=== PATIENT | female | born 1955 | race Hispanic/Latino ===

== ENCOUNTER 2018-09-21 07:20 | Emergency (ER) | payer OTHER ==
--- OUTSIDE RECORDS SUMMARY | 2018-09-21 07:22 | XMS REPORT ---
:1955 Author Organization eClinicalWorks Care Team Providers Name Role Phone [place] Provider Role Unavailable Allergies, Adverse Reactions, Alerts Substance Reaction Event Type [place] Info Not Available Drug Allergy Problems Problem Type Condition Code Onset Dates Condition Status Assessment Pain in joint of left foot M25.572 Active Medications Medication Code Code Instructions Start End Date Status Dosage System Date Lisinopril [facility] 77891638299 40 MG Oral Active (Prior Auth: Rx Ref#:[id number]) Amlodipine ND 92942149641 5 MG Oral Active (Prior Besylate Auth: Rx Ref#:[id number]) Acetaminophen- ND 08843920358 300-30 MG Oral Active (Schedule Codeine #3 III Drug) (Prior Auth: Rx Ref#:[id number]) Results No Known Results Summary Purpose eClinicalWorks Submission
[2018-09-21 08:10] LABS: Urine Blood TRACE (NEG); Urine Glucose NEGATIVE (NEG); Urine Protein NEGATIVE (NEG); Urine pH 6.5 (5.0-7.0)
[2018-09-21 08:11] LABS: Absolute Lymphocytes (CBC) 2.2 K/uL (0.7-4.9); Absolute Monocytes 0.5 K/uL (0.1-1.3); Absolute Neutrophil 4.7 K/uL (1.8-8.0); Basophils % 0.7 % (0-1.3); Eosinophils % 2.1 % (0-4.4); Hematocrit 37.8 % (36.0-45.0); Lymphocytes % 28.9 % (15.3-44.8); MPV 8.3 fL (7.6-11.3); RBC Red Blood Cell Count 4.32 M/uL (3.86-4.86)
[2018-09-21] MEDS ORDERED: NA CHLORIDE 0.9% 1,000 ML ONE (08:14)
[2018-09-21] MEDS ORDERED: PANTOPRAZOLE 40 MG INJ ONE (08:14)
[2018-09-21 08:30] LABS: ALT/SGPT 15 U/L (12-78); AST/SGOT 13 U/L (15-37); Albumin 3.7 g/dL (3.4-5.0); Alkaline Phosphatase 102 U/L (45-117); BUN Blood Urea Nitrogen 14 mg/dL (7-18); Bicarbonate 29 mmol/L (21-32); Bilirubin Direct 0.1 mg/dL (0-0.2); Bilirubin Total 0.4 mg/dL (0.2-1.0); Glucose Level 103 mg/dL (74-106); Lipase 88 U/L (73-393); Potassium 3.8 mmol/L (3.5-5.1); Protein, Total 7.4 g/dL (6.4-8.2); Sodium Level 141 mmol/L (136-145)
[2018-09-21] MEDS ORDERED: FENTANYL CITR 100 MCG/2 ML ONE (08:32)
--- NOTE | 2018-09-21 09:14 | RAD REPORT ---
EXAM DESCRIPTION: CT - Abdomen Pelvis W Contrast - 09/21/2018 9:01 am CLINICAL HISTORY: Abdominal pain, left lower quadrant pain, history of gastric sleeve COMPARISON: None. TECHNIQUE: Biphasic, helical CT imaging of the abdomen and pelvis was performed following 100 ml non -ionic IV contrast. No oral contrast administered. All CT scans are performed using dose optimization technique as appropriate and may include automated exposure control or mA/KV adjustment according to patient size. FINDINGS: No suspicious findings in the lung bases. No pericardial thickening or effusion. The liver, spleen, and pancreas show no suspicious findings. Gallbladder and biliary tree are also wi thout suspicious finding. Liver is borderline to mild fatty infiltrated. Symmetric renal function is seen with no hydronephrosis or suspicious renal mass. No pyelonephritis o r acute parenchymal process. A 3 centimeter medial upper pole right renal cyst is present. An additio nal 10 millimeter cyst is present upper pole right kidney. No urinary bladder abnormality. Uterus and ovaries show no suspicious findings. Vascular calcifications and phleboliths are seen along the pelv ic floor. No adrenal abnormalities. Gastric sleeve surgical changes are noted. Small hiatal hernia is present. An acute gastric process i s not suspected. No dilated large or small bowel. No diverticulitis or acute left lower quadrant abno rmality seen. No appendicitis findings. No free air, free fluid or inflammatory stranding. No mass or bulky lymphadenopathy. No omental th ickening. Patient has a 2.5 centimeter fat only umbilical hernia. Patient has a 10 cm supraumbilical ventral hernia at the level of the left lobe liver. This contains only fat. Neck is 5 cm. Disc and bony degenerative changes are present. No acute finding. No acute vascular process. IMPRESSION: No diverticulitis or other abnormality in the left lower quadrant to explain the patient 's pain pattern. Large upper abdominal ventral hernia 10 cm in diameter with a 5 centimeter neck. This contains only f at tissue. Borderline to mild fatty infiltration of the liver. Additional nonacute findings detailed in the bod y of the report.
--- NOTE | 2018-09-21 09:24 | ER ---
Nurse's Notes [facility] Name: Anaid Martinez Age: 63 yrs Sex: Female : 1955 Arrival Date: 09/21/2018 Time: 07:27 Bed 19 Private MD: None, None Diagnosis: Ventral hernia without obstruction or gangrene;Lower abdominal pain, unspecified Presentation: 09/21 07:35 Presenting complaint: Patient states: Sudden onset LLQ pain that began at around 0400 ph this morning, also reports nausea and loose stools, denies fever or vomiting. Transition of care: patient was not received from another setting of care. Onset of symptoms was September 21, 2018. Risk Assessment: Do you want to hurt yourself or someone else? Patient reports no desire to harm self or others. Initial Sepsis Screen: Does the patient meet any 2 criteria? No. Patient's initial sepsis screen is negative. Does the patient have a suspected source of infection? No. Patient's initial sepsis screen is negative. Care prior to arrival: None. 07:35 Method Of Arrival: Ambulatory ph 07:35 Acuity: KATHY 3 ph Historical: - Allergies: 07:37 No Known Allergies; ph - Home Meds: 07:37 Lisinopril Oral [Active]; ph - PMHx: 07:37 Arthritis; borderline diabetic; Hypertension; ph - PSHx: 07:37 gastric sleeve; ph - Immunization history:: Adult Immunizations unknown. - Social history:: Smoking status: Patient/guardian denies using tobacco. - Ebola Screening: : No symptoms or risks identified at this time. Screenin:47 Abuse screen: Denies threats or abuse. Denies injuries from another. Nutritional bp screening: No deficits noted. Tuberculosis screening: No symptoms or risk factors identified. Fall Risk None identified. Assessment: 07:40 General: Appears in no apparent distress. comfortable, obese, Behavior is cooperative, bp appropriate for age, anxious. Pain: Complains of pain in abdomen. Neuro: Level of Consciousness is awake, alert, obeys commands, Oriented to person, place, time, situation, Appropriate for age. Cardiovascular: No deficits noted. Respiratory: Airway is patent Respiratory effort is even, unlabored, Respiratory pattern is regular, symmetrical. GI: Bowel sounds present X 4 quads. Abd is soft X 4 quads. : No signs and/or symptoms were reported regarding the genitourinary system. EENT: No deficits noted. Derm: No deficits noted. Musculoskeletal: Circulation, motion, and sensation intact. Range of motion: intact in all extremities. 09:16 Reassessment: PT RETURNED FROM CT. ALL CURRENT STUDIES COMPLETED. bp 10:15 Reassessment: PT D/C HOME AMBULATORY WITH FAMILY, DX WITH VENTRAL HERNIA AND INTESTINAL bp GAS. Vital Signs: 07:36 BP 147 / 83; Pulse 56; Resp 18; Temp 97.3; Pulse Ox 97% on R/A; Weight 90.72 kg; Height ph 5 ft. 5 in. (165.10 cm); 08:11 BP 132 / 69; Pulse 53; Resp 14; Pulse Ox 98% ; bp 09:16 BP 112 / 71; Pulse 49; Resp 14; Pulse Ox 100% ; bp 10:15 BP 136 / 59; Pulse 55; Resp 14; Pulse Ox 98% ; bp 07:36 Body Mass Index 33.28 (90.72 kg, 165.10 cm) ph ED Course: 07:27 Patient arrived in ED. mr 07:27 None, None is Private Physician. mr 07:28 Arnold Domingo, RN is Primary Nurse. jd3 07:30 Denys Rogers, BRYANNA is Primary Nurse. bp 07:31 Fariba Chan FNP-C [facility]. snw 07:31 Matheus Olvera MD is Attending Physician. snw 07:36 Triage completed. ph 07:38 Arm band placed on Patient placed in an exam room. ph 07:47 Patient has correct armband on for positive identification. Bed in low position. Call bp light in reach. Side rails up X2. Adult w/ patient. 07:55 Inserted saline lock: 20 gauge in right antecubital area, using aseptic technique. bp Blood collected. 09:02 CT Abd/Pelvis - W/Contrast In Process Unspecified. EDMS 10:15 No provider procedures requiring assistance completed. IV discontinued, intact, bp bleeding controlled, No redness/swelling at site. Pressure dressing applied. Administered Medications: 07:55 Drug: NS 0.9% 1000 ml Route: IV; Rate: 125 ml/hr; Site: right antecubital; bp 10:06 Follow up: IV Status: Completed infusion; IV Intake: 250ml bp 07:55 Drug: ProTONIX 40 mg Route: IVP; Site: right antecubital; bp 09:24 Follow up: Response: Pain is unchanged, physician notified bp 09:24 Follow up: Response: No adverse reaction bp 08:25 Drug: fentaNYL (PF) 25 mcg Route: IVP; Site: right antecubital; bp 09:24 Follow up: Response: Pain is unchanged, physician notified bp 10:05 Drug: Simethicone 120 mg {Note: RECD FROM PHARMACY AT 1005.} Route: PO; bp 10:06 Follow up: Response: Pain is decreased bp Intake: 10:06 IV: 250ml; Total: 250ml. bp Outcome: 09:24 Discharge ordered by MD. snw 10:16 Discharged to home ambulatory, with family. bp 10:16 Condition: stable 10:16 Discharge instructions given to patient, family, Instructed on discharge instructions, follow up and referral plans. medication usage, Demonstrated understanding of instructions, follow-up care, medications, Prescriptions given X 1. 10:17 Patient left the ED. bp Signatures: Dispatcher [employer] EDMS Fariba Chan, REVENUE DIRECTOR-C REVENUE DIRECTOR-Csnw [place] MarkMavis, RN RN Arnold Molina RN RN Denys Mir RN RN bp Corrections: (The following items were deleted from the chart) 09:21 09:16 BP 197 / 54; Pulse 92bpm; Resp 19bpm; Pulse Ox 99%; bp bp
--- NOTE | 2018-09-21 09:24 | EDPHYS ---
Physician Documentation [facility] Name: Anaid Martinez Age: 63 yrs Sex: Female : 1955 Arrival Date: 09/21/2018 Time: 07:27 Bed 19 Private MD: None, None ED Physician Matheus Olvera HPI: 09/21 07:49 This 63 yrs old Female presents to ER via Ambulatory with complaints of snw Abdominal Pain. 07:49 The patient presents with abdominal pain in the periumbilical area. Onset: The snw symptoms/episode began/occurred suddenly, at 04:00. The symptoms do not radiate. The symptoms are described as crampy, "every 20 seconds". Severity of pain: At its worst the pain was moderate severe. The patient has not experienced similar symptoms in the past. The patient has not recently seen a physician, sees someone at [facility]. Historical: - Allergies: 07:37 No Known Allergies; ph - Home Meds: 07:37 Lisinopril Oral [Active]; ph - PMHx: 07:37 Arthritis; borderline diabetic; Hypertension; ph - PSHx: 07:37 gastric sleeve; ph - Immunization history:: Adult Immunizations unknown. - Social history:: Smoking status: Patient/guardian denies using tobacco. - Ebola Screening: : No symptoms or risks identified at this time. ROS: 07:49 Constitutional: Negative for fever, chills, and weight loss, Eyes: Negative for injury, snw pain, redness, and discharge, ENT: Negative for injury, pain, and discharge, Neck: Negative for injury, pain, and swelling, Cardiovascular: Negative for chest pain, palpitations, and edema, Respiratory: Negative for shortness of breath, cough, wheezing, and pleuritic chest pain, Back: Negative for injury and pain, : Negative for injury, bleeding, discharge, and swelling, MS/Extremity: Negative for injury and deformity, Skin: Negative for injury, rash, and discoloration, Neuro: Negative for headache, weakness, numbness, tingling, and seizure. 07:49 Abdomen/GI: Positive for abdominal pain, Negative for vomiting, diarrhea. Exam: 07:48 Constitutional: This is a well developed, well nourished patient who is awake, alert, snw and in no acute distress. Head/Face: Normocephalic, atraumatic. Eyes: Pupils equal round and reactive to light, extra-ocular motions intact. Lids and lashes normal. Conjunctiva and sclera are non-icteric and not injected. Cornea within normal limits. Periorbital areas with no swelling, redness, or edema. ENT: Nares patent. No nasal discharge, no septal abnormalities noted. Tympanic membranes are normal and external auditory canals are clear. Oropharynx with no redness, swelling, or masses, exudates, or evidence of obstruction, uvula midline. Mucous membranes moist. Neck: Trachea midline, no thyromegaly or masses palpated, and no cervical lymphadenopathy. Supple, full range of motion without nuchal rigidity, or vertebral point tenderness. No Meningismus. Chest/axilla: Normal chest wall appearance and motion. Nontender with no deformity. No lesions are appreciated. Cardiovascular: Regular rate and rhythm with a normal S1 and S2. No gallops, murmurs, or rubs. Normal PMI, no JVD. No pulse deficits. Respiratory: Lungs have equal breath sounds bilaterally, clear to auscultation and percussion. No rales, rhonchi or wheezes noted. No increased work of breathing, no retractions or nasal flaring. Back: No spinal tenderness. No costovertebral tenderness. Full range of motion. Skin: Warm, dry with normal turgor. Normal color with no rashes, no lesions, and no evidence of cellulitis. MS/ Extremity: Pulses equal, no cyanosis. Neurovascular intact. Full, normal range of motion. Neuro: Awake and alert, GCS 15, oriented to person, place, time, and situation. Cranial nerves II-XII grossly intact. Motor strength 5/5 in all extremities. Sensory grossly intact. Cerebellar exam normal. Normal gait. 07:48 Abdomen/GI: Inspection: abdomen appears normal, Bowel sounds: normal, Palpation: mild abdominal tenderness, in the umbilical area and anterior aspect of left lateral abdomen. Vital Signs: 07:36 BP 147 / 83; Pulse 56; Resp 18; Temp 97.3; Pulse Ox 97% on R/A; Weight 90.72 kg; Height ph 5 ft. 5 in. (165.10 cm); 08:11 BP 132 / 69; Pulse 53; Resp 14; Pulse Ox 98% ; bp 09:16 BP 112 / 71; Pulse 49; Resp 14; Pulse Ox 100% ; bp 10:15 BP 136 / 59; Pulse 55; Resp 14; Pulse Ox 98% ; bp 07:36 Body Mass Index 33.28 (90.72 kg, 165.10 cm) ph MDM: 07:31 Patient medically screened. snw 09:31 Data reviewed: vital signs, nurses notes. Data interpreted: Pulse oximetry: on room air snw is 100 %. Interpretation: normal. Special discussion: Based on the patient's Hx, exam, and Dx evaluation, there is no indication for emergent surgery or inpatient Tx. It is understood by the patient/guardian that if the Sx's persist or worsen they need to return immediately for re-evaluation. Based on the history and exam findings, there is no indication for further emergent testing or inpatient evaluation. I discussed with the patient/guardian the need to see the sas bi developer for further evaluation of the symptoms. I discussed with the patient/guardian the need to see the primary care provider for further evaluation of the symptoms. 09/21 07:48 Order name: Basic Metabolic Panel; Complete Time: 08:37 snw 09/21 07:48 Order name: CBC with Diff; Complete Time: 08:20 w 09/21 07:48 Order name: Creatinine for Radiology; Complete Time: 08:30 w 09/21 07:48 Order name: Hepatic Function; Complete Time: 08:37 w 09/21 07:48 Order name: Lipase; Complete Time: 08:37 w 09/21 08:02 Order name: Urine Dipstick--Ancillary (enter results); Complete Time: 08:20 eb 09/21 07:48 Order name: IV Saline Lock; Complete Time: 08:10 w 09/21 07:48 Order name: Labs collected and sent; Complete Time: 08:10 w 09/21 07:48 Order name: CT Abd/Pelvis - W/Contrast; Complete Time: 09:21 snw Administered Medications: 07:55 Drug: NS 0.9% 1000 ml Route: IV; Rate: 125 ml/hr; Site: right antecubital; bp 10:06 Follow up: IV Status: Completed infusion; IV Intake: 250ml bp 07:55 Drug: ProTONIX 40 mg Route: IVP; Site: right antecubital; bp 09:24 Follow up: Response: Pain is unchanged, physician notified bp 09:24 Follow up: Response: No adverse reaction bp 08:25 Drug: fentaNYL (PF) 25 mcg Route: IVP; Site: right antecubital; bp 09:24 Follow up: Response: Pain is unchanged, physician notified bp 10:05 Drug: Simethicone 120 mg {Note: RECD FROM PHARMACY AT 1005.} Route: PO; bp 10:06 Follow up: Response: Pain is decreased bp Disposition: 16:00 Co-signature as Attending Physician, Matheus Olvera MD I agree with the assessment and kdr plan of care. Disposition: 09/21/18 09:24 Discharged to Home. Impression: Ventral hernia without obstruction or gangrene, Lower abdominal pain, unspecified. - Condition is Stable. - Discharge Instructions: Abdominal Pain, Adult, Intestinal Gas and Gas Pains, Pediatric, Ventral Hernia. - Prescriptions for Protonix 40 mg Oral Tablet - take 1 tablet by ORAL route once daily; 30 tablet. - Medication Reconciliation Form, Thank You Letter, Antibiotic Education, Prescription Opioid Use form. - Follow up: Private Physician; When: 1 - 2 days; Reason: Recheck today's complaints, Continuance of care, Re-evaluation by your physician. Follow up: Emergency Department; When: As needed; Reason: Worsening of condition. Signatures: Dispatcher [employer] EDTN Matheus Olvera MD MD [facility] Fariba Chan, SHARE HOLDER-C SHARE HOLDER-Csnw Mavis Ruth, BRYANNA RN Denys Rogers RN RN bp Corrections: (The following items were deleted from the chart) 10:17 09:24 09/21/2018 09:24 Discharged to Home. Impression: Ventral hernia without bp obstruction or gangrene; Lower abdominal pain, unspecified. Condition is Stable. Forms are Medication Reconciliation Form, Thank You Letter, Antibiotic Education, Prescription Opioid Use. Follow up: Private Physician; When: 1 - 2 days; Reason: Recheck today's complaints, Continuance of care, Re-evaluation by your physician. Follow up: Emergency Department; When: As needed; Reason: Worsening of condition. snw
[2018-09-21] MEDS ORDERED: SIMETHICONE 80 MG TAB PO ONE (10:00)
[2018-09-21 10:28] VITALS: TEMP 97.3
[2018-09-21 10:31] VITALS: BP 136/59; O2SAT 98
== END 2018-09-21 10:17 | disposition home or self-care (01) ==
LOC: ER 07:20
DX: K43.9 Ventral hernia without obstruction or gangrene (principal); I10 Essential (primary) hypertension
CPT/HCPCS: 36415; 74177; 80048; 80076; 81003; 83690; 85025; 96361; 96374; 96375; 99284; C9113; J3010; J7030; Q9967

== ENCOUNTER 2019-03-15 06:41 | Day surgery (SDC) | payer OTHER ==
--- OUTSIDE RECORDS SUMMARY | 2019-03-15 06:43 | XMS REPORT ---
:1955 Author Organization eClinicalWorks Care Team Providers Name Role Phone [place] Provider Role Unavailable Allergies, Adverse Reactions, Alerts Substance Reaction Event Type [place] Info Not Available Drug Allergy Problems Problem Type Condition Code Onset Dates Condition Status Assessment Pain in joint of left foot M25.572 Active Medications Medication Code Code Instructions Start End Date Status Dosage System Date Lisinopril [facility] 39642547593 40 MG Oral Active (Prior Auth: Rx Ref#:[id number]) Amlodipine ND 26464199825 5 MG Oral Active (Prior Besylate Auth: Rx Ref#:[id number]) Acetaminophen- ND 99524346248 300-30 MG Oral Active (Schedule Codeine #3 III Drug) (Prior Auth: Rx Ref#:[id number]) Results No Known Results Summary Purpose eClinicalWorks Submission
[2019-03-15 07:24] VITALS: TEMP 97.6
[2019-03-15] MEDS ORDERED: Ringers Lactate 1,000 ML IV ONE (07:24)
[2019-03-15] MEDS ORDERED: LIDOCAINE 1% MPF 5 ML VIAL ONE (08:32)
[2019-03-15] MEDS ORDERED: PROPOFOL 200 MG/20 ML VIAL IV ONE (08:32)
[2019-03-15 08:54] VITALS: BP 113/65; O2SAT 93
--- NOTE | 2019-03-15 19:04 | OP ---
Surgeon: Osbaldo Arita MD Procedure To Be Performed: Esophagogastroduodenoscopy. Indications For Procedure: Dyspepsia, abdominal pain, dysphagia. Plan For Anesthesia: Monitored anesthesia care. Complexity: Average. Technique: After obtaining informed consent from the patient and explaining risks and complications, which include, but are not limited to, bleeding, infection, perforation, and anesthesia complication , the patient was placed in a left lateral position, and sedation was given. The scope was advanced into the mouth and carefully guided up till the third portion of the duodenum. After the completion of the examination, the scope and equipment were withdrawn and procedure terminated in a safe manner. Findings: Esophagus: There was mild tortuosity seen in the entire esophagus, likely due to prior ga stric operations. No stenosis was seen. In the distal part, a small 2 cm hiatal hernia was visualiz ed. The Z-line was irregular. The GE junction was around 34 cm. Biopsies were taken from the irreg ular Z-line. Stomach: Mild patchy erythema seen in the body and antrum. Biopsies taken. In the whole stomach, t here was evidence of gastric sleeve surgery. Duodenum: The bulb, second, and third portion appeared normal except for mild granularity. Biopsies were taken from the third portion. Complications: None. Tolerance To Anesthesia: Excellent. Preoperative Diagnoses: Postoperative changes in the esophagus and the stomach, gastritis, hiatal he rnia. Plan: 1.Await pathology results. 2.Follow up in the GI clinic in 2 weeks. 3.Oral PPI once a day. 4.May need ultrasound if not recently done. US/MODL Voice ID: [id number] Report ID: [id number]
== END 2019-03-15 09:12 | disposition home or self-care (01) ==
LOC: OR 06:41
PROVIDERS: ATTEND Internal Medicine Gastroenterology
PROC: 0DB78ZX Excision of Stomach, Pylorus, Via Natural or Artificial Opening Endoscopic, Diagnostic (ICD-10-PCS; 2019-03-15)
PROC: 0DB68ZX Excision of Stomach, Via Natural or Artificial Opening Endoscopic, Diagnostic (ICD-10-PCS; 2019-03-15)
PROC: 0DB58ZX Excision of Esophagus, Via Natural or Artificial Opening Endoscopic, Diagnostic (ICD-10-PCS; 2019-03-15)
PROC: 0DB98ZX Excision of Duodenum, Via Natural or Artificial Opening Endoscopic, Diagnostic (ICD-10-PCS; principal; 2019-03-15 08:00)
DX: K29.50 Unspecified chronic gastritis without bleeding (principal); B96.81 Helicobacter pylori [H. pylori] as the cause of diseases classified elsewhere; K44.9 Diaphragmatic hernia without obstruction or gangrene; Z98.84 Bariatric surgery status; R13.10 Dysphagia, unspecified; R68.81 Early satiety; R14.0 Abdominal distension (gaseous); K59.00 Constipation, unspecified; I10 Essential (primary) hypertension; Z79.899 Other long term (current) drug therapy
CPT/HCPCS: 88305; 88312; J2704

== ENCOUNTER 2019-03-17 22:53 | Emergency (ER) | payer OTHER ==
--- OUTSIDE RECORDS SUMMARY | 2019-03-17 22:55 | XMS REPORT ---
:1955 Author Organization eClinicalWorks Care Team Providers Name Role Phone Mu [place] Provider Role Unavailable Allergies, Adverse Reactions, Alerts Substance Reaction Event Type [place] Info Not Available Drug Allergy Problems Problem Type Condition Code Onset Dates Condition Status Assessment Pain in joint of left foot M25.572 Active Medications Medication Code Code Instructions Start End Date Status Dosage System Date Lisinopril [facility] [id number] 40 MG Oral Active (Prior Auth: Rx Ref#:[id number]) Amlodipine ND 36798561373 5 MG Oral Active (Prior Besylate Auth: Rx Ref#:[id number]) Acetaminophen- ND 28826185750 300-30 MG Oral Active (Schedule Codeine #3 III Drug) (Prior Auth: Rx Ref#:[id number]) Results No Known Results Summary Purpose eClinicalWorks Submission
[2019-03-17] MEDS ORDERED: KETOROLAC 30 MG/ML INJ ONE (23:33)
--- NOTE | 2019-03-18 00:08 | EDPHYS ---
Physician Documentation [facility] Name: Anaid Martinez Age: 64 yrs Sex: Female : 1955 Arrival Date: 03/17/2019 Time: 22:57 Bed 7 Private MD: ED Physician John Mehta HPI: 03/17 23:45 This 64 yrs old Female presents to ER via Wheelchair with complaints of Fall pm1 Injury. 23:45 Details of fall: The patient fell from an upright position, while walking. Onset: The pm1 symptoms/episode began/occurred just prior to arrival. Associated injuries: The patient sustained right hamstring. Severity of symptoms: in the emergency department the symptoms are actually worse. The patient has experienced a previous episode, and the symptoms today are exactly the same, December 2018. Patient with workman's compensation injury at the same location, right hamstring that she injured in December 2018. Has appointment with workman's compensation physician tomorrow for reevaluation. Patient was walking at home and tripped on some furniture with left foot and caused more pain to there right hamstring. No headache, head injury, neck pain, LOC. Historical: - Allergies: 23:09 Hydrocodone-Acetaminophen; tl2 - Home Meds: 23:09 lisinopril Oral [Active]; tl2 - PMHx: 23:09 Arthritis; borderline diabetic; Hypertension; tl2 - PSHx: 23:09 None; tl2 - Immunization history:: Adult Immunizations up to date. - Social history:: Smoking status: Patient/guardian denies using tobacco. - Ebola Screening: : No symptoms or risks identified at this time. ROS: 23:45 Constitutional: Negative for fever, chills, and weight loss, Eyes: Negative for injury, pm1 pain, redness, and discharge, ENT: Negative for injury, pain, and discharge, Neck: Negative for injury, pain, and swelling, Cardiovascular: Negative for chest pain, palpitations, and edema, Respiratory: Negative for shortness of breath, cough, wheezing, and pleuritic chest pain, Abdomen/GI: Negative for abdominal pain, nausea, vomiting, diarrhea, and constipation, Back: Negative for injury and pain, : Negative for injury, bleeding, discharge, and swelling. 23:45 Skin: Negative for injury, rash, and discoloration, Neuro: Negative for headache, weakness, numbness, tingling, and seizure. 23:45 MS/extremity: Positive for pain, of the right hamstring, Negative for deformity. Exam: 23:45 Constitutional: This is a well developed, well nourished patient who is awake, alert, pm1 and in no acute distress. Head/Face: Normocephalic, atraumatic. Neck: Trachea midline, no thyromegaly or masses palpated, and no cervical lymphadenopathy. Supple, full range of motion without nuchal rigidity, or vertebral point tenderness. No Meningismus. Chest/axilla: Normal chest wall appearance and motion. Nontender with no deformity. No lesions are appreciated. Cardiovascular: Regular rate and rhythm with a normal S1 and S2. No gallops, murmurs, or rubs. Normal PMI, no JVD. No pulse deficits. Respiratory: Lungs have equal breath sounds bilaterally, clear to auscultation and percussion. No rales, rhonchi or wheezes noted. No increased work of breathing, no retractions or nasal flaring. Abdomen/GI: Soft, non-tender, with normal bowel sounds. No distension or tympany. No guarding or rebound. No evidence of tenderness throughout. Back: No spinal tenderness. No costovertebral tenderness. Full range of motion. Skin: Warm, dry with normal turgor. Normal color with no rashes, no lesions, and no evidence of cellulitis. 23:45 Musculoskeletal/extremity: Extremities: grossly normal except: noted in the right hamstring: pain, tenderness, There is no evidence of decreased ROM, deformity, Circulation is intact in all extremities. Sensation intact. Weight bearing: able to fully bear weight. Vital Signs: 23:09 BP 134 / 96; Pulse 101; Resp 18; Temp 98.1(O); Pulse Ox 95% on R/A; Weight 90.72 kg; tl2 Height 4 ft. 11 in. (149.86 cm); Pain 06/30; 03/18 00:11 BP 130 / 88; Pulse 99; Resp 18; Temp 97.6; Pulse Ox 97% on R/A; ea 03/17 23:09 Body Mass Index 40.39 (90.72 kg, 149.86 cm) tl2 MDM: 03/17 23:05 Patient medically screened. xuan 03/18 00:00 ED course: Patient walked out of the room, feeling better and requesting to go home. pm1 00:05 Data reviewed: vital signs. Data interpreted: Pulse oximetry: on room air is 95 %. pm1 Interpretation: normal. Counseling: I had a detailed discussion with the patient and/or guardian regarding: the historical points, exam findings, and any diagnostic results supporting the discharge/admit diagnosis, the need for outpatient follow up, a orthopedic surgeon, to return to the emergency department if symptoms worsen or persist or if there are any questions or concerns that arise at home. Administered Medications: 03/17 23:25 Drug: TORadol 60 mg Route: IM; Site: right gluteus; ea 03/18 00:00 Follow up: Response: No adverse reaction; Pain is decreased ea Disposition: 09:37 Co-signature as Attending Physician, John Mehta MD I agree with the assessment and [facility] plan of care. Disposition: 03/18/19 00:07 Discharged to Home. Impression: Strain of muscle, fascia and tendon of the posterior muscle group at thigh level, right thigh. - Condition is Stable. - Discharge Instructions: Hamstring Strain. - Medication Reconciliation Form, Thank You Letter, Antibiotic Education, Prescription Opioid Use form. - Follow up: Emergency Department; When: As needed; Reason: Worsening of condition. Follow up: Private Physician; When: 2 - 3 days; Reason: Recheck today's complaints, Continuance of care, Re-evaluation by your physician. - Problem is new. - Symptoms have improved. Signatures: John Mehta MD MD cha Marinas, Patrick, NP [employer] pm1 Nurys Markham RN RN tl2 Delilah Ewing RN RN ea Corrections: (The following items were deleted from the chart) 00:14 00:07 03/18/2019 00:07 Discharged to Home. Impression: Strain of muscle, fascia and ea tendon of the posterior muscle group at thigh level, right thigh. Condition is Stable. Forms are Medication Reconciliation Form, Thank You Letter, Antibiotic Education, Prescription Opioid Use. Follow up: Emergency Department; When: As needed; Reason: Worsening of condition. Follow up: Private Physician; When: 2 - 3 days; Reason: Recheck today's complaints, Continuance of care, Re-evaluation by your physician. Problem is new. Symptoms have improved. pm1
--- NOTE | 2019-03-18 00:08 | ER ---
Nurse's Notes [facility] Name: Anaid Martinez Age: 64 yrs Sex: Female : 1955 Arrival Date: 03/17/2019 Time: 22:57 Bed 7 Private MD: Diagnosis: Strain of muscle, fascia and tendon of the posterior muscle group at thigh level, right thigh Presentation: 03/17 23:07 Presenting complaint: Patient states: Previously injured right leg on January 17 and is tl2 being treated for worker's comp. Pt reports that she tripped and fell and now has increased pain to right leg. Pt us unable to lay or sit down. Transition of care: patient was not received from another setting of care. Onset of symptoms was March 17, 2019 at 22:00. Risk Assessment: Do you want to hurt yourself or someone else? Patient reports no desire to harm self or others. Initial Sepsis Screen: Does the patient meet any 2 criteria? No. Patient's initial sepsis screen is negative. Does the patient have a suspected source of infection? No. Patient's initial sepsis screen is negative. Care prior to arrival: None. 23:07 Method Of Arrival: Wheelchair tl2 23:07 Acuity: KATHY 4 tl2 Historical: - Allergies: 23:09 Hydrocodone-Acetaminophen; tl2 - Home Meds: 23:09 lisinopril Oral [Active]; tl2 - PMHx: 23:09 Arthritis; borderline diabetic; Hypertension; tl2 - PSHx: 23:09 None; tl2 - Immunization history:: Adult Immunizations up to date. - Social history:: Smoking status: Patient/guardian denies using tobacco. - Ebola Screening: : No symptoms or risks identified at this time. Screenin:09 Abuse screen: Denies threats or abuse. Nutritional screening: No deficits noted. tl2 Tuberculosis screening: No symptoms or risk factors identified. Fall Risk Gait- Impaired (20 pts.). Assessment: 23:26 General: Appears uncomfortable, Behavior is calm, cooperative, appropriate for age. ea Pain: Complains of pain in right lower back. Neuro: Level of Consciousness is awake, alert, obeys commands, Oriented to person, place, time, situation. Cardiovascular: Patient's skin is warm and dry. Respiratory: Airway is patent Respiratory effort is even, unlabored, Respiratory pattern is regular, symmetrical. Derm: Skin is pink, warm \T\ dry. 03/18 00:10 Reassessment: Patient and/or family updated on plan of care and expected duration. Pain ea level reassessed. Patient is alert, oriented x 3, equal unlabored respirations, skin warm/dry/pink. Discharge instruction given to patient, verbalized the understanding of instruction Patient states symptoms have improved. Vital Signs: 03/17 23:09 BP 134 / 96; Pulse 101; Resp 18; Temp 98.1(O); Pulse Ox 95% on R/A; Weight 90.72 kg; tl2 Height 4 ft. 11 in. (149.86 cm); Pain 10/10; 03/18 00:11 BP 130 / 88; Pulse 99; Resp 18; Temp 97.6; Pulse Ox 97% on R/A; ea 03/17 23:09 Body Mass Index 40.39 (90.72 kg, 149.86 cm) tl2 ED Course: 03/17 22:57 Patient arrived in ED. mr 23:02 Sage Skelton NP is PHCP. pm1 23:02 John Mehta MD is Attending Physician. pm1 23:08 Triage completed. tl2 23:09 Arm band placed on right wrist. tl2 23:21 Delilah Ewing RN is Primary Nurse. ea 23:26 Patient has correct armband on for positive identification. Bed in low position. Call ea light in reach. Adult w/ patient. 03/18 00:12 No provider procedures requiring assistance completed. Patient did not have IV access ea during this emergency room visit. Administered Medications: 03/17 23:25 Drug: TORadol 60 mg Route: IM; Site: right gluteus; ea 03/18 00:00 Follow up: Response: No adverse reaction; Pain is decreased ea Outcome: 00:07 Discharge ordered by MD. pm1 00:13 Discharged to home ambulatory, with family. ea 00:13 Condition: improved 00:13 Discharge instructions given to patient, Instructed on discharge instructions, follow up and referral plans. Demonstrated understanding of instructions, follow-up care. 00:14 Patient left the ED. ea Signatures: Asia Mark mr Sage Skelton, [employer] pm1 Nurys Markham RN RN tl2 Ewing, Delilah, RN RN ea Corrections: (The following items were deleted from the chart) 03/17 23:25 23:25 TORadol 60 mg IM in right deltoid elie ea
[2019-03-18 00:56] VITALS: BP 130/88; TEMP 97.6; O2SAT 97
== END 2019-03-18 00:14 | disposition home or self-care (01) ==
LOC: ER 22:53
DX: S76.311A Strain of muscle, fascia and tendon of the posterior muscle group at thigh level, right thigh, initial encounter (principal); W18.09XA Striking against other object with subsequent fall, initial encounter; Y93.01 Activity, walking, marching and hiking; Y92.009 Unspecified place in unspecified non-institutional (private) residence as the place of occurrence of the external cause; I10 Essential (primary) hypertension; Z88.5 Allergy status to narcotic agent
CPT/HCPCS: 96372; 99283

== ENCOUNTER 2019-09-23 15:32 | Emergency (ER) | payer OTHER ==
--- OUTSIDE RECORDS SUMMARY | 2019-09-23 15:34 | XMS REPORT ---
:1955 Author Organization eClinical[employer] Care Team Providers Name Role Phone [place] Provider Role Unavailable Allergies, Adverse Reactions, Alerts Substance Reaction Event Type [place] Info Not Available Drug Allergy Problems Problem Type Condition Code Onset Dates Condition Status Assessment Primary osteoarthritis of right M17.11 Active knee Problem Primary osteoarthritis of right M17.11 Active knee Assessment Pain in joint of right knee M25.561 Active Medications Medication Code Code Instructions Start End Status Dosage System Date Date Acetaminophen-Codeine [facility] 95220981622 300-30 MG Oral Active (Schedule #3 III Drug) (Prior Auth: Rx Ref#:[id number]) HydrOXYzine HCl [facility] [address]-97 Active not defined Gabapentin [facility] [address]-47 Active not defined Omeprazole [facility] [address]-50 Active not defined Amlodipine Besylate [facility] 36376898404 5 MG Oral Active (Prior Auth: Rx Ref#:[id number]) Clarithromycin [facility] [address]-01 Active not defined Amoxicillin [facility] [address]-20 Active not defined MethylPREDNISolone [facility] [address]-77 Active not defined Cephalexin [facility] [address]-75 Active not defined Meloxicam [facility] [address]-74 Active not defined Lisinopril ND 18462129992 40 MG Oral Active (Prior Auth: Rx Ref#:[id number]) Flucelvax [facility] [address]-28 Active not Quadrivalent defined Results No Known Results Summary Purpose eClinicalWorks Submission
[2019-09-23] MEDS ORDERED: ALBUTEROL 2.5 MG/3 ML NEB SOL ONE (16:30)
[2019-09-23] MEDS ORDERED: IBUPROFEN 400 MG TAB ONE (16:30)
--- NOTE | 2019-09-23 17:16 | RAD REPORT ---
EXAM DESCRIPTION: Jennifer Ruvalcaba (2 Views)09/23/2019 4:36 pm CLINICAL HISTORY: Cough COMPARISON: 2012 FINDINGS: The lungs appear clear of acute infiltrate. The heart is mildly enlarged IMPRESSION: No acute abnormalities displayed
--- NOTE | 2019-09-23 17:18 | ER ---
Nurse's Notes [facility] Name: Anaid Martinez Age: 64 yrs Sex: Female : 1955 Arrival Date: 09/23/2019 Time: 15:34 Bed 5 Private MD: Diagnosis: Acute bronchitis, unspecified Presentation: 09/23 15:40 Presenting complaint: Patient states: Painful cough, sore throat and headache that ss began 4-5 days ago. Transition of care: patient was not received from another setting of care. Resp Distress? No respiratory distress is noted at this time. Onset of symptoms was September 18, 2019. Risk Assessment: Do you want to hurt yourself or someone else? Patient reports no desire to harm self or others. Initial Sepsis Screen: Does the patient meet any 2 criteria? No. Patient's initial sepsis screen is negative. Does the patient have a suspected source of infection? No. Patient's initial sepsis screen is negative. Care prior to arrival: None. 15:40 Method Of Arrival: Ambulatory ss 15:40 Acuity: KATHY 3 ss Triage Assessment: 15:50 General: Appears in no apparent distress. comfortable, Behavior is cooperative, bp appropriate for age, anxious. Pain: Complains of pain in head. EENT: No deficits noted. Neuro: No deficits noted. Cardiovascular: No deficits noted. Respiratory: Reports cough that is Breath sounds are clear bilaterally. GI: No signs and/or symptoms were reported involving the gastrointestinal system. : No signs and/or symptoms were reported regarding the genitourinary system. Derm: No deficits noted. Musculoskeletal: No deficits noted. Historical: - Allergies: 15:41 Hydrocodone-Acetaminophen; ss - PMHx: 15:41 Arthritis; borderline diabetic; Hypertension; ss - PSHx: 15:41 None; ss - Immunization history:: Adult Immunizations up to date. - Social history:: Smoking status: Patient/guardian denies using tobacco. - Ebola Screening: : Patient denies exposure to infectious person Patient denies travel to an Ebola-affected area in the 21 days before illness onset. Screenin:51 Abuse screen: Denies threats or abuse. Denies injuries from another. Nutritional bp screening: No deficits noted. Tuberculosis screening: No symptoms or risk factors identified. Fall Risk None identified. Assessment: 15:50 General: SEE TRIAGE NOTE. Cardiovascular: JVD is absent Patient's skin is warm and dry. bp Respiratory: Airway is patent Respiratory effort is even, unlabored. 17:19 Reassessment: D/C ON HOLD FOR NEB. bp 17:41 Reassessment: PT D/C HOME AMBULATORY, DX WITH ACUTE BRONCHITIS. bp Vital Signs: 15:39 BP 154 / 94; Pulse 84; Resp 19; Temp 97.6(TE); Pulse Ox 97% on R/A; Weight 99.79 kg; ss Height 5 ft. 0 in. (152.40 cm); Pain 10/10; 17:30 BP 147 / 85; Pulse 79; Resp 17; Temp 97.5; Pulse Ox 98% ; bp 15:39 Body Mass Index 42.97 (99.79 kg, 152.40 cm) ss ED Course: 15:34 Patient arrived in ED. mr 15:39 Arm band placed on right wrist. ss 15:41 Triage completed. ss 15:49 Denys Rogers, RN is Primary Nurse. bp 15:51 Patient has correct armband on for positive identification. Bed in low position. Call bp light in reach. Side rails up X2. 16:02 John Jimenez PA is PHCP. cp 16:02 Matheus Olvera MD is Attending Physician. cp 16:30 XRAY Chest Pa And Lat (2 Views) Sent. bp 16:36 XRAY Chest Pa And Lat (2 Views) In Process Unspecified. EDMS 17:41 No provider procedures requiring assistance completed. Patient did not have IV access bp during this emergency room visit. Administered Medications: 16:20 Drug: Albuterol 2.5 mg Route: Inhalation; bp 16:20 Drug: Ibuprofen 800 mg Route: PO; bp 17:19 Follow up: Response: No adverse reaction bp 17:41 Drug: TORadol 30 mg Route: IM; Site: left gluteus; bp 17:41 Follow up: Response: Pain is decreased bp Outcome: 17:17 Discharge ordered by . cp 17:42 Discharged to home ambulatory. bp 17:42 Condition: stable 17:42 Discharge instructions given to patient, Instructed on discharge instructions, follow up and referral plans. medication usage, Demonstrated understanding of instructions, follow-up care, medications, Prescriptions given X 2. 17:42 Patient left the ED. bp Signatures: Dispatcher [employer] EDRI Asia Mark mr Crys Pretty, RN RN ss John Jimenez PA PA Denys Rodríguez, RN RN bp
--- NOTE | 2019-09-23 17:19 | EDPHYS ---
Physician Documentation [facility] Name: Anaid Martinez Age: 64 yrs Sex: Female : 1955 Arrival Date: 09/23/2019 Time: 15:34 Bed 5 Private MD: ED Physician Matheus Olvera HPI: 09/23 16:15 This 64 yrs old Female presents to ER via Ambulatory with complaints of Cough, cp Congestion, Headache. 16:15 The patient or guardian reports cough, with productive sputum. cp 16:15 Onset: The symptoms/episode began/occurred 5 day(s) ago. Severity of symptoms: in the emergency department the symptoms are unchanged. Associated signs and symptoms: Pertinent positives: chest pain, with cough, fever, sore throat, Pertinent negatives: diarrhea, vomiting. The patient has been recently seen by a physician: the patient's primary care provider, earlier today, with similar presenting complaints, was given a prescription for antibiotics, given Tessalon pearls for cough and Medrol dose talisha, but the patient's symptoms have persisted. 16:15 Patient reports she was tested for influenza and strep at PCP office today and tests cp were negative. Historical: - Allergies: 15:41 Hydrocodone-Acetaminophen; ss - PMHx: 15:41 Arthritis; borderline diabetic; Hypertension; ss - PSHx: 15:41 None; ss - Immunization history:: Adult Immunizations up to date. - Social history:: Smoking status: Patient/guardian denies using tobacco. - Ebola Screening: : Patient denies exposure to infectious person Patient denies travel to an Ebola-affected area in the 21 days before illness onset. ROS: 16:20 Constitutional: Negative for body aches, chills, fever, poor PO intake. cp 16:20 Eyes: Negative for injury, pain, redness, and discharge. cp 16:20 ENT: Positive for sore throat, Negative for drainage from ear(s), ear pain, difficulty swallowing, difficulty handling secretions. 16:20 Neck: Negative for pain with movement, pain at rest, stiffness. 16:20 Cardiovascular: Positive for chest pain, with cough, Negative for edema. 16:20 Respiratory: Positive for cough, Negative for shortness of breath, wheezing. 16:20 Abdomen/GI: Negative for abdominal pain, vomiting, diarrhea, constipation. 16:20 : Negative for urinary symptoms. 16:20 Skin: Negative for rash. 16:20 Neuro: Positive for headache, Negative for altered mental status, syncope, weakness. 16:20 All other systems are negative. Exam: 16:30 Constitutional: The patient appears in no acute distress, alert, awake, non-toxic, well cp developed, well nourished. 16:30 Head/Face: Normocephalic, atraumatic. cp 16:30 Eyes: Periorbital structures: appear normal, Conjunctiva: normal, no exudate, no injection, Sclera: no appreciated abnormality, Lids and lashes: appear normal, bilaterally. 16:30 ENT: External ear(s): are unremarkable, Ear canal(s): are normal, clear, TM's: bulging, is not appreciated, bilaterally, erythema, is not appreciated, bilaterally, Nose: is normal, Mouth: Lips: moist, Oral mucosa: moist, Posterior pharynx: Tonsils: no enlargement, no exudate, Uvula: midline, non-edematous, erythema, that is mild, exudate, is not appreciated. 16:30 Neck: ROM/movement: pain, is not appreciated, limited range of motion, is not appreciated, Meningeal signs: are not present, nuchal rigidity, is not appreciated. 16:30 Chest/axilla: Inspection: normal, Palpation: is normal, no crepitus, no tenderness. 16:30 Cardiovascular: Rate: normal, Rhythm: regular, Edema: is not appreciated, JVD: is not appreciated. 16:30 Respiratory: the patient does not display signs of respiratory distress, Respirations: normal, no use of accessory muscles, no retractions, no splinting, no tachypnea, labored breathing, is not present, Breath sounds: bronchial sounds, that are mild, are heard diffusely, decreased breath sounds, are not appreciated, rhonchi, are not appreciated, stridor, is not appreciated, wheezing: is not appreciated. 16:30 Abdomen/GI: Exam negative for discomfort, distension, guarding, Inspection: abdomen appears normal. 16:30 Skin: no rash present. 16:30 Neuro: Orientation: to person, place \T\ time. Mentation: is normal, Motor: moves all fours, strength is normal. Vital Signs: 15:39 BP 154 / 94; Pulse 84; Resp 19; Temp 97.6(TE); Pulse Ox 97% on R/A; Weight 99.79 kg; ss Height 5 ft. 0 in. (152.40 cm); Pain 10/10; 17:30 BP 147 / 85; Pulse 79; Resp 17; Temp 97.5; Pulse Ox 98% ; bp 15:39 Body Mass Index 42.97 (99.79 kg, 152.40 cm) ss MDM: 16:11 Patient medically screened. cp 16:30 Differential Diagnosis: Bronchitis Influenza Sinusitis Otitis Media Viral Syndrome cp Pneumonia Other meningitis. 17:16 Data reviewed: vital signs, nurses notes, radiologic studies, plain films, and as a cp result, I will discharge patient. 17:16 Test interpretation: by ED physician or midlevel provider: plain radiologic studies, cp chest xray negative for infiltrates. Counseling: I had a detailed discussion with the patient and/or guardian regarding: the historical points, exam findings, and any diagnostic results supporting the discharge/admit diagnosis, radiology results, to return to the emergency department if symptoms worsen or persist or if there are any questions or concerns that arise at home. Response to treatment: the patient's symptoms have mildly improved after treatment, and as a result, I will discharge patient. 09/23 16:13 Order name: XRAY Chest Pa And Lat (2 Views); Complete Time: 17:36 cp 09/23 17:36 Interpretation: Report reviewed. cp Administered Medications: 16:20 Drug: Albuterol 2.5 mg Route: Inhalation; bp 16:20 Drug: Ibuprofen 800 mg Route: PO; bp 17:19 Follow up: Response: No adverse reaction bp 17:41 Drug: TORadol 30 mg Route: IM; Site: left gluteus; bp 17:41 Follow up: Response: Pain is decreased bp Disposition: 09/23/19 17:17 Discharged to Home. Impression: Acute bronchitis, unspecified. - Condition is Stable. - Discharge Instructions: Acute Bronchitis, Adult. - Prescriptions for Albuterol Sulfate 90 mcg/actuation - inhale 1-2 puff by INHALATION route every 4-6 hours; 1 Inhaler. Guaifenesin AC 10- 100 mg/5 mL Oral Liquid - take 10 milliliters by ORAL route every 6 hours As needed; 180 milliliter. - Medication Reconciliation Form, Thank You Letter, Antibiotic Education, Prescription Opioid Use form. - Follow up: Private Physician; When: 2 - 3 days; Reason: Worsening of condition. - Problem is new. - Symptoms have improved. Addendum: 09/26/2019 06:41 Co-signature as Attending Physician, Matheus Olvera MD I agree with the assessment and k dr plan of care. PA/REVENUE AUDIT CLERK's history reviewed, patient interviewed, and examined. Signatures: Dispatcher [employer] EDMS Matheus Olvera MD MD [facility] Crys Pretty RN RN ss John Jimenez PA PA cp Denys Rogers, RN RN bp Corrections: (The following items were deleted from the chart) 09/23 17:42 17:17 09/23/2019 17:17 Discharged to Home. Impression: Acute bronchitis, unspecified. bp Condition is Stable. Forms are Medication Reconciliation Form, Thank You Letter, Antibiotic Education, Prescription Opioid Use. Follow up: Private Physician; When: 2 - 3 days; Reason: Worsening of condition. Problem is new. Symptoms have improved. cp
[2019-09-23] MEDS ORDERED: KETOROLAC 30 MG/ML INJ ONE (17:39)
[2019-09-23 18:33] VITALS: BP 147/85; TEMP 97.5; O2SAT 98
== END 2019-09-23 17:42 | disposition home or self-care (01) ==
LOC: ER 15:32
DX: J20.9 Acute bronchitis, unspecified (principal); I10 Essential (primary) hypertension; Z88.5 Allergy status to narcotic agent
CPT/HCPCS: 71046; 96372; 99284

== ENCOUNTER 2019-10-12 18:14 | Emergency (ER) | payer OTHER ==
--- OUTSIDE RECORDS SUMMARY | 2019-10-12 18:16 | XMS REPORT ---
:1955 Author Organization eClinicalWorks Care Team Providers Name Role Phone [place] Provider Role Unavailable Allergies, Adverse Reactions, Alerts Substance Reaction Event Type Antonito Info Not Available Drug Allergy Problems Problem Type Condition Code Onset Dates Condition Status Assessment Primary osteoarthritis of right M17.11 Active knee Problem Primary osteoarthritis of right M17.11 Active knee Assessment Pain in joint of right knee M25.561 Active Medications Medication Code Code Instructions Start End Status Dosage System Date Date Acetaminophen-Codeine [facility] 11699268784 300-30 MG Oral Active (Schedule #3 III Drug) (Prior Auth: Rx Ref#:[id number]) HydrOXYzine HCl [facility] [address]-17 Active not defined Gabapentin [facility] [address]-17 Active not defined Omeprazole [facility] [address]-42 Active not defined Amlodipine Besylate [facility] 89997006798 5 MG Oral Active (Prior Auth: Rx Ref#:[id number]) Clarithromycin [facility] [address]-01 Active not defined Amoxicillin [facility] [address]-10 Active not defined MethylPREDNISolone [facility] [address]-95 Active not defined Cephalexin [facility] [address]-30 Active not defined Meloxicam [facility] [address]-36 Active not defined Lisinopril ND 36151469398 40 MG Oral Active (Prior Auth: Rx Ref#:[id number]) Flucelvax [facility] [address]-08 Active not Quadrivalent defined Results No Known Results Summary Purpose eClinicalWorks Submission
--- NOTE | 2019-10-12 20:20 | RAD REPORT ---
EXAM DESCRIPTION: RAD - Chest Pa And Lat (2 Views) - 10/12/2019 8:14 pm CLINICAL HISTORY: COUGH COMPARISON: Chest Pa And Lat (2 Views) dated 09/23/2019 TECHNIQUE: Frontal and lateral views of the chest were obtained. FINDINGS: The lungs are clear. Lung markings are similar to comparison. Mediastinal and hilar regio ns also similar to comparison. Heart size is normal and central vasculature is within normal limits. No pleural effusion or pneumothorax seen. No acute bony finding noted. No aortic abnormality. IMPRESSION: No acute cardiopulmonary process. No significant change from comparison.
--- NOTE | 2019-10-12 20:31 | ER ---
Nurse's Notes [facility] Name: Anaid Martinez Age: 64 yrs Sex: Female : 1955 Arrival Date: 10/12/2019 Time: 18:16 Bed 20 Private MD: Diagnosis: Cough Presentation: 10/12 19:15 Presenting complaint: Patient states: Cough and congestion x 1 month, dizziness, iw general body weakness and reports dry throat. Came here on the 24 of September for the same reason, but the symptoms has gotten worse. Denies fever, N/V. Transition of care: patient was not received from another setting of care. Onset of symptoms was October 12, 2019. Risk Assessment: Do you want to hurt yourself or someone else? Patient reports no desire to harm self or others. Initial Sepsis Screen: Does the patient meet any 2 criteria? No. Patient's initial sepsis screen is negative. Does the patient have a suspected source of infection? No. Patient's initial sepsis screen is negative. 19:15 Method Of Arrival: Ambulatory 19:15 Care prior to arrival: None. iw 19:15 Acuity: KATHY 3 iw Historical: - Allergies: 19:19 Hydrocodone-Acetaminophen; iw - Home Meds: 19:19 lisinopril Oral [Active]; iw - PMHx: 19:19 Arthritis; borderline diabetic; Hypertension; iw - PSHx: 19:19 None; iw - Immunization history:: Adult Immunizations up to date, Flu vaccine is up to date. - Social history:: Smoking status: Patient denies any tobacco usage or history of. - Ebola Screening: : Patient negative for fever greater than or equal to 101.5 degrees Fahrenheit, and additional compatible Ebola Virus Disease symptoms Patient denies exposure to infectious person Patient denies travel to an Ebola-affected area in the 21 days before illness onset No symptoms or risks identified at this time. Screenin:15 Abuse screen: Denies threats or abuse. Nutritional screening: No deficits noted. ea Tuberculosis screening: No symptoms or risk factors identified. Fall Risk None identified. Assessment: 20:15 General: Appears uncomfortable, Behavior is calm, cooperative, appropriate for age. ea Pain: Denies pain. Neuro: Level of Consciousness is awake, alert, obeys commands, Oriented to person, place, time, situation. Cardiovascular: Patient's skin is warm and dry. Respiratory: Airway is patent Respiratory effort is even, unlabored, Respiratory pattern is regular, symmetrical. Derm: Skin is pink, warm \T\ dry. 20:46 Reassessment: Patient and/or family updated on plan of care and expected duration. Pain ea level reassessed. Patient is alert, oriented x 3, equal unlabored respirations, skin warm/dry/pink. Discharge instruction given to patient, verbalized the understanding of instruction. Pt left ED ambulatory tolerating well. Vital Signs: 19:19 BP 143 / 87; Pulse 72; Resp 16 S; Temp 98(O); Pulse Ox 95% on R/A; Weight 99.79 kg (R); iw Height 5 ft. (152.40 cm) (R); 20:48 BP 132 / 68; Pulse 76; Resp 18; Temp 98; Pulse Ox 100% ; ea 19:19 Body Mass Index 42.97 (99.79 kg, 152.40 cm) iw ED Course: 18:16 Patient arrived in ED. mr 19:18 Triage completed. iw 19:19 Arm band placed on right wrist. iw 19:47 Darrin Robles PA is PHCP. jr8 19:47 Tate Drummond MD is Attending Physician. jr8 19:53 Delilah Ewing RN is Primary Nurse. ea 20:15 XRAY Chest Pa And Lat (2 Views) In Process Unspecified. EDMS 20:15 Patient has correct armband on for positive identification. Bed in low position. Call ea light in reach. 20:30 Marquis Meyer MD is Referral Physician. jr8 20:48 No provider procedures requiring assistance completed. Patient did not have IV access ea during this emergency room visit. Administered Medications: No medications were administered Outcome: 20:30 Discharge ordered by . jr8 20:48 Discharged to home ambulatory. ea 20:48 Condition: stable 20:48 Discharge instructions given to patient, Instructed on discharge instructions, follow up and referral plans. medication usage, Demonstrated understanding of instructions, follow-up care, medications, Prescriptions given X 2. 20:49 Patient left the ED. ea Signatures: Dis[facility] Mark mr Jayne Hedrick RN RN Darrin Robles PA PA jr8 Ewing, Delilah, RN RN ea Corrections: (The following items were deleted from the chart) 19: Acuity: KATHY 4 iw iw 19:15 Acuity: KATHY 4 iw iw
--- NOTE | 2019-10-12 20:31 | EDPHYS ---
Physician Documentation [facility] Name: Anaid Martinez Age: 64 yrs Sex: Female : 1955 Arrival Date: 10/12/2019 Time: 18:16 Bed 20 Private MD: ED Physician Tate Drummond HPI: 10/12 20:26 This 64 yrs old Female presents to ER via Ambulatory with complaints of Cough, jr8 Congestion. 20:26 The patient or guardian reports cough, that is intermittent, described as moderate, jr8 with no sputum. Onset: The symptoms/episode began/occurred gradually, 3 week(s) ago. Severity of symptoms: At their worst the symptoms were moderate, in the emergency department the symptoms are unchanged. Modifying factors: The symptoms are alleviated by nothing, the symptoms are aggravated by nothing. Associated signs and symptoms: The patient has no apparent associated signs or symptoms. The patient has not experienced similar symptoms in the past. The patient has not recently seen a physician. Patient stated that she was seen by PCP and was given steroids and Abx along with breathing treatments. Seen and also given cough medicine. Stated that she has taken everything but continues to cough. Denies any other symptoms at this time . Historical: - Allergies: 19:19 Hydrocodone-Acetaminophen; iw - Home Meds: 19:19 lisinopril Oral [Active]; iw - PMHx: 19:19 Arthritis; borderline diabetic; Hypertension; iw - PSHx: 19:19 None; iw - Immunization history:: Adult Immunizations up to date, Flu vaccine is up to date. - Social history:: Smoking status: Patient denies any tobacco usage or history of. - Ebola Screening: : Patient negative for fever greater than or equal to 101.5 degrees Fahrenheit, and additional compatible Ebola Virus Disease symptoms Patient denies exposure to infectious person Patient denies travel to an Ebola-affected area in the 21 days before illness onset No symptoms or risks identified at this time. ROS: 20:26 Eyes: Negative for injury, pain, redness, and discharge, ENT: Negative for injury, jr8 pain, and discharge, Neck: Negative for injury, pain, and swelling, Cardiovascular: Negative for chest pain, palpitations, and edema, Abdomen/GI: Negative for abdominal pain, nausea, vomiting, diarrhea, and constipation, Back: Negative for injury and pain, MS/Extremity: Negative for injury and deformity, Skin: Negative for injury, rash, and discoloration, Neuro: Negative for headache, weakness, numbness, tingling, and seizure. 20:26 Respiratory: Positive for cough, Negative for dyspnea on exertion, shortness of breath, sputum production, wheezing. Exam: 20:26 Eyes: Pupils equal round and reactive to light, extra-ocular motions intact. Lids and jr8 lashes normal. Conjunctiva and sclera are non-icteric and not injected. Cornea within normal limits. Periorbital areas with no swelling, redness, or edema. ENT: Nares patent. No nasal discharge, no septal abnormalities noted. Tympanic membranes are normal and external auditory canals are clear. Oropharynx with no redness, swelling, or masses, exudates, or evidence of obstruction, uvula midline. Mucous membranes moist. Neck: Trachea midline, no thyromegaly or masses palpated, and no cervical lymphadenopathy. Supple, full range of motion without nuchal rigidity, or vertebral point tenderness. No Meningismus. Cardiovascular: Regular rate and rhythm with a normal S1 and S2. No gallops, murmurs, or rubs. Normal PMI, no JVD. No pulse deficits. Respiratory: Lungs have equal breath sounds bilaterally, clear to auscultation and percussion. No rales, rhonchi or wheezes noted. No increased work of breathing, no retractions or nasal flaring. Abdomen/GI: Soft, non-tender, with normal bowel sounds. No distension or tympany. No guarding or rebound. No evidence of tenderness throughout. Back: No spinal tenderness. No costovertebral tenderness. Full range of motion. Skin: Warm, dry with normal turgor. Normal color with no rashes, no lesions, and no evidence of cellulitis. MS/ Extremity: Pulses equal, no cyanosis. Neurovascular intact. Full, normal range of motion. Neuro: Awake and alert, GCS 15, oriented to person, place, time, and situation. Cranial nerves II-XII grossly intact. Motor strength 5/5 in all extremities. Sensory grossly intact. Cerebellar exam normal. Normal gait. Vital Signs: 19:19 BP 143 / 87; Pulse 72; Resp 16 S; Temp 98(O); Pulse Ox 95% on R/A; Weight 99.79 kg (R); iw Height 5 ft. (152.40 cm) (R); 20:48 BP 132 / 68; Pulse 76; Resp 18; Temp 98; Pulse Ox 100% ; ea 19:19 Body Mass Index 42.97 (99.79 kg, 152.40 cm) iw MDM: 19:53 Patient medically screened. jr8 20:26 Data reviewed: vital signs, nurses notes, radiologic studies, plain films. Data jr8 interpreted: Pulse oximetry: on room air is 95 %. Interpretation: normal. 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 20:28 ED course: Discussed with patient that there were no adventitious breath sounds jr8 auscultated at this time and that her CXR is without acute findings. Recommended pulmonary f/u at this time if she feels that she is not getting better. Explained to her that she can have cough after bronchitis or pneumonia that persists for a few weeks after being cleared up. 10/12 19:21 Order name: Flu; Complete Time: 19:53 iw 10/12 19:21 Order name: Strep; Complete Time: 19:53 10/12 19:51 Order name: Throat Culture EDOH 10/12 20:02 Order name: XRAY Chest Pa And Lat (2 Views); Complete Time: 20:28 jr8 Administered Medications: No medications were administered Disposition: 10/13 08:09 Co-signature as Attending Physician, Tate Drummond MD I agree with the assessment and tw4 plan of care. Disposition: 10/12/19 20:30 Discharged to Home. Impression: Cough. - Condition is Stable. - Discharge Instructions: Cough, Adult. - Prescriptions for Prednisone 20 mg Oral Tablet - take 1 tablet by ORAL route once daily for 5 days; 5 tablet. - Medication Reconciliation Form, Thank You Letter, Antibiotic Education, Prescription Opioid Use, Family Work Release, Work release form form. - Follow up: Marquis Meyer MD; When: 2 - 3 days; Reason: Recheck today's complaints, Continuance of care, Re-evaluation by your physician. - Problem is new. - Symptoms are unchanged. Signatures: Dispatcher [employer] Jayne Anderson RN RN iw Roszak, Josh, PA PA jr8 Delilah Ewing RN RN ea Wadley, Terrence, MD MD tw4 Corrections: (The following items were deleted from the chart) 10/12 20:49 20:30 10/12/2019 20:30 Discharged to Home. Impression: Cough. Condition is Stable. ea Forms are Medication Reconciliation Form, Thank You Letter, Antibiotic Education, Prescription Opioid Use. Follow up: Marquis Meyer; When: 2 - 3 days; Reason: Recheck today's complaints, Continuance of care, Re-evaluation by your physician. Problem is new. Symptoms are unchanged. jr8
[2019-10-13 03:17] VITALS: TEMP 98
[2019-10-13 03:19] VITALS: BP 132/68; O2SAT 100
== END 2019-10-12 20:49 | disposition home or self-care (01) ==
LOC: ER 18:14
DX: R05 Cough (principal); I10 Essential (primary) hypertension; Z88.5 Allergy status to narcotic agent
CPT/HCPCS: 71046; 87070; 87081; 87804; 99283

== ENCOUNTER 2019-11-06 10:18 | Emergency (ER) | payer OTHER ==
--- OUTSIDE RECORDS SUMMARY | 2019-11-06 10:21 | XMS REPORT | Summary of Care ---
:1955 Author Organization [facility] Address [address] [place] [id number] Care Team Providers Name Role Phone TroyEsdrasia Primary Care Provider Reason for Referral Radiology Services (STAT) Status Reason Specialty Diagnoses / Referred By Referred To Procedures Contact Contact New Request Diagnostic Diagnoses Cough Isamar Scott R, Radiology Procedures XR CHEST 2 VW [employer]LL[employer] [address] [place] [address] Reason for Visit Reason Comments Cough Auth/Cert Status Reason Specialty Diagnoses / Referred By Referred To Procedures Contact Contact Emergency Medicine Diagnoses COUGHING FOR WEEKS [facility] Emergency Dept [address] [place] [address] [place] [address] Encounter Details Date Type Department Care Team Description 10/22/2019 Emergency ADC-Emergency Isamar Scott, Atypical pneumonia ( Primary Dx); 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 Cough, Chronic cough benzonatate 100 mg Take 1 capsule 14 capsule 0 10/22/2019 Active capsuleIndications: by mouth 3 Cough, Chronic cough (three) times daily as needed for Cough. documented as of this encounter (statuses as of 10/22/2019) Active Problems Not on filedocumented as of this encounter (statuses as of 10/22/2019) Social History Tobacco Use Types Packs/Day Years Used Date Never Assessed Sex Assigned at Date Recorded Not on file Job Start Date Occupation Industry Not on file Not on file Not on file Travel History Travel Start Travel End No recent travel history available. 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 Chronic cough NO LIFE-THREATENING FINDINGS ON TODAY'S EXAM. PROCEDURES IN THE ER TODAY: Orders Placed This Encounter Procedures XR CHEST 2 VW MEDICATIONS ADMINISTERED IN THE ER TODAY: Medications guaiFENesin 100 mg/5 mL solution 200 mg (has no administration in time range) ibuprofen (IBU) tablet 800 mg (has no administration in time range) levoFLOXacin (LEVAQUIN) tablet 500 mg (has no administration in time range) YOUR PRESCRIPTIONS AND WATV-GRH-JCFYGIN MEDICATION RECOMMENDATIONS: New Prescriptions BENZONATATE 100 MG CAPSULE Take 1 capsule by mouth 3 (three) times daily as needed for Cough. LEVOFLOXACIN (LEVAQUIN) 500 MG TABLET Take 1 tablet by mouth daily for 4 days. FOLLOW-UP RECOMMENDATIONS: RECOMMEND FOLLOW-UP WITH A PRIMARY CARE PROVIDER OR SPECIALIST IN 2-3 DAYS, ESPECIALLY IF NO IMPROVEMENT IN SYMPTOMS. TO FOLLOW-UP WITHIN THE [facility], TRY THESE OPTIONS (CLINIC APPOINTMENTS AVAILABLE ON [id number] BASIS): 1. SCHEDULE AN APPOINTMENT ONLINE AT [facility] 2. OR CALL THE [facility] AT OR 3. OR CALL YOUR [facility] PHYSICIAN'S OFFICE DIRECTLY IF YOU ARE ALREADY AN ESTABLISHED [facility] PATIENT. OR, YOU MAY FOLLOW-UP WITH A PROVIDER OF YOUR CHOICE, SUCH : 1. A PHYSICIAN OF YOUR CHOICE 2. [facility], . LOCATIONS IN [facility] 3. [facility], [address] [place], [place]; RETURN TO ER FOR WORSENING OF SYMPTOMS. AttachmentsThe following attachments cannot be sent through Care Everywhere.Cough, Chronic, Uncertain Cause (Adult) (Yi)Levofloxacin tablets (Yi)documented in this encounter Plan of Treatment Health Maintenance Due Date Last Done Comments HEPATITIS C (HCV) SCREEN 1955 DTaP,Tdap,and Td Vaccines (1 - 02/14/1968 Tdap) PAP SMEAR 1978 Breast Cancer Screening 1997 (MAMMOGRAM) COLONOSCOPY 2007 Zoster Recombinant Vaccine 2007 (SHINGRIX) (1 of 2) INFLUENZA VACCINE (#1) 2019 PNEUMOCOCCAL 0-64 YEARS COMBINED Aged Out No longer eligible based on SERIES patient's age to complete this topic documented as of this encounter Procedures Procedure Name Priority Date/Time Associated Diagnosis Comments XR CHEST 2 VW STAT 10/22/2019 4:14 PM Cough Results for this CAR RECORD CLERK procedure are in the results section. documented in this encounter Results XR CHEST 2 VW (10/22/2019 4:14 PM CAR RECORD CLERK) Specimen Impressions Performed At 1. No acute cardiopulmonary disease. PACS/VR/DOSE 2. Slightly prominent right hilar shadow probably represents superimposition of the vasculature. This can be evaluated with CT scan of the chest on nonemergent basis Narrative Performed At CHEST 2 VIEWS: PACS/VR/DOSE HISTORY:Cough TECHNIQUE:: PA and lateral views of the chest are obtained. FINDINGS: The lungs are clear. The heart size and mediastinal silhouette are normal. Slightly prominent right hilar shadow is noted. No pleural effusion or pneumothorax is seen. Procedure Note Comb, Radiant Results Inft User - 10/22/2019 4:20 PM CAR RECORD CLERK CHEST 2 VIEWS: HISTORY:Cough TECHNIQUE:: PA and lateral views of the chest are obtained. FINDINGS: The lungs are clear. The heart size and mediastinal silhouette are normal. Slightly prominent right hilar shadow is noted. No pleural effusion or pneumothorax is seen. IMPRESSION 1. No acute cardiopulmonary disease. 2. Slightly prominent right hilar shadow probably represents superimposition of the vasculature. This can be evaluated with CT scan of the chest on nonemergent basis Performing Organization Address City/State/Zipcode Phone Number PACS/VR/DOSE documented in this encounter Visit Diagnoses Diagnosis Atypical pneumonia - Primary Pneumonia, organism unspecified Cough Chronic cough Cough documented in this encounter Administered Medications Medication Order MAR Action Action Date Dose Rate Site guaiFENesin 100 mg/5 mL solution Given 10/22/2019 4:56 PM CAR RECORD CLERK 200 mg 200 mg 200 mg, Oral, ONCE, 1 dose, 10/22/19 at 1715, [place] ibuprofen (IBU) tablet 800 mg Given 10/22/2019 4:56 PM CAR RECORD CLERK 800 mg 800 mg, Oral, ONCE, 1 dose, 10/22/19 at 1715, [place] levoFLOXacin (LEVAQUIN) tablet 500 mg Given 10/22/2019 5:01 PM CAR RECORD CLERK 500 mg 500 mg, Oral, ONCE, 1 dose, 10/22/19 at 1800, [place], Reason for Anti-Infective: Documented Infection, Documented Infection Site: Respiratory, Duration of Therapy: Other (see Comments) documented in this encounter Insurance Payer Benefit Plan / Subscriber ID Effective Dates Phone Address Type Group HIM [id number] 2018-Present PPO [id number] ACTED RACTED documented as of this encounter
--- OUTSIDE RECORDS SUMMARY | 2019-11-06 10:21 | XMS REPORT ---
:1955 Author Organization [facility] Address [address] [place] [address] Dr. Martinez [address] [place] [address] Care Team Providers Name Role Phone Unavailable Unavailable Unavailable Problems This patient has no known problems. Allergies, Adverse Reactions, Alerts This patient has no known allergies or adverse reactions. Medications This patient has no known medications.
--- OUTSIDE RECORDS SUMMARY | 2019-11-06 10:21 | XMS REPORT ---
:1955 Author Organization eClinicalWorks Care Team Providers Name Role Phone Mu [place] Provider Role Unavailable Allergies, Adverse Reactions, Alerts Substance Reaction Event Type [place] Info Not Available Drug Allergy Problems Problem Type Condition Code Onset Dates Condition Status Assessment Primary osteoarthritis of right M17.11 Active knee Problem Primary osteoarthritis of right M17.11 Active knee Assessment Pain in joint of right knee M25.561 Active Medications Medication Code Code Instructions Start End Status Dosage System Date Date Acetaminophen-Codeine [facility] 37089398059 300-30 MG Oral Active (Schedule #3 III Drug) (Prior Auth: Rx Ref#:[id number]) HydrOXYzine HCl [facility] [address]-49 Active not defined Gabapentin [facility] [address]-76 Active not defined Omeprazole [facility] [address]-75 Active not defined Amlodipine Besylate [facility] 18220205427 5 MG Oral Active (Prior Auth: Rx Ref#:[id number]) Clarithromycin [facility] [address]-71 Active not defined Amoxicillin [facility] [address]-36 Active not defined MethylPREDNISolone [facility] [address]-58 Active not defined Cephalexin [facility] [address]-17 Active not defined Meloxicam [facility] [address]-49 Active not defined Lisinopril ND 65312113619 40 MG Oral Active (Prior Auth: Rx Ref#:[id number]) Flucelvax [facility] [address]-72 Active not Quadrivalent defined Results No Known Results Summary Purpose eClinicalWorks Submission
--- OUTSIDE RECORDS SUMMARY | 2019-11-06 10:21 | XMS REPORT | Summary of Care ---
:1955 Author Organization [facility] - Health Address [address] [place] [address] Care Team Providers Name Role Phone TroyMelanie Primary Care Provider Encounter Details Date Type Department Care Team Description 10/22/2019 Orders Only [facility] Doctor Unassigned, No [address] [facility] [place] [address] [address] [place] [address] Allergies Not on Filedocumented as of this encounter (statuses as of 10/22/2019) Medications Not on filedocumented as of this encounter [...] of this encounter Last Filed Vital Signs Not on filedocumented in this encounter Plan of Treatment Health [...] Procedure Name Priority Date/Time Associated Diagnosis Comments CONSENT/REFUSAL FOR Routine 10/22/2019 3:09 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
[2019-11-06 10:54] LABS: Absolute Lymphocytes (CBC) 1.8 K/uL (0.7-4.9); Hematocrit 38.5 % (36.0-45.0); Lymphocytes % 33.3 % (15.3-44.8)
[2019-11-06 11:08] LABS: Albumin 3.4 g/dL (3.4-5.0); Bilirubin Total 0.5 mg/dL (0.2-1.0); Protein, Total 6.8 g/dL (6.4-8.2)
[2019-11-06] MEDS ORDERED: TETANUS & DIPHTHERIA TOX,ADULT 0.5 ML VIAL ONE (11:08)
--- NOTE | 2019-11-06 11:33 | ER ---
Nurse's Notes [facility] Name: Anaid Martinez Age: 64 yrs Sex: Female : 1955 Arrival Date: 11/06/2019 Time: 10:21 Bed 20 Private MD: Gabe Bates Diagnosis: Cutaneous abscess of left foot Presentation: 11/06 10:24 Presenting complaint: Patient states: "I noticed pain when I put my shoes on Thursday, it aj1 bothered me all day, and I noticed it was still painful, I looked and it looks like an ant bit me but bigger, so my burned a needle and popped it, and he said that pus came out, but my whole leg is red now". Transition of care: patient was not received from another setting of care. Onset of symptoms was October 2019. Risk Assessment: Do you want to hurt yourself or someone else? Patient reports no desire to harm self or others. Initial Sepsis Screen: Does the patient meet any 2 criteria? HR > 90 bpm. No. Patient's initial sepsis screen is negative. Does the patient have a suspected source of infection? Yes: Skin breakdown/wound. Care prior to arrival: None. 10:24 Method Of Arrival: Ambulatory aj1 10:24 Acuity: KATHY 3 aj1 Triage Assessment: 10:26 General: Appears in no apparent distress. comfortable, Behavior is calm, cooperative, aj1 appropriate for age. Pain: Pain currently is 7 out of 10 on a pain scale. Neuro: Level of Consciousness is awake, alert, obeys commands. Cardiovascular: Patient's skin is warm and dry. Respiratory: Airway is patent Respiratory effort is even, unlabored, Respiratory pattern is regular, symmetrical. Historical: - Allergies: 10:26 Hydrocodone-Acetaminophen; aj1 - Home Meds: 10:26 "blood pressure medicine" [Active]; aj1 - PMHx: 10:26 Arthritis; borderline diabetic; Hypertension; aj1 - Immunization history:: Flu vaccine is up to date. - Coronavirus screen:: The patient has NOT traveled to [place] in the past 14 days. - Social history:: Smoking status: Patient/guardian denies using tobacco. - Ebola Screening: : Patient denies travel to an Ebola-affected area in the 21 days before illness onset. Screenin:00 Abuse screen: Denies threats or abuse. Nutritional screening: No deficits noted. ae4 Tuberculosis screening: No symptoms or risk factors identified. Fall Risk None identified. Assessment: 10:30 General: Appears in no apparent distress. comfortable, obese, Behavior is calm, ae4 cooperative. Pain: Complains of pain in lateral aspect of left calf. Neuro: Level of Consciousness is awake, alert, obeys commands, Oriented to person, place, time, situation, Appropriate for age. Cardiovascular: Heart tones S1 S2 present Patient's skin is warm and dry. Respiratory: Airway is patent Respiratory effort is even, unlabored, Respiratory pattern is regular, symmetrical, Breath sounds are clear bilaterally. GI: Abdomen is round non-distended, obese, Bowel sounds present X 4 quads. Abd is soft and non tender X 4 quads. : No signs and/or symptoms were reported regarding the genitourinary system. EENT: No signs and/or symptoms were reported regarding the EENT system. Derm: Wound noted lateral side of left foot Other: Small, round blister like lesion to later foot, dark purplish in color, small area of surrounding redness. Musculoskeletal: No signs and/or symptoms reported regarding the musculoskeletal system. Vital Signs: 10:26 BP 151 / 92; Pulse 83; Resp 18; Temp 97.7; Pulse Ox 96% on R/A; Weight 102.06 kg (R); aj1 Height 4 ft. 11 in. (149.86 cm) (R); Pain 7/10; 10:26 Body Mass Index 45.44 (102.06 kg, 149.86 cm) aj1 ED Course: 10:21 Patient arrived in ED. rg4 10:22 Gabe Bates MD is Private Physician. rg4 10:25 Sage Skelton NP is PHCP. pm1 10:25 John Mehta MD is Attending Physician. pm1 10:25 Triage completed. aj1 10:26 Arm band placed on Patient placed in an exam room. aj1 10:29 Russell Ha, BRYANNA is Primary Nurse. ae4 10:30 Patient has correct armband on for positive identification. Bed in low position. Call ae4 light in reach. Side rails up X 1. Pulse ox on. NIBP on. Warm blanket given. 10:49 Inserted saline lock: 22 gauge in right antecubital area, using aseptic technique. jb1 10:50 Initial lab(s) drawn, by me, sent to lab. jb1 12:00 No provider procedures requiring assistance completed. IV discontinued, intact, ae4 bleeding controlled, No redness/swelling at site. Pressure dressing applied. Administered Medications: 11:14 Drug: Tetanus-Diphtheria Toxoid Adult 0.5 ml {[employer]ric[employer] Internship: [employer]. Exp: ae4 08/19/2021. Lot #: [id number]. } Route: IM; Site: right deltoid; 12:07 Follow up: Response: No adverse reaction ae4 12:06 Drug: Tylenol #3 (300 mg-30 mg) 2 tabs Route: PO; ae4 12:06 Follow up: Response: Medication administered at discharge. ae4 Outcome: 11:33 Discharge ordered by MD. pm1 12:07 Patient left the ED. ae4 12:07 Discharged to home ambulatory, with significant other. ae4 12:07 Condition: stable 12:07 Discharge instructions given to patient, significant other, Instructed on discharge instructions, follow up and referral plans. Demonstrated understanding of instructions, Prescriptions given X 2. Signatures: Levon Herrera jb1 Mary Branham, RN RN aj1 Sage Skelton, FREDDY RESOURCE MANAGEMENT SPECIALIST pm1 Swathi Leon4 Russell Ha, RN RN ae4
--- NOTE | 2019-11-06 11:34 | EDPHYS ---
Physician Documentation [facility] Name: Anaid Martinez Age: 64 yrs Sex: Female : 1955 Arrival Date: 11/06/2019 Time: 10:21 Bed 20 Private MD: Gabe Bates ED Physician John Mehta HPI: 11/06 11:08 This 64 yrs old Female presents to ER via Ambulatory with complaints of pm1 Abscess. 11:08 The patient presents with an abscess of the lateral side of left foot, Possible insect pm1 bite. Description: The affected area is approximately 0.5 cm(s), Raised and her lanced it with a needle and pus and blood drained out. Onset: The symptoms/episode began/occurred 2 day(s) ago. Possible cause(s): Possible insect sting. Associated signs and symptoms: Pertinent negatives: fever. Modifying factors: the symptoms are alleviated by Lancing, the symptoms are aggravated by touching. 11:08 Severity of symptoms: in the emergency department the symptoms are actually worse, pm1 Feels that it got worse after popping the abscess. The patient has not experienced similar symptoms in the past. The patient has not recently seen a physician. Historical: - Allergies: 10:26 Hydrocodone-Acetaminophen; aj1 - Home Meds: 10:26 "blood pressure medicine" [Active]; aj1 - PMHx: 10:26 Arthritis; borderline diabetic; Hypertension; aj1 - Immunization history:: Flu vaccine is up to date. - Coronavirus screen:: The patient has NOT traveled to [place] in the past 14 days. - Social history:: Smoking status: Patient/guardian denies using tobacco. - Ebola Screening: : Patient denies travel to an Ebola-affected area in the 21 days before illness onset. ROS: 11:08 Constitutional: Negative for fever, chills, and weight loss, Cardiovascular: Negative pm1 for chest pain, palpitations, and edema, Respiratory: Negative for shortness of breath, cough, wheezing, and pleuritic chest pain, Abdomen/GI: Negative for abdominal pain, nausea, vomiting, diarrhea, and constipation, Back: Negative for injury and pain. 11:08 Neuro: Negative for headache, weakness, numbness, tingling, and seizure. 11:08 MS/extremity: Positive for pain, of the lateral side of left foot, Negative for paresthesias, tingling. 11:08 Skin: Positive for abscess, of the lateral side of left foot, Negative for swelling. Exam: 11:08 Constitutional: This is a well developed, well nourished patient who is awake, alert, pm1 and in no acute distress. Head/Face: Normocephalic, atraumatic. Neck: Trachea midline, no thyromegaly or masses palpated, and no cervical lymphadenopathy. Supple, full range of motion without nuchal rigidity, or vertebral point tenderness. No Meningismus. Chest/axilla: Normal chest wall appearance and motion. Nontender with no deformity. No lesions are appreciated. Cardiovascular: Regular rate and rhythm with a normal S1 and S2. No gallops, murmurs, or rubs. Normal PMI, no JVD. No pulse deficits. Respiratory: Lungs have equal breath sounds bilaterally, clear to auscultation and percussion. No rales, rhonchi or wheezes noted. No increased work of breathing, no retractions or nasal flaring. Abdomen/GI: Soft, non-tender, with normal bowel sounds. No distension or tympany. No guarding or rebound. No evidence of tenderness throughout. Back: No spinal tenderness. No costovertebral tenderness. Full range of motion. 11:08 Skin: Appearance: normal except for affected area, lesion(s), probable pustule(s) noted, that was lanced by . No drainage or bleeding present from lesion. No surrounding cellulitis. 11:08 Neuro: Orientation: is normal, Motor: moves all fours, Gait: is steady, at a normal pace, without difficulty. Vital Signs: 10:26 BP 151 / 92; Pulse 83; Resp 18; Temp 97.7; Pulse Ox 96% on R/A; Weight 102.06 kg (R); aj1 Height 4 ft. 11 in. (149.86 cm) (R); Pain 7/10; 10:26 Body Mass Index 45.44 (102.06 kg, 149.86 cm) aj1 MDM: 10:31 Patient medically screened. pm1 11:22 Data reviewed: vital signs. Data interpreted: Pulse oximetry: on room air is 96 %. pm1 Interpretation: normal. Counseling: I had a detailed discussion with the patient and/or guardian regarding: the historical points, exam findings, and any diagnostic results supporting the discharge/admit diagnosis, lab results, the need for outpatient follow up, to return to the emergency department if symptoms worsen or persist or if there are any questions or concerns that arise at home. 11/06 10:37 Order name: CBC with Diff pm1 11/06 10:37 Order name: CMP pm1 11/06 10:56 Order name: CBC with Automated Diff; Complete Time: 11:02 EDNV 11/06 11:10 Order name: Comprehensive Metabolic Panel; Complete Time: 11:15 EDNV 11/06 10:37 Order name: IV Saline Lock; Complete Time: 10:50 pm1 Administered Medications: 11:14 Drug: Tetanus-Diphtheria Toxoid Adult 0.5 ml {[employer]: [employer]. Exp: ae4 08/19/2021. Lot #: [id number]. } Route: IM; Site: right deltoid; 12:07 Follow up: Response: No adverse reaction ae4 12:06 Drug: Tylenol #3 (300 mg-30 mg) 2 tabs Route: PO; ae4 12:06 Follow up: Response: Medication administered at discharge. ae4 Disposition: 11/07 08:29 Co-signature as Attending Physician, John Mehta MD I agree with the assessment and xuan plan of care. Disposition: 11/06/19 11:33 Discharged to Home. Impression: Cutaneous abscess of left foot. - Condition is Stable. - Discharge Instructions: Skin Abscess. - Prescriptions for Bactroban 2 % Topical Ointment - Apply to affected area 1 application by TOPICAL route every 12 hours; 30 gram. Bactrim DS 800- 160 mg Oral Tablet - take 1 tablet by ORAL route every 12 hours for 10 days; 20 tablet. Tylenol- Codeine #3 300-30 mg Oral Tablet - take 2 tablets by ORAL route every 6 hours As needed; 20 tablet. - Medication Reconciliation Form, Thank You Letter, Antibiotic Education, Prescription Opioid Use form. - Follow up: Emergency Department; When: As needed; Reason: Worsening of condition. Follow up: Private Physician; When: 2 - 3 days; Reason: Recheck today's complaints, Continuance of care, Re-evaluation by your physician. - Problem is new. - Symptoms have improved. Signatures: Dispatcher MedHo Mary Foley RN RN aj1 John Mehta MD MD cha Marinas, Patrick, TRIPE FINISHER TRIPE FINISHER pm1 Russell Ha, BRYANNA RN ae4 Corrections: (The following items were deleted from the chart) 11/06 12:07 11:33 11/06/2019 11:33 Discharged to Home. Impression: Cutaneous abscess of left foot. ae4 Condition is Stable. Forms are Medication Reconciliation Form, Thank You Letter, Antibiotic Education, Prescription Opioid Use. Follow up: Emergency Department; When: As needed; Reason: Worsening of condition. Follow up: Private Physician; When: 2 - 3 days; Reason: Recheck today's complaints, Continuance of care, Re-evaluation by your physician. Problem is new. Symptoms have improved. pm1
[2019-11-06] MEDS ORDERED: CODEINE 30MG/APAP 300MG TAB ONE (12:04)
== END 2019-11-06 12:07 | disposition home or self-care (01) ==
LOC: ER 10:18
DX: L02.612 Cutaneous abscess of left foot (principal); I10 Essential (primary) hypertension; Z23 Encounter for immunization; Z88.5 Allergy status to narcotic agent
CPT/HCPCS: 36415; 80053; 85025; 90471; 90714; 99284

== ENCOUNTER 2020-03-22 19:44 | Emergency (ER) | payer OTHER ==
[2020-03-22] MEDS ORDERED: FLUORESCEIN SODIUM 1 MG/WRAP ONE (21:31)
[2020-03-22] MEDS ORDERED: TETRACAINE HCL 0.5% 4ML OPTH ONE (21:31)
[2020-03-22] MEDS ORDERED: TOBRAMYCIN SULF 0.3% OPTH OINT ONE (21:32)
--- OUTSIDE RECORDS SUMMARY | 2020-03-22 21:43 | XMS REPORT | Continuity of Care Document ---
:1955 Author Organization [facility] t Address [address] [place] [address] Care Team Providers Name Role Phone Unavailable Unavailable Unavailable Problems Condition Condition Condition Status Onset Resolution Last Treating Co mments Source Name Details Category Date Date Treatment Clinician Date Primary Primary Problem Active [facility] osteoarthr osteoarthr Mariah kes - [facility] right knee right knee [facility] Pain in Pain in Diagnosis Active [facility] - right knee right knee [facility] Allergies, Adverse Reactions, Alerts Allergy Allergy Status Severity Reaction(s) Onset Inactive Treating Comm ents Source Name Type Date Date Clinician [place] Adverse Active Info Not [facility] Reaction Available [facility] Medications Ordered Filled Start Stop Current Ordering Indication Dosage Frequency Signature Comments Components Source Medication Medication Date Date Medication? Clinician (SIG) Name Name Ibuprofen Ibuprofen Yes Mu [address] [facility] 5-07 [place] PRN [facility] 00 [facility] Amlodipine Amlodipine Yes Mu (Prior [facility] Besylate Besylate [place] Auth: Rx Ami es - Ref#:[id number] [facility] l [facility] HydrOXYzine HydrOXYzine Yes Mu not [facility] HCl HCl [place] defined [facility] Gabapentin Gabapentin Yes Mu not [facility] [place] defined [facility] Clarithromy Clarithromy Yes Mu not [facility] justina justina [place] defined [facility] Amoxicillin Amoxicillin Yes Mu not [facility] [place] defined [facility] MethylPREDN MethylPREDN Yes Mu not [facility] ISolone ISolone [place] defined [facility] Flucelvax Flucelvax Yes Mu not [facility] Quadrivalen Quadrivalen [place] defined [facility] Omeprazole Omeprazole Yes Mu not [facility] [place] defined [facility] Cephalexin Cephalexin Yes Mu not [facility] [place] defined [facility] Losartan Losartan Yes Mu TAKE [address] [facility] [address] [facility] Potassium Potassium [place] TABLET BY [facility] - MOUTH [facility] EVERY DAY l Outpati ent Clinics Meloxicam Meloxicam Yes Mu not [facility] [place] defined [facility] Diclofenac Diclofenac Yes Mu TAKE [address] [facility] Sodium Sodium [place] TABLET BY [facility] MOUTH [facility] TWICE A l DAY Outpati ent Clinics Sulfamethox Sulfamethox Yes Mu TAKE [address] [facility] azole-Trime azole-Trime [place] TABLET BY [facility] - thoprim thoprim MOUTH [facility] EVERY 12 l HOURS FOR Outpati 10 DAYS ent Clinics Mupirocin Mupirocin Yes Mu APPLY TO [facility] [place] AFFECTED [facility] - AREA TWICE [facility] A DAY FOR l 10 DAYS [facility] Procedures This patient has no known procedures. Encounters Start End Encounter Admission Attending Care Care Encounter Source Date/Time Date/Time Type Type Clinicians Facility Department ID 2020-02-02 2020-02-02 [facility] [id number] [facility] 14:[facility] 14[facility]45[facility] 2020-01-31 2020-01-31 [facility] [id number] [facility] 15:06:00 15:06:00 [facility] 2020-01-26 2020-01-26 [facility] [id number] [facility] 15:15:00 15:15:00 [facility] 2020-01-18 2020-01-18 [facility] [id number] [facility] 14:31:00 14:31:00 [facility] 2020-01-16 2020-01-16 [facility] [id number] [facility] 15:30:00 15:30:00 [facility] 2020-01-12 2020-01-12 [facility] [id number] [facility] [address] 11:16:00 11:16:00 [facility] 2019-12-21 2019-12-21 [facility] [id number] [facility] 13:30:00 13:30:00 [facility] 2019-12-09 2019-12-09 [facility] [id number] [facility] 10:41:00 10:41:00 [facility] 2019-07-11 2019-07-11 [facility] [id number] [facility] 15:30:00 15:30:00 [facility] 2019-04-05 2019-04-05 [facility] [id number] [address] 11:00:00 11:00:00 [facility] 2019-03-29 2019-03-29 [facility] [id number] 11:00:00 11:00:00 [facility] 2019-03-22 2019-03-22 [facility] [id number] 10:30:00 10:30:00 t [facility] 2018-06-07 2018-06-07 [facility] [id number] [facility] 14:00:00 14:00:00 t [facility] Results This patient has no known results.
--- OUTSIDE RECORDS SUMMARY | 2020-03-22 21:43 | XMS REPORT ---
:1955 Author Organization [employer] Care Team Providers Name Role Phone [place] Provider Role Unavailable Allergies, Adverse Reactions, Alerts Substance Reaction Event Type [place] Info Not Available Drug Allergy Problems Problem Type Condition Code Onset Dates Condition Statu s Assessment Primary osteoarthritis of right M17.11 Active knee Problem Primary osteoarthritis of right M17.11 Active knee Assessment Pain in joint of right knee M25.561 Active Medications Medication Code Code Instructions Start End Status Dosage System Date Date Gabapentin [facility] [address]-11 Active not defined Omeprazole [facility] 48758271965 Active not defined Mupirocin [facility] 03219421286 2 % External Active APPLY TO AFFECTED AREA TWICE A DAY FOR 10 DAYS Sulfamethoxazole-Tri [facility] 25346937140 800-160 MG Acti ve TAKE 1 methoprim Oral TABLET BY MOUTH EVERY 12 HOURS FOR 10 DAYS Amoxicillin [facility] [address]-99 Active not defined HydrOXYzine HCl [facility] [address]-87 Active no t defined MethylPREDNISolone [facility] [address]-61 Active not defined Clarithromycin [facility] [address]-82 Active not defined Cephalexin [facility] [address]-87 Active not defined Ibuprofen [facility] 28025812154 600 MG Orally January 25, Active 1 PO 2019 PRN Diclofenac Sodium [facility] 78748482672 75 MG Oral Active TAKE 1 TABLET BY MOUTH TWICE A DAY Losartan Potassium [facility] 66121165037 100 MG Oral Activ e TAKE 1 TABLET BY MOUTH EVERY DAY Flucelvax [facility] [address]-53 Active not Quadrivalent defined Amlodipine Besylate [facility] 57634212774 5 MG Oral Active (Prior Auth: Rx Ref#:[id number]) Meloxicam [facility] [address]-87 Active not defined Results No Known Results Summary Purpose [employer]ClinicalWorks Submission
--- OUTSIDE RECORDS SUMMARY | 2020-03-22 21:43 | XMS REPORT ---
:1955 Author Organization [employer] Care Team Providers Name Role Phone [place] Provider Role Unavailable Allergies, Adverse Reactions, Alerts Substance Reaction Event Type [place] Info Not Available Drug Allergy Problems Problem Type Condition Code Onset Dates Condition Statu s Assessment Primary osteoarthritis of right M17.11 Active knee Problem Primary osteoarthritis of right M17.11 Active knee Assessment Pain in joint of right knee M25.561 Active Medications Medication Code Code Instructions Start End Status Dosage System Date Date Flucelvax [facility] [address]-70 Active not Quadrivalent defined HydrOXYzine HCl [facility] [address]-40 Active no t defined Omeprazole [facility] 49952368611 Active not defined Gabapentin [facility] [address]-42 Active not defined Lisinopril [facility] 15897845693 40 MG Oral Active (Prior Auth: Rx Ref#:[id number]) Clarithromycin [facility] [address]-98 Active not defined Amoxicillin [facility] [address]-80 Active not defined MethylPREDNISolone [facility] [address]-22 Active not defined Cephalexin [facility] [address]-69 Active not defined Meloxicam [facility] [address]-62 Active not defined Amlodipine Besylate [facility] 86138891692 5 MG Oral Active (Prior Auth: Rx Ref#:[id number]) Acetaminophen-Codeine [facility] 79227938527 300-30 MG Oral Active (Schedule #3 III Drug) (Prior Auth: Rx Ref#:[id number]) Results No Known Results Summary Purpose [employer]Works Submission
--- OUTSIDE RECORDS SUMMARY | 2020-03-22 21:43 | XMS REPORT ---
:1955 Author Organization [employer] Care Team Providers Name Role Phone [place] Provider Role Unavailable Allergies No Known Allergies Problems Problem Type Condition Code Onset Dates Condition Statu s Problem Primary osteoarthritis of right knee M17.11 Active Medications No Known Medications Results No Known Results Summary Purpose [employer] Submission
--- OUTSIDE RECORDS SUMMARY | 2020-03-22 21:43 | XMS REPORT ---
:1955 Author Organization eClinicalWorks Care Team Providers Name Role Phone Mu Monaco Provider Role Unavailable Allergies, Adverse Reactions, Alerts Substance Reaction Event Type [place] Info Not Available Drug Allergy Problems Problem Type Condition Code Onset Dates Condition Statu s Assessment Primary osteoarthritis of right M17.11 Active knee Problem Primary osteoarthritis of right M17.11 Active knee Assessment Pain in joint of right knee M25.561 Active Medications Medication Code Code Instructions Start End Status Dosage System Date Date Losartan Potassium [facility] 94315956618 100 MG Oral Activ e TAKE 1 TABLET BY MOUTH EVERY DAY Meloxicam [facility] [address]-97 Active not defined Diclofenac Sodium [facility] 82045740488 75 MG Oral Active TAKE 1 TABLET BY MOUTH TWICE A DAY Cephalexin [facility] [address]-37 Active not defined Flucelvax [facility] [address]-65 Active not Quadrivalent defined Lisinopril [facility] 95073204823 40 MG Oral Active (Prior Auth: Rx Ref#:[id number]) Omeprazole [facility] 03979898400 Active not defined Acetaminophen-Codein [facility] 41963689305 300-30 MG Oral Active (Schedule e #3 III Drug) (Prior Auth: Rx Ref#:[id number]) Naproxen [facility] 03438572478 500 MG Oral Active TAKE 1 TABLET BY MOUTH EVERY 12 HOURS NEEDED Sulfamethoxazole-Tri [facility] 89995151822 800-160 MG Acti ve TAKE 1 methoprim Oral TABLET BY MOUTH EVERY 12 HOURS FOR 10 DAYS Mupirocin ND 29643187420 2 % External Active APPLY TO AFFECTED AREA TWICE A DAY FOR 10 DAYS HydrOXYzine HCl [facility] [address]-17 Active no t defined Amlodipine Besylate ND 31940010056 5 MG Oral Active (Prior Auth: Rx Ref#:[id number]) Gabapentin [facility] [address]-42 Active not defined Cyclobenzaprine HCl [facility] 22672640806 10 MG Oral Activ e TAKE 1 TABLET BY MOUTH THREE TIMES DAILY NEEDED Amoxicillin [facility] [address]-38 Active not defined Clarithromycin [facility] [address]-95 Active not defined MethylPREDNISolone [facility] [address]-80 Active not defined Results No Known Results Summary Purpose eClinicalWorks Submission
--- OUTSIDE RECORDS SUMMARY | 2020-03-22 21:43 | XMS REPORT ---
:1955 Author Organization eClinicalWorks Care Team Providers Name Role Phone Mu Monaco Provider Role Unavailable Allergies, Adverse Reactions, Alerts Substance Reaction Event Type [place] Info Not Available Drug Allergy Problems Problem Type Condition Code Onset Dates Condition Statu s Assessment Primary osteoarthritis of right M17.11 Active knee Problem Primary osteoarthritis of right M17.11 Active knee Assessment Pain in joint of right knee M25.561 Active Medications Medication Code Code Instructions Start End Status Dosage System Date Date Ibuprofen [facility] 25391070058 600 MG Orally Active 1 PO TUD PRN Sulfamethoxazole-Tri [facility] 62383639144 800-160 MG Acti ve TAKE 1 methoprim Oral TABLET BY MOUTH EVERY 12 HOURS FOR 10 DAYS HydrOXYzine HCl [facility] [address]-00 Active no t defined Clarithromycin [facility] [address]-07 Active not defined Meloxicam [facility] [address]-91 Active not defined MethylPREDNISolone [facility] [address]-36 Active not defined Amlodipine Besylate [facility] 35277756582 5 MG Oral Active (Prior Auth: Rx Ref#:[id number]) Mupirocin [facility] 91120586666 2 % External Active APPLY TO AFFECTED AREA TWICE A DAY FOR 10 DAYS Flucelvax [facility] [address]-41 Active not Quadrivalent defined Losartan Potassium [facility] 49709492598 100 MG Oral Activ e TAKE 1 TABLET BY MOUTH EVERY DAY Amoxicillin [facility] [address]-58 Active not defined Gabapentin [facility] [address]-86 Active not defined Omeprazole [facility] 49905778266 Active not defined Cephalexin [facility] [address]-21 Active not defined Diclofenac Sodium [facility] 99985352434 75 MG Oral Active TAKE 1 TABLET BY MOUTH TWICE A DAY Results No Known Results Summary Purpose eClinicalWorks Submission
--- NOTE | 2020-03-22 21:44 | EDPHYS ---
Physician Documentation [facility] Name: Anaid Martinez Age: 65 yrs Sex: Female : 1955 Arrival Date: 03/22/2020 Time: 19:49 Bed 12 Private MD: ED Physician Tate Drummond HPI: 03/23 00:47 This 65 yrs old Female presents to ER via Ambulatory with complaints of Eye snw Problem, Eye Pain. 00:47 The patient is experiencing pain, The patient sustained None. to the right eye, caused snw by an unknown mechanism. Onset: The symptoms/episode began/occurred suddenly, today. Duration: the symptoms are continuous. Associated signs and symptoms: Pertinent positives: None. Patient does not utilize any form of vision correction. Severity of symptoms: At their worst the symptoms were mild moderate. The patient has not experienced similar symptoms in the past. It is unknown whether or not the patient has recently seen a physician. Historical: - Allergies: 03/22 20:15 Hydrocodone-Acetaminophen; mg2 - Home Meds: 20:15 amlodipine oral [Active]; mg2 - PMHx: 20:15 Arthritis; borderline diabetic; Hypertension; mg2 - PSHx: 20:15 None; mg2 - Immunization history:: Flu vaccine is up to date. - Social history:: Smoking status: Patient denies any tobacco usage or history of. Patient/guardian denies using alcohol, street drugs, IV drugs. ROS: 03/23 00:44 Constitutional: Negative for fever, chills, and weight loss, ENT: Negative for injury, snw pain, and discharge, Neck: Negative for injury, pain, and swelling, Cardiovascular: Negative for chest pain, palpitations, and edema, Respiratory: Negative for shortness of breath, cough, wheezing, and pleuritic chest pain, Abdomen/GI: Negative for abdominal pain, nausea, vomiting, diarrhea, and constipation, Back: Negative for injury and pain, : Negative for injury, bleeding, discharge, and swelling, MS/Extremity: Negative for injury and deformity, Skin: Negative for injury, rash, and discoloration, Neuro: Negative for headache, weakness, numbness, tingling, and seizure, Psych: Negative for depression, anxiety, suicide ideation, homicidal ideation, and hallucinations. Eyes: Positive for pain, swelling, of the left outer canthus. Exam: 00:39 Constitutional: This is a well developed, well nourished patient who is awake, alert, snw and in no acute distress. Head/Face: Normocephalic, atraumatic. Eyes: Pupils equal round and reactive to light, extra-ocular motions intact. Lids and lashes normal. Conjunctiva and sclera are non-icteric and not injected. Cornea within normal limits. Periorbital areas with no swelling, redness, or edema. lateral corner of eye extrudes a bit on pt everting lid ENT: Nares patent. No nasal discharge, no septal abnormalities noted. Tympanic membranes are normal and external auditory canals are clear. Oropharynx with no redness, swelling, or masses, exudates, or evidence of obstruction, uvula midline. Mucous membranes moist. Neck: Trachea midline, no thyromegaly or masses palpated, and no cervical lymphadenopathy. Supple, full range of motion without nuchal rigidity, or vertebral point tenderness. No Meningismus. Chest/axilla: Normal chest wall appearance and motion. Nontender with no deformity. No lesions are appreciated. Cardiovascular: Regular rate and rhythm with a normal S1 and S2. No gallops, murmurs, or rubs. Normal PMI, no JVD. No pulse deficits. Respiratory: Lungs have equal breath sounds bilaterally, clear to auscultation and percussion. No rales, rhonchi or wheezes noted. No increased work of breathing, no retractions or nasal flaring. Abdomen/GI: Soft, non-tender, with normal bowel sounds. No distension or tympany. No guarding or rebound. No evidence of tenderness throughout. Back: No spinal tenderness. No costovertebral tenderness. Full range of motion. Skin: Warm, dry with normal turgor. Normal color with no rashes, no lesions, and no evidence of cellulitis. MS/ Extremity: Pulses equal, no cyanosis. Neurovascular intact. Full, normal range of motion. Neuro: Awake and alert, GCS 15, oriented to person, place, time, and situation. Cranial nerves II-XII grossly intact. Motor strength 5/5 in all extremities. Sensory grossly intact. Cerebellar exam normal. Normal gait. Vital Signs: 03/22 20:13 Pulse 93; Resp 18; Temp 98.6; Pulse Ox 100% on R/A; Weight 102.06 kg; Height 5 ft. 0 mg2 in. (152.40 cm); 21:45 BP 135 / 78; Pulse 86; Resp 18; Temp 98.5(O); Pulse Ox 100% ; mg2 20:13 Body Mass Index 43.94 (102.06 kg, 152.40 cm) mg2 Visual Acuity: 21:30 Left Eye Visual acuity 20/40, ; Right Eye Visual acuity 20/30, ; Both Eyes Visual fc acuity 20/25; Without Lenses; MDM: 21:44 Patient medically screened. snw 03/23 00:30 Data reviewed: vital signs, nurses notes. Data interpreted: Pulse oximetry: on room air snw is 100 %. Interpretation: normal. Counseling: I had a detailed discussion with the patient and/or guardian regarding: the historical points, exam findings, and any diagnostic results supporting the discharge/admit diagnosis, the need for outpatient follow up, to return to the emergency department if symptoms worsen or persist or if there are any questions or concerns that arise at home. Special discussion: Based on the history and exam findings, there is no indication for further emergent testing or inpatient evaluation. I discussed with the patient/guardian the need to see the opthamologist for further evaluation of the symptoms. ED course: pt was quite distraught that there was not a diagnosis to be made in the ED. She showed pictures of lower eyelid edema that has suddenly begun over the past several months only under the right eyelid. I suggested maybe it was dependent edema from sleeping position. Pt became frustrated and told me she had seen 4 previous providers and no one could diagnose the problem. Pt may have mucocele at lateral corner of left eye, no vision changes, corneal problems, or tearing. Encouraged cool compresses for discomfort and f/u. Pt left the ED mad that no diagnosis was made. 03/22 21:16 Order name: Visual Acuity; Complete Time: 21:29 snw 03/22 21:16 Order name: Eye Tray; Complete Time: 21:29 snw 03/22 21:16 Order name: Fluoresene Opth strip; Complete Time: 21:32 snw Administered Medications: 03/22 21:43 Not Given (no tx necessary): ERYTHromycin Ointment 1 application Ophthalmic once snw 21:43 Not Given (no indication): Tetracaine Drops 0.5 % 1 drops Ophthalmic once snw 21:43 Not Given (no corneal abrasion): Fluorescein Strip 1 strip Ophthalmic once snw Disposition: 03/23 05:58 Co-signature as Attending Physician, Tate Drummond MD I agree with the assessment and tw4 plan of care. Disposition: 03/22/20 21:44 Discharged to Home. Impression: Person with feared health complaint in whom no diagnosis is made. - Condition is Stable. - Discharge Instructions: How to Use Eye Drops and Eye Ointments, Dry Eye, Cryotherapy. - Medication Reconciliation Form, Thank You Letter, Antibiotic Education, Prescription Opioid Use form. - Follow up: Emergency Department; When: As needed; Reason: Worsening of condition. Follow up: Private Physician; When: 2 - 3 days; Reason: Recheck today's complaints, Continuance of care, Re-evaluation by your physician. Signatures: Fariba Chan, DWIGHT-C GLASS ROLLING MACHINE OPERATOR-Csnw Sophia Martinez RN RN Tate Drummond MD MD tw4 Tevin Jose RN RN mg2 Corrections: (The following items were deleted from the chart) 03/22 21:52 21:44 03/22/2020 21:44 Discharged to Home. Impression: Person with feared health mg2 complaint in whom no diagnosis is made. Condition is Stable. Forms are Medication Reconciliation Form, Thank You Letter, Antibiotic Education, Prescription Opioid Use. Follow up: Emergency Department; When: As needed; Reason: Worsening of condition. Follow up: Private Physician; When: 2 - 3 days; Reason: Recheck today's complaints, Continuance of care, Re-evaluation by your physician. snw
--- NOTE | 2020-03-22 21:44 | ER ---
Nurse's Notes [facility] Name: Anaid Martinez Age: 65 yrs Sex: Female : 1955 Arrival Date: 03/22/2020 Time: 19:49 Bed 12 Private MD: Diagnosis: Person with feared health complaint in whom no diagnosis is made Presentation: 03/22 20:13 Chief complaint: Patient states: i have irritation in my left eye. i felt there is mg2 something swollen inside my left upper eyelid today. Coronavirus screen: Proceed with normal triage. Patient denies a cough. Patient denies shortness of breath or difficulty breathing. Patient denies measured and/or subjective temperature greater than 100.4F prior to today's visit. Patient denies travel on a cruise ship or to a country the [facility] currently lists as an affected area. Patient denies contact with known and/or suspected case of COVID-19. Ebola Screen: No symptoms or risks identified at this time. Mechanism of Injury: No Mechanism of Injury. The patient denies any loss of vision. Initial Sepsis Screen: Does the patient meet any 2 criteria? No. Patient's initial sepsis screen is negative. Does the patient have a suspected source of infection? No. Patient's initial sepsis screen is negative. Risk Assessment: Do you want to hurt yourself or someone else? Patient reports no desire to harm self or others. Onset of symptoms was March 22, 2020. 20:13 Method Of Arrival: Ambulatory mg2 20:13 Acuity: KATHY 4 mg2 Historical: - Allergies: 20:15 Hydrocodone-Acetaminophen; mg2 - Home Meds: 20:15 amlodipine oral [Active]; mg2 - PMHx: 20:15 Arthritis; borderline diabetic; Hypertension; mg2 - PSHx: 20:15 None; mg2 - Immunization history:: Flu vaccine is up to date. - Social history:: Smoking status: Patient denies any tobacco usage or history of. Patient/guardian denies using alcohol, street drugs, IV drugs. Screenin:10 Abuse screen: Denies threats or abuse. Nutritional screening: No deficits noted. fc Tuberculosis screening: No symptoms or risk factors identified. Fall Risk None identified. Assessment: 20:32 General: Appears in no apparent distress. comfortable, Behavior is calm, cooperative. mg2 Pain: Complains of pain in left eye. Neuro: Level of Consciousness is awake, alert, obeys commands, Oriented to person, place, time, situation. Cardiovascular: Capillary refill < 3 seconds Patient's skin is warm and dry. Respiratory: Airway is patent Respiratory effort is even, unlabored, Respiratory pattern is regular, symmetrical. GI: No signs and/or symptoms were reported involving the gastrointestinal system. : No signs and/or symptoms were reported regarding the genitourinary system. EENT: Eyes irrittation and swelling inside the left upper eyelid. Derm: Skin is intact, is healthy with good turgor, Skin is pink, warm \T\ dry. normal. Musculoskeletal: Circulation, motion, and sensation intact. Capillary refill < 3 seconds. 21:15 Reassessment: Patient and/or family updated on plan of care and expected duration. Pain fc level reassessed. Fariba IT INFRASTRUCTURE ENGINEER in to see and examine pt. Vital Signs: 20:13 Pulse 93; Resp 18; Temp 98.6; Pulse Ox 100% on R/A; Weight 102.06 kg; Height 5 ft. 0 mg2 in. (152.40 cm); 21:45 BP 135 / 78; Pulse 86; Resp 18; Temp 98.5(O); Pulse Ox 100% ; mg2 20:13 Body Mass Index 43.94 (102.06 kg, 152.40 cm) mg2 Visual Acuity: 21:30 Left Eye Visual acuity 20/40, ; Right Eye Visual acuity 20/30, ; Both Eyes Visual fc acuity 20/25; Without Lenses; ED Course: 19:49 Patient arrived in ED. bp1 20:15 Triage completed. mg2 20:16 Arm band placed on. mg2 21:10 Patient has correct armband on for positive identification. Bed in low position. Call fc light in reach. 21:15 Fariba Chan FNP-C [facility]. snw 21:15 Tate Drummond MD is Attending Physician. snw 21:32 No provider procedures requiring assistance completed. Patient did not have IV access fc during this emergency room visit. 21:45 Tevin Jose, BRYANNA is Primary Nurse. mg2 Administered Medications: 21:43 Not Given (no tx necessary): ERYTHromycin Ointment 1 application Ophthalmic once snw 21:43 Not Given (no indication): Tetracaine Drops 0.5 % 1 drops Ophthalmic once snw 21:43 Not Given (no corneal abrasion): Fluorescein Strip 1 strip Ophthalmic once snw Outcome: 21:44 Discharge ordered by . snw 21:52 Discharged to home ambulatory. mg2 21:52 Condition: stable 21:52 Discharge instructions given to patient, Instructed on discharge instructions, follow up and referral plans. Demonstrated understanding of instructions, follow-up care. 21:52 Patient left the ED. mg2 Signatures: Fariba Chan, LETTERER-C LETTERER-Csnw Sophia Martinez, RN RN Tevin Jose, RN RN [facility] Lizz Jauregiu
[2020-03-22 22:03] VITALS: TEMP 98.6; O2SAT 100
== END 2020-03-22 21:52 | disposition home or self-care (01) ==
LOC: ER 19:44
DX: H57.12 Ocular pain, left eye (principal); Z71.1 Person with feared health complaint in whom no diagnosis is made
CPT/HCPCS: 99282

== ENCOUNTER 2021-07-17 06:04 | Observation (INO) | payer OTHER ==
[2021-07-04 11:56] LABS: Basophils % 0.6 % (0-1.3); Hematocrit 39.9 % (36.0-45.0); Lymphocytes % 33.6 % (15.3-44.8); MPV 8.1 fL (7.6-11.3); RBC Red Blood Cell Count 4.49 M/uL (3.86-4.86)
[2021-07-04 12:03] LABS: Protime INR 0.99
[2021-07-04 12:09] LABS: BUN Blood Urea Nitrogen 14 mg/dL (7-18); Bicarbonate 28 mmol/L (21-32); Glucose Level 98 mg/dL (74-106); Sodium Level 139 mmol/L (136-145)
--- NOTE | 2021-07-04 12:11 | RAD REPORT ---
EXAM DESCRIPTION: RAD - Chest Pa And Lat (2 Views) - 07/04/2021 11:55 am CLINICAL HISTORY: pre op pending knee replacement COMPARISON: Chest Pa And Lat (2 Views) dated 10/12/2019; Chest Pa And Lat (2 Views) dated 09/23/2019; C HEST SINGLE VIEW dated 05/18/2012 FINDINGS: Lines: None. Lungs: No evidence of edema or pneumonia. Pleural: No significant pleural effusions or pneumothorax. Cardiac: The heart size is within normal limits. Bones: No acute fractures. Other: IMPRESSION: No acute cardiopulmonary disease.
[2021-07-15 15:03] LABS: SARS-COV-2 RT PCR NEGATIVE (NEGATIVE)
[2021-07-17] MEDS: NA CHLORIDE 0.9% 1,000 ML ONE ×2 (06:20→07:01)
[2021-07-17] MEDS ORDERED: CEFAZOLIN/SWI 2gm 2 GM/20 ML SYR ONE (06:46)
[2021-07-17] MEDS ORDERED: CELECOXIB 100 MG CAPSULE ONE (07:03)
[2021-07-17] MEDS ORDERED: ACETAMINOPHEN 500 MG TAB ONE (07:04)
[2021-07-17] MEDS ORDERED: Oxycodone HCl/Acetaminophen 1 TAB TAB ONE (07:04)
[2021-07-17] MEDS ORDERED: TRANEXAMIC ACID 1,000 MG in NA CHLORIDE 0.9% 50 ML IV ONE ×2 (07:17→07:55)
[2021-07-17] MEDS ORDERED: BUPIVACA 0.5%/EPI 0.0005%/PF 30 ML VIAL ONE (07:46)
[2021-07-17] MEDS ORDERED: dexAMETHasone 10 MG/ML VIAL ONE ×2 (07:52→07:53)
[2021-07-17] MEDS ORDERED: FENTANYL CITR 100 MCG/2 ML ONE (07:52)
[2021-07-17] MEDS ORDERED: BUPIVACAINE 0.25% PF 30 ML VIAL ONE (07:52)
[2021-07-17] MEDS ORDERED: LIDOCAINE 1% MPF 5 ML VIAL ONE (07:52)
[2021-07-17] MEDS ORDERED: MIDAZOLAM HCL 2 MG/2 ML INJ ONE ×2 (07:52→11:51)
[2021-07-17] MEDS ORDERED: NS 0.9% VIAL 20 ML ONE (07:52)
[2021-07-17] MEDS ORDERED: KETOROLAC 30 MG/ML INJ ONE (07:53)
[2021-07-17] MEDS ORDERED: propofoL 200 MG/20 ML VIAL IV ONE (07:53)
[2021-07-17] MEDS ORDERED: LIDOCAINE 2% MPF 5 ML VIAL ONE (07:53)
[2021-07-17] MEDS ORDERED: ROCURONIUM 50 MG/5 ML VIAL IV ONE (07:56)
[2021-07-17] MEDS ORDERED: KETAMINE HCL 500 MG/5 ML VIAL ONE (07:56)
[2021-07-17] MEDS ORDERED: HYDROMORPHONE HCL 1 MG/ML INJ ONE ×3 (07:57→11:34)
[2021-07-17] MEDS ORDERED: ONDANSETRON 4 MG/2 ML VIAL ONE (07:59)
[2021-07-17] MEDS ORDERED: NA CHLORIDE 0.9% 1,000 ML ONE ×2 (09:05→11:47)
[2021-07-17] MEDS ORDERED: NEOSTIGMINE 1 MG/ML -5 ML ONE (10:40)
[2021-07-17] MEDS ORDERED: GLYCOPYRROLATE 0.2 MG/ML SYR ONE (10:40)
--- NOTE | 2021-07-17 10:41 | P.BOP ---
Preoperative diagnosis: right knee osteoarthritis Postoperative diagnosis: same Primary procedure: right total knee arthroplasty Other procedure(s): none Communications Superintendent: NONE,NONE Estimated blood loss: 20 cc Specimen: right knee bone remnants Findings: see dictation Anesthesia: General Complications: None Implants: [employer] Wilmer Persona, 5 CR femur, D tibia w/ stem, 32 patella, 10 CR poly Fluids & blood products: per anesthesia record; TT: 88 mins @ 300 mmHg Transferred to: Recovery Room Condition: Good
[2021-07-17] MEDS ORDERED: DOCUSATE NA 100 MG CAP PO PRN (10:43)
[2021-07-17] MEDS ORDERED: ONDANSETRON 4 MG/2 ML VIAL IV PRN (10:43)
--- NOTE | 2021-07-17 12:27 | RAD REPORT ---
EXAM DESCRIPTION: RAD - Knee Right 2 View - 07/17/2021 11:18 am CLINICAL HISTORY: Post Op COMPARISON: No comparisons FINDINGS: Status post right total knee arthroplasty. No evidence of immediate hardware complications . Alignment is anatomic. . IMPRESSION: Status post right total knee arthroplasty without evidence of immediate hardware complic ations. No fracture.
[2021-07-17 12:33] VITALS: BMI 43.0
[2021-07-17] MEDS: MORPHINE 2 MG/ML SYR IV PRN (12:40)
[2021-07-17] MEDS: METFORMIN HCL 500 MG TAB PO SCH (16:19)
[2021-07-17] MEDS: HYDROCODONE/APAP 7.5/325 MG TAB PO PRN ×2 (16:19→20:25)
[2021-07-17] MEDS: CEFAZOLIN/SWI 2gm 2 GM/20 ML SYR IV SCH (16:26)
[2021-07-17] MEDS ORDERED: CEFAZOLIN 2 GM in NA CHLORIDE 0.9% 100 ML IVPB SCH (17:00)
[2021-07-17] MEDS: TRAMADOL HCL 50 MG TAB PO PRN (17:58)
[2021-07-17] MEDS ORDERED: MELATONIN 5 MG TABLET PO PRN (19:29)
[2021-07-18] MEDS: CEFAZOLIN/SWI 2gm 2 GM/20 ML SYR IV SCH ×2 (00:52→09:00)
[2021-07-18] MEDS: HYDROCODONE/APAP 7.5/325 MG TAB PO PRN ×2 (03:33→09:47)
[2021-07-18 04:56] LABS: Hematocrit 32.3 % (36.0-45.0)
[2021-07-18] MEDS: MORPHINE 2 MG/ML SYR IV PRN (05:41)
[2021-07-18] MEDS ORDERED: ENOXAPARIN 30 MG/0.3 ML SQ SCH (06:00)
[2021-07-18] MEDS ORDERED: CELECOXIB 100 MG CAPSULE PO SCH (09:00)
[2021-07-18] MEDS ORDERED: ROSUVASTATIN 10 MG TAB PO SCH (09:00)
[2021-07-18] MEDS ORDERED: AMLODIPINE 10 MG TAB PO SCH (09:00)
[2021-07-18] MEDS: METFORMIN HCL 500 MG TAB PO SCH (09:46)
--- NOTE | 2021-07-18 11:51 | P.DS ---
Admission Date: 07/17/21 Discharge Date: 07/18/21 Disposition: DC HOME/HOME HEALTH CARE Discharge Condition: GOOD Reason for Admission: s/p right TKA, HTN, DM Consultations: none Procedures: right TKA on 07/17/2021 Brief History of Present Illness: Anaid is a 66 yo female with PMHx of DM, HTN admitted postoperatively after right TKA on 07/17/2021 Hospital Course: Patient admitted after right TKA in stable condition. Physical therapy was consulted and patient mobilized safely. She was discharged on 07/18/2021 in stable condition with HHPT setup. She will followup in 2 weeks for staple removal. Vital Signs/Physical Exam: Temp Pulse Resp BP Pulse Ox 97.3 F 51 16 120/57 L 94 07/18/21 04:00 07/18/21 04:00 07/18/21 04:00 07/18/21 04:00 07/18/21 04:00 Laboratory Data at Discharge: WBC 6.10 K/uL (4.3-10.9) 07/04/21 11:40 Hgb 10.6 g/dL (12.0-15.0) L 07/18/21 04:23 Hct 32.3 % (36.0-45.0) L 07/18/21 04:23 Plt Count 234 K/uL (152-406) 07/04/21 11:40 PT 11.4 SECONDS (9.5-12.5) 07/04/21 11:40 INR 0.99 07/04/21 11:40 APTT 35.9 SECONDS (24.3-36.9) 07/04/21 11:40 Sodium 139 mmol/L (136-145) 07/04/21 11:40 Potassium 4.0 mmol/L (3.5-5.1) 07/04/21 11:40 BUN 14 mg/dL (7-18) 07/04/21 11:40 Creatinine 0.60 mg/dL (0.55-1.3) 07/04/21 11:40 Glucose 98 mg/dL (74-106) 07/04/21 11:40 Home Medications: Amlodipine Besylate 10 mg PO DAILY 07/04/21 Metformin HCl [Glucophage*] 500 mg PO BIDWM 07/04/21 Rosuvastatin [Crestor*] 10 mg PO DAILY 07/04/21 Hydrocodone 7.5/APAP 325 [[place] 7.5/325 mg*] 1 tab PO Q4H PRN tab 07/18/21 Physician Discharge Instructions: keep dressing clean and dry. use MARTA hose for 2 weeks to aid with swelling; begin Xarelto 07/19/21 with breakfast and take one daily Diet: ADA Activity: Weight bearing as tolerated Followup: Mu Monaco MD [ACTIVE - CAN ADMIT] - 1-2 Weeks
[2021-07-18] MEDS: TRAMADOL HCL 50 MG TAB PO PRN (12:29)
[2021-07-18 12:37] VITALS: BP 124/58; TEMP 97.7; O2SAT 94
--- NOTE | 2021-07-18 14:41 | P.OP ---
Preoperative diagnosis: right knee osteoarthritis Postoperative diagnosis: same Primary procedure: right total knee arthroplasty Other procedure(s): none Anesthesia: general LMA Estimated blood loss: 20 cc Specimen: right knee bone remnants Findings: see dictation Operative Technique: Indication For Procedure: Anaid is a 66 year-old female presenting to my clinic with signs, symptoms and x-ray findings consistent with severe right knee osteoarthritis. I discussed with the patient at length risks and benefits associated with operative and nonoperative treatment. She had failed conservative treatment measures and had significant difficulties with ADLs secondary to her pain. We discussed operative treatment and elected to proceed with right total knee arthroplasty. She expressed understanding and elected to proceed with operative treatment. The patient had multiple delays to her surgery date secondary to insurance denials. Her MRI was over 6 months old from her surgery date and I discussed with the patient that the cutting blocks may fit a little differently secondary to any changes in anatomy over the last 6 months. She expressed understanding and wanted to continue with surgery as planned and scheduled using the original MRI and cutting blocks. During the procedure there were significant changes in anatomy and the cutting blocks fit well throughout the case. Description Of Procedure: After informed consent was obtained, the patient was identified in the preoperative holding area. The right lower extremity was marked. The patient was then taken to the PACU where she underwent a right lower extremity adductor canal block performed by Anesthesia. She was then taken to the operating room, transferred to the operating table in supine fashion, and placed under general anesthesia. Her right lower extremity was then prepped and draped in usual sterile fashion. A time-out was initiated. The correct patient and procedure were confirmed and identified. The patient did receive her preoperative prophylactic antibiotics. The right lower extremity was then exsanguinated and tourniquet was inflated to 300 mmHg. Approximately 15 cm longitudinal incision was made centered over the anterior aspect of the right knee. Dissection was then taken to the extensor mechanism and a medial parapatellar arthrotomy was performed. The patella was everted and dislocated laterally and the knee was flexed in the fat pad. Medial lateral meniscus and ACL were all excised exposing the distal femur. The patient had an MRI of her right knee preoperatively for surgical planning and creation of cutting blocks. The cutting block was then placed over the distal femur and pins were then placed. The distal femoral cutting block was then placed over the pins. Knee joint was then used to ensure proper depth cut and the distal femur was then cut. The chamfer cutting guide was then placed over the distal end of the femur. Anterior, posterior cuts as well as anterior and posterior chamfer cuts were then made again confirming proper depth of the cut using an Gene wing. Excess bone remnants were then sent to pathology for further evaluation. Next, attention was taken to the proximal tibia. A tibial jig and tibial cutting block was then placed on proximal aspect of the right tibia and locked into position. Pins were then placed and alignment guide was then used to confirm proper alignment of the cut and then coronal and sagittal planes. Once this was confirmed, the cutting jig was placed over the pins and the proximal tibia was cut. Sizing trays were then selected and size 10 mm spacer was used and there was good overall balance in flexion and extension. Next, the trial implants were then placed using the size 5 standard CR femur and a size D tibia with an 10 mm CR poly. There was overall good range of motion and good stability trial implants were then removed. This improved the overall stability of the knee and components. The wound was then irrigated thoroughly with normal saline and the knee was then injected with 30 cc of 0.5% Marcaine both in the posterior capsule and medial and lateral gutters as well as quadriceps tendon and periosteum. The tibia was then punched. The femur was drilled. The cement was then prepared on the back table. Cement was then placed first on the tibial surface followed by size D tibia. Excess cement was removed with [place] elevators. Size 5 standard CR femur was then placed on the distal femur after cement was placed on the distal femur. Excess cement was then removed and a size 10 mm CR trial poly was then placed. The knee was held in extension as the cement hardened. Undersurface of the patella was prepared debriding osteophytes using rongeurs as well as osteophytes had been debrided off the proximal tibia with rongeurs and osteotomes to aid with the medial tightness. Cement was placed on the undersurface of the patella after it was cut and a size 32 patella was placed. Once the cement was hardened, the knee was ranged, there was good overall stability both in flexion, extension and as well as stability with varus and valgus stresses. Trial poly was then removed and a size 110mm CR poly was then placed and locked into position. The knee was then ranged again. There was good overall range of motion both for flexion and extension with good stability. The wound was then irrigated again thoroughly with normal saline using pulse lavage. Tourniquet was let down. Hemostasis was achieved using Bovie electrocautery. Extensor mechanism was then approximated using a #1 Vicryl both in interrupted and running fashion. The fascia was then approximated using 0 Vicryl. Subcutaneous tissue was approximated with a 2-0 Vicryl. Skin was approximated using doris. Sterile dressings were applied. The patient was awakened and transferred back in stable condition Complications: None Implants: Biomet Wilmer Persona 5 CR femur, D tibia w/ stem, 32 patella, 10 CR poly Fluids & blood products: per anesthesia record; TT: 88 mins @ 300 mmHg Transferred to: Recovery Room Condition: Good
--- OUTSIDE RECORDS SUMMARY | 2021-08-02 15:58 | XMS REPORT | Continuity of Care Document ---
:[address] [facility] t Address [address] [place] [address] Care Team Providers Name Role Phone Everett Bishop Attending Clinician Unavailable Winnie TOWNSEND Attending Clinician Unavailable Winnie OTWNSEND Admitting Clinician Unavailable Payers Payer Name Policy Type Policy Number Effective Date Expiration Date Everett munoz [id number] 2018 00:00:00 TRACTED Problems This patient has no known problems. Allergies, Adverse Reactions, Alerts Allergy Allergy Status Severity Reaction(s) Onset Inactive Treating Comm ents Source Name Type Date Date Clinician HYDROCOD DRUG Active ITCHING 2019- [facility] ONE INGREDI 10-22 ity of 00:00: [address] Era Adverse Active Info Not [facility] Reaction Available [facility] Medications Ordered Filled Start Stop Current Ordering Indication Dosage Frequency Signature Comments Components Source Medication Medication Date Date Medication? Clinician (SIG) Name Name Ibuprofen Ibuprofen Yes Mu [address] [facility]07 [place] PRN [facility] Amlodipine Amlodipine Yes Mu (Prior [facility] Besylate Besylate [place] Auth: Rx Ami es - Ref#:[id number] [facility] HydrOXYzine [...] [facility] Losartan Losartan Yes Mu TAKE [...] [facility] A DAY [facility] l 10 [facility]YS Out[facility] ent Clinics Procedures This patient has no known procedures. Encounters Start End Encounter Admission Attending Care Care Encounter Source Date/Time Date/Time Type Type Clinicians Facility Department ID 2020-11-29 Inpatient [place], [facility] [id number] [facility] 13:00:00 [place] [id number] [facility] 2021-08-01 2021-08-01 [facility] [id number] 2021-07-26 2021-07-26 amb[facility] [id number] [facility] 2021-07-24 2021-07-24 amb[facility] [id number] [facility] 2021-07-22 2021-07-22 Outpatient [facility] [id number] [facility] 2021-07-22 2021-07-22 amb[facility] [id number] [facility] 2021-07-22 2021-07-22 amb[facility] [id number] [facility] 2021-07-09 2021-07-09 Out[facility] [id number] [facility] 2021-07-09 2021-07-09 Out[facility] [id number] [facility] 2021-07-08 2021-07-08 Out[facility] [id number] [facility] 2021-07-08 2021-07-08 Out[facility] [id number] [facility] 2021-05-24 2021-05-24 [facility] [id number] [facility] 2021-05-22 2021-05-22 Out[facility] [id number] [facility] 2021-05-09 2021-05-09 [facility] [id number] [facility] 2021-03-27 2021-03-27 Out[facility] [id number] [facility] 2021-02-26 2021-02-26 Out[facility] [id number] [facility] 2021-02-21 2021-02-21 Out[facility] [id number] [facility] 2021 [facility] [id number] [facility] 2021-02-07 2021-02-07 Out[facility] [id number] [facility] 2021-02-04 2021-02-04 [facility] [id number] [facility] 2021-01-17 2021-01-17 Out[facility] [id number] [facility] 2020-12-24 2020-12-24 Out[facility] [id number] [facility] 2020-11-12 2020-11-12 Out[facility] [id number] [facility] 2020-10-30 2020-10-30 Out[facility] [id number] [facility] 2020-10-17 2020-10-17 Out[facility] [id number] [facility] 2020-08-21 2020-08-21 [facility] [id number] [facility] 2020-07-30 2020-07-30 [facility] [id number] [facility] 2020-06-12 2020-06-12 [facility] [id number] [facility] 2020-06-12 2020-06-12 Outpatient [facility] [id number] [facility] 2020-02-02 2020-02-02 [facility] [id number] [facility] 14[facility]45:00 14:45:00 [facility] 2020-01-31 2020-01-31 [facility] [id number] 15:06:00 15:06:00 [facility] 2020-01-26 2020-01-26 [facility] [id number] 15:15:00 15:15:00 [facility] 2020-01-18 2020-01-18 [facility] [id number] 14:31:00 14:31:00 [facility] 2020-01-16 2020-01-16 [facility] [id number] [facility] 15:30:00 15:30:00 [facility] 2020-01-12 2020-01-12 [facility] [id number] [address] 11:16:00 11:16:00 t [facility] 2019-12-21 2019-12-21 [facility] [id number] 13:30:00 13:30:00 [facility] 2019-12-09 2019-12-09 [facility] [id number] 10:41:00 10:41:00 t [facility] 2019-10-22 2019-10-22 Emergency [facility] ERT [id number] 15:41:04 17:21:00 RYLIEFAITH anselmo [facility] 2019-07-11 2019-07-11 [facility] [id number] [address] 15:30:00 15:30:00 t [facility] 2019-04-05 2019-04-05 [facility] [id number] 11:00:00 11:00:00 t [facility] 2019-03-29 2019-03-29 [facility] [id number] 11:00:00 11:00:00 t [facility] 2019-03-22 2019-03-22 [facility] [id number] 10:30:00 10:30:00 t [facility] [place] [facility] 2018-06-07 2018-06-07 [facility] [id number] 14:00:00 14:00:00 t [facility] [place] [facility] Results This patient has no known results.
== END 2021-07-18 14:00 | disposition home health service (06) ==
LOC: OR 06:04 → 2ND 11:19
PROVIDERS: ADMIT Orthopaedic Surgery Sports Medicine; ATTEND Orthopaedic Surgery Sports Medicine
PROC: 0SRC069 Replacement of Right Knee Joint with Oxidized Zirconium on Polyethylene Synthetic Substitute, Cemented, Open Approach (ICD-10-PCS; principal; 2021-07-17 07:30)
DX: M17.11 Unilateral primary osteoarthritis, right knee (principal); E11.9 Type 2 diabetes mellitus without complications; I10 Essential (primary) hypertension; Z20.822 Contact with and (suspected) exposure to COVID-19; Z88.6 Allergy status to analgesic agent; Z98.84 Bariatric surgery status; Z83.3 Family history of diabetes mellitus; Z80.9 Family history of malignant neoplasm, unspecified
CPT/HCPCS: 93005 ×2; 85025; 80048; 36415 ×2; 85610; 82947 ×4; 88305; 88311; 85730; 85018 ×2; 85014 ×2; 0240U; 71046; 73560; 97110; 97116 ×3; 97139; 97161; 97530 ×2; 94010; 27447; U0003; J2704; J1650; J2250 ×2; J3010; J1100 ×2; J2270 ×2; J1170 ×3; J2710; J0690 ×2; G0378 ×3; J7030 ×3; J2405 ×2; G0379

== ENCOUNTER 2022-08-24 02:09 | Observation (INO) | payer OTHER ==
--- OUTSIDE RECORDS SUMMARY | 2022-08-24 02:30 | XMS REPORT | Continuity of Care Document ---
:[address] [facility] t Address [address] [place] [address] Care Team Providers Name Role Phone ANGELIA HERRERA Primary Care Physician Unavailable Chino Bishop Attending Clinician Unavailable KAHILL RUELAS Attending Clinician Unavailable Kahlil Ruelas MD Attending Clinician Doctor Unassigned, [place] Attending Clinician Unavailable MICHAELA TOWNSEND Attending Clinician Unavailable KAHLIL RUELAS Admitting Clinician Unavailable MICHAELA TOWNSEND Admitting Clinician Unavailable Payers Payer Name Policy Type Policy Number Effective Date Expiration Date [place] BARRIGA/CURTIS [id number] 2022-06-21 MEDICARE 00:00:00 ADVANTAGE Ambetter from [id number] 2021-03-21 2021-09-20 [facility] 00:00:00 00:00:00 [facility] Ambetter from [id number] Common Spi rit [facility] Ambetter from [id number] Common Spi rit [facility] Ambetter from [id number] Common Spi rit [facility] Ambetter from [id number] Common Spi rit [facility] Ambetter from [id number] Common Spi rit [facility] Ambetter from [id number] Common Spi rit [facility] Ambetter from [id number] Common Spi rit [facility] Ambetter from [id number] Common Spi rit [facility] Ambetter from [id number] Common Spi rit [facility] Ambetter from [id number] Common Spi rit [facility] Ambetter from [id number] Common Spi rit [facility] Ambetter from [id number] Common Spi rit [facility] Ambetter from [id number] Common Spi rit [facility] Ambetter from [id number] Common Spi rit [facility] Ambetter from [id number] Common Spi rit [facility] Ambetter from [id number] Common Spi rit [facility] Problems Condition Condition Condition Status Onset Resolution Last Treating Co mments Source Name Details Category Date Date Treatment Clinician Date [id number] Primary Problem Active [facility] right knee [facility] Arthritis Arthritis Problem Active Com thu of right of knee, [facility] knee [facility] [id number] Pre-op Problem Active Common testing [facility] [id number] COVID-19 Problem Active Comm on [facility] [id number] Presence Problem Active Com thu of total [facility] knee - [facility] joint [facility] [id number] Status Problem Active Commo n 105 post total [facility] knee - [facility] No known No known Disease Unive rs active active ity of problems problems [facility] Allergies, Adverse Reactions, Alerts Allergy Allergy Status Severity Reaction(s) Onset Inactive Treating Comm ents Source Name Type Date Date Clinician [place] - Propensi Active Intraven ty to 622 ous adverse 00:00: reaction 00 to drug HYDROCOD DRUG Active ITCHING Univers ONE INGREDI 2 ity of 00:00: [place] 00 Medical Branch Hydrocod Propensi Active Itching Unive rs one ty to 10-22 ity of adverse 00:00: [place] reaction 00 Medical s Branch Hydrocod Propensi Active one ty to 6 adverse 00:00: reaction 00 to drug Social History Social Habit Start Date Stop Date Quantity Comments Source History of Common Spirit - Tobacco Use [facility] Exposure to 2022-07-20 2022-07-30 Not sure [facility] SARS-CoV-2 00:00:00 13:28:00 [place] [facility] Tobacco use and 2022-07-30 2022-07-30 Smokeless tobacco Un iversity of exposure 00:00:00 00:00:00 non-user [facility] Sex Ass[birth year] Universit y of 00:00:00 00:00:00 [facility] Smoking Status Start Date Stop Date Source Tobacco smoking consumption [facility] unknown Branch Never smoked tobacco [facility] Medications Ordered Filled Start Stop Current Ordering Indication Dosage Frequency Signature Comments Components Source Medication Medication Date Date Medication? Clinician (SIG) Name Name amLODIPine 2021-09 Yes 5mg Take 5 mg Un [place] 5 mg tablet 09 by mouth ity of 13:48: in the [place] [address] morning. Medical Branch metFORMIN 2021-09 Yes 500mg Take 500 Uni vers 500 mg 09 mg by ity of tablet 13:48: mouth in [place] [address] the Medical morning. Branch rosuvastati 2021-09 Yes 20mg Take 20 mg Univers n 20 mg 09 by mouth ity of tablet 13:48: at [place] [address] bedtime. Medical Branch amLODIPine 2021-09 Yes 5mg Take 5 mg Un [place] 5 mg tablet 09 by mouth ity of 13:48: in the [place] [address] morning. Medical Branch metFORMIN 2021-09 Yes 500mg Take 500 Uni vers 500 mg 09-29 mg by ity of tablet 13:48: mouth in [place] [address] the Medical morning. Branch rosuvastati 2021-09 Yes 20mg Take 20 mg Univers n 20 mg 09-29 by mouth ity of tablet 13:48: at [place] [address] bedtime. Medical Branch TAKE 1 2021-0 No CAPSULE BY 9-02 MOUTH TWICE 00:00: A DAY FOR 30 DAYS TAKE 1 2021-0 No CAPSULE BY 9-02 MOUTH TWICE 00:00: A DAY FOR 30 DAYS TAKE 1 2021-0 No CAPSULE BY 9-02 MOUTH TWICE 00:00: A DAY FOR 30 DAYS TAKE 1 2022-0 No 5 TABLET 8- DAILY. 00:00: 00 TAKE 1 2022-0 No 5 TABLET 8- DAILY. 00:00: 00 TAKE 1 2022-0 No 5 TABLET 8- DAILY. 00:00: 00 TAKE 1 2-0 No 100 TABLET 7-14 DAILY 00:00: DIRECTED. 00 TAKE 1 2022-0 No 100 TABLET 7-14 DAILY 00:00: DIRECTED. 00 TAKE 1 2-0 No 100 TABLET 7-14 DAILY 00:00: DIRECTED. 00 TAKE 1 2022-0 No 100 TABLET 7-14 DAILY 00:00: DIRECTED. 00 TAKE 1 2022-0 No 5 TABLET 7-07 DAILY. 00:00: 00 TAKE 1 2022-0 No 100 TABLET 7-07 DAILY 00:00: DIRECTED. 00 TAKE 1 2022-0 No 5 TABLET 7-07 DAILY. 00:00: 00 TAKE 1 2022-0 No 100 TABLET 7-07 DAILY 00:00: DIRECTED. 00 TAKE 1 2022-0 No 5 TABLET 7-07 DAILY. 00:00: 00 TAKE 1 2022-0 No 100 TABLET 7-07 DAILY 00:00: DIRECTED. 00 TAKE 1 2022-0 No 5 TABLET 7-07 DAILY. 00:00: 00 TAKE 1 2022-0 No 100 TABLET 7-07 DAILY 00:00: DIRECTED. 00 TAKE 1 2022-0 No 5 TABLET 7-07 DAILY. 00:00: 00 TAKE 1 2022-0 No 100 TABLET 7-07 DAILY 00:00: DIRECTED. 00 lisinopril 2022-0 No 1mg 40 mg 6-30 tablet 00:00: 00 TAKE 1 2022-0 No 5 TABLET 6-30 DAILY. 00:00: 00 lisinopril 2022-0 No 1mg 40 mg 6-30 tablet 00:00: 00 TAKE 1 2022-0 No 5 TABLET 6-30 DAILY. 00:00: 00 lisinopril 2022-0 No 1mg 40 mg 6-30 tablet 00:00: 00 TAKE 1 2022-0 No 5 TABLET 6-30 DAILY. 00:00: 00 lisinopril 2022-0 No 1mg 40 mg 6-30 tablet 00:00: 00 TAKE 1 2022-0 No 5 TABLET 6-30 DAILY. 00:00: 00 lisinopril 2022-0 No 1mg 40 mg 6-30 tablet 00:00: 00 TAKE 1 2022-0 No 5 TABLET 6-30 DAILY. 00:00: 00 trazodone 2022-0 No 1mg 100 mg 6-22 tablet 00:00: 00 Dose 2022-0 No Unknown 6-22 00:00: 00 trazodone 2022-0 No 1mg 100 mg 6-22 tablet 00:00: 00 Dose 2022-0 No Unknown 6-22 00:00: 00 trazodone 2022-0 No 1mg 100 mg 6-22 tablet 00:00: 00 Dose 2022-0 No Unknown 6-22 00:00: 00 trazodone 2022-0 No 1mg 100 mg 6-22 tablet 00:00: 00 Dose 2022-0 No Unknown 6-22 00:00: 00 trazodone 2022-0 No 1mg 100 mg 6-22 tablet 00:00: 00 Dose 2022-0 No Unknown 6-22 00:00: 00 gabapentin 2022-0 No 1mg 300 mg 6-06 capsule 00:00: 00 gabapentin 2022-0 No 1mg 300 mg 6-06 capsule 00:00: 00 gabapentin 2022-0 No 1mg 300 mg 6-06 capsule 00:00: 00 gabapentin 2022-0 No 1mg 300 mg 6-06 capsule 00:00: 00 gabapentin 2022-0 No 1mg 300 mg 6-06 capsule 00:00: 00 metformin 2022-0 No 1mg 500 mg 4-19 tablet 00:00: 00 amlodipine 2022-0 No 1mg 5 mg tablet 4-19 00:00: 00 metformin 2022-0 No 1mg 500 mg 4-19 tablet 00:00: 00 amlodipine 2022-0 No 1mg 5 mg tablet 4-19 00:00: 00 metformin 2022-0 No 1mg 500 mg 4-19 tablet 00:00: 00 amlodipine 2022-0 No 1mg 5 mg tablet 4-19 00:00: 00 metformin 2022-0 No 1mg 500 mg 4-19 tablet 00:00: 00 amlodipine 2022-0 No 1mg 5 mg tablet 4-19 00:00: 00 metformin 2022-0 No 1mg 500 mg 4-19 tablet 00:00: 00 amlodipine 2022-0 No 1mg 5 mg tablet 4-19 00:00: 00 ibuprofen 2022-0 No 1mg 800 mg 3-22 tablet 00:00: 00 Macrobid 2022-0 No 1mg 100 mg 3-22 capsule 00:00: 00 Dose 2022-0 No Unknown 3-22 00:00: 00 Dose 2022-0 No Unknown 3-22 00:00: 00 Dose 2022-0 No Unknown 3-22 00:00: 00 Dose 2022-0 No Unknown 3-22 00:00: 00 Dose 2022-0 No Unknown 3-22 00:00: 00 Dose 2022-0 No Unknown 3-22 00:00: 00 Dose 2022-0 No Unknown 3-22 00:00: 00 Dose 2022-0 No Unknown 3-22 00:00: 00 Dose 2022-0 No Unknown 3-22 00:00: 00 Dose 2022-0 No Unknown 3-22 00:00: 00 Dose 2022-0 No Unknown 3-22 00:00: 00 Dose 2022-0 No Unknown 3-22 00:00: 00 Dose 2022-0 No Unknown 3-22 00:00: 00 Dose 2022-0 No Unknown 3-22 00:00: 00 Dose 2022-0 No Unknown 3-22 00:00: 00 ibuprofen 2022-0 No 1mg 800 mg 3-22 tablet 00:00: 00 Macrobid 2022-0 No 1mg 100 mg 3-22 capsule 00:00: 00 Dose 2022-0 No Unknown 3-22 00:00: 00 Dose 2022-0 No Unknown 3-22 00:00: 00 Dose 2022-0 No Unknown 3-22 00:00: 00 Dose 2022-0 No Unknown 3-22 00:00: 00 Dose 2022-0 No Unknown 3-22 00:00: 00 Dose 2022-0 No Unknown 3-22 00:00: 00 Dose 2022-0 No Unknown 3-22 00:00: 00 Dose 2022-0 No Unknown 3-22 00:00: 00 Dose 2022-0 No Unknown 3-22 00:00: 00 Dose 2022-0 No Unknown 3-22 00:00: 00 Dose 2022-0 No Unknown 3-22 00:00: 00 Dose 2022-0 No Unknown 3-22 00:00: 00 Dose 2-0 No Unknown 3-22 00:00: 00 Dose 2-0 No Unknown 3-22 00:00: 00 Dose 2-0 No Unknown 3-22 00:00: 00 ibuprofen 2022-0 No 1mg 800 mg 3-22 tablet 00:00: 00 Macrobid 2-0 No 1mg 100 mg 3-22 capsule 00:00: 00 Dose 2022-0 No Unknown 3-22 00:00: 00 Dose 2022-0 No Unknown 3-22 00:00: 00 Dose 2-0 No Unknown 3-22 00:00: 00 Dose 2-0 No Unknown 3-22 00:00: 00 Dose 2022-0 No Unknown 3-22 00:00: 00 Dose 2022-0 No Unknown 3-22 00:00: 00 Dose 2022-0 No Unknown 3-22 00:00: 00 Dose 2022-0 No Unknown 3-22 00:00: 00 Dose 2022-0 No Unknown 3-22 00:00: 00 Dose 2022-0 No Unknown 3-22 00:00: 00 Dose 2022-0 No Unknown 3-22 00:00: 00 Dose 2022-0 No Unknown 3-22 00:00: 00 Dose 2022-0 No Unknown 3-22 00:00: 00 Dose 2022-0 No Unknown 3-22 00:00: 00 Dose 2022-0 No Unknown 3-22 00:00: 00 ibuprofen 2022-0 No 1mg 800 mg 3-22 tablet 00:00: 00 Macrobid 2022-0 No 1mg 100 mg 3-22 capsule 00:00: 00 Dose 2022-0 No Unknown 3-22 00:00: 00 Dose 2022-0 No Unknown 3-22 00:00: 00 Dose 2022-0 No Unknown 3-22 00:00: 00 Dose 2022-0 No Unknown 3-22 00:00: 00 Dose 2022-0 No Unknown 3-22 00:00: 00 Dose 2022-0 No Unknown 3-22 00:00: 00 Dose 2022-0 No Unknown 3-22 00:00: 00 Dose 2022-0 No Unknown 3-22 00:00: 00 Dose 2022-0 No Unknown 3-22 00:00: 00 Dose 2022-0 No Unknown 3-22 00:00: 00 ibuprofen 2022-0 No 1mg 800 mg 3-22 tablet 00:00: 00 Macrobid 2022-0 No 1mg 100 mg 3-22 capsule 00:00: 00 Dose 2022-0 No Unknown 3-22 00:00: 00 Dose 2022-0 No Unknown 3-22 00:00: 00 Dose 2022-0 No Unknown 3-22 00:00: 00 Dose 2022-0 No Unknown 3-22 00:00: 00 Dose 2022-0 No Unknown 3-22 00:00: 00 Dose 2022-0 No Unknown 3-22 00:00: 00 Dose 2022-0 No Unknown 3-22 00:00: 00 Dose 2022-0 No Unknown 3-22 00:00: 00 Dose 2022-0 No Unknown 3-22 00:00: 00 Dose 2022-0 No Unknown 3-22 00:00: 00 Dose 2022-0 No Unknown 3-22 00:00: 00 Dose 2022-0 No Unknown 3-22 00:00: 00 Dose 2022-0 No Unknown 3-22 00:00: 00 Dose 2022-0 No Unknown 3-22 00:00: 00 Dose 2022-0 No Unknown 3-22 00:00: 00 Dose 2022-0 No Unknown 3-22 00:00: 00 Dose 2022-0 No Unknown 3-22 00:00: 00 Dose 2022-0 No Unknown 3-22 00:00: 00 Dose 2022-0 No Unknown 3-22 00:00: 00 Dose 2022-0 No Unknown 3-22 00:00: 00 Gabapentin Gabapentin 2022-0 No 1{capsu TID 100 MG 100 MG - le} 00:00: 00 Gabapentin Gabapentin 2022-0 No 1{capsu TID Gabapentin 100 MG 100 MG 10-22 le} 100 MG 00:00: 00 Gabapentin Gabapentin 2022-0 No 1{capsu TID Gabapentin 100 MG 100 MG 2 le} 100 MG 00:00: 00 Gabapentin Gabapentin 2022-0 No 1{capsu TID Gabapentin 100 MG 100 MG 10-22 le} 100 MG 00:00: 00 Gabapentin Gabapentin 2022-0 No 1{capsu TID Gabapentin 100 MG 100 MG 10-22 le} 100 MG 00:00: 00 Gabapentin Gabapentin 2022-0 No 1{capsu TID Gabapentin 100 MG 100 MG 10-22 le} 100 MG 00:00: 00 Gabapentin Gabapentin 2022-0 No 1{capsu TID Gabapentin 100 MG 100 MG 10-22 le} 100 MG 00:00: 00 Gabapentin Gabapentin 2022-0 No 1{capsu TID Gabapentin 100 MG 100 MG 10-22 le} 100 MG 00:00: 00 Gabapentin Gabapentin 2022-0 No 1{capsu TID Gabapentin 100 MG 100 MG 10-22 le} 100 MG 00:00: 00 Gabapentin Gabapentin 2022-0 No 1{capsu TID Gabapentin 100 MG 100 MG 10-22 le} 100 MG 00:00: 00 Gabapentin Gabapentin 2022-0 No 1{capsu TID Gabapentin 100 MG 100 MG 10-22 le} 100 MG 00:00: 00 Gabapentin Gabapentin 2022-0 No 1{capsu TID Gabapentin 100 MG 100 MG 10-22 le} 100 MG 00:00: 00 trazodone 2022-0 No 1mg 100 mg 1-20 tablet 00:00: 00 oxybutynin 2022-0 No 1mg chloride ER 1-20 10 mg 00:00: tablet,exte 00 nded release 24 hr hydroxyzine 2022-0 No 1mg HCl 25 mg 1-20 tablet 00:00: 00 trazodone 2022-0 No 1mg 100 mg 1-20 tablet 00:00: 00 oxybutynin 2022-0 No 1mg chloride ER 1-20 10 mg 00:00: tablet,exte 00 nded release 24 hr hydroxyzine 2022-0 No 1mg HCl 25 mg 1-20 tablet 00:00: 00 trazodone 2022-0 No 1mg 100 mg 1-20 tablet 00:00: 00 oxybutynin 2022-0 No 1mg chloride ER 1-20 10 mg 00:00: tablet,exte 00 nded release 24 hr hydroxyzine 2022-0 No 1mg HCl 25 mg 1-20 tablet 00:00: 00 trazodone 2022-0 No 1mg 100 mg 1-20 tablet 00:00: 00 oxybutynin 2022-0 No 1mg chloride ER 1-20 10 mg 00:00: tablet,exte 00 nded release 24 hr hydroxyzine 2022-0 No 1mg HCl 25 mg 1-20 tablet 00:00: 00 trazodone 2022-0 No 1mg 100 mg 1-20 tablet 00:00: 00 oxybutynin 2022-0 No 1mg chloride ER 1-20 10 mg 00:00: tablet,exte 00 nded release 24 hr hydroxyzine 2-0 No 1mg HCl 25 mg 1-20 tablet 00:00: 00 traMADol traMADol 2-0 No 1{table traMADol HCl 50 MG HCl 50 MG 1-11 t_as_ne HCl 50 MG 00:00: eded} 00 traMADol traMADol 2-0 No 1{table traMADol HCl 50 MG HCl 50 MG 1-11 t_as_ne HCl 50 MG 00:00: eded} 00 traMADol traMADol 2-0 No 1{table traMADol HCl 50 MG HCl 50 MG 1-11 t_as_ne HCl 50 MG 00:00: eded} 00 traMADol traMADol 2-0 No 1{table traMADol HCl 50 MG HCl 50 MG 1-11 t_as_ne HCl 50 MG 00:00: eded} 00 traMADol traMADol 2-0 No 1{table HCl 50 MG HCl 50 MG 1-11 t_as_ne 00:00: eded} 00 traMADol traMADol 2-0 No 1{table traMADol HCl 50 MG HCl 50 MG 1-11 t_as_ne HCl 50 MG 00:00: eded} 00 traMADol traMADol 2-0 No 1{table traMADol HCl 50 MG HCl 50 MG 1-11 t_as_ne HCl 50 MG 00:00: eded} 00 traMADol traMADol 2-0 No 1{table traMADol HCl 50 MG HCl 50 MG 1-11 t_as_ne HCl 50 MG 00:00: eded} 00 traMADol traMADol 2-0 No 1{table traMADol HCl 50 MG HCl 50 MG 1-11 t_as_ne HCl 50 MG 00:00: eded} 00 traMADol traMADol 2-0 No 1{table traMADol HCl 50 MG HCl 50 MG 1-11 t_as_ne HCl 50 MG 00:00: eded} 00 traMADol traMADol 2-0 No 1{table traMADol HCl 50 MG HCl 50 MG 1-11 t_as_ne HCl 50 MG 00:00: eded} 00 traMADol traMADol 2-0 No 1{table traMADol HCl 50 MG HCl 50 MG 1-11 t_as_ne HCl 50 MG 00:00: eded} 00 traMADol traMADol 2-0 No 1{table traMADol HCl 50 MG HCl 50 MG 1-11 t_as_ne HCl 50 MG 00:00: eded} 00 traMADol traMADol 2-0 No 1{table traMADol HCl 50 MG HCl 50 MG 1-11 t_as_ne HCl 50 MG 00:00: eded} 00 traMADol traMADol 2-0 No 1{table traMADol HCl 50 MG HCl 50 MG 1-11 t_as_ne HCl 50 MG 00:00: eded} 00 traMADol traMADol 2-0 No 1{table traMADol HCl 50 MG HCl 50 MG 1-11 t_as_ne HCl 50 MG 00:00: eded} 00 traMADol traMADol 2-0 No 1{table HCl 50 MG HCl 50 MG 1-11 t_as_ne 00:00: eded} 00 Bromfed DM 2020-09 No 10mg/5 2 mg-30 2-07 mL mg-10 mg/5 00:00: mL oral 00 syrup Bromfed DM 2020-09 No 10mg/5 2 mg-30 2-07 mL mg-10 mg/5 00:00: mL oral 00 syrup Bromfed DM 2020-09 No 10mg/5 2 mg-30 2-07 mL mg-10 mg/5 00:00: mL oral 00 syrup Bromfed DM 2021-1 No 10mg/5 2 mg-30 2-07 mL mg-10 mg/5 00:00: mL oral 00 syrup Bromfed DM 1-1 No 10mg/5 2 mg-30 2-07 mL mg-10 mg/5 00:00: mL oral 00 syrup Gabapentin Gabapentin 1-1 No 1{capsu BID Gabapentin 100 MG 100 MG 2-06 le} 100 MG 00:00: 00 Gabapentin Gabapentin 2021-1 No 1{capsu BID Gabapentin 100 MG 100 MG 2-06 le} 100 MG 00:00: 00 Gabapentin Gabapentin 2021-1 No 1{capsu BID Gabapentin 100 MG 100 MG 2-06 le} 100 MG 00:00: 00 Gabapentin Gabapentin 2021-1 No 1{capsu BID Gabapentin 100 MG 100 MG 2-06 le} 100 MG 00:00: 00 Gabapentin Gabapentin 1-1 No 1{capsu BID 100 MG 100 MG 2-06 le} 00:00: 00 Gabapentin Gabapentin 2021-1 No 1{capsu BID Gabapentin 100 MG 100 MG 2-06 le} 100 MG 00:00: 00 Gabapentin Gabapentin 2021-1 No 1{capsu BID Gabapentin 100 MG 100 MG 2-06 le} 100 MG 00:00: 00 Gabapentin Gabapentin 2021-1 No 1{capsu BID Gabapentin 100 MG 100 MG 2-06 le} 100 MG 00:00: 00 Gabapentin Gabapentin 2021-1 No 1{capsu BID Gabapentin 100 MG 100 MG 2-06 le} 100 MG 00:00: 00 Gabapentin Gabapentin 2021-1 No 1{capsu BID Gabapentin 100 MG 100 MG 2-06 le} 100 MG 00:00: 00 Gabapentin Gabapentin 2021-1 No 1{capsu BID Gabapentin 100 MG 100 MG 2-06 le} 100 MG 00:00: 00 Gabapentin Gabapentin 2021-1 No 1{capsu BID Gabapentin 100 MG 100 MG 2-06 le} 100 MG 00:00: 00 Gabapentin Gabapentin 2021-1 No 1{capsu BID Gabapentin 100 MG 100 MG 2-06 le} 100 MG 00:00: 00 Gabapentin Gabapentin 2021-1 No 1{capsu BID Gabapentin 100 MG 100 MG 2-06 le} 100 MG 00:00: 00 Gabapentin Gabapentin 2021-1 No 1{capsu BID Gabapentin 100 MG 100 MG 2-06 le} 100 MG 00:00: 00 Gabapentin Gabapentin 2021-1 No 1{capsu BID Gabapentin 100 MG 100 MG 2-06 le} 100 MG 00:00: 00 Gabapentin Gabapentin 2020-09 No 1{capsu BID Gabapentin 100 MG 100 MG 2-06 le} 100 MG 00:00: 00 Gabapentin Gabapentin 2020-09 No 1{capsu BID Gabapentin 100 MG 100 MG 2-06 le} 100 MG 00:00: 00 Gabapentin Gabapentin 2020-09 No 1{capsu BID 100 MG 100 MG 2-06 le} 00:00: 00 trazodone 2020-09 No 1mg 50 mg 2-02 tablet 00:00: 00 trazodone 2020-09 No 1mg 50 mg 2-02 tablet 00:00: 00 trazodone 2020-09 No 1mg 50 mg 2-02 tablet 00:00: 00 trazodone 2020-09 No 1mg 50 mg 2-02 tablet 00:00: 00 trazodone 2020-09 No 1mg 50 mg 2-02 tablet 00:00: 00 doxepin 6 2020-09 No 1mg mg tablet 1-30 00:00: 00 Dose 2020-09 No Unknown 1-30 00:00: 00 doxepin 6 2020-09 No 1mg mg tablet 1-30 00:00: 00 Dose 2020-09 No Unknown 1-30 00:00: 00 Dose 2020-09 No Unknown 1-30 00:00: 00 HYDROcodone HYDROcodone 2020-09- No 1{table HYDROcodon -Acetaminop -Acetaminop 10-19 t_as_ne e-Acetamin hen 5-325 hen 5-325 00:00: 00:00 eded} ophen MG MG 00 :00 5-325 MG HYDROcodone HYDROcodone 2020-09- No 1{table HYDROcodon -Acetaminop -Acetaminop 10-01 t_as_ne e-Acetamin hen 5-325 hen 5-325 00:00: 00:00 eded} ophen MG MG 00 :00 5-325 MG HYDROcodone HYDROcodone 2020-09- No 1{table HYDROcodon -Acetaminop -Acetaminop 10-01 t_as_ne e-Acetamin hen 5-325 hen 5-325 00:00: 00:00 eded} ophen MG MG 00 :00 5-325 MG HYDROcodone HYDROcodone 2020-09- No 1{table HYDROcodon -Acetaminop -Acetaminop 10-01 t_as_ne e-Acetamin hen 5-325 hen 5-325 00:00: 00:00 eded} ophen MG MG 00 :00 5-325 MG HYDROcodone HYDROcodone 2020-09- No 1{table HYDROcodon -Acetaminop -Acetaminop 10-01 t_as_ne e-Acetamin hen 5-325 hen 5-325 00:00: 00:00 eded} ophen MG MG 00 :00 5-325 MG HYDROcodone HYDROcodone 2020-09- No 1{table HYDROcodon -Acetaminop -Acetaminop 09-22 t_as_ne e-Acetamin hen 5-325 hen 5-325 00:00: 00:00 eded} ophen MG MG 00 :00 5-325 MG HYDROcodone HYDROcodone 2020-09- No 1{table HYDROcodon -Acetaminop -Acetaminop 09-22 t_as_ne e-Acetamin hen 5-325 hen 5-325 00:00: 00:00 eded} ophen MG MG 00 :00 5-325 MG HYDROcodone HYDROcodone 2020-09- No 1{table HYDROcodon -Acetaminop -Acetaminop 09-22 t_as_ne e-Acetamin hen 5-325 hen 5-325 00:00: 00:00 eded} ophen MG MG 00 :00 5-325 MG HYDROcodone HYDROcodone 2020-09- No 1{table HYDROcodon -Acetaminop -Acetaminop 09-22 t_as_ne e-Acetamin hen 5-325 hen 5-325 00:00: 00:00 eded} ophen MG MG 00 :00 5-325 MG HYDROcodone HYDROcodone 2020-09- No 1{table HYDROcodon -Acetaminop -Acetaminop 09-21 t_as_ne e-Acetamin hen 5-325 hen 5-325 00:00: 00:00 eded} ophen MG MG 00 :00 5-325 MG traMADol traMADol 2020-09 No traMADol HCl 50 MG HCl 50 MG 0-29 HCl 50 MG 00:00: 00 traMADol traMADol 2020-09 No traMADol HCl 50 MG HCl 50 MG 0-29 HCl 50 MG 00:00: 00 traMADol traMADol 2020-09 No traMADol HCl 50 MG HCl 50 MG 0-29 HCl 50 MG 00:00: 00 traMADol traMADol 2020-09 No traMADol HCl 50 MG HCl 50 MG 0-29 HCl 50 MG 00:00: 00 traMADol traMADol 2020-09 No HCl 50 MG HCl 50 MG 0-29 00:00: 00 traMADol traMADol 2020-09 No traMADol HCl 50 MG HCl 50 MG 0-29 HCl 50 MG 00:00: 00 traMADol traMADol 2020-09 No traMADol HCl 50 MG HCl 50 MG 0-29 HCl 50 MG 00:00: 00 traMADol traMADol 2020-09 No traMADol HCl 50 MG HCl 50 MG 0-29 HCl 50 MG 00:00: 00 traMADol traMADol 2020-09 No traMADol HCl 50 MG HCl 50 MG 0-29 HCl 50 MG 00:00: 00 traMADol traMADol 2020-09 No traMADol HCl 50 MG HCl 50 MG 0-29 HCl 50 MG 00:00: 00 traMADol traMADol 2020-09 No traMADol HCl 50 MG HCl 50 MG 0-29 HCl 50 MG 00:00: 00 traMADol traMADol 2020-09 No traMADol HCl 50 MG HCl 50 MG 0-29 HCl 50 MG 00:00: 00 traMADol traMADol 2020-09 No traMADol HCl 50 MG HCl 50 MG 0-29 HCl 50 MG 00:00: 00 traMADol traMADol 2020-09 No traMADol HCl 50 MG HCl 50 MG 0-29 HCl 50 MG 00:00: 00 traMADol traMADol 2020-09 No traMADol HCl 50 MG HCl 50 MG 0-29 HCl 50 MG 00:00: 00 traMADol traMADol 2020-09 No traMADol HCl 50 MG HCl 50 MG 0-29 HCl 50 MG 00:00: 00 traMADol traMADol 2020-09 No traMADol HCl 50 MG HCl 50 MG 0-29 HCl 50 MG 00:00: 00 traMADol traMADol 2020-09 No traMADol HCl 50 MG HCl 50 MG 0-29 HCl 50 MG 00:00: 00 traMADol traMADol 2020-09 No traMADol HCl 50 MG HCl 50 MG 0-29 HCl 50 MG 00:00: 00 traMADol traMADol 2020-09 No traMADol HCl 50 MG HCl 50 MG 0-29 HCl 50 MG 00:00: 00 traMADol traMADol 2020-09 No traMADol HCl 50 MG HCl 50 MG 0-29 HCl 50 MG 00:00: 00 traMADol traMADol 2020-09 No traMADol HCl 50 MG HCl 50 MG 0-29 HCl 50 MG 00:00: 00 traMADol traMADol 2020-09 No traMADol HCl 50 MG HCl 50 MG 0-29 HCl 50 MG 00:00: 00 traMADol traMADol 2020-09 No traMADol HCl 50 MG HCl 50 MG 0-29 HCl 50 MG 00:00: 00 traMADol traMADol 2020-09 No traMADol HCl 50 MG HCl 50 MG 0-29 HCl 50 MG 00:00: 00 traMADol traMADol 2020-09 No traMADol HCl 50 MG HCl 50 MG 0-29 HCl 50 MG 00:00: 00 traMADol traMADol 2020-09 No traMADol HCl 50 MG HCl 50 MG 0-29 HCl 50 MG 00:00: 00 traMADol traMADol 2020-09 No traMADol HCl 50 MG HCl 50 MG 0-29 HCl 50 MG 00:00: 00 traMADol traMADol 2020-09 No HCl 50 MG HCl 50 MG 0-29 00:00: 00 rosuvastati 2020-09 No 1mg n 20 mg 0-18 tablet 00:00: 00 metformin 2020-1 No 1mg 500 mg 0-18 tablet 00:00: 00 rosuvastati 2020-09 No 1mg n 20 mg 0-18 tablet 00:00: 00 metformin 2020-1 No 1mg 500 mg 0-18 tablet 00:00: 00 rosuvastati 2020-09 No 1mg n 20 mg 0-18 tablet 00:00: 00 metformin 2020-1 No 1mg 500 mg 0-18 tablet 00:00: 00 rosuvastati 2020-09 No 1mg n 20 mg 0-18 tablet 00:00: 00 metformin 2020-1 No 1mg 500 mg 0-18 tablet 00:00: 00 rosuvastati 2020-09 No 1mg n 20 mg 0-18 tablet 00:00: 00 metformin 2020-1 No 1mg 500 mg 0-18 tablet 00:00: 00 Xarelto 10 Xarelto 10 2020-09 No 1{table QD Xarelto 10 MG MG 0-18 t_with_ MG 00:00: food} 00 Xarelto 10 Xarelto 10 2020-09 No 1{table QD Xarelto 10 MG MG 0-18 t_with_ MG 00:00: food} 00 Xarelto 10 Xarelto 10 2020-09 No 1{table QD Xarelto 10 MG MG 0-18 t_with_ MG 00:00: food} Xarelto 10 Xarelto 10 2020-09 No 1{table QD Xarelto 10 MG MG 0-18 t_with_ MG 00:00: food} Xarelto 10 Xarelto 10 2020-09 No 1{table QD MG MG 0-18 t_with_ 00:00: food} Xarelto 10 Xarelto 10 2020-09 No 1{table QD Xarelto 10 MG MG 0-18 t_with_ MG 00:00: food} Xarelto 10 Xarelto 10 2020-09 No 1{table QD Xarelto 10 MG MG 0-18 t_with_ MG 00:00: food} Xarelto 10 Xarelto 10 2020-09 No 1{table QD Xarelto 10 MG MG 0-18 t_with_ MG 00:00: food} Xarelto 10 Xarelto 10 2020-09 No 1{table QD Xarelto 10 MG MG 0-18 t_with_ MG 00:00: food} Xarelto 10 Xarelto 10 2020-09 No 1{table QD Xarelto 10 MG MG 0-18 t_with_ MG 00:00: food} 00 Xarelto 10 Xarelto 10 2020-09 No 1{table QD Xarelto 10 MG MG 0-18 t_with_ MG 00:00: food} Xarelto 10 Xarelto 10 2020-09 No 1{table QD Xarelto 10 MG MG 0-18 t_with_ MG 00:00: food} 00 Xarelto 10 Xarelto 10 2020-09 No 1{table QD Xarelto 10 MG MG 0-18 t_with_ MG 00:00: food} 00 Xarelto 10 Xarelto 10 2020-09 No 1{table QD Xarelto 10 MG MG 0-18 t_with_ MG 00:00: food} 00 Xarelto 10 Xarelto 10 2020-09 No 1{table QD Xarelto 10 MG MG 0-18 t_with_ MG 00:00: food} 00 Xarelto 10 Xarelto 10 2020-09 No 1{table QD Xarelto 10 MG MG 0-18 t_with_ MG 00:00: food} 00 Xarelto 10 Xarelto 10 2020-09 No 1{table QD Xarelto 10 MG MG 0-18 t_with_ MG 00:00: food} 00 Xarelto 10 Xarelto 10 2020-09 No 1{table QD Xarelto 10 MG MG 0-18 t_with_ MG 00:00: food} Xarelto 10 Xarelto 10 2020-09 No 1{table QD Xarelto 10 MG MG 0-18 t_with_ MG 00:00: food} Xarelto 10 Xarelto 10 2020-09 No 1{table QD Xarelto 10 MG MG 0-18 t_with_ MG 00:00: food} 00 Xarelto 10 Xarelto 10 2020-09 No 1{table QD Xarelto 10 MG MG 0-18 t_with_ MG 00:00: food} Xarelto 10 Xarelto 10 2020-09 No 1{table QD Xarelto 10 MG MG 0-18 t_with_ MG 00:00: food} 00 Xarelto 10 Xarelto 10 2020-09 No 1{table QD Xarelto 10 MG MG 0-18 t_with_ MG 00:00: food} 00 Xarelto 10 Xarelto 10 2020-09 No 1{table QD Xarelto 10 MG MG 0-18 t_with_ MG 00:00: food} 00 Xarelto 10 Xarelto 10 2020-09 No 1{table QD Xarelto 10 MG MG 0-18 t_with_ MG 00:00: food} 00 Xarelto 10 Xarelto 10 2020-09 No 1{table QD Xarelto 10 MG MG 0-18 t_with_ MG 00:00: food} 00 Xarelto 10 Xarelto 10 2020-09 No 1{table QD Xarelto 10 MG MG 0-18 t_with_ MG 00:00: food} 00 Xarelto 10 Xarelto 10 2020-09 No 1{table QD Xarelto 10 MG MG 0-18 t_with_ MG 00:00: food} 00 Xarelto 10 Xarelto 10 2020-09 No 1{table QD Xarelto 10 MG MG 0-18 t_with_ MG 00:00: food} Xarelto 10 Xarelto 10 2020-09 No 1{table QD Xarelto 10 MG MG 0-18 t_with_ MG 00:00: food} Xarelto 10 Xarelto 10 2020-09 No 1{table QD Xarelto 10 MG MG 0-18 t_with_ MG 00:00: food} Xarelto 10 Xarelto 10 2020-09 No 1{table QD Xarelto 10 MG MG 0-18 t_with_ MG 00:00: food} Xarelto 10 Xarelto 10 2020-09 No 1{table QD MG MG 0-18 t_with_ 00:00: food} 00 HYDROcodone HYDROcodone 2020-09- No 1{table HYDROcodon -Acetaminop -Acetaminop 0-18 11-17 t_as_ne e-Acetamin hen 7.5-325 hen 7.5-325 00:00: 00:00 eded} ophen MG MG 00 :00 7.5-325 MG HYDROcodone HYDROcodone 2020-09- No 1{table HYDROcodon -Acetaminop -Acetaminop 0-18 11-17 t_as_ne e-Acetamin hen 7.5-325 hen 7.5-325 00:00: 00:00 eded} ophen MG MG 00 :00 7.5-325 MG HYDROcodone HYDROcodone 2020-09- No 1{table HYDROcodon -Acetaminop -Acetaminop 0-18 11-17 t_as_ne e-Acetamin hen 7.5-325 hen 7.5-325 00:00: 00:00 eded} ophen MG MG 00 :00 7.5-325 MG HYDROcodone HYDROcodone 2020-09- No 1{table HYDROcodon -Acetaminop -Acetaminop 0-18 11-17 t_as_ne e-Acetamin hen 7.5-325 hen 7.5-325 00:00: 00:00 eded} ophen MG MG 00 :00 7.5-325 MG HYDROcodone HYDROcodone 2020-09- No 1{table HYDROcodon -Acetaminop -Acetaminop 0-18 -17 t_as_ne e-Acetamin hen 7.5-325 hen 7.5-325 00:00: 00:00 eded} ophen MG MG 00 :00 7.5-325 MG HYDROcodone HYDROcodone 2020-09- No 1{table HYDROcodon -Acetaminop -Acetaminop 0-18 -17 t_as_ne e-Acetamin hen 7.5-325 hen 7.5-325 00:00: 00:00 eded} ophen MG MG 00 :00 7.5-325 MG HYDROcodone HYDROcodone 2020-09- No 1{table HYDROcodon -Acetaminop -Acetaminop 0-18 -17 t_as_ne e-Acetamin hen 7.5-325 hen 7.5-325 00:00: 00:00 eded} ophen MG MG 00 :00 7.5-325 MG HYDROcodone HYDROcodone 2020-09- No 1{table HYDROcodon -Acetaminop -Acetaminop 0-18 -17 t_as_ne e-Acetamin hen 7.5-325 hen 7.5-325 00:00: 00:00 eded} ophen MG MG 00 :00 7.5-325 MG HYDROcodone HYDROcodone 2020-09- No 1{table HYDROcodon -Acetaminop -Acetaminop 0-18 -17 t_as_ne e-Acetamin hen 7.5-325 hen 7.5-325 00:00: 00:00 eded} ophen MG MG 00 :00 7.5-325 MG rosuvastati 2020-0 No 1mg n 20 mg 5-26 tablet 00:00: 00 metformin 2020-0 No 1mg 500 mg 5-26 tablet 00:00: 00 rosuvastati 2020-0 No 1mg n 20 mg 5-26 tablet 00:00: 00 metformin 1-0 No 1mg 500 mg 5-26 tablet 00:00: 00 rosuvastati 2021-0 No 1mg n 20 mg 5-26 tablet 00:00: 00 metformin 2021-0 No 1mg 500 mg 5-26 tablet 00:00: 00 rosuvastati 2021-0 No 1mg n 20 mg 5-26 tablet 00:00: 00 metformin 2021-0 No 1mg 500 mg 5-26 tablet 00:00: 00 rosuvastati 2021-0 No 1mg n 20 mg 5-26 tablet 00:00: 00 metformin 2021-0 No 1mg 500 mg 5-26 tablet 00:00: 00 rosuvastati 2021-0 No 1mg n 20 mg 5-26 tablet 00:00: 00 metformin 2021-0 No 1mg 500 mg 5-26 tablet 00:00: 00 rosuvastati 2021-0 No 1mg n 20 mg 5-26 tablet 00:00: 00 metformin 2021-0 No 1mg 500 mg 5-26 tablet 00:00: 00 rosuvastati 2021-0 No 1mg n 20 mg 5-26 tablet 00:00: 00 metformin 2021-0 No 1mg 500 mg 5-26 tablet 00:00: 00 rosuvastati 2021-0 No 1mg n 20 mg 5-26 tablet 00:00: 00 metformin 2021-0 No 1mg 500 mg 5-26 tablet 00:00: 00 rosuvastati 2021-0 No 1mg n 20 mg 5-26 tablet 00:00: 00 metformin 2021-0 No 1mg 500 mg 5-26 tablet 00:00: 00 metformin 2021-0 No 1mg 500 mg 2-23 tablet 00:00: 00 rosuvastati 2021-0 No 1mg n 20 mg 2-23 tablet 00:00: 00 metformin 2021-0 No 1mg 500 mg 2-23 tablet 00:00: 00 metformin 2021-0 No 1mg 500 mg 2-23 tablet 00:00: 00 rosuvastati 2021-0 No 1mg n 20 mg 2-23 tablet 00:00: 00 rosuvastati 2021-0 No 1mg n 20 mg 2-23 tablet 00:00: 00 metformin 2021-0 No 1mg 500 mg 2-23 tablet 00:00: 00 rosuvastati 2021-0 No 1mg n 20 mg 2-23 tablet 00:00: 00 metformin 2021-0 No 1mg 500 mg 2-23 tablet 00:00: 00 rosuvastati 2021-0 No 1mg n 20 mg 2-23 tablet 00:00: 00 Macrobid 2021-0 No 1mg 100 mg 2-19 capsule 00:00: 00 Macrobid 2021-0 No 1mg 100 mg 2-19 capsule 00:00: 00 Macrobid 2021-0 No 1mg 100 mg 2-19 capsule 00:00: 00 Macrobid 2021-0 No 1mg 100 mg 2-19 capsule 00:00: 00 Macrobid 2021-0 No 1mg 100 mg 2-19 capsule 00:00: 00 Bupivicaine Bupivicaine 2020-0 No 4mL Common [facility] 9-22 [facility] 00:00: - [facility] 00 [facility] Kenalog Kenalog 2020-0 No 40mg Common (Triamcinol (Triamcinol 9-22 S pirit one) one) 00:00: - [facility] 00 [facility] Bupivicaine Bupivicaine 2020-0 No 4mL Common [place] Laque[place] 9-22 [facility] 00:00: - [facility] 00 [facility] Kenalog Kenalog 2020-0 No 40mg Common (Triamcinol (Triamcinol 9-22 S pirit one) one) 00:00: - [facility] 00 [facility] Bupivicaine Bupivicaine 2020-0 No 4mL Common [place]que[place] 9-22 [facility] 00:00: - [facility] 00 [facility] Kenalog Kenalog 2020-0 No 40mg Common (Triamcinol (Triamcinol 9-22 S pirit one) one) 00:00: - [facility] 00 [facility] Bupivicaine Bupivicaine 2020-0 No 4mL Common [place] Laquey 9-22 [facility] 00:00: - [facility] 00 [facility] Kenalog Kenalog 2020-0 No 40mg Common (Triamcinol (Triamcinol 9-22 S pirit one) one) 00:00: - [facility] 00 [facility] Bupivicaine Bupivicaine 2020-0 No 4mL Common [place] Laque[place] 9-22 [facility] 00:00: - [facility] 00 [facility] Kenalog Kenalog 2020-0 No 40mg Common (Triamcinol (Triamcinol 9-22 S pirit one) one) 00:00: - [facility] 00 [facility] Bupivicaine Bupivicaine 2020-0 No 4mL Common [place] Laquey 9-22 [facility] 00:00: - [facility] 00 [facility] Kenalog Kenalog 2020-0 No 40mg Common (Triamcinol (Triamcinol 9-22 S pirit one) one) 00:00: - [facility] 00 [facility] Bupivicaine Bupivicaine 2020-0 No 4mL Common [place]que[place] 9-22 [facility] 00:00: - [facility] 00 [facility] Kenalog Kenalog 2020-0 No 40mg Common (Triamcinol (Triamcinol 9-22 S pirit one) one) 00:00: - [facility] 00 [facility] Bupivicaine Bupivicaine 2020-0 No 4mL Common [place] Laque[place] 9-22 [facility] 00:00: - [facility] 00 [facility] Kenalog Kenalog 2020-0 No 40mg Common (Triamcinol (Triamcinol 9-22 S pirit one) one) 00:00: - [facility] 00 [facility] Bupivicaine Bupivicaine 2020-0 No 4mL Common [place] Laque[place] 9-22 [facility] 00:00: - [facility] 00 [facility] Kenalog Kenalog 2020-0 No 40mg Common (Triamcinol (Triamcinol 9-22 S pirit one) one) 00:00: - [facility] 00 [facility] Bupivicaine Bupivicaine 2020-0 No 4mL Common [place] 9-22 [facility] 00:00: - [facility] 00 [facility] Kenalog Kenalog 2020-0 No 40mg Common (Triamcinol (Triamcinol 9-22 S pirit one) one) 00:00: - [facility] 00 [facility] cetirizine 2020-0 No 1mg 10 mg 5-19 tablet 00:00: 00 cetirizine 2020-0 No 1mg 10 mg 5-19 tablet 00:00: 00 cetirizine 2020-0 No 1mg 10 mg 5-19 tablet 00:00: 00 cetirizine 2020-0 No 1mg 10 mg 5-19 tablet 00:00: 00 cetirizine 2020-0 No 1mg 10 mg 5-19 tablet 00:00: 00 Hyalgan 20 Hyalgan 20 2020-0 No 2mL C ommon mg mg 02-01 Spirit 00:00: - [facility] Hyalgan 20 Hyalgan 20 2020-0 No 2mL C ommon mg mg 02-01 Spirit 00:00: - [facility] 00 [facility] Hyalgan 20 Hyalgan 20 2020-0 No 2mL C ommon mg mg 02-01 [facility] 00:00: - [facility] 00 [facility] Hyalgan 20 Hyalgan 20 2020-0 No 2mL C ommon mg mg 02-01 [facility] 00:00: - [facility] 00 [facility] Hyalgan 20 Hyalgan 20 2020-0 No 2mL C ommon mg mg 02-01 [facility] 00:00: - [facility] 00 [facility] Hyalgan 20 Hyalgan 20 2020-0 No 2mL C ommon mg mg 02-01 [facility] 00:00: - [facility] Hyalgan 20 Hyalgan 20 2020-0 No 2mL C ommon mg mg 02-01 [facility] 00:00: - [facility] 00 [facility] Hyalgan 20 Hyalgan 20 2020-0 No 2mL C ommon mg mg 02-01 [facility] 00:00: - [facility] 00 [facility] Hyalgan 20 Hyalgan 20 2020-0 No 2mL C ommon mg mg 02-01 [facility] 00:00: - [facility] 00 [facility] Hyalgan 20 Hyalgan 20 2020-0 No 2mL C ommon mg mg 02-01 [facility] 00:00: - [facility] 00 [facility] Ibuprofen Ibuprofen 2020-0 Yes Mu 1 PO TUD Common 01-25 [place] PRN [facility] 00:00: - [facility] 00 [facility] Hyalgan 20 Hyalgan 20 2020-0 No 2mL C ommon mg mg 01-25 [facility] 00:00: - [facility] 00 [facility] Hyalgan 20 Hyalgan 20 2020-0 No 2mL C ommon mg mg 01-25 [facility] 00:00: - [facility] 00 [facility] Hyalgan 20 Hyalgan 20 2020-0 No 2mL C ommon mg mg 01-25 [facility] 00:00: - [facility] 00 [facility] Hyalgan 20 Hyalgan 20 2020-0 No 2mL C ommon mg mg 01-25 [facility] 00:00: - [facility] Hyalgan 20 Hyalgan 20 2020-0 No 2mL C ommon mg mg 01-25 [facility] 00:00: - [facility] Hyalgan 20 Hyalgan 20 2020-0 No 2mL C ommon mg mg 01-25 [facility] 00:00: - [facility] Hyalgan 20 Hyalgan 20 2020-0 No 2mL C ommon mg mg 01-25 [facility] 00:00: - [facility] Hyalgan 20 Hyalgan 20 2020-0 No 2mL C ommon mg mg 01-25 [facility] 00:00: - [facility] Hyalgan 20 Hyalgan 20 2020-0 No 2mL C ommon mg mg 01-25 [facility] 00:00: - [facility] Hyalgan 20 Hyalgan 20 2020-0 No 2mL C ommon mg mg 01-25 [facility] 00:00: - [facility] Hyalgan 20 Hyalgan 20 2020-0 No 20mg C ommon mg mg 01-15 [facility] 00:00: - [facility] Hyalgan 20 Hyalgan 20 2020-0 No 20mg C ommon mg mg 01-15 [facility] 00:00: - [facility] Hyalgan 20 Hyalgan 20 2020-0 No 20mg C ommon mg mg 01-15 [facility] 00:00: - [facility] Hyalgan 20 Hyalgan 20 2020-0 No 20mg C ommon mg mg 01-15 [facility] 00:00: - [facility] Hyalgan 20 Hyalgan 20 2020-0 No 20mg C ommon mg mg 01-15 [facility] 00:00: - [facility] Hyalgan 20 Hyalgan 20 2020-0 No 20mg C ommon mg mg 01-15 [facility] 00:00: - [facility] Hyalgan 20 Hyalgan 20 2020-0 No 20mg C ommon mg mg 01-15 [facility] 00:00: - [facility] Hyalgan 20 Hyalgan 20 2020-0 No 20mg C ommon mg mg 01-15 [facility] 00:00: - [facility] Hyalgan 20 Hyalgan 20 2020-0 No 20mg C ommon mg mg 01-15 [facility] 00:00: - [facility] 00 [facility] Hyalgan 20 Hyalgan 20 2020-0 No 20mg C ommon mg mg 27 [facility] 00:00: - [facility] 00 [facility] Kenalog Kenalog 2020-0 No 40mg Common (Triamcinol (Triamcinol 4-01 S pirit one) one) 00:00: - [facility] 00 [facility] Bupivicaine Bupivicaine 2020-0 No 4mL Common [place] Laquey 4- [facility] 00:00: - [facility] 00 [facility] Kenalog Kenalog 2020-0 No 40mg Common (Triamcinol (Triamcinol 4-01 S pirit one) one) 00:00: - [facility] 00 [facility] Bupivicaine Bupivicaine 2020-0 No 4mL Common [place] Laque[place] 4- [facility] 00:00: - [facility] 00 [facility] Kenalog Kenalog 2020-0 No 40mg Common (Triamcinol (Triamcinol 4-01 S pirit one) one) 00:00: - [facility] 00 [facility] Bupivicaine Bupivicaine 2020-0 No 4mL Common [place] Laquey 4- [facility] 00:00: - [facility] 00 [facility] Kenalog Kenalog 2020-0 No 40mg Common (Triamcinol (Triamcinol 4-01 S pirit one) one) 00:00: - [facility] 00 [facility] Bupivicaine Bupivicaine 2020-0 No 4mL Common [place] Laque[place] 4- [facility] 00:00: - [facility] 00 [facility] Kenalog Kenalog 2020-0 No 40mg Common (Triamcinol (Triamcinol 4-01 S pirit one) one) 00:00: - [facility] 00 [facility] Bupivicaine Bupivicaine 2020-0 No 4mL Common [place] Laquey 4-01 [facility] 00:00: - [facility] 00 [facility] Kenalog Kenalog 2020-0 No 40mg Common (Triamcinol (Triamcinol 4-01 S pirit one) one) 00:00: - [facility] 00 [facility] Bupivicaine Bupivicaine 2020-0 No 4mL Common [place] Laquey 4-01 [facility] 00:00: - [facility] 00 [facility] Kenalog Kenalog 2020-0 No 40mg Common (Triamcinol (Triamcinol 4-01 S pirit one) one) 00:00: - [facility] 00 [facility] Bupivicaine Bupivicaine 2020-0 No 4mL Common [place] Laquey 4-01 [facility] 00:00: - [facility] 00 [facility] Kenalog Kenalog 2020-0 No 40mg Common (Triamcinol (Triamcinol 4-01 S pirit one) one) 00:00: - [facility] 00 [facility] Bupivicaine Bupivicaine 2020-0 No 4mL Common [place] Laquey 4-01 [facility] 00:00: - [facility] 00 [facility] Kenalog Kenalog 2020-0 No 40mg Common (Triamcinol (Triamcinol 4-01 S pirit one) one) 00:00: - [facility] 00 [facility] Bupivicaine Bupivicaine 2020-0 No 4mL Common [place] Laquey 4-01 [facility] 00:00: - [facility] 00 [facility] Kenalog Kenalog 2020-0 No 40mg Common (Triamcinol (Triamcinol 4-01 S pirit one) one) 00:00: - [facility] 00 [facility] Bupivicaine Bupivicaine 2020-0 No 4mL Common [place] Laquey 4-01 [facility] 00:00: - [facility] 00 [facility] Dose 2020-0 No Unknown 2-26 00:00: 00 Dose 2020-0 No Unknown 2-26 00:00: 00 Dose 2020-0 No Unknown 2-26 00:00: 00 Dose 2020-0 No Unknown 2-26 00:00: 00 Dose 2020-0 No Unknown 2-26 00:00: 00 benzonatate 2020-0 Yes [id number] 100mg Take 1 [facility] 100 mg 2-01 capsule by ity of capsule 00:00: mouth 3 00 (three) Medical times Branch daily as needed for Cough. benzonatate 2020-0 Yes [id number] 100mg Take 1 [facility] 100 mg 2-01 capsule by ity of capsule 00:00: mouth 3 00 (three) Medical times Branch daily as needed for Cough. benzonatate 2020-0 Yes [id number] 100mg Take 1 [facility] 100 mg 2-01 capsule by ity of capsule 00:00: mouth 3 [place] 00 (three) Medical times Branch daily as needed for Cough. benzonatate 2020-0 Yes [id number] 100mg Take 1 [facility] 100 mg 2-01 capsule by ity of capsule 00:00: mouth 3 [place] [id number] (three) Medical times Branch daily as needed for Cough. azithromyci 2020-0 No 1mg n 250 mg 1-03 tablet 00:00: 00 azithromyci 2020-0 No 1mg n 250 mg 1-03 tablet 00:00: 00 azithromyci 2020-0 No 1mg n 250 mg 1-03 tablet 00:00: 00 azithromyci 2020-0 No 1mg n 250 mg 1-03 tablet 00:00: 00 azithromyci 2020-0 No 1mg n 250 mg 1-03 tablet 00:00: 00 lisinopril 2020-0 No 1mg 40 mg 1-02 tablet 00:00: 00 lisinopril 2020-0 No 1mg 40 mg 1-02 tablet 00:00: 00 Tessalon 2020-0 No 12mg [place] 100 1-02 mg capsule 00:00: 00 lisinopril 2020-0 No 1mg 40 mg 1-02 tablet 00:00: 00 lisinopril 2020-0 No 1mg 40 mg 1-02 tablet 00:00: 00 Tessalon 2020-0 No 12mg [place] 100 1-02 mg capsule 00:00: 00 lisinopril 2020-0 No 1mg 40 mg 1-02 tablet 00:00: 00 lisinopril 2020-0 No 1mg 40 mg 1-02 tablet 00:00: 00 Tessalon 2020-0 No 12mg [place] 100 1-02 mg capsule 00:00: 00 lisinopril 2020-0 No 1mg 40 mg 1-02 tablet 00:00: 00 lisinopril 2020-0 No 1mg 40 mg 1-02 tablet 00:00: 00 Tessalon 2020-0 No 12mg [place] 100 1-02 mg capsule 00:00: 00 lisinopril 2020-0 No 1mg 40 mg 1-02 tablet 00:00: 00 lisinopril 2020-0 No 1mg 40 mg 1-02 tablet 00:00: 00 Tessalon 2020-0 No 12mg [place] 100 1-02 mg capsule 00:00: 00 trazodone 2019-1 No 1mg 50 mg 0-23 tablet 00:00: 00 trazodone 2019-1 No 1mg 50 mg 0-23 tablet 00:00: 00 trazodone 2019-1 No 1mg 50 mg 0-23 tablet 00:00: 00 trazodone 2019-1 No 1mg 50 mg 0-23 tablet 00:00: 00 trazodone 2019-1 No 1mg 50 mg 0-23 tablet 00:00: 00 Kenalog Kenalog 2019-1 No 1mL Common (Triamcinol (Triamcinol 0-21 S pirit one) one) 00:00: - [facility] 00 [facility] LIDOCAINE LIDOCAINE 2019-1 No 4mL Com mon HCL 10MG/ML HCL 10MG/ML 0-21 S pirit 00:00: - [facility] 00 [facility] Kenalog Kenalog 2019-1 No 1mL Common (Triamcinol (Triamcinol 0-21 S pirit one) one) 00:00: - [facility] 00 [facility] LIDOCAINE LIDOCAINE 2019-1 No 4mL Com mon HCL 10MG/ML HCL 10MG/ML 0-21 S pirit 00:00: - [facility] 00 [facility] Kenalog Kenalog 2019-1 No 1mL Common (Triamcinol (Triamcinol 0-21 S pirit one) one) 00:00: - [facility] 00 [facility] LIDOCAINE LIDOCAINE 2019-1 No 4mL Com mon HCL 10MG/ML HCL 10MG/ML 0-21 S pirit 00:00: - [facility] 00 [facility] Kenalog Kenalog 2019-1 No 1mL Common (Triamcinol (Triamcinol 0-21 S pirit one) one) 00:00: - [facility] 00 [facility] LIDOCAINE LIDOCAINE 2019-1 No 4mL Com mon HCL 10MG/ML HCL 10MG/ML 0-21 S pirit 00:00: - [facility] 00 [facility] Kenalog Kenalog 2019-1 No 1mL Common (Triamcinol (Triamcinol 0-21 S pirit one) one) 00:00: - [facility] 00 [facility] LIDOCAINE LIDOCAINE 2019-1 No 4mL Com mon HCL 10MG/ML HCL 10MG/ML 0-21 S pirit 00:00: - [facility] 00 [facility] Kenalog Kenalog 2019-1 No 1mL Common (Triamcinol (Triamcinol 0-21 S pirit one) one) 00:00: - [facility] 00 [facility] LIDOCAINE LIDOCAINE 2019-1 No 4mL Com mon HCL 10MG/ML HCL 10MG/ML 0-21 S pirit 00:00: - [facility] 00 [facility] Kenalog Kenalog 2019-1 No 1mL Common (Triamcinol (Triamcinol 0-21 S pirit one) one) 00:00: - [facility] 00 [facility] LIDOCAINE LIDOCAINE 2019-1 No 4mL Com mon HCL 10MG/ML HCL 10MG/ML 0-21 S pirit 00:00: - [facility] 00 [facility] Kenalog Kenalog 2019-1 No 1mL Common (Triamcinol (Triamcinol 0-21 S pirit one) one) 00:00: - [facility] LIDOCAINE LIDOCAINE 2019-1 No 4mL Com mon HCL 10MG/ML HCL 10MG/ML 0-21 S pirit 00:00: - [facility] 00 [facility] Kenalog Kenalog 2019-1 No 1mL Common (Triamcinol (Triamcinol 0-21 S pirit one) one) 00:00: - [facility] 00 [facility] LIDOCAINE LIDOCAINE 2019-1 No 4mL Com mon HCL 10MG/ML HCL 10MG/ML 0-21 S pirit 00:00: - [facility] 00 [facility] Kenalog Kenalog 2019-1 No 1mL Common (Triamcinol (Triamcinol 0-21 S pirit one) one) 00:00: - [facility] 00 [facility] LIDOCAINE LIDOCAINE 2019-1 No 4mL Com mon HCL 10MG/ML HCL 10MG/ML 0-21 S pirit 00:00: - [facility] lisinopril 2019-0 No 1mg 40 mg 8-14 tablet 00:00: 00 amlodipine 2019-0 No 1mg 5 mg tablet 8-14 00:00: 00 meloxicam 2019-0 No 1mg 15 mg 8-14 tablet 00:00: 00 lisinopril 2019-0 No 1mg 40 mg 8-14 tablet 00:00: 00 amlodipine 2019-0 No 1mg 5 mg tablet 8-14 00:00: 00 meloxicam 2019-0 No 1mg 15 mg 8-14 tablet 00:00: 00 lisinopril 2019-0 No 1mg 40 mg 8-14 tablet 00:00: 00 amlodipine 2019-0 No 1mg 5 mg tablet 8-14 00:00: 00 meloxicam 2019-0 No 1mg 15 mg 8-14 tablet 00:00: 00 lisinopril 2019-0 No 1mg 40 mg 8-14 tablet 00:00: 00 amlodipine 2019-0 No 1mg 5 mg tablet 814 00:00: 00 meloxicam 2019-0 No 1mg 15 mg 8-14 tablet 00:00: 00 lisinopril 2019-0 No 1mg 40 mg 8-14 tablet 00:00: 00 amlodipine 2019-0 No 1mg 5 mg tablet 814 00:00: 00 meloxicam 2019-0 No 1mg 15 mg 8-14 tablet 00:00: 00 Hyalgan 20 Hyalgan 20 2019-0 No 20mg C ommon mg mg 7-16 [facility] 00:00: - [facility] 00 [facility] Hyalgan 20 Hyalgan 20 2019-0 No 20mg C ommon mg mg 7-16 [facility] 00:00: - [facility] 00 [facility] Hyalgan 20 Hyalgan 20 2019-0 No 20mg C ommon mg mg 7-16 [facility] 00:00: - [facility] 00 [facility] Hyalgan 20 Hyalgan 20 2019-0 No 20mg C ommon mg mg 7-16 [facility] 00:00: - [facility] 00 [facility] Hyalgan 20 Hyalgan 20 2019-0 No 20mg C ommon mg mg 7-16 [facility] 00:00: - [facility] 00 [facility] Hyalgan 20 Hyalgan 20 2019-0 No 20mg C ommon mg mg 7-16 [facility] 00:00: - [facility] 00 [facility] Hyalgan 20 Hyalgan 20 2019-0 No 20mg C ommon mg mg 7-16 [facility] 00:00: - [facility] 00 [facility] Hyalgan 20 Hyalgan 20 2019-0 No 20mg C ommon mg mg 7-16 [facility] 00:00: - [facility] 00 [facility] Hyalgan 20 Hyalgan 20 2019-0 No 20mg C ommon mg mg 7-16 [facility] 00:00: - [facility] 00 [facility] Hyalgan 20 Hyalgan 20 2019-0 No 20mg C ommon mg mg 04-05 [facility] 00:00: - [facility] Hyalgan 20 Hyalgan 20 2019-0 No 20mg C ommon mg mg 03-29 [facility] 00:00: - [facility] Hyalgan 20 Hyalgan 20 2019-0 No 20mg C ommon mg mg 03-29 [facility] 00:00: - [facility] Hyalgan 20 Hyalgan 20 2019-0 No 20mg C ommon mg mg 03-29 [facility] 00:00: - [facility] Hyalgan 20 Hyalgan 20 2019-0 No 20mg C ommon mg mg 03-29 [facility] 00:00: - [facility] Hyalgan 20 Hyalgan 20 2019-0 No 20mg C ommon mg mg 03-29 [facility] 00:00: - [facility] Hyalgan 20 Hyalgan 20 2019-0 No 20mg C ommon mg mg 03-29 [facility] 00:00: - [facility] Hyalgan 20 Hyalgan 20 2019-0 No 20mg C ommon mg mg 03-29 [facility] 00:00: - [facility] Hyalgan 20 Hyalgan 20 2019-0 No 20mg C ommon mg mg 03-29 [facility] 00:00: - [facility] Hyalgan 20 Hyalgan 20 2019-0 No 20mg C ommon mg mg 03-29 [facility] 00:00: - [facility] Hyalgan 20 Hyalgan 20 2019-0 No 20mg C ommon mg mg 03-29 [facility] 00:00: - [facility] LIDOCAINE LIDOCAINE 2019-0 No 10mg Com mon HCL 10MG/ML HCL 10MG/ML 7- S pirit 00:00: - [facility] Hyalgan 20 Hyalgan 20 2019-0 No 20mg C ommon mg mg 03-22 [facility] 00:00: - [facility] Kenalog Kenalog 2019-0 No 40mg Common (Triamcinol (Triamcinol 7- S pirit one) one) 00:00: - [facility] LIDOCAINE LIDOCAINE 2019-0 No 10mg Com mon HCL 10MG/ML HCL 10MG/ML 7-02 S pirit 00:00: - [facility] 00 [facility] Hyalgan 20 Hyalgan 20 2019-0 No 20mg C ommon mg mg 7 [facility] 00:00: - [facility] Kenalog Kenalog 2019-0 No 40mg Common (Triamcinol (Triamcinol 7-02 S pirit one) one) 00:00: - [facility] LIDOCAINE LIDOCAINE 2019-0 No 10mg Com mon HCL 10MG/ML HCL 10MG/ML 7-02 S pirit 00:00: - [facility] Hyalgan 20 Hyalgan 20 2019-0 No 20mg C ommon mg mg 7 Spirit 00:00: - [facility] Kenalog Kenalog 2019-0 No 40mg Common (Triamcinol (Triamcinol 7-02 S pirit one) one) 00:00: - [facility] LIDOCAINE LIDOCAINE 2019-0 No 10mg Com mon HCL 10MG/ML HCL 10MG/ML 7-02 S pirit 00:00: - [facility] Hyalgan 20 Hyalgan 20 2019-0 No 20mg C ommon mg mg 7 Spirit 00:00: - [facility] Kenalog Kenalog 2019-0 No 40mg Common (Triamcinol (Triamcinol 7-02 S pirit one) one) 00:00: - [facility] LIDOCAINE LIDOCAINE 2019-0 No 10mg Com mon HCL 10MG/ML HCL 10MG/ML 7- S pirit 00:00: - [facility] Hyalgan 20 Hyalgan 20 2019-0 No 20mg C ommon mg mg 7 Spirit 00:00: - [facility] Kenalog Kenalog 2019-0 No 40mg Common (Triamcinol (Triamcinol 7-02 S pirit one) one) 00:00: - [facility] LIDOCAINE LIDOCAINE 2019-0 No 10mg Com mon HCL 10MG/ML HCL 10MG/ML 7-02 S pirit 00:00: - [facility] Hyalgan 20 Hyalgan 20 2019-0 No 20mg C ommon mg mg 7 Spirit 00:00: - [facility] Kenalog Kenalog 2019-0 No 40mg Common (Triamcinol (Triamcinol 7-02 S pirit one) one) 00:00: - [facility] LIDOCAINE LIDOCAINE 2019-0 No 10mg Com mon HCL 10MG/ML HCL 10MG/ML 7-02 S pirit 00:00: - [facility] Hyalgan 20 Hyalgan 20 2019-0 No 20mg C ommon mg mg 7 Spirit 00:00: - [facility] Kenalog Kenalog 2019-0 No 40mg Common (Triamcinol (Triamcinol 7-02 S pirit one) one) 00:00: - [facility] LIDOCAINE LIDOCAINE 2019-0 No 10mg Com mon HCL 10MG/ML HCL 10MG/ML 7-02 S pirit 00:00: - [facility] Hyalgan 20 Hyalgan 20 2019-0 No 20mg C ommon mg mg 7 Spirit 00:00: - [facility] Kenalog Kenalog 2019-0 No 40mg Common (Triamcinol (Triamcinol 7-02 S pirit one) one) 00:00: - [facility] LIDOCAINE LIDOCAINE 2019-0 No 10mg Com mon HCL 10MG/ML HCL 10MG/ML 7-02 S pirit 00:00: - [facility] Hyalgan 20 Hyalgan 20 2019-0 No 20mg C ommon mg mg 7 Spirit 00:00: - [facility] Kenalog Kenalog 2019-0 No 40mg Common (Triamcinol (Triamcinol 7-02 S pirit one) one) 00:00: - [facility] LIDOCAINE LIDOCAINE 2019-0 No 10mg Com mon HCL 10MG/ML HCL 10MG/ML 7-02 S pirit 00:00: - [facility] Hyalgan 20 Hyalgan 20 2019-0 No 20mg C ommon mg mg 7-02 Spirit 00:00: - [facility] Kenalog Kenalog 2019-0 No 40mg Common (Triamcinol (Triamcinol 7-02 S pirit one) one) 00:00: - [facility] fluticasone 2019-0 No 2mcg/ac propionate 01-20 tuation 50 00:00: mcg/actuati 00 on nasal spray,suspe nsion fluticasone 2019-0 No 2mcg/ac propionate 01-20 tuation 50 00:00: mcg/actuati 00 on nasal spray,suspe nsion fluticasone 2019-0 No 2mcg/ac propionate 01-20 tuation 50 00:00: mcg/actuati 00 on nasal spray,suspe nsion fluticasone 2019-0 No 2mcg/ac propionate 01-20 tuation 50 00:00: mcg/actuati 00 on nasal spray,suspe nsion fluticasone 2019-0 No 2mcg/ac propionate 01-20 tuation 50 00:00: mcg/actuati 00 on nasal spray,suspe nsion lisinopril 2019-0 No 1mg 40 mg 4- tablet 00:00: 00 amlodipine 2019-0 No 1mg 5 mg tablet 12-20 00:00: 00 meloxicam 2019-0 No 1mg 15 mg 4- tablet 00:00: 00 fluticasone 2019-0 No 2mcg/ac propionate 12-20 tuation 50 00:00: mcg/actuati 00 on nasal spray,suspe nsion Bromfed DM 2019-0 No 5mg/5 2 mg-30 4- mL mg-10 mg/5 00:00: mL oral 00 syrup lisinopril 2019-0 No 1mg 40 mg 4- tablet 00:00: 00 amlodipine 2019-0 No 1mg 5 mg tablet 4 00:00: 00 meloxicam 2019-0 No 1mg 15 mg 4-01 tablet 00:00: 00 fluticasone 2019-0 No 2mcg/ac propionate 12-20 tuation 50 00:00: mcg/actuati 00 on nasal spray,suspe nsion Bromfed DM 2019-0 No 5mg/5 2 mg-30 4-01 mL mg-10 mg/5 00:00: mL oral 00 syrup lisinopril 2019-0 No 1mg 40 mg 4-01 tablet 00:00: 00 amlodipine 2019-0 No 1mg 5 mg tablet 12-20 00:00: 00 meloxicam 2019-0 No 1mg 15 mg 4-01 tablet 00:00: 00 fluticasone 2019-0 No 2mcg/ac propionate 4- tuation 50 00:00: mcg/actuati 00 on nasal spray,suspe nsion Bromfed DM 2019-0 No 5mg/5 2 mg-30 4-01 mL mg-10 mg/5 00:00: mL oral 00 syrup lisinopril 2019-0 No 1mg 40 mg 4- tablet 00:00: 00 amlodipine 2019-0 No 1mg 5 mg tablet 4- 00:00: 00 meloxicam 2019-0 No 1mg 15 mg 4- tablet 00:00: 00 fluticasone 2019-0 No 2mcg/ac propionate 4 tuation 50 00:00: mcg/actuati 00 on nasal spray,suspe nsion Bromfed DM 2018-0 No 5mg/5 2 mg-30 4-01 mL mg-10 mg/5 00:00: mL oral 00 syrup lisinopril 2018-0 No 1mg 40 mg 4- tablet 00:00: 00 amlodipine 2019-0 No 1mg 5 mg tablet 4- 00:00: 00 meloxicam 2019-0 No 1mg 15 mg 4- tablet 00:00: 00 fluticasone 2019-0 No 2mcg/ac propionate 4 tuation 50 00:00: mcg/actuati 00 on nasal spray,suspe nsion Bromfed DM 2019-0 No 5mg/5 2 mg-30 4-01 mL mg-10 mg/5 00:00: mL oral 00 syrup Keflex 500 2018-0 No 1mg mg capsule 3-22 00:00: 00 Keflex 500 2019-0 No 1mg mg capsule 3-22 00:00: 00 Keflex 500 2018-0 No 1mg mg capsule 3-22 00:00: 00 Keflex 500 2018-0 No 1mg mg capsule 3- 00:00: 00 Keflex 500 2018-0 No 1mg mg capsule 3- 00:00: 00 meloxicam 2019-0 No 1mg 15 mg 3-08 tablet 00:00: 00 amlodipine 2019-0 No 1mg 5 mg tablet 3-08 00:00: 00 lisinopril 2019-0 No 1mg 40 mg 3-08 tablet 00:00: 00 meloxicam 2019-0 No 1mg 15 mg 3-08 tablet 00:00: 00 amlodipine 2019-0 No 1mg 5 mg tablet 3-08 00:00: 00 lisinopril 2019-0 No 1mg 40 mg 3-08 tablet 00:00: 00 meloxicam 2019-0 No 1mg 15 mg 3-08 tablet 00:00: 00 amlodipine 2019-0 No 1mg 5 mg tablet 3-08 00:00: 00 lisinopril 2019-0 No 1mg 40 mg 3-08 tablet 00:00: 00 meloxicam 2019-0 No 1mg 15 mg 3-08 tablet 00:00: 00 amlodipine 2019-0 No 1mg 5 mg tablet 3-08 00:00: 00 lisinopril 2019-0 No 1mg 40 mg 3-08 tablet 00:00: 00 meloxicam 2019-0 No 1mg 15 mg 3-08 tablet 00:00: 00 amlodipine 2019-0 No 1mg 5 mg tablet 3-08 00:00: 00 lisinopril 2019-0 No 1mg 40 mg 3-08 tablet 00:00: 00 loratadine 2018-1 No 1mg 10 mg 0-15 tablet 00:00: 00 loratadine 2018-1 No 1mg 10 mg 0-15 tablet 00:00: 00 prednisone 2018-1 No 3mg 20 mg 0-15 tablet 00:00: 00 prednisone 2018-1 No 3mg 20 mg 0-15 tablet 00:00: 00 loratadine 2018-1 No 1mg 10 mg 0-15 tablet 00:00: 00 prednisone 2018-1 No 3mg 20 mg 0-15 tablet 00:00: 00 loratadine 2018-1 No 1mg 10 mg 0-15 tablet 00:00: 00 prednisone 2018-1 No 3mg 20 mg 0-15 tablet 00:00: 00 loratadine 2018-1 No 1mg 10 mg 0-15 tablet 00:00: 00 prednisone 2018-1 No 3mg 20 mg 0-15 tablet 00:00: 00 lisinopril 2018-0 No 1mg 40 mg 8-13 tablet 00:00: 00 amlodipine 2018-0 No 1mg 5 mg tablet 8-13 00:00: 00 meloxicam 2018-0 No 1mg 15 mg 8-13 tablet 00:00: 00 lisinopril 2018-0 No 1mg 40 mg 8-13 tablet 00:00: 00 amlodipine 2018-0 No 1mg 5 mg tablet 8-13 00:00: 00 meloxicam 2018-0 No 1mg 15 mg 8-13 tablet 00:00: 00 lisinopril 2018-0 No 1mg 40 mg 8-13 tablet 00:00: 00 amlodipine 2018-0 No 1mg 5 mg tablet 8-13 00:00: 00 meloxicam 2018-0 No 1mg 15 mg 8-13 tablet 00:00: 00 lisinopril 2018-0 No 1mg 40 mg 8-13 tablet 00:00: 00 amlodipine 2018-0 No 1mg 5 mg tablet 8-13 00:00: 00 meloxicam 2018-0 No 1mg 15 mg 8-13 tablet 00:00: 00 lisinopril 2018-0 No 1mg 40 mg 8-13 tablet 00:00: 00 amlodipine 2018-0 No 1mg 5 mg tablet 8-13 00:00: 00 meloxicam 2018-0 No 1mg 15 mg 8-13 tablet 00:00: 00 lisinopril 2018-0 No 1mg 40 mg 8-02 tablet 00:00: 00 lisinopril 2018-0 No 1mg 40 mg 8-02 tablet 00:00: 00 lisinopril 2018-0 No 1mg 40 mg 8-02 tablet 00:00: 00 lisinopril 2018-0 No 1mg 40 mg 8-02 tablet 00:00: 00 lisinopril 2018-0 No 1mg 40 mg 8-02 tablet 00:00: 00 amlodipine 2018-0 No 1mg 5 mg tablet 718 00:00: 00 amlodipine 2018-0 No 1mg 5 mg tablet 718 00:00: 00 amlodipine 2018-0 No 1mg 5 mg tablet 718 00:00: 00 amlodipine 2018-0 No 1mg 5 mg tablet 718 00:00: 00 amlodipine 2018-0 No 1mg 5 mg tablet 718 00:00: 00 lisinopril 2018-0 No 1mg 40 mg 7-02 tablet 00:00: 00 lisinopril 2018-0 No 1mg 40 mg 7-02 tablet 00:00: 00 lisinopril 2018-0 No 1mg 40 mg 7-02 tablet 00:00: 00 lisinopril 2018-0 No 1mg 40 mg 7-02 tablet 00:00: 00 lisinopril 2018-0 No 1mg 40 mg 7-02 tablet 00:00: 00 lisinopril 2018-0 No 1mg 40 mg 6-04 tablet 00:00: 00 lisinopril 2018-0 No 1mg 40 mg 6-04 tablet 00:00: 00 lisinopril 2018-0 No 1mg 40 mg 6-04 tablet 00:00: 00 lisinopril 2018-0 No 1mg 40 mg 6-04 tablet 00:00: 00 lisinopril 2018-0 No 1mg 40 mg 6-04 tablet 00:00: 00 lisinopril 2018-0 No 1mg 20 mg 5-16 tablet 00:00: 00 trazodone 2018-0 No 1mg 50 mg 5-16 tablet 00:00: 00 lisinopril 2018-0 No 1mg 20 mg 5-16 tablet 00:00: 00 trazodone 2018-0 No 1mg 50 mg 5-16 tablet 00:00: 00 lisinopril 2018-0 No 1mg 20 mg 5-16 tablet 00:00: 00 trazodone 2018-0 No 1mg 50 mg 5-16 tablet 00:00: 00 lisinopril 2018-0 No 1mg 20 mg 5-16 tablet 00:00: 00 trazodone 2018-0 No 1mg 50 mg 5-16 tablet 00:00: 00 lisinopril 2018-0 No 1mg 20 mg 5-16 tablet 00:00: 00 trazodone 2018-0 No 1mg 50 mg 5-16 tablet 00:00: 00 citalopram 2018-0 No 1mg 10 mg 5-09 tablet 00:00: 00 citalopram 2018-0 No 1mg 10 mg 5-09 tablet 00:00: 00 citalopram 2018-0 No 1mg 10 mg 5-09 tablet 00:00: 00 citalopram 2018-0 No 1mg 10 mg 5-09 tablet 00:00: 00 citalopram 2018-0 No 1mg 10 mg 5-09 tablet 00:00: 00 meloxicam 2018-0 No 1mg 15 mg 5-02 tablet 00:00: 00 lisinopril 2018-0 No 1mg 10 mg 5-02 tablet 00:00: 00 lisinopril 2018-0 No 2mg 10 mg 5-02 tablet 00:00: 00 lisinopril 2018-0 No 3mg 10 mg 5-02 tablet 00:00: 00 meloxicam 2018-0 No 1mg 15 mg 5-02 tablet 00:00: 00 lisinopril 2018-0 No 1mg 10 mg 5-02 tablet 00:00: 00 lisinopril 2018-0 No 2mg 10 mg 5-02 tablet 00:00: 00 lisinopril 2018-0 No 3mg 10 mg 5-02 tablet 00:00: 00 meloxicam 2018-0 No 1mg 15 mg 5-02 tablet 00:00: 00 lisinopril 2018-0 No 1mg 10 mg 5-02 tablet 00:00: 00 lisinopril 2018-0 No 2mg 10 mg 5-02 tablet 00:00: 00 lisinopril 2018-0 No 3mg 10 mg 5-02 tablet 00:00: 00 meloxicam 2018-0 No 1mg 15 mg 5-02 tablet 00:00: 00 lisinopril 2018-0 No 1mg 10 mg 5-02 tablet 00:00: 00 lisinopril 2018-0 No 2mg 10 mg 5-02 tablet 00:00: 00 lisinopril 2018-0 No 3mg 10 mg 5-02 tablet 00:00: 00 meloxicam 2018-0 No 1mg 15 mg 5-02 tablet 00:00: 00 lisinopril 2018-0 No 1mg 10 mg 5-02 tablet 00:00: 00 lisinopril 2018-0 No 2mg 10 mg 5-02 tablet 00:00: 00 lisinopril 2018-0 No 3mg 10 mg 5-02 tablet 00:00: 00 hydroxyzine 2017-1 No 1mg HCl 25 mg 0-05 tablet 00:00: 00 promethazin 2017-1 No 10mg/5 e-DM 6.25 0-05 mL mg-15 mg/5 00:00: mL syrup 00 hydroxyzine 2017-1 No 1mg HCl 25 mg 0-05 tablet 00:00: 00 promethazin 2017-1 No 10mg/5 e-DM 6.25 0-05 mL mg-15 mg/5 00:00: mL syrup 00 hydroxyzine 2017-1 No 1mg HCl 25 mg 0-05 tablet 00:00: 00 promethazin 2016- No 10mg/5 e-DM 6.25 0-05 mL mg-15 mg/5 00:00: mL syrup 00 hydroxyzine 2016-09 No 1mg HCl 25 mg 0-05 tablet 00:00: 00 promethazin 2016-09 No 10mg/5 e-DM 6.25 0-05 mL mg-15 mg/5 00:00: mL syrup 00 hydroxyzine 2016-09 No 1mg HCl 25 mg 0-05 tablet 00:00: 00 promethazin 2016-09 No 10mg/5 e-DM 6.25 0-05 mL mg-15 mg/5 00:00: mL syrup 00 Keflex 500 0 No 1mg mg capsule 03-12 00:00: 00 Keflex 500 0 No 1mg mg capsule 03-12 00:00: 00 Keflex 500 0 No 1mg mg capsule 03-12 00:00: 00 Keflex 500 0 No 1mg mg capsule 03-12 00:00: 00 Keflex 500 0 No 1mg mg capsule 03-12 00:00: 00 Robaxin 500 2015-09 No 1mg mg tablet 2-20 00:00: 00 diclofenac 2015-09 No 1mg sodium 50 2-20 mg 00:00: tablet,morenita yed release hydroxyzine 2015-09 No 1mg HCl 50 mg 2-20 tablet 00:00: 00 Robaxin 500 2015-09 No 1mg mg tablet 2-20 00:00: 00 diclofenac 2015-09 No 1mg sodium 50 2-20 mg 00:00: tablet,morenita yed release hydroxyzine 2015-09 No 1mg HCl 50 mg 2-20 tablet 00:00: 00 Robaxin 500 2015-09 No 1mg mg tablet 2-20 00:00: 00 diclofenac 2015-09 No 1mg sodium 50 2-20 mg 00:00: tablet,morenita yed release hydroxyzine 2015-09 No 1mg HCl 50 mg 2-20 tablet 00:00: 00 Robaxin 500 2015-09 No 1mg mg tablet 2-20 00:00: 00 diclofenac 2015-09 No 1mg sodium 50 2-20 mg 00:00: tablet,morenita yed release hydroxyzine 2016-1 No 1mg HCl 50 mg 2-20 tablet 00:00: 00 diclofenac 2015- No 1mg sodium 50 2-20 mg 00:00: tablet,morenita 00 yed release hydroxyzine 2015- No 1mg HCl 50 mg 2-20 tablet 00:00: 00 Robaxin 500 2015- No 1mg mg tablet 2-20 00:00: 00 Bactrim DS 2014-1 No 1mg 800 mg-160 1-04 mg tablet 00:00: 00 Bactrim DS 2014-1 No 1mg 800 mg-160 1-04 mg tablet 00:00: 00 Bactrim DS 2014-1 No 1mg 800 mg-160 1-04 mg tablet 00:00: 00 Bactrim DS 2014- No 1mg 800 mg-160 1-04 mg tablet 00:00: 00 Bactrim DS 2014-1 No 1mg 800 mg-160 1-04 mg tablet 00:00: 00 Ambien 5 mg 2015-0 No 1mg tablet 06-15 00:00: 00 Ambien 5 mg 2015-0 No 1mg tablet 06-15 00:00: 00 Ambien 5 mg 2015-0 No 1mg tablet 06-15 00:00: 00 Ambien 5 mg 2015-0 No 1mg tablet 06-15 00:00: 00 Ambien 5 mg 2015-0 No 1mg tablet 06-15 00:00: 00 Bromfed DM 2015-0 No 5mg/5 2 mg-30 6-15 mL mg-10 mg/5 00:00: mL syrup 00 Bromfed DM 2015-0 No 5mg/5 2 mg-30 6-15 mL mg-10 mg/5 00:00: mL syrup 00 Bromfed DM 2015-0 No 5mg/5 2 mg-30 6-15 mL mg-10 mg/5 00:00: mL syrup 00 Bromfed DM 2015-0 No 5mg/5 2 mg-30 6-15 mL mg-10 mg/5 00:00: mL syrup 00 Bromfed DM 2015-0 No 5mg/5 2 mg-30 6-15 mL mg-10 mg/5 00:00: mL syrup 00 Voltaren Voltaren No Voltaren Ibuprofen Ibuprofen No Ibuprofen 600 MG 600 MG 600 MG Cephalexin Cephalexin No Cephalexin Gabapentin Gabapentin No Gabapentin Metoprolol Metoprolol No Metoprolol Succinate Succinate Succinate ER ER ER methylPREDN methylPREDN No methylPRED ISolone ISolone NISolone Mupirocin 2 Mupirocin 2 No Mupirocin % % 2 % hydrOXYzine hydrOXYzine No hydrOXYzin HCl HCl e HCl Fluticasone Fluticasone No Fluticason Propionate Propionate e Propionate Flucelvax Flucelvax No Flucelvax Quadrivalen Quadrivalen Quadrivale t t nt Doxycycline Doxycycline No Doxycyclin Hyclate Hyclate e Hyclate amLODIPine amLODIPine No amLODIPine Besylate 5 Besylate 5 Besylate 5 MG MG MG Losartan Losartan No Losartan Potassium Potassium Potassium 100 MG 100 MG 100 MG Ofloxacin Ofloxacin No Ofloxacin levoFLOXaci levoFLOXaci No levoFLOXac n n in Gatifloxaci Gatifloxaci No Gatifloxac n n in Xarelto Xarelto No Xarelto Diclofenac Diclofenac No Diclofenac Sodium 75 Sodium 75 Sodium 75 MG MG MG Cyclobenzap Cyclobenzap No Cyclobenza rine HCl rine HCl chiara HCl Acetaminoph Acetaminoph No Acetaminop en-Codeine en-Codeine hen-Codein #3 #3 e #3 Naproxen Naproxen No Naproxen Omeprazole Omeprazole No Omeprazole Cetirizine Cetirizine No Cetirizine HCl HCl HCl Benzonatate Benzonatate No Benzonatat e Meloxicam Meloxicam No Meloxicam guaiFENesin guaiFENesin No guaiFENesi -Codeine -Codeine n-Codeine Sulfamethox Sulfamethox No Sulfametho azole-Trime azole-Trime xazole-Tri thoprim thoprim methoprim 800-160 MG 800-160 MG 800-160 MG Clarithromy Clarithromy No Clarithrom justina justina ycin traZODone traZODone No traZODone HCl HCl HCl traZODone traZODone No QD traZODone HCl 50 MG HCl 50 MG HCl 50 MG Amoxicillin Amoxicillin No Amoxicilli n predniSONE predniSONE No predniSONE Tylenol Tylenol No Tylenol Rosuvastati Rosuvastati No Rosuvastat n Calcium n Calcium in Calcium Promethazin Promethazin No Promethazi e-DM e-DM ne-DM Albuterol Albuterol No Albuterol Sulfate HFA Sulfate HFA Sulfate HFA Metformin Metformin No Metformin HCl HCl HCl Pantoprazol Pantoprazol No Pantoprazo e Sodium e Sodium le Sodium Voltaren Voltaren No Voltaren Ibuprofen Ibuprofen No Ibuprofen 600 MG 600 MG 600 MG Cephalexin Cephalexin No Cephalexin Gabapentin Gabapentin No Gabapentin Metoprolol Metoprolol No Metoprolol Succinate Succinate Succinate ER ER ER Pantoprazol Pantoprazol No Pantoprazo e Sodium e Sodium le Sodium methylPREDN methylPREDN No methylPRED ISolone ISolone NISolone Mupirocin 2 Mupirocin 2 No Mupirocin % % 2 % hydrOXYzine hydrOXYzine No hydrOXYzin HCl HCl e HCl Fluticasone Fluticasone No Fluticason Propionate Propionate e Propionate Flucelvax Flucelvax No Flucelvax Quadrivalen Quadrivalen Quadrivale t t nt Doxycycline Doxycycline No Doxycyclin Hyclate Hyclate e Hyclate amLODIPine amLODIPine No amLODIPine Besylate 5 Besylate 5 Besylate 5 MG MG MG Losartan Losartan No Losartan Potassium Potassium Potassium 100 MG 100 MG 100 MG Ofloxacin Ofloxacin No Ofloxacin Cetirizine Cetirizine No Cetirizine HCl HCl HCl levoFLOXaci levoFLOXaci No levoFLOXac n n in Gatifloxaci Gatifloxaci No Gatifloxac n n in Xarelto Xarelto No Xarelto Diclofenac Diclofenac No Diclofenac Sodium 75 Sodium 75 Sodium 75 MG MG MG Cyclobenzap Cyclobenzap No Cyclobenza rine HCl rine HCl chiara HCl Acetaminoph Acetaminoph No Acetaminop en-Codeine en-Codeine hen-Codein #3 #3 e #3 Naproxen Naproxen No Naproxen Omeprazole Omeprazole No Omeprazole Cetirizine Cetirizine No Cetirizine HCl HCl HCl Benzonatate Benzonatate No Benzonatat e amLODIPine amLODIPine No amLODIPine Besylate 5 Besylate 5 Besylate 5 MG MG MG Diclofenac Diclofenac No Diclofenac Sodium 75 Sodium 75 Sodium 75 MG MG MG Meloxicam Meloxicam No Meloxicam guaiFENesin guaiFENesin No guaiFENesi -Codeine -Codeine n-Codeine Sulfamethox Sulfamethox No Sulfametho azole-Trime azole-Trime xazole-Tri thoprim thoprim methoprim 800-160 MG 800-160 MG 800-160 MG Clarithromy Clarithromy No Clarithrom justina justina ycin traZODone traZODone No traZODone HCl HCl HCl Acetaminoph Acetaminoph No Acetaminop en-Codeine en-Codeine hen-Codein #3 #3 e #3 traZODone traZODone No QD traZODone HCl 50 MG HCl 50 MG HCl 50 MG Amoxicillin Amoxicillin No Amoxicilli n predniSONE predniSONE No predniSONE Tylenol Tylenol No Tylenol Rosuvastati Rosuvastati No Rosuvastat n Calcium n Calcium in Calcium Promethazin Promethazin No Promethazi e-DM e-DM ne-DM Albuterol Albuterol No Albuterol Sulfate HFA Sulfate HFA Sulfate HFA Metformin Metformin No Metformin HCl HCl HCl Pantoprazol Pantoprazol No Pantoprazo e Sodium e Sodium le Sodium Rosuvastati Rosuvastati No Rosuvastat n Calcium n Calcium in Calcium Voltaren Voltaren No Voltaren Ibuprofen Ibuprofen No Ibuprofen 600 MG 600 MG 600 MG Cephalexin Cephalexin No Cephalexin Gabapentin Gabapentin No Gabapentin Metoprolol Metoprolol No Metoprolol Succinate Succinate Succinate ER ER ER methylPREDN methylPREDN No methylPRED ISolone ISolone NISolone Mupirocin 2 Mupirocin 2 No Mupirocin % % 2 % hydrOXYzine hydrOXYzine No hydrOXYzin HCl HCl e HCl Doxycycline Doxycycline No Doxycyclin Hyclate Hyclate e Hyclate Fluticasone Fluticasone No Fluticason Propionate Propionate e Propionate Flucelvax Flucelvax No Flucelvax Quadrivalen Quadrivalen Quadrivale t t nt Doxycycline Doxycycline No Doxycyclin Hyclate Hyclate e Hyclate amLODIPine amLODIPine No amLODIPine Besylate 5 Besylate 5 Besylate 5 MG MG MG Losartan Losartan No Losartan Potassium Potassium Potassium 100 MG 100 MG 100 MG Ofloxacin Ofloxacin No Ofloxacin levoFLOXaci levoFLOXaci No levoFLOXac n n in Gatifloxaci Gatifloxaci No Gatifloxac n n in Xarelto Xarelto No Xarelto Albuterol Albuterol No Albuterol Sulfate HFA Sulfate HFA Sulfate HFA Diclofenac Diclofenac No Diclofenac Sodium 75 Sodium 75 Sodium 75 MG MG MG Cyclobenzap Cyclobenzap No Cyclobenza rine HCl rine HCl chiara HCl Acetaminoph Acetaminoph No Acetaminop en-Codeine en-Codeine hen-Codein #3 #3 e #3 Naproxen Naproxen No Naproxen Omeprazole Omeprazole No Omeprazole Cetirizine Cetirizine No Cetirizine HCl HCl HCl Benzonatate Benzonatate No Benzonatat e Flucelvax Flucelvax No Flucelvax Quadrivalen Quadrivalen Quadrivale t t nt Losartan Losartan No Losartan Potassium Potassium Potassium 100 MG 100 MG 100 MG Meloxicam Meloxicam No Meloxicam guaiFENesin guaiFENesin No guaiFENesi -Codeine -Codeine n-Codeine Sulfamethox Sulfamethox No Sulfametho azole-Trime azole-Trime xazole-Tri thoprim thoprim methoprim 800-160 MG 800-160 MG 800-160 MG Clarithromy Clarithromy No Clarithrom justina justina ycin traZODone traZODone No traZODone HCl HCl HCl traZODone traZODone No QD traZODone HCl 50 MG HCl 50 MG HCl 50 MG Amoxicillin Amoxicillin No Amoxicilli n predniSONE predniSONE No predniSONE Benzonatate Benzonatate No Benzonatat e Tylenol Tylenol No Tylenol Rosuvastati Rosuvastati No Rosuvastat n Calcium n Calcium in Calcium Promethazin Promethazin No Promethazi e-DM e-DM ne-DM Albuterol Albuterol No Albuterol Sulfate HFA Sulfate HFA Sulfate HFA Metformin Metformin No Metformin HCl HCl HCl Pantoprazol Pantoprazol No Pantoprazo e Sodium e Sodium le Sodium Voltaren Voltaren No Voltaren Ibuprofen Ibuprofen No Ibuprofen 600 MG 600 MG 600 MG hydrOXYzine hydrOXYzine No hydrOXYzin HCl HCl e HCl Cephalexin Cephalexin No Cephalexin Gabapentin Gabapentin No Gabapentin Metoprolol Metoprolol No Metoprolol Succinate Succinate Succinate ER ER ER methylPREDN methylPREDN No methylPRED ISolone ISolone NISolone Mupirocin 2 Mupirocin 2 No Mupirocin % % 2 % hydrOXYzine hydrOXYzine No hydrOXYzin HCl HCl e HCl Fluticasone Fluticasone No Fluticason Propionate Propionate e Propionate Flucelvax Flucelvax No Flucelvax Quadrivalen Quadrivalen Quadrivale t t nt Meloxicam Meloxicam No Meloxicam Doxycycline Doxycycline No Doxycyclin Hyclate Hyclate e Hyclate amLODIPine amLODIPine No amLODIPine Besylate 5 Besylate 5 Besylate 5 MG MG MG Losartan Losartan No Losartan Potassium Potassium Potassium 100 MG 100 MG 100 MG Ofloxacin Ofloxacin No Ofloxacin levoFLOXaci levoFLOXaci No levoFLOXac n n in Gatifloxaci Gatifloxaci No Gatifloxac n n in Xarelto Xarelto No Xarelto Diclofenac Diclofenac No Diclofenac Sodium 75 Sodium 75 Sodium 75 MG MG MG Cyclobenzap Cyclobenzap No Cyclobenza rine HCl rine HCl chiara HCl Acetaminoph Acetaminoph No Acetaminop en-Codeine en-Codeine hen-Codein #3 #3 e #3 Gatifloxaci Gatifloxaci No Gatifloxac n n in Naproxen Naproxen No Naproxen Omeprazole Omeprazole No Omeprazole Cetirizine Cetirizine No Cetirizine HCl HCl HCl Benzonatate Benzonatate No Benzonatat e levoFLOXaci levoFLOXaci No levoFLOXac n n in Metoprolol Metoprolol No Metoprolol Succinate Succinate Succinate ER ER ER Cyclobenzap Cyclobenzap No Cyclobenza rine HCl rine HCl chiara HCl Benzonatate Benzonatate No Benzonatat e predniSONE predniSONE No predniSONE Ofloxacin Ofloxacin No Ofloxacin Rosuvastati Rosuvastati No Rosuvastat n Calcium n Calcium in Calcium Pantoprazol Pantoprazol No Pantoprazo e Sodium e Sodium le Sodium Naproxen Naproxen No Naproxen Albuterol Albuterol No Albuterol Sulfate HFA Sulfate HFA Sulfate HFA methylPREDN methylPREDN No methylPRED ISolone ISolone NISolone Promethazin Promethazin No Promethazi e-DM e-DM ne-DM Voltaren Voltaren No Voltaren Meloxicam Meloxicam No Meloxicam amLODIPine amLODIPine No amLODIPine Besylate 5 Besylate 5 Besylate 5 MG MG MG Ibuprofen Ibuprofen No Ibuprofen 600 MG 600 MG 600 MG Gabapentin Gabapentin No Gabapentin levoFLOXaci levoFLOXaci No levoFLOXac n n in guaiFENesin guaiFENesin No guaiFENesi -Codeine -Codeine n-Codeine hydrOXYzine hydrOXYzine No hydrOXYzin HCl HCl e HCl Gabapentin Gabapentin No Gabapentin Amoxicillin Amoxicillin No Amoxicilli n methylPREDN methylPREDN No methylPRED ISolone ISolone NISolone traZODone traZODone No traZODone HCl HCl HCl Flucelvax Flucelvax No Flucelvax Quadrivalen Quadrivalen Quadrivale t t nt Clarithromy Clarithromy No Clarithrom justina justina ycin Doxycycline Doxycycline No Doxycyclin Hyclate Hyclate e Hyclate Mupirocin 2 Mupirocin 2 No Mupirocin % % 2 % Metformin Metformin No Metformin HCl HCl HCl Xarelto Xarelto No Xarelto Ibuprofen Ibuprofen No Ibuprofen 600 MG 600 MG 600 MG Diclofenac Diclofenac No Diclofenac Sodium 75 Sodium 75 Sodium 75 MG MG MG Gatifloxaci Gatifloxaci No Gatifloxac n n in Acetaminoph Acetaminoph No Acetaminop en-Codeine en-Codeine hen-Codein #3 #3 e #3 Cetirizine Cetirizine No Cetirizine HCl HCl HCl Losartan Losartan No Losartan Potassium Potassium Potassium 100 MG 100 MG 100 MG Fluticasone Fluticasone No Fluticason Propionate Propionate e Propionate Metoprolol Metoprolol No Metoprolol Succinate Succinate Succinate ER ER ER traZODone traZODone No QD traZODone HCl 50 MG HCl 50 MG HCl 50 MG Sulfamethox Sulfamethox No Sulfametho azole-Trime azole-Trime xazole-Tri thoprim thoprim methoprim 800-160 MG 800-160 MG 800-160 MG Sulfamethox Sulfamethox No Sulfametho azole-Trime azole-Trime xazole-Tri thoprim thoprim methoprim 800-160 MG 800-160 MG 800-160 MG Omeprazole Omeprazole No Omeprazole Cephalexin Cephalexin No Cephalexin Tylenol Tylenol No Tylenol Cyclobenzap Cyclobenzap No Cyclobenza rine HCl rine HCl chiara HCl Clarithromy Clarithromy No Clarithrom justina justina ycin Cephalexin Cephalexin No Cephalexin Fluticasone Fluticasone No Fluticason Propionate Propionate e Propionate Naproxen Naproxen No Naproxen Metformin Metformin No Metformin HCl HCl HCl Amoxicillin Amoxicillin No Amoxicilli n Mupirocin 2 Mupirocin 2 No Mupirocin % % 2 % Omeprazole Omeprazole No Omeprazole Ofloxacin Ofloxacin No Ofloxacin guaiFENesin guaiFENesin No guaiFENesi -Codeine -Codeine n-Codeine traZODone traZODone No traZODone HCl HCl HCl Promethazin Promethazin No Promethazi e-DM e-DM ne-DM predniSONE predniSONE No predniSONE Pantoprazol Pantoprazol No Pantoprazo e Sodium e Sodium le Sodium Cetirizine Cetirizine No Cetirizine HCl HCl HCl amLODIPine amLODIPine No amLODIPine Besylate 5 Besylate 5 Besylate 5 MG MG MG Diclofenac Diclofenac No Diclofenac Sodium 75 Sodium 75 Sodium 75 MG MG MG Acetaminoph Acetaminoph No Acetaminop en-Codeine en-Codeine hen-Codein #3 #3 e #3 Rosuvastati Rosuvastati No Rosuvastat n Calcium n Calcium in Calcium Doxycycline Doxycycline No Doxycyclin Hyclate Hyclate e Hyclate Albuterol Albuterol No Albuterol Sulfate HFA Sulfate HFA Sulfate HFA Flucelvax Flucelvax No Flucelvax Quadrivalen Quadrivalen Quadrivale t t nt Losartan Losartan No Losartan Potassium Potassium Potassium 100 MG 100 MG 100 MG Benzonatate Benzonatate No Benzonatat e hydrOXYzine hydrOXYzine No hydrOXYzin HCl HCl e HCl Meloxicam Meloxicam No Meloxicam Gatifloxaci Gatifloxaci No Gatifloxac n n in levoFLOXaci levoFLOXaci No levoFLOXac n n in Metoprolol Metoprolol No Metoprolol Succinate Succinate Succinate ER ER ER methylPREDN methylPREDN No methylPRED ISolone ISolone NISolone Gabapentin Gabapentin No Gabapentin Ibuprofen Ibuprofen No Ibuprofen 600 MG 600 MG 600 MG Sulfamethox Sulfamethox No Sulfametho azole-Trime azole-Trime xazole-Tri thoprim thoprim methoprim 800-160 MG 800-160 MG 800-160 MG Cyclobenzap Cyclobenzap No Cyclobenza rine HCl rine HCl chiara HCl Clarithromy Clarithromy No Clarithrom justina justina ycin Cephalexin Cephalexin No Cephalexin Fluticasone Fluticasone No Fluticason Propionate Propionate e Propionate Naproxen Naproxen No Naproxen Metformin Metformin No Metformin HCl HCl HCl Amoxicillin Amoxicillin No Amoxicilli n Mupirocin 2 Mupirocin 2 No Mupirocin % % 2 % Omeprazole Omeprazole No Omeprazole Ofloxacin Ofloxacin No Ofloxacin guaiFENesin guaiFENesin No guaiFENesi -Codeine -Codeine n-Codeine traZODone traZODone No traZODone HCl HCl HCl Promethazin Promethazin No Promethazi e-DM e-DM ne-DM predniSONE predniSONE No predniSONE levoFLOXaci levoFLOXaci No levoFLOXac n n in Gatifloxaci Gatifloxaci No Gatifloxac n n in Omeprazole Omeprazole No Omeprazole Ibuprofen Ibuprofen No Ibuprofen 600 MG 600 MG 600 MG hydrOXYzine hydrOXYzine No hydrOXYzin HCl HCl e HCl Pantoprazol Pantoprazol No Pantoprazo e Sodium e Sodium le Sodium Cyclobenzap Cyclobenzap No Cyclobenza rine HCl rine HCl chiara HCl methylPREDN methylPREDN No methylPRED ISolone ISolone NISolone Albuterol Albuterol No Albuterol Sulfate HFA Sulfate HFA Sulfate HFA Losartan Losartan No Losartan Potassium Potassium Potassium 100 MG 100 MG 100 MG Clarithromy Clarithromy No Clarithrom justina justina ycin amLODIPine amLODIPine No amLODIPine Besylate 5 Besylate 5 Besylate 5 MG MG MG Amoxicillin Amoxicillin No Amoxicilli n Acetaminoph Acetaminoph No Acetaminop en-Codeine en-Codeine hen-Codein #3 #3 e #3 Fluticasone Fluticasone No Fluticason Propionate Propionate e Propionate Gabapentin Gabapentin No Gabapentin Rosuvastati Rosuvastati No Rosuvastat n Calcium n Calcium in Calcium Mupirocin 2 Mupirocin 2 No Mupirocin % % 2 % Diclofenac Diclofenac No Diclofenac Sodium 75 Sodium 75 Sodium 75 MG MG MG Metformin Metformin No Metformin HCl HCl HCl Benzonatate Benzonatate No Benzonatat e Sulfamethox Sulfamethox No Sulfametho azole-Trime azole-Trime xazole-Tri thoprim thoprim methoprim 800-160 MG 800-160 MG 800-160 MG Meloxicam Meloxicam No Meloxicam Naproxen Naproxen No Naproxen Cetirizine Cetirizine No Cetirizine HCl HCl HCl Flucelvax Flucelvax No Flucelvax Quadrivalen Quadrivalen Quadrivale t t nt guaiFENesin guaiFENesin No guaiFENesi -Codeine -Codeine n-Codeine Metoprolol Metoprolol No Metoprolol Succinate Succinate Succinate ER ER ER Cephalexin Cephalexin No Cephalexin traZODone traZODone No traZODone HCl HCl HCl Doxycycline Doxycycline No Doxycyclin Hyclate Hyclate e Hyclate predniSONE predniSONE No predniSONE Promethazin Promethazin No Promethazi e-DM e-DM ne-DM Ofloxacin Ofloxacin No Ofloxacin levoFLOXaci levoFLOXaci No levoFLOXac n n in Gatifloxaci Gatifloxaci No Gatifloxac n n in Omeprazole Omeprazole No Omeprazole Ibuprofen Ibuprofen No Ibuprofen 600 MG 600 MG 600 MG hydrOXYzine hydrOXYzine No hydrOXYzin HCl HCl e HCl Pantoprazol Pantoprazol No Pantoprazo e Sodium e Sodium le Sodium Cyclobenzap Cyclobenzap No Cyclobenza rine HCl rine HCl chiara HCl methylPREDN methylPREDN No methylPRED ISolone ISolone NISolone Albuterol Albuterol No Albuterol Sulfate HFA Sulfate HFA Sulfate HFA Losartan Losartan No Losartan Potassium Potassium Potassium 100 MG 100 MG 100 MG Clarithromy Clarithromy No Clarithrom justina justina ycin amLODIPine amLODIPine No amLODIPine Besylate 5 Besylate 5 Besylate 5 MG MG MG Amoxicillin Amoxicillin No Amoxicilli n Acetaminoph Acetaminoph No Acetaminop en-Codeine en-Codeine hen-Codein #3 #3 e #3 Fluticasone Fluticasone No Fluticason Propionate Propionate e Propionate Gabapentin Gabapentin No Gabapentin Rosuvastati Rosuvastati No Rosuvastat n Calcium n Calcium in Calcium Mupirocin 2 Mupirocin 2 No Mupirocin % % 2 % Diclofenac Diclofenac No Diclofenac Sodium 75 Sodium 75 Sodium 75 MG MG MG Metformin Metformin No Metformin HCl HCl HCl Benzonatate Benzonatate No Benzonatat e Sulfamethox Sulfamethox No Sulfametho azole-Trime azole-Trime xazole-Tri thoprim thoprim methoprim 800-160 MG 800-160 MG 800-160 MG Meloxicam Meloxicam No Meloxicam Naproxen Naproxen No Naproxen Cetirizine Cetirizine No Cetirizine HCl HCl HCl Flucelvax Flucelvax No Flucelvax Quadrivalen Quadrivalen Quadrivale t t nt guaiFENesin guaiFENesin No guaiFENesi -Codeine -Codeine n-Codeine Metoprolol Metoprolol No Metoprolol Succinate Succinate Succinate ER ER ER Cephalexin Cephalexin No Cephalexin traZODone traZODone No traZODone HCl HCl HCl Doxycycline Doxycycline No Doxycyclin Hyclate Hyclate e Hyclate predniSONE predniSONE No predniSONE Promethazin Promethazin No Promethazi e-DM e-DM ne-DM Ofloxacin Ofloxacin No Ofloxacin levoFLOXaci levoFLOXaci No levoFLOXac n n in Gatifloxaci Gatifloxaci No Gatifloxac n n in Omeprazole Omeprazole No Omeprazole Ibuprofen Ibuprofen No Ibuprofen 600 MG 600 MG 600 MG hydrOXYzine hydrOXYzine No hydrOXYzin HCl HCl e HCl Pantoprazol Pantoprazol No Pantoprazo e Sodium e Sodium le Sodium Cyclobenzap Cyclobenzap No Cyclobenza rine HCl rine HCl chiara HCl methylPREDN methylPREDN No methylPRED ISolone ISolone NISolone Albuterol Albuterol No Albuterol Sulfate HFA Sulfate HFA Sulfate HFA Losartan Losartan No Losartan Potassium Potassium Potassium 100 MG 100 MG 100 MG Clarithromy Clarithromy No Clarithrom justina justina ycin amLODIPine amLODIPine No amLODIPine Besylate 5 Besylate 5 Besylate 5 MG MG MG Amoxicillin Amoxicillin No Amoxicilli n Acetaminoph Acetaminoph No Acetaminop en-Codeine en-Codeine hen-Codein #3 #3 e #3 Fluticasone Fluticasone No Fluticason Propionate Propionate e Propionate Gabapentin Gabapentin No Gabapentin Rosuvastati Rosuvastati No Rosuvastat n Calcium n Calcium in Calcium Mupirocin 2 Mupirocin 2 No Mupirocin % % 2 % Diclofenac Diclofenac No Diclofenac Sodium 75 Sodium 75 Sodium 75 MG MG MG Metformin Metformin No Metformin HCl HCl HCl Benzonatate Benzonatate No Benzonatat e Sulfamethox Sulfamethox No Sulfametho azole-Trime azole-Trime xazole-Tri thoprim thoprim methoprim 800-160 MG 800-160 MG 800-160 MG Meloxicam Meloxicam No Meloxicam Naproxen Naproxen No Naproxen Cetirizine Cetirizine No Cetirizine HCl HCl HCl Flucelvax Flucelvax No Flucelvax Quadrivalen Quadrivalen Quadrivale t t nt guaiFENesin guaiFENesin No guaiFENesi -Codeine -Codeine n-Codeine Metoprolol Metoprolol No Metoprolol Succinate Succinate Succinate ER ER ER Cephalexin Cephalexin No Cephalexin traZODone traZODone No traZODone HCl HCl HCl Doxycycline Doxycycline No Doxycyclin Hyclate Hyclate e Hyclate predniSONE predniSONE No predniSONE Promethazin Promethazin No Promethazi e-DM e-DM ne-DM Ofloxacin Ofloxacin No Ofloxacin levoFLOXaci levoFLOXaci No levoFLOXac n n in Gatifloxaci Gatifloxaci No Gatifloxac n n in Omeprazole Omeprazole No Omeprazole Ibuprofen Ibuprofen No Ibuprofen 600 MG 600 MG 600 MG hydrOXYzine hydrOXYzine No hydrOXYzin HCl HCl e HCl Pantoprazol Pantoprazol No Pantoprazo e Sodium e Sodium le Sodium Cyclobenzap Cyclobenzap No Cyclobenza rine HCl rine HCl chiara HCl methylPREDN methylPREDN No methylPRED ISolone ISolone NISolone Albuterol Albuterol No Albuterol Sulfate HFA Sulfate HFA Sulfate HFA Losartan Losartan No Losartan Potassium Potassium Potassium 100 MG 100 MG 100 MG Clarithromy Clarithromy No Clarithrom justina justina ycin amLODIPine amLODIPine No amLODIPine Besylate 5 Besylate 5 Besylate 5 MG MG MG Amoxicillin Amoxicillin No Amoxicilli n Acetaminoph Acetaminoph No Acetaminop en-Codeine en-Codeine hen-Codein #3 #3 e #3 Fluticasone Fluticasone No Fluticason Propionate Propionate e Propionate Gabapentin Gabapentin No Gabapentin Rosuvastati Rosuvastati No Rosuvastat n Calcium n Calcium in Calcium Mupirocin 2 Mupirocin 2 No Mupirocin % % 2 % Diclofenac Diclofenac No Diclofenac Sodium 75 Sodium 75 Sodium 75 MG MG MG Metformin Metformin No Metformin HCl HCl HCl Benzonatate Benzonatate No Benzonatat e Sulfamethox Sulfamethox No Sulfametho azole-Trime azole-Trime xazole-Tri thoprim thoprim methoprim 800-160 MG 800-160 MG 800-160 MG Meloxicam Meloxicam No Meloxicam Naproxen Naproxen No Naproxen Cetirizine Cetirizine No Cetirizine HCl HCl HCl Flucelvax Flucelvax No Flucelvax Quadrivalen Quadrivalen Quadrivale t t nt guaiFENesin guaiFENesin No guaiFENesi -Codeine -Codeine n-Codeine Metoprolol Metoprolol No Metoprolol Succinate Succinate Succinate ER ER ER Cephalexin Cephalexin No Cephalexin traZODone traZODone No traZODone HCl HCl HCl Doxycycline Doxycycline No Doxycyclin Hyclate Hyclate e Hyclate predniSONE predniSONE No predniSONE Promethazin Promethazin No Promethazi e-DM e-DM ne-DM Ofloxacin Ofloxacin No Ofloxacin levoFLOXaci levoFLOXaci No levoFLOXac n n in Ibuprofen Ibuprofen No Ibuprofen 600 MG 600 MG 600 MG Flucelvax Flucelvax No Flucelvax Quadrivalen Quadrivalen Quadrivale t t nt Rosuvastati Rosuvastati No Rosuvastat n Calcium n Calcium in Calcium Pantoprazol Pantoprazol No Pantoprazo e Sodium e Sodium le Sodium Losartan Losartan No Losartan Potassium Potassium Potassium 100 MG 100 MG 100 MG Omeprazole Omeprazole No Omeprazole Albuterol Albuterol No Albuterol Sulfate HFA Sulfate HFA Sulfate HFA Gatifloxaci Gatifloxaci No Gatifloxac n n in hydrOXYzine hydrOXYzine No hydrOXYzin HCl HCl e HCl methylPREDN methylPREDN No methylPRED ISolone ISolone NISolone Acetaminoph Acetaminoph No Acetaminop en-Codeine en-Codeine hen-Codein #3 #3 e #3 Cyclobenzap Cyclobenzap No Cyclobenza rine HCl rine HCl chiara HCl Clarithromy Clarithromy No Clarithrom justina justina ycin Amoxicillin Amoxicillin No Amoxicilli n Fluticasone Fluticasone No Fluticason Propionate Propionate e Propionate Gabapentin Gabapentin No Gabapentin Mupirocin 2 Mupirocin 2 No Mupirocin % % 2 % Diclofenac Diclofenac No Diclofenac Sodium 75 Sodium 75 Sodium 75 MG MG MG Metformin Metformin No Metformin HCl HCl HCl Benzonatate Benzonatate No Benzonatat e Sulfamethox Sulfamethox No Sulfametho azole-Trime azole-Trime xazole-Tri thoprim thoprim methoprim 800-160 MG 800-160 MG 800-160 MG Meloxicam Meloxicam No Meloxicam Naproxen Naproxen No Naproxen Cetirizine Cetirizine No Cetirizine HCl HCl HCl amLODIPine amLODIPine No amLODIPine Besylate 5 Besylate 5 Besylate 5 MG MG MG guaiFENesin guaiFENesin No guaiFENesi -Codeine -Codeine n-Codeine Metoprolol Metoprolol No Metoprolol Succinate Succinate Succinate ER ER ER Cephalexin Cephalexin No Cephalexin traZODone traZODone No traZODone HCl HCl HCl Doxycycline Doxycycline No Doxycyclin Hyclate Hyclate e Hyclate predniSONE predniSONE No predniSONE Promethazin Promethazin No Promethazi e-DM e-DM ne-DM Ofloxacin Ofloxacin No Ofloxacin levoFLOXaci levoFLOXaci No levoFLOXac n n in Ibuprofen Ibuprofen No Ibuprofen 600 MG 600 MG 600 MG Flucelvax Flucelvax No Flucelvax Quadrivalen Quadrivalen Quadrivale t t nt Rosuvastati Rosuvastati No Rosuvastat n Calcium n Calcium in Calcium Pantoprazol Pantoprazol No Pantoprazo e Sodium e Sodium le Sodium Losartan Losartan No Losartan Potassium Potassium Potassium 100 MG 100 MG 100 MG Omeprazole Omeprazole No Omeprazole Albuterol Albuterol No Albuterol Sulfate HFA Sulfate HFA Sulfate HFA Gatifloxaci Gatifloxaci No Gatifloxac n n in hydrOXYzine hydrOXYzine No hydrOXYzin HCl HCl e HCl methylPREDN methylPREDN No methylPRED ISolone ISolone NISolone Acetaminoph Acetaminoph No Acetaminop en-Codeine en-Codeine hen-Codein #3 #3 e #3 Cyclobenzap Cyclobenzap No Cyclobenza rine HCl rine HCl chiara HCl Clarithromy Clarithromy No Clarithrom justina justina ycin Amoxicillin Amoxicillin No Amoxicilli n Fluticasone Fluticasone No Fluticason Propionate Propionate e Propionate Gabapentin Gabapentin No Gabapentin Mupirocin 2 Mupirocin 2 No Mupirocin % % 2 % Diclofenac Diclofenac No Diclofenac Sodium 75 Sodium 75 Sodium 75 MG MG MG Metformin Metformin No Metformin HCl HCl HCl Benzonatate Benzonatate No Benzonatat e Sulfamethox Sulfamethox No Sulfametho azole-Trime azole-Trime xazole-Tri thoprim thoprim methoprim 800-160 MG 800-160 MG 800-160 MG Meloxicam Meloxicam No Meloxicam Naproxen Naproxen No Naproxen Cetirizine Cetirizine No Cetirizine HCl HCl HCl amLODIPine amLODIPine No amLODIPine Besylate 5 Besylate 5 Besylate 5 MG MG MG guaiFENesin guaiFENesin No guaiFENesi -Codeine -Codeine n-Codeine Metoprolol Metoprolol No Metoprolol Succinate Succinate Succinate ER ER ER Cephalexin Cephalexin No Cephalexin traZODone traZODone No traZODone HCl HCl HCl Doxycycline Doxycycline No Doxycyclin Hyclate Hyclate e Hyclate predniSONE predniSONE No predniSONE Promethazin Promethazin No Promethazi e-DM e-DM ne-DM Ofloxacin Ofloxacin No Ofloxacin levoFLOXaci levoFLOXaci No levoFLOXac n n in Ibuprofen Ibuprofen No Ibuprofen 600 MG 600 MG 600 MG Flucelvax Flucelvax No Flucelvax Quadrivalen Quadrivalen Quadrivale t t nt Rosuvastati Rosuvastati No Rosuvastat n Calcium n Calcium in Calcium Pantoprazol Pantoprazol No Pantoprazo e Sodium e Sodium le Sodium Losartan Losartan No Losartan Potassium Potassium Potassium 100 MG 100 MG 100 MG Omeprazole Omeprazole No Omeprazole Albuterol Albuterol No Albuterol Sulfate HFA Sulfate HFA Sulfate HFA Gatifloxaci Gatifloxaci No Gatifloxac n n in hydrOXYzine hydrOXYzine No hydrOXYzin HCl HCl e HCl methylPREDN methylPREDN No methylPRED ISolone ISolone NISolone Acetaminoph Acetaminoph No Acetaminop en-Codeine en-Codeine hen-Codein #3 #3 e #3 Cyclobenzap Cyclobenzap No Cyclobenza rine HCl rine HCl chiara HCl Clarithromy Clarithromy No Clarithrom justina justina ycin Amoxicillin Amoxicillin No Amoxicilli n Fluticasone Fluticasone No Fluticason Propionate Propionate e Propionate Gabapentin Gabapentin No Gabapentin Mupirocin 2 Mupirocin 2 No Mupirocin % % 2 % Diclofenac Diclofenac No Diclofenac Sodium 75 Sodium 75 Sodium 75 MG MG MG Metformin Metformin No Metformin HCl HCl HCl Benzonatate Benzonatate No Benzonatat e Sulfamethox Sulfamethox No Sulfametho azole-Trime azole-Trime xazole-Tri thoprim thoprim methoprim 800-160 MG 800-160 MG 800-160 MG Meloxicam Meloxicam No Meloxicam Naproxen Naproxen No Naproxen Cetirizine Cetirizine No Cetirizine HCl HCl HCl amLODIPine amLODIPine No amLODIPine Besylate 5 Besylate 5 Besylate 5 MG MG MG guaiFENesin guaiFENesin No guaiFENesi -Codeine -Codeine n-Codeine Metoprolol Metoprolol No Metoprolol Succinate Succinate Succinate ER ER ER Cephalexin Cephalexin No Cephalexin traZODone traZODone No traZODone HCl HCl HCl Doxycycline Doxycycline No Doxycyclin Hyclate Hyclate e Hyclate predniSONE predniSONE No predniSONE Promethazin Promethazin No Promethazi e-DM e-DM ne-DM Ofloxacin Ofloxacin No Ofloxacin levoFLOXaci levoFLOXaci No levoFLOXac n n in Ibuprofen Ibuprofen No Ibuprofen 600 MG 600 MG 600 MG Flucelvax Flucelvax No Flucelvax Quadrivalen Quadrivalen Quadrivale t t nt Rosuvastati Rosuvastati No Rosuvastat n Calcium n Calcium in Calcium Pantoprazol Pantoprazol No Pantoprazo e Sodium e Sodium le Sodium Losartan Losartan No Losartan Potassium Potassium Potassium 100 MG 100 MG 100 MG Omeprazole Omeprazole No Omeprazole Albuterol Albuterol No Albuterol Sulfate HFA Sulfate HFA Sulfate HFA Gatifloxaci Gatifloxaci No Gatifloxac n n in hydrOXYzine hydrOXYzine No hydrOXYzin HCl HCl e HCl methylPREDN methylPREDN No methylPRED ISolone ISolone NISolone Acetaminoph Acetaminoph No Acetaminop en-Codeine en-Codeine hen-Codein #3 #3 e #3 Cyclobenzap Cyclobenzap No Cyclobenza rine HCl rine HCl chiara HCl Clarithromy Clarithromy No Clarithrom justina justina ycin Amoxicillin Amoxicillin No Amoxicilli n Fluticasone Fluticasone No Fluticason Propionate Propionate e Propionate Gabapentin Gabapentin No Gabapentin Mupirocin 2 Mupirocin 2 No Mupirocin % % 2 % Diclofenac Diclofenac No Diclofenac Sodium 75 Sodium 75 Sodium 75 MG MG MG Metformin Metformin No Metformin HCl HCl HCl Benzonatate Benzonatate No Benzonatat e Sulfamethox Sulfamethox No Sulfametho azole-Trime azole-Trime xazole-Tri thoprim thoprim methoprim 800-160 MG 800-160 MG 800-160 MG Meloxicam Meloxicam No Meloxicam Naproxen Naproxen No Naproxen Cetirizine Cetirizine No Cetirizine HCl HCl HCl amLODIPine amLODIPine No amLODIPine Besylate 5 Besylate 5 Besylate 5 MG MG MG guaiFENesin guaiFENesin No guaiFENesi -Codeine -Codeine n-Codeine Metoprolol Metoprolol No Metoprolol Succinate Succinate Succinate ER ER ER Cephalexin Cephalexin No Cephalexin traZODone traZODone No traZODone HCl HCl HCl Doxycycline Doxycycline No Doxycyclin Hyclate Hyclate e Hyclate predniSONE predniSONE No predniSONE Promethazin Promethazin No Promethazi e-DM e-DM ne-DM Ofloxacin Ofloxacin No Ofloxacin Diclofenac Diclofenac No Diclofenac Sodium 75 Sodium 75 Sodium 75 MG MG MG Fluticasone Fluticasone No Fluticason Propionate Propionate e Propionate Xarelto Xarelto No Xarelto Acetaminoph Acetaminoph No Acetaminop en-Codeine en-Codeine hen-Codein #3 #3 e #3 Cetirizine Cetirizine No Cetirizine HCl HCl HCl Doxycycline Doxycycline No Doxycyclin Hyclate Hyclate e Hyclate amLODIPine amLODIPine No amLODIPine Besylate 5 Besylate 5 Besylate 5 MG MG MG Ibuprofen Ibuprofen No Ibuprofen 600 MG 600 MG 600 MG Meloxicam Meloxicam No Meloxicam Cyclobenzap Cyclobenzap No Cyclobenza rine HCl rine HCl chiara HCl Benzonatate Benzonatate No Benzonatat e hydrOXYzine hydrOXYzine No hydrOXYzin HCl HCl e HCl Flucelvax Flucelvax No Flucelvax Quadrivalen Quadrivalen Quadrivale t t nt Rosuvastati Rosuvastati No Rosuvastat n Calcium n Calcium in Calcium Albuterol Albuterol No Albuterol Sulfate HFA Sulfate HFA Sulfate HFA Amoxicillin Amoxicillin No Amoxicilli n Losartan Losartan No Losartan Potassium Potassium Potassium 100 MG 100 MG 100 MG levoFLOXaci levoFLOXaci No levoFLOXac n n in Pantoprazol Pantoprazol No Pantoprazo e Sodium e Sodium le Sodium Cephalexin Cephalexin No Cephalexin methylPREDN methylPREDN No methylPRED ISolone ISolone NISolone Clarithromy Clarithromy No Clarithrom justina justina ycin Gatifloxaci Gatifloxaci No Gatifloxac n n in Naproxen Naproxen No Naproxen Sulfamethox Sulfamethox No Sulfametho azole-Trime azole-Trime xazole-Tri thoprim thoprim methoprim 800-160 MG 800-160 MG 800-160 MG Metoprolol Metoprolol No Metoprolol Succinate Succinate Succinate ER ER ER guaiFENesin guaiFENesin No guaiFENesi -Codeine -Codeine n-Codeine Metformin Metformin No Metformin HCl HCl HCl Mupirocin 2 Mupirocin 2 No Mupirocin % % 2 % Ofloxacin Ofloxacin No Ofloxacin traZODone traZODone No traZODone HCl HCl HCl Gabapentin Gabapentin No Gabapentin predniSONE predniSONE No predniSONE Omeprazole Omeprazole No Omeprazole Promethazin Promethazin No Promethazi e-DM e-DM ne-DM Fluticasone Fluticasone No Fluticason Propionate Propionate e Propionate guaiFENesin guaiFENesin No guaiFENesi -Codeine -Codeine n-Codeine Metformin Metformin No Metformin HCl HCl HCl Gabapentin Gabapentin No Gabapentin Promethazin Promethazin No Promethazi e-DM e-DM ne-DM Meloxicam Meloxicam No Meloxicam Sulfamethox Sulfamethox No Sulfametho azole-Trime azole-Trime xazole-Tri thoprim thoprim methoprim 800-160 MG 800-160 MG 800-160 MG Flucelvax Flucelvax No Flucelvax Quadrivalen Quadrivalen Quadrivale t t nt Diclofenac Diclofenac No Diclofenac Sodium 75 Sodium 75 Sodium 75 MG MG MG traZODone traZODone No traZODone HCl HCl HCl Amoxicillin Amoxicillin No Amoxicilli n methylPREDN methylPREDN No methylPRED ISolone ISolone NISolone Losartan Losartan No Losartan Potassium Potassium Potassium 100 MG 100 MG 100 MG Doxycycline Doxycycline No Doxycyclin Hyclate Hyclate e Hyclate Mupirocin 2 Mupirocin 2 No Mupirocin % % 2 % Pantoprazol Pantoprazol No Pantoprazo e Sodium e Sodium le Sodium Clarithromy Clarithromy No Clarithrom justina justina ycin Cephalexin Cephalexin No Cephalexin predniSONE predniSONE No predniSONE Cetirizine Cetirizine No Cetirizine HCl HCl HCl Albuterol Albuterol No Albuterol Sulfate HFA Sulfate HFA Sulfate HFA Metoprolol Metoprolol No Metoprolol Succinate Succinate Succinate ER ER ER Omeprazole Omeprazole No Omeprazole levoFLOXaci levoFLOXaci No levoFLOXac n n in Benzonatate Benzonatate No Benzonatat e Rosuvastati Rosuvastati No Rosuvastat n Calcium n Calcium in Calcium Ofloxacin Ofloxacin No Ofloxacin Ibuprofen Ibuprofen No Ibuprofen 600 MG 600 MG 600 MG hydrOXYzine hydrOXYzine No hydrOXYzin HCl HCl e HCl Gatifloxaci Gatifloxaci No Gatifloxac n n in Xarelto Xarelto No Xarelto amLODIPine amLODIPine No amLODIPine Besylate 5 Besylate 5 Besylate 5 MG MG MG Acetaminoph Acetaminoph No Acetaminop en-Codeine en-Codeine hen-Codein #3 #3 e #3 Cyclobenzap Cyclobenzap No Cyclobenza rine HCl rine HCl chiara HCl Naproxen Naproxen No Naproxen Fluticasone Fluticasone No Fluticason Propionate Propionate e Propionate guaiFENesin guaiFENesin No guaiFENesi -Codeine -Codeine n-Codeine Metformin Metformin No Metformin HCl HCl HCl Gabapentin Gabapentin No Gabapentin Promethazin Promethazin No Promethazi e-DM e-DM ne-DM Meloxicam Meloxicam No Meloxicam Sulfamethox Sulfamethox No Sulfametho azole-Trime azole-Trime xazole-Tri thoprim thoprim methoprim 800-160 MG 800-160 MG 800-160 MG Flucelvax Flucelvax No Flucelvax Quadrivalen Quadrivalen Quadrivale t t nt Diclofenac Diclofenac No Diclofenac Sodium 75 Sodium 75 Sodium 75 MG MG MG traZODone traZODone No traZODone HCl HCl HCl Amoxicillin Amoxicillin No Amoxicilli n methylPREDN methylPREDN No methylPRED ISolone ISolone NISolone Losartan Losartan No Losartan Potassium Potassium Potassium 100 MG 100 MG 100 MG Doxycycline Doxycycline No Doxycyclin Hyclate Hyclate e Hyclate Mupirocin 2 Mupirocin 2 No Mupirocin % % 2 % Pantoprazol Pantoprazol No Pantoprazo e Sodium e Sodium le Sodium Clarithromy Clarithromy No Clarithrom justina justina ycin Cephalexin Cephalexin No Cephalexin predniSONE predniSONE No predniSONE Cetirizine Cetirizine No Cetirizine HCl HCl HCl Albuterol Albuterol No Albuterol Sulfate HFA Sulfate HFA Sulfate HFA Metoprolol Metoprolol No Metoprolol Succinate Succinate Succinate ER ER ER Omeprazole Omeprazole No Omeprazole levoFLOXaci levoFLOXaci No levoFLOXac n n in Benzonatate Benzonatate No Benzonatat e Rosuvastati Rosuvastati No Rosuvastat n Calcium n Calcium in Calcium Ofloxacin Ofloxacin No Ofloxacin Ibuprofen Ibuprofen No Ibuprofen 600 MG 600 MG 600 MG hydrOXYzine hydrOXYzine No hydrOXYzin HCl HCl e HCl Gatifloxaci Gatifloxaci No Gatifloxac n n in Xarelto Xarelto No Xarelto amLODIPine amLODIPine No amLODIPine Besylate 5 Besylate 5 Besylate 5 MG MG MG Acetaminoph Acetaminoph No Acetaminop en-Codeine en-Codeine hen-Codein #3 #3 e #3 Cyclobenzap Cyclobenzap No Cyclobenza rine HCl rine HCl chiara HCl Naproxen Naproxen No Naproxen Fluticasone Fluticasone No Fluticason Propionate Propionate e Propionate guaiFENesin guaiFENesin No guaiFENesi -Codeine -Codeine n-Codeine Metformin Metformin No Metformin HCl HCl HCl Gabapentin Gabapentin No Gabapentin Promethazin Promethazin No Promethazi e-DM e-DM ne-DM Meloxicam Meloxicam No Meloxicam Sulfamethox Sulfamethox No Sulfametho azole-Trime azole-Trime xazole-Tri thoprim thoprim methoprim 800-160 MG 800-160 MG 800-160 MG Flucelvax Flucelvax No Flucelvax Quadrivalen Quadrivalen Quadrivale t t nt Diclofenac Diclofenac No Diclofenac Sodium 75 Sodium 75 Sodium 75 MG MG MG traZODone traZODone No traZODone HCl HCl HCl Amoxicillin Amoxicillin No Amoxicilli n methylPREDN methylPREDN No methylPRED ISolone ISolone NISolone Losartan Losartan No Losartan Potassium Potassium Potassium 100 MG 100 MG 100 MG Doxycycline Doxycycline No Doxycyclin Hyclate Hyclate e Hyclate Mupirocin 2 Mupirocin 2 No Mupirocin % % 2 % Pantoprazol Pantoprazol No Pantoprazo e Sodium e Sodium le Sodium Clarithromy Clarithromy No Clarithrom justina justina ycin Cephalexin Cephalexin No Cephalexin predniSONE predniSONE No predniSONE Cetirizine Cetirizine No Cetirizine HCl HCl HCl Albuterol Albuterol No Albuterol Sulfate HFA Sulfate HFA Sulfate HFA Metoprolol Metoprolol No Metoprolol Succinate Succinate Succinate ER ER ER Omeprazole Omeprazole No Omeprazole levoFLOXaci levoFLOXaci No levoFLOXac n n in Benzonatate Benzonatate No Benzonatat e Rosuvastati Rosuvastati No Rosuvastat n Calcium n Calcium in Calcium Ofloxacin Ofloxacin No Ofloxacin Ibuprofen Ibuprofen No Ibuprofen 600 MG 600 MG 600 MG hydrOXYzine hydrOXYzine No hydrOXYzin HCl HCl e HCl Gatifloxaci Gatifloxaci No Gatifloxac n n in Xarelto Xarelto No Xarelto amLODIPine amLODIPine No amLODIPine Besylate 5 Besylate 5 Besylate 5 MG MG MG Acetaminoph Acetaminoph No Acetaminop en-Codeine en-Codeine hen-Codein #3 #3 e #3 Cyclobenzap Cyclobenzap No Cyclobenza rine HCl rine HCl chiara HCl Naproxen Naproxen No Naproxen Fluticasone Fluticasone No Fluticason Propionate Propionate e Propionate guaiFENesin guaiFENesin No guaiFENesi -Codeine -Codeine n-Codeine Metformin Metformin No Metformin HCl HCl HCl Gabapentin Gabapentin No Gabapentin Promethazin Promethazin No Promethazi e-DM e-DM ne-DM Meloxicam Meloxicam No Meloxicam Sulfamethox Sulfamethox No Sulfametho azole-Trime azole-Trime xazole-Tri thoprim thoprim methoprim 800-160 MG 800-160 MG 800-160 MG Flucelvax Flucelvax No Flucelvax Quadrivalen Quadrivalen Quadrivale t t nt Diclofenac Diclofenac No Diclofenac Sodium 75 Sodium 75 Sodium 75 MG MG MG traZODone traZODone No traZODone HCl HCl HCl Amoxicillin Amoxicillin No Amoxicilli n methylPREDN methylPREDN No methylPRED ISolone ISolone NISolone Losartan Losartan No Losartan Potassium Potassium Potassium 100 MG 100 MG 100 MG Doxycycline Doxycycline No Doxycyclin Hyclate Hyclate e Hyclate Mupirocin 2 Mupirocin 2 No Mupirocin % % 2 % Pantoprazol Pantoprazol No Pantoprazo e Sodium e Sodium le Sodium Clarithromy Clarithromy No Clarithrom justina justina ycin Cephalexin Cephalexin No Cephalexin predniSONE predniSONE No predniSONE Cetirizine Cetirizine No Cetirizine HCl HCl HCl Albuterol Albuterol No Albuterol Sulfate HFA Sulfate HFA Sulfate HFA Metoprolol Metoprolol No Metoprolol Succinate Succinate Succinate ER ER ER Omeprazole Omeprazole No Omeprazole levoFLOXaci levoFLOXaci No levoFLOXac n n in Benzonatate Benzonatate No Benzonatat e Rosuvastati Rosuvastati No Rosuvastat n Calcium n Calcium in Calcium Ofloxacin Ofloxacin No Ofloxacin Ibuprofen Ibuprofen No Ibuprofen 600 MG 600 MG 600 MG hydrOXYzine hydrOXYzine No hydrOXYzin HCl HCl e HCl Gatifloxaci Gatifloxaci No Gatifloxac n n in Xarelto Xarelto No Xarelto amLODIPine amLODIPine No amLODIPine Besylate 5 Besylate 5 Besylate 5 MG MG MG Acetaminoph Acetaminoph No Acetaminop en-Codeine en-Codeine hen-Codein #3 #3 e #3 Cyclobenzap Cyclobenzap No Cyclobenza rine HCl rine HCl chiara HCl Naproxen Naproxen No Naproxen Fluticasone Fluticasone No Fluticason Propionate Propionate e Propionate Gabapentin Gabapentin No Gabapentin Promethazin Promethazin No Promethazi e-DM e-DM ne-DM Metformin Metformin No Metformin HCl HCl HCl Ofloxacin Ofloxacin No Ofloxacin Ibuprofen Ibuprofen No Ibuprofen 600 MG 600 MG 600 MG Meloxicam Meloxicam No Meloxicam traZODone traZODone No traZODone HCl HCl HCl Flucelvax Flucelvax No Flucelvax Quadrivalen Quadrivalen Quadrivale t t nt Diclofenac Diclofenac No Diclofenac Sodium 75 Sodium 75 Sodium 75 MG MG MG guaiFENesin guaiFENesin No guaiFENesi -Codeine -Codeine n-Codeine Amoxicillin Amoxicillin No Amoxicilli n Mupirocin 2 Mupirocin 2 No Mupirocin % % 2 % Losartan Losartan No Losartan Potassium Potassium Potassium 100 MG 100 MG 100 MG Doxycycline Doxycycline No Doxycyclin Hyclate Hyclate e Hyclate Sulfamethox Sulfamethox No Sulfametho azole-Trime azole-Trime xazole-Tri thoprim thoprim methoprim 800-160 MG 800-160 MG 800-160 MG Pantoprazol Pantoprazol No Pantoprazo e Sodium e Sodium le Sodium Clarithromy Clarithromy No Clarithrom justina justina ycin methylPREDN methylPREDN No methylPRED ISolone ISolone NISolone predniSONE predniSONE No predniSONE Cetirizine Cetirizine No Cetirizine HCl HCl HCl Albuterol Albuterol No Albuterol Sulfate HFA Sulfate HFA Sulfate HFA Metoprolol Metoprolol No Metoprolol Succinate Succinate Succinate ER ER ER levoFLOXaci levoFLOXaci No levoFLOXac n n in Benzonatate Benzonatate No Benzonatat e Rosuvastati Rosuvastati No Rosuvastat n Calcium n Calcium in Calcium Omeprazole Omeprazole No Omeprazole Cephalexin Cephalexin No Cephalexin hydrOXYzine hydrOXYzine No hydrOXYzin HCl HCl e HCl Gatifloxaci Gatifloxaci No Gatifloxac n n in Xarelto Xarelto No Xarelto amLODIPine amLODIPine No amLODIPine Besylate 5 Besylate 5 Besylate 5 MG MG MG Acetaminoph Acetaminoph No Acetaminop en-Codeine en-Codeine hen-Codein #3 #3 e #3 Cyclobenzap Cyclobenzap No Cyclobenza rine HCl rine HCl chiara HCl Naproxen Naproxen No Naproxen Meloxicam Meloxicam No Meloxicam Losartan Losartan No Losartan Potassium Potassium Potassium 100 MG 100 MG 100 MG Cyclobenzap Cyclobenzap No Cyclobenza rine HCl rine HCl chiara HCl Pantoprazol Pantoprazol No Pantoprazo e Sodium e Sodium le Sodium traZODone traZODone No traZODone HCl HCl HCl amLODIPine amLODIPine No amLODIPine Besylate 5 Besylate 5 Besylate 5 MG MG MG Ibuprofen Ibuprofen No Ibuprofen 600 MG 600 MG 600 MG Benzonatate Benzonatate No Benzonatat e predniSONE predniSONE No predniSONE hydrOXYzine hydrOXYzine No hydrOXYzin HCl HCl e HCl Amoxicillin Amoxicillin No Amoxicilli n Ofloxacin Ofloxacin No Ofloxacin Albuterol Albuterol No Albuterol Sulfate HFA Sulfate HFA Sulfate HFA Promethazin Promethazin No Promethazi e-DM e-DM ne-DM Clarithromy Clarithromy No Clarithrom justina justina ycin levoFLOXaci levoFLOXaci No levoFLOXac n n in guaiFENesin guaiFENesin No guaiFENesi -Codeine -Codeine n-Codeine Gatifloxaci Gatifloxaci No Gatifloxac n n in Doxycycline Doxycycline No Doxycyclin Hyclate Hyclate e Hyclate Mupirocin 2 Mupirocin 2 No Mupirocin % % 2 % Fluticasone Fluticasone No Fluticason Propionate Propionate e Propionate Xarelto Xarelto No Xarelto Diclofenac Diclofenac No Diclofenac Sodium 75 Sodium 75 Sodium 75 MG MG MG Metformin Metformin No Metformin HCl HCl HCl Acetaminoph Acetaminoph No Acetaminop en-Codeine en-Codeine hen-Codein #3 #3 e #3 Cetirizine Cetirizine No Cetirizine HCl HCl HCl Flucelvax Flucelvax No Flucelvax Quadrivalen Quadrivalen Quadrivale t t nt traZODone traZODone No QD traZODone HCl 50 MG HCl 50 MG HCl 50 MG Rosuvastati Rosuvastati No Rosuvastat n Calcium n Calcium in Calcium Metoprolol Metoprolol No Metoprolol Succinate Succinate Succinate ER ER ER Sulfamethox Sulfamethox No Sulfametho azole-Trime azole-Trime xazole-Tri thoprim thoprim methoprim 800-160 MG 800-160 MG 800-160 MG methylPREDN methylPREDN No methylPRED ISolone ISolone NISolone Cephalexin Cephalexin No Cephalexin Omeprazole Omeprazole No Omeprazole Gabapentin Gabapentin No Gabapentin Naproxen Naproxen No Naproxen Meloxicam Meloxicam No Meloxicam Losartan Losartan No Losartan Potassium Potassium Potassium 100 MG 100 MG 100 MG Cyclobenzap Cyclobenzap No Cyclobenza rine HCl rine HCl chiara HCl Pantoprazol Pantoprazol No Pantoprazo e Sodium e Sodium le Sodium traZODone traZODone No traZODone HCl HCl HCl amLODIPine amLODIPine No amLODIPine Besylate 5 Besylate 5 Besylate 5 MG MG MG Ibuprofen Ibuprofen No Ibuprofen 600 MG 600 MG 600 MG Benzonatate Benzonatate No Benzonatat e predniSONE predniSONE No predniSONE hydrOXYzine hydrOXYzine No hydrOXYzin HCl HCl e HCl Amoxicillin Amoxicillin No Amoxicilli n Ofloxacin Ofloxacin No Ofloxacin Albuterol Albuterol No Albuterol Sulfate HFA Sulfate HFA Sulfate HFA Promethazin Promethazin No Promethazi e-DM e-DM ne-DM Clarithromy Clarithromy No Clarithrom justina justina ycin levoFLOXaci levoFLOXaci No levoFLOXac n n in guaiFENesin guaiFENesin No guaiFENesi -Codeine -Codeine n-Codeine Gatifloxaci Gatifloxaci No Gatifloxac n n in Doxycycline Doxycycline No Doxycyclin Hyclate Hyclate e Hyclate Mupirocin 2 Mupirocin 2 No Mupirocin % % 2 % Fluticasone Fluticasone No Fluticason Propionate Propionate e Propionate Xarelto Xarelto No Xarelto Diclofenac Diclofenac No Diclofenac Sodium 75 Sodium 75 Sodium 75 MG MG MG Metformin Metformin No Metformin HCl HCl HCl Acetaminoph Acetaminoph No Acetaminop en-Codeine en-Codeine hen-Codein #3 #3 e #3 Cetirizine Cetirizine No Cetirizine HCl HCl HCl Flucelvax Flucelvax No Flucelvax Quadrivalen Quadrivalen Quadrivale t t nt traZODone traZODone No QD traZODone HCl 50 MG HCl 50 MG HCl 50 MG Rosuvastati Rosuvastati No Rosuvastat n Calcium n Calcium in Calcium Metoprolol Metoprolol No Metoprolol Succinate Succinate Succinate ER ER ER Sulfamethox Sulfamethox No Sulfametho azole-Trime azole-Trime xazole-Tri thoprim thoprim methoprim 800-160 MG 800-160 MG 800-160 MG methylPREDN methylPREDN No methylPRED ISolone ISolone NISolone Cephalexin Cephalexin No Cephalexin Omeprazole Omeprazole No Omeprazole Gabapentin Gabapentin No Gabapentin Naproxen Naproxen No Naproxen Metformin Metformin No HCl HCl Naproxen Naproxen No Albuterol Albuterol No Sulfate HFA Sulfate HFA Rosuvastati Rosuvastati No n Calcium n Calcium Diclofenac Diclofenac No Sodium 75 Sodium 75 MG MG Meloxicam Meloxicam No amLODIPine amLODIPine No Besylate 5 Besylate 5 MG MG Gatifloxaci Gatifloxaci No n n Benzonatate Benzonatate No predniSONE predniSONE No Losartan Losartan No Potassium Potassium 100 MG 100 MG Cetirizine Cetirizine No HCl HCl Pantoprazol Pantoprazol No e Sodium e Sodium Cyclobenzap Cyclobenzap No rine HCl rine HCl Xarelto Xarelto No Flucelvax Flucelvax No Quadrivalen Quadrivalen t t Amoxicillin Amoxicillin No hydrOXYzine hydrOXYzine No HCl HCl Sulfamethox Sulfamethox No azole-Trime azole-Trime thoprim thoprim 800-160 MG 800-160 MG Mupirocin 2 Mupirocin 2 No % % Omeprazole Omeprazole No Doxycycline Doxycycline No Hyclate Hyclate Cephalexin Cephalexin No Metoprolol Metoprolol No Succinate Succinate ER ER Fluticasone Fluticasone No Propionate Propionate Acetaminoph Acetaminoph No en-Codeine en-Codeine #3 #3 levoFLOXaci levoFLOXaci No n n Ofloxacin Ofloxacin No traZODone traZODone No QD HCl 50 MG HCl 50 MG methylPREDN methylPREDN No ISolone ISolone Gabapentin Gabapentin No traZODone traZODone No HCl HCl guaiFENesin guaiFENesin No -Codeine -Codeine Ibuprofen Ibuprofen No 600 MG 600 MG Clarithromy Clarithromy No justina justina Amlodipine Amlodipine Yes Mu (Prior Common Besylate Besylate [place] Auth: Rx Spi rit Ref#:[id number] - [facility]) [facility] HydrOXYzine HydrOXYzine Yes Mu not Common HCl HCl [place] defined [facility] Gabapentin Gabapentin Yes Mu not Common [place] defined [facility] Clarithromy Clarithromy Yes Mu not Common justina justina [place] defined [facility] Amoxicillin Amoxicillin Yes Mu not Common [place] defined [facility] MethylPREDN MethylPREDN Yes Mu not Common ISolone ISolone [place] defined [facility] Flucelvax Flucelvax Yes Mu not Co mmon Quadrivalen Quadrivalen [place] defined [facility] Omeprazole Omeprazole Yes Mu not Common [place] defined [facility] Cephalexin Cephalexin Yes Mu not Common [place] defined [facility] Losartan Losartan Yes Mu TAKE 1 Co mmon Potassium Potassium [place] TABLET BY Spirit MOUTH - [facility] EVERY DAY [facility] Meloxicam Meloxicam Yes Mu not Co mmon [place] defined [facility] Diclofenac Diclofenac Yes Mu TAKE 1 Common Sodium Sodium [place] TABLET BY Spirit MOUTH - [facility] TWICE [facility] Sulfamethox Sulfamethox Yes Mu TAKE 1 Common azole-Trime azole-Trime [place] TABLET BY Spirit thoprim thoprim MOUTH - [facility] EVERY [address] HOURS FOR [address] Mupirocin Mupirocin Yes Mu APPLY TO Common [place] AFFECTED Spirit AREA TWICE - [facility] A DAY FOR [facility] Promethazin Promethazin No e-DM e-DM Metformin Metformin No Metformin HCl HCl HCl Naproxen Naproxen No Naproxen Albuterol Albuterol No Albuterol Sulfate HFA Sulfate HFA Sulfate HFA Rosuvastati Rosuvastati No Rosuvastat n Calcium n Calcium in Calcium Diclofenac Diclofenac No Diclofenac Sodium 75 Sodium 75 Sodium 75 MG MG MG Meloxicam Meloxicam No Meloxicam amLODIPine amLODIPine No amLODIPine Besylate 5 Besylate 5 Besylate 5 MG MG MG Gatifloxaci Gatifloxaci No Gatifloxac n n in Benzonatate Benzonatate No Benzonatat e predniSONE predniSONE No predniSONE Losartan Losartan No Losartan Potassium Potassium Potassium 100 MG 100 MG 100 MG Cetirizine Cetirizine No Cetirizine HCl HCl HCl Pantoprazol Pantoprazol No Pantoprazo e Sodium e Sodium le Sodium Cyclobenzap Cyclobenzap No Cyclobenza rine HCl rine HCl chiara HCl Xarelto Xarelto No Xarelto Flucelvax Flucelvax No Flucelvax Quadrivalen Quadrivalen Quadrivale t t nt Amoxicillin Amoxicillin No Amoxicilli n hydrOXYzine hydrOXYzine No hydrOXYzin HCl HCl e HCl Sulfamethox Sulfamethox No Sulfametho azole-Trime azole-Trime xazole-Tri thoprim thoprim methoprim 800-160 MG 800-160 MG 800-160 MG Mupirocin 2 Mupirocin 2 No Mupirocin % % 2 % Omeprazole Omeprazole No Omeprazole Doxycycline Doxycycline No Doxycyclin Hyclate Hyclate e Hyclate Cephalexin Cephalexin No Cephalexin Metoprolol Metoprolol No Metoprolol Succinate Succinate Succinate ER ER ER Fluticasone Fluticasone No Fluticason Propionate Propionate e Propionate Acetaminoph Acetaminoph No Acetaminop en-Codeine en-Codeine hen-Codein #3 #3 e #3 levoFLOXaci levoFLOXaci No levoFLOXac n n in Ofloxacin Ofloxacin No Ofloxacin traZODone traZODone No QD traZODone HCl 50 MG HCl 50 MG HCl 50 MG methylPREDN methylPREDN No methylPRED ISolone ISolone NISolone Gabapentin Gabapentin No Gabapentin traZODone traZODone No traZODone HCl HCl HCl guaiFENesin guaiFENesin No guaiFENesi -Codeine -Codeine n-Codeine Ibuprofen Ibuprofen No Ibuprofen 600 MG 600 MG 600 MG Clarithromy Clarithromy No Clarithrom justina justina ycin Promethazin Promethazin No Promethazi e-DM e-DM ne-DM Metformin Metformin No Metformin HCl HCl HCl Naproxen Naproxen No Naproxen Albuterol Albuterol No Albuterol Sulfate HFA Sulfate HFA Sulfate HFA Rosuvastati Rosuvastati No Rosuvastat n Calcium n Calcium in Calcium Diclofenac Diclofenac No Diclofenac Sodium 75 Sodium 75 Sodium 75 MG MG MG Meloxicam Meloxicam No Meloxicam amLODIPine amLODIPine No amLODIPine Besylate 5 Besylate 5 Besylate 5 MG MG MG Gatifloxaci Gatifloxaci No Gatifloxac n n in Benzonatate Benzonatate No Benzonatat e predniSONE predniSONE No predniSONE Losartan Losartan No Losartan Potassium Potassium Potassium 100 MG 100 MG 100 MG Cetirizine Cetirizine No Cetirizine HCl HCl HCl Pantoprazol Pantoprazol No Pantoprazo e Sodium e Sodium le Sodium Cyclobenzap Cyclobenzap No Cyclobenza rine HCl rine HCl chiara HCl Xarelto Xarelto No Xarelto Flucelvax Flucelvax No Flucelvax Quadrivalen Quadrivalen Quadrivale t t nt Amoxicillin Amoxicillin No Amoxicilli n hydrOXYzine hydrOXYzine No hydrOXYzin HCl HCl e HCl Sulfamethox Sulfamethox No Sulfametho azole-Trime azole-Trime xazole-Tri thoprim thoprim methoprim 800-160 MG 800-160 MG 800-160 MG Mupirocin 2 Mupirocin 2 No Mupirocin % % 2 % Omeprazole Omeprazole No Omeprazole Doxycycline Doxycycline No Doxycyclin Hyclate Hyclate e Hyclate Cephalexin Cephalexin No Cephalexin Metoprolol Metoprolol No Metoprolol Succinate Succinate Succinate ER ER ER Fluticasone Fluticasone No Fluticason Propionate Propionate e Propionate Acetaminoph Acetaminoph No Acetaminop en-Codeine en-Codeine hen-Codein #3 #3 e #3 levoFLOXaci levoFLOXaci No levoFLOXac n n in Ofloxacin Ofloxacin No Ofloxacin traZODone traZODone No QD traZODone HCl 50 MG HCl 50 MG HCl 50 MG methylPREDN methylPREDN No methylPRED ISolone ISolone NISolone Gabapentin Gabapentin No Gabapentin traZODone traZODone No traZODone HCl HCl HCl guaiFENesin guaiFENesin No guaiFENesi -Codeine -Codeine n-Codeine Ibuprofen Ibuprofen No Ibuprofen 600 MG 600 MG 600 MG Clarithromy Clarithromy No Clarithrom justina justina ycin Promethazin Promethazin No Promethazi e-DM e-DM ne-DM Metformin Metformin No Metformin HCl HCl HCl Naproxen Naproxen No Naproxen Albuterol Albuterol No Albuterol Sulfate HFA Sulfate HFA Sulfate HFA Rosuvastati Rosuvastati No Rosuvastat n Calcium n Calcium in Calcium Diclofenac Diclofenac No Diclofenac Sodium 75 Sodium 75 Sodium 75 MG MG MG Meloxicam Meloxicam No Meloxicam amLODIPine amLODIPine No amLODIPine Besylate 5 Besylate 5 Besylate 5 MG MG MG Gatifloxaci Gatifloxaci No Gatifloxac n n in Benzonatate Benzonatate No Benzonatat e predniSONE predniSONE No predniSONE Losartan Losartan No Losartan Potassium Potassium Potassium 100 MG 100 MG 100 MG Cetirizine Cetirizine No Cetirizine HCl HCl HCl Pantoprazol Pantoprazol No Pantoprazo e Sodium e Sodium le Sodium Cyclobenzap Cyclobenzap No Cyclobenza rine HCl rine HCl chiara HCl Xarelto Xarelto No Xarelto Flucelvax Flucelvax No Flucelvax Quadrivalen Quadrivalen Quadrivale t t nt Amoxicillin Amoxicillin No Amoxicilli n hydrOXYzine hydrOXYzine No hydrOXYzin HCl HCl e HCl Sulfamethox Sulfamethox No Sulfametho azole-Trime azole-Trime xazole-Tri thoprim thoprim methoprim 800-160 MG 800-160 MG 800-160 MG Mupirocin 2 Mupirocin 2 No Mupirocin % % 2 % Omeprazole Omeprazole No Omeprazole Pantoprazol Pantoprazol No Pantoprazo e Sodium e Sodium le Sodium Doxycycline Doxycycline No Doxycyclin Hyclate Hyclate e Hyclate Cephalexin Cephalexin No Cephalexin Metoprolol Metoprolol No Metoprolol Succinate Succinate Succinate ER ER ER Fluticasone Fluticasone No Fluticason Propionate Propionate e Propionate Acetaminoph Acetaminoph No Acetaminop en-Codeine en-Codeine hen-Codein #3 #3 e #3 levoFLOXaci levoFLOXaci No levoFLOXac n n in Ofloxacin Ofloxacin No Ofloxacin traZODone traZODone No QD traZODone HCl 50 MG HCl 50 MG HCl 50 MG methylPREDN methylPREDN No methylPRED ISolone ISolone NISolone Cetirizine Cetirizine No Cetirizine HCl HCl HCl Gabapentin Gabapentin No Gabapentin traZODone traZODone No traZODone HCl HCl HCl guaiFENesin guaiFENesin No guaiFENesi -Codeine -Codeine n-Codeine Ibuprofen Ibuprofen No Ibuprofen 600 MG 600 MG 600 MG Clarithromy Clarithromy No Clarithrom justina justina ycin Promethazin Promethazin No Promethazi e-DM e-DM ne-DM Metformin Metformin No Metformin HCl HCl HCl Naproxen Naproxen No Naproxen Albuterol Albuterol No Albuterol Sulfate HFA Sulfate HFA Sulfate HFA Rosuvastati Rosuvastati No Rosuvastat n Calcium n Calcium in Calcium amLODIPine amLODIPine No amLODIPine Besylate 5 Besylate 5 Besylate 5 MG MG MG Diclofenac Diclofenac No Diclofenac Sodium 75 Sodium 75 Sodium 75 MG MG MG Meloxicam Meloxicam No Meloxicam amLODIPine amLODIPine No amLODIPine Besylate 5 Besylate 5 Besylate 5 MG MG MG Gatifloxaci Gatifloxaci No Gatifloxac n n in Benzonatate Benzonatate No Benzonatat e predniSONE predniSONE No predniSONE Losartan Losartan No Losartan Potassium Potassium Potassium 100 MG 100 MG 100 MG Cetirizine Cetirizine No Cetirizine HCl HCl HCl Diclofenac Diclofenac No Diclofenac Sodium 75 Sodium 75 Sodium 75 MG MG MG Pantoprazol Pantoprazol No Pantoprazo e Sodium e Sodium le Sodium Cyclobenzap Cyclobenzap No Cyclobenza rine HCl rine HCl chiara HCl Xarelto Xarelto No Xarelto Flucelvax Flucelvax No Flucelvax Quadrivalen Quadrivalen Quadrivale t t nt Amoxicillin Amoxicillin No Amoxicilli n hydrOXYzine hydrOXYzine No hydrOXYzin HCl HCl e HCl Sulfamethox Sulfamethox No Sulfametho azole-Trime azole-Trime xazole-Tri thoprim thoprim methoprim 800-160 MG 800-160 MG 800-160 MG Mupirocin 2 Mupirocin 2 No Mupirocin % % 2 % Omeprazole Omeprazole No Omeprazole Acetaminoph Acetaminoph No Acetaminop en-Codeine en-Codeine hen-Codein #3 #3 e #3 Doxycycline Doxycycline No Doxycyclin Hyclate Hyclate e Hyclate Cephalexin Cephalexin No Cephalexin Metoprolol Metoprolol No Metoprolol Succinate Succinate Succinate ER ER ER Fluticasone Fluticasone No Fluticason Propionate Propionate e Propionate Acetaminoph Acetaminoph No Acetaminop en-Codeine en-Codeine hen-Codein #3 #3 e #3 levoFLOXaci levoFLOXaci No levoFLOXac n n in Ofloxacin Ofloxacin No Ofloxacin traZODone traZODone No QD traZODone HCl 50 MG HCl 50 MG HCl 50 MG methylPREDN methylPREDN No methylPRED ISolone ISolone NISolone Rosuvastati Rosuvastati No Rosuvastat n Calcium n Calcium in Calcium Gabapentin Gabapentin No Gabapentin traZODone traZODone No traZODone HCl HCl HCl guaiFENesin guaiFENesin No guaiFENesi -Codeine -Codeine n-Codeine Ibuprofen Ibuprofen No Ibuprofen 600 MG 600 MG 600 MG Clarithromy Clarithromy No Clarithrom justina justina ycin Promethazin Promethazin No Promethazi e-DM e-DM ne-DM Benzonatate Benzonatate No Metformin Metformin No HCl HCl Gabapentin Gabapentin No Doxycycline Doxycycline No Doxycyclin Hyclate Hyclate e Hyclate Doxycycline Doxycycline No Hyclate Hyclate Albuterol Albuterol No Sulfate HFA Sulfate HFA traZODone traZODone No QD HCl 50 MG HCl 50 MG Rosuvastati Rosuvastati No n Calcium n Calcium amLODIPine amLODIPine No Besylate 5 Besylate 5 MG MG Gatifloxaci Gatifloxaci No n n Fluticasone Fluticasone No Propionate Propionate methylPREDN methylPREDN No ISolone ISolone Albuterol Albuterol No Albuterol Sulfate HFA Sulfate HFA Sulfate HFA Metoprolol Metoprolol No Succinate Succinate ER ER traZODone traZODone No HCl HCl Acetaminoph Acetaminoph No en-Codeine en-Codeine #3 #3 Mupirocin 2 Mupirocin 2 No % % Cyclobenzap Cyclobenzap No rine HCl rine HCl Cephalexin Cephalexin No Diclofenac Diclofenac No Sodium 75 Sodium 75 MG MG Ofloxacin Ofloxacin No guaiFENesin guaiFENesin No -Codeine -Codeine Amoxicillin Amoxicillin No Flucelvax Flucelvax No Flucelvax Quadrivalen Quadrivalen Quadrivale t t nt levoFLOXaci levoFLOXaci No n n Clarithromy Clarithromy No justina justina Cetirizine Cetirizine No HCl HCl Pantoprazol Pantoprazol No e Sodium e Sodium Xarelto Xarelto No Meloxicam Meloxicam No Flucelvax Flucelvax No Quadrivalen Quadrivalen t t Naproxen Naproxen No Losartan Losartan No Losartan Potassium Potassium Potassium 100 MG 100 MG 100 MG Omeprazole Omeprazole No hydrOXYzine hydrOXYzine No HCl HCl Ibuprofen Ibuprofen No 600 MG 600 MG Promethazin Promethazin No e-DM e-DM Sulfamethox Sulfamethox No azole-Trime azole-Trime thoprim thoprim 800-160 MG 800-160 MG predniSONE predniSONE No Losartan Losartan No Potassium Potassium 100 MG 100 MG Benzonatate Benzonatate No Benzonatat e Benzonatate Benzonatate No Benzonatat e Metformin Metformin No Metformin HCl HCl HCl Gabapentin Gabapentin No Gabapentin Doxycycline Doxycycline No Doxycyclin Hyclate Hyclate e Hyclate Albuterol Albuterol No Albuterol Sulfate HFA Sulfate HFA Sulfate HFA traZODone traZODone No QD traZODone HCl 50 MG HCl 50 MG HCl 50 MG Rosuvastati Rosuvastati No Rosuvastat n Calcium n Calcium in Calcium amLODIPine amLODIPine No amLODIPine Besylate 5 Besylate 5 Besylate 5 MG MG MG hydrOXYzine hydrOXYzine No hydrOXYzin HCl HCl e HCl Gatifloxaci Gatifloxaci No Gatifloxac n n in Fluticasone Fluticasone No Fluticason Propionate Propionate e Propionate methylPREDN methylPREDN No methylPRED ISolone ISolone NISolone Metoprolol Metoprolol No Metoprolol Succinate Succinate Succinate ER ER ER traZODone traZODone No traZODone HCl HCl HCl Acetaminoph Acetaminoph No Acetaminop en-Codeine en-Codeine hen-Codein #3 #3 e #3 Mupirocin 2 Mupirocin 2 No Mupirocin % % 2 % Cyclobenzap Cyclobenzap No Cyclobenza rine HCl rine HCl chiara HCl Cephalexin Cephalexin No Cephalexin Diclofenac Diclofenac No Diclofenac Sodium 75 Sodium 75 Sodium 75 MG MG MG Meloxicam Meloxicam No Meloxicam Ofloxacin Ofloxacin No Ofloxacin guaiFENesin guaiFENesin No guaiFENesi -Codeine -Codeine n-Codeine Amoxicillin Amoxicillin No Amoxicilli n levoFLOXaci levoFLOXaci No levoFLOXac n n in Clarithromy Clarithromy No Clarithrom justina justina ycin Cetirizine Cetirizine No Cetirizine HCl HCl HCl Pantoprazol Pantoprazol No Pantoprazo e Sodium e Sodium le Sodium Xarelto Xarelto No Xarelto Gatifloxaci Gatifloxaci No Gatifloxac n n in Meloxicam Meloxicam No Meloxicam Flucelvax Flucelvax No Flucelvax Quadrivalen Quadrivalen Quadrivale t t nt Naproxen Naproxen No Naproxen Omeprazole Omeprazole No Omeprazole hydrOXYzine hydrOXYzine No hydrOXYzin HCl HCl e HCl Ibuprofen Ibuprofen No Ibuprofen 600 MG 600 MG 600 MG Promethazin Promethazin No Promethazi e-DM e-DM ne-DM Sulfamethox Sulfamethox No Sulfametho azole-Trime azole-Trime xazole-Tri thoprim thoprim methoprim 800-160 MG 800-160 MG 800-160 MG predniSONE predniSONE No predniSONE Losartan Losartan No Losartan Potassium Potassium Potassium 100 MG 100 MG 100 MG levoFLOXaci levoFLOXaci No levoFLOXac n n in Benzonatate Benzonatate No Benzonatat e Metformin Metformin No Metformin HCl HCl HCl Gabapentin Gabapentin No Gabapentin Metoprolol Metoprolol No Metoprolol Succinate Succinate Succinate ER ER ER Doxycycline Doxycycline No Doxycyclin Hyclate Hyclate e Hyclate Albuterol Albuterol No Albuterol Sulfate HFA Sulfate HFA Sulfate HFA traZODone traZODone No QD traZODone HCl 50 MG HCl 50 MG HCl 50 MG Rosuvastati Rosuvastati No Rosuvastat n Calcium n Calcium in Calcium amLODIPine amLODIPine No amLODIPine Besylate 5 Besylate 5 Besylate 5 MG MG MG Gatifloxaci Gatifloxaci No Gatifloxac n n in Fluticasone Fluticasone No Fluticason Propionate Propionate e Propionate methylPREDN methylPREDN No methylPRED ISolone ISolone NISolone methylPREDN methylPREDN No methylPRED ISolone ISolone NISolone Metoprolol Metoprolol No Metoprolol Succinate Succinate Succinate ER ER ER traZODone traZODone No traZODone HCl HCl HCl Acetaminoph Acetaminoph No Acetaminop en-Codeine en-Codeine hen-Codein #3 #3 e #3 Mupirocin 2 Mupirocin 2 No Mupirocin % % 2 % Cyclobenzap Cyclobenzap No Cyclobenza rine HCl rine HCl chiara HCl Cephalexin Cephalexin No Cephalexin Diclofenac Diclofenac No Diclofenac Sodium 75 Sodium 75 Sodium 75 MG MG MG Ofloxacin Ofloxacin No Ofloxacin guaiFENesin guaiFENesin No guaiFENesi -Codeine -Codeine n-Codeine Amoxicillin Amoxicillin No Amoxicilli n Gabapentin Gabapentin No Gabapentin levoFLOXaci levoFLOXaci No levoFLOXac n n in Clarithromy Clarithromy No Clarithrom justina justina ycin Cetirizine Cetirizine No Cetirizine HCl HCl HCl Pantoprazol Pantoprazol No Pantoprazo e Sodium e Sodium le Sodium Xarelto Xarelto No Xarelto Meloxicam Meloxicam No Meloxicam Flucelvax Flucelvax No Flucelvax Quadrivalen Quadrivalen Quadrivale t t nt Naproxen Naproxen No Naproxen Ibuprofen Ibuprofen No Ibuprofen 600 MG 600 MG 600 MG Omeprazole Omeprazole No Omeprazole hydrOXYzine hydrOXYzine No hydrOXYzin HCl HCl e HCl Ibuprofen Ibuprofen No Ibuprofen 600 MG 600 MG 600 MG Promethazin Promethazin No Promethazi e-DM e-DM ne-DM Sulfamethox Sulfamethox No Sulfametho azole-Trime azole-Trime xazole-Tri thoprim thoprim methoprim 800-160 MG 800-160 MG 800-160 MG predniSONE predniSONE No predniSONE Losartan Losartan No Losartan Potassium Potassium Potassium 100 MG 100 MG 100 MG Sulfamethox Sulfamethox No Sulfametho azole-Trime azole-Trime xazole-Tri thoprim thoprim methoprim 800-160 MG 800-160 MG 800-160 MG Cyclobenzap Cyclobenzap No Cyclobenza rine HCl rine HCl chiara HCl Benzonatate Benzonatate No Benzonatat e Metformin Metformin No Metformin HCl HCl HCl Gabapentin Gabapentin No Gabapentin Doxycycline Doxycycline No Doxycyclin Hyclate Hyclate e Hyclate Albuterol Albuterol No Albuterol Sulfate HFA Sulfate HFA Sulfate HFA traZODone traZODone No QD traZODone HCl 50 MG HCl 50 MG HCl 50 MG Clarithromy Clarithromy No Clarithrom justina justina ycin Rosuvastati Rosuvastati No Rosuvastat n Calcium n Calcium in Calcium amLODIPine amLODIPine No amLODIPine Besylate 5 Besylate 5 Besylate 5 MG MG MG Gatifloxaci Gatifloxaci No Gatifloxac n n in Fluticasone Fluticasone No Fluticason Propionate Propionate e Propionate methylPREDN methylPREDN No methylPRED ISolone ISolone NISolone Metoprolol Metoprolol No Metoprolol Succinate Succinate Succinate ER ER ER traZODone traZODone No traZODone HCl HCl HCl Acetaminoph Acetaminoph No Acetaminop en-Codeine en-Codeine hen-Codein #3 #3 e #3 Mupirocin 2 Mupirocin 2 No Mupirocin % % 2 % Cyclobenzap Cyclobenzap No Cyclobenza rine HCl rine HCl chiara HCl Cephalexin Cephalexin No Cephalexin Cephalexin Cephalexin No Cephalexin Diclofenac Diclofenac No Diclofenac Sodium 75 Sodium 75 Sodium 75 MG MG MG Ofloxacin Ofloxacin No Ofloxacin guaiFENesin guaiFENesin No guaiFENesi -Codeine -Codeine n-Codeine Amoxicillin Amoxicillin No Amoxicilli n levoFLOXaci levoFLOXaci No levoFLOXac n n in Clarithromy Clarithromy No Clarithrom justina justina ycin Cetirizine Cetirizine No Cetirizine HCl HCl HCl Pantoprazol Pantoprazol No Pantoprazo e Sodium e Sodium le Sodium Fluticasone Fluticasone No Fluticason Propionate Propionate e Propionate Xarelto Xarelto No Xarelto Meloxicam Meloxicam No Meloxicam Flucelvax Flucelvax No Flucelvax Quadrivalen Quadrivalen Quadrivale t t nt Naproxen Naproxen No Naproxen Omeprazole Omeprazole No Omeprazole hydrOXYzine hydrOXYzine No hydrOXYzin HCl HCl e HCl Ibuprofen Ibuprofen No Ibuprofen 600 MG 600 MG 600 MG Promethazin Promethazin No Promethazi e-DM e-DM ne-DM Sulfamethox Sulfamethox No Sulfametho azole-Trime azole-Trime xazole-Tri thoprim thoprim methoprim 800-160 MG 800-160 MG 800-160 MG Naproxen Naproxen No Naproxen predniSONE predniSONE No predniSONE Losartan Losartan No Losartan Potassium Potassium Potassium 100 MG 100 MG 100 MG Metformin Metformin No Metformin HCl HCl HCl Amoxicillin Amoxicillin No Amoxicilli n Meloxicam Meloxicam No Meloxicam guaiFENesin guaiFENesin No guaiFENesi -Codeine -Codeine n-Codeine Sulfamethox Sulfamethox No Sulfametho azole-Trime azole-Trime xazole-Tri thoprim thoprim methoprim 800-160 MG 800-160 MG 800-160 MG Clarithromy Clarithromy No Clarithrom justina justina ycin traZODone traZODone No traZODone HCl HCl HCl traZODone traZODone No QD traZODone HCl 50 MG HCl 50 MG HCl 50 MG Amoxicillin Amoxicillin No Amoxicilli n predniSONE predniSONE No predniSONE Tylenol Tylenol No Tylenol Mupirocin 2 Mupirocin 2 No Mupirocin % % 2 % Rosuvastati Rosuvastati No Rosuvastat n Calcium n Calcium in Calcium Promethazin Promethazin No Promethazi e-DM e-DM ne-DM Albuterol Albuterol No Albuterol Sulfate HFA Sulfate HFA Sulfate HFA Metformin Metformin No Metformin HCl HCl HCl Pantoprazol Pantoprazol No Pantoprazo e Sodium e Sodium le Sodium Voltaren Voltaren No Voltaren Ibuprofen Ibuprofen No Ibuprofen 600 MG 600 MG 600 MG Cephalexin Cephalexin No Cephalexin Omeprazole Omeprazole No Omeprazole Gabapentin Gabapentin No Gabapentin Metoprolol Metoprolol No Metoprolol Succinate Succinate Succinate ER ER ER methylPREDN methylPREDN No methylPRED ISolone ISolone NISolone Mupirocin 2 Mupirocin 2 No Mupirocin % % 2 % hydrOXYzine hydrOXYzine No hydrOXYzin HCl HCl e HCl Fluticasone Fluticasone No Fluticason Propionate Propionate e Propionate Flucelvax Flucelvax No Flucelvax Quadrivalen Quadrivalen Quadrivale t t nt Doxycycline Doxycycline No Doxycyclin Hyclate Hyclate e Hyclate Ofloxacin Ofloxacin No Ofloxacin amLODIPine amLODIPine No amLODIPine Besylate 5 Besylate 5 Besylate 5 MG MG MG Losartan Losartan No Losartan Potassium Potassium Potassium 100 MG 100 MG 100 MG Ofloxacin Ofloxacin No Ofloxacin levoFLOXaci levoFLOXaci No levoFLOXac n n in Gatifloxaci Gatifloxaci No Gatifloxac n n in Xarelto Xarelto No Xarelto Diclofenac Diclofenac No Diclofenac Sodium 75 Sodium 75 Sodium 75 MG MG MG Cyclobenzap Cyclobenzap No Cyclobenza rine HCl rine HCl chiara HCl Acetaminoph Acetaminoph No Acetaminop en-Codeine en-Codeine hen-Codein #3 #3 e #3 Naproxen Naproxen No Naproxen guaiFENesin guaiFENesin No guaiFENesi -Codeine -Codeine n-Codeine Omeprazole Omeprazole No Omeprazole Cetirizine Cetirizine No Cetirizine HCl HCl HCl Benzonatate Benzonatate No Benzonatat e traZODone traZODone No traZODone HCl HCl HCl Promethazin Promethazin No Promethazi e-DM e-DM ne-DM Meloxicam Meloxicam No Meloxicam guaiFENesin guaiFENesin No guaiFENesi -Codeine -Codeine n-Codeine Sulfamethox Sulfamethox No Sulfametho azole-Trime azole-Trime xazole-Tri thoprim thoprim methoprim 800-160 MG 800-160 MG 800-160 MG Clarithromy Clarithromy No Clarithrom justina justina ycin predniSONE predniSONE No predniSONE traZODone traZODone No traZODone HCl HCl HCl traZODone traZODone No QD traZODone HCl 50 MG HCl 50 MG HCl 50 MG Amoxicillin Amoxicillin No Amoxicilli n predniSONE predniSONE No predniSONE Tylenol Tylenol No Tylenol Rosuvastati Rosuvastati No Rosuvastat n Calcium n Calcium in Calcium Promethazin Promethazin No Promethazi e-DM e-DM ne-DM Albuterol Albuterol No Albuterol Sulfate HFA Sulfate HFA Sulfate HFA Metformin Metformin No Metformin HCl HCl HCl Pantoprazol Pantoprazol No Pantoprazo e Sodium e Sodium le Sodium Voltaren Voltaren No Voltaren Ibuprofen Ibuprofen No Ibuprofen 600 MG 600 MG 600 MG Cephalexin Cephalexin No Cephalexin Gabapentin Gabapentin No Gabapentin Metoprolol Metoprolol No Metoprolol Succinate Succinate Succinate ER ER ER methylPREDN methylPREDN No methylPRED ISolone ISolone NISolone Mupirocin 2 Mupirocin 2 No Mupirocin % % 2 % hydrOXYzine hydrOXYzine No hydrOXYzin HCl HCl e HCl Fluticasone Fluticasone No Fluticason Propionate Propionate e Propionate Flucelvax Flucelvax No Flucelvax Quadrivalen Quadrivalen Quadrivale t t nt Doxycycline Doxycycline No Doxycyclin Hyclate Hyclate e Hyclate amLODIPine amLODIPine No amLODIPine Besylate 5 Besylate 5 Besylate 5 MG MG MG Losartan Losartan No Losartan Potassium Potassium Potassium 100 MG 100 MG 100 MG Ofloxacin Ofloxacin No Ofloxacin levoFLOXaci levoFLOXaci No levoFLOXac n n in Gatifloxaci Gatifloxaci No Gatifloxac n n in Xarelto Xarelto No Xarelto Diclofenac Diclofenac No Diclofenac Sodium 75 Sodium 75 Sodium 75 MG MG MG Cyclobenzap Cyclobenzap No Cyclobenza rine HCl rine HCl chiara HCl Acetaminoph Acetaminoph No Acetaminop en-Codeine en-Codeine hen-Codein #3 #3 e #3 Naproxen Naproxen No Naproxen Omeprazole Omeprazole No Omeprazole Cetirizine Cetirizine No Cetirizine HCl HCl HCl Benzonatate Benzonatate No Benzonatat e Meloxicam Meloxicam No Meloxicam guaiFENesin guaiFENesin No guaiFENesi -Codeine -Codeine n-Codeine Sulfamethox Sulfamethox No Sulfametho azole-Trime azole-Trime xazole-Tri thoprim thoprim methoprim 800-160 MG 800-160 MG 800-160 MG Clarithromy Clarithromy No Clarithrom justina justina ycin traZODone traZODone No traZODone HCl HCl HCl traZODone traZODone No QD traZODone HCl 50 MG HCl 50 MG HCl 50 MG Amoxicillin Amoxicillin No Amoxicilli n predniSONE predniSONE No predniSONE Tylenol Tylenol No Tylenol Rosuvastati Rosuvastati No Rosuvastat n Calcium n Calcium in Calcium Promethazin Promethazin No Promethazi e-DM e-DM ne-DM Albuterol Albuterol No Albuterol Sulfate HFA Sulfate HFA Sulfate HFA Metformin Metformin No Metformin HCl HCl HCl Pantoprazol Pantoprazol No Pantoprazo e Sodium e Sodium le Sodium Voltaren Voltaren No Voltaren Ibuprofen Ibuprofen No Ibuprofen 600 MG 600 MG 600 MG Cephalexin Cephalexin No Cephalexin Gabapentin Gabapentin No Gabapentin Metoprolol Metoprolol No Metoprolol Succinate Succinate Succinate ER ER ER methylPREDN methylPREDN No methylPRED ISolone ISolone NISolone Mupirocin 2 Mupirocin 2 No Mupirocin % % 2 % hydrOXYzine hydrOXYzine No hydrOXYzin HCl HCl e HCl Fluticasone Fluticasone No Fluticason Propionate Propionate e Propionate Flucelvax Flucelvax No Flucelvax Quadrivalen Quadrivalen Quadrivale t t nt Doxycycline Doxycycline No Doxycyclin Hyclate Hyclate e Hyclate amLODIPine amLODIPine No amLODIPine Besylate 5 Besylate 5 Besylate 5 MG MG MG Losartan Losartan No Losartan Potassium Potassium Potassium 100 MG 100 MG 100 MG Ofloxacin Ofloxacin No Ofloxacin levoFLOXaci levoFLOXaci No levoFLOXac n n in Gatifloxaci Gatifloxaci No Gatifloxac n n in Xarelto Xarelto No Xarelto Diclofenac Diclofenac No Diclofenac Sodium 75 Sodium 75 Sodium 75 MG MG MG Cyclobenzap Cyclobenzap No Cyclobenza rine HCl rine HCl chiara HCl Acetaminoph Acetaminoph No Acetaminop en-Codeine en-Codeine hen-Codein #3 #3 e #3 Naproxen Naproxen No Naproxen Omeprazole Omeprazole No Omeprazole Cetirizine Cetirizine No Cetirizine HCl HCl HCl Benzonatate Benzonatate No Benzonatat e Meloxicam Meloxicam No Meloxicam guaiFENesin guaiFENesin No guaiFENesi -Codeine -Codeine n-Codeine Sulfamethox Sulfamethox No Sulfametho azole-Trime azole-Trime xazole-Tri thoprim thoprim methoprim 800-160 MG 800-160 MG 800-160 MG Clarithromy Clarithromy No Clarithrom justina justina ycin traZODone traZODone No traZODone HCl HCl HCl traZODone traZODone No QD traZODone HCl 50 MG HCl 50 MG HCl 50 MG Amoxicillin Amoxicillin No Amoxicilli n predniSONE predniSONE No predniSONE Tylenol Tylenol No Tylenol Rosuvastati Rosuvastati No Rosuvastat n Calcium n Calcium in Calcium Promethazin Promethazin No Promethazi e-DM e-DM ne-DM Albuterol Albuterol No Albuterol Sulfate HFA Sulfate HFA Sulfate HFA Metformin Metformin No Metformin HCl HCl HCl Pantoprazol Pantoprazol No Pantoprazo e Sodium e Sodium le Sodium Immunizations Ordered Filled Immunization Date Status Comments Sour e Immunization Name Name Influenza Virus 2022-07-30 [facility]pleted [facility] [place] [facility] Influenza Virus 2022-07-30 [facility] [place] 65[facility] Moderna COVID-19 2020-12-25 Completed Vaccine 00:00:00 Moderna COVID-19 2020-12-25 Completed Vaccine 00:00:00 Moderna COVID-19 2020-12-25 Completed Vaccine 00:00:00 Moderna COVID-19 2020-12-25 Completed Vaccine 00:00:00 Moderna COVID-19 2020-12-25 Completed Vaccine 00:00:00 Moderna COVID-19 2020-11-24 Completed Vaccine 00:00:00 Moderna COVID-19 2020-11-24 Completed Vaccine 00:00:00 Moderna COVID-19 2020-11-24 Completed Vaccine 00:00:00 Moderna COVID-19 2020-11-24 Completed Vaccine 00:00:00 Moderna COVID-19 2020-11-24 Completed Vaccine 00:00:00 [facility] Bupivicaine [facility] 2020-06-12 Completed [facility] - 15:06:00 [facility] Kenalog Kenalog 2020-06-12 Completed [facility] - (Triamcinolone) (Triamcinolone) 15:06:00 [facility] Bupivicaine Laquey Bupivicaine [facility] 2020-06-12 Completed [facility] - 15:06:00 [facility] Kenalog Kenalog 2020-06-12 Completed [facility] - (Triamcinolone) (Triamcinolone) 15:06:00 [facility] Bupivicaine Laquey Bupivicaine Laquey 2020-06-12 Completed [facility] - 15:06:00 [facility] Kenalog Kenalog 2020-06-12 Completed [facility] - (Triamcinolone) (Triamcinolone) 15:06:00 [facility] Bupivicaine Laquey Bupivicaine Laquey 2020-06-12 Completed [facility] - 15:06:00 [facility] Kenalog Kenalog 2020-06-12 Completed [facility] - (Triamcinolone) (Triamcinolone) 15:06:00 [facility] Bupivicaine Laquey Bupivicaine Laquey 2020-06-12 Completed [facility] - 15:06:00 [facility] Kenalog Kenalog 2020-06-12 Completed [facility] - (Triamcinolone) (Triamcinolone) 15:06:00 [facility] Bupivicaine Laquey Bupivicaine Laquey 2020-06-12 Completed [facility] - 15:06:00 [facility] Kenalog Kenalog 2020-06-12 Completed [facility] - (Triamcinolone) (Triamcinolone) 15:06:00 [facility] Bupivicaine Laquey Bupivicaine Laquey 2020-06-12 Completed [facility] - 15:06:00 [facility] Kenalog Kenalog 2020-06-12 Completed [facility] - (Triamcinolone) (Triamcinolone) 15:06:00 [facility] Bupivicaine Laquey Bupivicaine Laquey 2020-06-12 Completed [facility] - 15:06:00 [facility] Kenalog Kenalog 2020-06-12 Completed [facility] - (Triamcinolone) (Triamcinolone) 15:06:00 [facility] Hyalgan 20 mg Hyalgan 20 mg 2020-02-02 [facility]00 [facility] Hyalgan 20 mg Hyalgan 20 mg 2020-02-02 [facility] 13:53[facility]00 [facility] Hyalgan 20 mg Hyalgan 20 mg 2020-02-02 [facility] 13:53[facility]00 [facility] Hyalgan 20 mg Hyalgan 20 mg 2020-02-02 [facility] 13:53:00 [facility] Hyalgan 20 mg Hyalgan 20 mg 2020-02-02 [facility] - 13:53:00 [facility] Hyalgan 20 mg Hyalgan 20 mg 2020-02-02 [facility] 13:53:00 [facility] Hyalgan 20 mg Hyalgan 20 mg 2020-02-02 [facility] 13:53:00 [facility] Hyalgan 20 mg Hyalgan 20 mg 2020-02-02 [facility] 13:53:00 [facility] Hyalgan 20 mg Hyalgan 20 mg 2020-01-26 [facility] 15:28[facility]00 [facility] Hyalgan 20 mg Hyalgan 20 mg 2020-01-26 [facility] 15:28[facility]00 [facility] Hyalgan 20 mg Hyalgan 20 mg 2020-01-26 [facility] 15:28:00 [facility] Hyalgan 20 mg Hyalgan 20 mg 2020-01-26 [facility] 15:28:00 [facility] Hyalgan 20 mg Hyalgan 20 mg 2020-01-26 [facility] 15:28[facility]00 [facility] Hyalgan 20 mg Hyalgan 20 mg 2020-01-26 [facility] 15:28:00 [facility] Hyalgan 20 mg Hyalgan 20 mg 2020-01-26 [facility] 15:28[facility]00 [facility] Hyalgan 20 mg Hyalgan 20 mg 2020-01-26 [facility] 15:28:00 [facility] Hyalgan 20 mg Hyalgan 20 mg 2020-01-16 [facility] 15:56:00 [facility] Hyalgan 20 mg Hyalgan 20 mg 2020-01-16 [facility] 15:56:00 [facility] Hyalgan 20 mg Hyalgan 20 mg 2020-01-16 [facility] 15:56:00 [facility] Hyalgan 20 mg Hyalgan 20 mg 2020-01-16 [facility] 15:56:00 [facility] Hyalgan 20 mg Hyalgan 20 mg 2020-01-16 [facility] 15:56:00 [facility] Hyalgan 20 mg Hyalgan 20 mg 2020-01-16 Com[facility] 15:56:00 [facility] Hyalgan 20 mg Hyalgan 20 mg 2020-01-16 [facility] 15:56:00 [facility] Hyalgan 20 mg Hyalgan 20 mg 2020-01-16 [facility] 15:56:00 [facility] Bupivicaine Laquey Bupivicaine Laquey 2019-12-21 Completed [facility] - 13:51:00 [facility] Bupivicaine Laquey Bupivicaine Laquey 2019-12-21 Completed [facility] - 13:51:00 [facility] Bupivicaine Laquey Bupivicaine Laquey 2019-12-21 Completed [facility] - 13:51:00 [facility] Bupivicaine Laquey Bupivicaine Laquey 2019-12-21 Completed [facility] - 13:51:00 [facility] Bupivicaine Laquey Bupivicaine Laquey 2019-12-21 Completed [facility] - 13:51:00 [facility] Bupivicaine Laquey Bupivicaine Laquey 2019-12-21 Completed [facility] - 13:51:00 [facility] Bupivicaine Laquey Bupivicaine Laquey 2019-12-21 Completed [facility] - 13:51:00 [facility] Bupivicaine Laquey Bupivicaine Laquey 2019-12-21 Completed [facility] - 13:51:00 [facility] Kenalog Kenalog 2019-12-21 Completed [facility] - (Triamcinolone) (Triamcinolone) 13:50:00 [facility] Kenalog Kenalog 2019-12-21 Completed [facility] - (Triamcinolone) (Triamcinolone) 13:50:00 [facility] Kenalog Kenalog 2019-12-21 Completed [facility] - (Triamcinolone) (Triamcinolone) 13:50:00 [facility] Kenerrol Kenalog 2019-12-21 Completed [facility] - (Triamcinolone) (Triamcinolone) 13:50:00 [facility] Kenalog Kenalog 2019-12-21 Completed [facility] - (Triamcinolone) (Triamcinolone) 13:50:00 [facility] Kenerrol Kenalog 2019-12-21 Completed [facility] - (Triamcinolone) (Triamcinolone) 13:50:00 [facility] Kenerrol Kenalog 2019-12-21 Completed [facility] - (Triamcinolone) (Triamcinolone) 13:50:00 [facility] Kenalog Kenalog 2019-12-21 Completed [facility] - (Triamcinolone) (Triamcinolone) 13:50:00 [facility] Kenerrol Kenalog 2019-07-11 Completed [facility] - (Triamcinolone) (Triamcinolone) 15:14:00 [facility] Kenalog Kenalog 2019-07-11 Completed [facility] - (Triamcinolone) (Triamcinolone) 15:14:00 [facility] Kenerrol Kenalog 2019-07-11 Completed [facility] - (Triamcinolone) (Triamcinolone) 15:14:00 [facility] Pabloalog Pabloalog 2019-07-11 Completed [facility] - (Triamcinolone) (Triamcinolone) 15:14:00 [facility] Kenalog Pabloalog 2019-07-11 Completed [facility] - (Triamcinolone) (Triamcinolone) 15:14:00 [facility] Pabloalog Pabloalog 2019-07-11 Completed [facility] - (Triamcinolone) (Triamcinolone) 15:14:00 [facility] Pabloalog Pabloalog 2019-07-11 Completed [facility] - (Triamcinolone) (Triamcinolone) 15:14:00 [facility] Alex Johnson 2019-07-11 Completed [facility] - (Triamcinolone) (Triamcinolone) 15:14:00 [facility] LIDOCAINE HCL LIDOCAINE HCL 2019-07-11 Completed [facility] - 10[facility]/ML 10MG/ML 15:12:00 [facility] LIDOCAINE HCL LIDOCAINE HCL 2019-07-11 Completed [facility] - 10MG/ML 10MG/ML 15:12:00 [facility] LIDOCAINE HCL LIDOCAINE HCL 2019-07-11 Completed [facility] - 10MG/ML 10MG/ML 15:12:00 [facility] LIDOCAINE HCL LIDOCAINE HCL 2019-07-11 Completed [facility] - 10MG/ML 10MG/ML 15:12:00 [facility] LIDOCAINE HCL LIDOCAINE HCL 2019-07-11 Completed [facility] - 10MG/ML 10MG/ML 15:12:00 [facility] LIDOCAINE HCL LIDOCAINE HCL 2019-07-11 Completed [facility] - 10MG/ML 10MG/ML 15:12:00 [facility] LIDOCAINE HCL LIDOCAINE HCL 2019-07-11 Completed [facility] - 10MG/ML 10MG/ML 15:12:00 [facility] LIDOCAINE HCL LIDOCAINE HCL 2019-07-11 Completed [facility] - 10MG/ML 10MG/ML 15:12:00 [facility] Hyalgan 20 mg Hyalgan 20 mg 2019-04-05 Completed [facility] - 10:54:00 [facility] Hyalgan 20 mg Hyalgan 20 mg 2019-04-05 Com[facility] - 10:54:00 [facility] Hyalgan 20 mg Hyalgan 20 mg 2019-04-05 Com[facility] - 10:54:00 [facility] Hyalgan 20 mg Hyalgan 20 mg 2019-04-05 Completed [facility] - 10:54:00 [facility] Hyalgan 20 mg Hyalgan 20 mg 2019-04-05 Completed [facility] - 10:54:00 [facility] Hyalgan 20 mg Hyalgan 20 mg 2019-04-05 Completed [facility] - 10:54:00 [facility] Hyalgan 20 mg Hyalgan 20 mg 2019-04-05 Completed [facility] - 10:54:00 [facility] Hyalgan 20 mg Hyalgan 20 mg 2019-04-05 Completed [facility] - 10:54:00 [facility] Hyalgan 20 mg Hyalgan 20 mg 2019-03-29 Completed [facility] - 10:53:00 [facility] Hyalgan 20 mg Hyalgan 20 mg 2019-03-29 Completed [facility] - 10:53:00 [facility] Hyalgan 20 mg Hyalgan 20 mg 2019-03-29 Completed [facility] - 10:53:00 [facility] Hyalgan 20 mg Hyalgan 20 mg 2019-03-29 Completed [facility] - 10:53:00 [facility] Hyalgan 20 mg Hyalgan 20 mg 2019-03-29 Completed [facility] - 10:53:00 [facility] Hyalgan 20 mg Hyalgan 20 mg 2019-03-29 Completed [facility] - 10:53:00 [facility] Hyalgan 20 mg Hyalgan 20 mg 2019-03-29 Completed [facility] - 10:53:00 [facility] Hyalgan 20 mg Hyalgan 20 mg 2019-03-29 Completed [facility] - 10:53:00 [facility] Kenalog Kenalog 2019-03-22 Completed [facility] - (Triamcinolone) (Triamcinolone) 11:02:00 [facility] Kenalog Kenalog 2019-03-22 Completed [facility] - (Triamcinolone) (Triamcinolone) 11:02:00 [facility] Alex Shahalog 2019-03-22 Completed [facility] - (Triamcinolone) (Triamcinolone) 11:02:00 [facility] Alex Shahalog 2019-03-22 Completed [facility] - (Triamcinolone) (Triamcinolone) 11:02:00 [facility] Alex Shahalog 2019-03-22 Completed [facility] - (Triamcinolone) (Triamcinolone) 11:02:00 [facility] Alex Shahalog 2019-03-22 Completed [facility] - (Triamcinolone) (Triamcinolone) 11:02:00 [facility] Alex Johnson 2019-03-22 Completed [facility] - (Triamcinolone) (Triamcinolone) 11:02:00 [facility] Alex Johnson 2019-03-22 Completed [facility] - (Triamcinolone) (Triamcinolone) 11:02:00 [facility] LIDOCAINE HCL LIDOCAINE HCL 2019-03-22 Completed [facility] - 10MG/ML 10MG/ML 11:01:00 [facility] LIDOCAINE HCL LIDOCAINE HCL 2019-03-22 Completed [facility] - 10MG/ML 10MG/ML 11:01:00 [facility] LIDOCAINE HCL LIDOCAINE HCL 2019-03-22 Completed [facility] - 10MG/ML 10MG/ML 11:01:00 [facility] LIDOCAINE HCL LIDOCAINE HCL 2019-03-22 Completed [facility] - 10MG/ML 10MG/ML 11:01:00 [facility] LIDOCAINE HCL LIDOCAINE HCL 2019-03-22 Completed [facility] - 10MG/ML 10MG/ML 11:01:00 [facility] LIDOCAINE HCL LIDOCAINE HCL 2019-03-22 Completed [facility] - 10MG/ML 10MG/ML 11:01:00 [facility] LIDOCAINE HCL LIDOCAINE HCL 2019-03-22 Completed [facility] - 10MG/ML 10MG/ML 11:01:00 [facility] LIDOCAINE HCL LIDOCAINE HCL 2019-03-22 Completed [facility] - 10MG/ML 10MG/ML 11:01:00 [facility] Hyalgan 20 mg Hyalgan 20 mg 2019-03-22 Com[facility] - 10:58:00 [facility] Hyalgan 20 mg Hyalgan 20 mg 2019-03-22 Completed [facility] pirit - 10:58:00 [facility] Hyalgan 20 mg Hyalgan 20 mg 2019-03-22 Completed [facility] - 10:58:00 [facility] Hyalgan 20 mg Hyalgan 20 mg 2019-03-22 Completed [facility] - 10:58:00 [facility] Hyalgan 20 mg Hyalgan 20 mg 2019-03-22 Completed [facility] - 10:58:00 [facility] Hyalgan 20 mg Hyalgan 20 mg 2019-03-22 Completed [facility] - 10:58:00 [facility] Hyalgan 20 mg Hyalgan 20 mg 2019-03-22 Completed [facility] - 10:58:00 [facility] Hyalgan 20 mg Hyalgan 20 mg 2019-03-22 Completed [facility] - 10:58:00 [facility] Vital Signs Vital Name Observation Time Observation Value Comments Source Systolic blood 2022-07-30 19:50:00 134 mm[Hg] Univer sity of pressure [facility] Diastolic blood 2022-07-30 19:50:00 83 mm[Hg] [facility] Heart rate 2022-07-30 19:50:00 77 /min [facility] Body temperature 2022-07-30 19:50:[address] [facility] Respiratory rate 2022-07-30 19:50:00 17 /min [facility] Body height 2022-07-30 19:50:00 144.8 cm [facility] Body weight 2022-07-30 19:50:00 108.909 kg [facility] BMI 2022-07-30 19:50:00 51.96 kg/m2 [facility] Oxygen saturation in 2022-07-30 19:50:00 91 /min [facility] blood by [facility] Pulse oximetry Branch height 2022-04-14 13:45:00 60 [in_i] [facility] - [facility] weight 2022-04-14 13:45:00 220 [lb_av] [facility] - [facility] bmi 2022-04-14 13:45:00 42.96 kg/m2 [facility] - [facility] blood pressure 2022-04-14 13:45:00 145 mm[Hg] [facility] - systolic [facility] blood pressure 2022-04-14 13:45:00 84 mm[Hg] [facility] - diastolic [facility] height 2021-12-24 14:30:00 60 [in_i] [facility] - [facility] weight 2021-12-24 14:30:00 221 [lb_av] [facility] - [facility] temperature 2021-12-24 14:30:00 98.2 [degF] [facility] - [facility] bmi 2021-12-24 14:30:00 43.16 kg/m2 [facility] - [facility] blood pressure 2021-12-24 14:30:00 130 mm[Hg] [facility] - systolic [facility] blood pressure 2021-12-24 14:30:00 84 mm[Hg] [facility] - diastolic [facility] height 2021-10-22 13:45:00 60 [in_i] [facility] - [facility] weight 2021-10-22 13:45:00 225 [lb_av] [facility] - [facility] temperature 2021-10-22 13:45:00 97.8 [degF] [facility] - [facility] bmi 2021-10-22 13:45:00 43.94 kg/m2 [facility] - [facility] blood pressure 2021-10-22 13:45:00 136 mm[Hg] [facility] - systolic [facility] blood pressure 2021-10-22 13:45:00 84 mm[Hg] [facility] - diastolic [facility] height 2021-10-01 15:30:00 60 [in_i] [facility] - [facility] weight 2021-10-01 15:30:00 225 [lb_av] [facility] - [facility] bmi 2021-10-01 15:30:00 43.94 kg/m2 [facility] - [facility] blood pressure 2021-10-01 15:30:00 140 mm[Hg] [facility] - systolic [facility] blood pressure 2021-10-01 15:30:00 79 mm[Hg] [facility] - diastolic [facility] height 2021-08-26 15:45:00 60 [in_i] [facility] - [facility] weight 2021-08-26 15:45:00 225 [lb_av] [facility] - [facility] temperature 2021-08-26 15:45:00 98.4 [degF] [facility] - [facility] bmi 2021-08-26 15:45:00 43.94 kg/m2 [facility] - [facility] blood pressure 2021-08-26 15:45:00 146 mm[Hg] [facility] - systolic [facility] blood pressure 2021-08-26 15:45:00 82 mm[Hg] [facility] - diastolic [facility] height 2021-08-01 10:30:00 60 [in_i] [facility] - [facility] weight 2021-08-01 10:30:00 225 [lb_av] [facility] - [facility] bmi 2021-08-01 10:30:00 43.94 kg/m2 [facility] - [facility] blood pressure 2021-08-01 10:30:00 142 mm[Hg] [facility] - systolic [facility] blood pressure 2021-08-01 10:30:00 72 mm[Hg] [facility] - diastolic [facility] height 2021-07-25 11:00:00 60 [in_i] [facility] - [facility] weight 2021-07-25 11:00:00 225 [lb_av] [facility] - [facility] temperature 2021-07-25 11:00:00 97.3 [degF] [facility] bmi 2021-07-25 11:00:00 43.94 kg/m2 [facility] blood pressure 2021-07-25 11:00:00 140 mm[Hg] [facility] - systolic [facility] blood pressure 2021-07-25 11:00:00 92 mm[Hg] [facility] - diastolic [facility] height 2021-05-09 16:12:00 60 [in_i] [facility] weight 2021-05-09 16:12:00 220 [lb_av] [facility] bmi 2021-05-09 16:12:00 42.96 kg/m2 [facility] BP Systolic 2022-07-31 08:43:00 132 mm[Hg] BP Diastolic 2022-07-31 08:43:00 72 mm[Hg] Weight Measured 2022-07-31 08:43:00 236.60 pounds Height Measured 2022-07-31 08:43:00 59.00 inches Body Temperature 2022-07-31 08:43:00 97.10 degrees Heart Rate 2022-07-31 08:43:00 76.00 /min Respiratory Rate 2022-07-31 08:43:00 BP Systolic 2022-07-03 15:00:00 139 mm[Hg] BP Diastolic 2022-07-03 15:00:00 82 mm[Hg] Weight Measured 2022-07-03 15:00:00 237.20 pounds Height Measured 2022-07-03 15:00:00 59.00 inches Body Temperature 2022-07-03 15:00:00 97.50 degrees Heart Rate 2022-07-03 15:00:00 91.00 /min Respiratory Rate 2022-07-03 15:00:00 24.00 /min BP Systolic 2022-04-03 14:34:00 169 mm[Hg] BP Diastolic 2022-04-03 14:34:00 83 mm[Hg] Weight Measured 2022-04-03 14:34:00 230.40 pounds Height Measured 2022-04-03 14:34:00 59.00 inches Body Temperature 2022-04-03 14:34:00 97.50 degrees Heart Rate 2022-04-03 14:34:00 97.00 /min Respiratory Rate 2022-04-03 14:34:00 BP Systolic 2022-03-27 14:03:00 118 mm[Hg] BP Diastolic 2022-03-27 14:03:00 71 mm[Hg] Weight Measured 2022-03-27 14:03:00 227.40 pounds Height Measured 2022-03-27 14:03:00 59.00 inches Body Temperature 2022-03-27 14:03:00 97.40 degrees Heart Rate 2022-03-27 14:03:00 78.00 /min Respiratory Rate 2022-03-27 14:03:00 21.00 /min BP Systolic 2022-03-12 13:40:00 140 mm[Hg] BP Diastolic 2022-03-12 13:40:00 81 mm[Hg] Weight Measured 2022-03-12 13:40:00 229.40 pounds Height Measured 2022-03-12 13:40:00 59.00 inches Body Temperature 2022-03-12 13:40:00 98.00 degrees Heart Rate 2022-03-12 13:40:00 94.00 /min Respiratory Rate 2022-03-12 13:40:00 16.00 /min BP Systolic 2022-02-24 10:31:00 136 mm[Hg] BP Diastolic 2022-02-24 10:31:00 75 mm[Hg] Weight Measured 2022-02-24 10:31:00 227.60 pounds Height Measured 2022-02-24 10:31:00 59.00 inches Body Temperature 2022-02-24 10:31:00 97.50 degrees Heart Rate 2022-02-24 10:31:00 69.00 /min Respiratory Rate 2022-02-24 10:31:00 BP Systolic 2021-12-10 15:27:00 136 mm[Hg] BP Diastolic 2021-12-10 15:27:00 72 mm[Hg] Weight Measured 2021-12-10 15:27:00 224.00 pounds Height Measured 2021-12-10 15:27:00 59.00 inches Body Temperature 2021-12-10 15:27:00 97.30 degrees Heart Rate 2021-12-10 15:27:00 72.00 /min Respiratory Rate 2021-12-10 15:27:00 BP Systolic 2021-10-21 16:53:00 134 mm[Hg] BP Diastolic 2021-10-21 16:53:00 81 mm[Hg] Weight Measured 2021-10-21 16:53:00 226.80 pounds Height Measured 2021-10-21 16:53:00 59.00 inches Body Temperature 2021-10-21 16:53:00 97.40 degrees Heart Rate 2021-10-21 16:53:00 69.00 /min Respiratory Rate 2021-10-21 16:53:00 16.00 /min BP Systolic 2021-10-10 16:42:00 BP Diastolic 2021-10-10 16:42:00 Weight Measured 2021-10-10 16:42:00 224.80 pounds Height Measured 2021-10-10 16:42:00 59.00 inches Body Temperature 2021-10-10 16:42:00 97.20 degrees Heart Rate 2021-10-10 16:42:00 73.00 /min Respiratory Rate 2021-10-10 16:42:00 BP Systolic 2021-08-27 14:22:00 BP Diastolic 2021-08-27 14:22:00 Weight Measured 2021-08-27 14:22:00 218.00 pounds Height Measured 2021-08-27 14:22:00 59.00 inches Body Temperature 2021-08-27 14:22:00 Heart Rate 2021-08-27 14:22:00 Respiratory Rate 2021-08-27 14:22:00 BP Systolic 2021-08-20 16:45:00 BP Diastolic 2021-08-20 16:45:00 Weight Measured 2021-08-20 16:45:00 218.60 pounds Height Measured 2021-08-20 16:45:00 59.00 inches Body Temperature 2021-08-20 16:45:00 97.10 degrees Heart Rate 2021-08-20 16:45:00 73.00 /min Respiratory Rate 2021-08-20 16:45:00 BP Systolic 2021-08-20 16:23:00 149 mm[Hg] BP Diastolic 2021-08-20 16:23:00 93 mm[Hg] Weight Measured 2021-08-20 16:23:00 218.60 pounds Height Measured 2021-08-20 16:23:00 59.00 inches Body Temperature 2021-08-20 16:23:00 97.10 degrees Heart Rate 2021-08-20 16:23:00 73.00 /min Respiratory Rate 2021-08-20 16:23:00 BP Systolic 2021-06-13 16:18:00 161 mm[Hg] BP Diastolic 2021-06-13 16:18:00 77 mm[Hg] Weight Measured 2021-06-13 16:18:00 229.00 pounds Height Measured 2021-06-13 16:18:00 59.00 inches Body Temperature 2021-06-13 16:18:00 98.30 degrees Heart Rate 2021-06-13 16:18:00 73.00 /min Respiratory Rate 2021-06-13 16:18:00 Procedures Procedure Date / Time Performed Performing Clinician Sourc e FLU 2022-07-30 20:03:02 Sandeep [facility] [place] VACC([id number]),65+YR, Medical [place] 0.5 ML,IM,ADJUVANTED,QUAD( FLUAD) ASSIGNMENT OF BENEFITS 2022-07-30 19:33:55 Doctor Unassigned, No [facility] Name Medical Branch REFERRAL- 2022-07-03 05:01:00 Doctor Unassigned, No [facility] REQUEST/RESPONSE Name [facility] Plan of Care Planned Activity Planned Date Details Comments Source Goal Plan of Care Note [code = 37921-0] Goal Plan of Care Note [code = 55031-5] Goal Plan of Care Note [code = 09757-6] Goal Plan of Care Note [code = 81124-3] Goal Plan of Care Note [code = 36302-5] Goal Plan of Care Note [code = 12124-7] Goal Plan of Care Note [code = 14641-0] Goal Plan of Care Note [code = 67138-5] Goal Plan of Care Note [code = 03219-2] Goal Plan of Care Note [code = 38627-1] Goal Plan of Care Note [code = 06289-2] Goal Plan of Care Note [code = 43650-8] Goal Plan of Care Note [code = 49791-0] Goal Plan of Care Note [code = 45356-1] Goal Plan of Care Note [code = 99133-7] Goal Plan of Care Note [code = 45121-3] Goal Plan of Care Note [code = 07588-3] Goal Plan of Care Note [code = 48833-1] Goal Plan of Care Note [code = 86781-2] Goal Plan of Care Note [code = 24572-6] Goal Plan of Care Note [code = 08933-7] Goal Plan of Care Note [code = 74775-6] Goal Plan of Care Note [code = 69277-0] Goal Plan of Care Note [code = 80743-4] Goal Plan of Care Note [code = 08556-5] Goal Plan of Care Note [code = 57986-9] Goal Plan of Care Note [code = 52078-0] Goal Plan of Care Note [code = 52824-8] Goal Plan of Care Note [code = 80005-1] Goal Plan of Care Note [code = 97367-2] Goal Plan of Care Note [code = 21188-5] Goal Plan of Care Note [code = 14581-4] Goal Plan of Care Note [code = 02194-7] Goal Plan of Care Note [code = 92900-6] Goal Plan of Care Note [code = 96781-7] Goal Plan of Care Note [code = 15801-9] Goal Plan of Care Note [code = 71920-2] Goal Plan of Care Note [code = 22352-1] Goal Plan of Care Note [code = 82518-4] Goal Plan of Care Note [code = 20049-8] Goal Plan of Care Note [code = 33779-9] Goal Plan of Care Note [code = 46749-2] Goal Plan of Care Note [code = 96845-7] Goal Plan of Care Note [code = 79201-9] Goal Plan of Care Note [code = 92367-3] Goal Plan of Care Note [code = 34444-7] Goal Plan of Care Note [code = 89889-6] Goal Plan of Care Note [code = 08692-1] Goal Plan of Care Note [code = 48748-3] Goal Plan of Care Note [code = 21472-9] Goal Plan of Care Note [code = 90292-9] Goal Plan of Care Note [code = 76022-7] Goal Plan of Care Note [code = 75199-7] Goal Plan of Care Note [code = 08409-2] Goal Plan of Care Note [code = 36102-3] Goal Plan of Care Note [code = 67266-5] Goal Plan of Care Note [code = 90361-7] Goal Plan of Care Note [code = 64342-2] Goal Plan of Care Note [code = 13522-6] Goal Plan of Care Note [code = 95599-4] Goal Plan of Care Note [code = 11275-8] Goal Plan of Care Note [code = 66047-4] Goal Plan of Care Note [code = 35443-1] Goal Plan of Care Note [code = 29169-1] Goal Plan of Care Note [code = 37851-0] Goal Plan of Care Note [code = 20449-1] Goal Plan of Care Note [code = 56206-1] Goal Plan of Care Note [code = 93122-1] Goal Plan of Care Note [code = 82083-1] Goal Plan of Care Note [code = 91107-2] Goal Plan of Care Note [code = 69094-2] Goal Plan of Care Note [code = 74688-7] Goal Plan of Care Note [code = 01156-0] Goal Plan of Care Note [code = 28273-7] Goal Plan of Care Note [code = 11133-9] Goal Plan of Care Note [code = 85042-2] Goal Plan of Care Note [code = 54473-5] Goal Plan of Care Note [code = 78127-4] Goal Plan of Care Note [code = 24517-5] Goal Plan of Care Note [code = 17463-2] Goal Plan of Care Note [code = 06867-3] Goal Plan of Care Note [code = 88290-7] Goal Plan of Care Note [code = 56142-0] Goal Plan of Care Note [code = 19264-7] Goal Plan of Care Note [code = 81212-9] Goal Plan of Care Note [code = 03160-6] Goal Plan of Care Note [code = 26096-7] Goal Plan of Care Note [code = 90352-3] Goal Plan of Care Note [code = 77405-7] Goal Plan of Care Note [code = 60882-4] Goal Plan of Care Note [code = 82419-5] Goal Plan of Care Note [code = 61848-0] Goal Plan of Care Note [code = 71680-2] Goal Plan of Care Note [code = 89313-7] Goal Plan of Care Note [code = 66990-0] Goal Plan of Care Note [code = 82613-6] Goal Plan of Care Note [code = 95006-8] Goal Plan of Care Note [code = 10130-9] Goal Plan of Care Note [code = 77450-8] Goal Plan of Care Note [code = 86269-5] Goal Plan of Care Note [code = 85381-7] Goal Plan of Care Note [code = 93969-9] Goal Plan of Care Note [code = 41578-0] Goal Plan of Care Note [code = 82688-0] Goal Plan of Care Note [code = 39189-7] Goal Plan of Care Note [code = 59686-3] Goal Plan of Care Note [code = 94376-1] Goal Plan of Care Note [code = 58960-4] Goal Plan of Care Note [code = 08996-2] Goal Plan of Care Note [code = 89158-5] Goal Plan of Care Note [code = 39584-8] Goal Plan of Care Note [code = 06320-9] Goal Plan of Care Note [code = 36346-6] Goal Plan of Care Note [code = 28368-3] Goal Plan of Care Note [code = 26582-0] Goal Plan of Care Note [code = 64193-3] Goal Plan of Care Note [code = 77778-3] Goal Plan of Care Note [code = 12685-0] Goal Plan of Care Note [code = 59059-9] Goal Plan of Care Note [code = 75454-5] Goal Plan of Care Note [code = 28576-6] Goal Plan of Care Note [code = 21787-5] Goal Plan of Care Note [code = 29660-7] Goal Plan of Care Note [code = 62285-3] Goal Plan of Care Note [code = 09970-2] Goal Plan of Care Note [code = 74177-2] Goal Plan of Care Note [code = 52243-4] Goal Plan of Care Note [code = 21502-0] Goal Plan of Care Note [code = 06185-5] Goal Plan of Care Note [code = 29705-1] Goal Plan of Care Note [code = 92744-1] Goal Plan of Care Note [code = 57509-8] Goal Plan of Care Note [code = 81105-8] Goal Plan of Care Note [code = 03725-6] Goal Plan of Care Note [code = 47206-3] Goal Plan of Care Note [code = 97668-5] Goal Plan of Care Note [code = 73656-9] Goal Plan of Care Note [code = 85793-9] Goal Plan of Care Note [code = 59898-6] Goal Plan of Care Note [code = 36243-1] Goal Plan of Care Note [code = 45705-7] Goal Plan of Care Note [code = 49810-1] Goal Plan of Care Note [code = 53376-5] Goal Plan of Care Note [code = 36091-3] Goal Plan of Care Note [code = 34839-0] Goal Plan of Care Note [code = 55862-8] Goal Plan of Care Note [code = 61272-7] Goal Plan of Care Note [code = 37758-6] Goal Plan of Care Note [code = 25490-4] Goal Plan of Care Note [code = 12961-0] Goal Plan of Care Note [code = 64774-2] Goal Plan of Care Note [code = 27838-4] Goal Plan of Care Note [code = 77794-3] Goal Plan of Care Note [code = 54131-9] Goal Plan of Care Note [code = 76423-9] Goal Plan of Care Note [code = 09043-8] Goal Plan of Care Note [code = 65630-4] Goal Plan of Care Note [code = 79875-3] Goal Plan of Care Note [code = 23670-5] Goal Plan of Care Note [code = 15984-2] Goal Plan of Care Note [code = 76418-5] Goal Plan of Care Note [code = 95934-1] Goal Plan of Care Note [code = 74912-5] Goal Plan of Care Note [code = 34811-4] Goal Plan of Care Note [code = 93043-8] Goal Plan of Care Note [code = 03733-6] Goal Plan of Care Note [code = 22501-7] Goal Plan of Care Note [code = 75198-1] Goal Plan of Care Note [code = 19140-2] Goal Plan of Care Note [code = 21345-0] Goal Plan of Care Note [code = 61755-8] Goal Plan of Care Note [code = 63867-9] Goal Plan of Care Note [code = 98616-0] Goal Plan of Care Note [code = 07227-5] Goal Plan of Care Note [code = 02555-2] Goal Plan of Care Note [code = 93863-6] Goal Plan of Care Note [code = 73424-5] Goal Plan of Care Note [code = 93313-6] Goal Plan of Care Note [code = 31332-4] Goal Plan of Care Note [code = 23015-5] Goal Plan of Care Note [code = 70556-8] Goal Plan of Care Note [code = 86675-9] Goal Plan of Care Note [code = 15532-8] Goal Plan of Care Note [code = 34483-6] Goal Plan of Care Note [code = 39347-2] Goal Plan of Care Note [code = 77407-6] Goal Plan of Care Note [code = 16352-4] Goal Plan of Care Note [code = 15202-4] Goal Plan of Care Note [code = 76411-3] Goal Plan of Care Note [code = 81969-2] Goal Plan of Care Note [code = 28443-2] Goal Plan of Care Note [code = 77763-8] Goal Plan of Care Note [code = 23504-5] Goal Plan of Care Note [code = 81496-8] Goal Plan of Care Note [code = 61615-2] Goal Plan of Care Note [code = 51712-6] Goal Plan of Care Note [code = 45870-0] Goal Plan of Care Note [code = 16437-3] Goal Plan of Care Note [code = 05580-1] Goal Plan of Care Note [code = 82977-9] Goal Plan of Care Note [code = 77361-7] Goal Plan of Care Note [code = 55625-2] Goal Plan of Care Note [code = 59076-8] Goal Plan of Care Note [code = 07571-1] Goal Plan of Care Note [code = 68965-8] Goal Plan of Care Note [code = 01290-3] Goal Plan of Care Note [code = 58842-9] Goal Plan of Care Note [code = 84121-0] Goal Plan of Care Note [code = 87403-7] Goal Plan of Care Note [code = 49496-3] Goal Plan of Care Note [code = 70541-8] Goal Plan of Care Note [code = 10461-2] Goal Plan of Care Note [code = 03609-2] Goal Plan of Care Note [code = 69067-1] Goal Plan of Care Note [code = 20305-0] Goal Plan of Care Note [code = 48941-5] Goal Plan of Care Note [code = 93799-5] Goal Plan of Care Note [code = 92596-0] Goal Plan of Care Note [code = 04421-0] Goal Plan of Care Note [code = 75232-6] Goal Plan of Care Note [code = 76048-2] Goal Plan of Care Note [code = 07243-4] Goal Plan of Care Note [code = 83498-2] Goal Plan of Care Note [code = 23879-6] Goal Plan of Care Note [code = 21037-6] Goal Plan of Care Note [code = 28671-8] Goal Plan of Care Note [code = 93811-0] Goal Plan of Care Note [code = 97790-1] Goal Plan of Care Note [code = 05294-0] Goal Plan of Care Note [code = 27604-2] Goal Plan of Care Note [code = 06515-1] Goal Plan of Care Note [code = 09428-3] Goal Plan of Care Note [code = 93564-7] Goal Plan of Care Note [code = 30066-2] Goal Plan of Care Note [code = 30673-4] Goal Plan of Care Note [code = 16407-9] Goal Plan of Care Note [code = 51187-7] Goal Plan of Care Note [code = 42666-7] Goal Plan of Care Note [code = 97990-5] Goal Plan of Care Note [code = 97239-2] Goal Plan of Care Note [code = 58289-3] Goal Plan of Care Note [code = 81522-3] Goal Plan of Care Note [code = 01383-7] Goal Plan of Care Note [code = 38891-1] Goal Plan of Care Note [code = 42154-2] Goal Plan of Care Note [code = 79167-6] Goal Plan of Care Note [code = 23967-3] Goal Plan of Care Note [code = 56573-8] Goal Plan of Care Note [code = 68678-8] Goal Plan of Care Note [code = 91706-0] Goal Plan of Care Note [code = 46495-3] Goal Plan of Care Note [code = 18674-9] Goal Plan of Care Note [code = 76173-7] Goal Plan of Care Note [code = 63503-4] Goal Plan of Care Note [code = 62544-7] Goal Plan of Care Note [code = 72822-0] Goal Plan of Care Note [code = 14876-1] Goal Plan of Care Note [code = 23916-1] Goal Plan of Care Note [code = 20697-0] Goal Plan of Care Note [code = 39993-6] Goal Plan of Care Note [code = 45808-0] Goal Plan of Care Note [code = 46060-6] Encounters Start End Encounter Admission Attending Care Care Encounter Source Date/Time Date/Time Type Type Clinicians Facility Department ID 2022-04-10 Outpatient [facility]LMLC STLMLC [id number] Common 07:57:00 [facility] 2022-04-09 Outpatient STLMLC STLMLC [id number] Common 17:02:00 [facility] 2022-02-03 Outpatient STLMLC STLMLC [id number] Common 10:37:15 [facility] 2021-12-23 Outpatient STLMLC STLMLC [id number] Common 14:56:00 [facility] 2021-12-04 Outpatient STLMLC STLMLC [id number] Common 15:19:00 [facility] 2021-10-29 Outpatient STLMLC STLMLC [id number] Common 16:15:01 [facility] 2021-10-21 Outpatient STLMLC STLMLC [id number] Common 15:08:00 [facility] 2021-10-16 Outpatient STLMLC STLMLC [id number] Common 14:40:22 [facility] 2021-10-16 Outpatient STLMLC STLMLC Common 14:26:36 [facility] 2021-10-16 Outpatient STLMLC STLMLC Common 14:15:34 [facility] 2021-10-16 Outpatient STLMLC STLMLC Common 14:12:05 [facility] 2021-10-16 Outpatient STLMLC STLMLC Common 14:11:16 [facility] 2021-10-16 Outpatient STLMLC STLMLC Common 11:16:32 [facility] 2020-11-28 Inpatient Pepper, HCAPM HCAPM [id number] [facility] 10:53:[address] 2022-08-21 2022-08-21 Outpatient Winnie RUELAS [facility] [id number] Univers 14:00:00 23:59:00 KAHLIL briones [facility] 2022-07-31 2022-07-31 Outpatient [facility] SFA [id number] Mio 08:33:27 08:33:27 [address] 2022-07-31 2022-07-31 Outpatient [id number] 00:00:00 00:00:00 Visit [id number] 2022-07-30 2022-07-30 Outpatient Winnie RUELAS [facility] [id number] [employer] 13:40:00 14:11:31 [facility]iones [facility] 2022-07-30 2022-07-30 Office Sandeep [facility] [id number] Univers 13:40:00 14:11:31 Visit Kahlil LEPE 350.1.13.10 [facility] [place] [id number] Ca dical [facility] [facility] 2022-07-30 2022-07-30 Orders Doctor IRINA [id number] Univers 00:00:00 00:00:00 Only Unassigned, YESSICA 350.1.13.10 ity of [place] [facility] 4.2.7.2.686 Chandu as [phone] [address] 2022-07-18 2022-07-18 Outpatient [id number] 00:00:00 00:00:00 Visit [id number] 2022-07-03 2022-07-03 Outpatient SFA SFA [id number] 022 Mio 14:59:47 14:59:47 1013 F Fredo 2022-07-03 2022-07-03 Outpatient [id number]- [id number] g54040-o 00:00:00 00:00:00 Visit d032-37e2 876-48b5-b -a253-41d 388-45dd78 v3266f37j 16f12c 2022-07-03 2022-07-03 Orders Doctor IRINA [id number] [facility] 00:00:00 00:00:00 Only Unassigned, YESSICA 350.1.13.10 [facility] [place] [facility] 4.2.7.2.686 Chandu as [id number] [address] 2022-04-14 2022-04-[address] [facility] [id number] Co mmon 00:00:00 00:00:00 VISIT Yan FERREIRA PT - CHI LEVEL 4 [facility] 2022-04-03 2022-04-03 Outpatient [id number]- [id number] 8d661x-3 00:00:00 00:00:00 Visit 0kl7-7678 bd9-4992-9 -5a13-562 j43-69745b 34d2x642t 0c629s 2022-03-27 2022-03-27 Outpatient [id number]- [id number] cf0553-5 00:00:00 00:00:00 Visit 6g11-49i3 g79-92m8-8 -9h75-ar2 h63-rp1g7c o2ek8i3k5 b9f0e5 2022-02-27 2022-02-27 (TEL) STLMLC STL[facility] [id number] Co mmon 00:00:00 00:00:00 [facility] 2022-02-25 2022-02-25 (TEL) STLMLC STLMLC [id number] Co mmon 00:00:00 00:00:00 [facility] 2022-02-03 2022-02-03 (TEL) STLMLC STLMLC [id number] Co mmon 00:00:00 00:00:00 [facility] 2022-01-13 2022-01-13 (TEL) STLMLC STLMLC [id number] Co mmon 00:00:00 00:00:00 [facility] 2022-01-01 2022-01-01 (TEL) STLMLC STLMLC [id number] Co mmon 00:00:00 00:00:00 [facility] 2021-12-26 2021-12-26 (TEL) STLMLC STLMLC [id number] Co mmon 00:00:00 00:00:00 [facility] 2021-12-24 2021-12-24 OFFICE STLMLC STLMLC [id number] Co mmon 00:00:00 00:00:00 VISIT Merged with [facility] 4 [facility] 2021-12-04 2021-12-04 (TEL) STLMLC STLMLC [id number] Co mmon 00:00:00 00:00:00 [facility] 2021-11-21 2021-11-21 (TEL) STLMLC STLMLC [id number] Co mmon 00:00:00 00:00:00 [facility] 2021-10-23 2021-10-23 (TEL) STLMLC STLMLC [id number] Co mmon 00:00:00 00:00:00 [facility] 2021-10-22 2021-10-22 OFFICE STLMLC STLMLC [id number] Co mmon 00:00:00 00:00:00 VISIT Merged with [facility] 4 [facility] 2021-10-17 2021-10-17 (TEL) STLMLC STLMLC [id number] Co mmon 00:00:00 00:00:00 [facility] 2021-10-17 2021-10-17 (TEL) STLMLC STLMLC [id number] Co mmon 00:00:00 00:00:00 [facility] 2021-10-15 2021-10-15 (TEL) STLMLC STLMLC [id number] Co mmon 00:00:00 00:00:00 [facility] 2021-10-08 2021-10-08 (TEL) STLMLC STLMLC [id number] Co mmon 00:00:00 00:00:00 [facility] 2021-10-01 2021-10-01 NON-BILLAB STLMLC STLMLC [id number] Common 00:00:00 00:00:00 LE VISIT [facility] 2021-08-28 2021-08-28 (TEL) STLMLC STLMLC [id number] Co mmon 00:00:00 00:00:00 [facility] 2021-08-26 2021-08-26 NON-BILLAB STLMLC STLMLC [id number] Common 00:00:00 00:00:00 LE VISIT [facility] 2021-08-19 2021-08-19 (TEL) STLMLC STLMLC [id number] Co mmon 00:00:00 00:00:00 [facility] 2021-08-05 2021-08-05 (TEL) STLMLC STLMLC [id number] Co mmon 00:00:00 00:00:00 [facility] 2021-08-01 2021-08-01 (TEL) STLMLC STLMLC [id number] Co mmon 00:00:00 00:00:00 [facility] 2021-08-01 2021-08-01 NON-BILLAB STLMLC STLMLC [id number] Common 00:00:00 00:00:00 LE VISIT [facility] 2021-07-26 2021-07-26 (TEL) STLMLC STLMLC [id number] Co mmon 00:00:00 00:00:00 [facility] 2021-07-25 2021-07-25 Postop STLMLC STLMLC [id number] Co mmon 00:00:00 00:00:00 visit [facility] 2021-07-24 2021-07-24 (TEL) STLMLC STLMLC [id number] Co mmon 00:00:00 00:00:00 [facility] 2021-07-22 2021-07-22 (TEL) STLMLC STLMLC [id number] Co mmon 00:00:00 00:00:00 [facility] 2021-07-22 2021-07-22 (TEL) STLMLC STLMLC [id number] Co mmon 00:00:00 00:00:00 [facility] 2021-07-22 2021-07-22 (TEL) STLMLC STLMLC [id number] Co mmon 00:00:00 00:00:00 [facility] 2021-07-09 2021-07-09 (TEL) STLMLC STLMLC [id number] Co mmon 00:00:00 00:00:00 [facility] 2021-07-09 2021-07-09 (TEL) STLMLC STLMLC [id number] Co mmon 00:00:00 00:00:00 [facility] 2021-07-08 2021-07-08 (TEL) STLMLC STLMLC [id number] Co mmon 00:00:00 00:00:00 [facility] 2021-07-08 2021-07-08 (TEL) STLMLC STLMLC [id number] Co mmon 00:00:00 00:00:00 [facility] 2021-05-24 2021-05-24 (TEL) STLMLC STLMLC [id number] Co mmon 00:00:00 00:00:00 [facility] 2021-05-22 2021-05-22 (TEL) STLMLC STLMLC [id number] Co mmon 00:00:00 00:00:00 [facility] 2021-05-09 2021-05-09 (TEL) STLMLC STLMLC [id number] Co mmon 00:00:00 00:00:00 [facility] 2021-03-27 2021-03-27 Outpatient STLMLC STLMLC [id number] Common 00:00:00 00:00:00 [facility] 2021-02-26 2021-02-26 Outpatient STLMLC STLMLC [id number] Common 00:00:00 00:00:00 [facility] 2021-02-21 2021-02-21 Outpatient STLMLC STLMLC [id number] Common 00:00:00 00:00:00 [facility] 2021 2021 Outpatient STLMLC STLMLC [id number] Common 00:00:00 00:00:00 [facility] 2021-02-07 2021-02-07 Outpatient STLMLC STLMLC [id number] Common 00:00:00 00:00:00 [facility] 2021-02-04 2021-02-04 Outpatient STLMLC STLMLC [id number] Common 00:00:00 00:00:00 [facility] 2021-01-17 2021-01-17 Outpatient STLMLC STLMLC [id number] Common 00:00:00 00:00:00 [facility] 2020-12-24 2020-12-24 Outpatient STLMLC STLMLC [id number] Common 00:00:00 00:00:00 [facility] 2020-11-12 2020-11-12 Outpatient STLMLC STLMLC [id number] Common 00:00:00 00:00:00 [facility] 2020-10-30 2020-10-30 Outpatient STLMLC STLMLC [id number] Common 00:00:00 00:00:00 [facility] 2020-10-17 2020-10-17 Outpatient STLMLC STLMLC [id number] Common 00:00:00 00:00:00 [facility] 2020-08-21 2020-08-21 Outpatient STLMLC STLMLC [id number] Common 00:00:00 00:00:00 [facility] 2020-07-30 2020-07-30 Outpatient STLMLC STLMLC [id number] Common 00:00:00 00:00:00 [facility] 2020-06-12 2020-06-12 Outpatient STLMLC STLMLC [id number] Common 00:00:00 00:00:00 [facility] 2020-06-12 2020-06-12 Outpatient STLMLC STLMLC [id number] Common 00:00:00 00:00:00 [facility] 2020-02-02 2020-02-02 [id number] Common 14:45:00 14:45:00 [facility] 2020-01-31 2020-01-31 [facility] [id number] Common 15:06:00 15:06:00 [facility] 2020-01-26 2020-01-26 [facility] [id number] Common 15:15:00 15:15:00 [facility] 2020-01-18 2020-01-18 [facility] [id number] Common 14:31:00 14:31:00 [facility] 2020-01-16 2020-01-16 [facility] [id number] Common 15:30:00 15:30:00 t [facility] 2020-01-12 2020-01-12 [facility] [id number] Common 11:16:00 11:16:00 t [facility] 2019-12-21 2019-12-21 [facility] [id number] Common 13:30:00 13:30:00 [facility] 2019-12-09 2019-12-09 [facility] [id number] Common 10:41:00 10:41:00 [facility] 2019-10-22 2019-10-22 Emergency X [facility], [facility] ERT [id number] Univers 15:41:04 17:21:00 MICHAELA [facility] 2019-07-11 2019-07-11 [facility] [id number] Common 15:30:00 15:30:00 t [facility] 2019-04-05 2019-04-05 [facility] [id number] Common 11:00:00 11:00:00 t [facility] 2019-03-29 2019-03-29 [facility] [id number] Common 11:00:00 11:00:00 t [facility] 2019-03-22 2019-03-22 [facility] [id number] Common 10:30:00 10:30:00 t [facility] 2018-06-07 2018-06-07 [facility] [id number] Common 14:00:00 14:00:00 t [facility] Results Test Description Test Time Test Comments Results Result Comments Source COMPREHENSIVE METABOLIC PANEL 2022-08-01 00:00:00 Test Item Value Reference Range Interpretation Comme nts GLUCOSE (test code = 2217) 125 MG/DL BUN (test code = 2208) 13 MG/DL CREATININE (test code = 2214) 0.55 MG/DL eGFR (2020 CKD-EPI) (test code = 16027) 102 ML/MIN/1.73 CALC BUN/CREAT (test code = 2235) 24 RATIO SODIUM (test code = 2231) 143 MEQ/L POTASSIUM (test code = 2228) 4.7 MEQ/L CHLORIDE (test code = 2215) 105 MEQ/L CARBON DIOXIDE (test code = 2206) 29 MEQ/L CALCIUM (test code = 2209) 9.5 MG/DL PROTEIN, TOTAL (test code = 2229) 7.2 G/DL ALBUMIN (test code = 2201) 4.4 G/DL CALC GLOBULIN (test code = 2240) 2.8 G/DL CALC A/G RATIO (test code = 2234) 1.6 RATIO BILIRUBIN, TOTAL (test code = 2207) 0.4 MG/DL ALKALINE PHOSPHATASE (test code = 2204) 109 U/L AST (test code = 2218) 16 U/L ALT (test code = 2219) 9 U/L COMPREHENSIVE METABOLIC [id number] 00:00:00 Test Item Value Reference Range Interpretation Comments GLUCOSE (test code = 2217) 125 MG/DL BUN (test code = 2208) 13 MG/DL CREATININE (test code = 2214) 0.55 MG/DL eGFR (2020 CKD-EPI) (test 102 ML/MIN/1.73 code = 63830) CALC BUN/CREAT (test code = 24 RATIO 2235) SODIUM (test code = 2231) 143 MEQ/L POTASSIUM (test code = 2228) 4.7 MEQ/L CHLORIDE (test code = 2215) 105 MEQ/L CARBON DIOXIDE (test code = 29 MEQ/L 2206) CALCIUM (test code = 2209) 9.5 MG/DL PROTEIN, TOTAL (test code = 7.2 G/DL 2228) ALBUMIN (test code = 2201) 4.4 G/DL CALC GLOBULIN (test code = 2.8 G/DL 2240) CALC A/G RATIO (test code = 1.6 RATIO 2234) BILIRUBIN, TOTAL (test code = 0.4 MG/DL 2206) ALKALINE PHOSPHATASE (test 109 U/L code = 2204) AST (test code = 2218) 16 U/L ALT (test code = 2219) 9 U/L LIPID [id number] 00:00:00 Test Item Value Reference Range Interpretation Comments CHOLESTEROL (test code = 2210) 145 MG/DL TRIGLYCERIDES (test code = 2232) 125 MG/DL HDL CHOLESTEROL (test code = 2220) 55 MG/DL CALC LDL CHOL (test code = 2237) 69 MG/DL RISK RATIO LDL/HDL (test code = 1.25 RATIO 2238) LIPID [id number] 00:00:00 Test Item Value Reference Range Interpretation Comments CHOLESTEROL (test code = 2210) 145 MG/DL TRIGLYCERIDES (test code = 2232) 125 MG/DL HDL CHOLESTEROL (test code = 2220) 55 MG/DL CALC LDL CHOL (test code = 2237) 69 MG/DL RISK RATIO LDL/HDL (test code = 1.25 RATIO 2238) HEMOGLOBIN [id number] 00:00:00 Test Item Value Reference Range Interpretation Comments HEMOGLOBIN A1c (test code = 12095) 6.5 % HEMOGLOBIN [id number] 00:00:00 Test Item Value Reference Range Interpretation Comments HEMOGLOBIN A1c (test code = 88707) 6.5 % HEMOGLOBIN [id number] 00:00:00 Test Item Value Reference Range Interpretation Comments HEMOGLOBIN A1c (test code = 26954) 6.5 % SCR MAMM BILATERAL SWAPNA CAD [id number] 08:06:36 Name: Dinah : 1955 Sex: F - SCR MAMM BILATERAL SWAPNA CAD DIGITALBILATERAL DIGITAL SCREENING MAMMOGRAM 3D/2D WITH CAD: 06/13/2022LINICAL: Asymptomatic. Digital breast tomosynthesis was performed in addition to routine CC and MLO views. Current mammographic images were evaluated by [employer] CAD (computer-aided detection) software. Comparison is made to exams dated 02/18/2018 mammogram, 12/23/2016 mammogram - [facility], and 07/12/2015 mammogram -[facility]. There are scattered fibroglandular tissues in both breasts. Thereare benign calcifications in both breasts. There also are benign vascular calcifications in both breasts. No suspicious mass, architectural distortion, malignant type calcification, or lymph node abnormality detected. Breast architecture is stable compared to prior exams.IMPRESSION: BENIGNThere is no m ammographic evidence of malignancy. Resume annual screening mammography in one year. (06/14/2023) Dona lee/penrad:06/20/2022 08:06:36 Cigarette Maker: Jennifer Parekh MM, [facility] sent: BIRADS 1-2 Normal Mammogram BI-RADS: 2 BenignPAP TEST, THINPREP, [id number] 09:35:49 Test Item Value Reference Range Interpretation Comments SOURCE: (test Cervical/Endoc code = 8001) ervical SLIDES: (test 1 code = 8011) LMP: (test code SEE NOTE POST MENOPA USAL = 8021) SPECIMEN (NOTE) Satisfactory f or ADEQUACY: (test evaluation. Endocervical code = 07347) cells/transfor mation zone component present. INTERPRETATION: NILM/NO EPITH. (test code = ABNORMALITY;SE 90560) E BELOW ------- NEGATIVE FO R INTRAEPITHELIAL LESION OR MALIGNANCY ( NILM) --------- --------- --------- - IMMUNOPATHOLOGIST Cynthia Uribe : (test code = 8101) QC TECHNOLOGIST: Nayeli (test code = MichaelaSCT(ASC 8111) P)CT(IAC) LOCATION: (test (NOTE) Specimens pr ocessed and code = 56642) interpreted at [facility] [address] [place] [id number], , CLIA: [id number] CPT: (test code (NOTE) 48836 UNLESS OTHERWISE = 8140) INDICATED, COMP UTER AIDED AND CYTOTECHNOLOGIS T SCREENING PERFO RMED. The Pap test is a s creening test with an in herent, but low probabi lity of error. Your pat ient should be remin ded to consult you imm ediately if she experien eloy any suspicious sign s or symptoms, regar dless of her Pap test re sult. An alternate repor t format containing imag es or consolidated pr ior Pap history is avai lable as applicable. PAP TEST, THINPREP, [id number] 00:00:00 Test Item Value Reference Range Interpretation Comments SOURCE: (test code = Cervical/Endocervical 8001) SLIDES: (test code = 1 8011) LMP: (test code = 8021) SEE NOTE SPECIMEN ADEQUACY: (test (NOTE) code = 15732) INTERPRETATION: (test NILM/NO EPITH. code = 19541) ABNORMALITY;SEE BELOW IMMUNOPATHOLOGIST: (test Cynthia Lara code = 8101) QC TECHNOLOGIST: (test Nayeli code = 8111) MichaelaSCT(ASCP)CT(IA C) LOCATION: (test code = (NOTE) 25042) CPT: (test code = 8140) (NOTE) PAP TEST, THINPREP, [id number] 00:00:00 Test Item Value Reference Range Interpretation Comments SOURCE: (test code = Cervical/Endocervical 8001) SLIDES: (test code = 1 8011) LMP: (test code = 8021) SEE NOTE SPECIMEN ADEQUACY: (test (NOTE) code = 65422) INTERPRETATION: (test NILM/NO EPITH. code = 14541) ABNORMALITY;SEE BELOW IMMUNOPATHOLOGIST: ([facility] QC TECHNOLOGIST: (test Nayeli code = 8111) Josessmagali,SCT(ASCP)CT(IA C) LOCATION: (test code = (NOTE) 04383) CPT: (test code = 8140) (NOTE) PAP TEST, THINPREP, [id number] 00:00:00 Test Item Value Reference Range Interpretation Comments SOURCE: (test code = Cervical/Endocervical 8001) SLIDES: (test code = 1 8011) LMP: (test code = 8021) SEE NOTE SPECIMEN ADEQUACY: (test (NOTE) code = 33943) INTERPRETATION: (test NILM/NO EPITH. code = 45366) ABNORMALITY;SEE BELOW IMMUNOPATHOLOGIST: (test [facility] = 8101) QC TECHNOLOGIST: (test Nayeli code = 8111) MichaelaSCT(ASCP)CT(IA C) LOCATION: (test code = (NOTE) 87513) CPT: (test code = 8140) (NOTE) PAP TEST, THINPREP, [id number] 00:00:00 Test Item Value Reference Range Interpretation Comments SOURCE: (test code = Cervical/Endocervical 8001) SLIDES: (test code = 1 8011) LMP: (test code = 8021) SEE NOTE SPECIMEN ADEQUACY: (test (NOTE) code = 89137) INTERPRETATION: (test NILM/NO EPITH. code = 00878) ABNORMALITY;SEE BELOW IMMUNOPATHOLOGIST: (test [facility] code = 8101) QC TECHNOLOGIST: (test Nayeli code = 8111) Michaela,SCT(ASCP)CT(IA C) LOCATION: (test code = (NOTE) 37432) CPT: (test code = 8140) (NOTE) PAP TEST, THINPREP, [id number] 00:00:00 Test Item Value Reference Range Interpretation Comments SOURCE: (test code = Cervical/Endocervical 8001) SLIDES: (test code = 1 8011) LMP: (test code = 8021) SEE NOTE SPECIMEN ADEQUACY: (test (NOTE) code = 56635) INTERPRETATION: (test NILM/NO EPITH. code = 89764) ABNORMALITY;SEE BELOW IMMUNOPATHOLOGIST: (test [facility] = 8101) QC TECHNOLOGIST: (test Nayeli code = 8111) Kussad,SCT(ASCP)CT(IA C) LOCATION: (test code = (NOTE) 63889) CPT: (test code = 8140) (NOTE) PAP TEST, THINPREP, [id number] 00:00:00 Test Item Value Reference Range Interpretation Comments SOURCE: (test code = Cervical/Endocervical 8001) SLIDES: (test code = 1 8011) LMP: (test code = 8021) SEE NOTE SPECIMEN ADEQUACY: (test (NOTE) code = 56441) INTERPRETATION: (test NILM/NO EPITH. code = 20519) ABNORMALITY;SEE BELOW IMMUNOPATHOLOGIST: (test Anniel Samuj code = 8101) QC TECHNOLOGIST: (test Nayeli code = 8111) Michaela,SCT(ASCP)CT(IA C) LOCATION: (test code = (NOTE) 85155) CPT: (test code = 8140) (NOTE) PAP TEST, THINPREP, [id number] 00:00:00 Test Item Value Reference Range Interpretation Comments SOURCE: (test code = Cervical/Endocervical 8001) SLIDES: (test code = 1 8011) LMP: (test code = 8021) SEE NOTE SPECIMEN ADEQUACY: (test (NOTE) code = 47685) INTERPRETATION: (test NILM/NO EPITH. code = 59749) ABNORMALITY;SEE BELOW IMMUNOPATHOLOGIST: (test [facility] = 8101) QC TECHNOLOGIST: (test Nayeli code = 8111) Michaela,SCT(ASCP)CT(IA C) LOCATION: (test code = (NOTE) 06240) CPT: (test code = 8140) (NOTE) HPV HIGH RISK WITH GENOTYPE, [id number] 15:22:15 Test Item Value Reference Range Interpretation Comments HPV HIGH RISK INTERP NEGATIVE NEGATIVE (test code = 39982) HPV 16 (test code = NEGATIVE 66094) HPV 18 (test code = NEGATIVE 85754) HPV, HR, OTHER NEGATIVE Testing meth odology is GENOTYPES (test code real-ti me PCR utilizing = 99770) hydrolysis prob es with the Elicia Shad 4800 system. The jaki t individually de tects genotypes 16 an d 18, as well as the oth er 12 high risk types (31,33,35,39,45 ,51,52,56 ,58,59,66,68). The expected result is negative. A neg ative result does not rule out the presence of HPV not included in the genotype set, a low leve l of infection or sp ecimen sampling error. UNLESS OTHERWISE INDIC ATED, ALL TESTING PERFORM ED ATCLINICAL PATH OLOGY LABORATORIES, [facility]. [address] [place] [address] LABORATORY DIRE CTOR: WALDO PHILLIPS M.D. CLIA NUMBER [id number] [facility] [place] [id number] HPV HIGH RISK WITH GENOTYPE, [id number] 00:00:00 Test Item Value Reference Range Interpretation Comments HPV HIGH RISK INTERP (test code = NEGATIVE 46150) HPV 16 (test code = 10595) NEGATIVE HPV 18 (test code = 59382) NEGATIVE HPV, HR, OTHER GENOTYPES (test code NEGATIVE = 31596) HPV HIGH RISK WITH GENOTYPE, [id number] 00:00:00 Test Item Value Reference Range Interpretation Comments HPV HIGH RISK INTERP (test code = NEGATIVE 73774) HPV 16 (test code = 85998) NEGATIVE HPV 18 (test code = 82090) NEGATIVE HPV, HR, OTHER GENOTYPES (test code NEGATIVE = 92450) HPV HIGH RISK WITH GENOTYPE, [id number] 00:00:00 Test Item Value Reference Range Interpretation Comments HPV HIGH RISK INTERP (test code = NEGATIVE 34062) HPV 16 (test code = 72819) NEGATIVE HPV 18 (test code = 73523) NEGATIVE HPV, HR, OTHER GENOTYPES (test code NEGATIVE = 08086) HPV HIGH RISK WITH GENOTYPE, [id number] 00:00:00 Test Item Value Reference Range Interpretation Comments HPV HIGH RISK INTERP (test code = NEGATIVE 95558) HPV 16 (test code = 49149) NEGATIVE HPV 18 (test code = 83182) NEGATIVE HPV, HR, OTHER GENOTYPES (test code NEGATIVE = 74064) HPV HIGH RISK WITH GENOTYPE, [id number] 00:00:00 Test Item Value Reference Range Interpretation Comments HPV HIGH RISK INTERP (test code = NEGATIVE 07311) HPV 16 (test code = 80999) NEGATIVE HPV 18 (test code = 92161) NEGATIVE HPV, HR, OTHER GENOTYPES (test code NEGATIVE = 05802) HPV HIGH RISK WITH GENOTYPE, [id number] 00:00:00 Test Item Value Reference Range Interpretation Comments HPV HIGH RISK INTERP (test code = NEGATIVE 82174) HPV 16 (test code = 12472) NEGATIVE HPV 18 (test code = 72861) NEGATIVE HPV, HR, OTHER GENOTYPES (test code NEGATIVE = 01280) HPV HIGH RISK WITH GENOTYPE, [id number] 00:00:00 Test Item Value Reference Range Interpretation Comments HPV HIGH RISK INTERP (test code = NEGATIVE 77467) HPV 16 (test code = 54407) NEGATIVE HPV 18 (test code = 04516) NEGATIVE HPV, HR, OTHER GENOTYPES (test code NEGATIVE = 34467) HEMOGLOBIN [id number] 05:01:22 Test Item Value Reference Range Interpretation Comments HEMOGLOBIN A1c (test code = 78102) 6.3 % 4.2-5.6 H CBC W/AUTO DIFF WITH [id number] 04:19:27 Test Item Value Reference Range Interpretation Comments WBC (test code = 6.0 K/UL 3.5-11.0 1001) RBC (test code = 4.53 M/UL 3.80-5.40 1002) HEMOGLOBIN (test 13.0 G/DL 11.5-15.5 code = 1003) HEMATOCRIT (test 39.8 % 34.0-45.0 code = 1004) MCV (test code = 87.9 fL 80.0-99.0 1005) MCH (test code = 28.7 PG 25.0-33.0 1006) MCHC (test code = 32.7 G/DL 31.0-36.0 1007) RDW (test code = 14.4 % 11.5-15.0 1038) NEUTROPHILS (test 62.2 % code = 1008) LYMPHOCYTES (test 29.5 % code = 1010) MONOCYTES (test code 5.3 % = 1011) EOSINOPHILS (test 2.2 % code = 1012) BASOPHILS (test code 0.5 % = 1013) IMMATURE 0.3 % GRANULOCYTES (test code = 1036) NUCLEATED RBCS (test 0.0 /100 See_Comment [Autom ated message] code = 1065) WBC'S The system Tracks.by generated this result transmitted ref erence range: 0.0. The reference range was not used to int erpret this result as normal/abnormal . PLATELET COUNT (test 234 K/UL 130-400 code = 1015) ABSOLUTE NEUTROPHILS 3.73 K/UL 1.50-7.50 (test code = 1066) ABSOLUTE LYMPHOCYTES 1.77 K/UL 1.00-4.00 (test code = 1067) ABSOLUTE MONOCYTES 0.32 K/UL 0.20-1.00 (test code = 1068) ABSOLUTE EOSINOPHILS 0.13 K/UL 0.00-0.50 (test code = 1040) ABSOLUTE BASOPHILS 0.03 K/UL 0.00-0.20 (test code = 1069) ABS IMMATURE 0.02 K/UL 0.00-0.10 GRANULOCYTES (test code = 1020) ABS NUCLEATED RBCS 0.00 K/UL 0.00-0.11 UNLESS O THERWISE (test code = 98720) INDICATE D, ALL TESTING PERFORM ED ATCLINICAL PATH OLOGY LABORATORIES, [facility]. [address] [place] [id number] [place] [address] DIRECTOR: WALDO COSTELLO M.D. CLIA NUMBER [id number] CAP ACCREDITATION N O. [id number] COMPREHENSIVE METABOLIC [id number] 03:45:12 Test Item Value Reference Range Interpretation Comments GLUCOSE (test code = 118 MG/DL 70-99 H 2216) BUN (test code = 14 MG/DL 8-23 2207) CREATININE (test 0.58 MG/DL 0.60-1.30 L code = 221) eGFR (2020 CKD-EPI) 100 >60 (test code = 96417) ML/MIN/1.73 CALC BUN/CREAT (test 24 RATIO 6-28 code = 2235) SODIUM (test code = 144 MEQ/L 512-257 2470) POTASSIUM (test code 4.7 MEQ/L 3.5-5.4 = 2228) CHLORIDE (test code 103 MEQ/L 95-107 = 2215) CARBON DIOXIDE (test 26 MEQ/L 19-31 code = 220) CALCIUM (test code = 9.5 MG/DL 8.5-10.5 2208) PROTEIN, TOTAL (test 7.3 G/DL 6.1-8.3 code = 2229) ALBUMIN (test code = 4.4 G/DL 3.5-5.2 2200) CALC GLOBULIN (test 2.9 G/DL 1.9-3.7 code = 2240) CALC A/G RATIO (test 1.5 RATIO 1.0-2.6 code = 2234) BILIRUBIN, TOTAL 0.3 MG/DL See_Comment [Automated message] (test code = 220) The syste m which generated this result transmit fior reference range : <=1.2. The refe rence range was not u sed to interpret th is result as normal/abnormal . ALKALINE PHOSPHATASE 110 U/L 40-140 (test code = 220) AST (test code = 13 U/L 9-40 2217) ALT (test code = 9 U/L 5-40 2218) LIPID [id number] 03:45:12 Test Item Value Reference Range Interpretation Comments CHOLESTEROL (test 164 MG/DL <200 code = 2210) TRIGLYCERIDES (test 112 MG/DL <150 code = 2232) HDL CHOLESTEROL (test 65 MG/DL >39 code = 2220) CALC LDL CHOL (test 79 MG/DL <100 NOTE: C ALCULATED LDL code = 2237) IS BASED ON ABBY-RAYGOZA METHOD WHICHINCLUDES ADJUSTABLE TRIGLYCERIDE:VL DL CHOLESTEROL RAT IO.THIS FACTOR VARIES B Y MEASURED TRIGLY CERIDE AND NON-HDLCHOL ESTEROL CONCENTRATIONS WITH INCREASED CALCU LATED LDL SEENIN HIGH ER TRIGLYCERIDE OR LOWER NON-HDL SPECIME NS. FOR MOREINFORMATION , SEE CLIENT ANNOUNCE MENT AT [email or web address] LDL/HDL 1.22 RATIO <3.22 (test code = 2238) COMPREHENSIVE METABOLIC [id number] 00:00:00 Test Item Value Reference Range Interpretation Comments GLUCOSE (test code = 2217) 118 MG/DL BUN (test code = 2208) 14 MG/DL CREATININE (test code = 2214) 0.58 MG/DL eGFR (2020 CKD-EPI) (test 100 ML/MIN/1.73 code = 63068) CALC BUN/CREAT (test code = 24 RATIO 2235) SODIUM (test code = 2231) 144 MEQ/L POTASSIUM (test code = 2228) 4.7 MEQ/L CHLORIDE (test code = 2215) 103 MEQ/L CARBON DIOXIDE (test code = 26 MEQ/L 2206) CALCIUM (test code = 2209) 9.5 MG/DL PROTEIN, TOTAL (test code = 7.3 G/DL 222) ALBUMIN (test code = 2201) 4.4 G/DL CALC GLOBULIN (test code = 2.9 G/DL 2240) CALC A/G RATIO (test code = 1.5 RATIO 2234) BILIRUBIN, TOTAL (test code = 0.3 MG/DL 2206) ALKALINE PHOSPHATASE (test 110 U/L code = 220) AST (test code = 2218) 13 U/L ALT (test code = 2219) 9 U/L COMPREHENSIVE METABOLIC [id number] 00:00:00 Test Item Value Reference Range Interpretation Comments GLUCOSE (test code = 2217) 118 MG/DL BUN (test code = 2208) 14 MG/DL CREATININE (test code = 2214) 0.58 MG/DL eGFR (2020 CKD-EPI) (test 100 ML/MIN/1.73 code = 29720) CALC BUN/CREAT (test code = 24 RATIO 2235) SODIUM (test code = 2231) 144 MEQ/L POTASSIUM (test code = 2228) 4.7 MEQ/L CHLORIDE (test code = 2215) 103 MEQ/L CARBON DIOXIDE (test code = 26 MEQ/L 6) CALCIUM (test code = 2209) 9.5 MG/DL PROTEIN, TOTAL (test code = 7.3 G/DL 2229) ALBUMIN (test code = 2201) 4.4 G/DL CALC GLOBULIN (test code = 2.9 G/DL 2240) CALC A/G RATIO (test code = 1.5 RATIO 2234) BILIRUBIN, TOTAL (test code = 0.3 MG/DL 2206) ALKALINE PHOSPHATASE (test 110 U/L code = 2204) AST (test code = 2218) 13 U/L ALT (test code = 2219) 9 U/L COMPREHENSIVE METABOLIC [id number] 00:00:00 Test Item Value Reference Range Interpretation Comments GLUCOSE (test code = 2217) 118 MG/DL BUN (test code = 2208) 14 MG/DL CREATININE (test code = 2214) 0.58 MG/DL eGFR (2020 CKD-EPI) (test 100 ML/MIN/1.73 code = 12069) CALC BUN/CREAT (test code = 24 RATIO 2235) SODIUM (test code = 2231) 144 MEQ/L POTASSIUM (test code = 2228) 4.7 MEQ/L CHLORIDE (test code = 2215) 103 MEQ/L CARBON DIOXIDE (test code = 26 MEQ/L 2205) CALCIUM (test code = 220) 9.5 MG/DL PROTEIN, TOTAL (test code = 7.3 G/DL 2228) ALBUMIN (test code = 220) 4.4 G/DL CALC GLOBULIN (test code = 2.9 G/DL 2239) CALC A/G RATIO (test code = 1.5 RATIO 2233) BILIRUBIN, TOTAL (test code = 0.3 MG/DL 2206) ALKALINE PHOSPHATASE (test 110 U/L code = 2204) AST (test code = 2218) 13 U/L ALT (test code = 2219) 9 U/L LIPID [id number] 00:00:00 Test Item Value Reference Range Interpretation Comments CHOLESTEROL (test code = 2210) 164 MG/DL TRIGLYCERIDES (test code = 2232) 112 MG/DL HDL CHOLESTEROL (test code = 2220) 65 MG/DL CALC LDL CHOL (test code = 2237) 79 MG/DL RISK RATIO LDL/HDL (test code = 1.22 RATIO 2238) LIPID [id number] 00:00:00 Test Item Value Reference Range Interpretation Comments CHOLESTEROL (test code = 2210) 164 MG/DL TRIGLYCERIDES (test code = 2232) 112 MG/DL HDL CHOLESTEROL (test code = 2220) 65 MG/DL CALC LDL CHOL (test code = 2237) 79 MG/DL RISK RATIO LDL/HDL (test code = 1.22 RATIO 2238) HEMOGLOBIN [id number] 00:00:00 Test Item Value Reference Range Interpretation Comments HEMOGLOBIN A1c (test code = 33220) 6.3 % HEMOGLOBIN [id number] 00:00:00 Test Item Value Reference Range Interpretation Comments HEMOGLOBIN A1c (test code = 51412) 6.3 % HEMOGLOBIN [id number] 00:00:00 Test Item Value Reference Range Interpretation Comments HEMOGLOBIN A1c (test code = 28080) 6.3 % CBC W/AUTO [id number] 00:00:00 Test Item Value Reference Range Interpretation Comments WBC (test code = 1001) 6.0 K/UL RBC (test code = 1002) 4.53 M/UL HEMOGLOBIN (test code = 1003) 13.0 G/DL HEMATOCRIT (test code = 1004) 39.8 % MCV (test code = 1005) 87.9 fL MCH (test code = 1006) 28.7 PG MCHC (test code = 1007) 32.7 G/DL RDW (test code = 1038) 14.4 % NEUTROPHILS (test code = 1008) 62.2 % LYMPHOCYTES (test code = 1010) 29.5 % MONOCYTES (test code = 1011) 5.3 % EOSINOPHILS (test code = 1012) 2.2 % BASOPHILS (test code = 1013) 0.5 % IMMATURE GRANULOCYTES (test 0.3 % code = 1036) NUCLEATED RBCS (test code = 0.0 /100WBC'S 1065) PLATELET COUNT (test code = 234 K/UL 1015) ABSOLUTE NEUTROPHILS (test code 3.73 K/UL = 1066) ABSOLUTE LYMPHOCYTES (test code 1.77 K/UL = 1067) ABSOLUTE MONOCYTES (test code = 0.32 K/UL 1068) ABSOLUTE EOSINOPHILS (test code 0.13 K/UL = 1040) ABSOLUTE BASOPHILS (test code = 0.03 K/UL 1069) ABS IMMATURE GRANULOCYTES (test 0.02 K/UL code = 1020) ABS NUCLEATED RBCS (test code = 0.00 K/UL 93909) CBC W/AUTO [id number] 00:00:00 Test Item Value Reference Range Interpretation Comments WBC (test code = 1001) 6.0 K/UL RBC (test code = 1002) 4.53 M/UL HEMOGLOBIN (test code = 1003) 13.0 G/DL HEMATOCRIT (test code = 1004) 39.8 % MCV (test code = 1005) 87.9 fL MCH (test code = 1006) 28.7 PG MCHC (test code = 1007) 32.7 G/DL RDW (test code = 1038) 14.4 % NEUTROPHILS (test code = 1008) 62.2 % LYMPHOCYTES (test code = 1010) 29.5 % MONOCYTES (test code = 1011) 5.3 % EOSINOPHILS (test code = 1012) 2.2 % BASOPHILS (test code = 1013) 0.5 % IMMATURE GRANULOCYTES (test 0.3 % code = 1036) NUCLEATED RBCS (test code = 0.0 /100WBC'S 1065) PLATELET COUNT (test code = 234 K/UL 1015) ABSOLUTE NEUTROPHILS (test code 3.73 K/UL = 1066) ABSOLUTE LYMPHOCYTES (test code 1.77 K/UL = 1067) ABSOLUTE MONOCYTES (test code = 0.32 K/UL 1068) ABSOLUTE EOSINOPHILS (test code 0.13 K/UL = 1040) ABSOLUTE BASOPHILS (test code = 0.03 K/UL 1069) ABS IMMATURE GRANULOCYTES (test 0.02 K/UL code = 1020) ABS NUCLEATED RBCS (test code = 0.00 K/UL 02242) CBC W/AUTO [id number] 00:00:00 Test Item Value Reference Range Interpretation Comments WBC (test code = 1001) 6.0 K/UL RBC (test code = 1002) 4.53 M/UL HEMOGLOBIN (test code = 1003) 13.0 G/DL HEMATOCRIT (test code = 1004) 39.8 % MCV (test code = 1005) 87.9 fL MCH (test code = 1006) 28.7 PG MCHC (test code = 1007) 32.7 G/DL RDW (test code = 1038) 14.4 % NEUTROPHILS (test code = 1008) 62.2 % LYMPHOCYTES (test code = 1010) 29.5 % MONOCYTES (test code = 1011) 5.3 % EOSINOPHILS (test code = 1012) 2.2 % BASOPHILS (test code = 1013) 0.5 % IMMATURE GRANULOCYTES (test 0.3 % code = 1036) NUCLEATED RBCS (test code = 0.0 /100WBC'S 1065) PLATELET COUNT (test code = 234 K/UL 1015) ABSOLUTE NEUTROPHILS (test code 3.73 K/UL = 1066) ABSOLUTE LYMPHOCYTES (test code 1.77 K/UL = 1067) ABSOLUTE MONOCYTES (test code = 0.32 K/UL 1068) ABSOLUTE EOSINOPHILS (test code 0.13 K/UL = 1040) ABSOLUTE BASOPHILS (test code = 0.03 K/UL 1069) ABS IMMATURE GRANULOCYTES (test 0.02 K/UL code = 1020) ABS NUCLEATED RBCS (test code = 0.00 K/UL 39007) LIPID [id number] 00:00:00 Test Item Value Reference Range Interpretation Comments CHOLESTEROL (test code = 2210) 164 MG/DL TRIGLYCERIDES (test code = 2232) 112 MG/DL HDL CHOLESTEROL (test code = 2220) 65 MG/DL CALC LDL CHOL (test code = 2237) 79 MG/DL RISK RATIO LDL/HDL (test code = 1.22 RATIO 2238) HEMOGLOBIN [id number] 00:00:00 Test Item Value Reference Range Interpretation Comments HEMOGLOBIN A1c (test code = 33025) 6.3 % HEMOGLOBIN [id number] 00:00:00 Test Item Value Reference Range Interpretation Comments HEMOGLOBIN A1c (test code = 69858) 6.3 % CBC W/AUTO [id number] 00:00:00 Test Item Value Reference Range Interpretation Comments WBC (test code = 1001) 6.0 K/UL RBC (test code = 1002) 4.53 M/UL HEMOGLOBIN (test code = 1003) 13.0 G/DL HEMATOCRIT (test code = 1004) 39.8 % MCV (test code = 1005) 87.9 fL MCH (test code = 1006) 28.7 PG MCHC (test code = 1007) 32.7 G/DL RDW (test code = 1038) 14.4 % NEUTROPHILS (test code = 1008) 62.2 % LYMPHOCYTES (test code = 1010) 29.5 % MONOCYTES (test code = 1011) 5.3 % EOSINOPHILS (test code = 1012) 2.2 % BASOPHILS (test code = 1013) 0.5 % IMMATURE GRANULOCYTES (test 0.3 % code = 1036) NUCLEATED RBCS (test code = 0.0 /100WBC'S 1065) PLATELET COUNT (test code = 234 K/UL 1015) ABSOLUTE NEUTROPHILS (test code 3.73 K/UL = 1066) ABSOLUTE LYMPHOCYTES (test code 1.77 K/UL = 1067) ABSOLUTE MONOCYTES (test code = 0.32 K/UL 1068) ABSOLUTE EOSINOPHILS (test code 0.13 K/UL = 1040) ABSOLUTE BASOPHILS (test code = 0.03 K/UL 1069) ABS IMMATURE GRANULOCYTES (test 0.02 K/UL code = 1020) ABS NUCLEATED RBCS (test code = 0.00 K/UL 20453) CBC W/AUTO [id number] 00:00:00 Test Item Value Reference Range Interpretation Comments WBC (test code = 1001) 6.0 K/UL RBC (test code = 1002) 4.53 M/UL HEMOGLOBIN (test code = 1003) 13.0 G/DL HEMATOCRIT (test code = 1004) 39.8 % MCV (test code = 1005) 87.9 fL MCH (test code = 1006) 28.7 PG MCHC (test code = 1007) 32.7 G/DL RDW (test code = 1038) 14.4 % NEUTROPHILS (test code = 1008) 62.2 % LYMPHOCYTES (test code = 1010) 29.5 % MONOCYTES (test code = 1011) 5.3 % EOSINOPHILS (test code = 1012) 2.2 % BASOPHILS (test code = 1013) 0.5 % IMMATURE GRANULOCYTES (test 0.3 % code = 1036) NUCLEATED RBCS (test code = 0.0 /100WBC'S 1065) PLATELET COUNT (test code = 234 K/UL 1015) ABSOLUTE NEUTROPHILS (test code 3.73 K/UL = 1066) ABSOLUTE LYMPHOCYTES (test code 1.77 K/UL = 1067) ABSOLUTE MONOCYTES (test code = 0.32 K/UL 1068) ABSOLUTE EOSINOPHILS (test code 0.13 K/UL = 1040) ABSOLUTE BASOPHILS (test code = 0.03 K/UL 1069) ABS IMMATURE GRANULOCYTES (test 0.02 K/UL code = 1020) ABS NUCLEATED RBCS (test code = 0.00 K/UL 30679) COMPREHENSIVE METABOLIC [id number] 00:00:00 Test Item Value Reference Range Interpretation Comments GLUCOSE (test code = 2217) 118 MG/DL BUN (test code = 2208) 14 MG/DL CREATININE (test code = 2214) 0.58 MG/DL eGFR (2020 CKD-EPI) (test 100 ML/MIN/1.73 code = 98974) CALC BUN/CREAT (test code = 24 RATIO 2235) SODIUM (test code = 2231) 144 MEQ/L POTASSIUM (test code = 2228) 4.7 MEQ/L CHLORIDE (test code = 2215) 103 MEQ/L CARBON DIOXIDE (test code = 26 MEQ/L 2205) CALCIUM (test code = 2209) 9.5 MG/DL PROTEIN, TOTAL (test code = 7.3 G/DL 2228) ALBUMIN (test code = 2201) 4.4 G/DL CALC GLOBULIN (test code = 2.9 G/DL 2239) CALC A/G RATIO (test code = 1.5 RATIO 2234) BILIRUBIN, TOTAL (test code = 0.3 MG/DL 2206) ALKALINE PHOSPHATASE (test 110 U/L code = 2204) AST (test code = 2218) 13 U/L ALT (test code = 2219) 9 U/L LIPID [id number] 00:00:00 Test Item Value Reference Range Interpretation Comments CHOLESTEROL (test code = 2210) 164 MG/DL TRIGLYCERIDES (test code = 2232) 112 MG/DL HDL CHOLESTEROL (test code = 2220) 65 MG/DL CALC LDL CHOL (test code = 2237) 79 MG/DL RISK RATIO LDL/HDL (test code = 1.22 RATIO 2238) HEMOGLOBIN [id number] 00:00:00 Test Item Value Reference Range Interpretation Comments HEMOGLOBIN A1c (test code = 51283) 6.3 % HEMOGLOBIN [id number] 00:00:00 Test Item Value Reference Range Interpretation Comments HEMOGLOBIN A1c (test code = 04699) 6.3 % CBC W/AUTO [id number] 00:00:00 Test Item Value Reference Range Interpretation Comments WBC (test code = 1001) 6.0 K/UL RBC (test code = 1002) 4.53 M/UL HEMOGLOBIN (test code = 1003) 13.0 G/DL HEMATOCRIT (test code = 1004) 39.8 % MCV (test code = 1005) 87.9 fL MCH (test code = 1006) 28.7 PG MCHC (test code = 1007) 32.7 G/DL RDW (test code = 1038) 14.4 % NEUTROPHILS (test code = 1008) 62.2 % LYMPHOCYTES (test code = 1010) 29.5 % MONOCYTES (test code = 1011) 5.3 % EOSINOPHILS (test code = 1012) 2.2 % BASOPHILS (test code = 1013) 0.5 % IMMATURE GRANULOCYTES (test 0.3 % code = 1036) NUCLEATED RBCS (test code = 0.0 /100WBC'S 1065) PLATELET COUNT (test code = 234 K/UL 1015) ABSOLUTE NEUTROPHILS (test code 3.73 K/UL = 1066) ABSOLUTE LYMPHOCYTES (test code 1.77 K/UL = 1067) ABSOLUTE MONOCYTES (test code = 0.32 K/UL 1068) ABSOLUTE EOSINOPHILS (test code 0.13 K/UL = 1040) ABSOLUTE BASOPHILS (test code = 0.03 K/UL 1069) ABS IMMATURE GRANULOCYTES (test 0.02 K/UL code = 1020) ABS NUCLEATED RBCS (test code = 0.00 K/UL 90194) CBC W/AUTO [id number] 00:00:00 Test Item Value Reference Range Interpretation Comments WBC (test code = 1001) 6.0 K/UL RBC (test code = 1002) 4.53 M/UL HEMOGLOBIN (test code = 1003) 13.0 G/DL HEMATOCRIT (test code = 1004) 39.8 % MCV (test code = 1005) 87.9 fL MCH (test code = 1006) 28.7 PG MCHC (test code = 1007) 32.7 G/DL RDW (test code = 1038) 14.4 % NEUTROPHILS (test code = 1008) 62.2 % LYMPHOCYTES (test code = 1010) 29.5 % MONOCYTES (test code = 1011) 5.3 % EOSINOPHILS (test code = 1012) 2.2 % BASOPHILS (test code = 1013) 0.5 % IMMATURE GRANULOCYTES (test 0.3 % code = 1036) NUCLEATED RBCS (test code = 0.0 /100WBC'S 1065) PLATELET COUNT (test code = 234 K/UL 1015) ABSOLUTE NEUTROPHILS (test code 3.73 K/UL = 1066) ABSOLUTE LYMPHOCYTES (test code 1.77 K/UL = 1067) ABSOLUTE MONOCYTES (test code = 0.32 K/UL 1068) ABSOLUTE EOSINOPHILS (test code 0.13 K/UL = 1040) ABSOLUTE BASOPHILS (test code = 0.03 K/UL 1069) ABS IMMATURE GRANULOCYTES (test 0.02 K/UL code = 1020) ABS NUCLEATED RBCS (test code = 0.00 K/UL 29038) COMPREHENSIVE METABOLIC [id number] 00:00:00 Test Item Value Reference Range Interpretation Comments GLUCOSE (test code = 2217) 118 MG/DL BUN (test code = 2208) 14 MG/DL CREATININE (test code = 2214) 0.58 MG/DL eGFR (2020 CKD-EPI) (test 100 ML/MIN/1.73 code = 12816) CALC BUN/CREAT (test code = 24 RATIO 2235) SODIUM (test code = 2231) 144 MEQ/L POTASSIUM (test code = 2228) 4.7 MEQ/L CHLORIDE (test code = 2215) 103 MEQ/L CARBON DIOXIDE (test code = 26 MEQ/L 2205) CALCIUM (test code = 2209) 9.5 MG/DL PROTEIN, TOTAL (test code = 7.3 G/DL 2228) ALBUMIN (test code = 220) 4.4 G/DL CALC GLOBULIN (test code = 2.9 G/DL 224) CALC A/G RATIO (test code = 1.5 RATIO 2234) BILIRUBIN, TOTAL (test code = 0.3 MG/DL 2206) ALKALINE PHOSPHATASE (test 110 U/L code = 2204) AST (test code = 2218) 13 U/L ALT (test code = 2219) 9 U/L COMPREHENSIVE METABOLIC [id number] 00:00:00 Test Item Value Reference Range Interpretation Comments GLUCOSE (test code = 2217) 118 MG/DL BUN (test code = 2208) 14 MG/DL CREATININE (test code = 2214) 0.58 MG/DL eGFR (2020 CKD-EPI) (test 100 ML/MIN/1.73 code = 96692) CALC BUN/CREAT (test code = 24 RATIO 2235) SODIUM (test code = 2231) 144 MEQ/L POTASSIUM (test code = 2228) 4.7 MEQ/L CHLORIDE (test code = 2215) 103 MEQ/L CARBON DIOXIDE (test code = 26 MEQ/L 2205) CALCIUM (test code = 2209) 9.5 MG/DL PROTEIN, TOTAL (test code = 7.3 G/DL 2228) ALBUMIN (test code = 2201) 4.4 G/DL CALC GLOBULIN (test code = 2.9 G/DL 2240) CALC A/G RATIO (test code = 1.5 RATIO 2234) BILIRUBIN, TOTAL (test code = 0.3 MG/DL 2206) ALKALINE PHOSPHATASE (test 110 U/L code = 2204) AST (test code = 2218) 13 U/L ALT (test code = 2219) 9 U/L LIPID [id number] 00:00:00 Test Item Value Reference Range Interpretation Comments CHOLESTEROL (test code = 2210) 164 MG/DL TRIGLYCERIDES (test code = 2232) 112 MG/DL HDL CHOLESTEROL (test code = 2220) 65 MG/DL CALC LDL CHOL (test code = 2237) 79 MG/DL RISK RATIO LDL/HDL (test code = 1.22 RATIO 2238) LIPID [id number] 00:00:00 Test Item Value Reference Range Interpretation Comments CHOLESTEROL (test code = 2210) 164 MG/DL TRIGLYCERIDES (test code = 2232) 112 MG/DL HDL CHOLESTEROL (test code = 2220) 65 MG/DL CALC LDL CHOL (test code = 2237) 79 MG/DL RISK RATIO LDL/HDL (test code = 1.22 RATIO 2238) HEMOGLOBIN [id number] 00:00:00 Test Item Value Reference Range Interpretation Comments HEMOGLOBIN A1c (test code = 35852) 6.3 % HEMOGLOBIN [id number] 00:00:00 Test Item Value Reference Range Interpretation Comments HEMOGLOBIN A1c (test code = 03793) 6.3 % HEMOGLOBIN [id number] 00:00:00 Test Item Value Reference Range Interpretation Comments HEMOGLOBIN A1c (test code = 39007) 6.3 % CBC W/AUTO [id number] 00:00:00 Test Item Value Reference Range Interpretation Comments WBC (test code = 1001) 6.0 K/UL RBC (test code = 1002) 4.53 M/UL HEMOGLOBIN (test code = 1003) 13.0 G/DL HEMATOCRIT (test code = 1004) 39.8 % MCV (test code = 1005) 87.9 fL MCH (test code = 1006) 28.7 PG MCHC (test code = 1007) 32.7 G/DL RDW (test code = 1038) 14.4 % NEUTROPHILS (test code = 1008) 62.2 % LYMPHOCYTES (test code = 1010) 29.5 % MONOCYTES (test code = 1011) 5.3 % EOSINOPHILS (test code = 1012) 2.2 % BASOPHILS (test code = 1013) 0.5 % IMMATURE GRANULOCYTES (test 0.3 % code = 1036) NUCLEATED RBCS (test code = 0.0 /100WBC'S 1065) PLATELET COUNT (test code = 234 K/UL 1015) ABSOLUTE NEUTROPHILS (test code 3.73 K/UL = 1066) ABSOLUTE LYMPHOCYTES (test code 1.77 K/UL = 1067) ABSOLUTE MONOCYTES (test code = 0.32 K/UL 1068) ABSOLUTE EOSINOPHILS (test code 0.13 K/UL = 1040) ABSOLUTE BASOPHILS (test code = 0.03 K/UL 1069) ABS IMMATURE GRANULOCYTES (test 0.02 K/UL code = 1020) ABS NUCLEATED RBCS (test code = 0.00 K/UL 17146) CBC W/AUTO [id number] 00:00:00 Test Item Value Reference Range Interpretation Comments WBC (test code = 1001) 6.0 K/UL RBC (test code = 1002) 4.53 M/UL HEMOGLOBIN (test code = 1003) 13.0 G/DL HEMATOCRIT (test code = 1004) 39.8 % MCV (test code = 1005) 87.9 fL MCH (test code = 1006) 28.7 PG MCHC (test code = 1007) 32.7 G/DL RDW (test code = 1038) 14.4 % NEUTROPHILS (test code = 1008) 62.2 % LYMPHOCYTES (test code = 1010) 29.5 % MONOCYTES (test code = 1011) 5.3 % EOSINOPHILS (test code = 1012) 2.2 % BASOPHILS (test code = 1013) 0.5 % IMMATURE GRANULOCYTES (test 0.3 % code = 1036) NUCLEATED RBCS (test code = 0.0 /100WBC'S 1065) PLATELET COUNT (test code = 234 K/UL 1015) ABSOLUTE NEUTROPHILS (test code 3.73 K/UL = 1066) ABSOLUTE LYMPHOCYTES (test code 1.77 K/UL = 1067) ABSOLUTE MONOCYTES (test code = 0.32 K/UL 1068) ABSOLUTE EOSINOPHILS (test code 0.13 K/UL = 1040) ABSOLUTE BASOPHILS (test code = 0.03 K/UL 1069) ABS IMMATURE GRANULOCYTES (test 0.02 K/UL code = 1020) ABS NUCLEATED RBCS (test code = 0.00 K/UL 16905) CBC W/AUTO [id number] 00:00:00 Test Item Value Reference Range Interpretation Comments WBC (test code = 1001) 6.0 K/UL RBC (test code = 1002) 4.53 M/UL HEMOGLOBIN (test code = 1003) 13.0 G/DL HEMATOCRIT (test code = 1004) 39.8 % MCV (test code = 1005) 87.9 fL MCH (test code = 1006) 28.7 PG MCHC (test code = 1007) 32.7 G/DL RDW (test code = 1038) 14.4 % NEUTROPHILS (test code = 1008) 62.2 % LYMPHOCYTES (test code = 1010) 29.5 % MONOCYTES (test code = 1011) 5.3 % EOSINOPHILS (test code = 1012) 2.2 % BASOPHILS (test code = 1013) 0.5 % IMMATURE GRANULOCYTES (test 0.3 % code = 1036) NUCLEATED RBCS (test code = 0.0 /100WBC'S 1065) PLATELET COUNT (test code = 234 K/UL 1015) ABSOLUTE NEUTROPHILS (test code 3.73 K/UL = 1066) ABSOLUTE LYMPHOCYTES (test code 1.77 K/UL = 1067) ABSOLUTE MONOCYTES (test code = 0.32 K/UL 1068) ABSOLUTE EOSINOPHILS (test code 0.13 K/UL = 1040) ABSOLUTE BASOPHILS (test code = 0.03 K/UL 1069) ABS IMMATURE GRANULOCYTES (test 0.02 K/UL code = 1020) ABS NUCLEATED RBCS (test code = 0.00 K/UL 86626) COMPREHENSIVE METABOLIC [id number] 00:00:00 Test Item Value Reference Range Interpretation Comments GLUCOSE (test code = 2217) 118 MG/DL BUN (test code = 2208) 14 MG/DL CREATININE (test code = 2214) 0.58 MG/DL eGFR (2020 CKD-EPI) (test 100 ML/MIN/1.73 code = 98531) CALC BUN/CREAT (test code = 24 RATIO 2235) SODIUM (test code = 2231) 144 MEQ/L POTASSIUM (test code = 2228) 4.7 MEQ/L CHLORIDE (test code = 2215) 103 MEQ/L CARBON DIOXIDE (test code = 26 MEQ/L 2205) CALCIUM (test code = 2209) 9.5 MG/DL PROTEIN, TOTAL (test code = 7.3 G/DL 2228) ALBUMIN (test code = 2201) 4.4 G/DL CALC GLOBULIN (test code = 2.9 G/DL 2240) CALC A/G RATIO (test code = 1.5 RATIO 2234) BILIRUBIN, TOTAL (test code = 0.3 MG/DL 2206) ALKALINE PHOSPHATASE (test 110 U/L code = 2204) AST (test code = 2218) 13 U/L ALT (test code = 2219) 9 U/L COMPREHENSIVE METABOLIC [id number] 00:00:00 Test Item Value Reference Range Interpretation Comments GLUCOSE (test code = 2217) 118 MG/DL BUN (test code = 2208) 14 MG/DL CREATININE (test code = 2214) 0.58 MG/DL eGFR (2020 CKD-EPI) (test 100 ML/MIN/1.73 code = 70168) CALC BUN/CREAT (test code = 24 RATIO 2235) SODIUM (test code = 2231) 144 MEQ/L POTASSIUM (test code = 2228) 4.7 MEQ/L CHLORIDE (test code = 2215) 103 MEQ/L CARBON DIOXIDE (test code = 26 MEQ/L 2205) CALCIUM (test code = 2209) 9.5 MG/DL PROTEIN, TOTAL (test code = 7.3 G/DL 2228) ALBUMIN (test code = 2201) 4.4 G/DL CALC GLOBULIN (test code = 2.9 G/DL 2240) CALC A/G RATIO (test code = 1.5 RATIO 2234) BILIRUBIN, TOTAL (test code = 0.3 MG/DL 2206) ALKALINE PHOSPHATASE (test 110 U/L code = 2204) AST (test code = 2218) 13 U/L ALT (test code = 2219) 9 U/L LIPID [id number] 00:00:00 Test Item Value Reference Range Interpretation Comments CHOLESTEROL (test code = 2210) 164 MG/DL TRIGLYCERIDES (test code = 2232) 112 MG/DL HDL CHOLESTEROL (test code = 2220) 65 MG/DL CALC LDL CHOL (test code = 2237) 79 MG/DL RISK RATIO LDL/HDL (test code = 1.22 RATIO 2238) LIPID [id number] 00:00:00 Test Item Value Reference Range Interpretation Comments CHOLESTEROL (test code = 2210) 164 MG/DL TRIGLYCERIDES (test code = 2232) 112 MG/DL HDL CHOLESTEROL (test code = 2220) 65 MG/DL CALC LDL CHOL (test code = 2237) 79 MG/DL RISK RATIO LDL/HDL (test code = 1.22 RATIO 2238) HEMOGLOBIN [id number] 00:00:00 Test Item Value Reference Range Interpretation Comments HEMOGLOBIN A1c (test code = 06857) 6.3 % HEMOGLOBIN [id number] 00:00:00 Test Item Value Reference Range Interpretation Comments HEMOGLOBIN A1c (test code = 33063) 6.3 % HEMOGLOBIN [id number] 00:00:00 Test Item Value Reference Range Interpretation Comments HEMOGLOBIN A1c (test code = 64716) 6.3 % CBC W/AUTO [id number] 00:00:00 Test Item Value Reference Range Interpretation Comments WBC (test code = 1001) 6.0 K/UL RBC (test code = 1002) 4.53 M/UL HEMOGLOBIN (test code = 1003) 13.0 G/DL HEMATOCRIT (test code = 1004) 39.8 % MCV (test code = 1005) 87.9 fL MCH (test code = 1006) 28.7 PG MCHC (test code = 1007) 32.7 G/DL RDW (test code = 1038) 14.4 % NEUTROPHILS (test code = 1008) 62.2 % LYMPHOCYTES (test code = 1010) 29.5 % MONOCYTES (test code = 1011) 5.3 % EOSINOPHILS (test code = 1012) 2.2 % BASOPHILS (test code = 1013) 0.5 % IMMATURE GRANULOCYTES (test 0.3 % code = 1036) NUCLEATED RBCS (test code = 0.0 /100WBC'S 1065) PLATELET COUNT (test code = 234 K/UL 1015) ABSOLUTE NEUTROPHILS (test code 3.73 K/UL = 1066) ABSOLUTE LYMPHOCYTES (test code 1.77 K/UL = 1067) ABSOLUTE MONOCYTES (test code = 0.32 K/UL 1068) ABSOLUTE EOSINOPHILS (test code 0.13 K/UL = 1040) ABSOLUTE BASOPHILS (test code = 0.03 K/UL 1069) ABS IMMATURE GRANULOCYTES (test 0.02 K/UL code = 1020) ABS NUCLEATED RBCS (test code = 0.00 K/UL 40934) CBC W/AUTO [id number] 00:00:00 Test Item Value Reference Range Interpretation Comments WBC (test code = 1001) 6.0 K/UL RBC (test code = 1002) 4.53 M/UL HEMOGLOBIN (test code = 1003) 13.0 G/DL HEMATOCRIT (test code = 1004) 39.8 % MCV (test code = 1005) 87.9 fL MCH (test code = 1006) 28.7 PG MCHC (test code = 1007) 32.7 G/DL RDW (test code = 1038) 14.4 % NEUTROPHILS (test code = 1008) 62.2 % LYMPHOCYTES (test code = 1010) 29.5 % MONOCYTES (test code = 1011) 5.3 % EOSINOPHILS (test code = 1012) 2.2 % BASOPHILS (test code = 1013) 0.5 % IMMATURE GRANULOCYTES (test 0.3 % code = 1036) NUCLEATED RBCS (test code = 0.0 /100WBC'S 1065) PLATELET COUNT (test code = 234 K/UL 1015) ABSOLUTE NEUTROPHILS (test code 3.73 K/UL = 1066) ABSOLUTE LYMPHOCYTES (test code 1.77 K/UL = 1067) ABSOLUTE MONOCYTES (test code = 0.32 K/UL 1068) ABSOLUTE EOSINOPHILS (test code 0.13 K/UL = 1040) ABSOLUTE BASOPHILS (test code = 0.03 K/UL 1069) ABS IMMATURE GRANULOCYTES (test 0.02 K/UL code = 1020) ABS NUCLEATED RBCS (test code = 0.00 K/UL 71080) CBC W/AUTO [id number] 00:00:00 Test Item Value Reference Range Interpretation Comments WBC (test code = 1001) 6.0 K/UL RBC (test code = 1002) 4.53 M/UL HEMOGLOBIN (test code = 1003) 13.0 G/DL HEMATOCRIT (test code = 1004) 39.8 % MCV (test code = 1005) 87.9 fL MCH (test code = 1006) 28.7 PG MCHC (test code = 1007) 32.7 G/DL RDW (test code = 1038) 14.4 % NEUTROPHILS (test code = 1008) 62.2 % LYMPHOCYTES (test code = 1010) 29.5 % MONOCYTES (test code = 1011) 5.3 % EOSINOPHILS (test code = 1012) 2.2 % BASOPHILS (test code = 1013) 0.5 % IMMATURE GRANULOCYTES (test 0.3 % code = 1036) NUCLEATED RBCS (test code = 0.0 /100WBC'S 1065) PLATELET COUNT (test code = 234 K/UL 1015) ABSOLUTE NEUTROPHILS (test code 3.73 K/UL = 1066) ABSOLUTE LYMPHOCYTES (test code 1.77 K/UL = 1067) ABSOLUTE MONOCYTES (test code = 0.32 K/UL 1068) ABSOLUTE EOSINOPHILS (test code 0.13 K/UL = 1040) ABSOLUTE BASOPHILS (test code = 0.03 K/UL 1069) ABS IMMATURE GRANULOCYTES (test 0.02 K/UL code = 1020) ABS NUCLEATED RBCS (test code = 0.00 K/UL 45750) CULTURE, [id number] 08:37:02SPECIMEN NUMBER: [id number] CULTURE, URINE SPECIMEN NUMBER: [id number] SPECIMEN COMMENT: URINE SOURCE:URINE REPORT STATUS: FINAL FINAL REPORT: 12/13/2021 >100,000 CFU/ML UROGENITAL JES[place] PRESENT NO CO MMON PATHOGENS UNLESS OTHERWISE INDICATED, ALL TESTING PERFORMED [facility] [address] [place] [address] PRODUCT MANAGER: WALDO COSTELLO M.D. CLIA NUMBER [id number] CAP ACCREDITATION NO. [id number] CULTURE, [id number] 00:00:00 Test Item Value Reference Range Interpretation Comments CULTURE, URINE (test SPECIMEN NUMBER: code = 02474) [id number] CULTURE, [id number] 00:00:00 Test Item Value Reference Range Interpretation Comments CULTURE, URINE (test SPECIMEN NUMBER: code = 12303) [id number] CULTURE, [id number] 00:00:00 Test Item Value Reference Range Interpretation Comments CULTURE, URINE (test SPECIMEN NUMBER: code = 15755) [id number] CULTURE, [id number] 00:00:00 Test Item Value Reference Range Interpretation Comments CULTURE, URINE (test SPECIMEN NUMBER: code = 53006) [id number] CULTURE, [id number] 00:00:00 Test Item Value Reference Range Interpretation Comments CULTURE, URINE (test SPECIMEN NUMBER: code = 16603) [id number] CULTURE, [id number] 00:00:00 Test Item Value Reference Range Interpretation Comments CULTURE, URINE (test SPECIMEN NUMBER: code = 75002) [id number] CULTURE, [id number] 00:00:00 Test Item Value Reference Range Interpretation Comments CULTURE, URINE (test SPECIMEN NUMBER: code = 61001) [id number] CULTURE, [id number] 00:00:00 Test Item Value Reference Range Interpretation Comments CULTURE, URINE (test SPECIMEN NUMBER: code = 15752) [id number] 00:00:00 Test Item Value Reference Range Interpretation Comments PTT (test code = 1403) 31.0 SECONDS BASIC METABOLIC [id number] 00:00:00 Test Item Value Reference Range Interpretation Comments GLUCOSE (test code = 2217) 103 MG/DL BUN (test code = 2208) 18 MG/DL CREATININE (test code = 2214) 0.56 MG/DL eGFR AMER. (test code 114 ML/MIN/1.73 = 87882) eGFR NON- AMER. (test 99 ML/MIN/1.73 code = 60237) SODIUM (test code = 2231) 141 MEQ/L POTASSIUM (test code = 2228) 4.1 MEQ/L CHLORIDE (test code = 2215) 103 MEQ/L CARBON DIOXIDE (test code = 26 MEQ/L 2206) CALCIUM (test code = 2209) 9.6 MG/DL [id number] 00:00:00 Test Item Value Reference Range Interpretation Comments PTT (test code = 1403) 31.0 SECONDS BASIC METABOLIC [id number] 00:00:00 Test Item Value Reference Range Interpretation Comments GLUCOSE (test code = 2217) 103 MG/DL BUN (test code = 2208) 18 MG/DL CREATININE (test code = 2214) 0.56 MG/DL eGFR AMER. (test code 114 ML/MIN/1.73 = 79777) eGFR NON- AMER. (test 99 ML/MIN/1.73 code = 09791) SODIUM (test code = 2231) 141 MEQ/L POTASSIUM (test code = 2228) 4.1 MEQ/L CHLORIDE (test code = 2215) 103 MEQ/L CARBON DIOXIDE (test code = 26 MEQ/L 2206) CALCIUM (test code = 2209) 9.6 MG/DL [id number] 00:00:00 Test Item Value Reference Range Interpretation Comments PTT (test code = 1403) 31.0 SECONDS [id number] 00:00:00 Test Item Value Reference Range Interpretation Comments PTT (test code = 1403) 31.0 SECONDS [id number] 00:00:00 Test Item Value Reference Range Interpretation Comments PTT (test code = 1403) 31.0 SECONDS BASIC METABOLIC [id number] 00:00:00 Test Item Value Reference Range Interpretation Comments GLUCOSE (test code = 2217) 103 MG/DL BUN (test code = 2208) 18 MG/DL CREATININE (test code = 2214) 0.56 MG/DL eGFR AMER. (test code 114 ML/MIN/1.73 = 09356) eGFR NON- AMER. (test 99 ML/MIN/1.73 code = 61254) SODIUM (test code = 2231) 141 MEQ/L POTASSIUM (test code = 2228) 4.1 MEQ/L CHLORIDE (test code = 2215) 103 MEQ/L CARBON DIOXIDE (test code = 26 MEQ/L 2206) CALCIUM (test code = 2209) 9.6 MG/DL CBC W/AUTO [id number] 00:00:00 Test Item Value Reference Range Interpretation Comments WBC (test code = 1001) 7.0 K/UL RBC (test code = 1002) 4.43 M/UL HEMOGLOBIN (test code = 1003) 13.1 G/DL HEMATOCRIT (test code = 1004) 38.4 % MCV (test code = 1005) 86.7 fL MCH (test code = 1006) 29.6 PG MCHC (test code = 1007) 34.1 G/DL RDW (test code = 1038) 14.7 % NEUTROPHILS (test code = 1008) 55.9 % LYMPHOCYTES (test code = 1010) 35.4 % MONOCYTES (test code = 1011) 6.0 % EOSINOPHILS (test code = 1012) 2.0 % BASOPHILS (test code = 1013) 0.6 % IMMATURE GRANULOCYTES (test 0.1 % code = 1036) NUCLEATED RBCS (test code = 0.0 /100WBC'S 1065) PLATELET COUNT (test code = 253 K/UL 1015) ABSOLUTE NEUTROPHILS (test code 3.93 K/UL = 1066) ABSOLUTE LYMPHOCYTES (test code 2.49 K/UL = 1067) ABSOLUTE MONOCYTES (test code = 0.42 K/UL 1068) ABSOLUTE EOSINOPHILS (test code 0.14 K/UL = 1040) ABSOLUTE BASOPHILS (test code = 0.04 K/UL 1069) ABS IMMATURE GRANULOCYTES (test 0.01 K/UL code = 1020) ABS NUCLEATED RBCS (test code = 0.00 K/UL 67116) CBC W/AUTO [id number] 00:00:00 Test Item Value Reference Range Interpretation Comments WBC (test code = 1001) 7.0 K/UL RBC (test code = 1002) 4.43 M/UL HEMOGLOBIN (test code = 1003) 13.1 G/DL HEMATOCRIT (test code = 1004) 38.4 % MCV (test code = 1005) 86.7 fL MCH (test code = 1006) 29.6 PG MCHC (test code = 1007) 34.1 G/DL RDW (test code = 1038) 14.7 % NEUTROPHILS (test code = 1008) 55.9 % LYMPHOCYTES (test code = 1010) 35.4 % MONOCYTES (test code = 1011) 6.0 % EOSINOPHILS (test code = 1012) 2.0 % BASOPHILS (test code = 1013) 0.6 % IMMATURE GRANULOCYTES (test 0.1 % code = 1036) NUCLEATED RBCS (test code = 0.0 /100WBC'S 1065) PLATELET COUNT (test code = 253 K/UL 1015) ABSOLUTE NEUTROPHILS (test code 3.93 K/UL = 1066) ABSOLUTE LYMPHOCYTES (test code 2.49 K/UL = 1067) ABSOLUTE MONOCYTES (test code = 0.42 K/UL 1068) ABSOLUTE EOSINOPHILS (test code 0.14 K/UL = 1040) ABSOLUTE BASOPHILS (test code = 0.04 K/UL 1069) ABS IMMATURE GRANULOCYTES (test 0.01 K/UL code = 1020) ABS NUCLEATED RBCS (test code = 0.00 K/UL 82702) PROTHROMBIN TIME (PT)2021-06-15 00:00:00 Test Item Value Reference Range Interpretation Comments PROTHROMBIN TIME (PT) (test code 12.5 SECONDS = 1402) INR (test code = 48276) 0.9 CBC W/AUTO [id number] 00:00:00 Test Item Value Reference Range Interpretation Comments WBC (test code = 1001) 7.0 K/UL RBC (test code = 1002) 4.43 M/UL HEMOGLOBIN (test code = 1003) 13.1 G/DL HEMATOCRIT (test code = 1004) 38.4 % MCV (test code = 1005) 86.7 fL MCH (test code = 1006) 29.6 PG MCHC (test code = 1007) 34.1 G/DL RDW (test code = 1038) 14.7 % NEUTROPHILS (test code = 1008) 55.9 % LYMPHOCYTES (test code = 1010) 35.4 % MONOCYTES (test code = 1011) 6.0 % EOSINOPHILS (test code = 1012) 2.0 % BASOPHILS (test code = 1013) 0.6 % IMMATURE GRANULOCYTES (test 0.1 % code = 1036) NUCLEATED RBCS (test code = 0.0 /100WBC'S 1065) PLATELET COUNT (test code = 253 K/UL 1015) ABSOLUTE NEUTROPHILS (test code 3.93 K/UL = 1066) ABSOLUTE LYMPHOCYTES (test code 2.49 K/UL = 1067) ABSOLUTE MONOCYTES (test code = 0.42 K/UL 1068) ABSOLUTE EOSINOPHILS (test code 0.14 K/UL = 1040) ABSOLUTE BASOPHILS (test code = 0.04 K/UL 1069) ABS IMMATURE GRANULOCYTES (test 0.01 K/UL code = 1020) ABS NUCLEATED RBCS (test code = 0.00 K/UL 35150) PROTHROMBIN TIME (PT)2021-06-15 00:00:00 Test Item Value Reference Range Interpretation Comments PROTHROMBIN TIME (PT) (test code 12.5 SECONDS = 1402) INR (test code = 56373) 0.9 HEMOGLOBIN [id number] 00:00:00 Test Item Value Reference Range Interpretation Comments HEMOGLOBIN A1c (test code = 00429) 6.4 % HEMOGLOBIN [id number] 00:00:00 Test Item Value Reference Range Interpretation Comments HEMOGLOBIN A1c (test code = 88850) 6.4 % HEMOGLOBIN [id number] 00:00:00 Test Item Value Reference Range Interpretation Comments HEMOGLOBIN A1c (test code = 16806) 6.4 % PROTHROMBIN TIME (PT)2021-06-15 00:00:00 Test Item Value Reference Range Interpretation Comments PROTHROMBIN TIME (PT) (test code 12.5 SECONDS = 1402) INR (test code = 35022) 0.9 CBC W/AUTO [id number] 00:00:00 Test Item Value Reference Range Interpretation Comments WBC (test code = 1001) 7.0 K/UL RBC (test code = 1002) 4.43 M/UL HEMOGLOBIN (test code = 1003) 13.1 G/DL HEMATOCRIT (test code = 1004) 38.4 % MCV (test code = 1005) 86.7 fL MCH (test code = 1006) 29.6 PG MCHC (test code = 1007) 34.1 G/DL RDW (test code = 1038) 14.7 % NEUTROPHILS (test code = 1008) 55.9 % LYMPHOCYTES (test code = 1010) 35.4 % MONOCYTES (test code = 1011) 6.0 % EOSINOPHILS (test code = 1012) 2.0 % BASOPHILS (test code = 1013) 0.6 % IMMATURE GRANULOCYTES (test 0.1 % code = 1036) NUCLEATED RBCS (test code = 0.0 /100WBC'S 1065) PLATELET COUNT (test code = 253 K/UL 1015) ABSOLUTE NEUTROPHILS (test code 3.93 K/UL = 1066) ABSOLUTE LYMPHOCYTES (test code 2.49 K/UL = 1067) ABSOLUTE MONOCYTES (test code = 0.42 K/UL 1068) ABSOLUTE EOSINOPHILS (test code 0.14 K/UL = 1040) ABSOLUTE BASOPHILS (test code = 0.04 K/UL 1069) ABS IMMATURE GRANULOCYTES (test 0.01 K/UL code = 1020) ABS NUCLEATED RBCS (test code = 0.00 K/UL 57645) CBC W/AUTO [id number] 00:00:00 Test Item Value Reference Range Interpretation Comments WBC (test code = 1001) 7.0 K/UL RBC (test code = 1002) 4.43 M/UL HEMOGLOBIN (test code = 1003) 13.1 G/DL HEMATOCRIT (test code = 1004) 38.4 % MCV (test code = 1005) 86.7 fL MCH (test code = 1006) 29.6 PG MCHC (test code = 1007) 34.1 G/DL RDW (test code = 1038) 14.7 % NEUTROPHILS (test code = 1008) 55.9 % LYMPHOCYTES (test code = 1010) 35.4 % MONOCYTES (test code = 1011) 6.0 % EOSINOPHILS (test code = 1012) 2.0 % BASOPHILS (test code = 1013) 0.6 % IMMATURE GRANULOCYTES (test 0.1 % code = 1036) NUCLEATED RBCS (test code = 0.0 /100WBC'S 1065) PLATELET COUNT (test code = 253 K/UL 1015) ABSOLUTE NEUTROPHILS (test code 3.93 K/UL = 1066) ABSOLUTE LYMPHOCYTES (test code 2.49 K/UL = 1067) ABSOLUTE MONOCYTES (test code = 0.42 K/UL 1068) ABSOLUTE EOSINOPHILS (test code 0.14 K/UL = 1040) ABSOLUTE BASOPHILS (test code = 0.04 K/UL 1069) ABS IMMATURE GRANULOCYTES (test 0.01 K/UL code = 1020) ABS NUCLEATED RBCS (test code = 0.00 K/UL 66028) HEMOGLOBIN [id number] 00:00:00 Test Item Value Reference Range Interpretation Comments HEMOGLOBIN A1c (test code = 56627) 6.4 % HEMOGLOBIN [id number] 00:00:00 Test Item Value Reference Range Interpretation Comments HEMOGLOBIN A1c (test code = 91992) 6.4 % [id number] 00:00:00 Test Item Value Reference Range Interpretation Comments PTT (test code = 1403) 31.0 SECONDS [id number] 00:00:00 Test Item Value Reference Range Interpretation Comments PTT (test code = 1403) 31.0 SECONDS BASIC METABOLIC [id number] 00:00:00 Test Item Value Reference Range Interpretation Comments GLUCOSE (test code = 2217) 103 MG/DL BUN (test code = 2208) 18 MG/DL CREATININE (test code = 2214) 0.56 MG/DL eGFR AMER. (test code 114 ML/MIN/1.73 = 09215) eGFR NON- AMER. (test 99 ML/MIN/1.73 code = 04976) SODIUM (test code = 2231) 141 MEQ/L POTASSIUM (test code = 2228) 4.1 MEQ/L CHLORIDE (test code = 2215) 103 MEQ/L CARBON DIOXIDE (test code = 26 MEQ/L 2206) CALCIUM (test code = 2209) 9.6 MG/DL [id number] 00:00:00 Test Item Value Reference Range Interpretation Comments PTT (test code = 1403) 31.0 SECONDS PROTHROMBIN TIME (PT)2021-06-15 00:00:00 Test Item Value Reference Range Interpretation Comments PROTHROMBIN TIME (PT) (test code 12.5 SECONDS = 1402) INR (test code = 56873) 0.9 CBC W/AUTO [id number] 00:00:00 Test Item Value Reference Range Interpretation Comments WBC (test code = 1001) 7.0 K/UL RBC (test code = 1002) 4.43 M/UL HEMOGLOBIN (test code = 1003) 13.1 G/DL HEMATOCRIT (test code = 1004) 38.4 % MCV (test code = 1005) 86.7 fL MCH (test code = 1006) 29.6 PG MCHC (test code = 1007) 34.1 G/DL RDW (test code = 1038) 14.7 % NEUTROPHILS (test code = 1008) 55.9 % LYMPHOCYTES (test code = 1010) 35.4 % MONOCYTES (test code = 1011) 6.0 % EOSINOPHILS (test code = 1012) 2.0 % BASOPHILS (test code = 1013) 0.6 % IMMATURE GRANULOCYTES (test 0.1 % code = 1036) NUCLEATED RBCS (test code = 0.0 /100WBC'S 1065) PLATELET COUNT (test code = 253 K/UL 1015) ABSOLUTE NEUTROPHILS (test code 3.93 K/UL = 1066) ABSOLUTE LYMPHOCYTES (test code 2.49 K/UL = 1067) ABSOLUTE MONOCYTES (test code = 0.42 K/UL 1068) ABSOLUTE EOSINOPHILS (test code 0.14 K/UL = 1040) ABSOLUTE BASOPHILS (test code = 0.04 K/UL 1069) ABS IMMATURE GRANULOCYTES (test 0.01 K/UL code = 1020) ABS NUCLEATED RBCS (test code = 0.00 K/UL 16711) CBC W/AUTO [id number] 00:00:00 Test Item Value Reference Range Interpretation Comments WBC (test code = 1001) 7.0 K/UL RBC (test code = 1002) 4.43 M/UL HEMOGLOBIN (test code = 1003) 13.1 G/DL HEMATOCRIT (test code = 1004) 38.4 % MCV (test code = 1005) 86.7 fL MCH (test code = 1006) 29.6 PG MCHC (test code = 1007) 34.1 G/DL RDW (test code = 1038) 14.7 % NEUTROPHILS (test code = 1008) 55.9 % LYMPHOCYTES (test code = 1010) 35.4 % MONOCYTES (test code = 1011) 6.0 % EOSINOPHILS (test code = 1012) 2.0 % BASOPHILS (test code = 1013) 0.6 % IMMATURE GRANULOCYTES (test 0.1 % code = 1036) NUCLEATED RBCS (test code = 0.0 /100WBC'S 1065) PLATELET COUNT (test code = 253 K/UL 1015) ABSOLUTE NEUTROPHILS (test code 3.93 K/UL = 1066) ABSOLUTE LYMPHOCYTES (test code 2.49 K/UL = 1067) ABSOLUTE MONOCYTES (test code = 0.42 K/UL 1068) ABSOLUTE EOSINOPHILS (test code 0.14 K/UL = 1040) ABSOLUTE BASOPHILS (test code = 0.04 K/UL 1069) ABS IMMATURE GRANULOCYTES (test 0.01 K/UL code = 1020) ABS NUCLEATED RBCS (test code = 0.00 K/UL 93250) HEMOGLOBIN [id number] 00:00:00 Test Item Value Reference Range Interpretation Comments HEMOGLOBIN A1c (test code = 95120) 6.4 % HEMOGLOBIN [id number] 00:00:00 Test Item Value Reference Range Interpretation Comments HEMOGLOBIN A1c (test code = 86992) 6.4 % [id number] 00:00:00 Test Item Value Reference Range Interpretation Comments PTT (test code = 1403) 31.0 SECONDS [id number] 00:00:00 Test Item Value Reference Range Interpretation Comments PTT (test code = 1403) 31.0 SECONDS [id number] 00:00:00 Test Item Value Reference Range Interpretation Comments PTT (test code = 1403) 31.0 SECONDS [id number] 00:00:00 Test Item Value Reference Range Interpretation Comments PTT (test code = 1403) 31.0 SECONDS BASIC METABOLIC [id number] 00:00:00 Test Item Value Reference Range Interpretation Comments GLUCOSE (test code = 2217) 103 MG/DL BUN (test code = 2208) 18 MG/DL CREATININE (test code = 2214) 0.56 MG/DL eGFR AMER. (test code 114 ML/MIN/1.73 = 21065) eGFR NON- AMER. (test 99 ML/MIN/1.73 code = 93179) SODIUM (test code = 2231) 141 MEQ/L POTASSIUM (test code = 2228) 4.1 MEQ/L CHLORIDE (test code = 2215) 103 MEQ/L CARBON DIOXIDE (test code = 26 MEQ/L 2206) CALCIUM (test code = 2209) 9.6 MG/DL BASIC METABOLIC [id number] 00:00:00 Test Item Value Reference Range Interpretation Comments GLUCOSE (test code = 2217) 103 MG/DL BUN (test code = 2208) 18 MG/DL CREATININE (test code = 2214) 0.56 MG/DL eGFR AMER. (test code 114 ML/MIN/1.73 = 18606) eGFR NON- AMER. (test 99 ML/MIN/1.73 code = 84688) SODIUM (test code = 2231) 141 MEQ/L POTASSIUM (test code = 2228) 4.1 MEQ/L CHLORIDE (test code = 2215) 103 MEQ/L CARBON DIOXIDE (test code = 26 MEQ/L 2206) CALCIUM (test code = 2209) 9.6 MG/DL CBC W/AUTO [id number] 00:00:00 Test Item Value Reference Range Interpretation Comments WBC (test code = 1001) 7.0 K/UL RBC (test code = 1002) 4.43 M/UL HEMOGLOBIN (test code = 1003) 13.1 G/DL HEMATOCRIT (test code = 1004) 38.4 % MCV (test code = 1005) 86.7 fL MCH (test code = 1006) 29.6 PG MCHC (test code = 1007) 34.1 G/DL RDW (test code = 1038) 14.7 % NEUTROPHILS (test code = 1008) 55.9 % LYMPHOCYTES (test code = 1010) 35.4 % MONOCYTES (test code = 1011) 6.0 % EOSINOPHILS (test code = 1012) 2.0 % BASOPHILS (test code = 1013) 0.6 % IMMATURE GRANULOCYTES (test 0.1 % code = 1036) NUCLEATED RBCS (test code = 0.0 /100WBC'S 1065) PLATELET COUNT (test code = 253 K/UL 1015) ABSOLUTE NEUTROPHILS (test code 3.93 K/UL = 1066) ABSOLUTE LYMPHOCYTES (test code 2.49 K/UL = 1067) ABSOLUTE MONOCYTES (test code = 0.42 K/UL 1068) ABSOLUTE EOSINOPHILS (test code 0.14 K/UL = 1040) ABSOLUTE BASOPHILS (test code = 0.04 K/UL 1069) ABS IMMATURE GRANULOCYTES (test 0.01 K/UL code = 1020) ABS NUCLEATED RBCS (test code = 0.00 K/UL 31599) PROTHROMBIN TIME (PT)2021-06-15 00:00:00 Test Item Value Reference Range Interpretation Comments PROTHROMBIN TIME (PT) (test code 12.5 SECONDS = 1402) INR (test code = 51232) 0.9 CBC W/AUTO [id number] 00:00:00 Test Item Value Reference Range Interpretation Comments WBC (test code = 1001) 7.0 K/UL RBC (test code = 1002) 4.43 M/UL HEMOGLOBIN (test code = 1003) 13.1 G/DL HEMATOCRIT (test code = 1004) 38.4 % MCV (test code = 1005) 86.7 fL MCH (test code = 1006) 29.6 PG MCHC (test code = 1007) 34.1 G/DL RDW (test code = 1038) 14.7 % NEUTROPHILS (test code = 1008) 55.9 % LYMPHOCYTES (test code = 1010) 35.4 % MONOCYTES (test code = 1011) 6.0 % EOSINOPHILS (test code = 1012) 2.0 % BASOPHILS (test code = 1013) 0.6 % IMMATURE GRANULOCYTES (test 0.1 % code = 1036) NUCLEATED RBCS (test code = 0.0 /100WBC'S 1065) PLATELET COUNT (test code = 253 K/UL 1015) ABSOLUTE NEUTROPHILS (test code 3.93 K/UL = 1066) ABSOLUTE LYMPHOCYTES (test code 2.49 K/UL = 1067) ABSOLUTE MONOCYTES (test code = 0.42 K/UL 1068) ABSOLUTE EOSINOPHILS (test code 0.14 K/UL = 1040) ABSOLUTE BASOPHILS (test code = 0.04 K/UL 1069) ABS IMMATURE GRANULOCYTES (test 0.01 K/UL code = 1020) ABS NUCLEATED RBCS (test code = 0.00 K/UL 19663) PROTHROMBIN TIME (PT)2021-06-15 00:00:00 Test Item Value Reference Range Interpretation Comments PROTHROMBIN TIME (PT) (test code 12.5 SECONDS = 1402) INR (test code = 01224) 0.9 CBC W/AUTO [id number] 00:00:00 Test Item Value Reference Range Interpretation Comments WBC (test code = 1001) 7.0 K/UL RBC (test code = 1002) 4.43 M/UL HEMOGLOBIN (test code = 1003) 13.1 G/DL HEMATOCRIT (test code = 1004) 38.4 % MCV (test code = 1005) 86.7 fL MCH (test code = 1006) 29.6 PG MCHC (test code = 1007) 34.1 G/DL RDW (test code = 1038) 14.7 % NEUTROPHILS (test code = 1008) 55.9 % LYMPHOCYTES (test code = 1010) 35.4 % MONOCYTES (test code = 1011) 6.0 % EOSINOPHILS (test code = 1012) 2.0 % BASOPHILS (test code = 1013) 0.6 % IMMATURE GRANULOCYTES (test 0.1 % code = 1036) NUCLEATED RBCS (test code = 0.0 /100WBC'S 1065) PLATELET COUNT (test code = 253 K/UL 1015) ABSOLUTE NEUTROPHILS (test code 3.93 K/UL = 1066) ABSOLUTE LYMPHOCYTES (test code 2.49 K/UL = 1067) ABSOLUTE MONOCYTES (test code = 0.42 K/UL 1068) ABSOLUTE EOSINOPHILS (test code 0.14 K/UL = 1040) ABSOLUTE BASOPHILS (test code = 0.04 K/UL 1069) ABS IMMATURE GRANULOCYTES (test 0.01 K/UL code = 1020) ABS NUCLEATED RBCS (test code = 0.00 K/UL 98077) HEMOGLOBIN [id number] 00:00:00 Test Item Value Reference Range Interpretation Comments HEMOGLOBIN A1c (test code = 51197) 6.4 % HEMOGLOBIN [id number] 00:00:00 Test Item Value Reference Range Interpretation Comments HEMOGLOBIN A1c (test code = 10655) 6.4 % HEMOGLOBIN [id number] 00:00:00 Test Item Value Reference Range Interpretation Comments HEMOGLOBIN A1c (test code = 63845) 6.4 % [id number] 00:00:00 Test Item Value Reference Range Interpretation Comments PTT (test code = 1403) 31.0 SECONDS [id number] 00:00:00 Test Item Value Reference Range Interpretation Comments PTT (test code = 1403) 31.0 SECONDS [id number] 00:00:00 Test Item Value Reference Range Interpretation Comments PTT (test code = 1403) 31.0 SECONDS BASIC METABOLIC [id number] 00:00:00 Test Item Value Reference Range Interpretation Comments GLUCOSE (test code = 2217) 103 MG/DL BUN (test code = 2208) 18 MG/DL CREATININE (test code = 2214) 0.56 MG/DL eGFR AMER. (test code 114 ML/MIN/1.73 = 37210) eGFR NON- AMER. (test 99 ML/MIN/1.73 code = 26577) SODIUM (test code = 2231) 141 MEQ/L POTASSIUM (test code = 2228) 4.1 MEQ/L CHLORIDE (test code = 2215) 103 MEQ/L CARBON DIOXIDE (test code = 26 MEQ/L 2206) CALCIUM (test code = 2209) 9.6 MG/DL BASIC METABOLIC [id number] 00:00:00 Test Item Value Reference Range Interpretation Comments GLUCOSE (test code = 2217) 103 MG/DL BUN (test code = 2208) 18 MG/DL CREATININE (test code = 2214) 0.56 MG/DL eGFR AMER. (test code 114 ML/MIN/1.73 = 40980) eGFR NON- AMER. (test 99 ML/MIN/1.73 code = 63340) SODIUM (test code = 2231) 141 MEQ/L POTASSIUM (test code = 2228) 4.1 MEQ/L CHLORIDE (test code = 2215) 103 MEQ/L CARBON DIOXIDE (test code = 26 MEQ/L 2206) CALCIUM (test code = 2209) 9.6 MG/DL [id number] 00:00:00 Test Item Value Reference Range Interpretation Comments PTT (test code = 1403) 31.0 SECONDS PROTHROMBIN TIME (PT)2021-06-15 00:00:00 Test Item Value Reference Range Interpretation Comments PROTHROMBIN TIME (PT) (test code 12.5 SECONDS = 1402) INR (test code = 83906) 0.9 CBC W/AUTO [id number] 00:00:00 Test Item Value Reference Range Interpretation Comments WBC (test code = 1001) 7.0 K/UL RBC (test code = 1002) 4.43 M/UL HEMOGLOBIN (test code = 1003) 13.1 G/DL HEMATOCRIT (test code = 1004) 38.4 % MCV (test code = 1005) 86.7 fL MCH (test code = 1006) 29.6 PG MCHC (test code = 1007) 34.1 G/DL RDW (test code = 1038) 14.7 % NEUTROPHILS (test code = 1008) 55.9 % LYMPHOCYTES (test code = 1010) 35.4 % MONOCYTES (test code = 1011) 6.0 % EOSINOPHILS (test code = 1012) 2.0 % BASOPHILS (test code = 1013) 0.6 % IMMATURE GRANULOCYTES (test 0.1 % code = 1036) NUCLEATED RBCS (test code = 0.0 /100WBC'S 1065) PLATELET COUNT (test code = 253 K/UL 1015) ABSOLUTE NEUTROPHILS (test code 3.93 K/UL = 1066) ABSOLUTE LYMPHOCYTES (test code 2.49 K/UL = 1067) ABSOLUTE MONOCYTES (test code = 0.42 K/UL 1068) ABSOLUTE EOSINOPHILS (test code 0.14 K/UL = 1040) ABSOLUTE BASOPHILS (test code = 0.04 K/UL 1069) ABS IMMATURE GRANULOCYTES (test 0.01 K/UL code = 1020) ABS NUCLEATED RBCS (test code = 0.00 K/UL 81018) PROTHROMBIN TIME (PT)2021-06-15 00:00:00 Test Item Value Reference Range Interpretation Comments PROTHROMBIN TIME (PT) (test code 12.5 SECONDS = 1402) INR (test code = 48121) 0.9 CBC W/AUTO [id number] 00:00:00 Test Item Value Reference Range Interpretation Comments WBC (test code = 1001) 7.0 K/UL RBC (test code = 1002) 4.43 M/UL HEMOGLOBIN (test code = 1003) 13.1 G/DL HEMATOCRIT (test code = 1004) 38.4 % MCV (test code = 1005) 86.7 fL MCH (test code = 1006) 29.6 PG MCHC (test code = 1007) 34.1 G/DL RDW (test code = 1038) 14.7 % NEUTROPHILS (test code = 1008) 55.9 % LYMPHOCYTES (test code = 1010) 35.4 % MONOCYTES (test code = 1011) 6.0 % EOSINOPHILS (test code = 1012) 2.0 % BASOPHILS (test code = 1013) 0.6 % IMMATURE GRANULOCYTES (test 0.1 % code = 1036) NUCLEATED RBCS (test code = 0.0 /100WBC'S 1065) PLATELET COUNT (test code = 253 K/UL 1015) ABSOLUTE NEUTROPHILS (test code 3.93 K/UL = 1066) ABSOLUTE LYMPHOCYTES (test code 2.49 K/UL = 1067) ABSOLUTE MONOCYTES (test code = 0.42 K/UL 1068) ABSOLUTE EOSINOPHILS (test code 0.14 K/UL = 1040) ABSOLUTE BASOPHILS (test code = 0.04 K/UL 1069) ABS IMMATURE GRANULOCYTES (test 0.01 K/UL code = 1020) ABS NUCLEATED RBCS (test code = 0.00 K/UL 69795) CBC W/AUTO [id number] 00:00:00 Test Item Value Reference Range Interpretation Comments WBC (test code = 1001) 7.0 K/UL RBC (test code = 1002) 4.43 M/UL HEMOGLOBIN (test code = 1003) 13.1 G/DL HEMATOCRIT (test code = 1004) 38.4 % MCV (test code = 1005) 86.7 fL MCH (test code = 1006) 29.6 PG MCHC (test code = 1007) 34.1 G/DL RDW (test code = 1038) 14.7 % NEUTROPHILS (test code = 1008) 55.9 % LYMPHOCYTES (test code = 1010) 35.4 % MONOCYTES (test code = 1011) 6.0 % EOSINOPHILS (test code = 1012) 2.0 % BASOPHILS (test code = 1013) 0.6 % IMMATURE GRANULOCYTES (test 0.1 % code = 1036) NUCLEATED RBCS (test code = 0.0 /100WBC'S 1065) PLATELET COUNT (test code = 253 K/UL 1015) ABSOLUTE NEUTROPHILS (test code 3.93 K/UL = 1066) ABSOLUTE LYMPHOCYTES (test code 2.49 K/UL = 1067) ABSOLUTE MONOCYTES (test code = 0.42 K/UL 1068) ABSOLUTE EOSINOPHILS (test code 0.14 K/UL = 1040) ABSOLUTE BASOPHILS (test code = 0.04 K/UL 1069) ABS IMMATURE GRANULOCYTES (test 0.01 K/UL code = 1020) ABS NUCLEATED RBCS (test code = 0.00 K/UL 69617) HEMOGLOBIN [id number] 00:00:00 Test Item Value Reference Range Interpretation Comments HEMOGLOBIN A1c (test code = 19159) 6.4 % HEMOGLOBIN [id number] 00:00:00 Test Item Value Reference Range Interpretation Comments HEMOGLOBIN A1c (test code = 69938) 6.4 % HEMOGLOBIN [id number] 00:00:00 Test Item Value Reference Range Interpretation Comments HEMOGLOBIN A1c (test code = 88273) 6.4 % [id number] 00:00:00 Test Item Value Reference Range Interpretation Comments PTT (test code = 1403) 31.0 SECONDS [id number] 00:00:00 Test Item Value Reference Range Interpretation Comments PTT (test code = 1403) 31.0 SECONDS HEMOGLOBIN [id number] 00:00:00 Test Item Value Reference Range Interpretation Comments HEMOGLOBIN A1c (test code = 08176) 6.2 % HEMOGLOBIN [id number] 00:00:00 Test Item Value Reference Range Interpretation Comments HEMOGLOBIN A1c (test code = 81517) 6.2 % HEMOGLOBIN [id number] 00:00:00 Test Item Value Reference Range Interpretation Comments HEMOGLOBIN A1c (test code = 12852) 6.2 % HEMOGLOBIN [id number] 00:00:00 Test Item Value Reference Range Interpretation Comments HEMOGLOBIN A1c (test code = 40019) 6.2 % LIPID [id number] 00:00:00 Test Item Value Reference Range Interpretation Comments CHOLESTEROL (test code = 2210) 127 MG/DL TRIGLYCERIDES (test code = 2232) 124 MG/DL HDL CHOLESTEROL (test code = 2220) 56 MG/DL CALC LDL CHOL (test code = 2237) 50 MG/DL RISK RATIO LDL/HDL (test code = 0.89 RATIO 2238) LIPID [id number] 00:00:00 Test Item Value Reference Range Interpretation Comments CHOLESTEROL (test code = 2210) 127 MG/DL TRIGLYCERIDES (test code = 2232) 124 MG/DL HDL CHOLESTEROL (test code = 2220) 56 MG/DL CALC LDL CHOL (test code = 2237) 50 MG/DL RISK RATIO LDL/HDL (test code = 0.89 RATIO 2238) COMPREHENSIVE METABOLIC [id number] 00:00:00 Test Item Value Reference Range Interpretation Comments GLUCOSE (test code = 2217) 115 MG/DL BUN (test code = 2208) 11 MG/DL CREATININE (test code = 2214) 0.57 MG/DL eGFR AMER. (test code 114 ML/MIN/1.73 = 56855) eGFR NON- AMER. (test 98 ML/MIN/1.73 code = 96036) CALC BUN/CREAT (test code = 19 RATIO 2235) SODIUM (test code = 2231) 143 MEQ/L POTASSIUM (test code = 2228) 4.4 MEQ/L CHLORIDE (test code = 2215) 106 MEQ/L CARBON DIOXIDE (test code = 23 MEQ/L 220) CALCIUM (test code = 2209) 9.5 MG/DL PROTEIN, TOTAL (test code = 7.3 G/DL 2228) ALBUMIN (test code = 2201) 4.6 G/DL CALC GLOBULIN (test code = 2.7 G/DL 2240) CALC A/G RATIO (test code = 1.7 RATIO 2234) BILIRUBIN, TOTAL (test code = 0.5 MG/DL 2206) ALKALINE PHOSPHATASE (test 93 U/L code = 2204) AST (test code = 2218) 16 U/L ALT (test code = 2219) 14 U/L COMPREHENSIVE METABOLIC [id number] 00:00:00 Test Item Value Reference Range Interpretation Comments GLUCOSE (test code = 2217) 115 MG/DL BUN (test code = 2208) 11 MG/DL CREATININE (test code = 2214) 0.57 MG/DL eGFR AMER. (test code 114 ML/MIN/1.73 = 33129) eGFR NON- AMER. (test 98 ML/MIN/1.73 code = 32808) CALC BUN/CREAT (test code = 19 RATIO 2235) SODIUM (test code = 2231) 143 MEQ/L POTASSIUM (test code = 2228) 4.4 MEQ/L CHLORIDE (test code = 2215) 106 MEQ/L CARBON DIOXIDE (test code = 23 MEQ/L 2206) CALCIUM (test code = 2209) 9.5 MG/DL PROTEIN, TOTAL (test code = 7.3 G/DL 2228) ALBUMIN (test code = 2201) 4.6 G/DL CALC GLOBULIN (test code = 2.7 G/DL 2240) CALC A/G RATIO (test code = 1.7 RATIO 2234) BILIRUBIN, TOTAL (test code = 0.5 MG/DL 2206) ALKALINE PHOSPHATASE (test 93 U/L code = 2204) AST (test code = 2218) 16 U/L ALT (test code = 2219) 14 U/L LIPID [id number] 00:00:00 Test Item Value Reference Range Interpretation Comments CHOLESTEROL (test code = 2210) 127 MG/DL TRIGLYCERIDES (test code = 2232) 124 MG/DL HDL CHOLESTEROL (test code = 2220) 56 MG/DL CALC LDL CHOL (test code = 2237) 50 MG/DL RISK RATIO LDL/HDL (test code = 0.89 RATIO 2238) COMPREHENSIVE METABOLIC [id number] 00:00:00 Test Item Value Reference Range Interpretation Comments GLUCOSE (test code = 2217) 115 MG/DL BUN (test code = 2208) 11 MG/DL CREATININE (test code = 2214) 0.57 MG/DL eGFR AMER. (test code 114 ML/MIN/1.73 = 47800) eGFR NON- AMER. (test 98 ML/MIN/1.73 code = 14859) CALC BUN/CREAT (test code = 19 RATIO 2235) SODIUM (test code = 2231) 143 MEQ/L POTASSIUM (test code = 2228) 4.4 MEQ/L CHLORIDE (test code = 2215) 106 MEQ/L CARBON DIOXIDE (test code = 23 MEQ/L 2206) CALCIUM (test code = 2209) 9.5 MG/DL PROTEIN, TOTAL (test code = 7.3 G/DL 2228) ALBUMIN (test code = 2201) 4.6 G/DL CALC GLOBULIN (test code = 2.7 G/DL 2240) CALC A/G RATIO (test code = 1.7 RATIO 2234) BILIRUBIN, TOTAL (test code = 0.5 MG/DL 2206) ALKALINE PHOSPHATASE (test 93 U/L code = 2204) AST (test code = 2218) 16 U/L ALT (test code = 2219) 14 U/L HEMOGLOBIN [id number] 00:00:00 Test Item Value Reference Range Interpretation Comments HEMOGLOBIN A1c (test code = 95811) 6.2 % HEMOGLOBIN [id number] 00:00:00 Test Item Value Reference Range Interpretation Comments HEMOGLOBIN A1c (test code = 32121) 6.2 % LIPID [id number] 00:00:00 Test Item Value Reference Range Interpretation Comments CHOLESTEROL (test code = 2210) 127 MG/DL TRIGLYCERIDES (test code = 2232) 124 MG/DL HDL CHOLESTEROL (test code = 2220) 56 MG/DL CALC LDL CHOL (test code = 2237) 50 MG/DL RISK RATIO LDL/HDL (test code = 0.89 RATIO 2238) COMPREHENSIVE METABOLIC [id number] 00:00:00 Test Item Value Reference Range Interpretation Comments GLUCOSE (test code = 2217) 115 MG/DL BUN (test code = 2208) 11 MG/DL CREATININE (test code = 2214) 0.57 MG/DL eGFR AMER. (test code 114 ML/MIN/1.73 = 30927) eGFR NON- AMER. (test 98 ML/MIN/1.73 code = 28595) CALC BUN/CREAT (test code = 19 RATIO 2235) SODIUM (test code = 2231) 143 MEQ/L POTASSIUM (test code = 2228) 4.4 MEQ/L CHLORIDE (test code = 2215) 106 MEQ/L CARBON DIOXIDE (test code = 23 MEQ/L 2205) CALCIUM (test code = 2209) 9.5 MG/DL PROTEIN, TOTAL (test code = 7.3 G/DL 2228) ALBUMIN (test code = 2201) 4.6 G/DL CALC GLOBULIN (test code = 2.7 G/DL 2240) CALC A/G RATIO (test code = 1.7 RATIO 4) BILIRUBIN, TOTAL (test code = 0.5 MG/DL 2206) ALKALINE PHOSPHATASE (test 93 U/L code = 2204) AST (test code = 2218) 16 U/L ALT (test code = 2219) 14 U/L HEMOGLOBIN [id number] 00:00:00 Test Item Value Reference Range Interpretation Comments HEMOGLOBIN A1c (test code = 21867) 6.2 % HEMOGLOBIN [id number] 00:00:00 Test Item Value Reference Range Interpretation Comments HEMOGLOBIN A1c (test code = 45115) 6.2 % HEMOGLOBIN [id number] 00:00:00 Test Item Value Reference Range Interpretation Comments HEMOGLOBIN A1c (test code = 87298) 6.2 % LIPID [id number] 00:00:00 Test Item Value Reference Range Interpretation Comments CHOLESTEROL (test code = 2210) 127 MG/DL TRIGLYCERIDES (test code = 2232) 124 MG/DL HDL CHOLESTEROL (test code = 2220) 56 MG/DL CALC LDL CHOL (test code = 2237) 50 MG/DL RISK RATIO LDL/HDL (test code = 0.89 RATIO 2238) LIPID [id number] 00:00:00 Test Item Value Reference Range Interpretation Comments CHOLESTEROL (test code = 2210) 127 MG/DL TRIGLYCERIDES (test code = 2232) 124 MG/DL HDL CHOLESTEROL (test code = 2220) 56 MG/DL CALC LDL CHOL (test code = 2237) 50 MG/DL RISK RATIO LDL/HDL (test code = 0.89 RATIO 2238) COMPREHENSIVE METABOLIC [id number] 00:00:00 Test Item Value Reference Range Interpretation Comments GLUCOSE (test code = 2217) 115 MG/DL BUN (test code = 2208) 11 MG/DL CREATININE (test code = 2214) 0.57 MG/DL eGFR AMER. (test code 114 ML/MIN/1.73 = 49125) eGFR NON- AMER. (test 98 ML/MIN/1.73 code = 05347) CALC BUN/CREAT (test code = 19 RATIO 2235) SODIUM (test code = 2231) 143 MEQ/L POTASSIUM (test code = 2228) 4.4 MEQ/L CHLORIDE (test code = 2215) 106 MEQ/L CARBON DIOXIDE (test code = 23 MEQ/L 2205) CALCIUM (test code = 2209) 9.5 MG/DL PROTEIN, TOTAL (test code = 7.3 G/DL 2228) ALBUMIN (test code = 2201) 4.6 G/DL CALC GLOBULIN (test code = 2.7 G/DL 0) CALC A/G RATIO (test code = 1.7 RATIO 223) BILIRUBIN, TOTAL (test code = 0.5 MG/DL 2206) ALKALINE PHOSPHATASE (test 93 U/L code = 2204) AST (test code = 2218) 16 U/L ALT (test code = 2219) 14 U/L COMPREHENSIVE METABOLIC [id number] 00:00:00 Test Item Value Reference Range Interpretation Comments GLUCOSE (test code = 2217) 115 MG/DL BUN (test code = 2208) 11 MG/DL CREATININE (test code = 2214) 0.57 MG/DL eGFR AMER. (test code 114 ML/MIN/1.73 = 87627) eGFR NON- AMER. (test 98 ML/MIN/1.73 code = 67221) CALC BUN/CREAT (test code = 19 RATIO 2235) SODIUM (test code = 2231) 143 MEQ/L POTASSIUM (test code = 2228) 4.4 MEQ/L CHLORIDE (test code = 2215) 106 MEQ/L CARBON DIOXIDE (test code = 23 MEQ/L 2205) CALCIUM (test code = 2209) 9.5 MG/DL PROTEIN, TOTAL (test code = 7.3 G/DL 2228) ALBUMIN (test code = 2201) 4.6 G/DL CALC GLOBULIN (test code = 2.7 G/DL 2239) CALC A/G RATIO (test code = 1.7 RATIO 2233) BILIRUBIN, TOTAL (test code = 0.5 MG/DL 2206) ALKALINE PHOSPHATASE (test 93 U/L code = 2204) AST (test code = 2218) 16 U/L ALT (test code = 2219) 14 U/L HEMOGLOBIN [id number] 00:00:00 Test Item Value Reference Range Interpretation Comments HEMOGLOBIN A1c (test code = 17695) 6.2 % HEMOGLOBIN [id number] 00:00:00 Test Item Value Reference Range Interpretation Comments HEMOGLOBIN A1c (test code = 72142) 6.2 % HEMOGLOBIN [id number] 00:00:00 Test Item Value Reference Range Interpretation Comments HEMOGLOBIN A1c (test code = 19438) 6.2 % LIPID [id number] 00:00:00 Test Item Value Reference Range Interpretation Comments CHOLESTEROL (test code = 2210) 127 MG/DL TRIGLYCERIDES (test code = 2232) 124 MG/DL HDL CHOLESTEROL (test code = 2220) 56 MG/DL CALC LDL CHOL (test code = 2237) 50 MG/DL RISK RATIO LDL/HDL (test code = 0.89 RATIO 2238) LIPID [id number] 00:00:00 Test Item Value Reference Range Interpretation Comments CHOLESTEROL (test code = 2210) 127 MG/DL TRIGLYCERIDES (test code = 2232) 124 MG/DL HDL CHOLESTEROL (test code = 2220) 56 MG/DL CALC LDL CHOL (test code = 2237) 50 MG/DL RISK RATIO LDL/HDL (test code = 0.89 RATIO 2238) COMPREHENSIVE METABOLIC [id number] 00:00:00 Test Item Value Reference Range Interpretation Comments GLUCOSE (test code = 2217) 115 MG/DL BUN (test code = 2208) 11 MG/DL CREATININE (test code = 2214) 0.57 MG/DL eGFR AMER. (test code 114 ML/MIN/1.73 = 17825) eGFR NON- AMER. (test 98 ML/MIN/1.73 code = 31212) CALC BUN/CREAT (test code = 19 RATIO 2235) SODIUM (test code = 2231) 143 MEQ/L POTASSIUM (test code = 2228) 4.4 MEQ/L CHLORIDE (test code = 2215) 106 MEQ/L CARBON DIOXIDE (test code = 23 MEQ/L 2206) CALCIUM (test code = 2209) 9.5 MG/DL PROTEIN, TOTAL (test code = 7.3 G/DL 2228) ALBUMIN (test code = 2201) 4.6 G/DL CALC GLOBULIN (test code = 2.7 G/DL 0) CALC A/G RATIO (test code = 1.7 RATIO 4) BILIRUBIN, TOTAL (test code = 0.5 MG/DL 2206) ALKALINE PHOSPHATASE (test 93 U/L code = 2204) AST (test code = 2218) 16 U/L ALT (test code = 2219) 14 U/L COMPREHENSIVE METABOLIC [id number] 00:00:00 Test Item Value Reference Range Interpretation Comments GLUCOSE (test code = 2217) 115 MG/DL BUN (test code = 2208) 11 MG/DL CREATININE (test code = 2214) 0.57 MG/DL eGFR AMER. (test code 114 ML/MIN/1.73 = 59868) eGFR NON- AMER. (test 98 ML/MIN/1.73 code = 80944) CALC BUN/CREAT (test code = 19 RATIO 2235) SODIUM (test code = 2231) 143 MEQ/L POTASSIUM (test code = 2228) 4.4 MEQ/L CHLORIDE (test code = 2215) 106 MEQ/L CARBON DIOXIDE (test code = 23 MEQ/L 2206) CALCIUM (test code = 2209) 9.5 MG/DL PROTEIN, TOTAL (test code = 7.3 G/DL 2228) ALBUMIN (test code = 2201) 4.6 G/DL CALC GLOBULIN (test code = 2.7 G/DL 2240) CALC A/G RATIO (test code = 1.7 RATIO 2234) BILIRUBIN, TOTAL (test code = 0.5 MG/DL 2206) ALKALINE PHOSPHATASE (test 93 U/L code = 2204) AST (test code = 2218) 16 U/L ALT (test code = 2219) 14 U/L HEMOGLOBIN [id number] 00:00:00 Test Item Value Reference Range Interpretation Comments HEMOGLOBIN A1c (test code = 54710) 6.2 % LIPID PANEL [ADDED]2020-11-12 00:00:00 Test Item Value Reference Range Interpretation Comments CHOLESTEROL (test code = 2210) 208 MG/DL TRIGLYCERIDES (test code = 2232) 210 MG/DL HDL CHOLESTEROL (test code = 2220) 52 MG/DL CALC LDL CHOL (test code = 2237) 123 MG/DL RISK RATIO LDL/HDL (test code = 2.37 RATIO 2238) LIPID PANEL [ADDED]2020-11-12 00:00:00 Test Item Value Reference Range Interpretation Comments CHOLESTEROL (test code = 2210) 208 MG/DL TRIGLYCERIDES (test code = 2232) 210 MG/DL HDL CHOLESTEROL (test code = 2220) 52 MG/DL CALC LDL CHOL (test code = 2237) 123 MG/DL RISK RATIO LDL/HDL (test code = 2.37 RATIO 2238) COMPREHENSIVE METABOLIC PANEL [ADDED]2020-11-12 00:00:00 Test Item Value Reference Range Interpretation Comments GLUCOSE (test code = 2217) 105 MG/DL BUN (test code = 2208) 20 MG/DL CREATININE (test code = 2214) 0.63 MG/DL eGFR AMER. (test code 111 ML/MIN/1.73 = 97707) eGFR NON- AMER. (test 95 ML/MIN/1.73 code = 93413) CALC BUN/CREAT (test code = 32 RATIO 2235) SODIUM (test code = 2231) 144 MEQ/L POTASSIUM (test code = 2228) 4.2 MEQ/L CHLORIDE (test code = 2215) 104 MEQ/L CARBON DIOXIDE (test code = 25 MEQ/L 2205) CALCIUM (test code = 2209) 9.7 MG/DL PROTEIN, TOTAL (test code = 7.5 G/DL 2228) ALBUMIN (test code = 2201) 4.4 G/DL CALC GLOBULIN (test code = 3.1 G/DL 2240) CALC A/G RATIO (test code = 1.4 RATIO 2234) BILIRUBIN, TOTAL (test code = 0.3 MG/DL 2206) ALKALINE PHOSPHATASE (test 111 U/L code = 2204) AST (test code = 2218) 13 U/L ALT (test code = 2219) 12 U/L COMPREHENSIVE METABOLIC PANEL [ADDED]2020-11-12 00:00:00 Test Item Value Reference Range Interpretation Comments GLUCOSE (test code = 2217) 105 MG/DL BUN (test code = 2208) 20 MG/DL CREATININE (test code = 2214) 0.63 MG/DL eGFR AMER. (test code 111 ML/MIN/1.73 = 62085) eGFR NON- AMER. (test 95 ML/MIN/1.73 code = 56627) CALC BUN/CREAT (test code = 32 RATIO 2235) SODIUM (test code = 2231) 144 MEQ/L POTASSIUM (test code = 2228) 4.2 MEQ/L CHLORIDE (test code = 2215) 104 MEQ/L CARBON DIOXIDE (test code = 25 MEQ/L 2205) CALCIUM (test code = 2209) 9.7 MG/DL PROTEIN, TOTAL (test code = 7.5 G/DL 2228) ALBUMIN (test code = 2201) 4.4 G/DL CALC GLOBULIN (test code = 3.1 G/DL 2240) CALC A/G RATIO (test code = 1.4 RATIO 2234) BILIRUBIN, TOTAL (test code = 0.3 MG/DL 2206) ALKALINE PHOSPHATASE (test 111 U/L code = 2204) AST (test code = 2218) 13 U/L ALT (test code = 2219) 12 U/L LIPID PANEL [ADDED]2020-11-12 00:00:00 Test Item Value Reference Range Interpretation Comments CHOLESTEROL (test code = 2210) 208 MG/DL TRIGLYCERIDES (test code = 2232) 210 MG/DL HDL CHOLESTEROL (test code = 2220) 52 MG/DL CALC LDL CHOL (test code = 2237) 123 MG/DL RISK RATIO LDL/HDL (test code = 2.37 RATIO 2238) COMPREHENSIVE METABOLIC PANEL [ADDED]2020-11-12 00:00:00 Test Item Value Reference Range Interpretation Comments GLUCOSE (test code = 2217) 105 MG/DL BUN (test code = 2208) 20 MG/DL CREATININE (test code = 2214) 0.63 MG/DL eGFR AMER. (test code 111 ML/MIN/1.73 = 28452) eGFR NON- AMER. (test 95 ML/MIN/1.73 code = 08502) CALC BUN/CREAT (test code = 32 RATIO 2235) SODIUM (test code = 2231) 144 MEQ/L POTASSIUM (test code = 2228) 4.2 MEQ/L CHLORIDE (test code = 2215) 104 MEQ/L CARBON DIOXIDE (test code = 25 MEQ/L 2205) CALCIUM (test code = 2209) 9.7 MG/DL PROTEIN, TOTAL (test code = 7.5 G/DL 2228) ALBUMIN (test code = 2201) 4.4 G/DL CALC GLOBULIN (test code = 3.1 G/DL 2240) CALC A/G RATIO (test code = 1.4 RATIO 2234) BILIRUBIN, TOTAL (test code = 0.3 MG/DL 2206) ALKALINE PHOSPHATASE (test 111 U/L code = 2204) AST (test code = 2218) 13 U/L ALT (test code = 2219) 12 U/L LIPID PANEL [ADDED]2020-11-12 00:00:00 Test Item Value Reference Range Interpretation Comments CHOLESTEROL (test code = 2210) 208 MG/DL TRIGLYCERIDES (test code = 2232) 210 MG/DL HDL CHOLESTEROL (test code = 2220) 52 MG/DL CALC LDL CHOL (test code = 2237) 123 MG/DL RISK RATIO LDL/HDL (test code = 2.37 RATIO 2238) COMPREHENSIVE METABOLIC PANEL [ADDED]2020-11-12 00:00:00 Test Item Value Reference Range Interpretation Comments GLUCOSE (test code = 2217) 105 MG/DL BUN (test code = 2208) 20 MG/DL CREATININE (test code = 2214) 0.63 MG/DL eGFR AMER. (test code 111 ML/MIN/1.73 = 57812) eGFR NON- AMER. (test 95 ML/MIN/1.73 code = 26569) CALC BUN/CREAT (test code = 32 RATIO 2235) SODIUM (test code = 2231) 144 MEQ/L POTASSIUM (test code = 2228) 4.2 MEQ/L CHLORIDE (test code = 2215) 104 MEQ/L CARBON DIOXIDE (test code = 25 MEQ/L 2205) CALCIUM (test code = 2209) 9.7 MG/DL PROTEIN, TOTAL (test code = 7.5 G/DL 2228) ALBUMIN (test code = 2201) 4.4 G/DL CALC GLOBULIN (test code = 3.1 G/DL 224) CALC A/G RATIO (test code = 1.4 RATIO 223) BILIRUBIN, TOTAL (test code = 0.3 MG/DL 2206) ALKALINE PHOSPHATASE (test 111 U/L code = 2204) AST (test code = 2218) 13 U/L ALT (test code = 2219) 12 U/L LIPID PANEL [ADDED]2020-11-12 00:00:00 Test Item Value Reference Range Interpretation Comments CHOLESTEROL (test code = 2210) 208 MG/DL TRIGLYCERIDES (test code = 2232) 210 MG/DL HDL CHOLESTEROL (test code = 2220) 52 MG/DL CALC LDL CHOL (test code = 2237) 123 MG/DL RISK RATIO LDL/HDL (test code = 2.37 RATIO 2238) LIPID PANEL [ADDED]2020-11-12 00:00:00 Test Item Value Reference Range Interpretation Comments CHOLESTEROL (test code = 2210) 208 MG/DL TRIGLYCERIDES (test code = 2232) 210 MG/DL HDL CHOLESTEROL (test code = 2220) 52 MG/DL CALC LDL CHOL (test code = 2237) 123 MG/DL RISK RATIO LDL/HDL (test code = 2.37 RATIO 2238) COMPREHENSIVE METABOLIC PANEL [ADDED]2020-11-12 00:00:00 Test Item Value Reference Range Interpretation Comments GLUCOSE (test code = 2217) 105 MG/DL BUN (test code = 2208) 20 MG/DL CREATININE (test code = 2214) 0.63 MG/DL eGFR AMER. (test code 111 ML/MIN/1.73 = 34604) eGFR NON- AMER. (test 95 ML/MIN/1.73 code = 49214) CALC BUN/CREAT (test code = 32 RATIO 2235) SODIUM (test code = 2231) 144 MEQ/L POTASSIUM (test code = 2228) 4.2 MEQ/L CHLORIDE (test code = 2215) 104 MEQ/L CARBON DIOXIDE (test code = 25 MEQ/L 2205) CALCIUM (test code = 2209) 9.7 MG/DL PROTEIN, TOTAL (test code = 7.5 G/DL 2228) ALBUMIN (test code = 2201) 4.4 G/DL CALC GLOBULIN (test code = 3.1 G/DL 2240) CALC A/G RATIO (test code = 1.4 RATIO 2234) BILIRUBIN, TOTAL (test code = 0.3 MG/DL 2206) ALKALINE PHOSPHATASE (test 111 U/L code = 2204) AST (test code = 2218) 13 U/L ALT (test code = 2219) 12 U/L COMPREHENSIVE METABOLIC PANEL [ADDED]2020-11-12 00:00:00 Test Item Value Reference Range Interpretation Comments GLUCOSE (test code = 2217) 105 MG/DL BUN (test code = 2208) 20 MG/DL CREATININE (test code = 2214) 0.63 MG/DL eGFR AMER. (test code 111 ML/MIN/1.73 = 25291) eGFR NON- AMER. (test 95 ML/MIN/1.73 code = 75806) CALC BUN/CREAT (test code = 32 RATIO 2235) SODIUM (test code = 2231) 144 MEQ/L POTASSIUM (test code = 2228) 4.2 MEQ/L CHLORIDE (test code = 2215) 104 MEQ/L CARBON DIOXIDE (test code = 25 MEQ/L 2205) CALCIUM (test code = 2209) 9.7 MG/DL PROTEIN, TOTAL (test code = 7.5 G/DL 2228) ALBUMIN (test code = 2201) 4.4 G/DL CALC GLOBULIN (test code = 3.1 G/DL 2240) CALC A/G RATIO (test code = 1.4 RATIO 2234) BILIRUBIN, TOTAL (test code = 0.3 MG/DL 2206) ALKALINE PHOSPHATASE (test 111 U/L code = 2204) AST (test code = 2218) 13 U/L ALT (test code = 2219) 12 U/L LIPID PANEL [ADDED]2020-11-12 00:00:00 Test Item Value Reference Range Interpretation Comments CHOLESTEROL (test code = 2210) 208 MG/DL TRIGLYCERIDES (test code = 2232) 210 MG/DL HDL CHOLESTEROL (test code = 2220) 52 MG/DL CALC LDL CHOL (test code = 2237) 123 MG/DL RISK RATIO LDL/HDL (test code = 2.37 RATIO 2238) LIPID PANEL [ADDED]2020-11-12 00:00:00 Test Item Value Reference Range Interpretation Comments CHOLESTEROL (test code = 2210) 208 MG/DL TRIGLYCERIDES (test code = 2232) 210 MG/DL HDL CHOLESTEROL (test code = 2220) 52 MG/DL CALC LDL CHOL (test code = 2237) 123 MG/DL RISK RATIO LDL/HDL (test code = 2.37 RATIO 2238) COMPREHENSIVE METABOLIC PANEL [ADDED]2020-11-12 00:00:00 Test Item Value Reference Range Interpretation Comments GLUCOSE (test code = 2217) 105 MG/DL BUN (test code = 2208) 20 MG/DL CREATININE (test code = 2214) 0.63 MG/DL eGFR AMER. (test code 111 ML/MIN/1.73 = 03685) eGFR NON- AMER. (test 95 ML/MIN/1.73 code = 52123) CALC BUN/CREAT (test code = 32 RATIO 2235) SODIUM (test code = 2231) 144 MEQ/L POTASSIUM (test code = 2228) 4.2 MEQ/L CHLORIDE (test code = 2215) 104 MEQ/L CARBON DIOXIDE (test code = 25 MEQ/L 220) CALCIUM (test code = 2209) 9.7 MG/DL PROTEIN, TOTAL (test code = 7.5 G/DL 2228) ALBUMIN (test code = 2201) 4.4 G/DL CALC GLOBULIN (test code = 3.1 G/DL 2240) CALC A/G RATIO (test code = 1.4 RATIO 2234) BILIRUBIN, TOTAL (test code = 0.3 MG/DL 2206) ALKALINE PHOSPHATASE (test 111 U/L code = 2204) AST (test code = 2218) 13 U/L ALT (test code = 2219) 12 U/L COMPREHENSIVE METABOLIC PANEL [ADDED]2020-11-12 00:00:00 Test Item Value Reference Range Interpretation Comments GLUCOSE (test code = 2217) 105 MG/DL BUN (test code = 2208) 20 MG/DL CREATININE (test code = 2214) 0.63 MG/DL eGFR AMER. (test code 111 ML/MIN/1.73 = 27777) eGFR NON- AMER. (test 95 ML/MIN/1.73 code = 23642) CALC BUN/CREAT (test code = 32 RATIO 2235) SODIUM (test code = 2231) 144 MEQ/L POTASSIUM (test code = 2228) 4.2 MEQ/L CHLORIDE (test code = 2215) 104 MEQ/L CARBON DIOXIDE (test code = 25 MEQ/L 2205) CALCIUM (test code = 2209) 9.7 MG/DL PROTEIN, TOTAL (test code = 7.5 G/DL 2228) ALBUMIN (test code = 2201) 4.4 G/DL CALC GLOBULIN (test code = 3.1 G/DL 2239) CALC A/G RATIO (test code = 1.4 RATIO 2233) BILIRUBIN, TOTAL (test code = 0.3 MG/DL 2206) ALKALINE PHOSPHATASE (test 111 U/L code = 2204) AST (test code = 2218) 13 U/L ALT (test code = 2219) 12 U/L CBC W/AUTO DIFF WITH PLATELETS [ADDED]2020-11-10 00:00:00 Test Item Value Reference Range Interpretation Comments WBC (test code = 1001) 7.7 K/UL RBC (test code = 1002) 4.59 M/UL HEMOGLOBIN (test code = 1003) 12.6 G/DL HEMATOCRIT (test code = 1004) 38.7 % MCV (test code = 1005) 84.3 fL MCH (test code = 1006) 27.5 PG MCHC (test code = 1007) 32.6 G/DL RDW (test code = 1038) 14.3 % NEUTROPHILS (test code = 1008) 66.9 % LYMPHOCYTES (test code = 1010) 25.7 % MONOCYTES (test code = 1011) 5.2 % EOSINOPHILS (test code = 1012) 1.6 % BASOPHILS (test code = 1013) 0.6 % PLATELET COUNT (test code = 1015) 264 K/UL CBC W/AUTO DIFF WITH PLATELETS [ADDED]2020-11-10 00:00:00 Test Item Value Reference Range Interpretation Comments WBC (test code = 1001) 7.7 K/UL RBC (test code = 1002) 4.59 M/UL HEMOGLOBIN (test code = 1003) 12.6 G/DL HEMATOCRIT (test code = 1004) 38.7 % MCV (test code = 1005) 84.3 fL MCH (test code = 1006) 27.5 PG MCHC (test code = 1007) 32.6 G/DL RDW (test code = 1038) 14.3 % NEUTROPHILS (test code = 1008) 66.9 % LYMPHOCYTES (test code = 1010) 25.7 % MONOCYTES (test code = 1011) 5.2 % EOSINOPHILS (test code = 1012) 1.6 % BASOPHILS (test code = 1013) 0.6 % PLATELET COUNT (test code = 1015) 264 K/UL CBC W/AUTO DIFF WITH PLATELETS [ADDED]2020-11-10 00:00:00 Test Item Value Reference Range Interpretation Comments WBC (test code = 1001) 7.7 K/UL RBC (test code = 1002) 4.59 M/UL HEMOGLOBIN (test code = 1003) 12.6 G/DL HEMATOCRIT (test code = 1004) 38.7 % MCV (test code = 1005) 84.3 fL MCH (test code = 1006) 27.5 PG MCHC (test code = 1007) 32.6 G/DL RDW (test code = 1038) 14.3 % NEUTROPHILS (test code = 1008) 66.9 % LYMPHOCYTES (test code = 1010) 25.7 % MONOCYTES (test code = 1011) 5.2 % EOSINOPHILS (test code = 1012) 1.6 % BASOPHILS (test code = 1013) 0.6 % PLATELET COUNT (test code = 1015) 264 K/UL HEMOGLOBIN A1c [ADDED]2020-11-10 00:00:00 Test Item Value Reference Range Interpretation Comments HEMOGLOBIN A1c (test code = 40519) 6.5 % CBC W/AUTO DIFF WITH PLATELETS [ADDED]2020-11-10 00:00:00 Test Item Value Reference Range Interpretation Comments WBC (test code = 1001) 7.7 K/UL RBC (test code = 1002) 4.59 M/UL HEMOGLOBIN (test code = 1003) 12.6 G/DL HEMATOCRIT (test code = 1004) 38.7 % MCV (test code = 1005) 84.3 fL MCH (test code = 1006) 27.5 PG MCHC (test code = 1007) 32.6 G/DL RDW (test code = 1038) 14.3 % NEUTROPHILS (test code = 1008) 66.9 % LYMPHOCYTES (test code = 1010) 25.7 % MONOCYTES (test code = 1011) 5.2 % EOSINOPHILS (test code = 1012) 1.6 % BASOPHILS (test code = 1013) 0.6 % PLATELET COUNT (test code = 1015) 264 K/UL HEMOGLOBIN A1c [ADDED]2020-11-10 00:00:00 Test Item Value Reference Range Interpretation Comments HEMOGLOBIN A1c (test code = 53565) 6.5 % HEMOGLOBIN A1c [ADDED]2020-11-10 00:00:00 Test Item Value Reference Range Interpretation Comments HEMOGLOBIN A1c (test code = 40764) 6.5 % HEMOGLOBIN A1c [ADDED]2020-11-10 00:00:00 Test Item Value Reference Range Interpretation Comments HEMOGLOBIN A1c (test code = 71947) 6.5 % HEMOGLOBIN A1c [ADDED]2020-11-10 00:00:00 Test Item Value Reference Range Interpretation Comments HEMOGLOBIN A1c (test code = 87311) 6.5 % CBC W/AUTO DIFF WITH PLATELETS [ADDED]2020-11-10 00:00:00 Test Item Value Reference Range Interpretation Comments WBC (test code = 1001) 7.7 K/UL RBC (test code = 1002) 4.59 M/UL HEMOGLOBIN (test code = 1003) 12.6 G/DL HEMATOCRIT (test code = 1004) 38.7 % MCV (test code = 1005) 84.3 fL MCH (test code = 1006) 27.5 PG MCHC (test code = 1007) 32.6 G/DL RDW (test code = 1038) 14.3 % NEUTROPHILS (test code = 1008) 66.9 % LYMPHOCYTES (test code = 1010) 25.7 % MONOCYTES (test code = 1011) 5.2 % EOSINOPHILS (test code = 1012) 1.6 % BASOPHILS (test code = 1013) 0.6 % PLATELET COUNT (test code = 1015) 264 K/UL CBC W/AUTO DIFF WITH PLATELETS [ADDED]2020-11-10 00:00:00 Test Item Value Reference Range Interpretation Comments WBC (test code = 1001) 7.7 K/UL RBC (test code = 1002) 4.59 M/UL HEMOGLOBIN (test code = 1003) 12.6 G/DL HEMATOCRIT (test code = 1004) 38.7 % MCV (test code = 1005) 84.3 fL MCH (test code = 1006) 27.5 PG MCHC (test code = 1007) 32.6 G/DL RDW (test code = 1038) 14.3 % NEUTROPHILS (test code = 1008) 66.9 % LYMPHOCYTES (test code = 1010) 25.7 % MONOCYTES (test code = 1011) 5.2 % EOSINOPHILS (test code = 1012) 1.6 % BASOPHILS (test code = 1013) 0.6 % PLATELET COUNT (test code = 1015) 264 K/UL HEMOGLOBIN A1c [ADDED]2020-11-10 00:00:00 Test Item Value Reference Range Interpretation Comments HEMOGLOBIN A1c (test code = 64335) 6.5 % HEMOGLOBIN A1c [ADDED]2020-11-10 00:00:00 Test Item Value Reference Range Interpretation Comments HEMOGLOBIN A1c (test code = 52003) 6.5 % CBC W/AUTO DIFF WITH PLATELETS [ADDED]2020-11-10 00:00:00 Test Item Value Reference Range Interpretation Comments WBC (test code = 1001) 7.7 K/UL RBC (test code = 1002) 4.59 M/UL HEMOGLOBIN (test code = 1003) 12.6 G/DL HEMATOCRIT (test code = 1004) 38.7 % MCV (test code = 1005) 84.3 fL MCH (test code = 1006) 27.5 PG MCHC (test code = 1007) 32.6 G/DL RDW (test code = 1038) 14.3 % NEUTROPHILS (test code = 1008) 66.9 % LYMPHOCYTES (test code = 1010) 25.7 % MONOCYTES (test code = 1011) 5.2 % EOSINOPHILS (test code = 1012) 1.6 % BASOPHILS (test code = 1013) 0.6 % PLATELET COUNT (test code = 1015) 264 K/UL CBC W/AUTO DIFF WITH PLATELETS [ADDED]2020-11-10 00:00:00 Test Item Value Reference Range Interpretation Comments WBC (test code = 1001) 7.7 K/UL RBC (test code = 1002) 4.59 M/UL HEMOGLOBIN (test code = 1003) 12.6 G/DL HEMATOCRIT (test code = 1004) 38.7 % MCV (test code = 1005) 84.3 fL MCH (test code = 1006) 27.5 PG MCHC (test code = 1007) 32.6 G/DL RDW (test code = 1038) 14.3 % NEUTROPHILS (test code = 1008) 66.9 % LYMPHOCYTES (test code = 1010) 25.7 % MONOCYTES (test code = 1011) 5.2 % EOSINOPHILS (test code = 1012) 1.6 % BASOPHILS (test code = 1013) 0.6 % PLATELET COUNT (test code = 1015) 264 K/UL CBC W/AUTO DIFF WITH PLATELETS [ADDED]2020-11-10 00:00:00 Test Item Value Reference Range Interpretation Comments WBC (test code = 1001) 7.7 K/UL RBC (test code = 1002) 4.59 M/UL HEMOGLOBIN (test code = 1003) 12.6 G/DL HEMATOCRIT (test code = 1004) 38.7 % MCV (test code = 1005) 84.3 fL MCH (test code = 1006) 27.5 PG MCHC (test code = 1007) 32.6 G/DL RDW (test code = 1038) 14.3 % NEUTROPHILS (test code = 1008) 66.9 % LYMPHOCYTES (test code = 1010) 25.7 % MONOCYTES (test code = 1011) 5.2 % EOSINOPHILS (test code = 1012) 1.6 % BASOPHILS (test code = 1013) 0.6 % PLATELET COUNT (test code = 1015) 264 K/UL HEMOGLOBIN A1c [ADDED]2020-11-10 00:00:00 Test Item Value Reference Range Interpretation Comments HEMOGLOBIN A1c (test code = 42680) 6.5 % HEMOGLOBIN A1c [ADDED]2020-11-10 00:00:00 Test Item Value Reference Range Interpretation Comments HEMOGLOBIN A1c (test code = 57395) 6.5 % HEMOGLOBIN A1c [ADDED]2020-11-10 00:00:00 Test Item Value Reference Range Interpretation Comments HEMOGLOBIN A1c (test code = 29290) 6.5 % CBC W/AUTO DIFF WITH PLATELETS [ADDED]2020-11-10 00:00:00 Test Item Value Reference Range Interpretation Comments WBC (test code = 1001) 7.7 K/UL RBC (test code = 1002) 4.59 M/UL HEMOGLOBIN (test code = 1003) 12.6 G/DL HEMATOCRIT (test code = 1004) 38.7 % MCV (test code = 1005) 84.3 fL MCH (test code = 1006) 27.5 PG MCHC (test code = 1007) 32.6 G/DL RDW (test code = 1038) 14.3 % NEUTROPHILS (test code = 1008) 66.9 % LYMPHOCYTES (test code = 1010) 25.7 % MONOCYTES (test code = 1011) 5.2 % EOSINOPHILS (test code = 1012) 1.6 % BASOPHILS (test code = 1013) 0.6 % PLATELET COUNT (test code = 1015) 264 K/UL CBC W/AUTO DIFF WITH PLATELETS [ADDED]2020-11-10 00:00:00 Test Item Value Reference Range Interpretation Comments WBC (test code = 1001) 7.7 K/UL RBC (test code = 1002) 4.59 M/UL HEMOGLOBIN (test code = 1003) 12.6 G/DL HEMATOCRIT (test code = 1004) 38.7 % MCV (test code = 1005) 84.3 fL MCH (test code = 1006) 27.5 PG MCHC (test code = 1007) 32.6 G/DL RDW (test code = 1038) 14.3 % NEUTROPHILS (test code = 1008) 66.9 % LYMPHOCYTES (test code = 1010) 25.7 % MONOCYTES (test code = 1011) 5.2 % EOSINOPHILS (test code = 1012) 1.6 % BASOPHILS (test code = 1013) 0.6 % PLATELET COUNT (test code = 1015) 264 K/UL CBC W/AUTO DIFF WITH PLATELETS [ADDED]2020-11-10 00:00:00 Test Item Value Reference Range Interpretation Comments WBC (test code = 1001) 7.7 K/UL RBC (test code = 1002) 4.59 M/UL HEMOGLOBIN (test code = 1003) 12.6 G/DL HEMATOCRIT (test code = 1004) 38.7 % MCV (test code = 1005) 84.3 fL MCH (test code = 1006) 27.5 PG MCHC (test code = 1007) 32.6 G/DL RDW (test code = 1038) 14.3 % NEUTROPHILS (test code = 1008) 66.9 % LYMPHOCYTES (test code = 1010) 25.7 % MONOCYTES (test code = 1011) 5.2 % EOSINOPHILS (test code = 1012) 1.6 % BASOPHILS (test code = 1013) 0.6 % PLATELET COUNT (test code = 1015) 264 K/UL HEMOGLOBIN A1c [ADDED]2020-11-10 00:00:00 Test Item Value Reference Range Interpretation Comments HEMOGLOBIN A1c (test code = 88099) 6.5 % HEMOGLOBIN A1c [ADDED]2020-11-10 00:00:00 Test Item Value Reference Range Interpretation Comments HEMOGLOBIN A1c (test code = 11799) 6.5 % HEMOGLOBIN A1c [ADDED]2020-11-10 00:00:00 Test Item Value Reference Range Interpretation Comments HEMOGLOBIN A1c (test code = 80945) 6.5 % CBC W/AUTO DIFF WITH PLATELETS [ADDED]2020-11-10 00:00:00 Test Item Value Reference Range Interpretation Comments WBC (test code = 1001) 7.7 K/UL RBC (test code = 1002) 4.59 M/UL HEMOGLOBIN (test code = 1003) 12.6 G/DL HEMATOCRIT (test code = 1004) 38.7 % MCV (test code = 1005) 84.3 fL MCH (test code = 1006) 27.5 PG MCHC (test code = 1007) 32.6 G/DL RDW (test code = 1038) 14.3 % NEUTROPHILS (test code = 1008) 66.9 % LYMPHOCYTES (test code = 1010) 25.7 % MONOCYTES (test code = 1011) 5.2 % EOSINOPHILS (test code = 1012) 1.6 % BASOPHILS (test code = 1013) 0.6 % PLATELET COUNT (test code = 1015) 264 K/UL COMPREHENSIVE METABOLIC [id number] 00:00:00 Test Item Value Reference Range Interpretation Comments GLUCOSE (test code = 2217) 174 MG/DL BUN (test code = 2208) 15 MG/DL CREATININE (test code = 2214) 0.70 MG/DL eGFR AMER. (test code 108 ML/MIN/1.73 = 36176) eGFR NON- AMER. (test 93 ML/MIN/1.73 code = 68862) CALC BUN/CREAT (test code = 21 RATIO 2235) SODIUM (test code = 2231) 140 MEQ/L POTASSIUM (test code = 2228) 4.4 MEQ/L CHLORIDE (test code = 2215) 103 MEQ/L CARBON DIOXIDE (test code = 26 MEQ/L 2205) CALCIUM (test code = 2209) 9.0 MG/DL PROTEIN, TOTAL (test code = 7.1 G/DL 2228) ALBUMIN (test code = 2201) 4.2 G/DL CALC GLOBULIN (test code = 2.9 G/DL 2240) CALC A/G RATIO (test code = 1.4 RATIO 2234) BILIRUBIN, TOTAL (test code = 0.2 MG/DL 2206) ALKALINE PHOSPHATASE (test 119 U/L code = 2204) AST (test code = 2218) 16 U/L ALT (test code = 2219) 12 U/L COMPREHENSIVE METABOLIC [id number] 00:00:00 Test Item Value Reference Range Interpretation Comments GLUCOSE (test code = 2217) 174 MG/DL BUN (test code = 2208) 15 MG/DL CREATININE (test code = 2214) 0.70 MG/DL eGFR AMER. (test code 108 ML/MIN/1.73 = 91463) eGFR NON- AMER. (test 93 ML/MIN/1.73 code = 57029) CALC BUN/CREAT (test code = 21 RATIO 2235) SODIUM (test code = 2231) 140 MEQ/L POTASSIUM (test code = 2228) 4.4 MEQ/L CHLORIDE (test code = 2215) 103 MEQ/L CARBON DIOXIDE (test code = 26 MEQ/L 2205) CALCIUM (test code = 2209) 9.0 MG/DL PROTEIN, TOTAL (test code = 7.1 G/DL 2228) ALBUMIN (test code = 2201) 4.2 G/DL CALC GLOBULIN (test code = 2.9 G/DL 2240) CALC A/G RATIO (test code = 1.4 RATIO 2234) BILIRUBIN, TOTAL (test code = 0.2 MG/DL 2206) ALKALINE PHOSPHATASE (test 119 U/L code = 2204) AST (test code = 2218) 16 U/L ALT (test code = 2219) 12 U/L HEMOGLOBIN [id number] 00:00:00 Test Item Value Reference Range Interpretation Comments HEMOGLOBIN A1c (test code = 71892) 5.9 % HEMOGLOBIN [id number] 00:00:00 Test Item Value Reference Range Interpretation Comments HEMOGLOBIN A1c (test code = 81351) 5.9 % HEMOGLOBIN [id number] 00:00:00 Test Item Value Reference Range Interpretation Comments HEMOGLOBIN A1c (test code = 01263) 5.9 % HEMOGLOBIN [id number] 00:00:00 Test Item Value Reference Range Interpretation Comments HEMOGLOBIN A1c (test code = 74215) 5.9 % HEMOGLOBIN [id number] 00:00:00 Test Item Value Reference Range Interpretation Comments HEMOGLOBIN A1c (test code = 87959) 5.9 % COMPREHENSIVE METABOLIC [id number] 00:00:00 Test Item Value Reference Range Interpretation Comments GLUCOSE (test code = 2217) 174 MG/DL BUN (test code = 2208) 15 MG/DL CREATININE (test code = 2214) 0.70 MG/DL eGFR AMER. (test code 108 ML/MIN/1.73 = 87176) eGFR NON- AMER. (test 93 ML/MIN/1.73 code = 04272) CALC BUN/CREAT (test code = 21 RATIO 2235) SODIUM (test code = 2231) 140 MEQ/L POTASSIUM (test code = 2228) 4.4 MEQ/L CHLORIDE (test code = 2215) 103 MEQ/L CARBON DIOXIDE (test code = 26 MEQ/L 2206) CALCIUM (test code = 2209) 9.0 MG/DL PROTEIN, TOTAL (test code = 7.1 G/DL 222) ALBUMIN (test code = 2201) 4.2 G/DL CALC GLOBULIN (test code = 2.9 G/DL 2240) CALC A/G RATIO (test code = 1.4 RATIO 2234) BILIRUBIN, TOTAL (test code = 0.2 MG/DL 2207) ALKALINE PHOSPHATASE (test 119 U/L code = 2204) AST (test code = 2218) 16 U/L ALT (test code = 2219) 12 U/L HEMOGLOBIN [id number] 00:00:00 Test Item Value Reference Range Interpretation Comments HEMOGLOBIN A1c (test code = 42650) 5.9 % HEMOGLOBIN [id number] 00:00:00 Test Item Value Reference Range Interpretation Comments HEMOGLOBIN A1c (test code = 84211) 5.9 % COMPREHENSIVE METABOLIC [id number] 00:00:00 Test Item Value Reference Range Interpretation Comments GLUCOSE (test code = 2217) 174 MG/DL BUN (test code = 2208) 15 MG/DL CREATININE (test code = 2214) 0.70 MG/DL eGFR AMER. (test code 108 ML/MIN/1.73 = 32719) eGFR NON- AMER. (test 93 ML/MIN/1.73 code = 42340) CALC BUN/CREAT (test code = 21 RATIO 2235) SODIUM (test code = 2231) 140 MEQ/L POTASSIUM (test code = 2228) 4.4 MEQ/L CHLORIDE (test code = 2215) 103 MEQ/L CARBON DIOXIDE (test code = 26 MEQ/L 220) CALCIUM (test code = 2209) 9.0 MG/DL PROTEIN, TOTAL (test code = 7.1 G/DL 2228) ALBUMIN (test code = 2201) 4.2 G/DL CALC GLOBULIN (test code = 2.9 G/DL 2240) CALC A/G RATIO (test code = 1.4 RATIO 2234) BILIRUBIN, TOTAL (test code = 0.2 MG/DL 2206) ALKALINE PHOSPHATASE (test 119 U/L code = 2204) AST (test code = 2218) 16 U/L ALT (test code = 2219) 12 U/L COMPREHENSIVE METABOLIC [id number] 00:00:00 Test Item Value Reference Range Interpretation Comments GLUCOSE (test code = 2217) 174 MG/DL BUN (test code = 2208) 15 MG/DL CREATININE (test code = 2214) 0.70 MG/DL eGFR AMER. (test code 108 ML/MIN/1.73 = 56300) eGFR NON- AMER. (test 93 ML/MIN/1.73 code = 27721) CALC BUN/CREAT (test code = 21 RATIO 2235) SODIUM (test code = 2231) 140 MEQ/L POTASSIUM (test code = 2228) 4.4 MEQ/L CHLORIDE (test code = 2215) 103 MEQ/L CARBON DIOXIDE (test code = 26 MEQ/L 2206) CALCIUM (test code = 2209) 9.0 MG/DL PROTEIN, TOTAL (test code = 7.1 G/DL 2228) ALBUMIN (test code = 2201) 4.2 G/DL CALC GLOBULIN (test code = 2.9 G/DL 2240) CALC A/G RATIO (test code = 1.4 RATIO 2234) BILIRUBIN, TOTAL (test code = 0.2 MG/DL 2206) ALKALINE PHOSPHATASE (test 119 U/L code = 2204) AST (test code = 2218) 16 U/L ALT (test code = 2219) 12 U/L HEMOGLOBIN [id number] 00:00:00 Test Item Value Reference Range Interpretation Comments HEMOGLOBIN A1c (test code = 37844) 5.9 % HEMOGLOBIN [id number] 00:00:00 Test Item Value Reference Range Interpretation Comments HEMOGLOBIN A1c (test code = 22537) 5.9 % HEMOGLOBIN [id number] 00:00:00 Test Item Value Reference Range Interpretation Comments HEMOGLOBIN A1c (test code = 41926) 5.9 % COMPREHENSIVE METABOLIC [id number] 00:00:00 Test Item Value Reference Range Interpretation Comments GLUCOSE (test code = 2217) 174 MG/DL BUN (test code = 2208) 15 MG/DL CREATININE (test code = 2214) 0.70 MG/DL eGFR AMER. (test code 108 ML/MIN/1.73 = 89011) eGFR NON- AMER. (test 93 ML/MIN/1.73 code = 31379) CALC BUN/CREAT (test code = 21 RATIO 2235) SODIUM (test code = 2231) 140 MEQ/L POTASSIUM (test code = 2228) 4.4 MEQ/L CHLORIDE (test code = 2215) 103 MEQ/L CARBON DIOXIDE (test code = 26 MEQ/L 2205) CALCIUM (test code = 2209) 9.0 MG/DL PROTEIN, TOTAL (test code = 7.1 G/DL 2228) ALBUMIN (test code = 2201) 4.2 G/DL CALC GLOBULIN (test code = 2.9 G/DL 2240) CALC A/G RATIO (test code = 1.4 RATIO 2234) BILIRUBIN, TOTAL (test code = 0.2 MG/DL 2206) ALKALINE PHOSPHATASE (test 119 U/L code = 2204) AST (test code = 2218) 16 U/L ALT (test code = 2219) 12 U/L COMPREHENSIVE METABOLIC [id number] 00:00:00 Test Item Value Reference Range Interpretation Comments GLUCOSE (test code = 2217) 174 MG/DL BUN (test code = 2208) 15 MG/DL CREATININE (test code = 2214) 0.70 MG/DL eGFR AMER. (test code 108 ML/MIN/1.73 = 26298) eGFR NON- AMER. (test 93 ML/MIN/1.73 code = 27011) CALC BUN/CREAT (test code = 21 RATIO 2235) SODIUM (test code = 2231) 140 MEQ/L POTASSIUM (test code = 2228) 4.4 MEQ/L CHLORIDE (test code = 2215) 103 MEQ/L CARBON DIOXIDE (test code = 26 MEQ/L 2205) CALCIUM (test code = 2209) 9.0 MG/DL PROTEIN, TOTAL (test code = 7.1 G/DL 2228) ALBUMIN (test code = 2201) 4.2 G/DL CALC GLOBULIN (test code = 2.9 G/DL 2239) CALC A/G RATIO (test code = 1.4 RATIO 2233) BILIRUBIN, TOTAL (test code = 0.2 MG/DL 2206) ALKALINE PHOSPHATASE (test 119 U/L code = 2204) AST (test code = 2218) 16 U/L ALT (test code = 2219) 12 U/L HEMOGLOBIN [id number] 00:00:00 Test Item Value Reference Range Interpretation Comments HEMOGLOBIN A1c (test code = 35697) 5.9 % HEMOGLOBIN [id number] 00:00:00 Test Item Value Reference Range Interpretation Comments HEMOGLOBIN A1c (test code = 87298) 5.9 % HEMOGLOBIN [id number] 00:00:00 Test Item Value Reference Range Interpretation Comments HEMOGLOBIN A1c (test code = 86513) 5.9 % COMPREHENSIVE METABOLIC [id number] 00:00:00 Test Item Value Reference Range Interpretation Comments GLUCOSE (test code = 2217) 174 MG/DL BUN (test code = 2208) 15 MG/DL CREATININE (test code = 2214) 0.70 MG/DL eGFR AMER. (test code 108 ML/MIN/1.73 = 83357) eGFR NON- AMER. (test 93 ML/MIN/1.73 code = 65557) CALC BUN/CREAT (test code = 21 RATIO 2235) SODIUM (test code = 2231) 140 MEQ/L POTASSIUM (test code = 2228) 4.4 MEQ/L CHLORIDE (test code = 2215) 103 MEQ/L CARBON DIOXIDE (test code = 26 MEQ/L 220) CALCIUM (test code = 2209) 9.0 MG/DL PROTEIN, TOTAL (test code = 7.1 G/DL 222) ALBUMIN (test code = 2201) 4.2 G/DL CALC GLOBULIN (test code = 2.9 G/DL 2240) CALC A/G RATIO (test code = 1.4 RATIO 2234) BILIRUBIN, TOTAL (test code = 0.2 MG/DL 2206) ALKALINE PHOSPHATASE (test 119 U/L code = 2204) AST (test code = 2218) 16 U/L ALT (test code = 2219) 12 U/L COMPREHENSIVE METABOLIC [id number] 00:00:00 Test Item Value Reference Range Interpretation Comments GLUCOSE (test code = 2217) 102 MG/DL BUN (test code = 2208) 15 MG/DL CREATININE (test code = 2214) 1.00 MG/DL eGFR AMER. (test code 70 ML/MIN/1.73 = 24204) eGFR NON- AMER. (test 61 ML/MIN/1.73 code = 04385) CALC BUN/CREAT (test code = 15 RATIO 2235) SODIUM (test code = 2231) 141 MEQ/L POTASSIUM (test code = 2228) 4.2 MEQ/L CHLORIDE (test code = 2215) 100 MEQ/L CARBON DIOXIDE (test code = 26 MEQ/L 6) CALCIUM (test code = 2209) 9.6 MG/DL PROTEIN, TOTAL (test code = 7.6 G/DL 2228) ALBUMIN (test code = 2201) 4.6 G/DL CALC GLOBULIN (test code = 3.0 G/DL 2240) CALC A/G RATIO (test code = 1.5 RATIO 2234) BILIRUBIN, TOTAL (test code = 0.2 MG/DL 2206) ALKALINE PHOSPHATASE (test 114 U/L code = 2204) AST (test code = 2218) 19 U/L ALT (test code = 2219) 13 U/L COMPREHENSIVE METABOLIC [id number] 00:00:00 Test Item Value Reference Range Interpretation Comments GLUCOSE (test code = 2217) 102 MG/DL BUN (test code = 2208) 15 MG/DL CREATININE (test code = 2214) 1.00 MG/DL eGFR AMER. (test code 70 ML/MIN/1.73 = 93091) eGFR NON- AMER. (test 61 ML/MIN/1.73 code = 92517) CALC BUN/CREAT (test code = 15 RATIO 2235) SODIUM (test code = 2231) 141 MEQ/L POTASSIUM (test code = 2228) 4.2 MEQ/L CHLORIDE (test code = 2215) 100 MEQ/L CARBON DIOXIDE (test code = 26 MEQ/L 220) CALCIUM (test code = 2209) 9.6 MG/DL PROTEIN, TOTAL (test code = 7.6 G/DL 2228) ALBUMIN (test code = 2201) 4.6 G/DL CALC GLOBULIN (test code = 3.0 G/DL 2240) CALC A/G RATIO (test code = 1.5 RATIO 2234) BILIRUBIN, TOTAL (test code = 0.2 MG/DL 2206) ALKALINE PHOSPHATASE (test 114 U/L code = 2204) AST (test code = 2218) 19 U/L ALT (test code = 2219) 13 U/L COMPREHENSIVE METABOLIC [id number] 00:00:00 Test Item Value Reference Range Interpretation Comments GLUCOSE (test code = 2217) 102 MG/DL BUN (test code = 2208) 15 MG/DL CREATININE (test code = 2214) 1.00 MG/DL eGFR AMER. (test code 70 ML/MIN/1.73 = 25950) eGFR NON- AMER. (test 61 ML/MIN/1.73 code = 36589) CALC BUN/CREAT (test code = 15 RATIO 2235) SODIUM (test code = 2231) 141 MEQ/L POTASSIUM (test code = 2228) 4.2 MEQ/L CHLORIDE (test code = 2215) 100 MEQ/L CARBON DIOXIDE (test code = 26 MEQ/L 2206) CALCIUM (test code = 2209) 9.6 MG/DL PROTEIN, TOTAL (test code = 7.6 G/DL 9) ALBUMIN (test code = 2201) 4.6 G/DL CALC GLOBULIN (test code = 3.0 G/DL 2240) CALC A/G RATIO (test code = 1.5 RATIO 2234) BILIRUBIN, TOTAL (test code = 0.2 MG/DL 2206) ALKALINE PHOSPHATASE (test 114 U/L code = 2204) AST (test code = 2218) 19 U/L ALT (test code = 2219) 13 U/L LIPID [id number] 00:00:00 Test Item Value Reference Range Interpretation Comments CHOLESTEROL (test code = 2210) 197 MG/DL TRIGLYCERIDES (test code = 2232) 151 MG/DL HDL CHOLESTEROL (test code = 2220) 55 MG/DL CALC LDL CHOL (test code = 2237) 112 MG/DL RISK RATIO LDL/HDL (test code = 2.03 RATIO 2238) LIPID [id number] 00:00:00 Test Item Value Reference Range Interpretation Comments CHOLESTEROL (test code = 2210) 197 MG/DL TRIGLYCERIDES (test code = 2232) 151 MG/DL HDL CHOLESTEROL (test code = 2220) 55 MG/DL CALC LDL CHOL (test code = 2237) 112 MG/DL RISK RATIO LDL/HDL (test code = 2.03 RATIO 2238) HEMOGLOBIN [id number] 00:00:00 Test Item Value Reference Range Interpretation Comments HEMOGLOBIN A1c (test code = 88728) 6.1 % HEMOGLOBIN [id number] 00:00:00 Test Item Value Reference Range Interpretation Comments HEMOGLOBIN A1c (test code = 18672) 6.1 % HEMOGLOBIN [id number] 00:00:00 Test Item Value Reference Range Interpretation Comments HEMOGLOBIN A1c (test code = 32131) 6.1 % LIPID [id number] 00:00:00 Test Item Value Reference Range Interpretation Comments CHOLESTEROL (test code = 2210) 197 MG/DL TRIGLYCERIDES (test code = 2232) 151 MG/DL HDL CHOLESTEROL (test code = 2220) 55 MG/DL CALC LDL CHOL (test code = 2237) 112 MG/DL RISK RATIO LDL/HDL (test code = 2.03 RATIO 2238) HEMOGLOBIN [id number] 00:00:00 Test Item Value Reference Range Interpretation Comments HEMOGLOBIN A1c (test code = 83306) 6.1 % HEMOGLOBIN [id number] 00:00:00 Test Item Value Reference Range Interpretation Comments HEMOGLOBIN A1c (test code = 03840) 6.1 % COMPREHENSIVE METABOLIC [id number] 00:00:00 Test Item Value Reference Range Interpretation Comments GLUCOSE (test code = 2217) 102 MG/DL BUN (test code = 2208) 15 MG/DL CREATININE (test code = 2214) 1.00 MG/DL eGFR AMER. (test code 70 ML/MIN/1.73 = 68349) eGFR NON- AMER. (test 61 ML/MIN/1.73 code = 45210) CALC BUN/CREAT (test code = 15 RATIO 2235) SODIUM (test code = 2231) 141 MEQ/L POTASSIUM (test code = 2228) 4.2 MEQ/L CHLORIDE (test code = 2215) 100 MEQ/L CARBON DIOXIDE (test code = 26 MEQ/L 2205) CALCIUM (test code = 2209) 9.6 MG/DL PROTEIN, TOTAL (test code = 7.6 G/DL 2228) ALBUMIN (test code = 220) 4.6 G/DL CALC GLOBULIN (test code = 3.0 G/DL 2239) CALC A/G RATIO (test code = 1.5 RATIO 4) BILIRUBIN, TOTAL (test code = 0.2 MG/DL 2206) ALKALINE PHOSPHATASE (test 114 U/L code = 2204) AST (test code = 2218) 19 U/L ALT (test code = 2219) 13 U/L LIPID [id number] 00:00:00 Test Item Value Reference Range Interpretation Comments CHOLESTEROL (test code = 2210) 197 MG/DL TRIGLYCERIDES (test code = 2232) 151 MG/DL HDL CHOLESTEROL (test code = 2220) 55 MG/DL CALC LDL CHOL (test code = 2237) 112 MG/DL RISK RATIO LDL/HDL (test code = 2.03 RATIO 2238) HEMOGLOBIN [id number] 00:00:00 Test Item Value Reference Range Interpretation Comments HEMOGLOBIN A1c (test code = 75698) 6.1 % HEMOGLOBIN [id number] 00:00:00 Test Item Value Reference Range Interpretation Comments HEMOGLOBIN A1c (test code = 81888) 6.1 % COMPREHENSIVE METABOLIC [id number] 00:00:00 Test Item Value Reference Range Interpretation Comments GLUCOSE (test code = 2217) 102 MG/DL BUN (test code = 2208) 15 MG/DL CREATININE (test code = 2214) 1.00 MG/DL eGFR AMER. (test code 70 ML/MIN/1.73 = 43858) eGFR NON- AMER. (test 61 ML/MIN/1.73 code = 01864) CALC BUN/CREAT (test code = 15 RATIO 2235) SODIUM (test code = 2231) 141 MEQ/L POTASSIUM (test code = 2228) 4.2 MEQ/L CHLORIDE (test code = 2215) 100 MEQ/L CARBON DIOXIDE (test code = 26 MEQ/L 2206) CALCIUM (test code = 2209) 9.6 MG/DL PROTEIN, TOTAL (test code = 7.6 G/DL 222) ALBUMIN (test code = 2201) 4.6 G/DL CALC GLOBULIN (test code = 3.0 G/DL 2240) CALC A/G RATIO (test code = 1.5 RATIO 2234) BILIRUBIN, TOTAL (test code = 0.2 MG/DL 2206) ALKALINE PHOSPHATASE (test 114 U/L code = 2204) AST (test code = 2218) 19 U/L ALT (test code = 2219) 13 U/L COMPREHENSIVE METABOLIC [id number] 00:00:00 Test Item Value Reference Range Interpretation Comments GLUCOSE (test code = 2217) 102 MG/DL BUN (test code = 2208) 15 MG/DL CREATININE (test code = 2214) 1.00 MG/DL eGFR AMER. (test code 70 ML/MIN/1.73 = 07182) eGFR NON- AMER. (test 61 ML/MIN/1.73 code = 37028) CALC BUN/CREAT (test code = 15 RATIO 2235) SODIUM (test code = 2231) 141 MEQ/L POTASSIUM (test code = 2228) 4.2 MEQ/L CHLORIDE (test code = 2215) 100 MEQ/L CARBON DIOXIDE (test code = 26 MEQ/L 2206) CALCIUM (test code = 2209) 9.6 MG/DL PROTEIN, TOTAL (test code = 7.6 G/DL 2228) ALBUMIN (test code = 2201) 4.6 G/DL CALC GLOBULIN (test code = 3.0 G/DL 2240) CALC A/G RATIO (test code = 1.5 RATIO 2234) BILIRUBIN, TOTAL (test code = 0.2 MG/DL 2206) ALKALINE PHOSPHATASE (test 114 U/L code = 2204) AST (test code = 2218) 19 U/L ALT (test code = 2219) 13 U/L LIPID [id number] 00:00:00 Test Item Value Reference Range Interpretation Comments CHOLESTEROL (test code = 2210) 197 MG/DL TRIGLYCERIDES (test code = 2232) 151 MG/DL HDL CHOLESTEROL (test code = 2220) 55 MG/DL CALC LDL CHOL (test code = 2237) 112 MG/DL RISK RATIO LDL/HDL (test code = 2.03 RATIO 2238) LIPID [id number] 00:00:00 Test Item Value Reference Range Interpretation Comments CHOLESTEROL (test code = 2210) 197 MG/DL TRIGLYCERIDES (test code = 2232) 151 MG/DL HDL CHOLESTEROL (test code = 2220) 55 MG/DL CALC LDL CHOL (test code = 2237) 112 MG/DL RISK RATIO LDL/HDL (test code = 2.03 RATIO 2238) HEMOGLOBIN [id number] 00:00:00 Test Item Value Reference Range Interpretation Comments HEMOGLOBIN A1c (test code = 99893) 6.1 % HEMOGLOBIN [id number] 00:00:00 Test Item Value Reference Range Interpretation Comments HEMOGLOBIN A1c (test code = 57197) 6.1 % HEMOGLOBIN [id number] 00:00:00 Test Item Value Reference Range Interpretation Comments HEMOGLOBIN A1c (test code = 11294) 6.1 % COMPREHENSIVE METABOLIC [id number] 00:00:00 Test Item Value Reference Range Interpretation Comments GLUCOSE (test code = 2217) 102 MG/DL BUN (test code = 2208) 15 MG/DL CREATININE (test code = 2214) 1.00 MG/DL eGFR AMER. (test code 70 ML/MIN/1.73 = 12589) eGFR NON- AMER. (test 61 ML/MIN/1.73 code = 49518) CALC BUN/CREAT (test code = 15 RATIO 2235) SODIUM (test code = 2231) 141 MEQ/L POTASSIUM (test code = 2228) 4.2 MEQ/L CHLORIDE (test code = 2215) 100 MEQ/L CARBON DIOXIDE (test code = 26 MEQ/L 2205) CALCIUM (test code = 2209) 9.6 MG/DL PROTEIN, TOTAL (test code = 7.6 G/DL 2228) ALBUMIN (test code = 220) 4.6 G/DL CALC GLOBULIN (test code = 3.0 G/DL 2240) CALC A/G RATIO (test code = 1.5 RATIO 2234) BILIRUBIN, TOTAL (test code = 0.2 MG/DL 2207) ALKALINE PHOSPHATASE (test 114 U/L code = 2204) AST (test code = 2218) 19 U/L ALT (test code = 2219) 13 U/L COMPREHENSIVE METABOLIC [id number] 00:00:00 Test Item Value Reference Range Interpretation Comments GLUCOSE (test code = 2217) 102 MG/DL BUN (test code = 2208) 15 MG/DL CREATININE (test code = 2214) 1.00 MG/DL eGFR AMER. (test code 70 ML/MIN/1.73 = 71620) eGFR NON- AMER. (test 61 ML/MIN/1.73 code = 75453) CALC BUN/CREAT (test code = 15 RATIO 2235) SODIUM (test code = 2231) 141 MEQ/L POTASSIUM (test code = 2228) 4.2 MEQ/L CHLORIDE (test code = 2215) 100 MEQ/L CARBON DIOXIDE (test code = 26 MEQ/L 2206) CALCIUM (test code = 2209) 9.6 MG/DL PROTEIN, TOTAL (test code = 7.6 G/DL 222) ALBUMIN (test code = 2201) 4.6 G/DL CALC GLOBULIN (test code = 3.0 G/DL 2240) CALC A/G RATIO (test code = 1.5 RATIO 2234) BILIRUBIN, TOTAL (test code = 0.2 MG/DL 2207) ALKALINE PHOSPHATASE (test 114 U/L code = 2204) AST (test code = 2218) 19 U/L ALT (test code = 2219) 13 U/L LIPID [id number] 00:00:00 Test Item Value Reference Range Interpretation Comments CHOLESTEROL (test code = 2210) 197 MG/DL TRIGLYCERIDES (test code = 2232) 151 MG/DL HDL CHOLESTEROL (test code = 2220) 55 MG/DL CALC LDL CHOL (test code = 2237) 112 MG/DL RISK RATIO LDL/HDL (test code = 2.03 RATIO 2238) LIPID [id number] 00:00:00 Test Item Value Reference Range Interpretation Comments CHOLESTEROL (test code = 2210) 197 MG/DL TRIGLYCERIDES (test code = 2232) 151 MG/DL HDL CHOLESTEROL (test code = 2220) 55 MG/DL CALC LDL CHOL (test code = 2237) 112 MG/DL RISK RATIO LDL/HDL (test code = 2.03 RATIO 8) HEMOGLOBIN [id number] 00:00:00 Test Item Value Reference Range Interpretation Comments HEMOGLOBIN A1c (test code = 36593) 6.1 % HEMOGLOBIN [id number] 00:00:00 Test Item Value Reference Range Interpretation Comments HEMOGLOBIN A1c (test code = 35938) 6.1 % HEMOGLOBIN [id number] 00:00:00 Test Item Value Reference Range Interpretation Comments HEMOGLOBIN A1c (test code = 04604) 6.1 % CULTURE, [id number] 00:00:00 Test Item Value Reference Range Interpretation Comments CULTURE, URINE (test SPECIMEN NUMBER: code = 57482) [id number] CULTURE, [id number] 00:00:00 Test Item Value Reference Range Interpretation Comments CULTURE, URINE (test SPECIMEN NUMBER: code = 15607) [id number] VAGINAL PATHOGENS DNA [id number] 00:00:00 Test Item Value Reference Range Interpretation Comments SIENA SPECIES (test code = 32912) NEGATIVE G. VAGINALIS (test code = 98118) NEGATIVE T. VAGINALIS (test code = 58084) NEGATIVE VAGINAL PATHOGENS DNA [id number] 00:00:00 Test Item Value Reference Range Interpretation Comments SIENA SPECIES (test code = 65626) NEGATIVE G. VAGINALIS (test code = 32096) NEGATIVE T. VAGINALIS (test code = 71676) NEGATIVE VAGINAL PATHOGENS DNA [id number] 00:00:00 Test Item Value Reference Range Interpretation Comments SIENA SPECIES (test code = 08255) NEGATIVE G. VAGINALIS (test code = 00069) NEGATIVE T. VAGINALIS (test code = 26185) NEGATIVE CULTURE, [id number] 00:00:00 Test Item Value Reference Range Interpretation Comments CULTURE, URINE (test SPECIMEN NUMBER: code = 27315) [id number] VAGINAL PATHOGENS DNA [id number] 00:00:00 Test Item Value Reference Range Interpretation Comments SIENA SPECIES (test code = 71454) NEGATIVE G. VAGINALIS (test code = 50198) NEGATIVE T. VAGINALIS (test code = 71899) NEGATIVE CULTURE, [id number] 00:00:00 Test Item Value Reference Range Interpretation Comments CULTURE, URINE (test SPECIMEN NUMBER: code = 78346) [id number] CULTURE, [id number] 00:00:00 Test Item Value Reference Range Interpretation Comments CULTURE, URINE (test SPECIMEN NUMBER: code = 38889) [id number] VAGINAL PATHOGENS DNA [id number] 00:00:00 Test Item Value Reference Range Interpretation Comments SIENA SPECIES (test code = 23942) NEGATIVE G. VAGINALIS (test code = 71790) NEGATIVE T. VAGINALIS (test code = 30525) NEGATIVE VAGINAL PATHOGENS DNA [id number] 00:00:00 Test Item Value Reference Range Interpretation Comments SIENA SPECIES (test code = 88233) NEGATIVE G. VAGINALIS (test code = 50101) NEGATIVE T. VAGINALIS (test code = 62726) NEGATIVE CULTURE, [id number] 00:00:00 Test Item Value Reference Range Interpretation Comments CULTURE, URINE (test SPECIMEN NUMBER: code = 90536) [id number] CULTURE, [id number] 00:00:00 Test Item Value Reference Range Interpretation Comments CULTURE, URINE (test SPECIMEN NUMBER: code = 14670) [id number] VAGINAL PATHOGENS DNA [id number] 00:00:00 Test Item Value Reference Range Interpretation Comments SIENA SPECIES (test code = 62589) NEGATIVE G. VAGINALIS (test code = 82116) NEGATIVE T. VAGINALIS (test code = 21641) NEGATIVE VAGINAL PATHOGENS DNA [id number] 00:00:00 Test Item Value Reference Range Interpretation Comments SIENA SPECIES (test code = 84509) NEGATIVE G. VAGINALIS (test code = 05104) NEGATIVE T. VAGINALIS (test code = 05073) NEGATIVE CULTURE, [id number] 00:00:00 Test Item Value Reference Range Interpretation Comments CULTURE, URINE (test SPECIMEN NUMBER: code = 13893) [id number] BASIC METABOLIC [id number] 00:00:00 Test Item Value Reference Range Interpretation Comments GLUCOSE (test code = 85 mg/dL 2345-7) UREA NITROGEN (BUN) 13 mg/dL (test code = 3094-0) CREATININE (test code = 0.55 mg/dL 2160-0) eGFR NON-AFR. PANAMANIAN 102 mL/min/1.73m2 (test code = 33255-9) eGFR 118 mL/min/1.73m2 (test code = 96518-3) BUN/CREATININE RATIO NOT APPLICABLE (calc) (test code = 3097-3) SODIUM (test code = 138 mmol/L 2951-2) POTASSIUM (test code = 4.3 mmol/L 2823-3) CHLORIDE (test code = 103 mmol/L 2075-0) CARBON DIOXIDE (test 28 mmol/L code = 2027-9) CALCIUM (test code = 9.4 mg/dL 51108-0) BASIC METABOLIC [id number] 00:00:00 Test Item Value Reference Range Interpretation Comments GLUCOSE (test code = 85 mg/dL 2345-7) UREA NITROGEN (BUN) 13 mg/dL (test code = 3094-0) CREATININE (test code = 0.55 mg/dL 2160-0) eGFR NON-AFR. PANAMANIAN 102 mL/min/1.73m2 (test code = 56448-5) eGFR 118 mL/min/1.73m2 (test code = 78648-3) BUN/CREATININE RATIO NOT APPLICABLE (calc) (test code = 3097-3) SODIUM (test code = 138 mmol/L 2951-2) POTASSIUM (test code = 4.3 mmol/L 2823-3) CHLORIDE (test code = 103 mmol/L 2075-0) CARBON DIOXIDE (test 28 mmol/L code = 2027-9) CALCIUM (test code = 9.4 mg/dL 54841-5) BASIC METABOLIC [id number] 00:00:00 Test Item Value Reference Range Interpretation Comments GLUCOSE (test code = 85 mg/dL 2345-7) UREA NITROGEN (BUN) 13 mg/dL (test code = 3094-0) CREATININE (test code = 0.55 mg/dL 2160-0) eGFR NON-AFR. PANAMANIAN 102 mL/min/1.73m2 (test code = 58921-0) eGFR 118 mL/min/1.73m2 (test code = 34016-4) BUN/CREATININE RATIO NOT APPLICABLE (calc) (test code = 3097-3) SODIUM (test code = 138 mmol/L 2951-2) POTASSIUM (test code = 4.3 mmol/L 2823-3) CHLORIDE (test code = 103 mmol/L 2075-0) CARBON DIOXIDE (test 28 mmol/L code = 2027-9) CALCIUM (test code = 9.4 mg/dL 54916-2) BASIC METABOLIC [id number] 00:00:00 Test Item Value Reference Range Interpretation Comments GLUCOSE (test code = 85 mg/dL 2345-7) UREA NITROGEN (BUN) 13 mg/dL (test code = 3094-0) CREATININE (test code = 0.55 mg/dL 2160-0) eGFR NON-AFR. PANAMANIAN 102 mL/min/1.73m2 (test code = 06457-0) eGFR 118 mL/min/1.73m2 (test code = 56905-4) BUN/CREATININE RATIO NOT APPLICABLE (calc) (test code = 3097-3) SODIUM (test code = 138 mmol/L 2951-2) POTASSIUM (test code = 4.3 mmol/L 2823-3) CHLORIDE (test code = 103 mmol/L 2075-0) CARBON DIOXIDE (test 28 mmol/L code = 8-9) CALCIUM (test code = 9.4 mg/dL 77047-5) BASIC METABOLIC [id number] 00:00:00 Test Item Value Reference Range Interpretation Comments GLUCOSE (test code = 85 mg/dL 2345-7) UREA NITROGEN (BUN) 13 mg/dL (test code = 3094-0) CREATININE (test code = 0.55 mg/dL 2160-0) eGFR NON-AFR. PANAMANIAN 102 mL/min/1.73m2 (test code = 83797-7) eGFR 118 mL/min/1.73m2 (test code = 09256-1) BUN/CREATININE RATIO NOT APPLICABLE (calc) (test code = 3097-3) SODIUM (test code = 138 mmol/L 2951-2) POTASSIUM (test code = 4.3 mmol/L 2823-3) CHLORIDE (test code = 103 mmol/L 2075-0) CARBON DIOXIDE (test 28 mmol/L code = 2028-9) CALCIUM (test code = 9.4 mg/dL 14085-7) CBC W/AUTO [id number] 00:00:00 Test Item Value Reference Range Interpretation Comments WBC (test code = 1001) 7.9 K/UL RBC (test code = 1002) 4.48 M/UL HEMOGLOBIN (test code = 1003) 13.0 G/DL HEMATOCRIT (test code = 1004) 38.2 % MCV (test code = 1005) 85.3 fL MCH (test code = 1006) 29.0 PG MCHC (test code = 1007) 34.0 G/DL RDW (test code = 1038) 13.6 % NEUTROPHILS (test code = 1008) 67.1 % LYMPHOCYTES (test code = 1010) 26.4 % MONOCYTES (test code = 1011) 4.7 % EOSINOPHILS (test code = 1012) 1.4 % BASOPHILS (test code = 1013) 0.4 % PLATELET COUNT (test code = 1015) 268 K/UL CBC W/AUTO [id number] 00:00:00 Test Item Value Reference Range Interpretation Comments WBC (test code = 1001) 7.9 K/UL RBC (test code = 1002) 4.48 M/UL HEMOGLOBIN (test code = 1003) 13.0 G/DL HEMATOCRIT (test code = 1004) 38.2 % MCV (test code = 1005) 85.3 fL MCH (test code = 1006) 29.0 PG MCHC (test code = 1007) 34.0 G/DL RDW (test code = 1038) 13.6 % NEUTROPHILS (test code = 1008) 67.1 % LYMPHOCYTES (test code = 1010) 26.4 % MONOCYTES (test code = 1011) 4.7 % EOSINOPHILS (test code = 1012) 1.4 % BASOPHILS (test code = 1013) 0.4 % PLATELET COUNT (test code = 1015) 268 K/UL CBC W/AUTO [id number] 00:00:00 Test Item Value Reference Range Interpretation Comments WBC (test code = 1001) 7.9 K/UL RBC (test code = 1002) 4.48 M/UL HEMOGLOBIN (test code = 1003) 13.0 G/DL HEMATOCRIT (test code = 1004) 38.2 % MCV (test code = 1005) 85.3 fL MCH (test code = 1006) 29.0 PG MCHC (test code = 1007) 34.0 G/DL RDW (test code = 1038) 13.6 % NEUTROPHILS (test code = 1008) 67.1 % LYMPHOCYTES (test code = 1010) 26.4 % MONOCYTES (test code = 1011) 4.7 % EOSINOPHILS (test code = 1012) 1.4 % BASOPHILS (test code = 1013) 0.4 % PLATELET COUNT (test code = 1015) 268 K/UL CBC W/AUTO [id number] 00:00:00 Test Item Value Reference Range Interpretation Comments WBC (test code = 1001) 7.9 K/UL RBC (test code = 1002) 4.48 M/UL HEMOGLOBIN (test code = 1003) 13.0 G/DL HEMATOCRIT (test code = 1004) 38.2 % MCV (test code = 1005) 85.3 fL MCH (test code = 1006) 29.0 PG MCHC (test code = 1007) 34.0 G/DL RDW (test code = 1038) 13.6 % NEUTROPHILS (test code = 1008) 67.1 % LYMPHOCYTES (test code = 1010) 26.4 % MONOCYTES (test code = 1011) 4.7 % EOSINOPHILS (test code = 1012) 1.4 % BASOPHILS (test code = 1013) 0.4 % PLATELET COUNT (test code = 1015) 268 K/UL COMPREHENSIVE METABOLIC [id number] 00:00:00 Test Item Value Reference Range Interpretation Comments GLUCOSE (test code = 2217) 127 MG/DL BUN (test code = 2208) 13 MG/DL CREATININE (test code = 2214) 0.65 MG/DL eGFR AMER. (test code 112 ML/MIN/1.73 = 91956) eGFR NON- AMER. (test 96 ML/MIN/1.73 code = 21203) CALC BUN/CREAT (test code = 20 RATIO 2235) SODIUM (test code = 2231) 139 MEQ/L POTASSIUM (test code = 2228) 4.3 MEQ/L CHLORIDE (test code = 2215) 100 MEQ/L CARBON DIOXIDE (test code = 26 MEQ/L 2206) CALCIUM (test code = 2209) 9.3 MG/DL PROTEIN, TOTAL (test code = 7.0 G/DL 2228) ALBUMIN (test code = 2201) 4.3 G/DL CALC GLOBULIN (test code = 2.7 G/DL 2240) CALC A/G RATIO (test code = 1.6 RATIO 2234) BILIRUBIN, TOTAL (test code = 0.3 MG/DL 2206) ALKALINE PHOSPHATASE (test 101 U/L code = 2204) AST (test code = 2218) 20 U/L ALT (test code = 2219) 14 U/L COMPREHENSIVE METABOLIC [id number] 00:00:00 Test Item Value Reference Range Interpretation Comments GLUCOSE (test code = 2217) 127 MG/DL BUN (test code = 2208) 13 MG/DL CREATININE (test code = 2214) 0.65 MG/DL eGFR AMER. (test code 112 ML/MIN/1.73 = 02412) eGFR NON- AMER. (test 96 ML/MIN/1.73 code = 47940) CALC BUN/CREAT (test code = 20 RATIO 2235) SODIUM (test code = 2231) 139 MEQ/L POTASSIUM (test code = 2228) 4.3 MEQ/L CHLORIDE (test code = 2215) 100 MEQ/L CARBON DIOXIDE (test code = 26 MEQ/L 220) CALCIUM (test code = 2209) 9.3 MG/DL PROTEIN, TOTAL (test code = 7.0 G/DL 2228) ALBUMIN (test code = 2201) 4.3 G/DL CALC GLOBULIN (test code = 2.7 G/DL 2240) CALC A/G RATIO (test code = 1.6 RATIO 2234) BILIRUBIN, TOTAL (test code = 0.3 MG/DL 220) ALKALINE PHOSPHATASE (test 101 U/L code = 2204) AST (test code = 2218) 20 U/L ALT (test code = 2219) 14 U/L LIPID [id number] 00:00:00 Test Item Value Reference Range Interpretation Comments CHOLESTEROL (test code = 2210) 187 MG/DL TRIGLYCERIDES (test code = 2232) 137 MG/DL HDL CHOLESTEROL (test code = 2220) 52 MG/DL CALC LDL CHOL (test code = 2237) 108 MG/DL RISK RATIO LDL/HDL (test code = 2.07 RATIO 2238) LIPID [id number] 00:00:00 Test Item Value Reference Range Interpretation Comments CHOLESTEROL (test code = 2210) 187 MG/DL TRIGLYCERIDES (test code = 2232) 137 MG/DL HDL CHOLESTEROL (test code = 2220) 52 MG/DL CALC LDL CHOL (test code = 2237) 108 MG/DL RISK RATIO LDL/HDL (test code = 2.07 RATIO 2238) COMPREHENSIVE METABOLIC [id number] 00:00:00 Test Item Value Reference Range Interpretation Comments GLUCOSE (test code = 2217) 127 MG/DL BUN (test code = 2208) 13 MG/DL CREATININE (test code = 2214) 0.65 MG/DL eGFR AMER. (test code 112 ML/MIN/1.73 = 02854) eGFR NON- AMER. (test 96 ML/MIN/1.73 code = 25129) CALC BUN/CREAT (test code = 20 RATIO 2235) SODIUM (test code = 2231) 139 MEQ/L POTASSIUM (test code = 2228) 4.3 MEQ/L CHLORIDE (test code = 2215) 100 MEQ/L CARBON DIOXIDE (test code = 26 MEQ/L 2205) CALCIUM (test code = 2209) 9.3 MG/DL PROTEIN, TOTAL (test code = 7.0 G/DL 2228) ALBUMIN (test code = 2201) 4.3 G/DL CALC GLOBULIN (test code = 2.7 G/DL 2239) CALC A/G RATIO (test code = 1.6 RATIO 2233) BILIRUBIN, TOTAL (test code = 0.3 MG/DL 2206) ALKALINE PHOSPHATASE (test 101 U/L code = 2204) AST (test code = 2218) 20 U/L ALT (test code = 2219) 14 U/L HEMOGLOBIN [id number] 00:00:00 Test Item Value Reference Range Interpretation Comments HEMOGLOBIN A1c (test code = 44700) 6.1 % HEMOGLOBIN [id number] 00:00:00 Test Item Value Reference Range Interpretation Comments HEMOGLOBIN A1c (test code = 99397) 6.1 % HEMOGLOBIN [id number] 00:00:00 Test Item Value Reference Range Interpretation Comments HEMOGLOBIN A1c (test code = 56255) 6.1 % HEPATITIS C [id number] 00:00:00 Test Item Value Reference Range Interpretation Comments HEPATITIS C ANTIBODY (test code NON-REACTIVE = 4675) HEPATITIS C [id number] 00:00:00 Test Item Value Reference Range Interpretation Comments HEPATITIS C ANTIBODY (test code NON-REACTIVE = 4675) [id number] 00:00:00 Test Item Value Reference Range Interpretation Comments FERRITIN (test code = 2075) 28 NG/ML [id number] 00:00:00 Test Item Value Reference Range Interpretation Comments FERRITIN (test code = 2075) 28 NG/ML IRON BINDING CAPACITY AND IRON AND % [id number] 00:00:00 Test Item Value Reference Range Interpretation Comments IRON, SERUM (test code = 2) 55 UG/DL UNSATURATED IBC (test code = 68930) 324 UG/DL CALC TOTAL IBC (test code = 2076) 379 UG/DL CALC % IRON SAT (test code = 2078) 15 % IRON BINDING CAPACITY AND IRON AND % [id number] 00:00:00 Test Item Value Reference Range Interpretation Comments IRON, SERUM (test code = 2) 55 UG/DL UNSATURATED IBC (test code = 87982) 324 UG/DL CALC TOTAL IBC (test code = 7) 379 UG/DL CALC % IRON SAT (test code = 2078) 15 % [id number] 00:00:00 Test Item Value Reference Range Interpretation Comments TRANSFERRIN (test code = 4936) 312 MG/DL [id number] 00:00:00 Test Item Value Reference Range Interpretation Comments TRANSFERRIN (test code = 4936) 312 MG/DL VITAMIN B 12 AND FOLIC [id number] 00:00:00 Test Item Value Reference Range Interpretation Comments VITAMIN B-12 (test code = 2840) 425 PG/ML FOLIC ACID (test code = 2695) 11.3 UG/L VITAMIN B 12 AND FOLIC [id number] 00:00:00 Test Item Value Reference Range Interpretation Comments VITAMIN B-12 (test code = 2840) 425 PG/ML FOLIC ACID (test code = 2695) 11.3 UG/L LIPID [id number] 00:00:00 Test Item Value Reference Range Interpretation Comments CHOLESTEROL (test code = 2210) 187 MG/DL TRIGLYCERIDES (test code = 2232) 137 MG/DL HDL CHOLESTEROL (test code = 2220) 52 MG/DL CALC LDL CHOL (test code = 2237) 108 MG/DL RISK RATIO LDL/HDL (test code = 2.07 RATIO 2238) HEMOGLOBIN [id number] 00:00:00 Test Item Value Reference Range Interpretation Comments HEMOGLOBIN A1c (test code = 83321) 6.1 % HEMOGLOBIN [id number] 00:00:00 Test Item Value Reference Range Interpretation Comments HEMOGLOBIN A1c (test code = 90672) 6.1 % HEPATITIS C [id number] 00:00:00 Test Item Value Reference Range Interpretation Comments HEPATITIS C ANTIBODY (test code NON-REACTIVE = 4675) [id number] 00:00:00 Test Item Value Reference Range Interpretation Comments FERRITIN (test code = 2075) 28 NG/ML IRON BINDING CAPACITY AND IRON AND % [id number] 00:00:00 Test Item Value Reference Range Interpretation Comments IRON, SERUM (test code = 2222) 55 UG/DL UNSATURATED IBC (test code = 70509) 324 UG/DL CALC TOTAL IBC (test code = 2077) 379 UG/DL CALC % IRON SAT (test code = 2079) 15 % [id number] 00:00:00 Test Item Value Reference Range Interpretation Comments TRANSFERRIN (test code = 4936) 312 MG/DL VITAMIN B 12 AND FOLIC [id number] 00:00:00 Test Item Value Reference Range Interpretation Comments VITAMIN B-12 (test code = 2840) 425 PG/ML FOLIC ACID (test code = 2695) 11.3 UG/L CBC W/AUTO [id number] 00:00:00 Test Item Value Reference Range Interpretation Comments WBC (test code = 1001) 7.9 K/UL RBC (test code = 1002) 4.48 M/UL HEMOGLOBIN (test code = 1003) 13.0 G/DL HEMATOCRIT (test code = 1004) 38.2 % MCV (test code = 1005) 85.3 fL MCH (test code = 1006) 29.0 PG MCHC (test code = 1007) 34.0 G/DL RDW (test code = 1038) 13.6 % NEUTROPHILS (test code = 1008) 67.1 % LYMPHOCYTES (test code = 1010) 26.4 % MONOCYTES (test code = 1011) 4.7 % EOSINOPHILS (test code = 1012) 1.4 % BASOPHILS (test code = 1013) 0.4 % PLATELET COUNT (test code = 1015) 268 K/UL CBC W/AUTO [id number] 00:00:00 Test Item Value Reference Range Interpretation Comments WBC (test code = 1001) 7.9 K/UL RBC (test code = 1002) 4.48 M/UL HEMOGLOBIN (test code = 1003) 13.0 G/DL HEMATOCRIT (test code = 1004) 38.2 % MCV (test code = 1005) 85.3 fL MCH (test code = 1006) 29.0 PG MCHC (test code = 1007) 34.0 G/DL RDW (test code = 1038) 13.6 % NEUTROPHILS (test code = 1008) 67.1 % LYMPHOCYTES (test code = 1010) 26.4 % MONOCYTES (test code = 1011) 4.7 % EOSINOPHILS (test code = 1012) 1.4 % BASOPHILS (test code = 1013) 0.4 % PLATELET COUNT (test code = 1015) 268 K/UL COMPREHENSIVE METABOLIC [id number] 00:00:00 Test Item Value Reference Range Interpretation Comments GLUCOSE (test code = 2217) 127 MG/DL BUN (test code = 2208) 13 MG/DL CREATININE (test code = 2214) 0.65 MG/DL eGFR AMER. (test code 112 ML/MIN/1.73 = 44098) eGFR NON- AMER. (test 96 ML/MIN/1.73 code = 23429) CALC BUN/CREAT (test code = 20 RATIO 2235) SODIUM (test code = 2231) 139 MEQ/L POTASSIUM (test code = 2228) 4.3 MEQ/L CHLORIDE (test code = 2215) 100 MEQ/L CARBON DIOXIDE (test code = 26 MEQ/L 2205) CALCIUM (test code = 2209) 9.3 MG/DL PROTEIN, TOTAL (test code = 7.0 G/DL 2228) ALBUMIN (test code = 2201) 4.3 G/DL CALC GLOBULIN (test code = 2.7 G/DL 2240) CALC A/G RATIO (test code = 1.6 RATIO 2234) BILIRUBIN, TOTAL (test code = 0.3 MG/DL 2206) ALKALINE PHOSPHATASE (test 101 U/L code = 2204) AST (test code = 2218) 20 U/L ALT (test code = 2219) 14 U/L LIPID [id number] 00:00:00 Test Item Value Reference Range Interpretation Comments CHOLESTEROL (test code = 2210) 187 MG/DL TRIGLYCERIDES (test code = 2232) 137 MG/DL HDL CHOLESTEROL (test code = 2220) 52 MG/DL CALC LDL CHOL (test code = 2237) 108 MG/DL RISK RATIO LDL/HDL (test code = 2.07 RATIO 2238) HEMOGLOBIN [id number] 00:00:00 Test Item Value Reference Range Interpretation Comments HEMOGLOBIN A1c (test code = 84644) 6.1 % HEMOGLOBIN [id number] 00:00:00 Test Item Value Reference Range Interpretation Comments HEMOGLOBIN A1c (test code = 33990) 6.1 % HEPATITIS C [id number] 00:00:00 Test Item Value Reference Range Interpretation Comments HEPATITIS C ANTIBODY (test code NON-REACTIVE = 4675) [id number] 00:00:00 Test Item Value Reference Range Interpretation Comments FERRITIN (test code = 2075) 28 NG/ML IRON BINDING CAPACITY AND IRON AND % [id number] 00:00:00 Test Item Value Reference Range Interpretation Comments IRON, SERUM (test code = 2222) 55 UG/DL UNSATURATED IBC (test code = 91822) 324 UG/DL CALC TOTAL IBC (test code = 2077) 379 UG/DL CALC % IRON SAT (test code = 2079) 15 % [id number] 00:00:00 Test Item Value Reference Range Interpretation Comments TRANSFERRIN (test code = 4936) 312 MG/DL VITAMIN B 12 AND FOLIC [id number] 00:00:00 Test Item Value Reference Range Interpretation Comments VITAMIN B-12 (test code = 2840) 425 PG/ML FOLIC ACID (test code = 2695) 11.3 UG/L CBC W/AUTO [id number] 00:00:00 Test Item Value Reference Range Interpretation Comments WBC (test code = 1001) 7.9 K/UL RBC (test code = 1002) 4.48 M/UL HEMOGLOBIN (test code = 1003) 13.0 G/DL HEMATOCRIT (test code = 1004) 38.2 % MCV (test code = 1005) 85.3 fL MCH (test code = 1006) 29.0 PG MCHC (test code = 1007) 34.0 G/DL RDW (test code = 1038) 13.6 % NEUTROPHILS (test code = 1008) 67.1 % LYMPHOCYTES (test code = 1010) 26.4 % MONOCYTES (test code = 1011) 4.7 % EOSINOPHILS (test code = 1012) 1.4 % BASOPHILS (test code = 1013) 0.4 % PLATELET COUNT (test code = 1015) 268 K/UL CBC W/AUTO [id number] 00:00:00 Test Item Value Reference Range Interpretation Comments WBC (test code = 1001) 7.9 K/UL RBC (test code = 1002) 4.48 M/UL HEMOGLOBIN (test code = 1003) 13.0 G/DL HEMATOCRIT (test code = 1004) 38.2 % MCV (test code = 1005) 85.3 fL MCH (test code = 1006) 29.0 PG MCHC (test code = 1007) 34.0 G/DL RDW (test code = 1038) 13.6 % NEUTROPHILS (test code = 1008) 67.1 % LYMPHOCYTES (test code = 1010) 26.4 % MONOCYTES (test code = 1011) 4.7 % EOSINOPHILS (test code = 1012) 1.4 % BASOPHILS (test code = 1013) 0.4 % PLATELET COUNT (test code = 1015) 268 K/UL CBC W/AUTO [id number] 00:00:00 Test Item Value Reference Range Interpretation Comments WBC (test code = 1001) 7.9 K/UL RBC (test code = 1002) 4.48 M/UL HEMOGLOBIN (test code = 1003) 13.0 G/DL HEMATOCRIT (test code = 1004) 38.2 % MCV (test code = 1005) 85.3 fL MCH (test code = 1006) 29.0 PG MCHC (test code = 1007) 34.0 G/DL RDW (test code = 1038) 13.6 % NEUTROPHILS (test code = 1008) 67.1 % LYMPHOCYTES (test code = 1010) 26.4 % MONOCYTES (test code = 1011) 4.7 % EOSINOPHILS (test code = 1012) 1.4 % BASOPHILS (test code = 1013) 0.4 % PLATELET COUNT (test code = 1015) 268 K/UL COMPREHENSIVE METABOLIC [id number] 00:00:00 Test Item Value Reference Range Interpretation Comments GLUCOSE (test code = 2217) 127 MG/DL BUN (test code = 2208) 13 MG/DL CREATININE (test code = 2214) 0.65 MG/DL eGFR AMER. (test code 112 ML/MIN/1.73 = 94696) eGFR NON- AMER. (test 96 ML/MIN/1.73 code = 52202) CALC BUN/CREAT (test code = 20 RATIO 2235) SODIUM (test code = 2231) 139 MEQ/L POTASSIUM (test code = 2228) 4.3 MEQ/L CHLORIDE (test code = 2215) 100 MEQ/L CARBON DIOXIDE (test code = 26 MEQ/L 220) CALCIUM (test code = 2209) 9.3 MG/DL PROTEIN, TOTAL (test code = 7.0 G/DL 222) ALBUMIN (test code = 2201) 4.3 G/DL CALC GLOBULIN (test code = 2.7 G/DL 2240) CALC A/G RATIO (test code = 1.6 RATIO 2234) BILIRUBIN, TOTAL (test code = 0.3 MG/DL 2206) ALKALINE PHOSPHATASE (test 101 U/L code = 2204) AST (test code = 2218) 20 U/L ALT (test code = 2219) 14 U/L COMPREHENSIVE METABOLIC [id number] 00:00:00 Test Item Value Reference Range Interpretation Comments GLUCOSE (test code = 2217) 127 MG/DL BUN (test code = 2208) 13 MG/DL CREATININE (test code = 2214) 0.65 MG/DL eGFR AMER. (test code 112 ML/MIN/1.73 = 83569) eGFR NON- AMER. (test 96 ML/MIN/1.73 code = 94272) CALC BUN/CREAT (test code = 20 RATIO 2235) SODIUM (test code = 2231) 139 MEQ/L POTASSIUM (test code = 2228) 4.3 MEQ/L CHLORIDE (test code = 2215) 100 MEQ/L CARBON DIOXIDE (test code = 26 MEQ/L 2205) CALCIUM (test code = 2209) 9.3 MG/DL PROTEIN, TOTAL (test code = 7.0 G/DL 2228) ALBUMIN (test code = 2201) 4.3 G/DL CALC GLOBULIN (test code = 2.7 G/DL 2240) CALC A/G RATIO (test code = 1.6 RATIO 2234) BILIRUBIN, TOTAL (test code = 0.3 MG/DL 2206) ALKALINE PHOSPHATASE (test 101 U/L code = 2204) AST (test code = 2218) 20 U/L ALT (test code = 2219) 14 U/L LIPID [id number] 00:00:00 Test Item Value Reference Range Interpretation Comments CHOLESTEROL (test code = 2210) 187 MG/DL TRIGLYCERIDES (test code = 2232) 137 MG/DL HDL CHOLESTEROL (test code = 2220) 52 MG/DL CALC LDL CHOL (test code = 2237) 108 MG/DL RISK RATIO LDL/HDL (test code = 2.07 RATIO 2238) LIPID [id number] 00:00:00 Test Item Value Reference Range Interpretation Comments CHOLESTEROL (test code = 2210) 187 MG/DL TRIGLYCERIDES (test code = 2232) 137 MG/DL HDL CHOLESTEROL (test code = 2220) 52 MG/DL CALC LDL CHOL (test code = 2237) 108 MG/DL RISK RATIO LDL/HDL (test code = 2.07 RATIO 2238) HEMOGLOBIN [id number] 00:00:00 Test Item Value Reference Range Interpretation Comments HEMOGLOBIN A1c (test code = 71696) 6.1 % HEMOGLOBIN [id number] 00:00:00 Test Item Value Reference Range Interpretation Comments HEMOGLOBIN A1c (test code = 52211) 6.1 % HEMOGLOBIN [id number] 00:00:00 Test Item Value Reference Range Interpretation Comments HEMOGLOBIN A1c (test code = 88067) 6.1 % HEPATITIS C [id number] 00:00:00 Test Item Value Reference Range Interpretation Comments HEPATITIS C ANTIBODY (test code NON-REACTIVE = 4675) HEPATITIS C [id number] 00:00:00 Test Item Value Reference Range Interpretation Comments HEPATITIS C ANTIBODY (test code NON-REACTIVE = 4675) [id number] 00:00:00 Test Item Value Reference Range Interpretation Comments FERRITIN (test code = 5) 28 NG/ML [id number] 00:00:00 Test Item Value Reference Range Interpretation Comments FERRITIN (test code = 5) 28 NG/ML IRON BINDING CAPACITY AND IRON AND % [id number] 00:00:00 Test Item Value Reference Range Interpretation Comments IRON, SERUM (test code = 2221) 55 UG/DL UNSATURATED IBC (test code = ) 324 UG/DL CALC TOTAL IBC (test code = 2076) 379 UG/DL CALC % IRON SAT (test code = 2078) 15 % IRON BINDING CAPACITY AND IRON AND % [id number] 00:00:00 Test Item Value Reference Range Interpretation Comments IRON, SERUM (test code = 2222) 55 UG/DL UNSATURATED IBC (test code = 71362) 324 UG/DL CALC TOTAL IBC (test code = 2077) 379 UG/DL CALC % IRON SAT (test code = 2079) 15 % [id number] 00:00:00 Test Item Value Reference Range Interpretation Comments TRANSFERRIN (test code = 4936) 312 MG/DL [id number] 00:00:00 Test Item Value Reference Range Interpretation Comments TRANSFERRIN (test code = 4936) 312 MG/DL VITAMIN B 12 AND FOLIC [id number] 00:00:00 Test Item Value Reference Range Interpretation Comments VITAMIN B-12 (test code = 2840) 425 PG/ML FOLIC ACID (test code = 2695) 11.3 UG/L VITAMIN B 12 AND FOLIC [id number] 00:00:00 Test Item Value Reference Range Interpretation Comments VITAMIN B-12 (test code = 2840) 425 PG/ML FOLIC ACID (test code = 2695) 11.3 UG/L CBC W/AUTO [id number] 00:00:00 Test Item Value Reference Range Interpretation Comments WBC (test code = 1001) 7.9 K/UL RBC (test code = 1002) 4.48 M/UL HEMOGLOBIN (test code = 1003) 13.0 G/DL HEMATOCRIT (test code = 1004) 38.2 % MCV (test code = 1005) 85.3 fL MCH (test code = 1006) 29.0 PG MCHC (test code = 1007) 34.0 G/DL RDW (test code = 1038) 13.6 % NEUTROPHILS (test code = 1008) 67.1 % LYMPHOCYTES (test code = 1010) 26.4 % MONOCYTES (test code = 1011) 4.7 % EOSINOPHILS (test code = 1012) 1.4 % BASOPHILS (test code = 1013) 0.4 % PLATELET COUNT (test code = 1015) 268 K/UL CBC W/AUTO [id number] 00:00:00 Test Item Value Reference Range Interpretation Comments WBC (test code = 1001) 7.9 K/UL RBC (test code = 1002) 4.48 M/UL HEMOGLOBIN (test code = 1003) 13.0 G/DL HEMATOCRIT (test code = 1004) 38.2 % MCV (test code = 1005) 85.3 fL MCH (test code = 1006) 29.0 PG MCHC (test code = 1007) 34.0 G/DL RDW (test code = 1038) 13.6 % NEUTROPHILS (test code = 1008) 67.1 % LYMPHOCYTES (test code = 1010) 26.4 % MONOCYTES (test code = 1011) 4.7 % EOSINOPHILS (test code = 1012) 1.4 % BASOPHILS (test code = 1013) 0.4 % PLATELET COUNT (test code = 1015) 268 K/UL CBC W/AUTO [id number] 00:00:00 Test Item Value Reference Range Interpretation Comments WBC (test code = 1001) 7.9 K/UL RBC (test code = 1002) 4.48 M/UL HEMOGLOBIN (test code = 1003) 13.0 G/DL HEMATOCRIT (test code = 1004) 38.2 % MCV (test code = 1005) 85.3 fL MCH (test code = 1006) 29.0 PG MCHC (test code = 1007) 34.0 G/DL RDW (test code = 1038) 13.6 % NEUTROPHILS (test code = 1008) 67.1 % LYMPHOCYTES (test code = 1010) 26.4 % MONOCYTES (test code = 1011) 4.7 % EOSINOPHILS (test code = 1012) 1.4 % BASOPHILS (test code = 1013) 0.4 % PLATELET COUNT (test code = 1015) 268 K/UL COMPREHENSIVE METABOLIC [id number] 00:00:00 Test Item Value Reference Range Interpretation Comments GLUCOSE (test code = 2217) 127 MG/DL BUN (test code = 2208) 13 MG/DL CREATININE (test code = 2214) 0.65 MG/DL eGFR AMER. (test code 112 ML/MIN/1.73 = 39609) eGFR NON- AMER. (test 96 ML/MIN/1.73 code = 69378) CALC BUN/CREAT (test code = 20 RATIO 2235) SODIUM (test code = 2231) 139 MEQ/L POTASSIUM (test code = 2228) 4.3 MEQ/L CHLORIDE (test code = 2215) 100 MEQ/L CARBON DIOXIDE (test code = 26 MEQ/L 2206) CALCIUM (test code = 2209) 9.3 MG/DL PROTEIN, TOTAL (test code = 7.0 G/DL 222) ALBUMIN (test code = 2201) 4.3 G/DL CALC GLOBULIN (test code = 2.7 G/DL 2240) CALC A/G RATIO (test code = 1.6 RATIO 2234) BILIRUBIN, TOTAL (test code = 0.3 MG/DL 2207) ALKALINE PHOSPHATASE (test 101 U/L code = 2204) AST (test code = 2218) 20 U/L ALT (test code = 2219) 14 U/L COMPREHENSIVE METABOLIC [id number] 00:00:00 Test Item Value Reference Range Interpretation Comments GLUCOSE (test code = 2217) 127 MG/DL BUN (test code = 2208) 13 MG/DL CREATININE (test code = 2214) 0.65 MG/DL eGFR AMER. (test code 112 ML/MIN/1.73 = 89090) eGFR NON- AMER. (test 96 ML/MIN/1.73 code = 61160) CALC BUN/CREAT (test code = 20 RATIO 2235) SODIUM (test code = 2231) 139 MEQ/L POTASSIUM (test code = 2228) 4.3 MEQ/L CHLORIDE (test code = 2215) 100 MEQ/L CARBON DIOXIDE (test code = 26 MEQ/L 220) CALCIUM (test code = 2209) 9.3 MG/DL PROTEIN, TOTAL (test code = 7.0 G/DL 2228) ALBUMIN (test code = 2201) 4.3 G/DL CALC GLOBULIN (test code = 2.7 G/DL 2240) CALC A/G RATIO (test code = 1.6 RATIO 2234) BILIRUBIN, TOTAL (test code = 0.3 MG/DL 2207) ALKALINE PHOSPHATASE (test 101 U/L code = 2204) AST (test code = 2218) 20 U/L ALT (test code = 2219) 14 U/L LIPID [id number] 00:00:00 Test Item Value Reference Range Interpretation Comments CHOLESTEROL (test code = 2210) 187 MG/DL TRIGLYCERIDES (test code = 2232) 137 MG/DL HDL CHOLESTEROL (test code = 2220) 52 MG/DL CALC LDL CHOL (test code = 2237) 108 MG/DL RISK RATIO LDL/HDL (test code = 2.07 RATIO 2238) LIPID [id number] 00:00:00 Test Item Value Reference Range Interpretation Comments CHOLESTEROL (test code = 2210) 187 MG/DL TRIGLYCERIDES (test code = 2232) 137 MG/DL HDL CHOLESTEROL (test code = 2220) 52 MG/DL CALC LDL CHOL (test code = 2237) 108 MG/DL RISK RATIO LDL/HDL (test code = 2.07 RATIO 8) HEMOGLOBIN [id number] 00:00:00 Test Item Value Reference Range Interpretation Comments HEMOGLOBIN A1c (test code = 23131) 6.1 % HEMOGLOBIN [id number] 00:00:00 Test Item Value Reference Range Interpretation Comments HEMOGLOBIN A1c (test code = 75086) 6.1 % HEMOGLOBIN [id number] 00:00:00 Test Item Value Reference Range Interpretation Comments HEMOGLOBIN A1c (test code = 14622) 6.1 % HEPATITIS C [id number] 00:00:00 Test Item Value Reference Range Interpretation Comments HEPATITIS C ANTIBODY (test code NON-REACTIVE = 4675) HEPATITIS C [id number] 00:00:00 Test Item Value Reference Range Interpretation Comments HEPATITIS C ANTIBODY (test code NON-REACTIVE = 4675) [id number] 00:00:00 Test Item Value Reference Range Interpretation Comments FERRITIN (test code = 5) 28 NG/ML [id number] 00:00:00 Test Item Value Reference Range Interpretation Comments FERRITIN (test code = 5) 28 NG/ML IRON BINDING CAPACITY AND IRON AND % [id number] 00:00:00 Test Item Value Reference Range Interpretation Comments IRON, SERUM (test code = 2221) 55 UG/DL UNSATURATED IBC (test code = ) 324 UG/DL CALC TOTAL IBC (test code = 2076) 379 UG/DL CALC % IRON SAT (test code = 9) 15 % IRON BINDING CAPACITY AND IRON AND % [id number] 00:00:00 Test Item Value Reference Range Interpretation Comments IRON, SERUM (test code = 2) 55 UG/DL UNSATURATED IBC (test code = 67326) 324 UG/DL CALC TOTAL IBC (test code = 7) 379 UG/DL CALC % IRON SAT (test code = 9) 15 % [id number] 00:00:00 Test Item Value Reference Range Interpretation Comments TRANSFERRIN (test code = 4936) 312 MG/DL [id number] 00:00:00 Test Item Value Reference Range Interpretation Comments TRANSFERRIN (test code = 4936) 312 MG/DL VITAMIN B 12 AND FOLIC [id number] 00:00:00 Test Item Value Reference Range Interpretation Comments VITAMIN B-12 (test code = 2840) 425 PG/ML FOLIC ACID (test code = 2695) 11.3 UG/L VITAMIN B 12 AND FOLIC [id number] 00:00:00 Test Item Value Reference Range Interpretation Comments VITAMIN B-12 (test code = 2840) 425 PG/ML FOLIC ACID (test code = 2695) 11.3 UG/L CBC W/AUTO [id number] 00:00:00 Test Item Value Reference Range Interpretation Comments WBC (test code = 1001) 7.9 K/UL RBC (test code = 1002) 4.48 M/UL HEMOGLOBIN (test code = 1003) 13.0 G/DL HEMATOCRIT (test code = 1004) 38.2 % MCV (test code = 1005) 85.3 fL MCH (test code = 1006) 29.0 PG MCHC (test code = 1007) 34.0 G/DL RDW (test code = 1038) 13.6 % NEUTROPHILS (test code = 1008) 67.1 % LYMPHOCYTES (test code = 1010) 26.4 % MONOCYTES (test code = 1011) 4.7 % EOSINOPHILS (test code = 1012) 1.4 % BASOPHILS (test code = 1013) 0.4 % PLATELET COUNT (test code = 1015) 268 K/UL COMPREHENSIVE METABOLIC [id number] 00:00:00 Test Item Value Reference Range Interpretation Comments GLUCOSE (test code = 2217) 87 MG/DL BUN (test code = 2208) 24 MG/DL CREATININE (test code = 2214) 0.7 MG/DL eGFR AMER. (test code 104 ML/MIN/1.73 = 46768) eGFR NON- AMER. (test 86 ML/MIN/1.73 code = 41135) CALCULATED BUN/CREAT (test 34 RATIO code = 2235) SODIUM (test code = 2231) 138 MEQ/L POTASSIUM (test code = 2228) 4.1 MEQ/L CHLORIDE (test code = 2215) 104 MEQ/L CARBON DIOXIDE (test code = 27 MEQ/L 2205) CALCIUM (test code = 2209) 9.8 MG/DL PROTEIN, TOTAL (test code = 7.1 G/DL 2228) ALBUMIN (test code = 2201) 4.2 G/DL CALCULATED GLOBULIN (test 2.9 G/DL code = 2240) CALCULATED A/G RATIO (test 1.4 RATIO code = 2234) BILIRUBIN, TOTAL (test code = 0.4 MG/DL 2206) ALKALINE PHOSPHATASE (test 84 U/L code = 2204) SGOT (AST) (test code = 2218) 11 U/L SGPT (ALT) (test code = 2219) 8 U/L COMPREHENSIVE METABOLIC [id number] 00:00:00 Test Item Value Reference Range Interpretation Comments GLUCOSE (test code = 2217) 87 MG/DL BUN (test code = 2208) 24 MG/DL CREATININE (test code = 2214) 0.7 MG/DL eGFR AMER. (test code 104 ML/MIN/1.73 = 16348) eGFR NON- AMER. (test 86 ML/MIN/1.73 code = 98637) CALCULATED BUN/CREAT (test 34 RATIO code = 2235) SODIUM (test code = 2231) 138 MEQ/L POTASSIUM (test code = 2228) 4.1 MEQ/L CHLORIDE (test code = 2215) 104 MEQ/L CARBON DIOXIDE (test code = 27 MEQ/L 2205) CALCIUM (test code = 2209) 9.8 MG/DL PROTEIN, TOTAL (test code = 7.1 G/DL 2228) ALBUMIN (test code = 2201) 4.2 G/DL CALCULATED GLOBULIN (test 2.9 G/DL code = 2240) CALCULATED A/G RATIO (test 1.4 RATIO code = 2234) BILIRUBIN, TOTAL (test code = 0.4 MG/DL 2206) ALKALINE PHOSPHATASE (test 84 U/L code = 2204) SGOT (AST) (test code = 2218) 11 U/L SGPT (ALT) (test code = 2219) 8 U/L COMPREHENSIVE METABOLIC [id number] 00:00:00 Test Item Value Reference Range Interpretation Comments GLUCOSE (test code = 2217) 87 MG/DL BUN (test code = 2208) 24 MG/DL CREATININE (test code = 2214) 0.7 MG/DL eGFR AMER. (test code 104 ML/MIN/1.73 = 44031) eGFR NON- AMER. (test 86 ML/MIN/1.73 code = 02596) CALCULATED BUN/CREAT (test 34 RATIO code = 2235) SODIUM (test code = 2231) 138 MEQ/L POTASSIUM (test code = 2228) 4.1 MEQ/L CHLORIDE (test code = 2215) 104 MEQ/L CARBON DIOXIDE (test code = 27 MEQ/L 220) CALCIUM (test code = 2209) 9.8 MG/DL PROTEIN, TOTAL (test code = 7.1 G/DL 2228) ALBUMIN (test code = 2201) 4.2 G/DL CALCULATED GLOBULIN (test 2.9 G/DL code = 2240) CALCULATED A/G RATIO (test 1.4 RATIO code = 2234) BILIRUBIN, TOTAL (test code = 0.4 MG/DL 2206) ALKALINE PHOSPHATASE (test 84 U/L code = 2204) SGOT (AST) (test code = 2218) 11 U/L SGPT (ALT) (test code = 2219) 8 U/L CBC W/AUTO [id number] 00:00:00 Test Item Value Reference Range Interpretation Comments WBC (test code = 1001) 9.2 K/UL RBC (test code = 1002) 4.56 M/UL HEMOGLOBIN (test code = 1003) 11.8 G/DL HEMATOCRIT (test code = 1004) 37.9 % MCV (test code = 1005) 83.1 fL MCH (test code = 1006) 25.9 PG MCHC (test code = 1007) 31.1 G/DL RDW (test code = 1038) 20.1 % NEUTROPHILS (test code = 1008) 73 % LYMPHOCYTES (test code = 1010) 21 % MONOCYTES (test code = 1011) 5 % EOSINOPHILS (test code = 1012) % BASOPHILS (test code = 1013) % PLATELET COUNT (test code = 1015) 282 K/UL CBC W/AUTO [id number] 00:00:00 Test Item Value Reference Range Interpretation Comments WBC (test code = 1001) 9.2 K/UL RBC (test code = 1002) 4.56 M/UL HEMOGLOBIN (test code = 1003) 11.8 G/DL HEMATOCRIT (test code = 1004) 37.9 % MCV (test code = 1005) 83.1 fL MCH (test code = 1006) 25.9 PG MCHC (test code = 1007) 31.1 G/DL RDW (test code = 1038) 20.1 % NEUTROPHILS (test code = 1008) 73 % LYMPHOCYTES (test code = 1010) 21 % MONOCYTES (test code = 1011) 5 % EOSINOPHILS (test code = 1012) % BASOPHILS (test code = 1013) % PLATELET COUNT (test code = 1015) 282 K/UL CBC W/AUTO [id number] 00:00:00 Test Item Value Reference Range Interpretation Comments WBC (test code = 1001) 9.2 K/UL RBC (test code = 1002) 4.56 M/UL HEMOGLOBIN (test code = 1003) 11.8 G/DL HEMATOCRIT (test code = 1004) 37.9 % MCV (test code = 1005) 83.1 fL MCH (test code = 1006) 25.9 PG MCHC (test code = 1007) 31.1 G/DL RDW (test code = 1038) 20.1 % NEUTROPHILS (test code = 1008) 73 % LYMPHOCYTES (test code = 1010) 21 % MONOCYTES (test code = 1011) 5 % EOSINOPHILS (test code = 1012) % BASOPHILS (test code = 1013) % PLATELET COUNT (test code = 1015) 282 K/UL CBC W/AUTO [id number] 00:00:00 Test Item Value Reference Range Interpretation Comments WBC (test code = 1001) 9.2 K/UL RBC (test code = 1002) 4.56 M/UL HEMOGLOBIN (test code = 1003) 11.8 G/DL HEMATOCRIT (test code = 1004) 37.9 % MCV (test code = 1005) 83.1 fL MCH (test code = 1006) 25.9 PG MCHC (test code = 1007) 31.1 G/DL RDW (test code = 1038) 20.1 % NEUTROPHILS (test code = 1008) 73 % LYMPHOCYTES (test code = 1010) 21 % MONOCYTES (test code = 1011) 5 % EOSINOPHILS (test code = 1012) % BASOPHILS (test code = 1013) % PLATELET COUNT (test code = 1015) 282 K/UL CBC W/AUTO [id number] 00:00:00 Test Item Value Reference Range Interpretation Comments WBC (test code = 1001) 9.2 K/UL RBC (test code = 1002) 4.56 M/UL HEMOGLOBIN (test code = 1003) 11.8 G/DL HEMATOCRIT (test code = 1004) 37.9 % MCV (test code = 1005) 83.1 fL MCH (test code = 1006) 25.9 PG MCHC (test code = 1007) 31.1 G/DL RDW (test code = 1038) 20.1 % NEUTROPHILS (test code = 1008) 73 % LYMPHOCYTES (test code = 1010) 21 % MONOCYTES (test code = 1011) 5 % EOSINOPHILS (test code = 1012) % BASOPHILS (test code = 1013) % PLATELET COUNT (test code = 1015) 282 K/UL COMPREHENSIVE METABOLIC [id number] 00:00:00 Test Item Value Reference Range Interpretation Comments GLUCOSE (test code = 2217) 87 MG/DL BUN (test code = 2208) 24 MG/DL CREATININE (test code = 2214) 0.7 MG/DL eGFR AMER. (test code 104 ML/MIN/1.73 = 19141) eGFR NON- AMER. (test 86 ML/MIN/1.73 code = 67933) CALCULATED BUN/CREAT (test 34 RATIO code = 2235) SODIUM (test code = 2231) 138 MEQ/L POTASSIUM (test code = 2228) 4.1 MEQ/L CHLORIDE (test code = 2215) 104 MEQ/L CARBON DIOXIDE (test code = 27 MEQ/L 2205) CALCIUM (test code = 2209) 9.8 MG/DL PROTEIN, TOTAL (test code = 7.1 G/DL 2228) ALBUMIN (test code = 2201) 4.2 G/DL CALCULATED GLOBULIN (test 2.9 G/DL code = 2240) CALCULATED A/G RATIO (test 1.4 RATIO code = 2234) BILIRUBIN, TOTAL (test code = 0.4 MG/DL 2206) ALKALINE PHOSPHATASE (test 84 U/L code = 2204) SGOT (AST) (test code = 2218) 11 U/L SGPT (ALT) (test code = 2219) 8 U/L CBC W/AUTO [id number] 00:00:00 Test Item Value Reference Range Interpretation Comments WBC (test code = 1001) 9.2 K/UL RBC (test code = 1002) 4.56 M/UL HEMOGLOBIN (test code = 1003) 11.8 G/DL HEMATOCRIT (test code = 1004) 37.9 % MCV (test code = 1005) 83.1 fL MCH (test code = 1006) 25.9 PG MCHC (test code = 1007) 31.1 G/DL RDW (test code = 1038) 20.1 % NEUTROPHILS (test code = 1008) 73 % LYMPHOCYTES (test code = 1010) 21 % MONOCYTES (test code = 1011) 5 % EOSINOPHILS (test code = 1012) % BASOPHILS (test code = 1013) % PLATELET COUNT (test code = 1015) 282 K/UL CBC W/AUTO [id number] 00:00:00 Test Item Value Reference Range Interpretation Comments WBC (test code = 1001) 9.2 K/UL RBC (test code = 1002) 4.56 M/UL HEMOGLOBIN (test code = 1003) 11.8 G/DL HEMATOCRIT (test code = 1004) 37.9 % MCV (test code = 1005) 83.1 fL MCH (test code = 1006) 25.9 PG MCHC (test code = 1007) 31.1 G/DL RDW (test code = 1038) 20.1 % NEUTROPHILS (test code = 1008) 73 % LYMPHOCYTES (test code = 1010) 21 % MONOCYTES (test code = 1011) 5 % EOSINOPHILS (test code = 1012) % BASOPHILS (test code = 1013) % PLATELET COUNT (test code = 1015) 282 K/UL COMPREHENSIVE METABOLIC [id number] 00:00:00 Test Item Value Reference Range Interpretation Comments GLUCOSE (test code = 2217) 87 MG/DL BUN (test code = 2208) 24 MG/DL CREATININE (test code = 2214) 0.7 MG/DL eGFR AMER. (test code 104 ML/MIN/1.73 = 75967) eGFR NON- AMER. (test 86 ML/MIN/1.73 code = 07447) CALCULATED BUN/CREAT (test 34 RATIO code = 2235) SODIUM (test code = 2231) 138 MEQ/L POTASSIUM (test code = 2228) 4.1 MEQ/L CHLORIDE (test code = 2215) 104 MEQ/L CARBON DIOXIDE (test code = 27 MEQ/L 2205) CALCIUM (test code = 2209) 9.8 MG/DL PROTEIN, TOTAL (test code = 7.1 G/DL 2228) ALBUMIN (test code = 2201) 4.2 G/DL CALCULATED GLOBULIN (test 2.9 G/DL code = 2240) CALCULATED A/G RATIO (test 1.4 RATIO code = 2234) BILIRUBIN, TOTAL (test code = 0.4 MG/DL 2206) ALKALINE PHOSPHATASE (test 84 U/L code = 2204) SGOT (AST) (test code = 2218) 11 U/L SGPT (ALT) (test code = 2219) 8 U/L COMPREHENSIVE METABOLIC [id number] 00:00:00 Test Item Value Reference Range Interpretation Comments GLUCOSE (test code = 2217) 87 MG/DL BUN (test code = 2208) 24 MG/DL CREATININE (test code = 2214) 0.7 MG/DL eGFR AMER. (test code 104 ML/MIN/1.73 = 56725) eGFR NON- AMER. (test 86 ML/MIN/1.73 code = 92584) CALCULATED BUN/CREAT (test 34 RATIO code = 2235) SODIUM (test code = 2231) 138 MEQ/L POTASSIUM (test code = 2228) 4.1 MEQ/L CHLORIDE (test code = 2215) 104 MEQ/L CARBON DIOXIDE (test code = 27 MEQ/L 2205) CALCIUM (test code = 2209) 9.8 MG/DL PROTEIN, TOTAL (test code = 7.1 G/DL 2228) ALBUMIN (test code = 2201) 4.2 G/DL CALCULATED GLOBULIN (test 2.9 G/DL code = 2240) CALCULATED A/G RATIO (test 1.4 RATIO code = 2234) BILIRUBIN, TOTAL (test code = 0.4 MG/DL 2206) ALKALINE PHOSPHATASE (test 84 U/L code = 2204) SGOT (AST) (test code = 2218) 11 U/L SGPT (ALT) (test code = 2219) 8 U/L CBC W/AUTO [id number] 00:00:00 Test Item Value Reference Range Interpretation Comments WBC (test code = 1001) 9.2 K/UL RBC (test code = 1002) 4.56 M/UL HEMOGLOBIN (test code = 1003) 11.8 G/DL HEMATOCRIT (test code = 1004) 37.9 % MCV (test code = 1005) 83.1 fL MCH (test code = 1006) 25.9 PG MCHC (test code = 1007) 31.1 G/DL RDW (test code = 1038) 20.1 % NEUTROPHILS (test code = 1008) 73 % LYMPHOCYTES (test code = 1010) 21 % MONOCYTES (test code = 1011) 5 % EOSINOPHILS (test code = 1012) % BASOPHILS (test code = 1013) % PLATELET COUNT (test code = 1015) 282 K/UL CBC W/AUTO [id number] 00:00:00 Test Item Value Reference Range Interpretation Comments WBC (test code = 1001) 9.2 K/UL RBC (test code = 1002) 4.56 M/UL HEMOGLOBIN (test code = 1003) 11.8 G/DL HEMATOCRIT (test code = 1004) 37.9 % MCV (test code = 1005) 83.1 fL MCH (test code = 1006) 25.9 PG MCHC (test code = 1007) 31.1 G/DL RDW (test code = 1038) 20.1 % NEUTROPHILS (test code = 1008) 73 % LYMPHOCYTES (test code = 1010) 21 % MONOCYTES (test code = 1011) 5 % EOSINOPHILS (test code = 1012) % BASOPHILS (test code = 1013) % PLATELET COUNT (test code = 1015) 282 K/UL CBC W/AUTO [id number] 00:00:00 Test Item Value Reference Range Interpretation Comments WBC (test code = 1001) 9.2 K/UL RBC (test code = 1002) 4.56 M/UL HEMOGLOBIN (test code = 1003) 11.8 G/DL HEMATOCRIT (test code = 1004) 37.9 % MCV (test code = 1005) 83.1 fL MCH (test code = 1006) 25.9 PG MCHC (test code = 1007) 31.1 G/DL RDW (test code = 1038) 20.1 % NEUTROPHILS (test code = 1008) 73 % LYMPHOCYTES (test code = 1010) 21 % MONOCYTES (test code = 1011) 5 % EOSINOPHILS (test code = 1012) % BASOPHILS (test code = 1013) % PLATELET COUNT (test code = 1015) 282 K/UL COMPREHENSIVE METABOLIC [id number] 00:00:00 Test Item Value Reference Range Interpretation Comments GLUCOSE (test code = 2217) 87 MG/DL BUN (test code = 2208) 24 MG/DL CREATININE (test code = 2214) 0.7 MG/DL eGFR AMER. (test code 104 ML/MIN/1.73 = 64739) eGFR NON- AMER. (test 86 ML/MIN/1.73 code = 28034) CALCULATED BUN/CREAT (test 34 RATIO code = 2235) SODIUM (test code = 2231) 138 MEQ/L POTASSIUM (test code = 2228) 4.1 MEQ/L CHLORIDE (test code = 2215) 104 MEQ/L CARBON DIOXIDE (test code = 27 MEQ/L 2206) CALCIUM (test code = 2209) 9.8 MG/DL PROTEIN, TOTAL (test code = 7.1 G/DL 2228) ALBUMIN (test code = 2201) 4.2 G/DL CALCULATED GLOBULIN (test 2.9 G/DL code = 2240) CALCULATED A/G RATIO (test 1.4 RATIO code = 2234) BILIRUBIN, TOTAL (test code = 0.4 MG/DL 2206) ALKALINE PHOSPHATASE (test 84 U/L code = 2204) SGOT (AST) (test code = 2218) 11 U/L SGPT (ALT) (test code = 2219) 8 U/L COMPREHENSIVE METABOLIC [id number] 00:00:00 Test Item Value Reference Range Interpretation Comments GLUCOSE (test code = 2217) 87 MG/DL BUN (test code = 2208) 24 MG/DL CREATININE (test code = 2214) 0.7 MG/DL eGFR AMER. (test code 104 ML/MIN/1.73 = 37338) eGFR NON- AMER. (test 86 ML/MIN/1.73 code = 28690) CALCULATED BUN/CREAT (test 34 RATIO code = 2235) SODIUM (test code = 2231) 138 MEQ/L POTASSIUM (test code = 2228) 4.1 MEQ/L CHLORIDE (test code = 2215) 104 MEQ/L CARBON DIOXIDE (test code = 27 MEQ/L 2206) CALCIUM (test code = 2209) 9.8 MG/DL PROTEIN, TOTAL (test code = 7.1 G/DL 2229) ALBUMIN (test code = 2201) 4.2 G/DL CALCULATED GLOBULIN (test 2.9 G/DL code = 2240) CALCULATED A/G RATIO (test 1.4 RATIO code = 2234) BILIRUBIN, TOTAL (test code = 0.4 MG/DL 2207) ALKALINE PHOSPHATASE (test 84 U/L code = 2204) SGOT (AST) (test code = 2218) 11 U/L SGPT (ALT) (test code = 2219) 8 U/L CBC W/AUTO [id number] 00:00:00 Test Item Value Reference Range Interpretation Comments WBC (test code = 1001) 9.2 K/UL RBC (test code = 1002) 4.56 M/UL HEMOGLOBIN (test code = 1003) 11.8 G/DL HEMATOCRIT (test code = 1004) 37.9 % MCV (test code = 1005) 83.1 fL MCH (test code = 1006) 25.9 PG MCHC (test code = 1007) 31.1 G/DL RDW (test code = 1038) 20.1 % NEUTROPHILS (test code = 1008) 73 % LYMPHOCYTES (test code = 1010) 21 % MONOCYTES (test code = 1011) 5 % EOSINOPHILS (test code = 1012) % BASOPHILS (test code = 1013) % PLATELET COUNT (test code = 1015) 282 K/UL CBC W/AUTO [id number] 00:00:00 Test Item Value Reference Range Interpretation Comments WBC (test code = 1001) 9.2 K/UL RBC (test code = 1002) 4.56 M/UL HEMOGLOBIN (test code = 1003) 11.8 G/DL HEMATOCRIT (test code = 1004) 37.9 % MCV (test code = 1005) 83.1 fL MCH (test code = 1006) 25.9 PG MCHC (test code = 1007) 31.1 G/DL RDW (test code = 1038) 20.1 % NEUTROPHILS (test code = 1008) 73 % LYMPHOCYTES (test code = 1010) 21 % MONOCYTES (test code = 1011) 5 % EOSINOPHILS (test code = 1012) % BASOPHILS (test code = 1013) % PLATELET COUNT (test code = 1015) 282 K/UL CBC W/AUTO [id number] 00:00:00 Test Item Value Reference Range Interpretation Comments WBC (test code = 1001) 9.2 K/UL RBC (test code = 1002) 4.56 M/UL HEMOGLOBIN (test code = 1003) 11.8 G/DL HEMATOCRIT (test code = 1004) 37.9 % MCV (test code = 1005) 83.1 fL MCH (test code = 1006) 25.9 PG MCHC (test code = 1007) 31.1 G/DL RDW (test code = 1038) 20.1 % NEUTROPHILS (test code = 1008) 73 % LYMPHOCYTES (test code = 1010) 21 % MONOCYTES (test code = 1011) 5 % EOSINOPHILS (test code = 1012) % BASOPHILS (test code = 1013) % PLATELET COUNT (test code = 1015) 282 K/UL Lumbar Spine 3 ViewsLumbar Spine 3 Views
[2022-08-24] MEDS ORDERED: ASPIRIN 81 MG CHEWABLE TABLET ONE (02:46)
[2022-08-24 02:47] LABS: Absolute Lymphocytes (CBC) 2.2 K/uL (0.7-4.9); Hematocrit 37.5 % (36.0-45.0); Lymphocytes % 32.4 % (15.3-44.8); MCV 88.5 fL (80-100); MPV 7.8 fL (7.6-11.3); RBC Red Blood Cell Count 4.24 M/uL (3.86-4.86)
[2022-08-24 03:05] LABS: Troponin High Sensitivity 9.7 pg/mL (<58.9)
[2022-08-24 03:06] LABS: Magnesium 2.2 mg/dL (1.8-2.4); Potassium 3.8 mmol/L (3.5-5.1)
--- NOTE | 2022-08-24 04:50 | ER ---
Nurse's Notes [facility] Name: Anaid Martinez Age: 67 yrs Sex: Female : 1955 Arrival Date: 08/24/2022 Time: 02:10 Bed 13 Private MD: Diagnosis: Chest pain, unspecified;Essential (primary) hypertension Presentation: 08/24 02:26 Chief complaint: Patient states: "I started getting a sharp pain in my chest around 1 tw5 PM yesterday. The sharp pain went away but it was still a lingering pain. Then I started to get a sharp pain again". Coronavirus screen: Vaccine status: Patient reports receiving the 2nd dose of the covid vaccine. [employer]. Ebola Screen: Patient negative for fever greater than or equal to 101.5 degrees Fahrenheit, and additional compatible Ebola Virus Disease symptoms Patient denies exposure to infectious person. Patient denies travel to an Ebola-affected area in the 21 days before illness onset. Initial Sepsis Screen: Does the patient meet any 2 criteria? No. Patient's initial sepsis screen is negative. Does the patient have a suspected source of infection? No. Patient's initial sepsis screen is negative. Risk Assessment: Do you want to hurt yourself or someone else? Patient reports no desire to harm self or others. Onset of symptoms was August 23, 2022 at 13:00. 02:26 Method Of Arrival: Wheelchair tw5 02:26 Acuity: KATHY 2 tw5 Triage Assessment: 02:31 General: Appears uncomfortable, Behavior is calm, cooperative, appropriate for age. tw5 Pain: Pain currently is 5 out of 10 on a pain scale. Historical: - Allergies: 02:31 Hydrocodone-Acetaminophen; tw5 - Home Meds: 02:31 "blood pressure medicine" [Active]; amlodipine oral [Active]; tw5 - PMHx: 02:31 Arthritis; borderline diabetic; Hypertension; tw5 - Immunization history:: Flu vaccine is not up to date. - Social history:: Smoking status: Patient denies any tobacco usage or history of. Screenin:46 Abuse screen: Denies threats or abuse. Nutritional screening: No deficits noted. ke1 Tuberculosis screening: No symptoms or risk factors identified. Fall Risk None identified. Assessment: 04:07 Reassessment: Patient is alert, oriented x 3, equal unlabored respirations, skin ke1 warm/dry/pink. Patient states symptoms have improved. Vital Signs: 02:26 BP 155 / 49; Pulse 55; Resp 18; Temp 98.2; Pulse Ox 98% ; Weight 104.33 kg; Height 4 tw5 ft. 5 in. (134.62 cm); Pain 5/10; 04:04 BP 145 / 80; Pulse 64; Resp 16; Pulse Ox 97% on R/A; ke1 02:26 Body Mass Index 57.57 (104.33 kg, 134.62 cm) tw5 ED Course: 02:10 Patient arrived in ED. ja2 02:12 Davis Gonzales DO is Attending Physician. ms3 02:14 Nichelle Cid, RN is Primary Nurse. ke1 02:30 Missed attempt(s): 20 gauge in right forearm. ke1 02:31 Triage completed. tw5 02:31 Arm band placed on. tw5 02:42 Inserted saline lock: 20 gauge in right antecubital area, using aseptic technique. ke1 02:43 Basic Metabolic Panel Sent. ke1 02:43 CBC with Diff Sent. ke1 02:43 Magnesium Sent. ke1 02:43 NT PRO-BNP Sent. ke1 02:43 Troponin HS Sent. ke1 02:46 Patient maintains SpO2 saturation greater than 95% on room air. ke1 02:47 Bed in low position. Call light in reach. Side rails up X 1. Client placed on ke1 continuous cardiac and pulse oximetry monitoring. NIBP monitoring applied. court recording monitor on. Pulse ox on. NIBP on. 02:51 XRAY Chest (1 view) In Process Unspecified. EDMS 02:54 D-Dimer Sent. ke1 03:15 Notified ED physician of a critical lab result(s). ddimer 783. tw5 03:55 Chest Angio In Process Unspecified. EDMS 04:48 Davis Gonzales DO is Hospitalizing Provider. ms3 Administered Medications: 02:46 Drug: Aspirin Chewable Tablet 324 mg Route: PO; ke1 07:04 Follow up: Response: No adverse reaction ke1 Outcome: 04:49 Decision to Hospitalize by Provider. ms3 14:15 Patient left the ED. eb Signatures: Dispatcher [employer] EDMT Kaylie Gamble Marcus, DO DO ms3 Tena Holder ja2 Katlyn Adams tw5 Nichelle Cid, RN RN ke1
--- NOTE | 2022-08-24 04:50 | EDPHYS ---
Physician Documentation [facility] Name: Anaid Martinez Age: 67 yrs Sex: Female : 1955 Arrival Date: 08/24/2022 Time: 02:10 Bed 13 Private MD: ED Physician Davis Gonzales HPI: 08/24 02:27 This 67 yrs old Female presents to ER via Unassigned with complaints of Chest ms3 Pain. 02:27 The patient or guardian reports chest pain that is located primarily in the anterior ms3 aspect of left upper chest. Onset: yesterday. The pain does not radiate. Associated signs and symptoms: Pertinent positives: nausea, shortness of breath, Pertinent negatives: syncope, vomiting. The chest pain is described as sharp. Duration: The patient or guardian reports multiple episodes, that are intermittent. Modifying factors: The symptoms are alleviated by nothing. the symptoms are aggravated by nothing. Severity of pain: At its worst the pain was severe in the emergency department the pain has improved. Historical: - Allergies: 02:31 Hydrocodone-Acetaminophen; tw5 - Home Meds: 02:31 "blood pressure medicine" [Active]; amlodipine oral [Active]; tw5 - PMHx: 02:31 Arthritis; borderline diabetic; Hypertension; tw5 - Immunization history:: Flu vaccine is not up to date. - Social history:: Smoking status: Patient denies any tobacco usage or history of. ROS: 02:27 Constitutional: Negative for fever, and chills. Neck: Negative for injury, pain, and ms3 swelling, Cardiovascular: Negative for chest pain, and palpitations. 02:27 Back: Negative for injury and pain, MS/Extremity: Negative for injury and deformity, Skin: Negative for injury, rash, and discoloration. 02:27 Respiratory: Positive for shortness of breath. 02:27 All other systems are negative. Exam: 02:27 Constitutional: This is a well developed, well nourished patient who is awake, alert, ms3 and in no acute distress. Head/Face: Normocephalic, atraumatic. Neck: Trachea midline, no cervical lymphadenopathy. Supple, full range of motion without nuchal rigidity, or vertebral point tenderness. No Meningismus. Chest/axilla: Normal chest wall appearance and motion. Nontender with no deformity. Cardiovascular: Regular rate and rhythm with a normal S1 and S2. No gallops, murmurs, or rubs. Normal PMI, no JVD. No pulse deficits. Respiratory: Lungs have equal breath sounds bilaterally, clear to auscultation and percussion. No rales, rhonchi or wheezes noted. No increased work of breathing, no retractions or nasal flaring. Abdomen/GI: Soft, non-tender, with normal bowel sounds. No distension or tympany. No guarding or rebound. No evidence of tenderness throughout. Skin: Warm, dry with normal turgor. Normal color with no rashes, no lesions, and no evidence of cellulitis. MS/ Extremity: Pulses equal, no cyanosis. Neurovascular intact. Full, normal range of motion. 02:46 ECG was reviewed by the Attending Physician. ms3 Vital Signs: 02:26 BP 155 / 49; Pulse 55; Resp 18; Temp 98.2; Pulse Ox 98% ; Weight 104.33 kg; Height 4 tw5 ft. 5 in. (134.62 cm); Pain 5/10; 04:04 BP 145 / 80; Pulse 64; Resp 16; Pulse Ox 97% on R/A; ke1 02:26 Body Mass Index 57.57 (104.33 kg, 134.62 cm) tw5 MDM: 02:21 Patient medically screened. ms3 02:27 Differential diagnosis: abnormal EKG, acute myocardial infarction, coronary artery ms3 disease chest wall pain, gastritis, pneumonia. 04:41 HEART Score: History: Slightly Suspicious (0), ECG: Normal (0), Age: > or = 65 years ms3 (2), Risk Factors: > or = 3 Risk factors for atherosclerotic disease (2), [Hypercholesterolemia] [Hypertension] [DM] Troponin: < or = 1 x Normal Limit (0). The patient was given aspirin in the Emergency Department. 04:49 Data reviewed: vital signs, nurses notes, lab test result(s), EKG, radiologic studies, ms3 and as a result, I will admit patient. Counseling: I had a detailed discussion with the patient and/or guardian regarding: the historical points, exam findings, and any diagnostic results supporting the discharge/admit diagnosis, lab results, radiology results, the need for further work-up and treatment in the hospital. ED course: Discussed labs, chest x-ray, EKG with patient. Discussed observation with patient patient understands and agrees with plan. Discussed case with ELOISE Muller, and she accepts patient on behalf of of Dr. Tello.. 08/24 02:12 Order name: Basic Metabolic Panel; Complete Time: 03:16 ms3 08/24 02:12 Order name: CBC with Diff; Complete Time: 03:16 ms3 08/24 02:12 Order name: Magnesium; Complete Time: 03:16 ms3 08/24 02:12 Order name: NT PRO-BNP; Complete Time: 03:16 ms3 08/24 02:12 Order name: Troponin HS; Complete Time: 03:16 ms3 08/24 02:34 Order name: D-Dimer; Complete Time: 03:16 ms3 08/24 02:12 Order name: XRAY Chest (1 view) ms3 08/24 03:17 Order name: CT Chest Angio ms3 08/24 03:23 Order name: Chest Angio EDMS 08/24 04:50 Order name: SARS RAPID; Complete Time: 05:45 ms3 08/24 06:56 Order name: Lipid Profile EDMS 08/24 06:56 Order name: Thyroid Stimulating Hormone EDMS 08/24 07:09 Order name: T4 Free EDMS 08/24 02:12 Order name: EKG; Complete Time: 02:13 ms3 08/24 02:12 Order name: Cardiac monitoring; Complete Time: 02:42 ms3 08/24 02:12 Order name: EKG - Nurse/Tech; Complete Time: 02:42 ms3 08/24 02:12 Order name: IV Saline Lock; Complete Time: 02:42 ms3 08/24 02:12 Order name: Labs collected and sent; Complete Time: 02:42 ms3 08/24 02:12 Order name: O2 Per Protocol; Complete Time: 02:42 ms3 08/24 02:12 Order name: O2 Sat Monitoring; Complete Time: 02:43 ms3 EC:46 Rate is 57 beats/min. Rhythm is regular. QRS [place] is Normal. [place] interval is normal. QRS ms3 interval is normal. QT interval is normal. Interpreted by me. Reviewed by me. Administered Medications: 02:46 Drug: Aspirin Chewable Tablet 324 mg Route: PO; ke1 07:04 Follow up: Response: No adverse reaction ke1 Disposition Summary: 08/24/22 04:49 Hospitalization Ordered Hospitalization Status: Observation ms3 Provider: Davis Gonzales ms3 Condition: Stable ms3 Problem: new ms3 Symptoms: are unchanged ms3 Bed/Room Type: Standard ms3 Location: Telemetry/MedSurg (observation)(08/24/22 13:28) eb Room Assignment: [facility](08/24/22 13:28) eb Diagnosis - Chest pain, unspecified ms3 - Essential (primary) hypertension ms3 Forms: - Medication Reconciliation Form ms3 - SBAR form ms3 Signatures: Dispatcher [employer] EDMya Elliott RN RN mw Kaylie Gamble Davis Gonzales, DO HERNADEZ ms3 Katlyn Adams tw5 Nichelle Cid RN RN ke1 Lida Chau PA-C PAShelbie sb4 Corrections: (The following items were deleted from the chart) 05:42 04:49 Telemetry/MedSurg (observation) ms3 mw 05:42 04:49 ms3 mw 13:28 05:42 [facility] ER HOLD mw eb 13:28 05:42 ERHOLD- mw eb
--- NOTE | 2022-08-24 05:12 | P.HP ---
Certification for Inpatient Patient admitted to: Observation With expected LOS: <2 Midnights Patient will require the following post-hospital care: None Practitioner: I am a practitioner with admitting privileges, knowledge of patient current condition, hospital course, and medical plan of care. Services: Services provided to patient in accordance with Admission requirements found in Title 42 Section 412.3 of the Code of Federal Regulations Patient History Date of Service: 08/24/22 Reason for admission: Chest Pain History of Present Illness: Patient is a 67 year old female with past medical history of hypertension, hyperlipidemia, and borderline type 2 diabetes who presented to the ED with complaints of chest pain. She reports that the pain began yesterday and was initially sharp but is now a constant dull sensation with intermittent sharp pains. She reports associated shortness of breath and nausea. Denies diaphoresis or any radiation. Denies alleviating or aggravating factors. Her EKG showed sinus manuel. Troponin negative. Labs are unremarkable except for an elevated ddimer of 783. Chest CTA negative. She was given 324 mg aspirin in the ED. ED provider wishes to admit patient for observation, ACS rule out. Allergies No Known Allergies Allergy (Verified 07/17/21 14:48) Home medications list reviewed: Yes Home Medications: Amlodipine Besylate 10 mg PO DAILY 07/04/21 Metformin HCl [Glucophage*] 500 mg PO BIDWM 07/04/21 Rosuvastatin [Crestor*] 10 mg PO DAILY 07/04/21 Hydrocodone 7.5/APAP 325 [[place] 7.5/325 mg*] 1 tab PO Q4H PRN tab 07/18/21 - Past Medical/Surgical History Diabetic: Yes -: Hypertension -: Type 2 Diabetes, Non-Insulin Dependent -: Arthritis -: Lap Band -: Knee -: Shoulder Psychosocial/ Personal History: Patient lives at home with family. - Family History Family History: Reviewed- Non-Contributory - Social History Smoking Status: Never smoker Alcohol use: No CD- Drugs: No Caffeine use: Yes Place of Residence: Home Physical Examination - Vital Signs Temperature: 98.2 F Blood Pressure: 145/80 Pulse: 64 Respirations: 16 Pulse Ox (%): 97 (room air) - Physical Exam General: Alert, In no apparent distress HEENT: Atraumatic, PERRLA, EOMI, Sclerae nonicteric Neck: Supple, 2+ carotid pulse no bruit, No LAD, Without JVD or thyroid abnormality Respiratory: Clear to auscultation bilaterally, Normal air movement Cardiovascular: Regular rate/rhythm, Normal S1 S2 Gastrointestinal: Normal bowel sounds, No tenderness Musculoskeletal: No tenderness Integumentary: No rashes Neurological: Normal speech, Normal strength at 5/5 x4 extr, Normal tone, Normal affect - Studies Laboratory Data (last 24 hrs) 08/24/22 02:38: WBC 6.60, Hgb 12.4, Hct 37.5, Plt Count 230 08/24/22 02:38: Sodium 136, Potassium 3.8, BUN 12, Creatinine 0.63, Glucose 125 H, Magnesium 2.2 Assessment and Plan - Problems (Diagnosis) (1) Chest pain Current Visit: Yes Status: Acute Qualifiers: Chest pain type: unspecified Qualified Code(s): R07.9 - Chest pain, unspecified (2) Hypertension Current Visit: Yes Status: Chronic Qualifiers: Hypertension type: primary hypertension Qualified Code(s): I10 - Essential (primary) hypertension (3) Type 2 diabetes mellitus Current Visit: Yes Status: Chronic Qualifiers: Diabetes mellitus long-term insulin use: without buttermaker helper use Diabetes mellitus complication status: with hyperglycemia Qualified Code(s): E11.65 - Type 2 diabetes mellitus with hyperglycemia - Plan Patient is admitted for observation. Initial troponin negative. Trend. Cardiology consult. Echo ordered. Monitor on telemetry. Nitro PRN chest pain. Lipid panel and TSH ordered. Aspirin and atorvastatin daily. Monitor and replete electrolytes per protocol. Reconcile and continue home medications. Lovenox for VTE prophylaxis. Full code Discharge Plan: Home Plan to discharge in: 24 Hours - Advance Directives Does patient have a Living Will: No Does patient have a Durable POA for Healthcare: No - Code Status/Comfort Care Code Status Assessed: Yes Code Status: Full Code Physician Review: Patient Assessed, Agree with Above Assessment and Plan Critical Care: No Time Spent Managing Pts Care (In Minutes): 50
[2022-08-24 05:44] LABS: SARS-CoV-2 Antigen Rapid Res Negative (Negative)
[2022-08-24] MEDS ORDERED: ONDANSETRON 4 MG/2 ML VIAL IV PRN (06:22)
[2022-08-24] MEDS ORDERED: NITROGLYCERIN 0.4 MG/TAB SL PRN (06:22)
[2022-08-24] MEDS ORDERED: ACETAMINOPHEN 325 MG TABLET PO PRN (06:23)
[2022-08-24 06:31] VITALS: BMI 57.5
[2022-08-24 06:56] LABS: Thyroid Stimulating Hormone 4.48 uIU/mL (0.360-3.740)
[2022-08-24] MEDS: ENOXAPARIN 40 MG/0.4 ML SQ SCH (09:00)
[2022-08-24] MEDS: ASPIRIN EC 81 MG TAB PO SCH (09:00)
[2022-08-24] MEDS ORDERED: ASPIRIN EC 81 MG TAB PO ONE (09:58)
[2022-08-24] MEDS ORDERED: ENOXAPARIN 40 MG/0.4 ML SQ ONE (09:59)
[2022-08-24] MEDS ORDERED: ACETAMINOPHEN 325 MG TABLET ONE (11:11)
[2022-08-24] MEDS ORDERED: MORPHINE 2 MG/ML SYR IV PRN (15:17)
[2022-08-24 16:37] LABS: Specific Gravity 1.029 (1.005-1.030); Urine Bilirubin NEGATIVE (Negative); Urine Blood Negative (Negative); Urine Clarity Clear (Clear); Urine Color Light-Yellow (Yellow); Urine Glucose NEGATIVE (Negative); Urine Protein NEGATIVE (Negative); Urine Urobilinogen Normal (Normal); Urine pH 6.5 (5.0-7.0)
[2022-08-24] MEDS ORDERED: ATORVASTATIN 40 MG TAB PO SCH (21:00)
[2022-08-24] MEDS ORDERED: ALPRAZOLAM 0.25 MG TABLET PO PRN (21:54)
[2022-08-25 06:06] LABS: Absolute Lymphocytes (CBC) 1.6 K/uL (0.7-4.9); Hematocrit 36.6 % (36.0-45.0); Lymphocytes % 29.4 % (15.3-44.8); MCV 88.7 fL (80-100); MPV 7.7 fL (7.6-11.3); RBC Red Blood Cell Count 4.13 M/uL (3.86-4.86)
[2022-08-25 06:38] LABS: Magnesium 2.2 mg/dL (1.8-2.4); Phosphorus 3.8 mg/dL (2.5-4.9); Potassium 3.8 mmol/L (3.5-5.1)
[2022-08-25] MEDS: ENOXAPARIN 40 MG/0.4 ML SQ SCH (08:59)
[2022-08-25] MEDS: ASPIRIN EC 81 MG TAB PO SCH (08:59)
[2022-08-25] MEDS ORDERED: POTASSIUM CL SA 10 MEQ TAB PO ONE (09:00)
[2022-08-25] MEDS ORDERED: NA CHLORIDE 0.9% 500 ML ONE (09:25)
[2022-08-25] MEDS ORDERED: HEPA 1000U/500MLS 1,000 UNIT/500 ML BAG IV ONE (09:33)
[2022-08-25] MEDS ORDERED: LIDOCAINE 1% 20 ML MDV ONE (09:33)
[2022-08-25] MEDS ORDERED: FENTANYL CITR 100 MCG/2 ML ONE (09:50)
[2022-08-25] MEDS ORDERED: ATROPINE SULF 1 MG/10 ML SYR IV ONE (09:51)
[2022-08-25] MEDS ORDERED: MIDAZOLAM HCL 2 MG/2 ML INJ ONE (09:51)
[2022-08-25] MEDS ORDERED: NA CHLORIDE 0.9% 0 ML IV ONE (09:51)
--- NOTE | 2022-08-25 13:08 | P.DS ---
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 She reported initial sharp chest pain that was followed by a constant dull sensation with intermittent sharp pains. She reported associated shortness of breath and nausea. Her EKG showed sinus manuel. Troponin negative. Labs were unremarkable except for an elevated d-dimer of 783. Chest CTA negative for pulmonary embolus. She was given 324 mg aspirin in the ED. Patient was hospitalized for further management. Hospital Course: Patient placed under observation on the medical floor. Troponin trended negative. He was seen in consultation by cardiology-Dr. Byrne who performed cardiac catheterization, patient noted to have normal coronary arteries. She follows with Cardiolody Dr. Hopkins at [place]. Echocardiogram was retrieved from Dr Hopkins's office which appeared unremarkable. ACS ruled out. Patient deemed clinically stable for discharge. Vital Signs/Physical Exam: Temp Pulse Resp BP Pulse Ox 96.8 F 59 16 141/66 H 96 08/25/22 12:00 08/25/22 12:00 08/25/22 12:00 08/25/22 12:00 08/25/22 12:00 General: Alert, In no apparent distress, Oriented x3 HEENT: Mucous membr. moist/pink Neck: JVD not distended Respiratory: Clear to auscultation bilaterally, Normal air movement Cardiovascular: No edema, Regular rate/rhythm, Normal S1 S2 Gastrointestinal: Normal bowel sounds, Soft and benign, Non-distended Musculoskeletal: No swelling Integumentary: No rashes, No cyanosis Neurological: Normal strength at 5/5 x4 extr Laboratory Data at Discharge: WBC 5.60 K/uL (4.3-10.9) 08/25/22 05:58 Hgb 12.1 g/dL (12.0-15.0) 08/25/22 05:58 Hct 36.6 % (36.0-45.0) 08/25/22 05:58 Plt Count 201 K/uL (152-406) 08/25/22 05:58 Sodium 138 mmol/L (136-145) 08/25/22 05:58 Potassium 3.8 mmol/L (3.5-5.1) 08/25/22 05:58 BUN 11 mg/dL (7-18) 08/25/22 05:58 Creatinine 0.53 mg/dL (0.55-1.3) L 08/25/22 05:58 Glucose 120 mg/dL (74-106) H 08/25/22 05:58 Phosphorus 3.8 mg/dL (2.5-4.9) 08/25/22 05:58 Magnesium 2.2 mg/dL (1.8-2.4) 08/25/22 05:58 Triglycerides 113 mg/dL (<150) 08/24/22 02:38 Cholesterol 145 mg/dL (<200) 08/24/22 02:38 HDL Cholesterol 51 mg/dL (40-60) 08/24/22 02:38 Cholesterol/HDL Ratio 2.84 08/24/22 02:38 Home Medications: Amlodipine Besylate 10 mg PO DAILY 07/04/21 Metformin HCl [Glucophage*] 500 mg PO BIDWM 07/04/21 Rosuvastatin [Crestor*] 10 mg PO DAILY 07/04/21 Hydrocodone 7.5/APAP 325 [[place] 7.5/325 mg*] 1 tab PO Q4H PRN tab 07/18/21 Aspirin [Aspirin EC 81 MG] 81 mg PO DAILY #30 tab 08/25/22 New Medications: Aspirin [Aspirin EC 81 MG] 81 mg PO DAILY #30 tab Diet: ADA Activity: Ad emma Followup: NONE,NONE [Primary Care Provider] - 1-2 Weeks
[2022-08-25 13:26] VITALS: BP 141/78; TEMP 96.9; O2SAT 94
--- NOTE | 2022-08-25 13:49 | EKG ---
Test Date: 2022-08-24 Test Time: 02:29:58 Kineseologist: LEANDRA MEASUREMENT RESULTS: Intervals: Rate: 57 FL: 156 QRSD: 82 QT: 444 QTc: 432 [place]: P: 44 FL: 156 QRS: 5 T: 41 INTERPRETIVE STATEMENTS: Sinus bradycardia Otherwise normal ECG Compared to ECG 07/18/2021 00:57:23 No significant changes Electronically Signed On 08-25-22 13:46:58 HEAD SCHOOL CUSTODIAN by José Baxter
--- NOTE | 2022-08-25 14:12 | RAD REPORT ---
EXAM DESCRIPTION: RAD - Chest Single View - 08/24/2022 2:49 am CLINICAL HISTORY: The patient is 67 years old and is Female; CHEST PAIN TECHNIQUE: Frontal view of the chest. COMPARISON: No relevant prior studies available. FINDINGS: Lungs: Unremarkable. No consolidation. Pleural space: Unremarkable. No pneumothorax. Heart: Unremarkable. Mediastinum: Unremarkable. Bones/joints: Unremarkable. IMPRESSION: No acute findings in the chest. Electronically signed by: Nathan Minor MD 08/24/2022 2:57 AM INTERNAL INVESTIGATOR Due to temporary technical issues with the PACS/Fluency reporting system, reports are being signed by the in house radiologists without review as a courtesy to insure prompt reporting. The interpreting radiologist is fully responsible for the content of the report.
--- NOTE | 2022-08-25 14:13 | RAD REPORT ---
EXAM DESCRIPTION: CT - Chest Angio - 08/24/2022 6:53 am CLINICAL HISTORY: The patient is 67 years old and is Female; chest pain, elevated d-dimer TECHNIQUE: Axial computed tomographic angiography images of the chest with intravenous contrast. S agittal and coronal reformatted images were created and reviewed. This CT exam was performed using one or more of the following dose reduction techniques: automated exposure control, adjustment of t he mA and/or kV according to patient size, and/or use of iterative reconstruction technique. MIP re constructed images were created and reviewed. COMPARISON: No relevant prior studies available. FINDINGS: Pulmonary arteries: No evidence of pulmonary embolism. Evaluation limited by suboptimal contrast bolus within the pulmonary artery. Aorta: Scattered atherosclerotic vascular calcifications. No thoracic aortic aneurysm. Lungs: Unremarkable. No mass. No consolidation. Pleural space: Unremarkable. No significant effusion. No pneumothorax. Heart: Unremarkable. No cardiomegaly. No significant pericardial effusion. No evidence of R V dysfunction. Mediastinum: Small hiatal hernia. Bones/joints: No acute fracture. No dislocation. Soft tissues: Unremarkable. Lymph nodes: Unremarkable. No enlarged lymph nodes. Gallbladder and bile ducts: Gallbladder is likely surgically absent. Stomach and bowel: Postsurgical changes in the stomach. IMPRESSION: No acute finding in the chest. No evidence of pulmonary embolism. Electronically signed by: Nathan Minor MD 08/24/2022 4:30 AM MARKET RESEARCH ASSISTANT Due to temporary technical issues with the PACS/Fluency reporting system, reports are being signed by the in house radiologists without review as a courtesy to insure prompt reporting. The interpreting radiologist is fully responsible for the content of the report.
--- NOTE | 2022-08-25 16:06 | CON ---
Date of Consultation: 08/24/2022 Reason For Consultation: Unstable angina. History Of Present Illness: Ms. Martinez is a 67-year-old Latin-French woman with a history of hyper tension, dyslipidemia, and diabetes. Has been having shortness of breath and chest pain, presumably had a stress test and an echocardiogram at Dr. Hopkins's office. Results are still pending. She comes b ack to the emergency room with substernal chest pressure radiating to the left arm with shortness of breath and diaphoresis. MT has been ruled out. D-dimer was [address] angiogram for pul monary embolus. EKG is unremarkable. The patient continues to have chest pain with and without exer tion. Past Medical History: As stated above. Allergies: NONE. Review of Systems: Negative. Social History: Negative. Family History: Negative. Medications: At home include Crestor, metformin, and Norvasc. Physical Examination: General: Very pleasant lady, no acute distress. Vital Signs: Stable, afebrile. HEENT: Negative. Neck: Supple with no bruit, lymphadenopathy, JVD, or thyromegaly. Chest: Clear to auscultation and percussion. Cardiac: Revealed a regular rhythm and rate. No murmurs, gallops, or rubs. Abdomen: Benign. Extremities: Revealed no clubbing, cyanosis, or edema. Diagnostic Data: As stated earlier. Impression And Plan: The patient with many risk factors for heart disease including hypertension, di abetes, dyslipidemia. Had symptoms suggestive of coronary artery disease, shortness of breath. We w ill plan a left heart catheterization on her to define her coronary anatomy on 08/25/2022. The patie nt understands the risk and the benefits of the procedure and she agrees to proceed. We will contact Dr. Hopkins later after the catheterization to give him the results. Meanwhile, continue her Crestor, m etformin, and Norvasc. She is also on Lovenox. We will hold that before the catheterization. SVEN/ADRIANNA Voice ID: [id number] Report ID: [id number]
--- NOTE | 2022-08-25 18:36 | OP ---
Date of Procedure: 08/25/2022 Surgeon: Hernandez Byrne MD Collar Baster Jumpbasting: Ms. Jessica Bolton. Admitted to Dr. Tello with unstable angina on 08/24/2022. Brought to the cardiac cath lab manager today on 08/25/20 22, underwent a left heart catheterization, selective coronary arteriogram, common femoral artery ang iogram. Indication: Unstable angina. Procedure In Detail: The patient in the cardiac cath lab manager was prepped and draped in the routine sterile fashi on. Given Versed and fentanyl for sedation. A 6-[place] sheath introduced in the right common femora l artery successfully using 10 cc of Xylocaine and Seldinger technique. Angiography there was normal . Angio-Seal was used to close the case. Kris catheter left and right were used to do the diagno stic catheterization. She was found to have perfectly normal coronaries. There were no complication s. Blood Loss: 5 cc. Postoperative Diagnoses: Chest pain, normal coronaries. Plan: Plan is for medical therapy. Anesthesia: Total conscious sedation 30 minutes. The patient can go home today after 2 hours after the procedure. She will follow up with us or with her retail office manager in [place] in about 2 weeks. SVEN/ADRIANNA Voice ID: [id number] Report ID: [id number]
--- NOTE | 2022-08-26 09:43 | ECHO ---
HEIGHT: 4 ft 5 in WEIGHT: 230 lb 0.132 oz DATE OF STUDY: 08/25/[address]: Lida Chau 2-DIMENSIONAL: YES M.MODE: YES DOPPLER: YES COLOR FLOW: YES TDS: YES PORTABLE: YES DEFINITY: NO BUBBLE STUDY: NO DIAGNOSIS: CHEST PAIN CARDIAC HISTORY: CATHERIZATION: YES SURGERY: NO PROSTHETIC VALVE: NO PACEMAKER: NO MEASUREMENTS (cm) DIASTOLIC (NORMALS) SYSTOLIC (NORMALS) IVSd 1.1 (0.6-1.2) LA Diam 2.8 (1.9-4.0) LVEF 55-60% LVIDd 4.2 (3.5-5.7) LVIDs 3.1 (2.0-3.5) %FS 27% LVPWd 1.1 (0.6-1.2) Ao Diam 2.4 (2.0-3.7) 2 DIMENSIONAL ASSESSMENT: RIGHT ATRIUM: NORMAL LEFT ATRIUM: NORMAL RIGHT VENTRICLE: NORMAL LEFT VENTRICLE: NORMAL TRICUSPID VALVE: TRACE OF TRICUSPID REGURGITATION MITRAL VALVE: NORMAL PULMONIC VALVE: NORMAL AORTIC VALVE: NORMAL PERICARDIAL EFFUSION: NONE AORTIC ROOT: NORMAL LEFT VENTRICULAR WALL MOTION: NORMAL. DOPPLER/COLOR FLOW: TRACE OF TRICUSPID REGURGITATION/ MITRAL REGURGITATION. COMMENTS: 1. NORMAL LEFT VENTRICULAR EJECTION FRACTION 55-60%. 2. NORMAL WALL MOTION. 3. NORMAL DIASTOLIC FUNCTION. 4. TRACE OF TRICUSPID REGURGITATION/ MITRAL REGURGITATION. TECHNOLOGIST: RICHARD GUZMAN
== END 2022-08-25 15:33 | disposition home or self-care (01) ==
LOC: ER 02:09 → ERHOLD 05:07 → 2ND 14:01
PROVIDERS: ADMIT Internal Medicine; ATTEND Internal Medicine
DX: R07.9 Chest pain, unspecified (principal); I10 Essential (primary) hypertension; E11.65 Type 2 diabetes mellitus with hyperglycemia; R06.02 Shortness of breath; R11.0 Nausea; E78.5 Hyperlipidemia, unspecified; M19.90 Unspecified osteoarthritis, unspecified site; Z79.84 Long term (current) use of oral hypoglycemic drugs; Z79.899 Other long term (current) drug therapy; Z20.822 Contact with and (suspected) exposure to COVID-19
CPT/HCPCS: 36415; 71045; 71275; 80048; 80061; 81003; 82947; 83735; 83880; 84100; 84439; 84443; 84484; 85025; 85379; 87811; 93005; 93306; 93454; 99285; C1760; C1893; G0269; G0378; J0461; J0583; J1644; J1650; J2250; J2270; J3010; J7040; Q9966; Q9967

== ENCOUNTER 2023-02-04 12:34 | Emergency (ER) | payer OTHER ==
--- OUTSIDE RECORDS SUMMARY | 2023-02-04 12:59 | XMS REPORT | Continuity of Care Document ---
:1955 Author Organization [facility] t Address [address] [facility] [address] [place] [address] Care Team Providers Name Role Phone Melanie Simmons Primary Care Physician Chino Bishop Attending Clinician Unavailable Bob Attending Clinician Unavailable Kahlil Ruelas MD Attending Clinician KAHLIL RUELAS Attending Clinician Unavailable Doctor Unassigned, [place] Attending Clinician Unavailable MICHAELA TOWNSEND Attending Clinician Unavailable Bob Admitting Clinician Unavailable KAHLIL RUELAS Admitting Clinician Unavailable MICHAELA TOWNSEND Admitting Clinician Unavailable Payers Payer Name Policy Type Policy Number Effective Date Expiration Date Everett munoz [facility] MEDICARE [id number] COMPLETE (MEDICARE REPLACEMENT HMO) Ambetter from [id number] 2021-03-21 2021-09-20 [facility] 00:00:00 00:00:00 Spirit - [facility] Plan [facility] Ambetter from [id number] Common [facility] - [facility] Plan [facility] Ambetter from [id number] Common [facility] - [facility] Plan [facility] Ambetter from [id number] Common [facility] - CHI Plan [facility] Ambetter from [id number] Common [facility] - [facility] Plan [facility] Ambetter from [id number] Common [facility] - [facility] Plan [facility] Ambetter from [id number] Common [facility] - [facility]I Plan [facility] Ambetter from [id number] Common [facility] Plan [facility] Ambetter from [id number] Common [facility] Plan [facility] Ambetter from [id number] [facility] Plan [facility] Ambetter from [id number] Common [facility] - CHI Plan [facility] Ambetter from [id number] Common [facility] - [facility] Plan [facility] Ambetter from [id number] [facility] Plan [facility] Ambetter from [id number] [facility] Ambetter from [id number] [facility] Plan [facility] Ambetter from [id number] [facility] Plan [facility] Ambetter from [id number] [facility] Problems Condition Condition Condition Status Onset Resolution Last Treating Co mments Source Name Details Category Date Date Treatment Clinician Date Pain of Pain of Problem Active Ngoc right knee Right Knee - Or thope joint Joint 00:00: dic 00 Sports Medicin e No known No known Disease Unive rs active active ity of problems problems [facility] [id number] Primary Problem Comm on osteoarthr Spirit itis of [facility] right knee [facility] Arthritis Arthritis Problem Com mon of right of knee, Spirit knee right - CHI [facility] [id number] Pre-op Problem Common testing [facility] [id number] COVID-19 Problem Comm on Spirit - CHI [facility] [id number] 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 [facility] [id number] 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 [facility] Allergies, Adverse Reactions, Alerts Allergy Allergy Status Severity Reaction(s) Onset Inactive Treating Comm ents Source Name Type Date Date Clinician Codeine Allergy Active Ngoc to 03-12 Orthope substanc 00:00: dic e 00 Sports Medicin e Mesna - Propensi Active Intraven ty to 03-12 ous adverse 00:00: reaction 00 to drug Hydrocod Allergy Active Itching Ngoc one to 10-22 Orthope substanc 00:00: dic e 00 Sports Medicin e HYDROCOD DRUG Active ITCHING Univers ONE INGREDI 2 ity of 00:00: [place] 00 Medical Branch Hydrocod Propensi Active Itching Unive rs one ty to 10-22 ity of adverse 00:00: [place] reaction 00 Medical s Branch Codeine Allergy Active Ngoc to 615 Orthope substanc 00:00: dic e 00 Sports Medicin e Hydrocod Propensi Active one ty to 6-15 adverse 00:00: reaction 00 to drug Social History Social Habit Start Date Stop Date Quantity Comments Source History of Common Spirit - Tobacco Use [facility] Exposure to 2022-08-11 2022-08-21 [facility] [place] [facility] Tobacco use and 2022-07-30 2022-07-30 Smokeless tobacco Un iversity of exposure 00:00:00 00:00:00 non-user [facility] Sex Ass[birth year] Universit y of 00:00:00 00:00:00 [facility] Smoking Status Start Date Stop Date Source Tobacco smoking [facility] Never smoked tobacco [facility] Medications Ordered Filled Start Stop Current Ordering Indication Dosage Frequency Signature Comments Components Source Medication Medication Date Date Medication? Clinician (SIG) Name Name Clark Braden Eileenrony 145 2021-09 No Linzess [facility]oc mcg capsule mcg capsule 2-12 145 mcg Orthope TAKE 1 TAKE 1 00:00: capsule dic CAPSULE BY CAPSULE BY 00 TAKE 1 S ports MOUTH DAILY MOUTH DAILY CAPSULE BY Medicin MOUTH e DAILY Macrobid Macrobid 2021-09 No Macrobid A zalea 100 mg 100 mg 2-12 100 mg Orthope capsule capsule 00:00: capsule dic TAKE 1 TAKE 1 00 TAKE 1 Sports CAPSULE BY CAPSULE BY CAPSULE BY Medicin MOUTH TWICE MOUTH TWICE MOUTH e DAILY DAILY TWICE DAILY metformin metformin 2021-09 No metformin Ngoc 500 mg 500 mg 2-12 500 mg Orthope tablet TAKE tablet TAKE 00:00: tablet dic 1 TABLET BY 1 TABLET BY 00 TAKE 1 Sports MOUTH DAILY MOUTH DAILY TABLET BY Medicin MOUTH e DAILY rosuvastati rosuvastati 2021-09 No rosuvastat Ngoc n 10 mg n 10 mg 2-12 in 10 mg Ortho pe tablet TAKE tablet TAKE 00:00: tablet dic 1 TABLET BY 1 TABLET BY 00 TAKE 1 Sports MOUTH DAILY MOUTH DAILY TABLET BY Medicin MOUTH e DAILY Xarelto 10 Xarelto 10 2021-09 No Xarelto 10 Ngoc mg tablet mg tablet 2-12 mg tablet Orthope 00:00: dic 00 Sports Medicin e Dose 2021-09 No Unknown 2-12 00:00: 00 Dose 2021-09 No Unknown 2-12 00:00: 00 Dose 2021-09 No Unknown 2-12 00:00: 00 Dose 2021-09 No 100 Unknown 2-12 00:00: 00 TAKE 1 2021-09 No TABLET BY 2-12 MOUTH EVERY 00:00: 6 HOURS 00 NEEDED FOR PAIN 8 DAYS Dose 2021-09 No Unknown 2-12 00:00: 00 Dose 2021-09 No Unknown 2-12 00:00: 00 TAKE 1 2021-09 No 10 TABLET BY 2-12 MOUTH DAILY 00:00: 00 Dose 2021-09 No Unknown 2-12 00:00: 00 Dose 2021-09 No Unknown 2-12 00:00: 00 TAKE 1 2021-09 No 20 TABLET 2-12 DAILY. 00:00: 00 Dose 2021-09 No Unknown 2-12 00:00: 00 TAKE 1 2021-09 No 100 TABLET BY 2-12 MOUTH DAILY 00:00: 00 TAKE 1 2021-09 No 100 CAPSULE BY 2-12 MOUTH TWICE 00:00: DAILY 00 TAKE 1 2021-09 No 800 TABLET BY 2-12 MOUTH THREE 00:00: TIMES DAILY 00 NEEDED TAKE 2021-09 No 10 TABLET BY 2-12 MOUTH ONCE 00:00: A DAY WITH 00 FOOD FOR 11 DAYS TAKE BY 2021-09 No MOUTH 1 2-12 TABLET 00:00: EVERY 4 TO 00 6 HOURS NEEDED FOR PAIN TAKE 2021-09 No 25 TABLET BY 2-12 MOUTH EVERY 00:00: 6 TO 8 00 HOURS Dose 2021-09 No Unknown 2-12 00:00: 00 TAKE 1 2021-09 No 50 TABLET BY 2-12 MOUTH EVERY 00:00: 6 HOURS 00 NEEDED FOR PAIN TAKE 2021-09 No CAPSULE BY 2-12 MOUTH DAILY 00:00: 00 Dose 2021-09 No Unknown 2-12 00:00: 00 Dose 2021-09 No Unknown 2-12 00:00: 00 Dose 2021-09 No Unknown 2-12 00:00: 00 Dose 2021-09 No 100 Unknown 2-12 00:00: 00 TAKE 1 2021-09 No TABLET BY 2-12 MOUTH EVERY 00:00: 6 HOURS 00 NEEDED FOR PAIN 8 DAYS Dose 2021-09 No Unknown 2-12 00:00: 00 Dose 2021-09 No Unknown 2-12 00:00: 00 TAKE 2021-09 No 10 TABLET BY 2-12 MOUTH DAILY 00:00: 00 Dose 2021-09 No Unknown 2-12 00:00: 00 Dose 2021-09 No Unknown 2-12 00:00: 00 TAKE 2021-09 No 20 TABLET 2-12 DAILY. 00:00: 00 Dose 2021-09 No Unknown 2-12 00:00: 00 TAKE 2021-09 No 100 TABLET BY 2-12 MOUTH DAILY 00:00: 00 TAKE 1 2021-09 No 100 CAPSULE BY 2-12 MOUTH TWICE 00:00: DAILY 00 TAKE 2021-09 No 800 TABLET BY 2-12 MOUTH THREE 00:00: TIMES DAILY 00 NEEDED TAKE 2021-09 No 10 TABLET BY 2-12 MOUTH ONCE 00:00: A DAY WITH 00 FOOD FOR 11 DAYS TAKE BY 2021-09 No MOUTH 1 2-12 TABLET 00:00: EVERY 4 TO 00 6 HOURS NEEDED FOR PAIN TAKE 2021-09 No 25 TABLET BY 2-12 MOUTH EVERY 00:00: 6 TO 8 00 HOURS Dose 2021-09 No Unknown 2-12 00:00: 00 TAKE 2021-09 No 50 TABLET BY 2-12 MOUTH EVERY 00:00: 6 HOURS 00 NEEDED FOR PAIN TAKE 2021-09 No CAPSULE BY 2-12 MOUTH DAILY 00:00: 00 amLODIPine 2021-09 Yes 5mg Take 5 mg Un [place] 5 mg tablet 1-09 by mouth ity of 13:48: in the [place] [address] morning. Medical Branch metFORMIN 2021-09 Yes 500mg Take 500 Uni vers 500 mg 1-09 mg by ity of tablet 13:48: mouth in [place] [address] the Medical morning. Branch rosuvastati 2021-09 Yes 20mg Take 20 mg Univers n 20 mg 1-09 by mouth ity of tablet 13:48: at [place] [address] bedtime. Medical Branch amLODIPine 2021-09 Yes 5mg Take 5 mg Un [place] 5 mg tablet 1-09 by mouth ity of 13:48: in the [place] [address] morning. Medical Branch metFORMIN 2021-09 Yes 500mg Take 500 Uni vers 500 mg 1-09 mg by ity of tablet 13:48: mouth in [place] [address] the [facility] morning. Branch rosuvastati 2021-09 Yes 20mg Take 20 mg Univers n 20 mg 1-09 by mouth ity of tablet 13:48: at [place] [address] bedtime. Medical Branch amLODIPine 2021-09 Yes 5mg Take 5 mg Un [place] 5 mg tablet 1-09 by mouth ity of 13:48: in the [place] [address] morning. Medical Branch metFORMIN 2021- Yes 500mg Take 500 Uni vers 500 mg 1-09 mg by ity of tablet 13:48: mouth in [place] [address] the [facility] morning. Branch rosuvastati 2021-09 Yes 20mg Take 20 mg Univers n 20 mg 1-09 by mouth ity of tablet 13:48: at [place] [address] bedtime. Medical Branch amLODIPine 2021-09 Yes 5mg Take 5 mg Un [place] 5 mg tablet 1-09 by mouth ity of 13:48: in the [place] [address] morning. Medical Branch metFORMIN 2021- Yes 500mg Take 500 Uni vers 500 mg 1-09 mg by ity of tablet 13:48: mouth in [place] [address] the Medical morning. Branch rosuvastati 2021-09 Yes 20mg Take 20 mg Univers n 20 mg 1-09 by mouth ity of tablet 13:48: at [place] [address] bedtime. Medical Branch amLODIPine 2021-09 Yes 5mg Take 5 mg Un [place] 5 mg tablet 1-09 by mouth ity of 13:48: in the [place] [address] morning. Medical Branch metFORMIN 2021-09 Yes 500mg Take 500 Uni vers 500 mg 1-09 mg by ity of tablet 13:48: mouth in [place] [address] the Medical morning. Branch rosuvastati 2021-09 Yes 20mg Take 20 mg Univers n 20 mg 1-09 by mouth ity of tablet 13:48: at [place] [address] bedtime. Medical Branch amLODIPine 2021-09 Yes 5mg Take 5 mg Un [place] 5 mg tablet 1-09 by mouth ity of 13:48: in the [place] [address] morning. Medical Branch metFORMIN 2021-09 Yes 500mg Take 500 Uni vers 500 mg 1-09 mg by ity of tablet 13:48: mouth in [place] [address] the [facility] morning. Branch rosuvastati 2021-09 Yes 20mg Take 20 mg Univers n 20 mg 1-09 by mouth ity of tablet 13:48: at [place] [address] bedtime. Medical Branch TAKE 1 2022-0 No CAPSULE BY 9-02 MOUTH TWICE 00:00: A DAY FOR 30 DAYS TAKE 1 2022-0 No CAPSULE BY 9-02 MOUTH TWICE 00:00: A DAY FOR 30 DAYS TAKE 1 2022-0 No CAPSULE BY 9-02 MOUTH TWICE 00:00: A DAY FOR 30 DAYS TAKE 1 2022-0 No CAPSULE BY 9-02 MOUTH TWICE 00:00: A DAY FOR 30 DAYS TAKE 1 2022-0 No CAPSULE BY 9-02 MOUTH TWICE 00:00: A DAY FOR 30 DAYS TAKE 1 2022-0 No 5 TABLET 8-01 DAILY. 00:00: 00 TAKE 1 2022-0 No 5 TABLET 8-01 DAILY. 00:00: 00 TAKE 1 2022-0 No 5 TABLET 8-01 DAILY. 00:00: 00 TAKE 1 2022-0 No 5 TABLET 8-01 DAILY. 00:00: 00 TAKE 1 2022-0 No 5 TABLET 8-01 DAILY. 00:00: 00 TAKE 1 2022-0 No [...] No 5 TABLET 6-30 DAILY. 00:00: 00 gabapentin gabapentin 2022-0 No gabapentin Ngoc 300 mg 300 mg 6-22 300 mg Orthope capsule capsule 00:00: capsule dic TAKE 1 TAKE 1 00 TAKE 1 Sports CAPSULE BY CAPSULE BY CAPSULE BY Medicin MOUTH TWICE MOUTH TWICE MOUTH e DAILY DAILY TWICE DAILY trazodone 2022-0 No 1mg 100 mg 6-22 [...] 5 mg tablet 4-19 00:00: 00 ibuprofen ibuprofen 2022-0 No 1mg ibuprofen Ngoc 800 mg 800 mg 3-22 800 mg Orthope tablet 1 mg tablet 1 mg 00:00: tablet 1 dic by oral by oral 00 mg by oral Spo rts route. route. route. Medicin e ibuprofen 2022-0 No 1mg 800 mg 3-22 [...] 100 mg 3-22 capsule 00:00: 00 Dose 2-0 No Unknown 3-22 [...] 2022-0 No Unknown 3-22 00:00: 00 ibuprofen 2-0 No 1mg 800 mg 3-22 tablet 00:00: 00 Macrobid 2-0 No 1mg 100 mg 3-22 capsule 00:00: 00 Dose 2-0 No Unknown 3-22 [...] Dose 2022-0 No Unknown 3-22 00:00: 00 gabapentin gabapentin 2021-0 No 1{capsu TID gabapentin Ngoc 100 mg 100 mg 2- le} 100 mg Orthope capsule 1 capsule 1 00:00: capsule 1 dic {capsule} 3 {capsule} 3 00 {capsule} Sports times a day times a day 3 times a Medicin by oral by oral day by e route. route. oral route. Gabapentin Gabapentin 2021-0 No 1{capsu TID 100 MG 100 MG 2-01 le} 00:00: 00 Gabapentin Gabapentin 2021-0 No 1{capsu TID Gabapentin 100 MG 100 MG 2-01 le} 100 MG 00:00: 00 Gabapentin Gabapentin 2021-0 No 1{capsu TID Gabapentin 100 MG 100 MG 2-01 le} 100 MG 00:00: 00 Gabapentin Gabapentin 2021-0 No 1{capsu TID Gabapentin 100 MG 100 MG 2-01 le} 100 MG 00:00: 00 Gabapentin Gabapentin 2021-0 No 1{capsu TID Gabapentin 100 MG 100 [...] MG 10-22 le} 100 MG 00:00: 00 hydroxyzine hydroxyzine 2-0 No 1mg hydroxyzin Ngoc HCl 25 mg HCl 25 mg 1-20 e HCl 25 O rthope tablet 1 mg tablet 1 mg 00:00: mg tablet dic by oral by oral 00 1 mg by Sports route. route. oral Medicin route. e trazodone 2-0 No 1mg 100 mg 1-20 tablet 00:00: [...] 100 mg 1-20 tablet 00:00: 00 oxybutynin 2-0 No 1mg chloride ER 1-20 10 mg 00:00: tablet,exte 00 nded release 24 hr hydroxyzine 2-0 No 1mg HCl 25 mg 1-20 tablet 00:00: 00 trazodone 2022-0 No 1mg 100 mg 1-20 tablet 00:00: 00 oxybutynin 2022-0 No 1mg chloride ER 1-20 10 mg 00:00: tablet,exte 00 nded release 24 hr hydroxyzine 2022-0 No 1mg HCl 25 mg 1-20 tablet 00:00: 00 oxybutynin oxybutynin 2022-0 No 1mg oxybutynin Ngoc chloride ER chloride ER 1-20 chloride Orthope 10 mg 10 mg 00:00: ER 10 mg dic tablet,exte tablet,exte 00 tablet,ext Sports nded nded ended Medicin release 24 release 24 release 24 e hr 1 mg by hr 1 mg by hr 1 mg by oral route. oral route. oral route. trazodone trazodone 2022-0 No 1mg trazodone Ngoc 100 mg 100 mg 1-20 100 mg Orthope tablet 1 mg tablet 1 mg 00:00: tablet 1 dic by oral by oral 00 mg by oral Spo rts route. route. route. Medicin e tramadol 50 tramadol 50 2021-0 No 1{table tramadol Ngoc mg tablet 1 mg tablet 1 -11 t_as_ne 50 mg Orthope {tablet_as_ {tablet_as_ 00:00: eded} tablet 1 dic needed} by needed} by 00 {tablet_as Sports oral route. oral route. _needed} Medicin by oral e route. traMADol traMADol 2021-0 No 1{table traMADol HCl 50 MG HCl 50 MG -11 t_as_ne HCl 50 MG 00:00: eded} 00 traMADol traMADol 2021-0 No 1{table traMADol HCl 50 MG HCl 50 MG -11 t_as_ne HCl 50 MG 00:00: eded} 00 traMADol traMADol 2021-0 No 1{table traMADol HCl 50 MG HCl 50 MG -11 t_as_ne HCl 50 MG 00:00: eded} 00 traMADol traMADol 2021-0 No 1{table traMADol HCl 50 MG HCl 50 MG -11 t_as_ne HCl 50 MG 00:00: eded} 00 traMADol traMADol 2021-0 No 1{table HCl 50 MG HCl 50 MG -11 t_as_ne 00:00: eded} 00 traMADol traMADol 2-0 No 1{table traMADol HCl 50 MG HCl 50 MG -11 t_as_ne HCl 50 MG 00:00: eded} 00 traMADol traMADol 2-0 No 1{table traMADol HCl 50 MG HCl 50 MG -11 t_as_ne HCl 50 MG 00:00: eded} 00 traMADol traMADol 2-0 No 1{table traMADol HCl 50 MG HCl 50 MG -11 t_as_ne HCl 50 MG 00:00: eded} 00 traMADol traMADol 2-0 No 1{table traMADol HCl 50 MG HCl 50 MG -11 t_as_ne HCl 50 MG 00:00: eded} 00 [...] 00:00: mL oral 00 syrup Bromfed DM 2020- No 10mg/5 2 mg-30 2-07 mL mg-10 mg/5 00:00: mL oral 00 syrup Bromfed DM 2020- No 10mg/5 2 mg-30 2-07 mL mg-10 mg/5 00:00: mL oral 00 syrup Bromfed DM 2020- No 10mg/5 2 mg-30 2-07 mL mg-10 mg/5 00:00: mL oral 00 syrup Bromfed DM Bromfed DM 2020- No 10mg/5 Bromfed DM Ngoc 2 mg-30 2 mg-30 2-07 mL 2 mg-30 Orthop e mg-10 mg/5 mg-10 mg/5 00:00: mg-10 mg/5 dic mL oral mL oral 00 mL oral Sports syrup 10 syrup 10 syrup 10 Med icin mg/5 mls by mg/5 mls by mg/5 mls e oral route. oral route. by oral route. Gabapentin Gabapentin 2020- No 1{capsu BID Gabapentin 100 MG 100 MG 2-06 le} 100 MG 00:00: 00 Gabapentin Gabapentin 2020-1 No 1{capsu BID Gabapentin 100 MG 100 MG 2-06 le} 100 MG 00:00: 00 Gabapentin Gabapentin 2020-1 No 1{capsu BID Gabapentin 100 MG 100 MG 2-06 le} 100 MG 00:00: 00 Gabapentin Gabapentin 2020-1 No 1{capsu BID Gabapentin 100 MG 100 MG 2-06 le} 100 MG 00:00: 00 Gabapentin Gabapentin 202-1 No 1{capsu BID 100 MG 100 MG 2-06 le} 00:00: 00 Gabapentin Gabapentin 202-1 No 1{capsu BID Gabapentin 100 MG 100 MG 2-06 le} 100 MG 00:00: 00 Gabapentin Gabapentin 2021-1 No 1{capsu BID Gabapentin 100 MG 100 MG 2-06 le} 100 MG 00:00: 00 Gabapentin Gabapentin 2020-1 No 1{capsu BID Gabapentin 100 MG 100 MG 2-06 le} 100 MG 00:00: 00 Gabapentin Gabapentin 2020-1 No 1{capsu BID Gabapentin 100 MG 100 MG 2-06 le} 100 MG 00:00: 00 Gabapentin Gabapentin 202-1 No 1{capsu BID Gabapentin 100 MG 100 MG 2-06 le} 100 MG 00:00: 00 Gabapentin Gabapentin 1-1 No 1{capsu BID Gabapentin 100 MG 100 MG 2-06 le} 100 MG 00:00: 00 Gabapentin Gabapentin 1-1 No 1{capsu BID Gabapentin 100 MG 100 MG 2-06 le} 100 MG 00:00: 00 Gabapentin Gabapentin 2020-1 No 1{capsu BID Gabapentin 100 MG 100 MG 2-06 le} 100 MG 00:00: 00 Gabapentin Gabapentin 1-1 No 1{capsu BID Gabapentin 100 MG 100 MG 2-06 le} 100 MG 00:00: 00 Gabapentin Gabapentin 1-1 No 1{capsu BID Gabapentin 100 MG 100 MG 2-06 le} 100 MG 00:00: 00 Gabapentin Gabapentin 2020-1 No 1{capsu BID Gabapentin 100 MG 100 MG 2-06 le} 100 MG 00:00: 00 Gabapentin Gabapentin 2020-1 No 1{capsu BID Gabapentin 100 MG 100 MG 2-06 le} 100 MG 00:00: 00 Gabapentin Gabapentin 1-1 No 1{capsu BID Gabapentin 100 MG 100 MG 2-06 le} 100 MG 00:00: 00 Gabapentin Gabapentin 2020-1 No 1{capsu BID Gabapentin 100 MG 100 MG 2-06 le} 100 MG 00:00: 00 Gabapentin Gabapentin 1-1 No 1{capsu BID Gabapentin 100 MG 100 MG 2-06 le} 100 MG 00:00: 00 Gabapentin Gabapentin 2020-1 No 1{capsu BID 100 MG 100 MG 2-06 le} 00:00: 00 trazodone 1-1 No 1mg 50 mg 2-02 tablet 00:00: 00 trazodone 2020-1 No 1mg 50 mg 2-02 tablet 00:00: 00 trazodone 1-1 No 1mg 50 mg 2-02 tablet 00:00: 00 trazodone 1-1 No 1mg 50 mg 2-02 tablet 00:00: 00 trazodone 1-1 No 1mg 50 mg 2-02 tablet 00:00: 00 trazodone 1-1 No 1mg 50 mg 2-02 tablet 00:00: 00 trazodone 1-1 No 1mg 50 mg 2-02 tablet 00:00: 00 trazodone trazodone 2020-1 No 1mg trazodone Ngoc 50 mg 50 mg 2-02 50 mg Orthope tablet 1 mg tablet 1 mg 00:00: tablet 1 dic by oral by oral 00 mg by oral Spo rts route. route. route. Medicin e Dose 2020-09 No Unknown 30 00:00: 00 Dose 2020-09 No Unknown 10-20 00:00: 00 doxepin 6 2020-09 No 1mg mg tablet 30 00:00: 00 Dose 2020-09 No Unknown 10-20 00:00: 00 doxepin 6 2020-09 No 1mg mg tablet 30 00:00: 00 Dose 2020-09 No Unknown 30 00:00: 00 Dose 2020-09 No Unknown 10-20 00:00: 00 doxepin 6 doxepin 6 2020-09 No doxepin 6 Ngoc mg tablet mg tablet 1-30 mg tablet Orthope 00:00: dic 00 Sports Medicin e HYDROcodone HYDROcodone 2020-09- No 1{table HYDROcodon -Acetaminop [...] HYDROcodone 2020-09- No 1{table HYDROcodon -Acetaminop -Acetaminop 10-0118 t_as_ne e-Acetamin hen 5-325 hen 5-325 00:00: [...] 20 mg 0-18 tablet 00:00: 00 metformin 2020- No 1mg 500 mg 0-18 tablet 00:00: [...] 20 mg 0-18 tablet 00:00: 00 metformin 2020-09 No 1mg 500 mg 0-18 tablet 00:00: [...] MG MG 00 :00 7.5-325 MG rosuvastati 2021-0 No 1mg n 20 mg [...] 500 mg 2-23 tablet 00:00: 00 rosuvastati 1-0 No 1mg n 20 mg 2-23 tablet 00:00: 00 metformin 2021-0 No 1mg 500 mg 2-23 tablet 00:00: 00 rosuvastati 2021-0 No 1mg n 20 mg 2-23 tablet 00:00: 00 metformin 2021-0 No 1mg 500 mg 2-23 tablet 00:00: 00 metformin 2021-0 No 1mg 500 mg 2-23 tablet 00:00: 00 rosuvastati 1-0 No 1mg n 20 mg 2-23 tablet 00:00: 00 rosuvastati 1-0 No 1mg n 20 mg 2-23 tablet 00:00: 00 metformin 2021-0 No 1mg 500 mg 2-23 tablet 00:00: 00 rosuvastati 2021-0 No 1mg n 20 mg 2-23 tablet 00:00: 00 metformin 2021-0 No 1mg 500 mg 2-23 tablet 00:00: 00 rosuvastati 2021-0 No 1mg n 20 mg 2-23 tablet 00:00: 00 rosuvastati rosuvastati 2021-0 No 1mg rosuvastat Ngoc n 20 mg n 20 mg 2-23 in 20 mg Ortho pe tablet 1 mg tablet 1 mg 00:00: tablet 1 dic by oral by oral 00 mg by oral Spo rts route. route. route. Medicin e Macrobid 1-0 No 1mg 100 mg 2-19 capsule 00:00: [...] 00 Bupivicaine Bupivicaine 2020-0 No 4mL Common [place] 9-22 Spirit 00:00: - CHI 00 [facility] Kenalog Kenalog 2020-0 No 40mg Common (Triamcinol (Triamcinol 9-22 S pirit one) one) 00:00: - CHI 00 [facility] Bupivicaine Bupivicaine 2020-0 No 4mL Common [place] 9-22 Spirit 00:00: - CHI 00 [facility] Kenalog Kenalog 2020-0 No 40mg Common (Triamcinol (Triamcinol 9-22 S pirit one) one) 00:00: - CHI 00 [facility] Bupivicaine Bupivicaine 2020-0 No 4mL Common [place] 9-22 Spirit 00:00: - CHI 00 [facility] Kenalog Kenalog 2020-0 No 40mg Common (Triamcinol (Triamcinol 9-22 S pirit one) one) 00:00: - CHI 00 [facility] Bupivicaine Bupivicaine 2020-0 No 4mL Common [place] 9-22 Spirit 00:00: - CHI 00 [facility] Kenalog Kenalog 2020-0 No 40mg Common (Triamcinol (Triamcinol 9-22 S pirit one) one) 00:00: - CHI 00 [facility] Bupivicaine Bupivicaine 2020-0 No 4mL Common [place] 9-22 Spirit 00:00: - CHI 00 [facility] Kenalog Kenalog 2020-0 No 40mg Common (Triamcinol (Triamcinol 9-22 S pirit one) one) 00:00: - CHI 00 [facility] Bupivicaine Bupivicaine 2020-0 No 4mL Common [place] 9-22 Spirit 00:00: - CHI 00 [facility] Kenalog Kenalog 2020-0 No 40mg Common (Triamcinol (Triamcinol 9-22 S pirit one) one) 00:00: - CHI 00 [facility] Bupivicaine Bupivicaine 2020-0 No 4mL Common [place] 9-22 Spirit 00:00: - CHI 00 [facility] Kenalog Kenalog 2020-0 No 40mg Common (Triamcinol (Triamcinol 9-22 S pirit one) one) 00:00: - CHI 00 [facility] Bupivicaine Bupivicaine 2020-0 No 4mL Common [place] 9-22 Spirit 00:00: - CHI 00 [facility] Kenalog Kenalog 2020-0 No 40mg Common (Triamcinol (Triamcinol 9-22 S pirit one) one) 00:00: - CHI 00 [facility] Bupivicaine Bupivicaine 2020-0 No 4mL Common [place] 9-22 Spirit 00:00: - CHI 00 [facility] Kenalog Kenalog 2020-0 No 40mg Common (Triamcinol (Triamcinol 9-22 S pirit one) one) 00:00: - CHI 00 [facility] Bupivicaine Bupivicaine 2020-0 No 4mL Common [place] 9-22 Spirit 00:00: - CHI 00 [facility] Kenalog Kenalog 2020-0 No 40mg Common (Triamcinol (Triamcinol 9-22 S pirit one) one) 00:00: - CHI 00 [facility] Bupivicaine Bupivicaine 2020-0 No 4mL Common [place] 9-22 Spirit 00:00: - CHI 00 [facility] Kenalog Kenalog 2020-0 No 40mg Common (Triamcinol (Triamcinol 9-22 S pirit one) one) 00:00: - CHI 00 [facility] Bupivicaine Bupivicaine 2020-0 No 4mL Common [place] 9-22 Spirit 00:00: - CHI 00 [facility] Kenalog Kenalog 2020-0 No 40mg Common (Triamcinol (Triamcinol 9-22 S pirit one) one) 00:00: - CHI 00 [facility] cetirizine 2020-0 No 1mg 10 mg [...] 10 mg 5-19 tablet 00:00: 00 cetirizine cetirizine 2020-0 No 1mg cetirizine Ngoc 10 mg 10 mg 5-19 10 mg Orthope tablet 1 mg tablet 1 mg 00:00: tablet 1 dic by oral by oral 00 mg by oral Spo rts route. route. route. Medicin e Hyalgan 20 Hyalgan 20 2020-0 No 2mL C ommon mg mg 5-14 Spirit 00:00: - CHI 00 [facility] Hyalgan 20 Hyalgan 20 2020-0 No 2mL C ommon mg mg 5-14 Spirit 00:00: - [facility] [facility] Hyalgan [facility] 2020-0 No 2mL C ommon mg mg 5-14 [facility] 00:[facility]: - [facility] Hyalgan 20 Hyalgan 20 2020-0 No 2mL C ommon mg mg 5-14 [facility] 00:00: - [facility] Hyalgan 20 Hyalgan 20 2020-0 No 2mL C ommon mg mg 5-14 [facility] 00:00: - [facility] Hyalgan 20 Hyalgan 20 2020-0 No 2mL C ommon mg mg 5-14 [facility] 00:00: - [facility] Hyalgan 20 Hyalgan 20 2020-0 No 2mL C ommon mg mg 5-14 [facility] 00:00: - [facility] Hyalgan 20 Hyalgan 20 2020-0 No 2mL C ommon mg mg 02-01 [facility] 00:00: - [facility] Hyalgan 20 Hyalgan 20 2020-0 No 2mL C ommon mg mg 02-01 [facility] 00:00: - [facility] Hyalgan 20 Hyalgan 20 2020-0 No 2mL C ommon mg mg 02-01 [facility] 00:00: - [facility] Hyalgan 20 Hyalgan 20 2020-0 No 2mL C ommon mg mg 02-01 [facility] 00:00: - [facility] Hyalgan 20 Hyalgan 20 2020-0 No 2mL C ommon mg mg 02-01 [facility] 00:00: - [facility] Ibuprofen Ibuprofen 2020-0 Yes Mu 1 PO TUD Common 01-25 [place] PRN [facility] 00:00: - [facility] Hyalgan 20 Hyalgan 20 2020-0 No 2mL C ommon mg mg 01-25 [facility] 00:00: - [facility] Hyalgan 20 Hyalgan 20 2020-0 No 2mL C ommon mg mg 01-25 [facility] 00:00: - [facility] Hyalgan 20 Hyalgan 20 2020-0 No 2mL C ommon mg mg 01-25 [facility] 00:00: - [facility] Hyalgan 20 Hyalgan 20 2020-0 No 2mL C ommon mg mg 01-25 [facility] 00:00: - [facility] Hyalgan 20 Hyalgan 20 2020-0 No 2mL C ommon mg mg 01-25 [facility] 00:00: - [facility] Hyalgan 20 Hyalgan 20 2020-0 No 2mL C ommon mg mg 01-25 [facility] 00:00: - [facility] Hyalgan 20 Hyalgan 20 2020-0 No 2mL C ommon mg mg 01-25 [facility] 00:00: - [facility] Hyalgan 20 Hyalgan 20 2020-0 No 2mL C ommon mg mg 01-25 [facility] 00:00: - [facility] Hyalgan 20 Hyalgan 20 2020-0 No 2mL C ommon mg mg 01-25 [facility] 00:00: - [facility] Hyalgan 20 Hyalgan 20 2020-0 No 2mL C ommon mg mg 01-25 [facility] 00:00: - [facility] Hyalgan 20 Hyalgan 20 2020-0 No 2mL C ommon mg mg 01-25 [facility] 00:00: - [facility] Hyalgan 20 Hyalgan 20 2020-0 No 2mL C ommon mg mg 01-25 [facility] 00:00: - [facility] Hyalgan 20 Hyalgan 20 2020-0 No 20mg C ommon mg mg 01-15 [facility] 00:00: - [facility] Hyalgan 20 Hyalgan 20 2020-0 No 20mg C ommon mg mg 01-15 [facility] 00:00: - [facility] Hyalgan 20 Hyalgan 20 2020-0 No 20mg C ommon mg mg 01-15 [facility] 00:00: - [facility] Hyalgan 20 Hyalgan 20 2020-0 No 20mg C ommon mg mg 01-15 [facility] 00:00: - [facility] Hyalgan 20 Hyalgan 20 2020-0 No 20mg C ommon mg mg 01-15 [facility] 00:00: - [facility] Hyalgan 20 Hyalgan 20 2020-0 No 20mg C ommon mg mg 01-15 [facility] 00:00: - [facility] Hyalgan 20 Hyalgan 20 2020-0 No 20mg C ommon mg mg 01-15 [facility] 00:00: - [facility] Hyalgan 20 Hyalgan 20 2020-0 No 20mg C ommon mg mg 01-15 [facility] 00:00: - [facility] Hyalgan 20 Hyalgan 20 2020-0 No 20mg C ommon mg mg 01-15 [facility] 00:00: - [facility] Hyalgan 20 Hyalgan 20 2020-0 No 20mg C ommon mg mg 01-15 [facility] 00:00: - [facility] Hyalgan 20 Hyalgan 20 2020-0 No 20mg C ommon mg mg 01-15 [facility] 00:00: - [facility] Hyalgan 20 Hyalgan 20 2020-0 No 20mg C ommon mg mg 01-15 [facility] 00:00: - [facility] Kenalog Kenalog 2020-0 No 40mg Common (Triamcinol (Triamcinol 12-20 S pirit one) one) 00:00: - [facility] Bupivicaine Bupivicaine 2020-0 No 4mL Common [place] 4-01 [facility] 00:00: - [facility] Kenalog Kenalog 2020-0 No 40mg Common (Triamcinol (Triamcinol 4-01 S pirit one) one) 00:00: - [facility] Bupivicaine Bupivicaine 2020-0 No 4mL Common [place] 4-01 [facility] 00:00: - [facility] Kenalog Kenalog 2020-0 No 40mg Common (Triamcinol (Triamcinol 4-01 S pirit one) one) 00:00: - [facility] Bupivicaine Bupivicaine 2020-0 No 4mL Common [place] 4-01 [facility] 00:00: - [facility] Kenalog Kenalog 2020-0 No 40mg Common (Triamcinol (Triamcinol 4-01 S pirit one) one) 00:00: - [facility] Bupivicaine Bupivicaine 2020-0 No 4mL Common [place] 4-01 [facility] 00:00: - [facility] Kenalog Kenalog 2020-0 No 40mg Common (Triamcinol (Triamcinol 4-01 S pirit one) one) 00:00: - [facility] Bupivicaine Bupivicaine 2020-0 No 4mL Common [place] 4-01 [facility] 00:00: - [facility] Kenalog Kenalog 2020-0 No 40mg Common (Triamcinol (Triamcinol 4-01 S pirit one) one) 00:00: - [facility] Bupivicaine Bupivicaine 2020-0 No 4mL Common [place] 4-01 [facility] 00:00: - [facility] Kenalog Kenalog 2020-0 No 40mg Common (Triamcinol (Triamcinol 4-01 S pirit one) one) 00:00: - [facility] Bupivicaine Bupivicaine 2020-0 No 4mL Common [place] 4-01 [facility] 00:00: - [facility] Kenalog Kenalog 2020-0 No 40mg Common (Triamcinol (Triamcinol 4-01 S pirit one) one) 00:00: - [facility] Bupivicaine Bupivicaine 2020-0 No 4mL Common [place] 4-01 [facility] 00:00: - [facility] Kenalog Kenalog 2020-0 No 40mg Common (Triamcinol (Triamcinol 4-01 S pirit one) one) 00:00: - [facility] Bupivicaine Bupivicaine 2020-0 No 4mL Common [place] 4- [facility] 00:00: - [facility] Kenalog Kenalog 2020-0 No 40mg Common (Triamcinol (Triamcinol 4-01 S pirit one) one) 00:00: - [facility] Bupivicaine Bupivicaine 2020-0 No 4mL Common [place] 4- [facility] 00:00: - [facility] Kenalog Kenalog 2020-0 No 40mg Common (Triamcinol (Triamcinol 4-01 S pirit one) one) 00:00: - [facility] Bupivicaine Bupivicaine 2020-0 No 4mL Common [place] 4-01 [facility] 00:00: - [facility] Kenalog Kenalog 2020-0 No 40mg Common (Triamcinol (Triamcinol 4-01 S pirit one) one) 00:00: - [facility] Bupivicaine Bupivicaine 2020-0 No 4mL Common [place] 4-01 [facility] 00:00: - [facility] Dose 2020-0 No Unknown 2-26 00:00: 00 Dose 2020-0 No Unknown 2-26 00:00: 00 Dose 2020-0 No Unknown 2-26 00:00: 00 Dose 2020-0 No Unknown 2-26 00:00: 00 Dose 2020-0 No Unknown 2-26 00:00: 00 Dose 2020-0 No Unknown 2-26 00:00: 00 Dose 2020-0 No Unknown 2-26 00:00: 00 benzonatate 2020-0 Yes [id number] 100mg Take 1 [facility] 100 mg 2-01 capsule by ity of capsule 00:00: mouth 3 (three) Medical times Branch daily as needed for Cough. benzonatate 2020-0 Yes [id number] 100mg Take 1 [facility] 100 mg 2-01 capsule by ity of capsule 00:00: mouth 3 (three) Medical times Branch daily as needed for Cough. benzonatate 2020-0 Yes [id number] 100mg Take 1 [facility] 100 mg 2-01 capsule by ity of capsule 00:00: mouth 3 (three) Medical times Branch daily as needed for Cough. benzonatate 2020-0 Yes [id number] 100mg Take 1 [facility] 100 mg 2-01 capsule by ity of capsule 00:00: mouth 3 (three) Medical times Branch daily as needed for Cough. benzonatate 2020-0 Yes [id number] 100mg Take 1 [facility] 100 mg 2-01 capsule by ity of capsule 00:00: mouth 3 (three) Medical times Branch daily as needed for Cough. benzonatate 2020-0 Yes [id number] 100mg Take 1 [facility] 100 mg 2-01 capsule by ity of capsule 00:00: mouth 3 (three) Medical times Branch daily as needed for Cough. benzonatate 2020-0 Yes [id number] 100mg Take 1 [facility] 100 mg 2-01 capsule by ity of capsule 00:00: mouth 3 (three) Medical times Branch daily as needed for Cough. benzonatate 2020-0 Yes [id number] 100mg Take 1 [facility] 100 mg 2-01 capsule by ity of capsule 00:00: mouth 3 [place] (three) Medical times Branch daily as needed for Cough. benzonatate benzonatate 2020-0 No 100mg benzonatat [facility] 100 mg 100 mg 2-01 e 100 mg [facility] capsule 100 capsule 100 00:00: capsule dic mg by oral mg by oral 00 100 mg by Sports route. route. oral Medicin route. e azithromyci 2020-0 No 1mg n 250 mg [...] 250 mg 1-03 tablet 00:00: 00 azithromyci azithromyci 2020-0 No 1mg azithromyc Ngoc n 250 mg n 250 mg 1-03 in 250 mg Or thope tablet 1 mg tablet 1 mg 00:00: tablet 1 dic by oral by oral 00 mg by oral Spo rts route. route. route. Medicin e lisinopril 2020-0 No 1mg 40 mg 1-02 [...] mg 0-23 tablet 00:00: 00 Kenalog Kenalog 2018-1 No 1mL Common (Triamcinol (Triamcinol 0-21 S pirit one) one) 00:00: - [facility] LIDOCAINE LIDOCAINE 2019-1 No 4mL Com mon HCL 10MG/ML HCL 10MG/ML 0-21 S pirit 00:00: - [facility] Kenalog Kenalog 2019-1 No 1mL Common (Triamcinol (Triamcinol 0-21 S pirit one) one) 00:00: - [facility] LIDOCAINE LIDOCAINE 2019-1 No 4mL Com mon HCL 10MG/ML HCL 10MG/ML 0-21 S pirit 00:00: - [facility] Kenalog Kenalog 2019-1 No 1mL Common (Triamcinol (Triamcinol 0-21 S pirit one) one) 00:00: - [facility] LIDOCAINE LIDOCAINE 2019-1 No 4mL Com mon HCL 10MG/ML HCL 10MG/ML 0-21 S pirit 00:00: - [facility] Kenalog Kenalog 2019- No 1mL Common (Triamcinol (Triamcinol 0-21 S pirit one) one) 00:00: - [facility] LIDOCAINE LIDOCAINE 2019-1 No 4mL Com mon HCL 10MG/ML HCL 10MG/ML 0-21 S pirit 00:00: - [facility] Kenalog Kenalog 2019-1 No 1mL Common (Triamcinol (Triamcinol 0-21 S pirit one) one) 00:00: - [facility] LIDOCAINE LIDOCAINE 2019-1 No 4mL Com mon HCL 10MG/ML HCL 10MG/ML 0-21 S pirit 00:00: - [facility] Kenalog Kenalog 2019-1 No 1mL Common (Triamcinol (Triamcinol 0-21 S pirit one) one) 00:00: - [facility] LIDOCAINE LIDOCAINE 2019-1 No 4mL Com mon HCL 10MG/ML HCL 10MG/ML 0-21 S pirit 00:00: - [facility] Kenalog Kenalog 2019-1 No 1mL Common (Triamcinol (Triamcinol 0-21 S pirit one) one) 00:00: - [facility] LIDOCAINE LIDOCAINE 2019-1 No 4mL Com mon HCL 10MG/ML HCL 10MG/ML 0-21 S pirit 00:00: - [facility] Kenalog Kenalog 2019-1 No 1mL Common (Triamcinol (Triamcinol 0-21 S pirit one) one) 00:00: - [facility] LIDOCAINE LIDOCAINE 2019-1 No 4mL Com mon HCL 10MG/ML HCL 10MG/ML 0-21 S pirit 00:00: - [facility] Kenalog Kenalog 2019-1 No 1mL Common (Triamcinol (Triamcinol 0-21 S pirit one) one) 00:00: - [facility] LIDOCAINE LIDOCAINE 2019-1 No 4mL Com mon HCL 10MG/ML HCL 10MG/ML 0-21 S pirit 00:00: - [facility] Kenalog Kenalog 2019-1 No 1mL Common (Triamcinol (Triamcinol 0-21 S pirit one) one) 00:00: - [facility] LIDOCAINE LIDOCAINE 2019-1 No 4mL Com mon HCL 10MG/ML HCL 10MG/ML 0-21 S pirit 00:00: - [facility] Kenalog Kenalog 2019-1 No 1mL Common (Triamcinol (Triamcinol 0-21 S pirit one) one) 00:00: - [facility] LIDOCAINE LIDOCAINE 2019-1 No 4mL Com mon HCL 10MG/ML HCL 10MG/ML 0-21 S pirit 00:00: - [facility] Kenalog Kenalog 2019-1 No 1mL Common (Triamcinol (Triamcinol 0-21 S pirit one) one) 00:00: - [facility] LIDOCAINE LIDOCAINE 2019-1 No 4mL Com mon HCL 10MG/ML HCL 10MG/ML 0-21 S pirit 00:00: - [facility] lisinopril 2019-0 No 1mg 40 mg [...] 15 mg 8-14 tablet 00:00: 00 lisinopril lisinopril 2019-0 No 1mg lisinopril Ngoc 40 mg 40 mg 8-14 40 mg [facility] tablet 1 mg tablet 1 mg 00:00: tablet 1 dic by oral by oral 00 mg by oral Spo rts route. route. route. Medicin e Hyalgan 20 Hyalgan 20 2019-0 No 20mg C ommon mg mg 7-16 [facility] 00:00: - [facility] Hyalgan 20 Hyalgan 20 2019-0 No 20mg C ommon mg mg 7-16 [facility] 00:00: - [facility] Hyalgan 20 Hyalgan 20 2019-0 No 20mg C ommon mg mg 7-16 [facility] 00:00: - [facility] Hyalgan 20 Hyalgan 20 2019-0 No 20mg C ommon mg mg 7-16 [facility] 00:00: - [facility] Hyalgan 20 Hyalgan 20 2019-0 No 20mg C ommon mg mg 7-16 [facility] 00:00: - [facility] Hyalgan 20 Hyalgan 20 2019-0 No 20mg C ommon mg mg 7-16 [facility] 00:00: - [facility] Hyalgan 20 Hyalgan 20 2019-0 No 20mg C ommon mg mg 7-16 [facility] 00:00: - [facility] Hyalgan 20 Hyalgan 20 2019-0 No 20mg C ommon mg mg 7-16 [facility] 00:00: - [facility] Hyalgan 20 Hyalgan 20 2019-0 No 20mg C ommon mg mg 7-16 [facility] 00:00: - [facility] Hyalgan 20 Hyalgan 20 2019-0 No 20mg C ommon mg mg 04-05 [facility] 00:00: - [facility] Hyalgan 20 Hyalgan 20 2019-0 No 20mg C ommon mg mg 04-05 [facility] 00:00: - [facility] Hyalgan 20 Hyalgan 20 2019-0 No 20mg C ommon mg mg 04-05 [facility] 00:00: - [facility] Hyalgan 20 Hyalgan 20 2019-0 No 20mg C ommon mg mg 03-29 [facility] 00:00: - [facility] Hyalgan 20 Hyalgan 20 2019-0 No 20mg C ommon mg mg 03-29 [facility] 00:00: - [facility] Hyalgan 20 Hyalgan 20 2019-0 No 20mg C ommon mg mg 03-29 [facility] 00:00: - [facility] Hyalgan 20 Hyalgan 20 2019-0 No 20mg C ommon mg mg 03-29 [facility] 00:00: - [facility] Hyalgan 20 Hyalgan 20 2019-0 No 20mg C ommon mg mg 03-29 [facility] 00:00: - [facility] Hyalgan 20 Hyalgan 20 2019-0 No 20mg C ommon mg mg 03-29 [facility] 00:00: - [facility] Hyalgan 20 Hyalgan 20 2019-0 No 20mg C ommon mg mg 03-29 [facility] 00:00: - [facility] Hyalgan 20 Hyalgan 20 2019-0 No 20mg C ommon mg mg 03-29 [facility] 00:00: - [facility] Hyalgan 20 Hyalgan 20 2019-0 No 20mg C ommon mg mg 03-29 [facility] 00:00: - [facility] Hyalgan 20 Hyalgan 20 2019-0 No 20mg C ommon mg mg 03-29 [facility] 00:00: - [facility] Hyalgan 20 Hyalgan 20 2019-0 No 20mg C ommon mg mg 03-29 [facility] 00:00: - [facility] Hyalgan 20 Hyalgan 20 2019-0 No 20mg C ommon mg mg 03-29 [facility] 00:00: - [facility] LIDOCAINE LIDOCAINE 2019-0 No 10mg Com mon HCL 10MG/ML HCL 10MG/ML 7-02 S pirit 00:00: - [facility] Hyalgan 20 Hyalgan 20 2019-0 No 20mg C ommon mg mg 7 [facility] 00:00: - [facility] Kenalog Kenalog 2019-0 No 40mg Common (Triamcinol (Triamcinol 7-02 S pirit one) one) 00:00: - [facility] LIDOCAINE LIDOCAINE 2019-0 No 10mg Com mon HCL 10MG/ML HCL 10MG/ML 7- S pirit 00:00: - [facility] Hyalgan 20 Hyalgan 20 2019-0 No 20mg C ommon mg mg 03-22 [facility] 00:00: - [facility] Kenalog Kenalog 2019-0 No 40mg Common (Triamcinol (Triamcinol 7-02 S pirit one) one) 00:00: - [facility] LIDOCAINE LIDOCAINE 2019-0 No 10mg Com mon HCL 10MG/ML HCL 10MG/ML 7-02 S pirit 00:00: - [facility] Hyalgan 20 Hyalgan 20 2019-0 No 20mg C ommon mg mg 7 [facility] 00:00: - [facility] Kenalog Kenalog 2019-0 No 40mg Common (Triamcinol (Triamcinol 7-02 S pirit one) one) 00:00: - [facility] LIDOCAINE LIDOCAINE 2019-0 No 10mg Com mon HCL 10MG/ML HCL 10MG/ML 7- S pirit 00:00: - [facility] Hyalgan 20 Hyalgan 20 2019-0 No 20mg C ommon mg mg 7 [facility] 00:00: - [facility] Kenalog Kenalog 2019-0 No 40mg Common (Triamcinol (Triamcinol 7-02 S pirit one) one) 00:00: - [facility] LIDOCAINE LIDOCAINE 2019-0 No 10mg Com mon HCL 10MG/ML HCL 10MG/ML 7-02 S pirit 00:00: - [facility] Hyalgan 20 Hyalgan 20 2019-0 No 20mg C ommon mg mg 7- [facility] 00:00: - [facility] Kenalog Kenalog 2019-0 No 40mg Common (Triamcinol (Triamcinol 7-02 S pirit one) one) 00:00: - [facility] LIDOCAINE LIDOCAINE 2019-0 No 10mg Com mon HCL 10MG/ML HCL 10MG/ML 7-02 S pirit 00:00: - [facility] Hyalgan 20 Hyalgan 20 2019-0 No 20mg C ommon mg mg 7 [facility] 00:00: - [facility] Kenalog Kenalog 2019-0 No 40mg Common (Triamcinol (Triamcinol 7-02 S pirit one) one) 00:00: - [facility] LIDOCAINE LIDOCAINE 2019-0 No 10mg Com mon HCL 10MG/ML HCL 10MG/ML 7-02 S pirit 00:00: - [facility] Hyalgan 20 Hyalgan 20 2019-0 No 20mg C ommon mg mg 7 [facility] 00:00: - [facility] Kenalog Kenalog 2019-0 No 40mg Common (Triamcinol (Triamcinol 7-02 S pirit one) one) 00:00: - [facility] LIDOCAINE LIDOCAINE 2019-0 No 10mg Com mon HCL 10MG/ML HCL 10MG/ML 7-02 S pirit 00:00: - [facility] Hyalgan 20 Hyalgan 20 2019-0 No 20mg C ommon mg mg 03-22 [facility] 00:00: - [facility] Kenalog Kenalog 2019-0 No 40mg Common (Triamcinol (Triamcinol 7-02 S pirit one) one) 00:00: - [facility] LIDOCAINE LIDOCAINE 2019-0 No 10mg Com mon HCL 10MG/ML HCL 10MG/ML 7-02 S pirit 00:00: - [facility] Hyalgan 20 Hyalgan 20 2019-0 No 20mg C ommon mg mg 702 [facility] 00:00: - [facility] Kenalog Kenalog 2019-0 No 40mg Common (Triamcinol (Triamcinol 7-02 S pirit one) one) 00:00: - [facility] LIDOCAINE LIDOCAINE 2019-0 No 10mg Com mon HCL 10MG/ML HCL 10MG/ML 7-02 S pirit 00:00: - [facility] Hyalgan 20 Hyalgan 20 2019-0 No 20mg C ommon mg mg 7- [facility] 00:00: - [facility] Kenalog Kenalog 2019-0 No 40mg Common (Triamcinol (Triamcinol 7-02 S pirit one) one) 00:00: - [facility] LIDOCAINE LIDOCAINE 2019-0 No 10mg Com mon HCL 10MG/ML HCL 10MG/ML 7-02 S pirit 00:00: - [facility] Hyalgan 20 Hyalgan 20 2019-0 No 20mg C ommon mg mg 7 [facility] 00:00: - [facility] Kenalog Kenalog 2019-0 No 40mg Common (Triamcinol (Triamcinol 7-02 S pirit one) one) 00:00: - [facility] LIDOCAINE LIDOCAINE 2019-0 No 10mg Com mon HCL 10MG/ML HCL 10MG/ML 7- S pirit 00:00: - [facility] Hyalgan 20 Hyalgan 20 2019-0 No 20mg C ommon mg mg 7 [facility] 00:00: - [facility] Kenalog Kenalog 2019-0 No 40mg Common (Triamcinol (Triamcinol 7-02 S pirit one) one) 00:00: - [facility] fluticasone 2019-0 No 2mcg/ac propionate 5- tuation 50 00:00: mcg/actuati 00 on nasal spray,suspe nsion fluticasone 2019-0 No 2mcg/ac propionate 5 tuation 50 00:00: mcg/actuati 00 on nasal spray,suspe nsion fluticasone 2019-0 No 2mcg/ac propionate 01-20 tuation 50 00:00: mcg/actuati 00 on nasal spray,suspe nsion fluticasone 2019-0 No 2mcg/ac propionate 5 tuation 50 00:00: mcg/actuati 00 on nasal spray,suspe nsion fluticasone 2019-0 No 2mcg/ac propionate 01-20 tuation 50 00:00: mcg/actuati 00 on nasal spray,suspe nsion fluticasone 2019-0 No 2mcg/ac propionate 01-20 tuation 50 00:00: mcg/actuati 00 on nasal spray,suspe nsion fluticasone 2019-0 No 2mcg/ac propionate 01-20 tuation 50 00:00: mcg/actuati 00 on nasal spray,suspe nsion lisinopril 2019-0 No 1mg 40 mg - tablet 00:00: 00 amlodipine 2019-0 No 1mg 5 mg tablet 12-20 00:00: 00 meloxicam 2019-0 No 1mg 15 mg - tablet 00:00: 00 fluticasone 2019-0 No 2mcg/ac propionate 12-20 tuation 50 00:00: mcg/actuati 00 on nasal spray,suspe nsion Bromfed DM 2018-0 No 5mg/5 2 mg-30 - mL mg-10 mg/5 00:00: mL oral 00 syrup lisinopril 2019-0 No 1mg 40 mg - tablet 00:00: 00 amlodipine 2019-0 No 1mg 5 mg tablet 12-20 00:00: 00 meloxicam 2019-0 No 1mg 15 mg - tablet 00:00: 00 fluticasone 2019-0 No 2mcg/ac propionate 12-20 tuation 50 00:00: mcg/actuati 00 on nasal spray,suspe nsion Bromfed DM 2018-0 No 5mg/5 2 mg-30 12-20 mL mg-10 mg/5 00:00: mL oral 00 syrup lisinopril 2019-0 No 1mg 40 mg - tablet 00:00: 00 amlodipine 2019-0 No 1mg 5 mg tablet 12-20 00:00: 00 meloxicam 2019-0 No 1mg 15 mg 4- tablet 00:00: 00 fluticasone 2019-0 No 2mcg/ac propionate 12-20 tuation 50 00:00: mcg/actuati 00 on nasal spray,suspe nsion Bromfed DM 2018-0 No 5mg/5 2 mg-30 - mL mg-10 mg/5 00:00: mL oral 00 syrup lisinopril 2019-0 No 1mg 40 mg 4- tablet 00:00: 00 amlodipine 2019-0 No 1mg 5 mg tablet 12-20 00:00: 00 meloxicam 2019-0 No 1mg 15 mg 4- tablet 00:00: 00 fluticasone 2019-0 No 2mcg/ac propionate 12-20 tuation 50 00:00: mcg/actuati 00 on nasal spray,suspe nsion Bromfed DM 0 No 5mg/5 2 mg-30 4- mL mg-10 mg/5 00:00: mL oral 00 syrup lisinopril 2018-0 No 1mg 40 mg 4- tablet 00:00: 00 amlodipine 2018-0 No 1mg 5 mg tablet 12-20 00:00: 00 meloxicam 2018-0 No 1mg 15 mg 4- tablet 00:00: 00 fluticasone 2019-0 No 2mcg/ac propionate 12-20 tuation 50 00:00: mcg/actuati 00 on nasal spray,suspe nsion Bromfed DM 0 No 5mg/5 2 mg-30 - mL mg-10 mg/5 00:00: mL oral 00 syrup lisinopril 2019-0 No 1mg 40 mg 4- tablet 00:00: 00 amlodipine 2018-0 No 1mg 5 mg tablet 12-20 00:00: 00 meloxicam 2019-0 No 1mg 15 mg 4- tablet 00:00: 00 fluticasone 2019-0 No 2mcg/ac propionate 12-20 tuation 50 00:00: mcg/actuati 00 on nasal spray,suspe nsion Bromfed DM 0 No 5mg/5 2 mg-30 - mL mg-10 mg/5 00:00: mL oral 00 [...] mg-10 mg/5 00:00: mL oral 00 syrup meloxicam meloxicam 2019-0 No 1mg meloxicam Ngoc 15 mg 15 mg 4-01 15 mg [facility] tablet 1 mg tablet 1 mg 00:00: tablet 1 dic by oral by oral 00 mg by oral Spo rts route. route. route. Medicin e Keflex 500 2019-0 No 1mg mg capsule 3 00:00: 00 Keflex 500 2019-0 No 1mg mg capsule 3 00:00: 00 Keflex 500 2019-0 No 1mg mg capsule 3 00:00: 00 Keflex 500 2019-0 No 1mg mg capsule 3 00:00: 00 Keflex 500 2019-0 No 1mg mg capsule 3 00:00: 00 Keflex 500 2018-0 No 1mg mg capsule 3 00:00: 00 Keflex 500 2019-0 No 1mg mg capsule 3 00:00: 00 meloxicam 2019-0 No 1mg 15 mg 3-08 tablet 00:00: 00 amlodipine 2019-0 No 1mg 5 mg tablet 308 00:00: 00 lisinopril 2019-0 No 1mg 40 mg 3-08 tablet 00:00: 00 meloxicam 2019-0 No 1mg 15 mg 3-08 tablet 00:00: 00 amlodipine 2019-0 No 1mg 5 mg tablet 308 00:00: 00 lisinopril 2019-0 No 1mg 40 [...] amlodipine 2019-0 No 1mg 5 mg tablet 308 00:00: 00 lisinopril 2019-0 No 1mg 40 mg 3-08 tablet 00:00: 00 loratadine 2018-1 No 1mg 10 mg 0-15 tablet 00:00: 00 prednisone 2017- No 3mg 20 mg 0-15 tablet 00:00: 00 loratadine 2017- No 1mg 10 mg 0-15 tablet 00:00: 00 prednisone 2017- No 3mg 20 mg 0-15 tablet 00:00: 00 loratadine 2017- No 1mg 10 mg 0-15 tablet 00:00: 00 loratadine 2017- No 1mg 10 mg 0-15 tablet 00:00: 00 prednisone 2018- No 3mg 20 mg 0-15 tablet 00:00: 00 prednisone 2018- No 3mg 20 mg 0-15 tablet 00:00: 00 loratadine 2017-1 No 1mg 10 mg 0-15 tablet 00:00: 00 prednisone 2018-1 No 3mg 20 mg 0-15 tablet 00:00: 00 loratadine 2018-1 No 1mg 10 mg 0-15 tablet 00:00: 00 prednisone 2018- No 3mg 20 mg 0-15 tablet 00:00: 00 loratadine 2018- No 1mg 10 mg 0-15 tablet 00:00: 00 prednisone 2018- No 3mg 20 mg 0-15 tablet 00:00: 00 loratadine loratadine 2018-1 No 1mg loratadine Ng[facility] 10 mg 10 mg 0-15 10 mg [facility] tablet 1 mg tablet 1 mg 00:00: tablet 1 dic by oral by oral 00 mg by oral Spo rts route. route. route. Medicin e prednisone prednisone 2018- No 3mg prednisone Ngoc 20 mg 20 mg 0-15 20 mg [facility] tablet 3 mg tablet 3 mg 00:00: tablet 3 dic by oral by oral 00 mg by oral Spo rts route. route. route. Medicin e lisinopril 2018-0 No 1mg 40 mg 8-13 tablet 00:00: 00 amlodipine 2018-0 No 1mg 5 mg tablet 05-03 00:00: 00 meloxicam 2018-0 No 1mg 15 mg 8-13 tablet 00:00: 00 lisinopril 2018-0 No 1mg 40 mg 8-13 tablet 00:00: 00 amlodipine 2018-0 No 1mg 5 mg tablet 05-03 00:00: 00 meloxicam 2018-0 No 1mg 15 mg 8-13 tablet 00:00: 00 lisinopril 2018-0 No 1mg 40 mg 8-13 tablet 00:00: 00 amlodipine 2018-0 No 1mg 5 mg tablet 05-03 00:00: 00 meloxicam 2018-0 No 1mg 15 mg 8-13 tablet 00:00: 00 lisinopril 2018-0 No 1mg 40 mg 8-13 tablet 00:00: 00 amlodipine 2018-0 No 1mg 5 mg tablet 05-03 00:00: 00 meloxicam 2018-0 No 1mg 15 mg 8-13 tablet 00:00: 00 lisinopril 2018-0 No 1mg 40 mg 8-13 tablet 00:00: 00 amlodipine 2018-0 No 1mg 5 mg tablet 05-03 00:00: 00 meloxicam 2018-0 No 1mg 15 mg 8-13 tablet 00:00: 00 lisinopril 2018-0 No 1mg 40 mg 8-13 tablet 00:00: 00 amlodipine 2018-0 No 1mg 5 mg tablet 05-03 00:00: 00 meloxicam 2018-0 No 1mg 15 mg 8-13 tablet 00:00: 00 lisinopril 2018-0 No 1mg 40 mg 8-13 tablet 00:00: 00 amlodipine 2018-0 No 1mg 5 mg tablet 05-03 00:00: 00 meloxicam 2018-0 No 1mg 15 [...] amlodipine 2018-0 No 1mg 5 mg tablet 04-07 00:00: 00 amlodipine 2018-0 No 1mg 5 mg tablet 04-07 00:00: 00 amlodipine 2018-0 No 1mg 5 mg tablet 04-07 00:00: 00 amlodipine 2018-0 No 1mg 5 mg tablet 04-07 00:00: 00 amlodipine 2018-0 No 1mg 5 mg tablet 04-07 00:00: 00 amlodipine 2018-0 No 1mg 5 mg tablet 04-07 00:00: 00 amlodipine 2018-0 No 1mg 5 mg tablet 04-07 00:00: 00 amlodipine amlodipine 2018-0 No 1mg amlodipine [facility] 5 mg tablet 5 mg tablet 04-07 5 mg O [facility] 1 mg by 1 mg by 00:00: tablet 1 dic oral route. oral route. 00 mg by oral Sports route. Medicin e lisinopril 2018-0 No 1mg 40 mg 7-02 [...] 50 mg 5-16 tablet 00:00: 00 lisinopril lisinopril 2018-0 No 1mg lisinopril [facility] 20 mg 20 mg 5-16 20 mg [facility] tablet 1 mg tablet 1 mg 00:00: tablet 1 dic by oral by oral 00 mg by oral Spo rts route. route. route. Medicin e citalopram 2018-0 No 1mg 10 mg 5-09 [...] 10 mg 5-09 tablet 00:00: 00 citalopram citalopram 2018-0 No 1mg citalopram [facility] 10 mg 10 mg 5-09 10 mg [facility] tablet 1 mg tablet 1 mg 00:00: tablet 1 dic by oral by oral 00 mg by oral Spo rts route. route. route. Medicin e meloxicam 2018-0 No 1mg 15 mg 5-02 tablet 00:00: 00 lisinopril 2018-0 No 1mg 10 mg 5-02 tablet 00:00: 00 lisinopril 2018-0 No 2mg 10 mg 5-02 tablet 00:00: 00 lisinopril 2018-0 No 3mg 10 mg 5-02 tablet 00:00: 00 meloxicam 2018-0 No 1mg 15 mg 5-02 tablet 00:00: 00 meloxicam 2018-0 No 1mg 15 mg 5-02 tablet 00:00: 00 lisinopril 2018-0 No 1mg 10 mg 5-02 tablet 00:00: 00 lisinopril 2018-0 No 2mg 10 mg 5-02 tablet 00:00: 00 lisinopril 2018-0 No 3mg 10 mg 5-02 tablet 00:00: 00 lisinopril [...] 3mg 10 mg 5-02 tablet 00:00: 00 lisinopril lisinopril 2018-0 No 2mg lisinopril [facility] 10 mg 10 mg 5-02 10 mg [facility] tablet 2 mg tablet 2 mg 00:00: tablet 2 dic by oral by oral 00 mg by oral Spo rts route. route. route. Medicin e hydroxyzine 2016-09 No 1mg HCl 25 mg 0-05 tablet 00:00: 00 hydroxyzine 2016-09 No 1mg HCl 25 mg 0-05 tablet 00:00: 00 promethazin 2016-09 No 10mg/5 e-DM 6.25 0-05 mL mg-15 mg/5 00:00: mL syrup 00 promethazin 2016-09 No 10mg/5 e-DM 6.25 [...] mg/5 00:00: mL syrup 00 Keflex 500 2017-0 No 1mg mg capsule 6 00:00: 00 Keflex 500 2017-0 No 1mg mg capsule 6 00:00: 00 Keflex 500 2016-0 No 1mg mg capsule 6 00:00: 00 Keflex 500 2016-0 No 1mg mg capsule 6 00:00: 00 Keflex 500 2017-0 No 1mg mg capsule 6 00:00: 00 Keflex 500 2017-0 No 1mg mg capsule 6 00:00: 00 Keflex 500 2017-0 No 1mg mg capsule 6 00:00: 00 Keflex 500 Keflex 500 2017-0 No 1mg Keflex 500 [facility] mg capsule mg capsule 6-22 mg capsule [facility] 1 mg by 1 mg by 00:00: 1 mg by dic oral route. oral route. 00 oral S ports route. Medicin e Robaxin 500 2015-09 No 1mg mg tablet 2-20 00:00: 00 diclofenac 2015-09 No 1mg sodium 50 2-20 mg 00:00: tablet,morenita 00 yed release hydroxyzine 2015-09 No 1mg HCl 50 mg 2-20 tablet 00:00: 00 Robaxin 500 2015-09 No 1mg mg tablet 2-20 00:00: 00 diclofenac 2015-09 No 1mg sodium 50 2-20 mg 00:00: tablet,morenita 00 yed release hydroxyzine 2015-09 No 1mg HCl [...] 50 mg 2-20 tablet 00:00: 00 diclofenac 2015-09 No 1mg sodium 50 2-20 mg 00:00: tablet,morenita yed release hydroxyzine 2015-09 No 1mg HCl 50 mg 2-20 tablet 00:00: 00 Robaxin 500 2015-09 No 1mg mg tablet 2-20 00:00: 00 Bactrim DS 2014-09 No 1mg 800 mg-160 1-04 mg tablet [...] mL mg-10 mg/5 00:00: mL syrup 00 traZODone traZODone No QD traZODone HCl 50 [...] Clarithromy Clarithromy No Clarithrom justina justina ycin Cyclobenzap Cyclobenzap No Cyclobenza rine HCl rine HCl chiara HCl Benzonatate Benzonatate No Benzonatat e predniSONE predniSONE No predniSONE Ofloxacin Ofloxacin No Ofloxacin Rosuvastati Rosuvastati No Rosuvastat n Calcium n Calcium in Calcium Cephalexin Cephalexin No Cephalexin Pantoprazol Pantoprazol No Pantoprazo e Sodium e [...] levoFLOXaci levoFLOXaci No levoFLOXac n n in Fluticasone Fluticasone No Fluticason Propionate Propionate e Propionate guaiFENesin guaiFENesin No guaiFENesi -Codeine -Codeine n-Codeine hydrOXYzine hydrOXYzine No hydrOXYzin HCl HCl e HCl Amoxicillin Amoxicillin No Amoxicilli n methylPREDN methylPREDN No methylPRED ISolone ISolone NISolone traZODone traZODone No traZODone HCl HCl HCl Flucelvax Flucelvax No Flucelvax Quadrivalen Quadrivalen Quadrivale t t nt Clarithromy Clarithromy No Clarithrom justina justina ycin Doxycycline Doxycycline No Doxycyclin Hyclate Hyclate e Hyclate Naproxen Naproxen No Naproxen Mupirocin 2 Mupirocin 2 No Mupirocin % % 2 % Metformin Metformin No Metformin HCl HCl HCl Xarelto Xarelto No Xarelto Diclofenac Diclofenac No Diclofenac Sodium 75 Sodium 75 Sodium 75 MG MG MG Gatifloxaci Gatifloxaci No Gatifloxac n n in Acetaminoph Acetaminoph No Acetaminop en-Codeine en-Codeine hen-Codein #3 #3 e #3 Cetirizine Cetirizine No Cetirizine HCl HCl HCl Losartan Losartan No Losartan Potassium Potassium Potassium 100 MG 100 MG 100 MG Fluticasone Fluticasone No Fluticason Propionate Propionate e Propionate Metformin Metformin No Metformin HCl HCl HCl Metoprolol Metoprolol No Metoprolol Succinate Succinate Succinate ER ER ER traZODone traZODone No QD traZODone HCl 50 MG HCl 50 MG HCl 50 MG Sulfamethox Sulfamethox No Sulfametho azole-Trime azole-Trime xazole-Tri thoprim thoprim methoprim 800-160 MG 800-160 MG 800-160 MG Omeprazole Omeprazole No Omeprazole Cephalexin Cephalexin No Cephalexin Tylenol Tylenol No Tylenol Amoxicillin Amoxicillin No Amoxicilli n Mupirocin 2 Mupirocin 2 No Mupirocin % % 2 % Cyclobenzap Cyclobenzap No Cyclobenza rine HCl rine HCl chiara HCl Benzonatate Benzonatate No Benzonatat e predniSONE predniSONE No predniSONE Ofloxacin Ofloxacin No Ofloxacin Rosuvastati Rosuvastati No Rosuvastat n Calcium n Calcium in Calcium Pantoprazol Pantoprazol No Pantoprazo e Sodium e Sodium le Sodium Omeprazole Omeprazole No Omeprazole Naproxen Naproxen No Naproxen Albuterol Albuterol No [...] guaiFENesin guaiFENesin No guaiFENesi -Codeine -Codeine n-Codeine Ofloxacin Ofloxacin No Ofloxacin hydrOXYzine hydrOXYzine No hydrOXYzin HCl HCl e HCl Amoxicillin Amoxicillin No Amoxicilli n methylPREDN methylPREDN No methylPRED ISolone ISolone NISolone traZODone traZODone No traZODone HCl HCl HCl Flucelvax Flucelvax No Flucelvax Quadrivalen Quadrivalen Quadrivale t t nt Clarithromy Clarithromy No Clarithrom justina justina ycin Doxycycline Doxycycline No Doxycyclin Hyclate Hyclate e Hyclate Mupirocin 2 Mupirocin 2 No Mupirocin % % 2 % guaiFENesin guaiFENesin No guaiFENesi -Codeine -Codeine n-Codeine Metformin Metformin No Metformin HCl HCl HCl Xarelto Xarelto No Xarelto Diclofenac Diclofenac No Diclofenac Sodium 75 Sodium 75 Sodium 75 MG MG MG Gatifloxaci Gatifloxaci No Gatifloxac n n in Acetaminoph Acetaminoph No Acetaminop en-Codeine en-Codeine hen-Codein #3 #3 e #3 Cetirizine Cetirizine No Cetirizine HCl HCl HCl Losartan Losartan No Losartan Potassium Potassium Potassium 100 MG 100 MG 100 MG Fluticasone Fluticasone No Fluticason Propionate Propionate e Propionate traZODone traZODone No traZODone HCl HCl HCl Metoprolol Metoprolol No Metoprolol Succinate Succinate Succinate ER ER ER traZODone traZODone No QD traZODone HCl 50 MG HCl 50 MG HCl 50 MG Sulfamethox Sulfamethox No Sulfametho azole-Trime azole-Trime xazole-Tri thoprim thoprim methoprim 800-160 MG 800-160 MG 800-160 MG Omeprazole Omeprazole No Omeprazole Cephalexin Cephalexin No Cephalexin Tylenol Tylenol No Tylenol Promethazin Promethazin No Promethazi e-DM e-DM ne-DM [...] 600 MG Clarithromy Clarithromy No justina justina diclofenac diclofenac No diclofenac [facility] sodium 75 sodium 75 sodium 75 [facility] mg mg mg dic tablet,morenita tablet,morenita tablet,del Sports yed release yed release ayed M edicin release e ibuprofen ibuprofen No ibuprofen [facility] 600 mg 600 mg 600 mg [facility] tablet tablet tablet dic Sports Medicin e losartan losartan No losartan Aza sarah beth 100 mg 100 mg 100 mg [facility] tablet tablet tablet dic Sports Medicin e mupirocin 2 mupirocin 2 No mupirocin [facility] % topical % topical 2 % Orth[facility] pe ointment ointment topical dic ointment Sports Medicin e omeprazole omeprazole No omeprazole [facility] 40 mg 40 mg 40 mg [facility] capsule,del capsule,del capsule,de dic ayed ayed layed Sports release release release Medici n e sulfamethox sulfamethox No sulfametho [facility] azole 800 azole 800 xazole 800 [facility] mg-trimetho mg-trimetho mg-trimeth dic prim 160 mg prim 160 mg oprim 160 Sports tablet tablet mg tablet Medici n e Amlodipine Amlodipine Yes Mu (Prior Common Besylate Besylate [place] Auth: Rx Spi rit Ref#:[id number] - [facility] 8) [facility] HydrOXYzine HydrOXYzine Yes Mu not Common HCl HCl [place] defined [facility] Gabapentin Gabapentin Yes Mu not Common [place] defined [facility] Clarithromy Clarithromy Yes Mu not Common justina justina [place] defined [facility] Amoxicillin Amoxicillin Yes Mu not Common [place] defined [facility] MethylPREDN MethylPREDN Yes Mu not Common ISolone ISolone [place] defined [facility] Flucelvax Flucelvax Yes Mu not Co mmon Quadrivalen Quadrivalen [place] defined [facility] Omeprazole Omeprazole Yes Mu not Common [place] defined [facility] Cephalexin Cephalexin Yes Mu not Common [place] defined [facility] Losartan Losartan Yes Mu TAKE 1 Co mmon Potassium Potassium [place] TABLET BY Spirit MOUTH - [facility] EVERY DAY [facility] Meloxicam Meloxicam Yes Mu not Co mmon [place] defined [facility] Diclofenac Diclofenac Yes Mu TAKE 1 Common Sodium Sodium [place] TABLET BY Spirit MOUTH - [facility] TWICE A [facility] Sulfamethox Sulfamethox Yes Mu TAKE 1 Common azole-Trime azole-Trime [place] TABLET BY Spirit thoprim thoprim MOUTH - [facility] EVERY [address] HOURS FOR [address] Mupirocin Mupirocin Yes Mu APPLY TO Common [place] AFFECTED Spirit AREA TWICE - [facility] A DAY FOR [address] Promethazin Promethazin No e-DM e-DM Metformin Metformin [...] traZODone traZODone No traZODone HCl HCl HCl Immunizations Ordered Filled Immunization Date Status Comments [facility] e Immunization Name Name Influenza Virus 2022-07-30 [...] Medica l Im,[facility] [place] 65+ Influenza vaccine, Influenza vaccine, 2022-07-30 Completed [facility] quadrivalent, quadrivalent, 00:00:00 Sports M edicine adjuvanted adjuvanted Moderna COVID-19 2020-12-25 Completed Vaccine 00:00:00 Moderna COVID-19 2020-12-25 Completed Vaccine 00:00:00 Moderna COVID-19 2020-12-25 Completed Vaccine 00:00:00 Moderna COVID-19 2020-12-25 Completed Vaccine 00:00:00 Moderna COVID-19 2020-12-25 Completed Vaccine 00:00:00 Moderna COVID-19 2020-12-25 Completed Vaccine 00:00:00 Moderna COVID-19 2020-12-25 Completed Vaccine 00:00:00 COVID-19, mRNA, COVID-19, mRNA, 2020-12-25 Completed [facility] LNP-S, PF, 100 LNP-S, PF, 100 00:00:00 Sports Medicine mcg/0.5 mL dose mcg/0.5 mL dose (Moderna) (Moderna) Moderna COVID-19 2020-11-24 Completed Vaccine 00:00:00 Moderna COVID-19 2020-11-24 Completed Vaccine 00:00:00 Moderna COVID-19 2020-11-24 Completed Vaccine 00:00:00 Moderna COVID-19 2020-11-24 Completed Vaccine 00:00:00 Moderna COVID-19 2020-11-24 Completed Vaccine 00:00:00 Moderna COVID-19 2020-11-24 Completed Vaccine 00:00:00 Moderna COVID-19 2020-11-24 Completed Vaccine 00:00:00 COVID-19, mRNA, COVID-19, mRNA, 2020-11-24 Completed [facility] LNP-S, PF, 100 LNP-S, PF, 100 00:00:00 Sports Medicine mcg/0.5 mL dose mcg/0.5 mL dose (Moderna) (Moderna) Bupivicaine [place] Bupivicaine [place] 2020-06-12 Completed [facility] - 15:06:00 [facility] Kenalog Kenalog 2020-06-12 Completed [facility] - (Triamcinolone) (Triamcinolone) 15:06:00 [facility] Bupivicaine [place] Bupivicaine [place] 2020-06-12 Completed [facility] - 15:06:00 [facility] Kenalog Kenalog 2020-06-12 Completed [facility] - (Triamcinolone) (Triamcinolone) 15:06:00 [facility] Bupivicaine [place] Bupivicaine [place] 2020-06-12 Completed [facility] - 15:06:00 [facility] Kenalog Kenalog 2020-06-12 Completed [facility] - (Triamcinolone) (Triamcinolone) 15:06:00 [facility] Bupivicaine [place] Bupivicaine [place] 2020-06-12 Completed [facility] - 15:06:00 [facility] Kenalog Kenalog 2020-06-12 Completed [facility] - (Triamcinolone) (Triamcinolone) 15:06:00 [facility] Bupivicaine [place] Bupivicaine [place] 2020-06-12 Completed [facility] - 15:06:00 [facility] Kenalog Kenalog 2020-06-12 Completed [facility] - (Triamcinolone) (Triamcinolone) 15:06:00 [facility] Bupivicaine [place] Bupivicaine [place] 2020-06-12 Completed [facility] - 15:06:00 [facility] Kenalog Kenalog 2020-06-12 Completed [facility] - (Triamcinolone) (Triamcinolone) 15:06:00 [facility] Bupivicaine [place] Bupivicaine [place] 2020-06-12 Completed [facility] - 15:06:00 [facility] Kenalog Kenalog 2020-06-12 Completed [facility] - (Triamcinolone) (Triamcinolone) 15:06:00 [facility] Bupivicaine [place] Bupivicaine [place] 2020-06-12 Completed [facility] - 15:06:00 [facility] Kenalog Kenalog 2020-06-12 Completed [facility] - (Triamcinolone) (Triamcinolone) 15:06:00 [facility] Hyalgan 20 mg Hyalgan 20 mg 2020-02-02 Completed [facility] - 13:53:00 [facility] Hyalgan 20 mg Hyalgan 20 mg 2020-02-02 Completed [facility] - 13:53:00 [facility] Hyalgan 20 mg Hyalgan 20 mg 2020-02-02 Completed [facility] - 13:53:00 [facility] Hyalgan 20 mg Hyalgan 20 mg 2020-02-02 Completed [facility] - 13:53:00 [facility] Hyalgan 20 mg Hyalgan 20 mg 2020-02-02 Completed [facility] - 13:53:00 [facility] Hyal[place] 20 mg Hyalgan 20 mg 2020-02-02 Completed [facility] - 13:53:00 [facility] Hyalgan 20 mg Hyalgan 20 mg 2020-02-02 Completed [facility] - 13:53:00 [facility] Hyalgan 20 mg Hyalgan 20 mg 2020-02-02 Completed [facility] - 13:53:00 [facility] Hyalgan 20 mg Hyalgan 20 mg 2020-01-26 Completed [facility] - 15:28:00 [facility] Hyalgan 20 mg Hyalgan 20 mg 2020-01-26 Completed [facility] - 15:28:00 [facility] Hyalgan 20 mg Hyalgan 20 mg 2020-01-26 Completed [facility] - 15:28:00 [facility] Hyalgan 20 mg Hyalgan 20 mg 2020-01-26 Completed [facility] - 15:28:00 [facility] Hyalgan 20 mg Hyalgan 20 mg 2020-01-26 Completed [facility] - 15:28:00 [facility] Hyalgan 20 mg Hyalgan 20 mg 2020-01-26 Completed [facility] - 15:28:00 [facility] Hyalgan 20 mg Hyalgan 20 mg 2020-01-26 Completed [facility] - 15:28:00 [facility] Hyalgan 20 mg Hyalgan 20 mg 2020-01-26 Completed [facility] - 15:28:00 [facility] Hyalgan 20 mg Hyalgan 20 mg 2020-01-16 Completed [facility] - 15:56:00 [facility] Hyalgan 20 mg Hyalgan 20 mg 2020-01-16 Completed [facility] - 15:56:00 [facility] Hyalgan 20 mg Hyalgan 20 mg 2020-01-16 Completed [facility] - 15:56:00 [facility] Hyalgan 20 mg Hyalgan 20 mg 2020-01-16 Completed [facility] - 15:56:00 [facility] Hyalgan 20 mg Hyalgan 20 mg 2020-01-16 Completed [facility] - 15:56:00 [facility] Hyalgan 20 mg Hyalgan 20 mg 2020-01-16 Completed [facility] - 15:56:00 [facility] Hyalgan 20 mg Hyalgan 20 mg 2020-01-16 Completed [facility] - 15:56:00 [facility] Hyalgan 20 mg Hyalgan 20 mg 2020-01-16 Completed [facility] - 15:56:00 [facility] Bupivicaine [place] Bupivicaine [place] 2019-12-21 Completed [facility] - 13:51:00 [facility] Bupivicaine [place] Bupivicaine [place] 2019-12-21 Completed [facility] - 13:51:00 [facility] Bupivicaine [place] Bupivicaine [place] 2019-12-21 Completed [facility] - 13:51:00 [facility] Bupivicaine [place] Bupivicaine [place] 2019-12-21 Completed [facility] - 13:51:00 [facility] Bupivicaine [place] Bupivicaine [place] 2019-12-21 Completed [facility] - 13:51:00 [facility] Bupivicaine [place] Bupivicaine [place] 2019-12-21 Completed [facility] - 13:51:00 [facility] Bupivicaine [place] Bupivicaine [place] 2019-12-21 Completed [facility] - 13:51:00 [facility] Bupivicaine [place] Bupivicaine [place] 2019-12-21 Completed [facility] - 13:51:00 [facility] Kenalog Kenalog 2019-12-21 Completed [facility] - (Triamcinolone) (Triamcinolone) 13:50:00 [facility] Kenalog Kenalog 2019-12-21 Completed [facility] - (Triamcinolone) (Triamcinolone) 13:50:00 [facility] Kenalog Kenalog 2019-12-21 Completed [facility] - (Triamcinolone) (Triamcinolone) 13:50:00 [facility] Kenalog Kenalog 2019-12-21 Completed [facility] - (Triamcinolone) (Triamcinolone) 13:50:00 [facility] Kenalog Kenalog 2019-12-21 Completed [facility] - (Triamcinolone) (Triamcinolone) 13:50:00 [facility] Kenalog Kenalog 2019-12-21 Completed [facility] - (Triamcinolone) (Triamcinolone) 13:50:00 [facility] Kenalog Kenalog 2019-12-21 Completed [facility] - (Triamcinolone) (Triamcinolone) 13:50:00 [facility] Alex Johnson 2019-12-21 Completed [facility] - (Triamcinolone) (Triamcinolone) 13:50:00 [facility] Alex Johnson 2019-07-11 Completed [facility] - (Triamcinolone) (Triamcinolone) 15:14:00 [facility] Alex Johnson 2019-07-11 Completed [facility] - (Triamcinolone) (Triamcinolone) 15:14:00 [facility] Alex Johnson 2019-07-11 Completed [facility] - (Triamcinolone) (Triamcinolone) 15:14:00 [facility] Alex Johnson 2019-07-11 Completed [facility] - (Triamcinolone) (Triamcinolone) 15:14:00 [facility] Alex Johnson 2019-07-11 Completed [facility] - (Triamcinolone) (Triamcinolone) 15:14:00 [facility] Alex Johnson 2019-07-11 Completed [facility] - (Triamcinolone) (Triamcinolone) 15:14:00 [facility] Alex Johnson 2019-07-11 Completed [facility] - (Triamcinolone) (Triamcinolone) 15:14:00 [facility] Alex Johnson 2019-07-11 Completed [facility] - (Triamcinolone) (Triamcinolone) 15:14:00 [facility] LIDOCAINE HCL LIDOCAINE HCL 2019-07-11 Completed [facility] - 10MG/ML 10MG/ML 15:12:00 [facility] LIDOCAINE HCL LIDOCAINE HCL 2019-07-11 Completed [facility] - 10MG/ML 10MG/ML 15:12:00 [facility] LIDOCAINE HCL LIDOCAINE HCL 2019-07-11 Completed [facility] - 10MG/ML 10MG/ML 15:12:00 [facility] LIDOCAINE HCL LIDOCAINE HCL 2019-07-11 Completed [facility] - 10MG/ML 10MG/ML 15:12:00 [facility] LIDOCAINE HCL LIDOCAINE HCL 2019-07-11 Completed [facility] - 10MG/ML 10MG/ML 15:12:00 [facility] LIDOCAINE HCL LIDOCAINE HCL 2019-07-11 Completed [facility] - 10MG/ML 10MG/ML 15:12:00 [facility] LIDOCAINE HCL LIDOCAINE HCL 2019-07-11 Completed [facility] - 10MG/ML 10MG/ML 15:12:00 [facility] LIDOCAINE HCL LIDOCAINE HCL 2019-07-11 Completed [facility] - 10MG/ML 10MG/ML 15:12:00 [facility] Hyalgan 20 mg Hyalgan 20 mg 2019-04-05 Completed [facility] - 10:54:00 [facility] [place] 20 mg Hyalgan 20 mg 2019-04-05 Completed [facility] - 10:54:00 [facility] Hyal[place] 20 mg Hyalgan 20 mg 2019-04-05 Completed [facility] - 10:54:00 [facility] Hyal[place] 20 mg Hyalgan 20 mg 2019-04-05 Completed [facility] - 10:54:00 [facility] [place]al[place] 20 mg Hyalgan 20 mg 2019-04-05 Completed [facility] - 10:54:00 [facility] Hyal[place] 20 mg Hyalgan 20 mg 2019-04-05 Completed [facility] - 10:54:00 [facility] Hyal[place] 20 mg Hyalgan 20 mg 2019-04-05 Completed [facility] - 10:54:00 [facility] [place]al[place] 20 mg Hyalgan 20 mg 2019-04-05 Completed [facility] - 10:54:00 [facility] Hyal[place] 20 mg Hyalgan 20 mg 2019-03-29 Completed [facility] - 10:53:00 [facility] [place]al[place] 20 mg Hyalgan 20 mg 2019-03-29 Completed [facility] - 10:53:00 [facility] Hyal[place] 20 mg Hyalgan 20 mg 2019-03-29 Completed [facility] - 10:53:00 [facility] Hyal[place] 20 mg Hyalgan 20 mg 2019-03-29 Completed [facility] - 10:53:00 [facility] [place]al[place] 20 mg Hyalgan 20 mg 2019-03-29 Completed [facility] - 10:53:00 [facility] [place] 20 mg Hyalgan 20 mg 2019-03-29 Completed [facility] - 10:53:00 [facility] [place] 20 mg Hyalgan 20 mg 2019-03-29 Completed [facility] - 10:53:00 [facility] [place] 20 mg Hyalgan 20 mg 2019-03-29 Completed [facility] - 10:53:00 [facility] Alex Johnson 2019-03-22 Completed [facility] - (Triamcinolone) (Triamcinolone) 11:02:00 [facility] Alex Johnson 2019-03-22 Completed [facility] - (Triamcinolone) (Triamcinolone) 11:02:00 [facility] Alex Johnson 2019-03-22 Completed [facility] - (Triamcinolone) (Triamcinolone) 11:02:00 [facility] Alex Johnson 2019-03-22 Completed [facility] - (Triamcinolone) (Triamcinolone) 11:02:00 [facility] Alex Johnson 2019-03-22 Completed [facility] - (Triamcinolone) (Triamcinolone) 11:02:00 [facility] Alex Johnson 2019-03-22 Completed [facility] - (Triamcinolone) (Triamcinolone) 11:02:00 [facility] Alex Johnson 2019-03-22 Completed [facility] - (Triamcinolone) (Triamcinolone) 11:02:00 [facility] Alex Johnson 2019-03-22 Completed [facility] - (Triamcinolone) (Triamcinolone) 11:02:00 [facility] LIDOCAINE HCL LIDOCAINE HCL 2019-03-22 Completed [facility] - 10MG/ML 10MG/ML 11:01:00 [facility] LIDOCAINE HCL LIDOCAINE HCL 2019-03-22 Completed [facility] - 10MG/ML 10MG/ML 11:01:00 [facility] LIDOCAINE HCL LIDOCAINE HCL 2019-03-22 Completed [facility] - 10MG/ML 10MG/ML 11:01:00 [facility] LIDOCAINE HCL LIDOCAINE HCL 2019-03-22 Completed [facility] - 10MG/ML 10MG/ML 11:01:00 [facility] LIDOCAINE HCL LIDOCAINE HCL 2019-03-22 Completed [facility] - 10MG/ML 10MG/ML 11:01:00 [facility] LIDOCAINE HCL LIDOCAINE HCL 2019-03-22 Completed [facility] - 10MG/ML 10MG/ML 11:01:00 [facility] LIDOCAINE HCL LIDOCAINE HCL 2019-03-22 Completed [facility] - 10MG/ML 10MG/ML 11:01:00 [facility] LIDOCAINE HCL LIDOCAINE HCL 2019-03-22 Completed [facility] - 10MG/ML 10MG/ML 11:01:00 [facility] Hyalgan 20 mg Hyalgan 20 mg 2019-03-22 Completed [facility] - 10:58:00 [facility] Hyalgan 20 mg Hyalgan 20 mg 2019-03-22 Completed [facility] - 10:58:00 [facility] Hyalgan 20 mg Hyalgan 20 mg 2019-03-22 Completed [facility] - 10:58:00 [facility] Hyalgan 20 mg Hyalgan 20 mg 2019-03-22 Completed [facility] - 10:58:00 [facility] Hyalgan 20 mg Hyalgan 20 mg 2019-03-22 Completed [facility] - 10:58:00 [facility] Hyalgan 20 mg Hyalgan 20 mg 2019-03-22 Completed [facility] - 10:58:00 [facility] Hyalgan 20 mg Hyalgan 20 mg 2019-03-22 Completed [facility] - 10:58:00 [facility] Hyalgan 20 mg Hyalgan 20 mg 2019-03-22 Completed [facility] - 10:58:00 [facility] Vital Signs Vital Name Observation Time Observation Value Comments Source Systolic blood 2022-07-30 19:50:00 134 mm[Hg] [facility] Diastolic blood 2022-07-30 19:50:00 83 mm[Hg] [facility] Heart rate 2022-07-30 19:50:00 77 /min [facility] Body temperature 2022-07-30 19:50:00 36.5 [facility] Respiratory rate 2022-07-30 19:50:00 17 /min [facility] height 2022-07-30 19:50:00 144.8 cm [facility] Body weight 2022-07-30 19:50:00 108.909 kg [facility] BMI 2022-07-30 19:50:00 51.96 kg/m2 [facility] Oxygen saturation in 2022-07-30 19:50:00 91 /min [facility] Arterial blood by [facility] Pulse oximetry Branch height 2022-04-14 13:45:00 60 [in_i] [facility] weight 2022-04-14 13:45:00 220 [lb_av] [facility] bmi 2022-04-14 13:45:00 42.96 kg/m2 [facility] blood pressure 2022-04-14 13:45:00 145 mm[Hg] [facility] blood pressure 2022-04-14 13:45:00 84 mm[Hg] [facility] diastolic [facility] height 2021-12-24 14:30:00 60 [in_i] [facility] weight 2021-12-24 14:30:00 221 [lb_av] [facility] temperature 2021-12-24 14:30:00 98.2 [degF] [facility] bmi 2021-12-24 14:30:00 43.16 kg/m2 [facility] blood pressure 2021-12-24 14:30:00 130 mm[Hg] [facility] blood pressure 2021-12-24 14:30:00 84 mm[Hg] [facility] height 2021-10-22 13:45:00 60 [in_i] [facility] weight 2021-10-22 13:45:00 225 [lb_av] [facility] temperature 2021-10-22 13:45:00 97.8 [degF] [facility] bmi 2021-10-22 13:45:00 43.94 kg/m2 [facility] blood pressure 2021-10-22 13:45:00 136 mm[Hg] [facility] blood pressure 2021-10-22 13:45:00 84 mm[Hg] [facility] height 2021-10-01 15:30:00 60 [in_i] [facility] weight 2021-10-01 15:30:00 225 [lb_av] [facility] 2021-10-01 15:30:00 43.94 kg/m2 [facility] blood pressure 2021-10-01 15:30:00 140 mm[Hg] [facility] blood pressure 2021-10-01 15:30:00 79 mm[Hg] [facility] diastolic [facility] height 2021-08-26 15:45:00 60 [in_i] [facility] weight 2021-08-26 15:45:00 225 [lb_av] [facility] temperature 2021-08-26 15:45:00 98.4 [degF] [facility] bmi 2021-08-26 15:45:00 43.94 kg/m2 [facility] blood pressure 2021-08-26 15:45:00 146 mm[Hg] [facility] systolic [facility] blood pressure 2021-08-26 15:45:00 82 mm[Hg] [facility] diastolic [facility] height 2021-08-01 10:30:00 60 [in_i] [facility] weight 2021-08-01 10:30:00 225 [lb_av] [facility] bmi 2021-08-01 10:30:00 43.94 kg/m2 [facility] blood pressure 2021-08-01 10:30:00 142 mm[Hg] [facility] systolic [facility] blood pressure 2021-08-01 10:30:00 72 mm[Hg] [facility] height 2021-07-25 11:00:00 60 [in_i] [facility] weight 2021-07-25 11:00:00 225 [lb_av] [facility] temperature 2021-07-25 11:00:00 97.3 [degF] [facility] bmi 2021-07-25 11:00:00 43.94 kg/m2 [facility] blood pressure 2021-07-25 11:00:00 140 mm[Hg] [facility] systolic [facility] blood pressure 2021-07-25 11:00:00 92 mm[Hg] [facility] diastolic [facility] height 2021-05-09 16:12:00 60 [in_i] [facility] weight 2021-05-09 16:12:00 220 [lb_av] [facility] bmi 2021-05-09 16:12:00 42.96 kg/m2 [facility] BP Systolic 2022-09-03 17:16:00 BP Diastolic 2022-09-03 17:16:00 Weight Measured 2022-09-03 17:16:00 235.60 pounds Height Measured 2022-09-03 17:16:00 59.00 inches Body Temperature 2022-09-03 17:16:00 Heart Rate 2022-09-03 17:16:00 Respiratory Rate 2022-09-03 17:16:00 BP Systolic 2022-09-01 13:17:00 139 mm[Hg] BP Diastolic 2022-09-01 13:17:00 70 mm[Hg] Weight Measured 2022-09-01 13:17:00 235.60 pounds Height Measured 2022-09-01 13:17:00 59.00 inches Body Temperature 2022-09-01 13:17:00 97.40 degrees Heart Rate 2022-09-01 13:17:00 93.00 /min Respiratory Rate 2022-09-01 13:17:00 24.00 /min BP Systolic 2022-07-31 08:43:00 132 mm[Hg] BP [...] Procedure Date / Time Performed Performing Clinician Sour e XR, knee, 3 view 2022-10-09 00:00:[address] [facility] opedic Sports Medicine FLU 2022-07-30 20:03:02 [facility] VACC(),65+YR, Medical B ranch 0.5 ML,IM,ADJUVANTED,QUAD( FLUAD) ASSIGNMENT OF BENEFITS 2022-07-30 19:33:55 Doctor Unassigned, No [facility] Name Medical Branch REFERRAL- 2022-07-03 05:01:00 Doctor Unassigned, No [facility] REQUEST/RESPONSE Name Medical Branch Plan of Care Planned Activity Planned Date Details Comments Source Goal Plan of Care Note [code = 93584-5] Goal Plan of Care Note [code = 03417-2] Goal Plan of Care Note [code = 25440-0] Goal Plan of Care Note [code = 56176-8] Goal Plan of Care Note [code = 78082-3] Goal Plan of Care Note [code = 47775-8] Goal Plan of Care Note [code = 77347-0] Goal Plan of Care Note [code = 17546-7] Goal Plan of Care Note [code = 68007-2] Goal Plan of Care Note [code = 62647-2] Goal Plan of Care Note [code = 22130-1] Goal Plan of Care Note [code = 89375-9] Goal Plan of Care Note [code = 82737-0] Goal Plan of Care Note [code = 75493-1] Goal Plan of Care Note [code = 98585-8] Goal Plan of Care Note [code = 91418-5] Goal Plan of Care Note [code = 63812-5] Goal Plan of Care Note [code = 88187-3] Goal Plan of Care Note [code = 45047-3] Goal Plan of Care Note [code = 45161-6] Goal Plan of Care Note [code = 92484-7] Goal Plan of Care Note [code = 36695-7] Goal Plan of Care Note [code = 84708-6] Goal Plan of Care Note [code = 81193-2] Goal Plan of Care Note [code = 20564-3] Goal Plan of Care Note [code = 50345-0] Goal Plan of Care Note [code = 22118-2] Goal Plan of Care Note [code = 89443-7] Goal Plan of Care Note [code = 12960-1] Goal Plan of Care Note [code = 63437-9] Goal Plan of Care Note [code = 23098-3] Goal Plan of Care Note [code = 77156-9] Goal Plan of Care Note [code = 99081-5] Goal Plan of Care Note [code = 14709-2] Goal Plan of Care Note [code = 57018-5] Goal Plan of Care Note [code = 58633-6] Goal Plan of Care Note [code = 46560-9] Goal Plan of Care Note [code = 24646-3] Goal Plan of Care Note [code = 10659-5] Goal Plan of Care Note [code = 56188-2] Goal Plan of Care Note [code = 29473-8] Goal Plan of Care Note [code = 83613-5] Goal Plan of Care Note [code = 19937-1] Goal Plan of Care Note [code = 37247-2] Goal Plan of Care Note [code = 03430-3] Goal Plan of Care Note [code = 57920-1] Goal Plan of Care Note [code = 67659-6] Goal Plan of Care Note [code = 16974-4] Goal Plan of Care Note [code = 66513-3] Goal Plan of Care Note [code = 13167-1] Goal Plan of Care Note [code = 79254-4] Goal Plan of Care Note [code = 46888-2] Goal Plan of Care Note [code = 01163-8] Goal Plan of Care Note [code = 33656-5] Goal Plan of Care Note [code = 60017-0] Goal Plan of Care Note [code = 91412-9] Goal Plan of Care Note [code = 66101-7] Goal Plan of Care Note [code = 12682-3] Goal Plan of Care Note [code = 10427-4] Goal Plan of Care Note [code = 71756-7] Goal Plan of Care Note [code = 00236-9] Goal Plan of Care Note [code = 07971-0] Goal Plan of Care Note [code = 95805-5] Goal Plan of Care Note [code = 88304-6] Goal Plan of Care Note [code = 76926-2] Goal Plan of Care Note [code = 56336-2] Goal Plan of Care Note [code = 57871-1] Goal Plan of Care Note [code = 03239-6] Goal Plan of Care Note [code = 98247-9] Goal Plan of Care Note [code = 19849-8] Goal Plan of Care Note [code = 67691-4] Goal Plan of Care Note [code = 99304-9] Goal Plan of Care Note [code = 70210-5] Goal Plan of Care Note [code = 91267-6] Goal Plan of Care Note [code = 24843-1] Goal Plan of Care Note [code = 72110-7] Goal Plan of Care Note [code = 85766-2] Goal Plan of Care Note [code = 19051-3] Goal Plan of Care Note [code = 01350-4] Goal Plan of Care Note [code = 85920-8] Goal Plan of Care Note [code = 03119-5] Goal Plan of Care Note [code = 52735-0] Goal Plan of Care Note [code = 18241-1] Goal Plan of Care Note [code = 49811-7] Goal Plan of Care Note [code = 81391-9] Goal Plan of Care Note [code = 14859-4] Goal Plan of Care Note [code = 19510-2] Goal Plan of Care Note [code = 09033-3] Goal Plan of Care Note [code = 99438-3] Goal Plan of Care Note [code = 88797-7] Goal Plan of Care Note [code = 67770-0] Goal Plan of Care Note [code = 71758-4] Goal Plan of Care Note [code = 62137-1] Goal Plan of Care Note [code = 12230-5] Goal Plan of Care Note [code = 43501-6] Goal Plan of Care Note [code = 27110-3] Goal Plan of Care Note [code = 85679-8] Goal Plan of Care Note [code = 39696-9] Goal Plan of Care Note [code = 07592-5] Goal Plan of Care Note [code = 33115-6] Goal Plan of Care Note [code = 42495-5] Goal Plan of Care Note [code = 49280-3] Goal Plan of Care Note [code = 26257-6] Goal Plan of Care Note [code = 20379-4] Goal Plan of Care Note [code = 65473-4] Goal Plan of Care Note [code = 48761-4] Goal Plan of Care Note [code = 09218-0] Goal Plan of Care Note [code = 85954-3] Goal Plan of Care Note [code = 64885-3] Goal Plan of Care Note [code = 32437-1] Goal Plan of Care Note [code = 77690-8] Goal Plan of Care Note [code = 57132-8] Goal Plan of Care Note [code = 40080-5] Goal Plan of Care Note [code = 99469-7] Goal Plan of Care Note [code = 69606-9] Goal Plan of Care Note [code = 53947-3] Goal Plan of Care Note [code = 65259-1] Goal Plan of Care Note [code = 05136-9] Goal Plan of Care Note [code = 66077-4] Goal Plan of Care Note [code = 43336-3] Goal Plan of Care Note [code = 34161-9] Goal Plan of Care Note [code = 45253-9] Goal Plan of Care Note [code = 71268-2] Goal Plan of Care Note [code = 49624-0] Goal Plan of Care Note [code = 88702-2] Goal Plan of Care Note [code = 08564-0] Goal Plan of Care Note [code = 06706-2] Goal Plan of Care Note [code = 77727-5] Goal Plan of Care Note [code = 60502-7] Goal Plan of Care Note [code = 83052-5] Goal Plan of Care Note [code = 14445-8] Goal Plan of Care Note [code = 31361-0] Goal Plan of Care Note [code = 73461-7] Goal Plan of Care Note [code = 42548-1] Goal Plan of Care Note [code = 13186-2] Goal Plan of Care Note [code = 67826-4] Goal Plan of Care Note [code = 23159-7] Goal Plan of Care Note [code = 32793-3] Goal Plan of Care Note [code = 80766-4] Goal Plan of Care Note [code = 85798-6] Goal Plan of Care Note [code = 84764-0] Goal Plan of Care Note [code = 68520-0] Goal Plan of Care Note [code = 40574-6] Goal Plan of Care Note [code = 57188-2] Goal Plan of Care Note [code = 52526-5] Goal Plan of Care Note [code = 71302-4] Goal Plan of Care Note [code = 40830-3] Goal Plan of Care Note [code = 28790-5] Goal Plan of Care Note [code = 93060-1] Goal Plan of Care Note [code = 81875-6] Goal Plan of Care Note [code = 78357-2] Goal Plan of Care Note [code = 83517-0] Goal Plan of Care Note [code = 20813-9] Goal Plan of Care Note [code = 05663-2] Goal Plan of Care Note [code = 85948-6] Goal Plan of Care Note [code = 96407-3] Goal Plan of Care Note [code = 41020-6] Goal Plan of Care Note [code = 98326-1] Goal Plan of Care Note [code = 15716-0] Goal Plan of Care Note [code = 02566-1] Goal Plan of Care Note [code = 30641-0] Goal Plan of Care Note [code = 20019-9] Goal Plan of Care Note [code = 99153-4] Goal Plan of Care Note [code = 76316-2] Goal Plan of Care Note [code = 20081-3] Goal Plan of Care Note [code = 83695-7] Goal Plan of Care Note [code = 38658-3] Goal Plan of Care Note [code = 19026-9] Goal Plan of Care Note [code = 38902-4] Goal Plan of Care Note [code = 41810-6] Goal Plan of Care Note [code = 42050-6] Goal Plan of Care Note [code = 73929-2] Goal Plan of Care Note [code = 24959-4] Goal Plan of Care Note [code = 65473-1] Goal Plan of Care Note [code = 72635-0] Goal Plan of Care Note [code = 25716-4] Goal Plan of Care Note [code = 84382-8] Goal Plan of Care Note [code = 43688-3] Goal Plan of Care Note [code = 91808-6] Goal Plan of Care Note [code = 87545-5] Goal Plan of Care Note [code = 52741-1] Goal Plan of Care Note [code = 95117-3] Goal Plan of Care Note [code = 89051-0] Goal Plan of Care Note [code = 34904-5] Goal Plan of Care Note [code = 57222-9] Goal Plan of Care Note [code = 48672-5] Goal Plan of Care Note [code = 89874-0] Goal Plan of Care Note [code = 47763-7] Goal Plan of Care Note [code = 64369-8] Goal Plan of Care Note [code = 72479-8] Goal Plan of Care Note [code = 04648-5] Goal Plan of Care Note [code = 07916-0] Goal Plan of Care Note [code = 66381-8] Goal Plan of Care Note [code = 56215-4] Goal Plan of Care Note [code = 02063-8] Goal Plan of Care Note [code = 01412-6] Goal Plan of Care Note [code = 85963-1] Goal Plan of Care Note [code = 73850-1] Goal Plan of Care Note [code = 96813-4] Goal Plan of Care Note [code = 19476-8] Goal Plan of Care Note [code = 03819-1] Goal Plan of Care Note [code = 72494-5] Goal Plan of Care Note [code = 90699-6] Goal Plan of Care Note [code = 40396-7] Goal Plan of Care Note [code = 81035-0] Goal Plan of Care Note [code = 36168-9] Goal Plan of Care Note [code = 22458-4] Goal Plan of Care Note [code = 72454-5] Goal Plan of Care Note [code = 54027-6] Goal Plan of Care Note [code = 48521-9] Goal Plan of Care Note [code = 96400-8] Goal Plan of Care Note [code = 92593-1] Goal Plan of Care Note [code = 60693-9] Goal Plan of Care Note [code = 91912-0] Goal Plan of Care Note [code = 48813-4] Goal Plan of Care Note [code = 70538-8] Goal Plan of Care Note [code = 22983-7] Goal Plan of Care Note [code = 07102-7] Goal Plan of Care Note [code = 20098-8] Goal Plan of Care Note [code = 55894-1] Goal Plan of Care Note [code = 98691-3] Goal Plan of Care Note [code = 17933-5] Goal Plan of Care Note [code = 96028-8] Goal Plan of Care Note [code = 20945-6] Goal Plan of Care Note [code = 84153-9] Goal Plan of Care Note [code = 24202-8] Goal Plan of Care Note [code = 42641-3] Goal Plan of Care Note [code = 56089-2] Goal Plan of Care Note [code = 34344-9] Goal Plan of Care Note [code = 13306-5] Goal Plan of Care Note [code = 90852-2] Goal Plan of Care Note [code = 32354-6] Goal Plan of Care Note [code = 88508-0] Goal Plan of Care Note [code = 15996-2] Goal Plan of Care Note [code = 67558-2] Goal Plan of Care Note [code = 28942-2] Goal Plan of Care Note [code = 93978-7] Goal Plan of Care Note [code = 99207-7] Goal Plan of Care Note [code = 66033-0] Goal Plan of Care Note [code = 78580-5] Goal Plan of Care Note [code = 03615-1] Goal Plan of Care Note [code = 80080-6] Goal Plan of Care Note [code = 65036-3] Goal Plan of Care Note [code = 64450-6] Goal Plan of Care Note [code = 26886-0] Goal Plan of Care Note [code = 08451-6] Goal Plan of Care Note [code = 46617-8] Goal Plan of Care Note [code = 68879-7] Goal Plan of Care Note [code = 57965-6] Goal Plan of Care Note [code = 71892-6] Goal Plan of Care Note [code = 59006-8] Goal Plan of Care Note [code = 86437-6] Goal Plan of Care Note [code = 00514-4] Goal Plan of Care Note [code = 89370-1] Goal Plan of Care Note [code = 51906-4] Goal Plan of Care Note [code = 20185-9] Goal Plan of Care Note [code = 14888-9] Goal Plan of Care Note [code = 65892-8] Goal Plan of Care Note [code = 95180-6] Goal Plan of Care Note [code = 23066-2] Goal Plan of Care Note [code = 31984-9] Goal Plan of Care Note [code = 48715-2] Goal Plan of Care Note [code = 87207-9] Goal Plan of Care Note [code = 80965-9] Goal Plan of Care Note [code = 36465-2] Goal Plan of Care Note [code = 97693-0] Goal Plan of Care Note [code = 54689-5] Goal Plan of Care Note [code = 72559-3] Goal Plan of Care Note [code = 14549-8] Goal Plan of Care Note [code = 82311-5] Goal Plan of Care Note [code = 73481-6] Goal Plan of Care Note [code = 18234-3] Goal Plan of Care Note [code = 75379-2] Goal Plan of Care Note [code = 82312-5] Goal Plan of Care Note [code = 64756-8] Goal Plan of Care Note [code = 72546-9] Goal Plan of Care Note [code = 44200-1] Goal Plan of Care Note [code = 27443-9] Goal Plan of Care Note [code = 44356-4] Goal Plan of Care Note [code = 85186-1] Goal Plan of Care Note [code = 00839-6] Goal Plan of Care Note [code = 83031-2] Goal Plan of Care Note [code = 18811-3] Goal Plan of Care Note [code = 89540-3] Goal Plan of Care Note [code = 13680-2] Goal Plan of Care Note [code = 38105-0] Goal Plan of Care Note [code = 06625-7] Goal Plan of Care Note [code = 55174-7] Goal Plan of Care Note [code = 67307-8] Goal Plan of Care Note [code = 54392-4] Goal Plan of Care Note [code = 97370-7] Goal Plan of Care Note [code = 79032-9] Goal Plan of Care Note [code = 29298-2] Goal Plan of Care Note [code = 80524-5] Goal Plan of Care Note [code = 20701-5] Goal Plan of Care Note [code = 09008-6] Goal Plan of Care Note [code = 08151-3] Goal Plan of Care Note [code = 20866-4] Goal Plan of Care Note [code = 25446-0] Goal Plan of Care Note [code = 95189-6] Goal Plan of Care Note [code = 23096-8] Goal Plan of Care Note [code = 90191-9] Goal Plan of Care Note [code = 26767-6] Goal Plan of Care Note [code = 30770-3] Goal Plan of Care Note [code = 09182-7] Goal Plan of Care Note [code = 20729-9] Goal Plan of Care Note [code = 25163-2] Goal Plan of Care Note [code = 37593-9] Goal Plan of Care Note [code = 45740-6] Goal Plan of Care Note [code = 96685-9] Goal Plan of Care Note [code = 06218-9] Goal Plan of Care Note [code = 63327-7] Goal Plan of Care Note [code = 48630-4] Goal Plan of Care Note [code = 10072-1] Goal Plan of Care Note [code = 94564-4] Goal Plan of Care Note [code = 31636-9] Goal Plan of Care Note [code = 85673-5] Goal Plan of Care Note [code = 22651-3] Goal Plan of Care Note [code = 84519-9] Goal Plan of Care Note [code = 50783-9] Goal Plan of Care Note [code = 11073-1] Goal Plan of Care Note [code = 30324-7] Goal Plan of Care Note [code = 32962-9] Goal Plan of Care Note [code = 55281-6] Goal Plan of Care Note [code = 16712-1] Goal Plan of Care Note [code = 32245-6] Goal Plan of Care Note [code = 79674-4] Goal Plan of Care Note [code = 94475-3] Goal Plan of Care Note [code = 49790-6] Goal Plan of Care Note [code = 70016-3] Goal Plan of Care Note [code = 99625-6] Goal Plan of Care Note [code = 92280-0] Goal Plan of Care Note [code = 86320-7] Goal Plan of Care Note [code = 92445-1] Goal Plan of Care Note [code = 68387-8] Goal Plan of Care Note [code = 86116-6] Goal Plan of Care Note [code = 37415-2] Goal Plan of Care Note [code = 99547-8] Goal Plan of Care Note [code = 82558-2] Goal Plan of Care Note [code = 51424-8] Goal Plan of Care Note [code = 54673-7] Goal Plan of Care Note [code = 55433-2] Goal Plan of Care Note [code = 14629-7] Goal Plan of Care Note [code = 64514-2] Goal Plan of Care Note [code = 23206-6] Goal Plan of Care Note [code = 26904-7] Goal Plan of Care Note [code = 03945-9] Goal Plan of Care Note [code = 21196-6] Goal Plan of Care Note [code = 43398-6] Goal Plan of Care Note [code = 41533-9] Goal Plan of Care Note [code = 35579-0] Goal Plan of Care Note [code = 19781-0] Goal Plan of Care Note [code = 78055-0] Goal Plan of Care Note [code = 21615-4] Goal Plan of Care Note [code = 33230-8] Goal Plan of Care Note [code = 68332-9] Goal Plan of Care Note [code = 48053-2] Goal Plan of Care Note [code = 47366-7] Goal Plan of Care Note [code = 26893-6] Goal Plan of Care Note [code = 42441-7] Goal Plan of Care Note [code = 37074-8] Goal Plan of Care Note [code = 39959-4] Goal Plan of Care Note [code = 67611-0] Goal Plan of Care Note [code = 53124-4] Goal Plan of Care Note [code = 74721-2] Goal Plan of Care Note [code = 70699-0] Goal Plan of Care Note [code = 39373-1] Instructions [facility] Encounters Start End Encounter Admission Attending Care Care Encounter Source Date/Time Date/Time Type Type Clinicians Facility Department ID 2022-04-10 Outpatient [facility] [id number] Common 07:57:00 [facility] 2022-04-09 Outpatient [facility]LML[facility] STLML[facility] [id number] Common 17:02:00 [facility] 2022-02-03 Outpatient [facility]LMLC STLMLC [id number] Common 10:37:15 [facility] 2021-12-23 Outpatient STLMLC STLMLC [id number] Common 14:56:00 [facility] 2021-12-04 Outpatient STLMLC STLMLC [id number] Common 15:19:00 [facility] 2021-10-29 Outpatient STLMLC STLMLC [id number] Common 16:15:01 [facility] 2021-10-21 Outpatient STLMLC STLMLC [id number] Common 15:08:00 [facility] 2021-10-16 Outpatient STLMLC STLMLC [id number] Common 14:40:22 [facility] 2021-10-16 Outpatient STLMLC STLMLC [id number] Common 14:26:36 [facility] 2021-10-16 Outpatient STLMLC STLMLC [id number] Common 14:15:34 [facility] 2021-10-16 Outpatient STLMLC STLMLC [id number] Common 14:12:05 [facility] 2021-10-16 Outpatient STLMLC STLMLC [id number] Common 14:11:16 [facility] [place] 2021-10-16 Outpatient STLMLC STLMLC [id number] Common 11:16:32 [id number] [facility] 2020-11-28 Inpatient Edna, HCAPM HCAPM [id number] HCA 10:53:18 [facility] 2023-01-22 2023-01-22 Outpatient FOG_[place] AOSM AOSM 645 [id number] Ngoc 00:00:00 00:00:00 _Kendal [id number] [facility] 2023-01-20 2023-01-20 Outpatient [facility] [id number] 023 Mio 13:32:35 13:32:35 0502 F Fred[place] 2023-01-14 2023-01-14 Outpatient FOG_[place] AOSM AOSM [id number] [id number] Ngoc 00:00:00 00:00:00 _Kendal [id number] [facility] 2022-12-10 2022-12-10 Outpatient FOG_[place] AOSM AOSM 645 [id number] Ngoc 00:00:00 00:00:00 _Kendal [id number] Orth [facility] Medic[facility] 2022-11-05 2022-11-05 Outpatient [facility]OG_[place] AOSM AOSM 645 [id number] Ngoc 00:00:00 00:00:00 _Kendal 174883 Orth [facility] Medicin e 2022-10-09 2022-10-09 Outpatient [facility]_[place] AOSM AOSM 645 3823-20 Ngoc 00:00:00 00:00:00 _Kendal 369607 Orth [facility] Medicin e 2022-10-09 2022-10-09 Rogerio A AOSM [place] - Ortho [id number] [id number] Ngoc 00:00:00 00:00:00 Suzie Caldwell MD: [id number] FOG_Ofc dic [facility], [place] [address] , Ph. [phone] 2022-09-03 2022-09-03 Outpatient [id number]- [id number]-r 00:00:00 00:00:00 Visit m44o-2l9o 84f-4f0d-9 -9214-cf8 214-cf83d5 7o6uy049o al765j 2022-09-02 2022-09-02 Outpatient FOG_[place] AOSM AOSM 645 [id number] Ngoc 00:00:00 00:00:00 _Kendal [id number] Orth ope dic Sports Medicin e 2022-09-02 2022-09-02 Outpatient FOG_[place] AOSM AOSM 645 3823-20 Ngoc 00:00:00 00:00:00 _Yadiel_ [id number] Orth ope dic Sports Medicin e 2022-09-01 2022-09-01 Outpatient SFA SFA 63083-3 022 Mio 13:12:57 13:12:57 1212 F [place] 2022-09-01 2022-09-01 Outpatient [id number]- [id number] af [id number]-5 00:00:00 00:00:00 Visit 30x7-0814 3u0-3134-4 -931d-b82 31d-h4709k 60x3u6x63 4f5f25 2022-08-27 2022-08-27 Telephone [facility] [id number] Univers 00:00:00 00:00:00 Guillerm[place]un [place] [id number] ity [place] [phone] Or dic[address] 2022-08-26 2022-08-26 Telephone [facility] [id number] [id number] Univers 00:00:00 00:00:00 Guillermojun [place] [id number] [place] [phone] Or dical NAL [address] [place] [address] 2022-08-25 2022-08-25 Telephone [facility] [id number] [id number] Univers 00:00:00 00:00:00 Qiaskye [place] [id number] [place] [id number] Or dicjeni NAL 9 [facility] 2022-08-25 2022-08-25 Telephone [facility] 1.2.258.259 [id number] Univers 00:00:00 00:00:00 Kahlil COOPERLAZ [id number] [facility] [facility] [place] [phone] [address] 2022-08-21 2022-08-21 [facility] [id number] Univers 14:00:00 23:59:00 JASONSKYE irenearmando [facility] 2022-07-31 2022-07-31 Outpatient SFA SFA [id number] 022 Mio 08:33:27 08:33:27 1110 F [place] 2022-07-31 2022-07-31 Outpatient [id number]- [id number] aa [id number] 00:00:00 00:00:00 Visit 3j9y-6494 a8u-2465-3 -845c-415 45c-415e7f i7p528z1j 721a4e 2022-07-30 2022-07-30 [facility] [id number] Univers 13:40:00 14:11:31 JASONSKYE irenearmando [facility] 2022-07-30 2022-07-30 Office [facility] [id number] [id number] Univers 13:40:00 14:11:31 Visit Kahlil LEPE [id number] [facility] [facility] [place] [phone] [address] 2022-07-30 2022-07-30 Orders Doctor IRINA [id number] [id number] Univers 00:00:00 00:00:00 Only Unassigned, YESSICA [id number] ity of [place] [facility] 4.2.7.2.686 Chandu as [phone] [address] 2022-07-18 2022-07-18 Outpatient [id number]- [id number] [id number] 00:00:00 00:00:00 Visit 2506-4a95 506-4a95-9 -39o8-nyq 9i6-xtcm0z f6bm50gfx f24ecb 2022-07-03 2022-07-03 Outpatient SFA SFA [id number] 022 Mio 14:59:47 14:59:47 1013 F [place] 2022-07-03 2022-07-03 Outpatient [id number]- [id number] [id number]-[id number] 00:00:00 00:00:00 Visit y445-38e9 876-48b5-b -r832-10y 388-45dd78 s1129w22q 16f12c 2022-07-03 2022-07-03 Orders Doctor IRINA [id number] [id number] Univers 00:00:00 00:00:00 Only Unassigned, YESSICA [id number] [place]y of [place] [facility] 4.2.7.2.686 Chandu as [phone] [address] 2022-04-14 2022-04-14 OFFICE STLMLC STLMLC [id number] Co mmon 00:00:00 00:00:00 VISIT Spirit ESTAB PT - CHI LEVEL 4 [facility] 2022-04-03 2022-04-03 Outpatient [id number]- [id number] 00:00:00 00:00:00 Visit 0pl9-2419 bd9-4992-9 -5i20-443 u14-31148p 97q9l786v 5w680y 2022-03-27 2022-03-27 Outpatient [id number]- [id number] 00:00:00 00:00:00 Visit 6r00-81n1 i58-67k4-8 -0p98-zs3 b70-ij3x9t w1og8a8e7 b9f0e5 2022-02-27 2022-02-27 (TEL) STLMLC STLMLC [id number] Co mmon 00:00:00 00:00:00 Spirit - [facility] 2022-02-25 2022-02-25 (TEL) STLMLC STLMLC [id number] Co mmon 00:00:00 00:00:00 [facility] 2022-02-03 2022-02-03 (TEL) STLMLC STLMLC [id number] Co mmon 00:00:00 00:00:00 [facility] 2022-01-13 2022-01-13 (TEL) STLMLC STLMLC [id number] Co mmon 00:00:00 00:00:00 [facility] 2022-01-01 2022-01-01 (TEL) STLMLC STLMLC [id number] Co mmon 00:00:00 00:00:00 [facility] 2021-12-26 2021-12-26 (TEL) STLMLC STLMLC [id number] Co mmon 00:00:00 00:00:00 [facility] 2021-12-24 2021-12-24 OFFICE STLMLC STLMLC [id number] Co mmon 00:00:00 00:00:00 VISIT [facility] PT - CHI LEVEL 4 [facility] 2021-12-04 2021-12-04 (TEL) STLMLC STLMLC [id number] Co mmon 00:00:00 00:00:00 [facility] 2021-11-21 2021-11-21 (TEL) STLMLC STLMLC [id number] Co mmon 00:00:00 00:00:00 [facility] 2021-10-23 2021-10-23 (TEL) STLMLC STLMLC [id number] Co mmon 00:00:00 00:00:00 [facility] 2021-10-22 2021-10-22 OFFICE STLMLC STLMLC [id number] Co mmon 00:00:00 00:00:00 VISIT [facility] PT - CHI LEVEL 4 [facility] 2021-10-17 2021-10-17 (TEL) STLMLC STLMLC [id number] Co mmon 00:00:00 00:00:00 [facility] 2021-10-17 2021-10-17 (TEL) STLMLC STLMLC [id number] Co mmon 00:00:00 00:00:00 [facility] 2021-10-15 2021-10-15 (TEL) STLMLC STLMLC [id number] Co mmon 00:00:00 00:00:00 [facility] 2021-10-08 2021-10-08 (TEL) STLMLC STLMLC [id number] Co mmon 00:00:00 00:00:00 [facility] 2021-10-01 2021-10-01 NON-BILLAB STLMLC STLMLC [id number] Common 00:00:00 00:00:00 LE VISIT [facility] 2021-08-28 2021-08-28 (TEL) STLMLC STLMLC [id number] Co mmon 00:00:00 00:00:00 [facility] 2021-08-26 2021-08-26 NON-BILLAB STLMLC STLMLC [id number] Common 00:00:00 00:00:00 LE VISIT [facility] 2021-08-19 2021-08-19 (TEL) STLMLC STLMLC [id number] Co mmon 00:00:00 00:00:00 [facility] 2021-08-05 2021-08-05 (TEL) STLMLC STLMLC [id number] Co mmon 00:00:00 00:00:00 [facility] 2021-08-01 2021-08-01 (TEL) STLMLC STLMLC [id number] Co mmon 00:00:00 00:00:00 [facility] 2021-08-01 2021-08-01 NON-BILLAB STLMLC STLMLC [id number] Common 00:00:00 00:00:00 LE VISIT [facility] 2021-07-26 2021-07-26 (TEL) STLMLC STLMLC [id number] Co mmon 00:00:00 00:00:00 [facility] 2021-07-25 2021-07-25 Postop STLMLC STLMLC [id number] Co mmon 00:00:00 00:00:00 visit [facility] 2021-07-24 2021-07-24 (TEL) STLMLC STLMLC [id number] Co mmon 00:00:00 00:00:00 [facility] 2021-07-22 2021-07-22 (TEL) STLMLC STLMLC [id number] Co mmon 00:00:00 00:00:00 [facility] 2021-07-22 2021-07-22 (TEL) STLMLC STLMLC [id number] Co mmon 00:00:00 00:00:00 [facility] 2021-07-22 2021-07-22 (TEL) STLMLC STLMLC [id number] Co mmon 00:00:00 00:00:00 [facility] 2021-07-09 2021-07-09 (TEL) STLMLC STLMLC [id number] Co mmon 00:00:00 00:00:00 [facility] 2021-07-09 2021-07-09 (TEL) STLMLC STLMLC [id number] Co mmon 00:00:00 00:00:00 [facility] 2021-07-08 2021-07-08 (TEL) STLMLC STLMLC [id number] Co mmon 00:00:00 00:00:00 [facility] 2021-07-08 2021-07-08 (TEL) STLMLC STLMLC [id number] Co mmon 00:00:00 00:00:00 [facility] 2021-06-28 2021-06-28 (TEL) STLMLC STLMLC [id number] Co mmon 00:00:00 00:00:00 [facility] 2021-06-26 2021-06-26 (TEL) STLMLC STLMLC [id number] Co mmon 00:00:00 00:00:00 [facility] 2021-05-24 2021-05-24 (TEL) STLMLC STLMLC [id number] Co mmon 00:00:00 00:00:00 [facility] 2021-05-22 2021-05-22 (TEL) STLMLC STLMLC [id number] Co mmon 00:00:00 00:00:00 [facility] 2021-05-09 2021-05-09 (TEL) STLMLC STLMLC [id number] Co mmon 00:00:00 00:00:00 [facility] 2021-03-27 2021-03-27 Outpatient STLMLC STLMLC [id number] Common 00:00:00 00:00:00 [facility] 2021-02-26 2021-02-26 Outpatient STLMLC STLMLC [id number] Common 00:00:00 00:00:00 [facility] 2021-02-21 2021-02-21 Outpatient STLMLC STLMLC [id number] Common 00:00:00 00:00:00 [facility] 2021 2021 Outpatient STLMLC STLMLC [id number] Common 00:00:00 00:00:00 [facility] 2021-02-07 2021-02-07 Outpatient STLMLC STLMLC [id number] Common 00:00:00 00:00:00 [facility] 2021-02-04 2021-02-04 Outpatient STLMLC STLMLC [id number] Common 00:00:00 00:00:00 [facility] 2021-01-17 2021-01-17 Outpatient STLMLC STLMLC [id number] Common 00:00:00 00:00:00 [facility] 2020-12-24 2020-12-24 Outpatient STLMLC STLMLC [id number] Common 00:00:00 00:00:00 [facility] 2020-11-12 2020-11-12 Outpatient STLMLC STLMLC [id number] Common 00:00:00 00:00:00 [facility] 2020-10-30 2020-10-30 Outpatient STLMLC STLMLC [id number] Common 00:00:00 00:00:00 [facility] 2020-10-17 2020-10-17 Outpatient STLMLC STLMLC [id number] Common 00:00:00 00:00:00 [facility] 2020-08-21 2020-08-21 Outpatient STLMLC STLMLC [id number] Common 00:00:00 00:00:00 [facility] 2020-07-30 2020-07-30 Outpatient STLMLC STLMLC [id number] Common 00:00:00 00:00:00 [facility] 2020-06-12 2020-06-12 Outpatient STLMLC STLMLC [id number] Common 00:00:00 00:00:00 [facility] 2020-06-12 2020-06-12 Outpatient STLMLC STLMLC [id number] Common 00:00:00 00:00:00 [facility] 2020-02-02 2020-02-02 [facility] [id number] Common 14:45:00 14:45:00 [facility] 2020-01-31 2020-01-31 Out[facility] [id number] Common 15:06:00 15:06:00 t [facility] Sp[facility] t [facility] Joint [facility] 2020-01-26 2020-01-26 Out[facility] [id number] Common 15:15:00 15:15:00 t [facility] Bone [facility] Spiri t and Joint [facility] 2020-01-18 2020-01-18 Outpatient [facility] [id number] Common 14:31:00 14:31:00 t Bone Bone and Spiri t and Joint [facility] 2020-01-16 2020-01-16 Out[facility] [id number] Common 15:30:00 15:30:00 t Bone Bone and Spiri t and Joint [facility] - [facility] 2020-01-12 2020-01-12 [facility] [id number] Common 11:16:00 11:16:00 t [facility] Bone [facility] Spiri t and Joint [facility] 2019-12-21 2019-12-21 Out[facility] [id number] Common 13:30:00 13:30:00 t [facility] Bone [facility] Spiri t and Joint [facility] 2019-12-09 2019-12-09 Out[facility] [id number] Common 10:41:00 10:41:00 t Bone Bone and Spiri t and Joint [facility] 2019-10-22 2019-10-22 Emergency X [facility] ERT [id number] Univers 15:41:04 17:21:00 MICHAELA [facility] 2019-07-11 2019-07-11 Outpatient [facility] [id number] Common 15:30:00 15:30:00 t Bone Bone and Spiri t and Joint [facility] 2019-04-05 2019-04-05 Out[facility] [id number] Common 11:00:00 11:00:00 t Bone Bone and Spiri t and Joint [facility] - [facility] 2019-03-29 2019-03-29 Outpatient [facility] [id number] Common 11:00:00 11:00:00 t Bone Bone and Spiri t and Joint [facility] 2019-03-22 2019-03-22 Outpatient [facility] [id number] Common 10:30:00 10:30:00 t Bone Bone and Spiri t and Joint [facility] - [facility] 2018-06-07 2018-06-07 Outpatient [facility] [id number] Common 14:00:00 14:00:00 t [facility] Bone [facility] Spiri t [facility] Joint [facility] Results Test Description Test Time Test Comments Results Result Comments Source COMPREHENSIVE METABOLIC PANEL 2022-08-01 00:00:00 Test Item Value Reference Range Interpretation Comme nts GLUCOSE (test code = 2217) 125 MG/DL BUN (test code = 2208) 13 MG/DL CREATININE (test code = 2214) 0.55 MG/DL eGFR (2020 CKD-EPI) (test code = 93944) 102 ML/MIN/1.73 CALC BUN/CREAT (test code = [...] code = 2219) 9 U/L COMPREHENSIVE METABOLIC [id number] 00:00:00 Test Item Value Reference Range Interpretation Comments GLUCOSE (test code = 2217) 125 MG/DL BUN (test code = 2208) 13 MG/DL CREATININE (test code = 2214) 0.55 MG/DL eGFR (2020 CKD-EPI) (test 102 ML/MIN/1.73 code = 14066) CALC BUN/CREAT (test code = 24 RATIO 2235) SODIUM (test code = 2231) 143 MEQ/L POTASSIUM (test code = 2228) 4.7 MEQ/L CHLORIDE (test code = 2215) 105 MEQ/L CARBON DIOXIDE (test code = 29 MEQ/L 2206) CALCIUM (test code = 2209) 9.5 MG/DL PROTEIN, TOTAL (test code = 7.2 G/DL 2229) ALBUMIN (test code = 2201) 4.4 G/DL CALC GLOBULIN (test code = 2.8 G/DL 2240) CALC A/G RATIO (test code = 1.6 RATIO 2234) BILIRUBIN, TOTAL (test code = 0.4 MG/DL 2206) ALKALINE PHOSPHATASE (test 109 U/L code = 2204) AST (test code = 2218) 16 U/L ALT (test code = 2219) 9 U/L LIPID [id number] 00:00:00 Test Item Value Reference Range Interpretation Comments CHOLESTEROL (test code = 2210) 145 MG/DL TRIGLYCERIDES (test code = 2232) 125 MG/DL HDL CHOLESTEROL (test code = 2220) 55 MG/DL CALC LDL CHOL (test code = 2237) 69 MG/DL RISK RATIO LDL/HDL (test code = 1.25 RATIO 2238) LIPID [id number] 00:00:00 Test Item Value Reference Range Interpretation Comments CHOLESTEROL (test code = 2210) 145 MG/DL TRIGLYCERIDES (test code = 2232) 125 MG/DL HDL CHOLESTEROL (test code = 2220) 55 MG/DL CALC LDL CHOL (test code = 2237) 69 MG/DL RISK RATIO LDL/HDL (test code = 1.25 RATIO 2238) HEMOGLOBIN [id number] 00:00:00 Test Item Value Reference Range Interpretation Comments HEMOGLOBIN A1c (test code = 69402) 6.5 % HEMOGLOBIN [id number] 00:00:00 Test Item Value Reference Range Interpretation Comments HEMOGLOBIN A1c (test code = 23007) 6.5 % HEMOGLOBIN [id number] 00:00:00 Test Item Value Reference Range Interpretation Comments HEMOGLOBIN A1c (test code = 21539) 6.5 % COMPREHENSIVE METABOLIC [id number] 00:00:00 Test Item Value Reference Range Interpretation Comments GLUCOSE (test code = 7) 125 MG/DL BUN (test code = 2208) 13 MG/DL CREATININE (test code = 2214) 0.55 MG/DL eGFR (2020 CKD-EPI) (test 102 ML/MIN/1.73 code = 53424) CALC BUN/CREAT (test code = 24 RATIO 5) SODIUM (test code = 2231) 143 MEQ/L POTASSIUM (test code = 2228) 4.7 MEQ/L CHLORIDE (test code = 2215) 105 MEQ/L CARBON DIOXIDE (test code = 29 MEQ/L 2205) CALCIUM (test code = 2209) 9.5 MG/DL PROTEIN, TOTAL (test code = 7.2 G/DL 2229) ALBUMIN (test code = 2201) 4.4 G/DL CALC GLOBULIN (test code = 2.8 G/DL 2240) CALC A/G RATIO (test code = 1.6 RATIO 2234) BILIRUBIN, TOTAL (test code = 0.4 MG/DL 2206) ALKALINE PHOSPHATASE (test 109 U/L code = 2204) AST (test code = 2218) 16 U/L ALT (test code = 2219) 9 U/L COMPREHENSIVE METABOLIC [id number] 00:00:00 Test Item Value Reference Range Interpretation Comments GLUCOSE (test code = 2217) 125 MG/DL BUN (test code = 2208) 13 MG/DL CREATININE (test code = 2214) 0.55 MG/DL eGFR (2020 CKD-EPI) (test 102 ML/MIN/1.73 code = 42568) CALC BUN/CREAT (test code = 24 RATIO 2235) SODIUM (test code = 2231) 143 MEQ/L POTASSIUM (test code = 2228) 4.7 MEQ/L CHLORIDE (test code = 2215) 105 MEQ/L CARBON DIOXIDE (test code = 29 MEQ/L 2205) CALCIUM (test code = 2209) 9.5 MG/DL PROTEIN, TOTAL (test code = 7.2 G/DL 2228) ALBUMIN (test code = 2201) 4.4 G/DL CALC GLOBULIN (test code = 2.8 G/DL 2240) CALC A/G RATIO (test code = 1.6 RATIO 2234) BILIRUBIN, TOTAL (test code = 0.4 MG/DL 7) ALKALINE PHOSPHATASE (test 109 U/L code = 2204) AST (test code = 2218) 16 U/L ALT (test code = 2219) 9 U/L LIPID [id number] 00:00:00 Test Item Value Reference Range Interpretation Comments CHOLESTEROL (test code = 2210) 145 MG/DL TRIGLYCERIDES (test code = 2232) 125 MG/DL HDL CHOLESTEROL (test code = 2220) 55 MG/DL CALC LDL CHOL (test code = 2237) 69 MG/DL RISK RATIO LDL/HDL (test code = 1.25 RATIO 2238) LIPID [id number] 00:00:00 Test Item Value Reference Range Interpretation Comments CHOLESTEROL (test code = 2210) 145 MG/DL TRIGLYCERIDES (test code = 2232) 125 MG/DL HDL CHOLESTEROL (test code = 2220) 55 MG/DL CALC LDL CHOL (test code = 2237) 69 MG/DL RISK RATIO LDL/HDL (test code = 1.25 RATIO 8) HEMOGLOBIN [id number] 00:00:00 Test Item Value Reference Range Interpretation Comments HEMOGLOBIN A1c (test code = 77915) 6.5 % HEMOGLOBIN [id number] 00:00:00 Test Item Value Reference Range Interpretation Comments HEMOGLOBIN A1c (test code = 03155) 6.5 % HEMOGLOBIN [id number] 00:00:00 Test Item Value Reference Range Interpretation Comments HEMOGLOBIN A1c (test code = 72968) 6.5 % COMPREHENSIVE METABOLIC [id number] 00:00:00 Test Item Value Reference Range Interpretation Comments GLUCOSE (test code = 2217) 125 MG/DL BUN (test code = 2208) 13 MG/DL CREATININE (test code = 2214) 0.55 MG/DL eGFR (2020 CKD-EPI) (test 102 ML/MIN/1.73 code = 29543) CALC BUN/CREAT (test code = 24 RATIO 2234) SODIUM (test code = 2231) 143 MEQ/L POTASSIUM (test code = 2228) 4.7 MEQ/L CHLORIDE (test code = 2215) 105 MEQ/L CARBON DIOXIDE (test code = 29 MEQ/L 2205) CALCIUM (test code = 2209) 9.5 MG/DL PROTEIN, TOTAL (test code = 7.2 G/DL 2228) ALBUMIN (test code = 2201) 4.4 G/DL CALC GLOBULIN (test code = 2.8 G/DL 2239) CALC A/G RATIO (test code = 1.6 RATIO 2233) BILIRUBIN, TOTAL (test code = 0.4 MG/DL 2206) ALKALINE PHOSPHATASE (test 109 U/L code = 2204) AST (test code = 2218) 16 U/L ALT (test code = 2219) 9 U/L COMPREHENSIVE METABOLIC [id number] 00:00:00 Test Item Value Reference Range Interpretation Comments GLUCOSE (test code = 2217) 125 MG/DL BUN (test code = 2208) 13 MG/DL CREATININE (test code = 2214) 0.55 MG/DL eGFR (2020 CKD-EPI) (test 102 ML/MIN/1.73 code = 45994) CALC BUN/CREAT (test code = 24 RATIO 2235) SODIUM (test code = 2231) 143 MEQ/L POTASSIUM (test code = 2228) 4.7 MEQ/L CHLORIDE (test code = 2215) 105 MEQ/L CARBON DIOXIDE (test code = 29 MEQ/L 2205) CALCIUM (test code = 2209) 9.5 MG/DL PROTEIN, TOTAL (test code = 7.2 G/DL 2228) ALBUMIN (test code = 2201) 4.4 G/DL CALC GLOBULIN (test code = 2.8 G/DL 2239) CALC A/G RATIO (test code = 1.6 RATIO 2234) BILIRUBIN, TOTAL (test code = 0.4 MG/DL 2206) ALKALINE PHOSPHATASE (test 109 U/L code = 2204) AST (test code = 2218) 16 U/L ALT (test code = 2219) 9 U/L LIPID [id number] 00:00:00 Test Item Value Reference Range Interpretation Comments CHOLESTEROL (test code = 2210) 145 MG/DL TRIGLYCERIDES (test code = 2232) 125 MG/DL HDL CHOLESTEROL (test code = 2220) 55 MG/DL CALC LDL CHOL (test code = 2237) 69 MG/DL RISK RATIO LDL/HDL (test code = 1.25 RATIO 2238) LIPID [id number] 00:00:00 Test Item Value Reference Range Interpretation Comments CHOLESTEROL (test code = 2210) 145 MG/DL TRIGLYCERIDES (test code = 2232) 125 MG/DL HDL CHOLESTEROL (test code = 2220) 55 MG/DL CALC LDL CHOL (test code = 2237) 69 MG/DL RISK RATIO LDL/HDL (test code = 1.25 RATIO 2238) HEMOGLOBIN [id number] 00:00:00 Test Item Value Reference Range Interpretation Comments HEMOGLOBIN A1c (test code = 47602) 6.5 % HEMOGLOBIN [id number] 00:00:00 Test Item Value Reference Range Interpretation Comments HEMOGLOBIN A1c (test code = 98267) 6.5 % HEMOGLOBIN [id number] 00:00:00 Test Item Value Reference Range Interpretation Comments HEMOGLOBIN A1c (test code = 44930) 6.5 % SCR MAMM BILATERAL SWAPNA CAD [id number] 08:06:36 Name: Dinah : 1955 Sex: F - SCR MAMM BILATERAL SWAPNA CAD DIGITALBILATERAL DIGITAL SCREENING MAMMOGRAM 3D/2D WITH CAD: 06/13/2022LINICAL: Asymptomatic. Digital breast tomosynthesis was performed in addition to routine CC and MLO views. Current mammographic images were evaluated by [email or web address] CAD (computer-aided detection) software. Comparison is made to exams dated 02/18/2018 mammogram, 12/23/2016 mammogram - [facility], and 07/12/2015 mammogram - [facility]. There are scattered fibroglandular tissues in both breasts. There are benign calcifications in both breasts. There also are benign vascular calcifications in both breasts. No suspicious mass, architectural distortion, malignant type calcification, or lymph node abnormality detected. Breast architecture is stable compared to prior exams.IMPRESSION: BENIGNThere is no mammographic evidence of malignancy. Resume annual screening mammography in one year. (06/14/2023) Dona lee/penrad:06/20/2022 08:06:36 Straw Baler: Jennifer Parekh MM, [facility] Mammographyletter sent: BIRADS 1-2 Normal Mammogram BI-RADS: 2 BenignPAP TEST, THINPREP, [id number] 09:35:49 Test Item Value Reference Range Interpretation Comments SOURCE: (test Cervical/Endoc code = 8001) ervical SLIDES: (test 1 code = 8011) LMP: (test code SEE NOTE POST MENOPA USAL = 8065) SPECIMEN (NOTE) Satisfactory f or ADEQUACY: (test evaluation. Endocervical code = 15453) cells/transfor mation zone component present. INTERPRETATION: NILM/NO EPITH. (test code = ABNORMALITY;SE 53890) E BELOW ------- NEGATIVE FO R INTRAEPITHELIAL LESION OR MALIGNANCY ( NILM) --------- --------- --------- - HOSPICE NURSE Cynthia Uribe : (test code = 8101) QC TECHNOLOGIST: Nayeli (test code = Michaela,SCT(ASC 8111) P)CT(IAC) LOCATION: (test (NOTE) Specimens pr ocessed and code = 81966) interpreted at [facility], [address] [place] [id number], , CLIA: [id number] CPT: (test code (NOTE) 41327 UNLESS OTHERWISE = 8140) INDICATED, COMP UTER [...] consolidated pr ior Pap history is avai labfran as applicable. PAP TEST, THINPREP, [id number] 00:00:00 Test Item Value Reference Range Interpretation Comments SOURCE: (test code = Cervical/Endocervical 8001) SLIDES: (test code = 1 8011) LMP: (test code = 8021) SEE NOTE SPECIMEN ADEQUACY: (test (NOTE) code = 16018) INTERPRETATION: (test NILM/NO EPITH. code = 14795) ABNORMALITY;SEE BELOW HOSPICE NURSE: (test Cynthia Uribe code = 8101) QC TECHNOLOGIST: (test Nayeli code = 8111) Josessmagali,SCT(ASCP)CT(IA C) LOCATION: (test code = (NOTE) 52442) CPT: (test code = 8140) (NOTE) PAP TEST, THINPREP, [id number] 00:00:00 Test Item Value Reference Range Interpretation Comments SOURCE: (test code = Cervical/Endocervical 8001) SLIDES: (test code = 1 8011) LMP: (test code = 8021) SEE NOTE SPECIMEN ADEQUACY: (test (NOTE) code = 87251) INTERPRETATION: (test NILM/NO EPITH. code = 32982) ABNORMALITY;SEE BELOW HOSPICE NURSE: [facility] QC TECHNOLOGIST: (test Nayeli code = 8111) Michaela,SCT(ASCP)CT(IA C) LOCATION: (test code = (NOTE) 13231) CPT: (test code = 8140) (NOTE) PAP TEST, THINPREP, [id number] 00:00:00 Test Item Value Reference Range Interpretation Comments SOURCE: (test code = Cervical/Endocervical 8001) SLIDES: (test code = 1 8011) LMP: (test code = 8021) SEE NOTE SPECIMEN ADEQUACY: (test (NOTE) code = 20886) INTERPRETATION: (test NILM/NO EPITH. code = 51657) ABNORMALITY;SEE BELOW HOSPICE NURSE: (test Cynthia Lara code = 8101) QC TECHNOLOGIST: (test Nayeli code = 8111) Michaela,SCT(ASCP)CT(IA C) LOCATION: (test code = (NOTE) 64773) CPT: (test code = 8140) (NOTE) PAP TEST, THINPREP, [id number] 00:00:00 Test Item Value Reference Range Interpretation Comments SOURCE: (test code = Cervical/Endocervical 8001) SLIDES: (test code = 1 8011) LMP: (test code = 8021) SEE NOTE SPECIMEN ADEQUACY: (test (NOTE) code = 40461) INTERPRETATION: (test NILM/NO EPITH. code = 85906) ABNORMALITY;SEE BELOW HOSPICE [facility]: [facility] QC TECHNOLOGIST: (test Nayeli code = 8111) MichaelaSCT(ASCP)CT(IA C) LOCATION: (test code = (NOTE) 61612) CPT: (test code = 8140) (NOTE) PAP TEST, THINPREP, [id number] 00:00:00 Test Item Value Reference Range Interpretation Comments SOURCE: (test code = Cervical/Endocervical 8001) SLIDES: (test code = 1 8011) LMP: (test code = 8021) SEE NOTE SPECIMEN ADEQUACY: (test (NOTE) code = 74765) INTERPRETATION: (test NILM/NO EPITH. code = 25921) ABNORMALITY;SEE BELOW HOSPICE NURSE: (test Cynthia Uribe code = 8101) QC TECHNOLOGIST: (test Nayeli code = 8111) MichaelaSCT(ASCP)CT(IA C) LOCATION: (test code = (NOTE) 51992) CPT: (test code = 8140) (NOTE) PAP TEST, THINPREP, [id number] 00:00:00 Test Item Value Reference Range Interpretation Comments SOURCE: (test code = Cervical/Endocervical 8001) SLIDES: (test code = 1 8011) LMP: (test code = 8021) SEE NOTE SPECIMEN ADEQUACY: (test (NOTE) code = 90382) INTERPRETATION: (test NILM/NO EPITH. code = 09325) ABNORMALITY;SEE BELOW HOSPICE NURSE: (test Cynthia Uribe code = 8101) QC TECHNOLOGIST: (test Nayeli code = 8111) MichaelaSCT(ASCP)CT(IA C) LOCATION: (test code = (NOTE) 18593) CPT: (test code = 8140) (NOTE) PAP TEST, THINPREP, [id number] 00:00:00 Test Item Value Reference Range Interpretation Comments SOURCE: (test code = Cervical/Endocervical 8001) SLIDES: (test code = 1 8011) LMP: (test code = 8021) SEE NOTE SPECIMEN ADEQUACY: (test (NOTE) code = 45329) INTERPRETATION: (test NILM/NO EPITH. code = 70820) ABNORMALITY;SEE BELOW HOSPICE NURSE: (test Cynthia Uribe code = 8101) QC TECHNOLOGIST: (test Nayeli code = 8111) Kussad,SCT(ASCP)CT(IA C) LOCATION: (test code = (NOTE) 86713) CPT: (test code = 8140) (NOTE) PAP TEST, THINPREP, [id number] 00:00:00 Test Item Value Reference Range Interpretation Comments SOURCE: (test code = Cervical/Endocervical 8001) SLIDES: (test code = 1 8011) LMP: (test code = 8021) SEE NOTE SPECIMEN ADEQUACY: (test (NOTE) code = 78247) INTERPRETATION: (test NILM/NO EPITH. code = 98289) ABNORMALITY;SEE BELOW HOSPICE NURSE: (test Anniel Samujh code = 8101) QC TECHNOLOGIST: (test Nayeli code = 8111) Josessmagali,SCT(ASCP)CT(IA C) LOCATION: (test code = (NOTE) 64607) CPT: (test code = 8140) (NOTE) PAP TEST, THINPREP, [id number] 00:00:00 Test Item Value Reference Range Interpretation Comments SOURCE: (test code = Cervical/Endocervical 8001) SLIDES: (test code = 1 8011) LMP: (test code = 8021) SEE NOTE SPECIMEN ADEQUACY: (test (NOTE) code = 19293) INTERPRETATION: (test NILM/NO EPITH. code = 78174) ABNORMALITY;SEE BELOW HOSPICE NURSE: (test Anniel Samujh code = 8101) QC TECHNOLOGIST: (test Nayeli code = 8111) MichaelaSCT(ASCP)CT(IA C) LOCATION: (test code = (NOTE) 74855) CPT: (test code = 8140) (NOTE) PAP TEST, THINPREP, [id number] 00:00:00 Test Item Value Reference Range Interpretation Comments SOURCE: (test code = Cervical/Endocervical 8001) SLIDES: (test code = 1 8011) LMP: (test code = 8021) SEE NOTE SPECIMEN ADEQUACY: (test (NOTE) code = 04026) INTERPRETATION: (test NILM/NO EPITH. code = 85007) ABNORMALITY;SEE BELOW HOSPICE NURSE: (test Anniel Samujh code = 8101) QC TECHNOLOGIST: (test Nayeli code = 8111) AMANUEL Jennings(ASCP)CT(IA C) LOCATION: (test code = (NOTE) 85610) CPT: (test code = 8140) (NOTE) PAP TEST, THINPREP, [id number] 00:00:00 Test Item Value Reference Range Interpretation Comments SOURCE: (test code = Cervical/Endocervical 8001) SLIDES: (test code = 1 8011) LMP: (test code = 8021) SEE NOTE SPECIMEN ADEQUACY: (test (NOTE) code = 30246) INTERPRETATION: (test NILM/NO EPITH. code = 47886) ABNORMALITY;SEE BELOW HOSPICE NURSE: (test Cynthia [facility] code = 8101) QC TECHNOLOGIST: (test Nayeli code = 8111) AMANUEL Jennings(ASCP)CT(IA C) LOCATION: (test code = (NOTE) 92591) CPT: (test code = 8140) (NOTE) HPV HIGH RISK WITH GENOTYPE, [id number] 15:22:15 Test Item Value Reference Range Interpretation Comments HPV HIGH RISK INTERP NEGATIVE NEGATIVE (test code = 53278) HPV 16 (test code = NEGATIVE 70913) HPV 18 (test code = NEGATIVE 41291) HPV, HR, OTHER NEGATIVE Testing meth odology is GENOTYPES (test code real-ti me PCR utilizing = 70613) hydrolysis prob es with the [employer] 4800 system. The jaki t individually [...] ATED, ALL TESTING PERFORM ED [facility], I [place]. [address] [place] [address] LABORATORY DIRE CTOR: WALDO PHILLIPS M.D. CLIA NUMBER [id number] [place] [id number] HPV HIGH RISK WITH GENOTYPE, [id number] 00:00:00 Test Item Value Reference Range Interpretation Comments HPV HIGH RISK INTERP (test code = NEGATIVE 94080) HPV 16 (test code = 84419) NEGATIVE HPV 18 (test code = 14931) NEGATIVE HPV, HR, OTHER GENOTYPES (test code NEGATIVE = 57402) HPV HIGH RISK WITH GENOTYPE, [id number] 00:00:00 Test Item Value Reference Range Interpretation Comments HPV HIGH RISK INTERP (test code = NEGATIVE 37568) HPV 16 (test code = 69997) NEGATIVE HPV 18 (test code = 22589) NEGATIVE HPV, HR, OTHER GENOTYPES (test code NEGATIVE = 01738) HPV HIGH RISK WITH GENOTYPE, [id number] 00:00:00 Test Item Value Reference Range Interpretation Comments HPV HIGH RISK INTERP (test code = NEGATIVE 93756) HPV 16 (test code = 55049) NEGATIVE HPV 18 (test code = 98640) NEGATIVE HPV, HR, OTHER GENOTYPES (test code NEGATIVE = 53248) HPV HIGH RISK WITH GENOTYPE, [id number] 00:00:00 Test Item Value Reference Range Interpretation Comments HPV HIGH RISK INTERP (test code = NEGATIVE 50458) HPV 16 (test code = 88267) NEGATIVE HPV 18 (test code = 85037) NEGATIVE HPV, HR, OTHER GENOTYPES (test code NEGATIVE = 01833) HPV HIGH RISK WITH GENOTYPE, [id number] 00:00:00 Test Item Value Reference Range Interpretation Comments HPV HIGH RISK INTERP (test code = NEGATIVE 58135) HPV 16 (test code = 93069) NEGATIVE HPV 18 (test code = 51787) NEGATIVE HPV, HR, OTHER GENOTYPES (test code NEGATIVE = 93327) HPV HIGH RISK WITH GENOTYPE, [id number] 00:00:00 Test Item Value Reference Range Interpretation Comments HPV HIGH RISK INTERP (test code = NEGATIVE 60754) HPV 16 (test code = 84182) NEGATIVE HPV 18 (test code = 61692) NEGATIVE HPV, HR, OTHER GENOTYPES (test code NEGATIVE = 77160) HPV HIGH RISK WITH GENOTYPE, [id number] 00:00:00 Test Item Value Reference Range Interpretation Comments HPV HIGH RISK INTERP (test code = NEGATIVE 99270) HPV 16 (test code = 78483) NEGATIVE HPV 18 (test code = 04795) NEGATIVE HPV, HR, OTHER GENOTYPES (test code NEGATIVE = 70831) HPV HIGH RISK WITH GENOTYPE, [id number] 00:00:00 Test Item Value Reference Range Interpretation Comments HPV HIGH RISK INTERP (test code = NEGATIVE 58930) HPV 16 (test code = 98023) NEGATIVE HPV 18 (test code = 26422) NEGATIVE HPV, HR, OTHER GENOTYPES (test code NEGATIVE = 09548) HPV HIGH RISK WITH GENOTYPE, [id number] 00:00:00 Test Item Value Reference Range Interpretation Comments HPV HIGH RISK INTERP (test code = NEGATIVE 39561) HPV 16 (test code = 41492) NEGATIVE HPV 18 (test code = 08646) NEGATIVE HPV, HR, OTHER GENOTYPES (test code NEGATIVE = 92241) HPV HIGH RISK WITH GENOTYPE, [id number] 00:00:00 Test Item Value Reference Range Interpretation Comments HPV HIGH RISK INTERP (test code = NEGATIVE 40243) HPV 16 (test code = 92095) NEGATIVE HPV 18 (test code = 55433) NEGATIVE HPV, HR, OTHER GENOTYPES (test code NEGATIVE = 15635) HPV HIGH RISK WITH GENOTYPE, [id number] 00:00:00 Test Item Value Reference Range Interpretation Comments HPV HIGH RISK INTERP (test code = NEGATIVE 01251) HPV 16 (test code = 89344) NEGATIVE HPV 18 (test code = 87562) NEGATIVE HPV, HR, OTHER GENOTYPES (test code NEGATIVE = 34889) HEMOGLOBIN [id number] 05:01:22 Test Item Value Reference Range Interpretation Comments HEMOGLOBIN A1c (test code = 18295) 6.3 % 4.2-5.6 H CBC W/AUTO DIFF WITH [id number] 04:19:27 Test Item Value Reference Range Interpretation [...] message] code = 1065) WBC'S The system [employer] generated this result transmitted ref erence range: [...] 0.00-0.11 UNLESS O THERWISE (test code = 34510) INDICATE D, ALL TESTING PERFORM ED ATCLINICAL PATH [facility], [facility]. [address] [place] [id number] [place] [address] DIRECTOR: WALDO COSTELLO M.D. CLIA NUMBER [id number] CAP ACCREDITATION N O. [id number] COMPREHENSIVE METABOLIC [id number] 03:45:12 Test Item Value Reference Range Interpretation Comments GLUCOSE (test code = 118 MG/DL 70-99 H 2216) BUN (test code = 14 MG/DL -2207) CREATININE (test 0.58 MG/DL 0.60-1.30 L code = 2214) eGFR (2020 CKD-EPI) 100 >60 (test code = 43402) ML/MIN/1.73 CALC BUN/CREAT (test 24 RATIO 6-28 code = 2235) SODIUM (test code = 144 MEQ/L 125-986 1789) POTASSIUM (test code 4.7 MEQ/L 3.5-5.4 = 2227) CHLORIDE (test code 103 MEQ/L 95-107 = 2215) CARBON DIOXIDE (test 26 MEQ/L 19-31 code = 2206) CALCIUM (test code = 9.5 MG/DL 8.5-10.5 [...] code = 9 U/L 5-40 2218) LIPID [id number] 03:45:12 Test Item Value Reference Range Interpretation [...] MOREINFORMATION , SEE CLIENT ANNOUNCE MENT AT [email or web address] RISK RATIO LDL/HDL 1.22 RATIO <3.22 (test code = 2238) COMPREHENSIVE METABOLIC [id number] 00:00:00 Test Item Value Reference Range Interpretation Comments GLUCOSE (test code = 2217) 118 MG/DL BUN (test code = 2208) 14 MG/DL CREATININE (test code = 2214) 0.58 MG/DL eGFR (2020 CKD-EPI) (test 100 ML/MIN/1.73 code = 13524) CALC BUN/CREAT (test code = 24 RATIO [...] code = 2219) 9 U/L COMPREHENSIVE METABOLIC [id number] 00:00:00 Test Item Value Reference Range Interpretation Comments GLUCOSE (test code = 2217) 118 MG/DL BUN (test code = 2208) 14 MG/DL CREATININE (test code = 2214) 0.58 MG/DL eGFR (2020 CKD-EPI) (test 100 ML/MIN/1.73 code = 74986) CALC BUN/CREAT (test code = 24 RATIO [...] code = 2219) 9 U/L COMPREHENSIVE METABOLIC [id number] 00:00:00 Test Item Value Reference Range Interpretation Comments GLUCOSE (test code = 2217) 118 MG/DL BUN (test code = 2208) 14 MG/DL CREATININE (test code = 2214) 0.58 MG/DL eGFR (2020 CKD-EPI) (test 100 ML/MIN/1.73 code = 36500) CALC BUN/CREAT (test code = 24 RATIO [...] (test code = 2219) 9 U/L LIPID [id number] 00:00:00 Test Item Value Reference Range Interpretation Comments CHOLESTEROL (test code = 2210) 164 MG/DL TRIGLYCERIDES (test code = 2232) 112 MG/DL HDL CHOLESTEROL (test code = 2220) 65 MG/DL CALC LDL CHOL (test code = 2237) 79 MG/DL RISK RATIO LDL/HDL (test code = 1.22 RATIO 2238) LIPID [id number] 00:00:00 Test Item Value Reference Range Interpretation Comments CHOLESTEROL (test code = 2210) 164 MG/DL TRIGLYCERIDES (test code = 2232) 112 MG/DL HDL CHOLESTEROL (test code = 2220) 65 MG/DL CALC LDL CHOL (test code = 2237) 79 MG/DL RISK RATIO LDL/HDL (test code = 1.22 RATIO 2238) HEMOGLOBIN [id number] 00:00:00 Test Item Value Reference Range Interpretation Comments HEMOGLOBIN A1c (test code = 06511) 6.3 % HEMOGLOBIN [id number] 00:00:00 Test Item Value Reference Range Interpretation Comments HEMOGLOBIN A1c (test code = 67851) 6.3 % HEMOGLOBIN [id number] 00:00:00 Test Item Value Reference Range Interpretation Comments HEMOGLOBIN A1c (test code = 40540) 6.3 % CBC W/AUTO [id number] 00:00:00 Test Item Value Reference Range Interpretation [...] NUCLEATED RBCS (test code = 0.00 K/UL 91010) CBC W/AUTO [id number] 00:00:00 Test Item Value Reference Range Interpretation [...] NUCLEATED RBCS (test code = 0.00 K/UL 10332) CBC W/AUTO [id number] 00:00:00 Test Item Value Reference Range Interpretation [...] NUCLEATED RBCS (test code = 0.00 K/UL 16739) LIPID [id number] 00:00:00 Test Item Value Reference Range Interpretation Comments CHOLESTEROL (test code = 2210) 164 MG/DL TRIGLYCERIDES (test code = 2232) 112 MG/DL HDL CHOLESTEROL (test code = 2220) 65 MG/DL CALC LDL CHOL (test code = 2237) 79 MG/DL RISK RATIO LDL/HDL (test code = 1.22 RATIO 2238) HEMOGLOBIN [id number] 00:00:00 Test Item Value Reference Range Interpretation Comments HEMOGLOBIN A1c (test code = 72651) 6.3 % HEMOGLOBIN [id number] 00:00:00 Test Item Value Reference Range Interpretation Comments HEMOGLOBIN A1c (test code = 09111) 6.3 % COMPREHENSIVE METABOLIC [id number] 00:00:00 Test Item Value Reference Range Interpretation Comments GLUCOSE (test code = 2217) 118 MG/DL BUN (test code = 2208) 14 MG/DL CREATININE (test code = 2214) 0.58 MG/DL eGFR (2020 CKD-EPI) (test 100 ML/MIN/1.73 code = 71399) CALC BUN/CREAT (test code = 24 RATIO [...] ALT (test code = 2219) 9 U/L CBC W/AUTO [id number] 00:00:00 Test Item Value Reference Range Interpretation [...] NUCLEATED RBCS (test code = 0.00 K/UL 58786) COMPREHENSIVE METABOLIC [id number] 00:00:00 Test Item Value Reference Range Interpretation Comments GLUCOSE (test code = 2217) 118 MG/DL BUN (test code = 2208) 14 MG/DL CREATININE (test code = 2214) 0.58 MG/DL eGFR (2020 CKD-EPI) (test 100 ML/MIN/1.73 code = 06718) CALC BUN/CREAT (test code = 24 RATIO [...] = 0.3 MG/DL 2207) ALKALINE PHOSPHATASE (test 110 U/L code = 2204) AST (test code = 2218) 13 U/L ALT (test code = 2219) 9 U/L CBC W/AUTO [id number] 00:00:00 Test Item Value Reference Range Interpretation [...] NUCLEATED RBCS (test code = 0.00 K/UL 54991) LIPID [id number] 00:00:00 Test Item Value Reference Range Interpretation Comments CHOLESTEROL (test code = 2210) 164 MG/DL TRIGLYCERIDES (test code = 2232) 112 MG/DL HDL CHOLESTEROL (test code = 2220) 65 MG/DL CALC LDL CHOL (test code = 2237) 79 MG/DL RISK RATIO LDL/HDL (test code = 1.22 RATIO 2238) LIPID [id number] 00:00:00 Test Item Value Reference Range Interpretation Comments CHOLESTEROL (test code = 2210) 164 MG/DL TRIGLYCERIDES (test code = 2232) 112 MG/DL HDL CHOLESTEROL (test code = 2220) 65 MG/DL CALC LDL CHOL (test code = 2237) 79 MG/DL RISK RATIO LDL/HDL (test code = 1.22 RATIO 2238) HEMOGLOBIN [id number] 00:00:00 Test Item Value Reference Range Interpretation Comments HEMOGLOBIN A1c (test code = 41163) 6.3 % HEMOGLOBIN [id number] 00:00:00 Test Item Value Reference Range Interpretation Comments HEMOGLOBIN A1c (test code = 88278) 6.3 % HEMOGLOBIN [id number] 00:00:00 Test Item Value Reference Range Interpretation Comments HEMOGLOBIN A1c (test code = 96552) 6.3 % CBC W/AUTO [id number] 00:00:00 Test Item Value Reference Range Interpretation [...] NUCLEATED RBCS (test code = 0.00 K/UL 36421) CBC W/AUTO [id number] 00:00:00 Test Item Value Reference Range Interpretation [...] NUCLEATED RBCS (test code = 0.00 K/UL 17626) CBC W/AUTO [id number] 00:00:00 Test Item Value Reference Range Interpretation [...] NUCLEATED RBCS (test code = 0.00 K/UL 87928) COMPREHENSIVE METABOLIC [id number] 00:00:00 Test Item Value Reference Range Interpretation Comments GLUCOSE (test code = 2217) 118 MG/DL BUN (test code = 2208) 14 MG/DL CREATININE (test code = 2214) 0.58 MG/DL eGFR (2020 CKD-EPI) (test 100 ML/MIN/1.73 code = 59610) CALC BUN/CREAT (test code = 24 RATIO [...] code = 2219) 9 U/L COMPREHENSIVE METABOLIC [id number] 00:00:00 Test Item Value Reference Range Interpretation Comments GLUCOSE (test code = 2217) 118 MG/DL BUN (test code = 2208) 14 MG/DL CREATININE (test code = 2214) 0.58 MG/DL eGFR (2020 CKD-EPI) (test 100 ML/MIN/1.73 code = 61531) CALC BUN/CREAT (test code = 24 RATIO [...] (test code = 2219) 9 U/L LIPID [id number] 00:00:00 Test Item Value Reference Range Interpretation Comments CHOLESTEROL (test code = 2210) 164 MG/DL TRIGLYCERIDES (test code = 2232) 112 MG/DL HDL CHOLESTEROL (test code = 2220) 65 MG/DL CALC LDL CHOL (test code = 2237) 79 MG/DL RISK RATIO LDL/HDL (test code = 1.22 RATIO 2238) LIPID [id number] 00:00:00 Test Item Value Reference Range Interpretation Comments CHOLESTEROL (test code = 2210) 164 MG/DL TRIGLYCERIDES (test code = 2232) 112 MG/DL HDL CHOLESTEROL (test code = 2220) 65 MG/DL CALC LDL CHOL (test code = 2237) 79 MG/DL RISK RATIO LDL/HDL (test code = 1.22 RATIO 2238) HEMOGLOBIN [id number] 00:00:00 Test Item Value Reference Range Interpretation Comments HEMOGLOBIN A1c (test code = 34110) 6.3 % HEMOGLOBIN [id number] 00:00:00 Test Item Value Reference Range Interpretation Comments HEMOGLOBIN A1c (test code = 94110) 6.3 % HEMOGLOBIN [id number] 00:00:00 Test Item Value Reference Range Interpretation Comments HEMOGLOBIN A1c (test code = 57119) 6.3 % CBC W/AUTO [id number] 00:00:00 Test Item Value Reference Range Interpretation [...] NUCLEATED RBCS (test code = 0.00 K/UL 56540) CBC W/AUTO [id number] 00:00:00 Test Item Value Reference Range Interpretation [...] NUCLEATED RBCS (test code = 0.00 K/UL 25260) CBC W/AUTO [id number] 00:00:00 Test Item Value Reference Range Interpretation [...] NUCLEATED RBCS (test code = 0.00 K/UL 59446) COMPREHENSIVE METABOLIC [id number] 00:00:00 Test Item Value Reference Range Interpretation Comments GLUCOSE (test code = 2217) 118 MG/DL BUN (test code = 2208) 14 MG/DL CREATININE (test code = 2214) 0.58 MG/DL eGFR (2020 CKD-EPI) (test 100 ML/MIN/1.73 code = 70635) CALC BUN/CREAT (test code = 24 RATIO [...] CALC GLOBULIN (test code = 2.9 G/DL 0) CALC A/G RATIO (test code = 1.5 RATIO 4) BILIRUBIN, TOTAL (test code = 0.3 MG/DL 2206) ALKALINE PHOSPHATASE (test 110 U/L code = 2204) AST (test code = 2218) 13 U/L ALT (test code = 2219) 9 U/L LIPID [id number] 00:00:00 Test Item Value Reference Range Interpretation Comments CHOLESTEROL (test code = 2210) 164 MG/DL TRIGLYCERIDES (test code = 2232) 112 MG/DL HDL CHOLESTEROL (test code = 2220) 65 MG/DL CALC LDL CHOL (test code = 2237) 79 MG/DL RISK RATIO LDL/HDL (test code = 1.22 RATIO 2238) HEMOGLOBIN [id number] 00:00:00 Test Item Value Reference Range Interpretation Comments HEMOGLOBIN A1c (test code = 07051) 6.3 % HEMOGLOBIN [id number] 00:00:00 Test Item Value Reference Range Interpretation Comments HEMOGLOBIN A1c (test code = 47046) 6.3 % CBC W/AUTO [id number] 00:00:00 Test Item Value Reference Range Interpretation [...] NUCLEATED RBCS (test code = 0.00 K/UL 19757) CBC W/AUTO [id number] 00:00:00 Test Item Value Reference Range Interpretation [...] NUCLEATED RBCS (test code = 0.00 K/UL 26063) COMPREHENSIVE METABOLIC [id number] 00:00:00 Test Item Value Reference Range Interpretation Comments GLUCOSE (test code = 2217) 118 MG/DL BUN (test code = 2208) 14 MG/DL CREATININE (test code = 2214) 0.58 MG/DL eGFR (2020 CKD-EPI) (test 100 ML/MIN/1.73 code = 78860) CALC BUN/CREAT (test code = 24 RATIO [...] code = 2219) 9 U/L COMPREHENSIVE METABOLIC [id number] 00:00:00 Test Item Value Reference Range Interpretation Comments GLUCOSE (test code = 2217) 118 MG/DL BUN (test code = 2208) 14 MG/DL CREATININE (test code = 2214) 0.58 MG/DL eGFR (2020 CKD-EPI) (test 100 ML/MIN/1.73 code = 08785) CALC BUN/CREAT (test code = 24 RATIO [...] (test code = 2219) 9 U/L LIPID [id number] 00:00:00 Test Item Value Reference Range Interpretation Comments CHOLESTEROL (test code = 2210) 164 MG/DL TRIGLYCERIDES (test code = 2232) 112 MG/DL HDL CHOLESTEROL (test code = 2220) 65 MG/DL CALC LDL CHOL (test code = 2237) 79 MG/DL RISK RATIO LDL/HDL (test code = 1.22 RATIO 2238) LIPID [id number] 00:00:00 Test Item Value Reference Range Interpretation Comments CHOLESTEROL (test code = 2210) 164 MG/DL TRIGLYCERIDES (test code = 2232) 112 MG/DL HDL CHOLESTEROL (test code = 2220) 65 MG/DL CALC LDL CHOL (test code = 2237) 79 MG/DL RISK RATIO LDL/HDL (test code = 1.22 RATIO 2238) HEMOGLOBIN [id number] 00:00:00 Test Item Value Reference Range Interpretation Comments HEMOGLOBIN A1c (test code = 05317) 6.3 % HEMOGLOBIN [id number] 00:00:00 Test Item Value Reference Range Interpretation Comments HEMOGLOBIN A1c (test code = 67844) 6.3 % HEMOGLOBIN [id number] 00:00:00 Test Item Value Reference Range Interpretation Comments HEMOGLOBIN A1c (test code = 36113) 6.3 % CBC W/AUTO [id number] 00:00:00 Test Item Value Reference Range Interpretation [...] NUCLEATED RBCS (test code = 0.00 K/UL 90473) CBC W/AUTO [id number] 00:00:00 Test Item Value Reference Range Interpretation [...] NUCLEATED RBCS (test code = 0.00 K/UL 28222) CBC W/AUTO [id number] 00:00:00 Test Item Value Reference Range Interpretation [...] NUCLEATED RBCS (test code = 0.00 K/UL 62244) COMPREHENSIVE METABOLIC [id number] 00:00:00 Test Item Value Reference Range Interpretation Comments GLUCOSE (test code = 2217) 118 MG/DL BUN (test code = 2208) 14 MG/DL CREATININE (test code = 2214) 0.58 MG/DL eGFR (2020 CKD-EPI) (test 100 ML/MIN/1.73 code = 49789) CALC BUN/CREAT (test code = 24 RATIO [...] code = 2219) 9 U/L COMPREHENSIVE METABOLIC [id number] 00:00:00 Test Item Value Reference Range Interpretation Comments GLUCOSE (test code = 2217) 118 MG/DL BUN (test code = 2208) 14 MG/DL CREATININE (test code = 2214) 0.58 MG/DL eGFR (2020 CKD-EPI) (test 100 ML/MIN/1.73 code = 63700) CALC BUN/CREAT (test code = 24 RATIO [...] (test code = 2219) 9 U/L LIPID [id number] 00:00:00 Test Item Value Reference Range Interpretation Comments CHOLESTEROL (test code = 2210) 164 MG/DL TRIGLYCERIDES (test code = 2232) 112 MG/DL HDL CHOLESTEROL (test code = 2220) 65 MG/DL CALC LDL CHOL (test code = 2237) 79 MG/DL RISK RATIO LDL/HDL (test code = 1.22 RATIO 2238) LIPID [id number] 00:00:00 Test Item Value Reference Range Interpretation Comments CHOLESTEROL (test code = 2210) 164 MG/DL TRIGLYCERIDES (test code = 2232) 112 MG/DL HDL CHOLESTEROL (test code = 2220) 65 MG/DL CALC LDL CHOL (test code = 2237) 79 MG/DL RISK RATIO LDL/HDL (test code = 1.22 RATIO 2238) HEMOGLOBIN [id number] 00:00:00 Test Item Value Reference Range Interpretation Comments HEMOGLOBIN A1c (test code = 68132) 6.3 % HEMOGLOBIN [id number] 00:00:00 Test Item Value Reference Range Interpretation Comments HEMOGLOBIN A1c (test code = 50302) 6.3 % HEMOGLOBIN [id number] 00:00:00 Test Item Value Reference Range Interpretation Comments HEMOGLOBIN A1c (test code = 63076) 6.3 % CBC W/AUTO [id number] 00:00:00 Test Item Value Reference Range Interpretation [...] NUCLEATED RBCS (test code = 0.00 K/UL 11471) CBC W/AUTO [id number] 00:00:00 Test Item Value Reference Range Interpretation [...] NUCLEATED RBCS (test code = 0.00 K/UL 01097) CBC W/AUTO [id number] 00:00:00 Test Item Value Reference Range Interpretation [...] NUCLEATED RBCS (test code = 0.00 K/UL 30344) CULTURE, [id number] 08:37:02SPECIMEN NUMBER: [id number] CULTURE, URINE SPECIMEN NUMBER: [id number] SPECIMEN COMMENT: URINE SOURCE:URINE REPORT STATUS: FINAL FINAL REPORT: 12/13/2021 >100,000 CFU/ML UROGENITAL JESICA PRESENT NO CO MMON PATHOGENS UNLESS OTHERWISE INDICATED, ALL TEST[facility] [address] [place] [id number] CLINICAL DATA MANAGEMENT DIRECTOR: WALDO COSTELLO M.D. CLIA NUMBER [id number] [place]. [id number] CULTURE, [id number] 00:00:00 Test Item Value Reference Range Interpretation Comments CULTURE, URINE (test SPECIMEN NUMBER: code = 36592) [id number] CULTURE, [id number] 00:00:00 Test Item Value Reference Range Interpretation Comments CULTURE, URINE (test SPECIMEN NUMBER: code = 83652) [id number] CULTURE, [id number] 00:00:00 Test Item Value Reference Range Interpretation Comments CULTURE, URINE (test SPECIMEN NUMBER: code = 85475) [id number] CULTURE, [id number] 00:00:00 Test Item Value Reference Range Interpretation Comments CULTURE, URINE (test SPECIMEN NUMBER: code = 73027) [id number] CULTURE, [id number] 00:00:00 Test Item Value Reference Range Interpretation Comments CULTURE, URINE (test SPECIMEN NUMBER: code = 15645) [id number] CULTURE, [id number] 00:00:00 Test Item Value Reference Range Interpretation Comments CULTURE, URINE (test SPECIMEN NUMBER: code = 13929) [id number] CULTURE, [id number] 00:00:00 Test Item Value Reference Range Interpretation Comments CULTURE, URINE (test SPECIMEN NUMBER: code = 13595) [id number] CULTURE, [id number] 00:00:00 Test Item Value Reference Range Interpretation Comments CULTURE, URINE (test SPECIMEN NUMBER: code = 42416) [id number] CULTURE, [id number] 00:00:00 Test Item Value Reference Range Interpretation Comments CULTURE, URINE (test SPECIMEN NUMBER: code = 10858) [id number] CULTURE, [id number] 00:00:00 Test Item Value Reference Range Interpretation Comments CULTURE, URINE (test SPECIMEN NUMBER: code = 81261) [id number] CULTURE, [id number] 00:00:00 Test Item Value Reference Range Interpretation Comments CULTURE, URINE (test SPECIMEN NUMBER: code = 98296) [id number] CULTURE, [id number] 00:00:00 Test Item Value Reference Range Interpretation Comments CULTURE, URINE (test SPECIMEN NUMBER: code = 71564) [id number] 00:00:00 Test Item Value Reference Range Interpretation Comments PTT (test code = 1403) 31.0 SECONDS BASIC METABOLIC [id number] 00:00:00 Test Item Value Reference Range Interpretation Comments GLUCOSE (test code = 2217) 103 MG/DL BUN (test code = 2208) 18 MG/DL CREATININE (test code = 2214) 0.56 MG/DL eGFR AMER. (test code 114 ML/MIN/1.73 = 57464) eGFR NON- AMER. (test 99 ML/MIN/1.73 code = 94119) SODIUM (test code = 2231) 141 MEQ/L POTASSIUM (test code = 2228) 4.1 MEQ/L CHLORIDE (test code = 2215) 103 MEQ/L CARBON DIOXIDE (test code = 26 MEQ/L 2206) CALCIUM (test code = 2209) 9.6 MG/DL [id number] 00:00:00 Test Item Value Reference Range Interpretation Comments PTT (test code = 1403) 31.0 SECONDS BASIC METABOLIC [id number] 00:00:00 Test Item Value Reference Range Interpretation Comments GLUCOSE (test code = 2217) 103 MG/DL BUN (test code = 2208) 18 MG/DL CREATININE (test code = 2214) 0.56 MG/DL eGFR AMER. (test code 114 ML/MIN/1.73 = 67146) eGFR NON- AMER. (test 99 ML/MIN/1.73 code = 33621) SODIUM (test code = 2231) 141 MEQ/L POTASSIUM (test code = 2228) 4.1 MEQ/L CHLORIDE (test code = 2215) 103 MEQ/L CARBON DIOXIDE (test code = 26 MEQ/L 2206) CALCIUM (test code = 2209) 9.6 MG/DL [id number] 00:00:00 Test Item Value Reference Range Interpretation Comments PTT (test code = 1403) 31.0 SECONDS [id number] 00:00:00 Test Item Value Reference Range Interpretation Comments PTT (test code = 1403) 31.0 SECONDS [id number] 00:00:00 Test Item Value Reference Range Interpretation Comments PTT (test code = 1403) 31.0 SECONDS BASIC METABOLIC [id number] 00:00:00 Test Item Value Reference Range Interpretation Comments GLUCOSE (test code = 2217) 103 MG/DL BUN (test code = 2208) 18 MG/DL CREATININE (test code = 2214) 0.56 MG/DL eGFR AMER. (test code 114 ML/MIN/1.73 = 04620) eGFR NON- AMER. (test 99 ML/MIN/1.73 code = 89963) SODIUM (test code = 2231) 141 MEQ/L POTASSIUM (test code = 2228) 4.1 MEQ/L CHLORIDE (test code = 2215) 103 MEQ/L CARBON DIOXIDE (test code = 26 MEQ/L 2206) CALCIUM (test code = 2209) 9.6 MG/DL CBC W/AUTO [id number] 00:00:00 Test Item Value Reference Range Interpretation [...] NUCLEATED RBCS (test code = 0.00 K/UL 58401) CBC W/AUTO [id number] 00:00:00 Test Item Value Reference Range Interpretation [...] NUCLEATED RBCS (test code = 0.00 K/UL 46498) PROTHROMBIN TIME (PT)2021-06-15 00:00:00 Test Item Value Reference Range Interpretation Comments PROTHROMBIN TIME (PT) (test code 12.5 SECONDS = 1402) INR (test code = 67062) 0.9 CBC W/AUTO [id number] 00:00:00 Test Item Value Reference Range Interpretation [...] NUCLEATED RBCS (test code = 0.00 K/UL 48782) PROTHROMBIN TIME (PT)2021-06-15 00:00:00 Test Item Value Reference Range Interpretation Comments PROTHROMBIN TIME (PT) (test code 12.5 SECONDS = 1402) INR (test code = 61784) 0.9 HEMOGLOBIN [id number] 00:00:00 Test Item Value Reference Range Interpretation Comments HEMOGLOBIN A1c (test code = 99531) 6.4 % HEMOGLOBIN [id number] 00:00:00 Test Item Value Reference Range Interpretation Comments HEMOGLOBIN A1c (test code = 32773) 6.4 % HEMOGLOBIN [id number] 00:00:00 Test Item Value Reference Range Interpretation Comments HEMOGLOBIN A1c (test code = 82026) 6.4 % PROTHROMBIN TIME (PT)2021-06-15 00:00:00 Test Item Value Reference Range Interpretation Comments PROTHROMBIN TIME (PT) (test code 12.5 SECONDS = 1402) INR (test code = 07547) 0.9 CBC W/AUTO [id number] 00:00:00 Test Item Value Reference Range Interpretation [...] NUCLEATED RBCS (test code = 0.00 K/UL 84605) CBC W/AUTO [id number] 00:00:00 Test Item Value Reference Range Interpretation [...] NUCLEATED RBCS (test code = 0.00 K/UL 65213) BASIC METABOLIC [id number] 00:00:00 Test Item Value Reference Range Interpretation Comments GLUCOSE (test code = 2217) 103 MG/DL BUN (test code = 2208) 18 MG/DL CREATININE (test code = 2214) 0.56 MG/DL eGFR AMER. (test code 114 ML/MIN/1.73 = 02854) eGFR NON- AMER. (test 99 ML/MIN/1.73 code = 00724) SODIUM (test code = 2231) 141 MEQ/L POTASSIUM (test code = 2228) 4.1 MEQ/L CHLORIDE (test code = 2215) 103 MEQ/L CARBON DIOXIDE (test code = 26 MEQ/L 2206) CALCIUM (test code = 2209) 9.6 MG/DL [id number] 00:00:00 Test Item Value Reference Range Interpretation Comments PTT (test code = 1403) 31.0 SECONDS [id number] 00:00:00 Test Item Value Reference Range Interpretation Comments PTT (test code = 1403) 31.0 SECONDS [id number] 00:00:00 Test Item Value Reference Range Interpretation Comments PTT (test code = 1403) 31.0 SECONDS BASIC METABOLIC [id number] 00:00:00 Test Item Value Reference Range Interpretation Comments GLUCOSE (test code = 2217) 103 MG/DL BUN (test code = 2208) 18 MG/DL CREATININE (test code = 2214) 0.56 MG/DL eGFR AMER. (test code 114 ML/MIN/1.73 = 32605) eGFR NON- AMER. (test 99 ML/MIN/1.73 code = 03037) SODIUM (test code = 2231) 141 MEQ/L POTASSIUM (test code = 2228) 4.1 MEQ/L CHLORIDE (test code = 2215) 103 MEQ/L CARBON DIOXIDE (test code = 26 MEQ/L 2206) CALCIUM (test code = 2209) 9.6 MG/DL [id number] 00:00:00 Test Item Value Reference Range Interpretation Comments PTT (test code = 1403) 31.0 SECONDS CBC W/AUTO [id number] 00:00:00 Test Item Value Reference Range Interpretation [...] NUCLEATED RBCS (test code = 0.00 K/UL 75151) CBC W/AUTO [id number] 00:00:00 Test Item Value Reference Range Interpretation [...] NUCLEATED RBCS (test code = 0.00 K/UL 32566) PROTHROMBIN TIME (PT)2021-06-15 00:00:00 Test Item Value Reference Range Interpretation Comments PROTHROMBIN TIME (PT) (test code 12.5 SECONDS = 1402) INR (test code = 57517) 0.9 CBC W/AUTO [id number] 00:00:00 Test Item Value Reference Range Interpretation [...] NUCLEATED RBCS (test code = 0.00 K/UL 27385) HEMOGLOBIN [id number] 00:00:00 Test Item Value Reference Range Interpretation Comments HEMOGLOBIN A1c (test code = 05196) 6.4 % PROTHROMBIN TIME (PT)2021-06-15 00:00:00 Test Item Value Reference Range Interpretation Comments PROTHROMBIN TIME (PT) (test code 12.5 SECONDS = 1402) INR (test code = 53311) 0.9 HEMOGLOBIN [id number] 00:00:00 Test Item Value Reference Range Interpretation Comments HEMOGLOBIN A1c (test code = 34202) 6.4 % HEMOGLOBIN [id number] 00:00:00 Test Item Value Reference Range Interpretation Comments HEMOGLOBIN A1c (test code = 71322) 6.4 % HEMOGLOBIN [id number] 00:00:00 Test Item Value Reference Range Interpretation Comments HEMOGLOBIN A1c (test code = 36261) 6.4 % HEMOGLOBIN [id number] 00:00:00 Test Item Value Reference Range Interpretation Comments HEMOGLOBIN A1c (test code = 35288) 6.4 % [id number] 00:00:00 Test Item Value Reference Range Interpretation Comments PTT (test code = 1403) 31.0 SECONDS [id number] 00:00:00 Test Item Value Reference Range Interpretation Comments PTT (test code = 1403) 31.0 SECONDS BASIC METABOLIC [id number] 00:00:00 Test Item Value Reference Range Interpretation Comments GLUCOSE (test code = 2217) 103 MG/DL BUN (test code = 2208) 18 MG/DL CREATININE (test code = 2214) 0.56 MG/DL eGFR AMER. (test code 114 ML/MIN/1.73 = 83736) eGFR NON- AMER. (test 99 ML/MIN/1.73 code = 63462) SODIUM (test code = 2231) 141 MEQ/L POTASSIUM (test code = 2228) 4.1 MEQ/L CHLORIDE (test code = 2215) 103 MEQ/L CARBON DIOXIDE (test code = 26 MEQ/L 2206) CALCIUM (test code = 2209) 9.6 MG/DL [id number] 00:00:00 Test Item Value Reference Range Interpretation Comments PTT (test code = 1403) 31.0 SECONDS BASIC METABOLIC [id number] 00:00:00 Test Item Value Reference Range Interpretation Comments GLUCOSE (test code = 2217) 103 MG/DL BUN (test code = 2208) 18 MG/DL CREATININE (test code = 2214) 0.56 MG/DL eGFR AMER. (test code 114 ML/MIN/1.73 = 87524) eGFR NON- AMER. (test 99 ML/MIN/1.73 code = 55797) SODIUM (test code = 2231) 141 MEQ/L POTASSIUM (test code = 2228) 4.1 MEQ/L CHLORIDE (test code = 2215) 103 MEQ/L CARBON DIOXIDE (test code = 26 MEQ/L 2206) CALCIUM (test code = 2209) 9.6 MG/DL [id number] 00:00:00 Test Item Value Reference Range Interpretation Comments PTT (test code = 1403) 31.0 SECONDS PROTHROMBIN TIME (PT)2021-06-15 00:00:00 Test Item Value Reference Range Interpretation Comments PROTHROMBIN TIME (PT) (test code 12.5 SECONDS = 1402) INR (test code = 90063) 0.9 CBC W/AUTO [id number] 00:00:00 Test Item Value Reference Range Interpretation [...] NUCLEATED RBCS (test code = 0.00 K/UL 95753) CBC W/AUTO [id number] 00:00:00 Test Item Value Reference Range Interpretation [...] NUCLEATED RBCS (test code = 0.00 K/UL 94928) PROTHROMBIN TIME (PT)2021-06-15 00:00:00 Test Item Value Reference Range Interpretation Comments PROTHROMBIN TIME (PT) (test code 12.5 SECONDS = 1402) INR (test code = 31716) 0.9 CBC W/AUTO [id number] 00:00:00 Test Item Value Reference Range Interpretation [...] NUCLEATED RBCS (test code = 0.00 K/UL 84994) HEMOGLOBIN [id number] 00:00:00 Test Item Value Reference Range Interpretation Comments HEMOGLOBIN A1c (test code = 25934) 6.4 % HEMOGLOBIN [id number] 00:00:00 Test Item Value Reference Range Interpretation Comments HEMOGLOBIN A1c (test code = 32332) 6.4 % HEMOGLOBIN [id number] 00:00:00 Test Item Value Reference Range Interpretation Comments HEMOGLOBIN A1c (test code = 58825) 6.4 % [id number] 00:00:00 Test Item Value Reference Range Interpretation Comments PTT (test code = 1403) 31.0 SECONDS [id number] 00:00:00 Test Item Value Reference Range Interpretation Comments PTT (test code = 1403) 31.0 SECONDS BASIC METABOLIC [id number] 00:00:00 Test Item Value Reference Range Interpretation Comments GLUCOSE (test code = 2217) 103 MG/DL BUN (test code = 2208) 18 MG/DL CREATININE (test code = 2214) 0.56 MG/DL eGFR AMER. (test code 114 ML/MIN/1.73 = 59419) eGFR NON- AMER. (test 99 ML/MIN/1.73 code = 01844) SODIUM (test code = 2231) 141 MEQ/L POTASSIUM (test code = 2228) 4.1 MEQ/L CHLORIDE (test code = 2215) 103 MEQ/L CARBON DIOXIDE (test code = 26 MEQ/L 2206) CALCIUM (test code = 2209) 9.6 MG/DL [id number] 00:00:00 Test Item Value Reference Range Interpretation Comments PTT (test code = 1403) 31.0 SECONDS PROTHROMBIN TIME (PT)2021-06-15 00:00:00 Test Item Value Reference Range Interpretation Comments PROTHROMBIN TIME (PT) (test code 12.5 SECONDS = 1402) INR (test code = 69182) 0.9 CBC W/AUTO [id number] 00:00:00 Test Item Value Reference Range Interpretation [...] NUCLEATED RBCS (test code = 0.00 K/UL 22599) CBC W/AUTO [id number] 00:00:00 Test Item Value Reference Range Interpretation [...] NUCLEATED RBCS (test code = 0.00 K/UL 40947) HEMOGLOBIN [id number] 00:00:00 Test Item Value Reference Range Interpretation Comments HEMOGLOBIN A1c (test code = 80697) 6.4 % HEMOGLOBIN [id number] 00:00:00 Test Item Value Reference Range Interpretation Comments HEMOGLOBIN A1c (test code = 01944) 6.4 % [id number] 00:00:00 Test Item Value Reference Range Interpretation Comments PTT (test code = 1403) 31.0 SECONDS [id number] 00:00:00 Test Item Value Reference Range Interpretation Comments PTT (test code = 1403) 31.0 SECONDS [id number] 00:00:00 Test Item Value Reference Range Interpretation Comments PTT (test code = 1403) 31.0 SECONDS [id number] 00:00:00 Test Item Value Reference Range Interpretation Comments PTT (test code = 1403) 31.0 SECONDS BASIC METABOLIC [id number] 00:00:00 Test Item Value Reference Range Interpretation Comments GLUCOSE (test code = 2217) 103 MG/DL BUN (test code = 2208) 18 MG/DL CREATININE (test code = 2214) 0.56 MG/DL eGFR AMER. (test code 114 ML/MIN/1.73 = 65766) eGFR NON- AMER. (test 99 ML/MIN/1.73 code = 61318) SODIUM (test code = 2231) 141 MEQ/L POTASSIUM (test code = 2228) 4.1 MEQ/L CHLORIDE (test code = 2215) 103 MEQ/L CARBON DIOXIDE (test code = 26 MEQ/L 2206) CALCIUM (test code = 2209) 9.6 MG/DL BASIC METABOLIC [id number] 00:00:00 Test Item Value Reference Range Interpretation Comments GLUCOSE (test code = 2217) 103 MG/DL BUN (test code = 2208) 18 MG/DL CREATININE (test code = 2214) 0.56 MG/DL eGFR AMER. (test code 114 ML/MIN/1.73 = 35990) eGFR NON- AMER. (test 99 ML/MIN/1.73 code = 61741) SODIUM (test code = 2231) 141 MEQ/L POTASSIUM (test code = 2228) 4.1 MEQ/L CHLORIDE (test code = 2215) 103 MEQ/L CARBON DIOXIDE (test code = 26 MEQ/L 2206) CALCIUM (test code = 2209) 9.6 MG/DL CBC W/AUTO [id number] 00:00:00 Test Item Value Reference Range Interpretation [...] NUCLEATED RBCS (test code = 0.00 K/UL 95005) PROTHROMBIN TIME (PT)2021-06-15 00:00:00 Test Item Value Reference Range Interpretation Comments PROTHROMBIN TIME (PT) (test code 12.5 SECONDS = 1402) INR (test code = 84975) 0.9 CBC W/AUTO [id number] 00:00:00 Test Item Value Reference Range Interpretation [...] NUCLEATED RBCS (test code = 0.00 K/UL 65544) PROTHROMBIN TIME (PT)2021-06-15 00:00:00 Test Item Value Reference Range Interpretation Comments PROTHROMBIN TIME (PT) (test code 12.5 SECONDS = 1402) INR (test code = 24021) 0.9 CBC W/AUTO [id number] 00:00:00 Test Item Value Reference Range Interpretation [...] NUCLEATED RBCS (test code = 0.00 K/UL 72568) HEMOGLOBIN [id number] 00:00:00 Test Item Value Reference Range Interpretation Comments HEMOGLOBIN A1c (test code = 87778) 6.4 % HEMOGLOBIN [id number] 00:00:00 Test Item Value Reference Range Interpretation Comments HEMOGLOBIN A1c (test code = 02619) 6.4 % HEMOGLOBIN [id number] 00:00:00 Test Item Value Reference Range Interpretation Comments HEMOGLOBIN A1c (test code = 50038) 6.4 % [id number] 00:00:00 Test Item Value Reference Range Interpretation Comments PTT (test code = 1403) 31.0 SECONDS [id number] 00:00:00 Test Item Value Reference Range Interpretation Comments PTT (test code = 1403) 31.0 SECONDS [id number] 00:00:00 Test Item Value Reference Range Interpretation Comments PTT (test code = 1403) 31.0 SECONDS BASIC METABOLIC [id number] 00:00:00 Test Item Value Reference Range Interpretation Comments GLUCOSE (test code = 2217) 103 MG/DL BUN (test code = 2208) 18 MG/DL CREATININE (test code = 2214) 0.56 MG/DL eGFR AMER. (test code 114 ML/MIN/1.73 = 52450) eGFR NON- AMER. (test 99 ML/MIN/1.73 code = 47098) SODIUM (test code = 2231) 141 MEQ/L POTASSIUM (test code = 2228) 4.1 MEQ/L CHLORIDE (test code = 2215) 103 MEQ/L CARBON DIOXIDE (test code = 26 MEQ/L 2206) CALCIUM (test code = 2209) 9.6 MG/DL BASIC METABOLIC [id number] 00:00:00 Test Item Value Reference Range Interpretation Comments GLUCOSE (test code = 2217) 103 MG/DL BUN (test code = 2208) 18 MG/DL CREATININE (test code = 2214) 0.56 MG/DL eGFR AMER. (test code 114 ML/MIN/1.73 = 80932) eGFR NON- AMER. (test 99 ML/MIN/1.73 code = 94731) SODIUM (test code = 2231) 141 MEQ/L POTASSIUM (test code = 2228) 4.1 MEQ/L CHLORIDE (test code = 2215) 103 MEQ/L CARBON DIOXIDE (test code = 26 MEQ/L 2206) CALCIUM (test code = 2209) 9.6 MG/DL [id number] 00:00:00 Test Item Value Reference Range Interpretation Comments PTT (test code = 1403) 31.0 SECONDS PROTHROMBIN TIME (PT)2021-06-15 00:00:00 Test Item Value Reference Range Interpretation Comments PROTHROMBIN TIME (PT) (test code 12.5 SECONDS = 1402) INR (test code = 05774) 0.9 CBC W/AUTO [id number] 00:00:00 Test Item Value Reference Range Interpretation [...] NUCLEATED RBCS (test code = 0.00 K/UL 51782) PROTHROMBIN TIME (PT)2021-06-15 00:00:00 Test Item Value Reference Range Interpretation Comments PROTHROMBIN TIME (PT) (test code 12.5 SECONDS = 1402) INR (test code = 23996) 0.9 CBC W/AUTO [id number] 00:00:00 Test Item Value Reference Range Interpretation [...] NUCLEATED RBCS (test code = 0.00 K/UL 34370) CBC W/AUTO [id number] 00:00:00 Test Item Value Reference Range Interpretation [...] NUCLEATED RBCS (test code = 0.00 K/UL 35224) HEMOGLOBIN [id number] 00:00:00 Test Item Value Reference Range Interpretation Comments HEMOGLOBIN A1c (test code = 38223) 6.4 % HEMOGLOBIN [id number] 00:00:00 Test Item Value Reference Range Interpretation Comments HEMOGLOBIN A1c (test code = 40755) 6.4 % HEMOGLOBIN [id number] 00:00:00 Test Item Value Reference Range Interpretation Comments HEMOGLOBIN A1c (test code = 36200) 6.4 % [id number] 00:00:00 Test Item Value Reference Range Interpretation Comments PTT (test code = 1403) 31.0 SECONDS [id number] 00:00:00 Test Item Value Reference Range Interpretation Comments PTT (test code = 1403) 31.0 SECONDS HEMOGLOBIN [id number] 00:00:00 Test Item Value Reference Range Interpretation Comments HEMOGLOBIN A1c (test code = 45232) 6.2 % HEMOGLOBIN [id number] 00:00:00 Test Item Value Reference Range Interpretation Comments HEMOGLOBIN A1c (test code = 45884) 6.2 % HEMOGLOBIN [id number] 00:00:00 Test Item Value Reference Range Interpretation Comments HEMOGLOBIN A1c (test code = 05221) 6.2 % HEMOGLOBIN [id number] 00:00:00 Test Item Value Reference Range Interpretation Comments HEMOGLOBIN A1c (test code = 44426) 6.2 % LIPID [id number] 00:00:00 Test Item Value Reference Range Interpretation Comments CHOLESTEROL (test code = 2210) 127 MG/DL TRIGLYCERIDES (test code = 2232) 124 MG/DL HDL CHOLESTEROL (test code = 2220) 56 MG/DL CALC LDL CHOL (test code = 2237) 50 MG/DL RISK RATIO LDL/HDL (test code = 0.89 RATIO 2238) LIPID [id number] 00:00:00 Test Item Value Reference Range Interpretation Comments CHOLESTEROL (test code = 2210) 127 MG/DL TRIGLYCERIDES (test code = 2232) 124 MG/DL HDL CHOLESTEROL (test code = 2220) 56 MG/DL CALC LDL CHOL (test code = 2237) 50 MG/DL RISK RATIO LDL/HDL (test code = 0.89 RATIO 2238) COMPREHENSIVE METABOLIC [id number] 00:00:00 Test Item Value Reference Range Interpretation Comments GLUCOSE (test code = 2217) 115 MG/DL BUN (test code = 2208) 11 MG/DL CREATININE (test code = 2214) 0.57 MG/DL eGFR AMER. (test code 114 ML/MIN/1.73 = 69337) eGFR NON- AMER. (test 98 ML/MIN/1.73 code = 13430) CALC BUN/CREAT (test code = 19 RATIO [...] code = 2219) 14 U/L COMPREHENSIVE METABOLIC [id number] 00:00:00 Test Item Value Reference Range Interpretation Comments GLUCOSE (test code = 2217) 115 MG/DL BUN (test code = 2208) 11 MG/DL CREATININE (test code = 2214) 0.57 MG/DL eGFR AMER. (test code 114 ML/MIN/1.73 = 19383) eGFR NON- AMER. (test 98 ML/MIN/1.73 code = 23909) CALC BUN/CREAT (test code = 19 RATIO [...] (test code = 2219) 14 U/L LIPID [id number] 00:00:00 Test Item Value Reference Range Interpretation Comments CHOLESTEROL (test code = 2210) 127 MG/DL TRIGLYCERIDES (test code = 2232) 124 MG/DL HDL CHOLESTEROL (test code = 2220) 56 MG/DL CALC LDL CHOL (test code = 2237) 50 MG/DL RISK RATIO LDL/HDL (test code = 0.89 RATIO 2238) COMPREHENSIVE METABOLIC [id number] 00:00:00 Test Item Value Reference Range Interpretation Comments GLUCOSE (test code = 2217) 115 MG/DL BUN (test code = 2208) 11 MG/DL CREATININE (test code = 2214) 0.57 MG/DL eGFR AMER. (test code 114 ML/MIN/1.73 = 91801) eGFR NON- AMER. (test 98 ML/MIN/1.73 code = 96349) CALC BUN/CREAT (test code = 19 RATIO [...] (test code = 2219) 14 U/L HEMOGLOBIN [id number] 00:00:00 Test Item Value Reference Range Interpretation Comments HEMOGLOBIN A1c (test code = 47024) 6.2 % HEMOGLOBIN [id number] 00:00:00 Test Item Value Reference Range Interpretation Comments HEMOGLOBIN A1c (test code = 31545) 6.2 % HEMOGLOBIN [id number] 00:00:00 Test Item Value Reference Range Interpretation Comments HEMOGLOBIN A1c (test code = 57912) 6.2 % LIPID [id number] 00:00:00 Test Item Value Reference Range Interpretation Comments CHOLESTEROL (test code = 2210) 127 MG/DL TRIGLYCERIDES (test code = 2232) 124 MG/DL HDL CHOLESTEROL (test code = 2220) 56 MG/DL CALC LDL CHOL (test code = 2237) 50 MG/DL RISK RATIO LDL/HDL (test code = 0.89 RATIO 2238) LIPID [id number] 00:00:00 Test Item Value Reference Range Interpretation Comments CHOLESTEROL (test code = 2210) 127 MG/DL TRIGLYCERIDES (test code = 2232) 124 MG/DL HDL CHOLESTEROL (test code = 2220) 56 MG/DL CALC LDL CHOL (test code = 2237) 50 MG/DL RISK RATIO LDL/HDL (test code = 0.89 RATIO 2238) COMPREHENSIVE METABOLIC [id number] 00:00:00 Test Item Value Reference Range Interpretation Comments GLUCOSE (test code = 2217) 115 MG/DL BUN (test code = 2208) 11 MG/DL CREATININE (test code = 2214) 0.57 MG/DL eGFR AMER. (test code 114 ML/MIN/1.73 = 69565) eGFR NON- AMER. (test 98 ML/MIN/1.73 code = 25379) CALC BUN/CREAT (test code = 19 RATIO [...] code = 2219) 14 U/L COMPREHENSIVE METABOLIC [id number] 00:00:00 Test Item Value Reference Range Interpretation Comments GLUCOSE (test code = 2217) 115 MG/DL BUN (test code = 2208) 11 MG/DL CREATININE (test code = 2214) 0.57 MG/DL eGFR AMER. (test code 114 ML/MIN/1.73 = 09450) eGFR NON- AMER. (test 98 ML/MIN/1.73 code = 71480) CALC BUN/CREAT (test code = 19 RATIO [...] (test code = 2219) 14 U/L HEMOGLOBIN [id number] 00:00:00 Test Item Value Reference Range Interpretation Comments HEMOGLOBIN A1c (test code = 40853) 6.2 % HEMOGLOBIN [id number] 00:00:00 Test Item Value Reference Range Interpretation Comments HEMOGLOBIN A1c (test code = 38276) 6.2 % HEMOGLOBIN [id number] 00:00:00 Test Item Value Reference Range Interpretation Comments HEMOGLOBIN A1c (test code = 53672) 6.2 % LIPID [id number] 00:00:00 Test Item Value Reference Range Interpretation Comments CHOLESTEROL (test code = 2210) 127 MG/DL TRIGLYCERIDES (test code = 2232) 124 MG/DL HDL CHOLESTEROL (test code = 2220) 56 MG/DL CALC LDL CHOL (test code = 2237) 50 MG/DL RISK RATIO LDL/HDL (test code = 0.89 RATIO 2238) LIPID [id number] 00:00:00 Test Item Value Reference Range Interpretation Comments CHOLESTEROL (test code = 2210) 127 MG/DL TRIGLYCERIDES (test code = 2232) 124 MG/DL HDL CHOLESTEROL (test code = 2220) 56 MG/DL CALC LDL CHOL (test code = 2237) 50 MG/DL RISK RATIO LDL/HDL (test code = 0.89 RATIO 2238) COMPREHENSIVE METABOLIC [id number] 00:00:00 Test Item Value Reference Range Interpretation Comments GLUCOSE (test code = 2217) 115 MG/DL BUN (test code = 2208) 11 MG/DL CREATININE (test code = 2214) 0.57 MG/DL eGFR AMER. (test code 114 ML/MIN/1.73 = 31341) eGFR NON- AMER. (test 98 ML/MIN/1.73 code = 77080) CALC BUN/CREAT (test code = 19 RATIO [...] code = 2219) 14 U/L COMPREHENSIVE METABOLIC [id number] 00:00:00 Test Item Value Reference Range Interpretation Comments GLUCOSE (test code = 2217) 115 MG/DL BUN (test code = 2208) 11 MG/DL CREATININE (test code = 2214) 0.57 MG/DL eGFR AMER. (test code 114 ML/MIN/1.73 = 83878) eGFR NON- AMER. (test 98 ML/MIN/1.73 code = 39020) CALC BUN/CREAT (test code = 19 RATIO [...] (test code = 2219) 14 U/L HEMOGLOBIN [id number] 00:00:00 Test Item Value Reference Range Interpretation Comments HEMOGLOBIN A1c (test code = 08385) 6.2 % HEMOGLOBIN [id number] 00:00:00 Test Item Value Reference Range Interpretation Comments HEMOGLOBIN A1c (test code = 88470) 6.2 % LIPID [id number] 00:00:00 Test Item Value Reference Range Interpretation Comments CHOLESTEROL (test code = 2210) 127 MG/DL TRIGLYCERIDES (test code = 2232) 124 MG/DL HDL CHOLESTEROL (test code = 2220) 56 MG/DL CALC LDL CHOL (test code = 2237) 50 MG/DL RISK RATIO LDL/HDL (test code = 0.89 RATIO 2238) COMPREHENSIVE METABOLIC [id number] 00:00:00 Test Item Value Reference Range Interpretation Comments GLUCOSE (test code = 2217) 115 MG/DL BUN (test code = 2208) 11 MG/DL CREATININE (test code = 2214) 0.57 MG/DL eGFR AMER. (test code 114 ML/MIN/1.73 = 91925) eGFR NON- AMER. (test 98 ML/MIN/1.73 code = 81852) CALC BUN/CREAT (test code = 19 RATIO [...] CALC GLOBULIN (test code = 2.7 G/DL 224) CALC A/G RATIO (test code = 1.7 RATIO 4) BILIRUBIN, TOTAL (test code = 0.5 MG/DL 2206) ALKALINE PHOSPHATASE (test 93 U/L code = 2204) AST (test code = 2218) 16 U/L ALT (test code = 2219) 14 U/L HEMOGLOBIN [id number] 00:00:00 Test Item Value Reference Range Interpretation Comments HEMOGLOBIN A1c (test code = 05836) 6.2 % HEMOGLOBIN [id number] 00:00:00 Test Item Value Reference Range Interpretation Comments HEMOGLOBIN A1c (test code = 65291) 6.2 % HEMOGLOBIN [id number] 00:00:00 Test Item Value Reference Range Interpretation Comments HEMOGLOBIN A1c (test code = 97451) 6.2 % LIPID [id number] 00:00:00 Test Item Value Reference Range Interpretation Comments CHOLESTEROL (test code = 2210) 127 MG/DL TRIGLYCERIDES (test code = 2232) 124 MG/DL HDL CHOLESTEROL (test code = 2220) 56 MG/DL CALC LDL CHOL (test code = 2237) 50 MG/DL RISK RATIO LDL/HDL (test code = 0.89 RATIO 2238) LIPID [id number] 00:00:00 Test Item Value Reference Range Interpretation Comments CHOLESTEROL (test code = 2210) 127 MG/DL TRIGLYCERIDES (test code = 2232) 124 MG/DL HDL CHOLESTEROL (test code = 2220) 56 MG/DL CALC LDL CHOL (test code = 2237) 50 MG/DL RISK RATIO LDL/HDL (test code = 0.89 RATIO 2238) COMPREHENSIVE METABOLIC [id number] 00:00:00 Test Item Value Reference Range Interpretation Comments GLUCOSE (test code = 2217) 115 MG/DL BUN (test code = 2208) 11 MG/DL CREATININE (test code = 2214) 0.57 MG/DL eGFR AMER. (test code 114 ML/MIN/1.73 = 26804) eGFR NON- AMER. (test 98 ML/MIN/1.73 code = 07084) CALC BUN/CREAT (test code = 19 RATIO [...] code = 2219) 14 U/L COMPREHENSIVE METABOLIC [id number] 00:00:00 Test Item Value Reference Range Interpretation Comments GLUCOSE (test code = 2217) 115 MG/DL BUN (test code = 2208) 11 MG/DL CREATININE (test code = 2214) 0.57 MG/DL eGFR AMER. (test code 114 ML/MIN/1.73 = 17998) eGFR NON- AMER. (test 98 ML/MIN/1.73 code = 92455) CALC BUN/CREAT (test code = 19 RATIO [...] (test code = 2219) 14 U/L HEMOGLOBIN [id number] 00:00:00 Test Item Value Reference Range Interpretation Comments HEMOGLOBIN A1c (test code = 77612) 6.2 % HEMOGLOBIN [id number] 00:00:00 Test Item Value Reference Range Interpretation Comments HEMOGLOBIN A1c (test code = 37867) 6.2 % HEMOGLOBIN [id number] 00:00:00 Test Item Value Reference Range Interpretation Comments HEMOGLOBIN A1c (test code = 21137) 6.2 % LIPID [id number] 00:00:00 Test Item Value Reference Range Interpretation Comments CHOLESTEROL (test code = 2210) 127 MG/DL TRIGLYCERIDES (test code = 2232) 124 MG/DL HDL CHOLESTEROL (test code = 2220) 56 MG/DL CALC LDL CHOL (test code = 2237) 50 MG/DL RISK RATIO LDL/HDL (test code = 0.89 RATIO 2238) LIPID [id number] 00:00:00 Test Item Value Reference Range Interpretation Comments CHOLESTEROL (test code = 2210) 127 MG/DL TRIGLYCERIDES (test code = 2232) 124 MG/DL HDL CHOLESTEROL (test code = 2220) 56 MG/DL CALC LDL CHOL (test code = 2237) 50 MG/DL RISK RATIO LDL/HDL (test code = 0.89 RATIO 2238) COMPREHENSIVE METABOLIC [id number] 00:00:00 Test Item Value Reference Range Interpretation Comments GLUCOSE (test code = 2217) 115 MG/DL BUN (test code = 2208) 11 MG/DL CREATININE (test code = 2214) 0.57 MG/DL eGFR AMER. (test code 114 ML/MIN/1.73 = 61092) eGFR NON- AMER. (test 98 ML/MIN/1.73 code = 97019) CALC BUN/CREAT (test code = 19 RATIO [...] code = 2219) 14 U/L COMPREHENSIVE METABOLIC [id number] 00:00:00 Test Item Value Reference Range Interpretation Comments GLUCOSE (test code = 2217) 115 MG/DL BUN (test code = 2208) 11 MG/DL CREATININE (test code = 2214) 0.57 MG/DL eGFR AMER. (test code 114 ML/MIN/1.73 = 41076) eGFR NON- AMER. (test 98 ML/MIN/1.73 code = 78280) CALC BUN/CREAT (test code = 19 RATIO [...] (test code = 2219) 14 U/L HEMOGLOBIN [id number] 00:00:00 Test Item Value Reference Range Interpretation Comments HEMOGLOBIN A1c (test code = 41300) 6.2 % LIPID PANEL [ADDED]2020-11-12 00:00:00 Test [...] eGFR AMER. (test code 111 ML/MIN/1.73 = 82435) eGFR NON- AMER. (test 95 ML/MIN/1.73 code = 81058) CALC BUN/CREAT (test code = 32 RATIO 2235) SODIUM (test code = 2231) 144 MEQ/L POTASSIUM (test code = 2228) 4.2 MEQ/L CHLORIDE (test code = 2215) 104 MEQ/L CARBON DIOXIDE (test code = 25 MEQ/L 2205) CALCIUM (test code = 2209) 9.7 MG/DL PROTEIN, TOTAL (test code = 7.5 G/DL 2228) ALBUMIN (test code = 220) 4.4 G/DL CALC GLOBULIN (test code = 3.1 G/DL 2239) CALC A/G RATIO (test code = 1.4 RATIO 2233) BILIRUBIN, TOTAL (test code = 0.3 MG/DL 2207) ALKALINE PHOSPHATASE (test 111 U/L code = 2204) AST (test code = 2218) 13 U/L ALT (test code = 2219) 12 U/L COMPREHENSIVE METABOLIC PANEL [ADDED]2020-11-12 00:00:00 Test Item Value Reference Range Interpretation Comments GLUCOSE (test code = 2217) 105 MG/DL BUN (test code = 2208) 20 MG/DL CREATININE (test code = 2214) 0.63 MG/DL eGFR AMER. (test code 111 ML/MIN/1.73 = 01939) eGFR NON- AMER. (test 95 ML/MIN/1.73 code = 73246) CALC BUN/CREAT (test code = 32 RATIO [...] eGFR AMER. (test code 111 ML/MIN/1.73 = 88653) eGFR NON- AMER. (test 95 ML/MIN/1.73 code = 57049) CALC BUN/CREAT (test code = 32 RATIO [...] eGFR AMER. (test code 111 ML/MIN/1.73 = 55691) eGFR NON- AMER. (test 95 ML/MIN/1.73 code = 59128) CALC BUN/CREAT (test code = 32 RATIO 2235) SODIUM (test code = 2231) 144 MEQ/L POTASSIUM (test code = 2228) 4.2 MEQ/L CHLORIDE (test code = 2215) 104 MEQ/L CARBON DIOXIDE (test code = 25 MEQ/L 2205) CALCIUM (test code = 2209) 9.7 MG/DL PROTEIN, TOTAL (test code = 7.5 G/DL 222) ALBUMIN (test code = 2201) [...] eGFR AMER. (test code 111 ML/MIN/1.73 = 34759) eGFR NON- AMER. (test 95 ML/MIN/1.73 code = 67560) CALC BUN/CREAT (test code = 32 RATIO 2235) SODIUM (test code = 2231) 144 MEQ/L POTASSIUM (test code = 2228) 4.2 MEQ/L CHLORIDE (test code = 2215) 104 MEQ/L CARBON DIOXIDE (test code = 25 MEQ/L 2205) CALCIUM (test code = 2209) 9.7 MG/DL PROTEIN, TOTAL (test code = 7.5 G/DL 9) ALBUMIN (test code = 2201) 4.4 G/DL [...] eGFR AMER. (test code 111 ML/MIN/1.73 = 64069) eGFR NON- AMER. (test 95 ML/MIN/1.73 code = 71246) CALC BUN/CREAT (test code = 32 RATIO [...] eGFR AMER. (test code 111 ML/MIN/1.73 = 59995) eGFR NON- AMER. (test 95 ML/MIN/1.73 code = 82831) CALC BUN/CREAT (test code = 32 RATIO 2235) SODIUM (test code = 2231) 144 MEQ/L POTASSIUM (test code = 2228) 4.2 MEQ/L CHLORIDE (test code = 2215) 104 MEQ/L CARBON DIOXIDE (test code = 25 MEQ/L 2205) CALCIUM (test code = 2209) 9.7 MG/DL PROTEIN, TOTAL (test code = 7.5 G/DL 2228) ALBUMIN (test code = 220) [...] eGFR AMER. (test code 111 ML/MIN/1.73 = 28733) eGFR NON- AMER. (test 95 ML/MIN/1.73 code = 87041) CALC BUN/CREAT (test code = 32 RATIO [...] eGFR AMER. (test code 111 ML/MIN/1.73 = 87407) eGFR NON- AMER. (test 95 ML/MIN/1.73 code = 78217) CALC BUN/CREAT (test code = 32 RATIO 2235) SODIUM (test code = 2231) 144 MEQ/L POTASSIUM (test code = 2228) 4.2 MEQ/L CHLORIDE (test code = 2215) 104 MEQ/L CARBON DIOXIDE (test code = 25 MEQ/L 2205) CALCIUM (test code = 2209) 9.7 MG/DL PROTEIN, TOTAL (test code = 7.5 G/DL 222) ALBUMIN (test code = 2201) 4.4 G/DL CALC GLOBULIN (test code = 3.1 G/DL 2240) CALC A/G RATIO (test code = 1.4 RATIO 2234) BILIRUBIN, TOTAL (test code = 0.3 MG/DL 220) ALKALINE PHOSPHATASE (test 111 U/L code = 2204) AST (test code = 2218) 13 U/L ALT (test code = 2219) 12 U/L COMPREHENSIVE METABOLIC PANEL [ADDED]2020-11-12 00:00:00 Test Item Value Reference Range Interpretation Comments GLUCOSE (test code = 2217) 105 MG/DL BUN (test code = 2208) 20 MG/DL CREATININE (test code = 2214) 0.63 MG/DL eGFR AMER. (test code 111 ML/MIN/1.73 = 94851) eGFR NON- AMER. (test 95 ML/MIN/1.73 code = 51412) CALC BUN/CREAT (test code = 32 RATIO [...] = 0.3 MG/DL 2207) ALKALINE PHOSPHATASE (test 111 U/L code = [...] eGFR AMER. (test code 111 ML/MIN/1.73 = 63769) eGFR NON- AMER. (test 95 ML/MIN/1.73 code = 84652) CALC BUN/CREAT (test code = 32 RATIO [...] eGFR AMER. (test code 111 ML/MIN/1.73 = 80680) eGFR NON- AMER. (test 95 ML/MIN/1.73 code = 39265) CALC BUN/CREAT (test code = 32 RATIO [...] ALKALINE PHOSPHATASE (test 111 U/L code = 220) AST (test code [...] Interpretation Comments HEMOGLOBIN A1c (test code = 62954) 6.5 % CBC W/AUTO DIFF WITH PLATELETS [...] Interpretation Comments HEMOGLOBIN A1c (test code = 64866) 6.5 % HEMOGLOBIN A1c [ADDED]2020-11-10 00:00:00 Test Item Value Reference Range Interpretation Comments HEMOGLOBIN A1c (test code = 84803) 6.5 % HEMOGLOBIN A1c [ADDED]2020-11-10 00:00:00 Test Item Value Reference Range Interpretation Comments HEMOGLOBIN A1c (test code = 82822) 6.5 % HEMOGLOBIN A1c [ADDED]2020-11-10 00:00:00 Test Item Value Reference Range Interpretation Comments HEMOGLOBIN A1c (test code = 25465) 6.5 % CBC W/AUTO DIFF WITH PLATELETS [...] Interpretation Comments HEMOGLOBIN A1c (test code = 59592) 6.5 % HEMOGLOBIN A1c [ADDED]2020-11-10 00:00:00 Test Item Value Reference Range Interpretation Comments HEMOGLOBIN A1c (test code = 47304) 6.5 % HEMOGLOBIN A1c [ADDED]2020-11-10 00:00:00 Test Item Value Reference Range Interpretation Comments HEMOGLOBIN A1c (test code = 83294) 6.5 % CBC W/AUTO DIFF WITH PLATELETS [...] Interpretation Comments HEMOGLOBIN A1c (test code = 11403) 6.5 % HEMOGLOBIN A1c [ADDED]2020-11-10 00:00:00 Test Item Value Reference Range Interpretation Comments HEMOGLOBIN A1c (test code = 42231) 6.5 % HEMOGLOBIN A1c [ADDED]2020-11-10 00:00:00 Test Item Value Reference Range Interpretation Comments HEMOGLOBIN A1c (test code = 24140) 6.5 % CBC W/AUTO DIFF WITH PLATELETS [...] Interpretation Comments HEMOGLOBIN A1c (test code = 95409) 6.5 % HEMOGLOBIN A1c [ADDED]2020-11-10 00:00:00 Test Item Value Reference Range Interpretation Comments HEMOGLOBIN A1c (test code = 68222) 6.5 % CBC W/AUTO DIFF WITH PLATELETS [...] Interpretation Comments HEMOGLOBIN A1c (test code = 02661) 6.5 % HEMOGLOBIN A1c [ADDED]2020-11-10 00:00:00 Test Item Value Reference Range Interpretation Comments HEMOGLOBIN A1c (test code = 48526) 6.5 % HEMOGLOBIN A1c [ADDED]2020-11-10 00:00:00 Test Item Value Reference Range Interpretation Comments HEMOGLOBIN A1c (test code = 17729) 6.5 % CBC W/AUTO DIFF WITH PLATELETS [...] Interpretation Comments HEMOGLOBIN A1c (test code = 84488) 6.5 % HEMOGLOBIN A1c [ADDED]2020-11-10 00:00:00 Test Item Value Reference Range Interpretation Comments HEMOGLOBIN A1c (test code = 34060) 6.5 % HEMOGLOBIN A1c [ADDED]2020-11-10 00:00:00 Test Item Value Reference Range Interpretation Comments HEMOGLOBIN A1c (test code = 92961) 6.5 % CBC W/AUTO DIFF WITH PLATELETS [...] code = 1015) 264 K/UL COMPREHENSIVE METABOLIC [id number] 00:00:00 Test Item Value Reference Range Interpretation Comments GLUCOSE (test code = 2217) 174 MG/DL BUN (test code = 2208) 15 MG/DL CREATININE (test code = 2214) 0.70 MG/DL eGFR AMER. (test code 108 ML/MIN/1.73 = 37355) eGFR NON- AMER. (test 93 ML/MIN/1.73 code = 22047) CALC BUN/CREAT (test code = 21 RATIO [...] code = 2219) 12 U/L COMPREHENSIVE METABOLIC [id number] 00:00:00 Test Item Value Reference Range Interpretation Comments GLUCOSE (test code = 2217) 174 MG/DL BUN (test code = 2208) 15 MG/DL CREATININE (test code = 2214) 0.70 MG/DL eGFR AMER. (test code 108 ML/MIN/1.73 = 85487) eGFR NON- AMER. (test 93 ML/MIN/1.73 code = 13012) CALC BUN/CREAT (test code = 21 RATIO [...] (test code = 2219) 12 U/L HEMOGLOBIN [id number] 00:00:00 Test Item Value Reference Range Interpretation Comments HEMOGLOBIN A1c (test code = 89082) 5.9 % HEMOGLOBIN [id number] 00:00:00 Test Item Value Reference Range Interpretation Comments HEMOGLOBIN A1c (test code = 52734) 5.9 % HEMOGLOBIN [id number] 00:00:00 Test Item Value Reference Range Interpretation Comments HEMOGLOBIN A1c (test code = 30963) 5.9 % HEMOGLOBIN [id number] 00:00:00 Test Item Value Reference Range Interpretation Comments HEMOGLOBIN A1c (test code = 53862) 5.9 % HEMOGLOBIN [id number] 00:00:00 Test Item Value Reference Range Interpretation Comments HEMOGLOBIN A1c (test code = 95904) 5.9 % COMPREHENSIVE METABOLIC [id number] 00:00:00 Test Item Value Reference Range Interpretation Comments GLUCOSE (test code = 2217) 174 MG/DL BUN (test code = 2208) 15 MG/DL CREATININE (test code = 2214) 0.70 MG/DL eGFR AMER. (test code 108 ML/MIN/1.73 = 46156) eGFR NON- AMER. (test 93 ML/MIN/1.73 code = 21967) CALC BUN/CREAT (test code = 21 RATIO [...] code = 2219) 12 U/L COMPREHENSIVE METABOLIC [id number] 00:00:00 Test Item Value Reference Range Interpretation Comments GLUCOSE (test code = 2217) 174 MG/DL BUN (test code = 2208) 15 MG/DL CREATININE (test code = 2214) 0.70 MG/DL eGFR AMER. (test code 108 ML/MIN/1.73 = 11908) eGFR NON- AMER. (test 93 ML/MIN/1.73 code = 64635) CALC BUN/CREAT (test code = 21 RATIO [...] (test code = 2219) 12 U/L HEMOGLOBIN [id number] 00:00:00 Test Item Value Reference Range Interpretation Comments HEMOGLOBIN A1c (test code = 28649) 5.9 % HEMOGLOBIN [id number] 00:00:00 Test Item Value Reference Range Interpretation Comments HEMOGLOBIN A1c (test code = 15221) 5.9 % HEMOGLOBIN [id number] 00:00:00 Test Item Value Reference Range Interpretation Comments HEMOGLOBIN A1c (test code = 72373) 5.9 % COMPREHENSIVE METABOLIC [id number] 00:00:00 Test Item Value Reference Range Interpretation Comments GLUCOSE (test code = 2217) 174 MG/DL BUN (test code = 2208) 15 MG/DL CREATININE (test code = 2214) 0.70 MG/DL eGFR AMER. (test code 108 ML/MIN/1.73 = 93175) eGFR NON- AMER. (test 93 ML/MIN/1.73 code = 34483) CALC BUN/CREAT (test code = 21 RATIO [...] code = 2219) 12 U/L COMPREHENSIVE METABOLIC [id number] 00:00:00 Test Item Value Reference Range Interpretation Comments GLUCOSE (test code = 2217) 174 MG/DL BUN (test code = 2208) 15 MG/DL CREATININE (test code = 2214) 0.70 MG/DL eGFR AMER. (test code 108 ML/MIN/1.73 = 60962) eGFR NON- AMER. (test 93 ML/MIN/1.73 code = 94883) CALC BUN/CREAT (test code = 21 RATIO [...] (test code = 2219) 12 U/L HEMOGLOBIN [id number] 00:00:00 Test Item Value Reference Range Interpretation Comments HEMOGLOBIN A1c (test code = 69524) 5.9 % HEMOGLOBIN [id number] 00:00:00 Test Item Value Reference Range Interpretation Comments HEMOGLOBIN A1c (test code = 59882) 5.9 % HEMOGLOBIN [id number] 00:00:00 Test Item Value Reference Range Interpretation Comments HEMOGLOBIN A1c (test code = 10179) 5.9 % COMPREHENSIVE METABOLIC [id number] 00:00:00 Test Item Value Reference Range Interpretation Comments GLUCOSE (test code = 2217) 174 MG/DL BUN (test code = 2208) 15 MG/DL CREATININE (test code = 2214) 0.70 MG/DL eGFR AMER. (test code 108 ML/MIN/1.73 = 14703) eGFR NON- AMER. (test 93 ML/MIN/1.73 code = 02666) CALC BUN/CREAT (test code = 21 RATIO [...] (test code = 2219) 12 U/L HEMOGLOBIN [id number] 00:00:00 Test Item Value Reference Range Interpretation Comments HEMOGLOBIN A1c (test code = 23694) 5.9 % HEMOGLOBIN [id number] 00:00:00 Test Item Value Reference Range Interpretation Comments HEMOGLOBIN A1c (test code = 58619) 5.9 % COMPREHENSIVE METABOLIC [id number] 00:00:00 Test Item Value Reference Range Interpretation Comments GLUCOSE (test code = 2217) 174 MG/DL BUN (test code = 2208) 15 MG/DL CREATININE (test code = 2214) 0.70 MG/DL eGFR AMER. (test code 108 ML/MIN/1.73 = 29453) eGFR NON- AMER. (test 93 ML/MIN/1.73 code = 35338) CALC BUN/CREAT (test code = 21 RATIO [...] RATIO 223) BILIRUBIN, TOTAL (test code = 0.2 MG/DL 2207) ALKALINE PHOSPHATASE (test 119 U/L code = 2204) AST (test code = 2218) 16 U/L ALT (test code = 2219) 12 U/L COMPREHENSIVE METABOLIC [id number] 00:00:00 Test Item Value Reference Range Interpretation Comments GLUCOSE (test code = 2217) 174 MG/DL BUN (test code = 2208) 15 MG/DL CREATININE (test code = 2214) 0.70 MG/DL eGFR AMER. (test code 108 ML/MIN/1.73 = 97685) eGFR NON- AMER. (test 93 ML/MIN/1.73 code = 12724) CALC BUN/CREAT (test code = 21 RATIO [...] (test code = 2219) 12 U/L HEMOGLOBIN [id number] 00:00:00 Test Item Value Reference Range Interpretation Comments HEMOGLOBIN A1c (test code = 42543) 5.9 % HEMOGLOBIN [id number] 00:00:00 Test Item Value Reference Range Interpretation Comments HEMOGLOBIN A1c (test code = 89034) 5.9 % HEMOGLOBIN [id number] 00:00:00 Test Item Value Reference Range Interpretation Comments HEMOGLOBIN A1c (test code = 11597) 5.9 % COMPREHENSIVE METABOLIC [id number] 00:00:00 Test Item Value Reference Range Interpretation Comments GLUCOSE (test code = 2217) 174 MG/DL BUN (test code = 2208) 15 MG/DL CREATININE (test code = 2214) 0.70 MG/DL eGFR AMER. (test code 108 ML/MIN/1.73 = 29101) eGFR NON- AMER. (test 93 ML/MIN/1.73 code = 14639) CALC BUN/CREAT (test code = 21 RATIO [...] code = 2219) 12 U/L COMPREHENSIVE METABOLIC [id number] 00:00:00 Test Item Value Reference Range Interpretation Comments GLUCOSE (test code = 2217) 174 MG/DL BUN (test code = 2208) 15 MG/DL CREATININE (test code = 2214) 0.70 MG/DL eGFR AMER. (test code 108 ML/MIN/1.73 = 74861) eGFR NON- AMER. (test 93 ML/MIN/1.73 code = 29378) CALC BUN/CREAT (test code = 21 RATIO [...] (test code = 2219) 12 U/L HEMOGLOBIN [id number] 00:00:00 Test Item Value Reference Range Interpretation Comments HEMOGLOBIN A1c (test code = 36135) 5.9 % HEMOGLOBIN [id number] 00:00:00 Test Item Value Reference Range Interpretation Comments HEMOGLOBIN A1c (test code = 64652) 5.9 % HEMOGLOBIN [id number] 00:00:00 Test Item Value Reference Range Interpretation Comments HEMOGLOBIN A1c (test code = 83348) 5.9 % COMPREHENSIVE METABOLIC [id number] 00:00:00 Test Item Value Reference Range Interpretation Comments GLUCOSE (test code = 2217) 174 MG/DL BUN (test code = 2208) 15 MG/DL CREATININE (test code = 2214) 0.70 MG/DL eGFR AMER. (test code 108 ML/MIN/1.73 = 87022) eGFR NON- AMER. (test 93 ML/MIN/1.73 code = 67779) CALC BUN/CREAT (test code = 21 RATIO [...] code = 2219) 12 U/L COMPREHENSIVE METABOLIC [id number] 00:00:00 Test Item Value Reference Range Interpretation Comments GLUCOSE (test code = 2217) 102 MG/DL BUN (test code = 2208) 15 MG/DL CREATININE (test code = 2214) 1.00 MG/DL eGFR AMER. (test code 70 ML/MIN/1.73 = 22783) eGFR NON- AMER. (test 61 ML/MIN/1.73 code = 56246) CALC BUN/CREAT (test code = 15 RATIO [...] ALKALINE PHOSPHATASE (test 114 U/L code = 220) AST (test code = 2218) 19 U/L ALT (test code = 2219) 13 U/L COMPREHENSIVE METABOLIC [id number] 00:00:00 Test Item Value Reference Range Interpretation Comments GLUCOSE (test code = 2217) 102 MG/DL BUN (test code = 2208) 15 MG/DL CREATININE (test code = 2214) 1.00 MG/DL eGFR AMER. (test code 70 ML/MIN/1.73 = 01153) eGFR NON- AMER. (test 61 ML/MIN/1.73 code = 69224) CALC BUN/CREAT (test code = 15 RATIO 2235) SODIUM (test code = 2231) 141 MEQ/L POTASSIUM (test code = 2228) 4.2 MEQ/L CHLORIDE (test code = 2215) 100 MEQ/L CARBON DIOXIDE (test code = 26 MEQ/L 2206) CALCIUM (test code = 2209) 9.6 MG/DL PROTEIN, TOTAL (test code = 7.6 G/DL 2229) ALBUMIN (test code = 2201) 4.6 G/DL CALC GLOBULIN (test code = 3.0 G/DL 2240) CALC A/G RATIO (test code = 1.5 RATIO 2234) BILIRUBIN, TOTAL (test code = 0.2 MG/DL 2206) ALKALINE PHOSPHATASE (test 114 U/L code = 2204) AST (test code = 2218) 19 U/L ALT (test code = 2219) 13 U/L COMPREHENSIVE METABOLIC [id number] 00:00:00 Test Item Value Reference Range Interpretation Comments GLUCOSE (test code = 2217) 102 MG/DL BUN (test code = 2208) 15 MG/DL CREATININE (test code = 2214) 1.00 MG/DL eGFR AMER. (test code 70 ML/MIN/1.73 = 37007) eGFR NON- AMER. (test 61 ML/MIN/1.73 code = 98102) CALC BUN/CREAT (test code = 15 RATIO [...] (test code = 2219) 13 U/L LIPID [id number] 00:00:00 Test Item Value Reference Range Interpretation Comments CHOLESTEROL (test code = 2210) 197 MG/DL TRIGLYCERIDES (test code = 2232) 151 MG/DL HDL CHOLESTEROL (test code = 2220) 55 MG/DL CALC LDL CHOL (test code = 2237) 112 MG/DL RISK RATIO LDL/HDL (test code = 2.03 RATIO 2238) LIPID [id number] 00:00:00 Test Item Value Reference Range Interpretation Comments CHOLESTEROL (test code = 2210) 197 MG/DL TRIGLYCERIDES (test code = 2232) 151 MG/DL HDL CHOLESTEROL (test code = 2220) 55 MG/DL CALC LDL CHOL (test code = 2237) 112 MG/DL RISK RATIO LDL/HDL (test code = 2.03 RATIO 2238) HEMOGLOBIN [id number] 00:00:00 Test Item Value Reference Range Interpretation Comments HEMOGLOBIN A1c (test code = 84019) 6.1 % HEMOGLOBIN [id number] 00:00:00 Test Item Value Reference Range Interpretation Comments HEMOGLOBIN A1c (test code = 95380) 6.1 % HEMOGLOBIN [id number] 00:00:00 Test Item Value Reference Range Interpretation Comments HEMOGLOBIN A1c (test code = 61009) 6.1 % LIPID [id number] 00:00:00 Test Item Value Reference Range Interpretation Comments CHOLESTEROL (test code = 2210) 197 MG/DL TRIGLYCERIDES (test code = 2232) 151 MG/DL HDL CHOLESTEROL (test code = 2220) 55 MG/DL CALC LDL CHOL (test code = 2237) 112 MG/DL RISK RATIO LDL/HDL (test code = 2.03 RATIO 2238) HEMOGLOBIN [id number] 00:00:00 Test Item Value Reference Range Interpretation Comments HEMOGLOBIN A1c (test code = 17234) 6.1 % HEMOGLOBIN [id number] 00:00:00 Test Item Value Reference Range Interpretation Comments HEMOGLOBIN A1c (test code = 19315) 6.1 % COMPREHENSIVE METABOLIC [id number] 00:00:00 Test Item Value Reference Range Interpretation Comments GLUCOSE (test code = 2217) 102 MG/DL BUN (test code = 2208) 15 MG/DL CREATININE (test code = 2214) 1.00 MG/DL eGFR AMER. (test code 70 ML/MIN/1.73 = 05165) eGFR NON- AMER. (test 61 ML/MIN/1.73 code = 94578) CALC BUN/CREAT (test code = 15 RATIO [...] code = 2219) 13 U/L COMPREHENSIVE METABOLIC [id number] 00:00:00 Test Item Value Reference Range Interpretation Comments GLUCOSE (test code = 2217) 102 MG/DL BUN (test code = 2208) 15 MG/DL CREATININE (test code = 2214) 1.00 MG/DL eGFR AMER. (test code 70 ML/MIN/1.73 = 71095) eGFR NON- AMER. (test 61 ML/MIN/1.73 code = 57250) CALC BUN/CREAT (test code = 15 RATIO [...] BILIRUBIN, TOTAL (test code = 0.2 MG/DL 220) ALKALINE PHOSPHATASE (test 114 U/L code = 2204) AST (test code = 2218) 19 U/L ALT (test code = 2219) 13 U/L LIPID [id number] 00:00:00 Test Item Value Reference Range Interpretation Comments CHOLESTEROL (test code = 2210) 197 MG/DL TRIGLYCERIDES (test code = 2232) 151 MG/DL HDL CHOLESTEROL (test code = 2220) 55 MG/DL CALC LDL CHOL (test code = 2237) 112 MG/DL RISK RATIO LDL/HDL (test code = 2.03 RATIO 2238) LIPID [id number] 00:00:00 Test Item Value Reference Range Interpretation Comments CHOLESTEROL (test code = 2210) 197 MG/DL TRIGLYCERIDES (test code = 2232) 151 MG/DL HDL CHOLESTEROL (test code = 2220) 55 MG/DL CALC LDL CHOL (test code = 2237) 112 MG/DL RISK RATIO LDL/HDL (test code = 2.03 RATIO 2238) HEMOGLOBIN [id number] 00:00:00 Test Item Value Reference Range Interpretation Comments HEMOGLOBIN A1c (test code = 79989) 6.1 % HEMOGLOBIN [id number] 00:00:00 Test Item Value Reference Range Interpretation Comments HEMOGLOBIN A1c (test code = 09356) 6.1 % HEMOGLOBIN [id number] 00:00:00 Test Item Value Reference Range Interpretation Comments HEMOGLOBIN A1c (test code = 13821) 6.1 % COMPREHENSIVE METABOLIC [id number] 00:00:00 Test Item Value Reference Range Interpretation Comments GLUCOSE (test code = 2217) 102 MG/DL BUN (test code = 2208) 15 MG/DL CREATININE (test code = 2214) 1.00 MG/DL eGFR AMER. (test code 70 ML/MIN/1.73 = 99422) eGFR NON- AMER. (test 61 ML/MIN/1.73 code = 69771) CALC BUN/CREAT (test code = 15 RATIO [...] code = 2219) 13 U/L COMPREHENSIVE METABOLIC [id number] 00:00:00 Test Item Value Reference Range Interpretation Comments GLUCOSE (test code = 2217) 102 MG/DL BUN (test code = 2208) 15 MG/DL CREATININE (test code = 2214) 1.00 MG/DL eGFR AMER. (test code 70 ML/MIN/1.73 = 38393) eGFR NON- AMER. (test 61 ML/MIN/1.73 code = 26584) CALC BUN/CREAT (test code = 15 RATIO [...] (test code = 2219) 13 U/L LIPID [id number] 00:00:00 Test Item Value Reference Range Interpretation Comments CHOLESTEROL (test code = 2210) 197 MG/DL TRIGLYCERIDES (test code = 2232) 151 MG/DL HDL CHOLESTEROL (test code = 2220) 55 MG/DL CALC LDL CHOL (test code = 2237) 112 MG/DL RISK RATIO LDL/HDL (test code = 2.03 RATIO 2238) LIPID [id number] 00:00:00 Test Item Value Reference Range Interpretation Comments CHOLESTEROL (test code = 2210) 197 MG/DL TRIGLYCERIDES (test code = 2232) 151 MG/DL HDL CHOLESTEROL (test code = 2220) 55 MG/DL CALC LDL CHOL (test code = 2237) 112 MG/DL RISK RATIO LDL/HDL (test code = 2.03 RATIO 2238) HEMOGLOBIN [id number] 00:00:00 Test Item Value Reference Range Interpretation Comments HEMOGLOBIN A1c (test code = 47397) 6.1 % HEMOGLOBIN [id number] 00:00:00 Test Item Value Reference Range Interpretation Comments HEMOGLOBIN A1c (test code = 00079) 6.1 % HEMOGLOBIN [id number] 00:00:00 Test Item Value Reference Range Interpretation Comments HEMOGLOBIN A1c (test code = 72628) 6.1 % COMPREHENSIVE METABOLIC [id number] 00:00:00 Test Item Value Reference Range Interpretation Comments GLUCOSE (test code = 2217) 102 MG/DL BUN (test code = 2208) 15 MG/DL CREATININE (test code = 2214) 1.00 MG/DL eGFR AMER. (test code 70 ML/MIN/1.73 = 53046) eGFR NON- AMER. (test 61 ML/MIN/1.73 code = 11611) CALC BUN/CREAT (test code = 15 RATIO [...] (test code = 2219) 13 U/L LIPID [id number] 00:00:00 Test Item Value Reference Range Interpretation Comments CHOLESTEROL (test code = 2210) 197 MG/DL TRIGLYCERIDES (test code = 2232) 151 MG/DL HDL CHOLESTEROL (test code = 2220) 55 MG/DL CALC LDL CHOL (test code = 2237) 112 MG/DL RISK RATIO LDL/HDL (test code = 2.03 RATIO 2238) HEMOGLOBIN [id number] 00:00:00 Test Item Value Reference Range Interpretation Comments HEMOGLOBIN A1c (test code = 20283) 6.1 % HEMOGLOBIN [id number] 00:00:00 Test Item Value Reference Range Interpretation Comments HEMOGLOBIN A1c (test code = 55317) 6.1 % COMPREHENSIVE METABOLIC [id number] 00:00:00 Test Item Value Reference Range Interpretation Comments GLUCOSE (test code = 2217) 102 MG/DL BUN (test code = 2208) 15 MG/DL CREATININE (test code = 2214) 1.00 MG/DL eGFR AMER. (test code 70 ML/MIN/1.73 = 41644) eGFR NON- AMER. (test 61 ML/MIN/1.73 code = 95609) CALC BUN/CREAT (test code = 15 RATIO [...] code = 2219) 13 U/L COMPREHENSIVE METABOLIC [id number] 00:00:00 Test Item Value Reference Range Interpretation Comments GLUCOSE (test code = 2217) 102 MG/DL BUN (test code = 2208) 15 MG/DL CREATININE (test code = 2214) 1.00 MG/DL eGFR AMER. (test code 70 ML/MIN/1.73 = 85898) eGFR NON- AMER. (test 61 ML/MIN/1.73 code = 24190) CALC BUN/CREAT (test code = 15 RATIO 2235) SODIUM (test code = 2231) 141 MEQ/L POTASSIUM (test code = 2228) 4.2 MEQ/L CHLORIDE (test code = 2215) 100 MEQ/L CARBON DIOXIDE (test code = 26 MEQ/L 2205) CALCIUM (test code = 2209) 9.6 MG/DL PROTEIN, TOTAL (test code = 7.6 G/DL 2229) ALBUMIN (test code = 2201) 4.6 G/DL CALC GLOBULIN (test code = 3.0 G/DL 2240) CALC A/G RATIO (test code = 1.5 RATIO 2234) BILIRUBIN, TOTAL (test code = 0.2 MG/DL 2206) ALKALINE PHOSPHATASE (test 114 U/L code = 2204) AST (test code = 2218) 19 U/L ALT (test code = 2219) 13 U/L LIPID [id number] 00:00:00 Test Item Value Reference Range Interpretation Comments CHOLESTEROL (test code = 2210) 197 MG/DL TRIGLYCERIDES (test code = 2232) 151 MG/DL HDL CHOLESTEROL (test code = 2220) 55 MG/DL CALC LDL CHOL (test code = 2237) 112 MG/DL RISK RATIO LDL/HDL (test code = 2.03 RATIO 2238) LIPID [id number] 00:00:00 Test Item Value Reference Range Interpretation Comments CHOLESTEROL (test code = 2210) 197 MG/DL TRIGLYCERIDES (test code = 2232) 151 MG/DL HDL CHOLESTEROL (test code = 2220) 55 MG/DL CALC LDL CHOL (test code = 2237) 112 MG/DL RISK RATIO LDL/HDL (test code = 2.03 RATIO 2238) HEMOGLOBIN [id number] 00:00:00 Test Item Value Reference Range Interpretation Comments HEMOGLOBIN A1c (test code = 27592) 6.1 % HEMOGLOBIN [id number] 00:00:00 Test Item Value Reference Range Interpretation Comments HEMOGLOBIN A1c (test code = 86821) 6.1 % HEMOGLOBIN [id number] 00:00:00 Test Item Value Reference Range Interpretation Comments HEMOGLOBIN A1c (test code = 23324) 6.1 % COMPREHENSIVE METABOLIC [id number] 00:00:00 Test Item Value Reference Range Interpretation Comments GLUCOSE (test code = 2217) 102 MG/DL BUN (test code = 2208) 15 MG/DL CREATININE (test code = 2214) 1.00 MG/DL eGFR AMER. (test code 70 ML/MIN/1.73 = 32201) eGFR NON- AMER. (test 61 ML/MIN/1.73 code = 74222) CALC BUN/CREAT (test code = 15 RATIO [...] code = 2219) 13 U/L COMPREHENSIVE METABOLIC [id number] 00:00:00 Test Item Value Reference Range Interpretation Comments GLUCOSE (test code = 2217) 102 MG/DL BUN (test code = 2208) 15 MG/DL CREATININE (test code = 2214) 1.00 MG/DL eGFR AMER. (test code 70 ML/MIN/1.73 = 45079) eGFR NON- AMER. (test 61 ML/MIN/1.73 code = 69595) CALC BUN/CREAT (test code = 15 RATIO [...] (test code = 2219) 13 U/L LIPID [id number] 00:00:00 Test Item Value Reference Range Interpretation Comments CHOLESTEROL (test code = 2210) 197 MG/DL TRIGLYCERIDES (test code = 2232) 151 MG/DL HDL CHOLESTEROL (test code = 2220) 55 MG/DL CALC LDL CHOL (test code = 2237) 112 MG/DL RISK RATIO LDL/HDL (test code = 2.03 RATIO 2238) LIPID [id number] 00:00:00 Test Item Value Reference Range Interpretation Comments CHOLESTEROL (test code = 2210) 197 MG/DL TRIGLYCERIDES (test code = 2232) 151 MG/DL HDL CHOLESTEROL (test code = 2220) 55 MG/DL CALC LDL CHOL (test code = 2237) 112 MG/DL RISK RATIO LDL/HDL (test code = 2.03 RATIO 2238) HEMOGLOBIN [id number] 00:00:00 Test Item Value Reference Range Interpretation Comments HEMOGLOBIN A1c (test code = 21822) 6.1 % HEMOGLOBIN [id number] 00:00:00 Test Item Value Reference Range Interpretation Comments HEMOGLOBIN A1c (test code = 05890) 6.1 % HEMOGLOBIN [id number] 00:00:00 Test Item Value Reference Range Interpretation Comments HEMOGLOBIN A1c (test code = 59531) 6.1 % CULTURE, [id number] 00:00:00 Test Item Value Reference Range Interpretation Comments CULTURE, URINE (test SPECIMEN NUMBER: code = 01573) [id number] CULTURE, [id number] 00:00:00 Test Item Value Reference Range Interpretation Comments CULTURE, URINE (test SPECIMEN NUMBER: code = 09676) [id number] VAGINAL PATHOGENS DNA [id number] 00:00:00 Test Item Value Reference Range Interpretation Comments SIENA SPECIES (test code = 71813) NEGATIVE G. VAGINALIS (test code = 72695) NEGATIVE T. VAGINALIS (test code = 69796) NEGATIVE VAGINAL PATHOGENS DNA [id number] 00:00:00 Test Item Value Reference Range Interpretation Comments SIENA SPECIES (test code = 20261) NEGATIVE G. VAGINALIS (test code = 22531) NEGATIVE T. VAGINALIS (test code = 41987) NEGATIVE VAGINAL PATHOGENS DNA [id number] 00:00:00 Test Item Value Reference Range Interpretation Comments SIENA SPECIES (test code = 94376) NEGATIVE G. VAGINALIS (test code = 66578) NEGATIVE T. VAGINALIS (test code = 21483) NEGATIVE CULTURE, [id number] 00:00:00 Test Item Value Reference Range Interpretation Comments CULTURE, URINE (test SPECIMEN NUMBER: code = 00309) [id number] CULTURE, [id number] 00:00:00 Test Item Value Reference Range Interpretation Comments CULTURE, URINE (test SPECIMEN NUMBER: code = 56818) [id number] VAGINAL PATHOGENS DNA [id number] 00:00:00 Test Item Value Reference Range Interpretation Comments ISENA SPECIES (test code = 76275) NEGATIVE G. VAGINALIS (test code = 10276) NEGATIVE T. VAGINALIS (test code = 33200) NEGATIVE VAGINAL PATHOGENS DNA [id number] 00:00:00 Test Item Value Reference Range Interpretation Comments SIENA SPECIES (test code = 18511) NEGATIVE G. VAGINALIS (test code = 52444) NEGATIVE T. VAGINALIS (test code = 23232) NEGATIVE CULTURE, [id number] 00:00:00 Test Item Value Reference Range Interpretation Comments CULTURE, URINE (test SPECIMEN NUMBER: code = 03686) [id number] CULTURE, [id number] 00:00:00 Test Item Value Reference Range Interpretation Comments CULTURE, URINE (test SPECIMEN NUMBER: code = 25620) [id number] VAGINAL PATHOGENS DNA [id number] 00:00:00 Test Item Value Reference Range Interpretation Comments SIENA SPECIES (test code = 66733) NEGATIVE G. VAGINALIS (test code = 95006) NEGATIVE T. VAGINALIS (test code = 38424) NEGATIVE VAGINAL PATHOGENS DNA [id number] 00:00:00 Test Item Value Reference Range Interpretation Comments SIENA SPECIES (test code = 00502) NEGATIVE G. VAGINALIS (test code = 71576) NEGATIVE T. VAGINALIS (test code = 89056) NEGATIVE CULTURE, [id number] 00:00:00 Test Item Value Reference Range Interpretation Comments CULTURE, URINE (test SPECIMEN NUMBER: code = 76727) [id number] VAGINAL PATHOGENS DNA [id number] 00:00:00 Test Item Value Reference Range Interpretation Comments SIENA SPECIES (test code = 16716) NEGATIVE G. VAGINALIS (test code = 05927) NEGATIVE T. VAGINALIS (test code = 88340) NEGATIVE CULTURE, [id number] 00:00:00 Test Item Value Reference Range Interpretation Comments CULTURE, URINE (test SPECIMEN NUMBER: code = 89393) [id number] CULTURE, [id number] 00:00:00 Test Item Value Reference Range Interpretation Comments CULTURE, URINE (test SPECIMEN NUMBER: code = 03439) [id number] VAGINAL PATHOGENS DNA [id number] 00:00:00 Test Item Value Reference Range Interpretation Comments SIENA SPECIES (test code = 80007) NEGATIVE G. VAGINALIS (test code = 54322) NEGATIVE T. VAGINALIS (test code = 90992) NEGATIVE VAGINAL PATHOGENS DNA [id number] 00:00:00 Test Item Value Reference Range Interpretation Comments SIENA SPECIES (test code = 75598) NEGATIVE G. VAGINALIS (test code = 74972) NEGATIVE T. VAGINALIS (test code = 12345) NEGATIVE CULTURE, [id number] 00:00:00 Test Item Value Reference Range Interpretation Comments CULTURE, URINE (test SPECIMEN NUMBER: code = 38392) [id number] CULTURE, [id number] 00:00:00 Test Item Value Reference Range Interpretation Comments CULTURE, URINE (test SPECIMEN NUMBER: code = 90595) [id number] VAGINAL PATHOGENS DNA [id number] 00:00:00 Test Item Value Reference Range Interpretation Comments SIENA SPECIES (test code = 43521) NEGATIVE G. VAGINALIS (test code = 64500) NEGATIVE T. VAGINALIS (test code = 49736) NEGATIVE VAGINAL PATHOGENS DNA [id number] 00:00:00 Test Item Value Reference Range Interpretation Comments SIENA SPECIES (test code = 35584) NEGATIVE G. VAGINALIS (test code = 20632) NEGATIVE T. VAGINALIS (test code = 60461) NEGATIVE CULTURE, [id number] 00:00:00 Test Item Value Reference Range Interpretation Comments CULTURE, URINE (test SPECIMEN NUMBER: code = 29730) [id number] BASIC METABOLIC [id number] 00:00:00 Test Item Value Reference Range Interpretation Comments GLUCOSE (test code = 85 mg/dL 2345-7) UREA NITROGEN (BUN) 13 mg/dL (test code = 3094-0) CREATININE (test code = 0.55 mg/dL 0-0) eGFR NON-AFR. [place] 102 mL/min/1.73m2 (test code = 35001-3) eGFR 118 mL/min/1.73m2 (test code = 14685-4) BUN/CREATININE RATIO NOT APPLICABLE (calc) (test code = 3097-3) SODIUM (test code = 138 mmol/L 2951-2) POTASSIUM (test code = 4.3 mmol/L 2823-3) CHLORIDE (test code = 103 mmol/L 2075-0) CARBON DIOXIDE (test 28 mmol/L code = 8-9) CALCIUM (test code = 9.4 mg/dL 44684-7) BASIC METABOLIC [id number] 00:00:00 Test Item Value Reference Range Interpretation Comments GLUCOSE (test code = 85 mg/dL 2345-7) UREA NITROGEN (BUN) 13 mg/dL (test code = 3094-0) CREATININE (test code = 0.55 mg/dL 2160-0) eGFR NON-AFR. [place] 102 mL/min/1.73m2 (test code = 94067-1) eGFR 118 mL/min/1.73m2 (test code = 22543-5) BUN/CREATININE RATIO NOT APPLICABLE (calc) (test code = 3097-3) SODIUM (test code = 138 mmol/L 2951-2) POTASSIUM (test code = 4.3 mmol/L 2823-3) CHLORIDE (test code = 103 mmol/L 2075-0) CARBON DIOXIDE (test 28 mmol/L code = 8-9) CALCIUM (test code = 9.4 mg/dL 30705-0) BASIC METABOLIC [id number] 00:00:00 Test Item Value Reference Range Interpretation Comments GLUCOSE (test code = 85 mg/dL 2345-7) UREA NITROGEN (BUN) 13 mg/dL (test code = 3094-0) CREATININE (test code = 0.55 mg/dL 2160-0) eGFR NON-AFR. [place] 102 mL/min/1.73m2 (test code = 28239-8) eGFR 118 mL/min/1.73m2 (test code = 69788-0) BUN/CREATININE RATIO NOT APPLICABLE (calc) (test code = 3097-3) SODIUM (test code = 138 mmol/L 2951-2) POTASSIUM (test code = 4.3 mmol/L 2823-3) CHLORIDE (test code = 103 mmol/L 2075-0) CARBON DIOXIDE (test 28 mmol/L code = 8-9) CALCIUM (test code = 9.4 mg/dL 28405-4) BASIC METABOLIC [id number] 00:00:00 Test Item Value Reference Range Interpretation Comments GLUCOSE (test code = 85 mg/dL 2345-7) UREA NITROGEN (BUN) 13 mg/dL (test code = 3094-0) CREATININE (test code = 0.55 mg/dL 2160-0) eGFR NON-AFR. [place] 102 mL/min/1.73m2 (test code = 48043-9) eGFR 118 mL/min/1.73m2 (test code = 21073-7) BUN/CREATININE RATIO NOT APPLICABLE (calc) (test code = 3097-3) SODIUM (test code = 138 mmol/L 2951-2) POTASSIUM (test code = 4.3 mmol/L 2823-3) CHLORIDE (test code = 103 mmol/L 2075-0) CARBON DIOXIDE (test 28 mmol/L code = 2027-9) CALCIUM (test code = 9.4 mg/dL 23274-8) BASIC METABOLIC [id number] 00:00:00 Test Item Value Reference Range Interpretation Comments GLUCOSE (test code = 85 mg/dL 2345-7) UREA NITROGEN (BUN) 13 mg/dL (test code = 3094-0) CREATININE (test code = 0.55 mg/dL 2160-0) eGFR NON-AFR. [place] 102 mL/min/1.73m2 (test code = 33604-3) eGFR 118 mL/min/1.73m2 (test code = 32779-9) BUN/CREATININE RATIO NOT APPLICABLE (calc) (test code = 3097-3) SODIUM (test code = 138 mmol/L 2951-2) POTASSIUM (test code = 4.3 mmol/L 2823-3) CHLORIDE (test code = 103 mmol/L 2075-0) CARBON DIOXIDE (test 28 mmol/L code = 8-9) CALCIUM (test code = 9.4 mg/dL 38230-2) BASIC METABOLIC [id number] 00:00:00 Test Item Value Reference Range Interpretation Comments GLUCOSE (test code = 85 mg/dL 2345-7) UREA NITROGEN (BUN) 13 mg/dL (test code = 3094-0) CREATININE (test code = 0.55 mg/dL 2160-0) eGFR NON-AFR. [place] 102 mL/min/1.73m2 (test code = 43084-6) eGFR 118 mL/min/1.73m2 (test code = 49851-4) BUN/CREATININE RATIO NOT APPLICABLE (calc) (test code = 3097-3) SODIUM (test code = 138 mmol/L 2951-2) POTASSIUM (test code = 4.3 mmol/L 2823-3) CHLORIDE (test code = 103 mmol/L 2075-0) CARBON DIOXIDE (test 28 mmol/L code = 8-9) CALCIUM (test code = 9.4 mg/dL 21495-2) BASIC METABOLIC [id number] 00:00:00 Test Item Value Reference Range Interpretation Comments GLUCOSE (test code = 85 mg/dL 2345-7) UREA NITROGEN (BUN) 13 mg/dL (test code = 3094-0) CREATININE (test code = 0.55 mg/dL 2160-0) eGFR NON-AFR. [place] 102 mL/min/1.73m2 (test code = 73552-5) eGFR 118 mL/min/1.73m2 (test code = 96314-1) BUN/CREATININE RATIO NOT APPLICABLE (calc) (test code = 3097-3) SODIUM (test code = 138 mmol/L 2951-2) POTASSIUM (test code = 4.3 mmol/L 2823-3) CHLORIDE (test code = 103 mmol/L 2075-0) CARBON DIOXIDE (test 28 mmol/L code = 8-9) CALCIUM (test code = 9.4 mg/dL 87730-2) CBC W/AUTO [id number] 00:00:00 Test Item Value Reference Range Interpretation [...] code = 1015) 268 K/UL CBC W/AUTO [id number] 00:00:00 Test Item Value Reference Range Interpretation [...] code = 1015) 268 K/UL CBC W/AUTO [id number] 00:00:00 Test Item Value Reference Range Interpretation [...] code = 1015) 268 K/UL CBC W/AUTO [id number] 00:00:00 Test Item Value Reference Range Interpretation [...] code = 1015) 268 K/UL COMPREHENSIVE METABOLIC [id number] 00:00:00 Test Item Value Reference Range Interpretation Comments GLUCOSE (test code = 2217) 127 MG/DL BUN (test code = 2208) 13 MG/DL CREATININE (test code = 2214) 0.65 MG/DL eGFR AMER. (test code 112 ML/MIN/1.73 = 49662) eGFR NON- AMER. (test 96 ML/MIN/1.73 code = 87273) CALC BUN/CREAT (test code = 20 RATIO [...] code = 2219) 14 U/L COMPREHENSIVE METABOLIC [id number] 00:00:00 Test Item Value Reference Range Interpretation Comments GLUCOSE (test code = 2217) 127 MG/DL BUN (test code = 2208) 13 MG/DL CREATININE (test code = 2214) 0.65 MG/DL eGFR AMER. (test code 112 ML/MIN/1.73 = 45859) eGFR NON- AMER. (test 96 ML/MIN/1.73 code = 01962) CALC BUN/CREAT (test code = 20 RATIO [...] (test code = 2219) 14 U/L LIPID [id number] 00:00:00 Test Item Value Reference Range Interpretation Comments CHOLESTEROL (test code = 2210) 187 MG/DL TRIGLYCERIDES (test code = 2232) 137 MG/DL HDL CHOLESTEROL (test code = 2220) 52 MG/DL CALC LDL CHOL (test code = 2237) 108 MG/DL RISK RATIO LDL/HDL (test code = 2.07 RATIO 2238) LIPID [id number] 00:00:00 Test Item Value Reference Range Interpretation Comments CHOLESTEROL (test code = 2210) 187 MG/DL TRIGLYCERIDES (test code = 2232) 137 MG/DL HDL CHOLESTEROL (test code = 2220) 52 MG/DL CALC LDL CHOL (test code = 2237) 108 MG/DL RISK RATIO LDL/HDL (test code = 2.07 RATIO 2238) COMPREHENSIVE METABOLIC [id number] 00:00:00 Test Item Value Reference Range Interpretation Comments GLUCOSE (test code = 2217) 127 MG/DL BUN (test code = 2208) 13 MG/DL CREATININE (test code = 2214) 0.65 MG/DL eGFR AMER. (test code 112 ML/MIN/1.73 = 60834) eGFR NON- AMER. (test 96 ML/MIN/1.73 code = 63972) CALC BUN/CREAT (test code = 20 RATIO [...] BILIRUBIN, TOTAL (test code = 0.3 MG/DL 7) ALKALINE PHOSPHATASE (test 101 U/L code = 2204) AST (test code = 2218) 20 U/L ALT (test code = 2219) 14 U/L HEMOGLOBIN [id number] 00:00:00 Test Item Value Reference Range Interpretation Comments HEMOGLOBIN A1c (test code = 51659) 6.1 % HEMOGLOBIN [id number] 00:00:00 Test Item Value Reference Range Interpretation Comments HEMOGLOBIN A1c (test code = 88284) 6.1 % HEMOGLOBIN [id number] 00:00:00 Test Item Value Reference Range Interpretation Comments HEMOGLOBIN A1c (test code = 65471) 6.1 % HEPATITIS C [id number] 00:00:00 Test Item Value Reference Range Interpretation Comments HEPATITIS C ANTIBODY (test code NON-REACTIVE = 4675) HEPATITIS C [id number] 00:00:00 Test Item Value Reference Range Interpretation Comments HEPATITIS C ANTIBODY (test code NON-REACTIVE = 4675) [id number] 00:00:00 Test Item Value Reference Range Interpretation Comments FERRITIN (test code = 2074) 28 NG/ML [id number] 00:00:00 Test Item Value Reference Range Interpretation Comments FERRITIN (test code = 2074) 28 NG/ML IRON BINDING CAPACITY AND IRON AND % [id number] 00:00:00 Test Item Value Reference Range Interpretation Comments IRON, SERUM (test code = 2221) 55 UG/DL UNSATURATED IBC (test code = ) 324 UG/DL CALC TOTAL IBC (test code = 2076) 379 UG/DL CALC % IRON SAT (test code = 2078) 15 % IRON BINDING CAPACITY AND IRON AND % [id number] 00:00:00 Test Item Value Reference Range Interpretation Comments IRON, SERUM (test code = 2221) 55 UG/DL UNSATURATED IBC (test code = 25051) 324 UG/DL CALC TOTAL IBC (test code = 2076) 379 UG/DL CALC % IRON SAT (test code = 2078) 15 % [id number] 00:00:00 Test Item Value Reference Range Interpretation Comments TRANSFERRIN (test code = 4936) 312 MG/DL [id number] 00:00:00 Test Item Value Reference Range Interpretation Comments TRANSFERRIN (test code = 4936) 312 MG/DL VITAMIN B 12 AND FOLIC [id number] 00:00:00 Test Item Value Reference Range Interpretation Comments VITAMIN B-12 (test code = 2840) 425 PG/ML FOLIC ACID (test code = 2695) 11.3 UG/L VITAMIN B 12 AND FOLIC [id number] 00:00:00 Test Item Value Reference Range Interpretation Comments VITAMIN B-12 (test code = 2840) 425 PG/ML FOLIC ACID (test code = 2695) 11.3 UG/L LIPID [id number] 00:00:00 Test Item Value Reference Range Interpretation Comments CHOLESTEROL (test code = 2210) 187 MG/DL TRIGLYCERIDES (test code = 2232) 137 MG/DL HDL CHOLESTEROL (test code = 2220) 52 MG/DL CALC LDL CHOL (test code = 2237) 108 MG/DL RISK RATIO LDL/HDL (test code = 2.07 RATIO 2238) CBC W/AUTO [id number] 00:00:00 Test Item Value Reference Range Interpretation [...] COUNT (test code = 1015) 268 K/UL HEMOGLOBIN [id number] 00:00:00 Test Item Value Reference Range Interpretation Comments HEMOGLOBIN A1c (test code = 83675) 6.1 % CBC W/AUTO [id number] 00:00:00 Test Item Value Reference Range Interpretation [...] code = 1015) 268 K/UL CBC W/AUTO [id number] 00:00:00 Test Item Value Reference Range Interpretation [...] COUNT (test code = 1015) 268 K/UL HEMOGLOBIN [id number] 00:00:00 Test Item Value Reference Range Interpretation Comments HEMOGLOBIN A1c (test code = 41993) 6.1 % COMPREHENSIVE METABOLIC [id number] 00:00:00 Test Item Value Reference Range Interpretation Comments GLUCOSE (test code = 2217) 127 MG/DL BUN (test code = 2208) 13 MG/DL CREATININE (test code = 2214) 0.65 MG/DL eGFR AMER. (test code 112 ML/MIN/1.73 = 66519) eGFR NON- AMER. (test 96 ML/MIN/1.73 code = 35917) CALC BUN/CREAT (test code = 20 RATIO [...] code = 2219) 14 U/L COMPREHENSIVE METABOLIC [id number] 00:00:00 Test Item Value Reference Range Interpretation Comments GLUCOSE (test code = 2217) 127 MG/DL BUN (test code = 2208) 13 MG/DL CREATININE (test code = 2214) 0.65 MG/DL eGFR AMER. (test code 112 ML/MIN/1.73 = 54683) eGFR NON- AMER. (test 96 ML/MIN/1.73 code = 57074) CALC BUN/CREAT (test code = 20 RATIO [...] ALT (test code = 2219) 14 U/L HEPATITIS C [id number] 00:00:00 Test Item Value Reference Range Interpretation Comments HEPATITIS C ANTIBODY (test code NON-REACTIVE = 4675) LIPID [id number] 00:00:00 Test Item Value Reference Range Interpretation Comments CHOLESTEROL (test code = 2210) 187 MG/DL TRIGLYCERIDES (test code = 2232) 137 MG/DL HDL CHOLESTEROL (test code = 2220) 52 MG/DL CALC LDL CHOL (test code = 2237) 108 MG/DL RISK RATIO LDL/HDL (test code = 2.07 RATIO 2238) LIPID [id number] 00:00:00 Test Item Value Reference Range Interpretation Comments CHOLESTEROL (test code = 2210) 187 MG/DL TRIGLYCERIDES (test code = 2232) 137 MG/DL HDL CHOLESTEROL (test code = 2220) 52 MG/DL CALC LDL CHOL (test code = 2237) 108 MG/DL RISK RATIO LDL/HDL (test code = 2.07 RATIO 2238) HEMOGLOBIN [id number] 00:00:00 Test Item Value Reference Range Interpretation Comments HEMOGLOBIN A1c (test code = 39151) 6.1 % HEMOGLOBIN [id number] 00:00:00 Test Item Value Reference Range Interpretation Comments HEMOGLOBIN A1c (test code = 22492) 6.1 % HEMOGLOBIN [id number] 00:00:00 Test Item Value Reference Range Interpretation Comments HEMOGLOBIN A1c (test code = 69924) 6.1 % [id number] 00:00:00 Test Item Value Reference Range Interpretation Comments FERRITIN (test code = 5) 28 NG/ML HEPATITIS C [id number] 00:00:00 Test Item Value Reference Range Interpretation Comments HEPATITIS C ANTIBODY (test code NON-REACTIVE = 4675) HEPATITIS C [id number] 00:00:00 Test Item Value Reference Range Interpretation Comments HEPATITIS C ANTIBODY (test code NON-REACTIVE = 4675) [id number] 00:00:00 Test Item Value Reference Range Interpretation Comments FERRITIN (test code = 5) 28 NG/ML [id number] 00:00:00 Test Item Value Reference Range Interpretation Comments FERRITIN (test code = 5) 28 NG/ML IRON BINDING CAPACITY AND IRON AND % [id number] 00:00:00 Test Item Value Reference Range Interpretation Comments IRON, SERUM (test code = 2221) 55 UG/DL UNSATURATED IBC (test code = ) 324 UG/DL CALC TOTAL IBC (test code = 2076) 379 UG/DL CALC % IRON SAT (test code = 2078) 15 % IRON BINDING CAPACITY AND IRON AND % [id number] 00:00:00 Test Item Value Reference Range Interpretation Comments IRON, SERUM (test code = 2) 55 UG/DL UNSATURATED IBC (test code = 16994) 324 UG/DL CALC TOTAL IBC (test code = 2076) 379 UG/DL CALC % IRON SAT (test code = 2078) 15 % [id number] 00:00:00 Test Item Value Reference Range Interpretation Comments TRANSFERRIN (test code = 4936) 312 MG/DL [id number] 00:00:00 Test Item Value Reference Range Interpretation Comments TRANSFERRIN (test code = 4936) 312 MG/DL IRON BINDING CAPACITY AND IRON AND % [id number] 00:00:00 Test Item Value Reference Range Interpretation Comments IRON, SERUM (test code = 2) 55 UG/DL UNSATURATED IBC (test code = 76795) 324 UG/DL CALC TOTAL IBC (test code = 2076) 379 UG/DL CALC % IRON SAT (test code = 2078) 15 % VITAMIN B 12 AND FOLIC [id number] 00:00:00 Test Item Value Reference Range Interpretation Comments VITAMIN B-12 (test code = 2840) 425 PG/ML FOLIC ACID (test code = 2695) 11.3 UG/L VITAMIN B 12 AND FOLIC [id number] 00:00:00 Test Item Value Reference Range Interpretation Comments VITAMIN B-12 (test code = 2840) 425 PG/ML FOLIC ACID (test code = 2695) 11.3 UG/L [id number] 00:00:00 Test Item Value Reference Range Interpretation Comments TRANSFERRIN (test code = 4936) 312 MG/DL VITAMIN B 12 AND FOLIC [id number] 00:00:00 Test Item Value Reference Range Interpretation Comments VITAMIN B-12 (test code = 2840) 425 PG/ML FOLIC ACID (test code = 2695) 11.3 UG/L CBC W/AUTO [id number] 00:00:00 Test Item Value Reference Range Interpretation [...] code = 1015) 268 K/UL CBC W/AUTO [id number] 00:00:00 Test Item Value Reference Range Interpretation [...] code = 1015) 268 K/UL CBC W/AUTO [id number] 00:00:00 Test Item Value Reference Range Interpretation [...] code = 1015) 268 K/UL COMPREHENSIVE METABOLIC [id number] 00:00:00 Test Item Value Reference Range Interpretation Comments GLUCOSE (test code = 2217) 127 MG/DL BUN (test code = 2208) 13 MG/DL CREATININE (test code = 2214) 0.65 MG/DL eGFR AMER. (test code 112 ML/MIN/1.73 = 69462) eGFR NON- AMER. (test 96 ML/MIN/1.73 code = 81048) CALC BUN/CREAT (test code = 20 RATIO [...] code = 2219) 14 U/L COMPREHENSIVE METABOLIC [id number] 00:00:00 Test Item Value Reference Range Interpretation Comments GLUCOSE (test code = 2217) 127 MG/DL BUN (test code = 2208) 13 MG/DL CREATININE (test code = 2214) 0.65 MG/DL eGFR AMER. (test code 112 ML/MIN/1.73 = 99949) eGFR NON- AMER. (test 96 ML/MIN/1.73 code = 78462) CALC BUN/CREAT (test code = 20 RATIO [...] (test code = 2219) 14 U/L LIPID [id number] 00:00:00 Test Item Value Reference Range Interpretation Comments CHOLESTEROL (test code = 2210) 187 MG/DL TRIGLYCERIDES (test code = 2232) 137 MG/DL HDL CHOLESTEROL (test code = 2220) 52 MG/DL CALC LDL CHOL (test code = 2237) 108 MG/DL RISK RATIO LDL/HDL (test code = 2.07 RATIO 2238) LIPID [id number] 00:00:00 Test Item Value Reference Range Interpretation Comments CHOLESTEROL (test code = 2210) 187 MG/DL TRIGLYCERIDES (test code = 2232) 137 MG/DL HDL CHOLESTEROL (test code = 2220) 52 MG/DL CALC LDL CHOL (test code = 2237) 108 MG/DL RISK RATIO LDL/HDL (test code = 2.07 RATIO 2238) HEMOGLOBIN [id number] 00:00:00 Test Item Value Reference Range Interpretation Comments HEMOGLOBIN A1c (test code = 14223) 6.1 % HEMOGLOBIN [id number] 00:00:00 Test Item Value Reference Range Interpretation Comments HEMOGLOBIN A1c (test code = 29389) 6.1 % HEMOGLOBIN [id number] 00:00:00 Test Item Value Reference Range Interpretation Comments HEMOGLOBIN A1c (test code = 75030) 6.1 % HEPATITIS C [id number] 00:00:00 Test Item Value Reference Range Interpretation Comments HEPATITIS C ANTIBODY (test code NON-REACTIVE = 4675) HEPATITIS C [id number] 00:00:00 Test Item Value Reference Range Interpretation Comments HEPATITIS C ANTIBODY (test code NON-REACTIVE = 4675) [id number] 00:00:00 Test Item Value Reference Range Interpretation Comments FERRITIN (test code = 2075) 28 NG/ML [id number] 00:00:00 Test Item Value Reference Range Interpretation Comments FERRITIN (test code = 2075) 28 NG/ML IRON BINDING CAPACITY AND IRON AND % [id number] 00:00:00 Test Item Value Reference Range Interpretation Comments IRON, SERUM (test code = 2) 55 UG/DL UNSATURATED IBC (test code = 61889) 324 UG/DL CALC TOTAL IBC (test code = 2076) 379 UG/DL CALC % IRON SAT (test code = 2078) 15 % IRON BINDING CAPACITY AND IRON AND % [id number] 00:00:00 Test Item Value Reference Range Interpretation Comments IRON, SERUM (test code = 2) 55 UG/DL UNSATURATED IBC (test code = 92145) 324 UG/DL CALC TOTAL IBC (test code = 2076) 379 UG/DL CALC % IRON SAT (test code = 2078) 15 % [id number] 00:00:00 Test Item Value Reference Range Interpretation Comments TRANSFERRIN (test code = 4936) 312 MG/DL [id number] 00:00:00 Test Item Value Reference Range Interpretation Comments TRANSFERRIN (test code = 4936) 312 MG/DL VITAMIN B 12 AND FOLIC [id number] 00:00:00 Test Item Value Reference Range Interpretation Comments VITAMIN B-12 (test code = 2840) 425 PG/ML FOLIC ACID (test code = 2695) 11.3 UG/L VITAMIN B 12 AND FOLIC [id number] 00:00:00 Test Item Value Reference Range Interpretation Comments VITAMIN B-12 (test code = 2840) 425 PG/ML FOLIC ACID (test code = 2695) 11.3 UG/L CBC W/AUTO [id number] 00:00:00 Test Item Value Reference Range Interpretation [...] code = 1015) 268 K/UL CBC W/AUTO [id number] 00:00:00 Test Item Value Reference Range Interpretation [...] code = 1015) 268 K/UL COMPREHENSIVE METABOLIC [id number] 00:00:00 Test Item Value Reference Range Interpretation Comments GLUCOSE (test code = 2217) 127 MG/DL BUN (test code = 2208) 13 MG/DL CREATININE (test code = 2214) 0.65 MG/DL eGFR AMER. (test code 112 ML/MIN/1.73 = 65286) eGFR NON- AMER. (test 96 ML/MIN/1.73 code = 19633) CALC BUN/CREAT (test code = 20 RATIO [...] CALC GLOBULIN (test code = 2.7 G/DL 224) CALC A/G RATIO (test code = 1.6 RATIO 2234) BILIRUBIN, TOTAL (test code = 0.3 MG/DL 2207) ALKALINE PHOSPHATASE (test 101 U/L code = 2204) AST (test code = 2218) 20 U/L ALT (test code = 2219) 14 U/L LIPID [id number] 00:00:00 Test Item Value Reference Range Interpretation Comments CHOLESTEROL (test code = 2210) 187 MG/DL TRIGLYCERIDES (test code = 2232) 137 MG/DL HDL CHOLESTEROL (test code = 2220) 52 MG/DL CALC LDL CHOL (test code = 2237) 108 MG/DL RISK RATIO LDL/HDL (test code = 2.07 RATIO 2238) HEMOGLOBIN [id number] 00:00:00 Test Item Value Reference Range Interpretation Comments HEMOGLOBIN A1c (test code = 88566) 6.1 % HEMOGLOBIN [id number] 00:00:00 Test Item Value Reference Range Interpretation Comments HEMOGLOBIN A1c (test code = 95030) 6.1 % HEPATITIS C [id number] 00:00:00 Test Item Value Reference Range Interpretation Comments HEPATITIS C ANTIBODY (test code NON-REACTIVE = 4675) [id number] 00:00:00 Test Item Value Reference Range Interpretation Comments FERRITIN (test code = 2075) 28 NG/ML IRON BINDING CAPACITY AND IRON AND % [id number] 00:00:00 Test Item Value Reference Range Interpretation Comments IRON, SERUM (test code = 222) 55 UG/DL UNSATURATED IBC (test code = 36239) 324 UG/DL CALC TOTAL IBC (test code = 207) 379 UG/DL CALC % IRON SAT (test code = 2079) 15 % [id number] 00:00:00 Test Item Value Reference Range Interpretation Comments TRANSFERRIN (test code = 4936) 312 MG/DL VITAMIN B 12 AND FOLIC [id number] 00:00:00 Test Item Value Reference Range Interpretation Comments VITAMIN B-12 (test code = 2840) 425 PG/ML FOLIC ACID (test code = 2695) 11.3 UG/L CBC W/AUTO [id number] 00:00:00 Test Item Value Reference Range Interpretation [...] code = 1015) 268 K/UL CBC W/AUTO [id number] 00:00:00 Test Item Value Reference Range Interpretation [...] code = 1015) 268 K/UL CBC W/AUTO [id number] 00:00:00 Test Item Value Reference Range Interpretation [...] code = 1015) 268 K/UL COMPREHENSIVE METABOLIC [id number] 00:00:00 Test Item Value Reference Range Interpretation Comments GLUCOSE (test code = 2217) 127 MG/DL BUN (test code = 2208) 13 MG/DL CREATININE (test code = 2214) 0.65 MG/DL eGFR AMER. (test code 112 ML/MIN/1.73 = 71648) eGFR NON- AMER. (test 96 ML/MIN/1.73 code = 99256) CALC BUN/CREAT (test code = 20 RATIO [...] code = 2219) 14 U/L COMPREHENSIVE METABOLIC [id number] 00:00:00 Test Item Value Reference Range Interpretation Comments GLUCOSE (test code = 2217) 127 MG/DL BUN (test code = 2208) 13 MG/DL CREATININE (test code = 2214) 0.65 MG/DL eGFR AMER. (test code 112 ML/MIN/1.73 = 79093) eGFR NON- AMER. (test 96 ML/MIN/1.73 code = 19099) CALC BUN/CREAT (test code = 20 RATIO [...] (test code = 2219) 14 U/L LIPID [id number] 00:00:00 Test Item Value Reference Range Interpretation Comments CHOLESTEROL (test code = 2210) 187 MG/DL TRIGLYCERIDES (test code = 2232) 137 MG/DL HDL CHOLESTEROL (test code = 2220) 52 MG/DL CALC LDL CHOL (test code = 2237) 108 MG/DL RISK RATIO LDL/HDL (test code = 2.07 RATIO 2238) LIPID [id number] 00:00:00 Test Item Value Reference Range Interpretation Comments CHOLESTEROL (test code = 2210) 187 MG/DL TRIGLYCERIDES (test code = 2232) 137 MG/DL HDL CHOLESTEROL (test code = 2220) 52 MG/DL CALC LDL CHOL (test code = 2237) 108 MG/DL RISK RATIO LDL/HDL (test code = 2.07 RATIO 2238) HEMOGLOBIN [id number] 00:00:00 Test Item Value Reference Range Interpretation Comments HEMOGLOBIN A1c (test code = 95054) 6.1 % HEMOGLOBIN [id number] 00:00:00 Test Item Value Reference Range Interpretation Comments HEMOGLOBIN A1c (test code = 87451) 6.1 % HEMOGLOBIN [id number] 00:00:00 Test Item Value Reference Range Interpretation Comments HEMOGLOBIN A1c (test code = 95354) 6.1 % HEPATITIS C [id number] 00:00:00 Test Item Value Reference Range Interpretation Comments HEPATITIS C ANTIBODY (test code NON-REACTIVE = 4675) HEPATITIS C [id number] 00:00:00 Test Item Value Reference Range Interpretation Comments HEPATITIS C ANTIBODY (test code NON-REACTIVE = 4675) [id number] 00:00:00 Test Item Value Reference Range Interpretation Comments FERRITIN (test code = 2075) 28 NG/ML [id number] 00:00:00 Test Item Value Reference Range Interpretation Comments FERRITIN (test code = 2075) 28 NG/ML IRON BINDING CAPACITY AND IRON AND % [id number] 00:00:00 Test Item Value Reference Range Interpretation Comments IRON, SERUM (test code = 2) 55 UG/DL UNSATURATED IBC (test code = 63830) 324 UG/DL CALC TOTAL IBC (test code = 2076) 379 UG/DL CALC % IRON SAT (test code = 2078) 15 % IRON BINDING CAPACITY AND IRON AND % [id number] 00:00:00 Test Item Value Reference Range Interpretation Comments IRON, SERUM (test code = 2) 55 UG/DL UNSATURATED IBC (test code = 64970) 324 UG/DL CALC TOTAL IBC (test code = 2076) 379 UG/DL CALC % IRON SAT (test code = 2078) 15 % [id number] 00:00:00 Test Item Value Reference Range Interpretation Comments TRANSFERRIN (test code = 4936) 312 MG/DL [id number] 00:00:00 Test Item Value Reference Range Interpretation Comments TRANSFERRIN (test code = 4936) 312 MG/DL VITAMIN B 12 AND FOLIC [id number] 00:00:00 Test Item Value Reference Range Interpretation Comments VITAMIN B-12 (test code = 2840) 425 PG/ML FOLIC ACID (test code = 2695) 11.3 UG/L VITAMIN B 12 AND FOLIC [id number] 00:00:00 Test Item Value Reference Range Interpretation Comments VITAMIN B-12 (test code = 2840) 425 PG/ML FOLIC ACID (test code = 2695) 11.3 UG/L CBC W/AUTO [id number] 00:00:00 Test Item Value Reference Range Interpretation [...] code = 1015) 268 K/UL CBC W/AUTO [id number] 00:00:00 Test Item Value Reference Range Interpretation [...] code = 1015) 268 K/UL CBC W/AUTO [id number] 00:00:00 Test Item Value Reference Range Interpretation [...] code = 1015) 268 K/UL COMPREHENSIVE METABOLIC [id number] 00:00:00 Test Item Value Reference Range Interpretation Comments GLUCOSE (test code = 2217) 127 MG/DL BUN (test code = 2208) 13 MG/DL CREATININE (test code = 2214) 0.65 MG/DL eGFR AMER. (test code 112 ML/MIN/1.73 = 45981) eGFR NON- AMER. (test 96 ML/MIN/1.73 code = 73069) CALC BUN/CREAT (test code = 20 RATIO [...] code = 2219) 14 U/L COMPREHENSIVE METABOLIC [id number] 00:00:00 Test Item Value Reference Range Interpretation Comments GLUCOSE (test code = 2217) 127 MG/DL BUN (test code = 2208) 13 MG/DL CREATININE (test code = 2214) 0.65 MG/DL eGFR AMER. (test code 112 ML/MIN/1.73 = 96074) eGFR NON- AMER. (test 96 ML/MIN/1.73 code = 76850) CALC BUN/CREAT (test code = 20 RATIO [...] (test code = 2219) 14 U/L LIPID [id number] 00:00:00 Test Item Value Reference Range Interpretation Comments CHOLESTEROL (test code = 2210) 187 MG/DL TRIGLYCERIDES (test code = 2232) 137 MG/DL HDL CHOLESTEROL (test code = 2220) 52 MG/DL CALC LDL CHOL (test code = 2237) 108 MG/DL RISK RATIO LDL/HDL (test code = 2.07 RATIO 2238) LIPID [id number] 00:00:00 Test Item Value Reference Range Interpretation Comments CHOLESTEROL (test code = 2210) 187 MG/DL TRIGLYCERIDES (test code = 2232) 137 MG/DL HDL CHOLESTEROL (test code = 2220) 52 MG/DL CALC LDL CHOL (test code = 2237) 108 MG/DL RISK RATIO LDL/HDL (test code = 2.07 RATIO 2238) HEMOGLOBIN [id number] 00:00:00 Test Item Value Reference Range Interpretation Comments HEMOGLOBIN A1c (test code = 49221) 6.1 % HEMOGLOBIN [id number] 00:00:00 Test Item Value Reference Range Interpretation Comments HEMOGLOBIN A1c (test code = 27576) 6.1 % HEMOGLOBIN [id number] 00:00:00 Test Item Value Reference Range Interpretation Comments HEMOGLOBIN A1c (test code = 29808) 6.1 % HEPATITIS C [id number] 00:00:00 Test Item Value Reference Range Interpretation Comments HEPATITIS C ANTIBODY (test code NON-REACTIVE = 4675) HEPATITIS C [id number] 00:00:00 Test Item Value Reference Range Interpretation Comments HEPATITIS C ANTIBODY (test code NON-REACTIVE = 4675) [id number] 00:00:00 Test Item Value Reference Range Interpretation Comments FERRITIN (test code = 2075) 28 NG/ML [id number] 00:00:00 Test Item Value Reference Range Interpretation Comments FERRITIN (test code = 5) 28 NG/ML IRON BINDING CAPACITY AND IRON AND % [id number] 00:00:00 Test Item Value Reference Range Interpretation Comments IRON, SERUM (test code = 2221) 55 UG/DL UNSATURATED IBC (test code = ) 324 UG/DL CALC TOTAL IBC (test code = 2077) 379 UG/DL CALC % IRON SAT (test code = 2078) 15 % IRON BINDING CAPACITY AND IRON AND % [id number] 00:00:00 Test Item Value Reference Range Interpretation Comments IRON, SERUM (test code = 2222) 55 UG/DL UNSATURATED IBC (test code = 64290) 324 UG/DL CALC TOTAL IBC (test code = 2076) 379 UG/DL CALC % IRON SAT (test code = 2078) 15 % [id number] 00:00:00 Test Item Value Reference Range Interpretation Comments TRANSFERRIN (test code = 4936) 312 MG/DL [id number] 00:00:00 Test Item Value Reference Range Interpretation Comments TRANSFERRIN (test code = 4936) 312 MG/DL VITAMIN B 12 AND FOLIC [id number] 00:00:00 Test Item Value Reference Range Interpretation Comments VITAMIN B-12 (test code = 2840) 425 PG/ML FOLIC ACID (test code = 2695) 11.3 UG/L VITAMIN B 12 AND FOLIC [id number] 00:00:00 Test Item Value Reference Range Interpretation Comments VITAMIN B-12 (test code = 2840) 425 PG/ML FOLIC ACID (test code = 2695) 11.3 UG/L CBC W/AUTO [id number] 00:00:00 Test Item Value Reference Range Interpretation [...] code = 1015) 268 K/UL COMPREHENSIVE METABOLIC [id number] 00:00:00 Test Item Value Reference Range Interpretation Comments GLUCOSE (test code = 2217) 87 MG/DL BUN (test code = 2208) 24 MG/DL CREATININE (test code = 2214) 0.7 MG/DL eGFR AMER. (test code 104 ML/MIN/1.73 = 02373) eGFR NON- AMER. (test 86 ML/MIN/1.73 code = 00163) CALCULATED BUN/CREAT (test 34 RATIO code = [...] code = 2219) 8 U/L COMPREHENSIVE METABOLIC [id number] 00:00:00 Test Item Value Reference Range Interpretation Comments GLUCOSE (test code = 2217) 87 MG/DL BUN (test code = 2208) 24 MG/DL CREATININE (test code = 2214) 0.7 MG/DL eGFR AMER. (test code 104 ML/MIN/1.73 = 41353) eGFR NON- AMER. (test 86 ML/MIN/1.73 code = 28445) CALCULATED BUN/CREAT (test 34 RATIO code = [...] code = 2219) 8 U/L COMPREHENSIVE METABOLIC [id number] 00:00:00 Test Item Value Reference Range Interpretation Comments GLUCOSE (test code = 2217) 87 MG/DL BUN (test code = 2208) 24 MG/DL CREATININE (test code = 2214) 0.7 MG/DL eGFR AMER. (test code 104 ML/MIN/1.73 = 42297) eGFR NON- AMER. (test 86 ML/MIN/1.73 code = 11302) CALCULATED BUN/CREAT (test 34 RATIO code = [...] code = 2219) 8 U/L CBC W/AUTO [id number] 00:00:00 Test Item Value Reference Range Interpretation [...] code = 1015) 282 K/UL CBC W/AUTO [id number] 00:00:00 Test Item Value Reference Range Interpretation [...] code = 1015) 282 K/UL CBC W/AUTO [id number] 00:00:00 Test Item Value Reference Range Interpretation [...] code = 1015) 282 K/UL CBC W/AUTO [id number] 00:00:00 Test Item Value Reference Range Interpretation [...] code = 1015) 282 K/UL CBC W/AUTO [id number] 00:00:00 Test Item Value Reference Range Interpretation [...] code = 1015) 282 K/UL COMPREHENSIVE METABOLIC [id number] 00:00:00 Test Item Value Reference Range Interpretation Comments GLUCOSE (test code = 2217) 87 MG/DL BUN (test code = 2208) 24 MG/DL CREATININE (test code = 2214) 0.7 MG/DL eGFR AMER. (test code 104 ML/MIN/1.73 = 66825) eGFR NON- AMER. (test 86 ML/MIN/1.73 code = 91167) CALCULATED BUN/CREAT (test 34 RATIO code = [...] code = 2219) 8 U/L COMPREHENSIVE METABOLIC [id number] 00:00:00 Test Item Value Reference Range Interpretation Comments GLUCOSE (test code = 2217) 87 MG/DL BUN (test code = 2208) 24 MG/DL CREATININE (test code = 2214) 0.7 MG/DL eGFR AMER. (test code 104 ML/MIN/1.73 = 56052) eGFR NON- AMER. (test 86 ML/MIN/1.73 code = 92899) CALCULATED BUN/CREAT (test 34 RATIO code = [...] code = 2219) 8 U/L CBC W/AUTO [id number] 00:00:00 Test Item Value Reference Range Interpretation [...] code = 1015) 282 K/UL CBC W/AUTO [id number] 00:00:00 Test Item Value Reference Range Interpretation [...] code = 1015) 282 K/UL CBC W/AUTO [id number] 00:00:00 Test Item Value Reference Range Interpretation [...] code = 1015) 282 K/UL COMPREHENSIVE METABOLIC [id number] 00:00:00 Test Item Value Reference Range Interpretation Comments GLUCOSE (test code = 2217) 87 MG/DL BUN (test code = 2208) 24 MG/DL CREATININE (test code = 2214) 0.7 MG/DL eGFR AMER. (test code 104 ML/MIN/1.73 = 09589) eGFR NON- AMER. (test 86 ML/MIN/1.73 code = 73502) CALCULATED BUN/CREAT (test 34 RATIO code = [...] code = 2219) 8 U/L COMPREHENSIVE METABOLIC [id number] 00:00:00 Test Item Value Reference Range Interpretation Comments GLUCOSE (test code = 2217) 87 MG/DL BUN (test code = 2208) 24 MG/DL CREATININE (test code = 2214) 0.7 MG/DL eGFR AMER. (test code 104 ML/MIN/1.73 = 06547) eGFR NON- AMER. (test 86 ML/MIN/1.73 code = 90807) CALCULATED BUN/CREAT (test 34 RATIO code = [...] code = 2219) 8 U/L CBC W/AUTO [id number] 00:00:00 Test Item Value Reference Range Interpretation [...] code = 1015) 282 K/UL CBC W/AUTO [id number] 00:00:00 Test Item Value Reference Range Interpretation [...] code = 1015) 282 K/UL CBC W/AUTO [id number] 00:00:00 Test Item Value Reference Range Interpretation [...] code = 1015) 282 K/UL COMPREHENSIVE METABOLIC [id number] 00:00:00 Test Item Value Reference Range Interpretation Comments GLUCOSE (test code = 2217) 87 MG/DL BUN (test code = 2208) 24 MG/DL CREATININE (test code = 2214) 0.7 MG/DL eGFR AMER. (test code 104 ML/MIN/1.73 = 30859) eGFR NON- AMER. (test 86 ML/MIN/1.73 code = 10603) CALCULATED BUN/CREAT (test 34 RATIO code = 2235) SODIUM (test code = 2231) 138 MEQ/L POTASSIUM (test code = 2228) 4.1 MEQ/L CHLORIDE (test code = 2215) 104 MEQ/L CARBON DIOXIDE (test code = 27 MEQ/L 6) CALCIUM (test code = 2209) 9.8 MG/DL [...] code = 2219) 8 U/L CBC W/AUTO [id number] 00:00:00 Test Item Value Reference Range Interpretation [...] code = 1015) 282 K/UL CBC W/AUTO [id number] 00:00:00 Test Item Value Reference Range Interpretation [...] code = 1015) 282 K/UL COMPREHENSIVE METABOLIC [id number] 00:00:00 Test Item Value Reference Range Interpretation Comments GLUCOSE (test code = 2217) 87 MG/DL BUN (test code = 2208) 24 MG/DL CREATININE (test code = 2214) 0.7 MG/DL eGFR AMER. (test code 104 ML/MIN/1.73 = 11588) eGFR NON- AMER. (test 86 ML/MIN/1.73 code = 21837) CALCULATED BUN/CREAT (test 34 RATIO code = [...] code = 2219) 8 U/L COMPREHENSIVE METABOLIC [id number] 00:00:00 Test Item Value Reference Range Interpretation Comments GLUCOSE (test code = 2217) 87 MG/DL BUN (test code = 2208) 24 MG/DL CREATININE (test code = 2214) 0.7 MG/DL eGFR AMER. (test code 104 ML/MIN/1.73 = 08669) eGFR NON- AMER. (test 86 ML/MIN/1.73 code = 81358) CALCULATED BUN/CREAT (test 34 RATIO code = [...] code = 2219) 8 U/L CBC W/AUTO [id number] 00:00:00 Test Item Value Reference Range Interpretation [...] code = 1015) 282 K/UL CBC W/AUTO [id number] 00:00:00 Test Item Value Reference Range Interpretation [...] code = 1015) 282 K/UL CBC W/AUTO [id number] 00:00:00 Test Item Value Reference Range Interpretation [...] code = 1015) 282 K/UL COMPREHENSIVE METABOLIC [id number] 00:00:00 Test Item Value Reference Range Interpretation Comments GLUCOSE (test code = 2217) 87 MG/DL BUN (test code = 2208) 24 MG/DL CREATININE (test code = 2214) 0.7 MG/DL eGFR AMER. (test code 104 ML/MIN/1.73 = 38080) eGFR NON- AMER. (test 86 ML/MIN/1.73 code = 56021) CALCULATED BUN/CREAT (test 34 RATIO code = [...] code = 2219) 8 U/L COMPREHENSIVE METABOLIC [id number] 00:00:00 Test Item Value Reference Range Interpretation Comments GLUCOSE (test code = 2217) 87 MG/DL BUN (test code = 2208) 24 MG/DL CREATININE (test code = 2214) 0.7 MG/DL eGFR AMER. (test code 104 ML/MIN/1.73 = 53690) eGFR NON- AMER. (test 86 ML/MIN/1.73 code = 15187) CALCULATED BUN/CREAT (test 34 RATIO code = [...] code = 2219) 8 U/L CBC W/AUTO [id number] 00:00:00 Test Item Value Reference Range Interpretation [...] code = 1015) 282 K/UL CBC W/AUTO [id number] 00:00:00 Test Item Value Reference Range Interpretation [...] code = 1015) 282 K/UL CBC W/AUTO [id number] 00:00:00 Test Item Value Reference Range Interpretation [...] Lumbar Spine 3 ViewsLumbar Spine 3 Views Notes Date/Time Note Provider Source 2020-12-03 11:15:00-00:00 [id number] [facility] [id number] [place] [id number] PATIENT NAME: DINAH ALDANA ADMIT DATE: 11/29/20 ACCOUNT NO: [id number] ROOM NO: AGE: 65 REPORT TYPE: eECHOCARDIOGRAM REPORT SEX: F ADMITTING PHYSICIAN: ATTENDING PHYSICIAN: Chino Bishop MD *[facility]* [address] [place] [id number] Transthoracic Echocardiogram Patient: Dinah Aldana Study Date: 11/29/2020 BP: Location: [facility] URN: [id number] : 1955 Age: 65 Height: 59 in / 149.9 cm Gender: F Weight: 219 .5 lb / 99.8 kg BMI/BSA: 44.4 kg/m 2 / 1.92 m 2 *Ordering Physician: * Chino Bishop MD *Interpreting Physician: * Adelfo Mcneal *Surg Nurse: * Dona Sosa Indications: Hypertensive Heart Disease. Study data: Transthoracic echocardiogram. Comple te 2D, complete spectral Doppler, and color Doppler. Location: [facility]. Patient status: Outpatient. Study status: [facility]. Findings Left ventricle: The cavity size is normal. Wall thickness is normal. Systolic function is normal. The estimated eject ion fraction is 65-69%. Right ventricle: The cavity size is normal. Left atrium: The atrium is normal in size. Right atrium: The atrium is normal in size. Aorta: Aortic root: The aortic root is normal in size. Aortic valve: The valve is structurally normal. The valve is trileaflet. There is no evidence of stenosis. Th ere is no PATIENT NAME: DINAH ALDANA 3626 regurgitation. Mitral valve: The valve is structurally normal. There is trivial regurgitation. Tricuspid valve: The valve is structurally gloria l. There is trivial regurgitation. Pulmonic valve: The valve is structurally normal . There is no regurgitation. Pericardium: There is no pericardial effusion. Pulmonary arteries: The main pulmonary artery is normal-sized. Systemic veins: Inferior vena cava: The vessel is normal in size . Measurements Left ventricle Value Ref STEPHANIE, LAX 5.1 cm 3.8 - 5.2 ESD, LAX 3.3 cm 2.2 - 3.5 ESD/bsa, LAX 1.7 cm/m 2 1.3 - 2.1 FS, LAX 35 % 27 - 45 PW, ED 1.0 cm 0.6 - 0.9 IVS/PW, ED 0.95 --------- EF 65 % 54 - 74 IVRT 86 ms --------- E/e', avg, TDI 13 <=14 LVOT Value Ref Diam, S 2.03 cm --------- Area 3.2 cm 2 --------- Peak per, S 0.96 m/sec --------- Mean per, S 0.72 m/sec --------- VTI, S 22.3 cm --------- Peak grad, S 4 mm Hg --------- Mean grad, S 2 mm Hg --------- SV 72 ml --------- SV/bsa 38 ml/m 2 --------- Ventricular septum Value Ref IVS, ED 1.0 cm 0.6 - 0.9 Right ventricle Value Ref TAPSE, MM 2.1 cm 1.7 - 3.1 Pressure, S 23 mm Hg --------- Left atrium Value Ref Vol/bsa, ES, 1-p A4C 34 ml/m 2 11 - 40 Vol/bsa, ES, A/L 37 ml/m 2 16 - 34 AP dim, ES MM 3.0 cm 2.7 - 3.8 LA/Ao root ratio, MM 0.94 --------- Aortic valve Value Ref Leaflet sep, MM 1.69 cm --------- Peak v, S 1.58 m/sec --------- PATIENT NAME: DINAH ALDANA Bandar 626 Mean v, S 1.19 m/sec --------- VTI, S 36.0 cm --------- Mean grad, S 6.2 mm Hg --------- Peak grad, S 10.0 mm Hg --------- LVOT/AV, VTI ratio 0.62 --------- ISIDRA, VTI 2.01 cm 2 --------- LVOT/AV, Vpeak ratio 0.61 --------- ISIDRA, Vmax 1.97 cm 2 --------- Mitral valve Value Ref Peak E 0.82 m/sec --------- Peak A 0.86 m/sec --------- Decel time 203 ms --------- PHT 54 ms --------- Peak grad, D 2.7 mm Hg --------- Peak E/A ratio 0.94 --------- MVA, PHT 4.1 cm 2 --------- Tricuspid valve Value Ref TR peak v 2.14 m/sec <=2.8 Peak RV-RA grad, S 18 mm Hg --------- Aortic root Value Ref Root diam, ED MM 3.21 cm --------- Pulmonary artery Value Ref Pressure, S 18.1 mm Hg --------- Systemic veins Value Ref Estimated CVP 5 mm Hg --------- Pulmonary veins Value Ref A rev duration 86 ms --------- Conclusions Summary: 1. Left ventricle: The cavity size is normal. Wa ll thickness is normal. Systolic function is normal. The estimated ejec tion fraction is 65-69%. 2. Right ventricle: The RV pressure during systo le by Doppler is 23 mm Hg. Prepared and electronically signed by Adelfo Mcneal MD 12/03/2020 11:15 PATIENT NAME: DINAH ALDANA 626 at 1114 PATIENT NAME: DINAH ALDANA [id number]
[2023-02-04 14:00] LABS: Hematocrit 37.3 % (36.0-45.0); Lymphocytes % 28.2 % (15.3-44.8); MCV 86.6 fL (80-100); MPV 8.3 fL (7.6-11.3); RBC Red Blood Cell Count 4.31 M/uL (3.86-4.86)
[2023-02-04 14:24] LABS: Potassium 3.4 mEq/L (3.5-5.1); Troponin High Sensitivity 7.4 pg/mL (<58.9)
[2023-02-04] MEDS ORDERED: DIAZEPAM 10 MG/2 ML INJ SYRINGE ONE (14:52)
--- NOTE | 2023-02-04 14:56 | RAD REPORT ---
EXAM DESCRIPTION: Jennifer Single View02/04/2023 2:18 pm CLINICAL HISTORY: CHEST PAIN COMPARISON: <Comparisons> TECHNIQUE: Portable AP view of the chest. FINDINGS: The lungs show no focal consolidation. Mild perihilar interstitial changes, more prominent on the right. No pneumothorax or effusion. The cardiomediastinal contours are unremarkable. IMPRESSION: Mild perihilar interstitial changes could relate to mild vascular congestion or edema.
[2023-02-04] MEDS ORDERED: ONDANSETRON 4 MG/2 ML VIAL ONE (15:37)
--- NOTE | 2023-02-04 15:44 | RAD REPORT ---
EXAM DESCRIPTION: CT - Chest For Pe Angio - 02/04/2023 3:01 pm CLINICAL HISTORY: CHEST PAIN COMPARISON: Chest Angio dated 08/24/2022 TECHNIQUE: Thin axial CT images of the chest were obtained following administration of 100 mL Isovue 370 IV contrast. Multiplanar reconstructions, and maximum intensity projection reconstructions were generated and reviewed. Exam utilizes a protocol for optimal evaluation of pulmonary arterial tree. All CT scans are performed using dose optimization technique as appropriate and may include automated exposure control or mA/KV adjustment according to patient size. FINDINGS: Pulmonary arteries are normal. No emboli or other suspicious finding. No acute or signific ant aorta findings. No mass or infiltrate in the lung parenchyma. No pleural thickening or pleural effusion. No pneumotho rax. No abnormal mediastinal or hilar masses or lymphadenopathy seen. No chest wall mass or abnormal axill iary lymphadenopathy. Postsurgical changes at the gastric cardia. Small hiatal hernia. IMPRESSION: No evidence of acute central pulmonary emboli. Negative CT scan of the chest for other significant findings.
--- NOTE | 2023-02-04 17:20 | ER ---
Nurse's Notes [facility] Name: Anaid Martinez Age: 67 yrs Sex: Female : 1955 Arrival Date: 02/04/2023 Time: 12:34 Bed 14 Private MD: Diagnosis: Chest pain, unspecified Presentation: 02/04 12:57 Chief complaint: Patient states: Left chest pain, onset yesterday, "shooting pain" it nj1 eased up some but got bad again, "makes me dizzy". Went to urgent care and was sent to ED for further work up. Coronavirus screen: Vaccine status: Patient reports receiving the 2nd dose of the covid vaccine. Ebola Screen: Patient denies travel to an Ebola-affected area in the 21 days before illness onset. Initial Sepsis Screen: Does the patient meet any 2 criteria? No. Patient's initial sepsis screen is negative. Does the patient have a suspected source of infection? No. Patient's initial sepsis screen is negative. Risk Assessment: Do you want to hurt yourself or someone else? Patient reports no desire to harm self or others. Onset of symptoms was February 03, 2023. 12:57 Method Of Arrival: Ambulatory [facility] 12:57 Acuity: KATHY 3 nj1 Triage Assessment: 13:00 General: Appears in no apparent distress. Behavior is calm, cooperative, appropriate bp for age. Pain: Denies pain. EENT: No deficits noted. Neuro: No deficits noted. Cardiovascular: Reports chest pain. Respiratory: No deficits noted. GI: No signs and/or symptoms were reported involving the gastrointestinal system. : No signs and/or symptoms were reported regarding the genitourinary system. Derm: No deficits noted. Musculoskeletal: No deficits noted. Historical: - Allergies: 13:06 Hydrocodone-Acetaminophen; nj1 - PMHx: 13:06 Arthritis; borderline diabetic; Hypertension; nj1 - PSHx: 13:06 Knee replacement, left; nj1 - Immunization history:: Client reports receiving the 2nd dose of the Covid vaccine. - Social history:: Smoking status: Patient denies any tobacco usage or history of. Screenin:03 [facility] ED Fall Risk Assessment (Adult) History of falling in the last 3 months, bp including since admission No falls in past 3 months (0 pts). Abuse screen: Denies threats or abuse. Denies injuries from another. Nutritional screening: No deficits noted. Tuberculosis screening: No symptoms or risk factors identified. Assessment: 13:00 General: SEE TRIAGE NOTE. bp 15:00 Reassessment: No changes from previously documented assessment. Patient is alert, bp oriented x 3, equal unlabored respirations, skin warm/dry/pink. 17:31 Reassessment: DC HOME AMBULATORY. bp Vital Signs: 12:57 BP 138 / 81; Pulse 72; Resp 19; Temp 98.2(TE); Pulse Ox 95% ; Weight 103.87 kg; Height nj1 4 ft. 11 in. ; Pain 3/10; 15:42 BP 167 / 91; Pulse 72; Resp 16; Pulse Ox 94% ; bp 17:31 BP 136 / 82; Pulse 61; Resp 16; Pulse Ox 97% ; bp 12:57 Body Mass Index 46.25 (103.87 kg, 149.86 cm) nj 12:57 Pain Scale: Adult [facility] ED Course: 12:35 Patient arrived in ED. am2 12:59 Augusto Casas PA is PHCP. [facility] 12:59 Narciso Portillo MD is Attending Physician. [facility] 13:06 Triage completed. nj 13:07 Arm band placed on left wrist. EKG completed in triage. Results shown to MD. nj 13:12 Attending Physician role handed off by Narciso Portillo MD [facility] 13:12 John Mehta MD is Attending Physician. xuan 13:41 Denys Rogers, RN is Primary Nurse. bp 13:43 Radiology exam delayed due to lab results not completed at this time. (BUN/Creatinine) jg10 IV insertion attempt and/or patient not having appropriate IV at this time. 13:48 Inserted saline lock: 20 gauge in right forearm, using aseptic technique. Blood bp collected. 14:20 XRAY Chest (1 view) In Process Unspecified. EDMS 14:38 Radiology exam delayed due to pt requesting pain meds prior to scan. ls3 15:03 CT Chest For PE Angio In Process Unspecified. EDMS 16:03 Patient has correct armband on for positive identification. Bed in low position. Call bp light in reach. Side rails up X2. Client placed on continuous cardiac and pulse oximetry monitoring. NIBP monitoring applied. 17:18 José Baxter MD is Referral Physician. [facility] 17:31 No provider procedures requiring assistance completed. IV discontinued, intact, bp bleeding controlled, No redness/swelling at site. Pressure dressing applied. Patient maintains SpO2 saturation greater than 95% on room air. Administered Medications: 14:49 Drug: Diazepam IVP 2 mg Route: IVP; Site: right antecubital; iw 17:32 Follow up: Response: No adverse reaction bp 15:39 Drug: Ondansetron IVP 4 mg Route: IVP; Site: left antecubital; bp 17:32 Follow up: Response: No adverse reaction bp Medication: 17:31 VIS not applicable for this client. bp Outcome: 17:19 Discharge ordered by MD. [facility] 17:31 Discharged to home ambulatory, with family. bp 17:31 Condition: stable 17:31 Discharge instructions given to patient, Instructed on discharge instructions, follow up and referral plans. medication usage, Demonstrated understanding of instructions, follow-up care, medications, Prescriptions given X 2. 17:32 Patient left the ED. bp Signatures: Dispatcher [employer] EDMS John Mehta MD MD cha Mickail, Joel PA PA Jayne Choi, RN RN iw Mary Ellen Piper am2 Denys Rogers RN RN bp Donnie Beckford ls3 Merary Fryg10 Gisele Sosa, RN RN nj1 Corrections: (The following items were deleted from the chart) 16:03 16:02 General: bp bp
--- NOTE | 2023-02-04 17:20 | EDPHYS ---
Physician Documentation [facility] Name: Anaid Martinez Age: 67 yrs Sex: Female : 1955 Arrival Date: 02/04/2023 Time: 12:34 Bed 14 Private MD: John Wall HPI: 02/04 13:12 This 67 yrs old Female presents to ER via Ambulatory with complaints of Chest jmm Pain - left side pain. 13:12 The patient or guardian reports chest pain that is located primarily in the substernal [facility] area. Onset: gradually, 1 day(s) ago. The pain does not radiate. Associated signs and symptoms: Pertinent positives: Weakness. The chest pain is described as sharp. Duration: The patient or guardian reports multiple episodes, that wax and wane. Modifying factors: The symptoms are alleviated by nothing. the symptoms are aggravated by nothing. The patient has experienced a previous episode. Historical: - Allergies: 13:06 Hydrocodone-Acetaminophen; nj1 - PMHx: 13:06 Arthritis; borderline diabetic; Hypertension; nj1 - PSHx: 13:06 Knee replacement, left; nj1 - Immunization history:: Client reports receiving the 2nd dose of the Covid vaccine. - Social history:: Smoking status: Patient denies any tobacco usage or history of. ROS: 13:12 Constitutional: Negative for fever, chills, and weight loss. jmm 13:12 Cardiovascular: Positive for chest pain. 13:12 All other systems are negative. Exam: 13:12 Constitutional: This is a well developed, well nourished patient who is awake, alert, jmm and in no acute distress. Head/Face: atraumatic. Eyes: EOMI, no conjunctival erythema appreciated ENT: Moist Mucus Membranes Neck: Trachea midline, Supple Chest/axilla: Normal chest wall appearance and motion. Cardiovascular: Regular rate and rhythm. No edema appreciated Respiratory: Normal respirations, no respiratory distress appreciated Abdomen/GI: Non distended Back: Normal ROM Skin: General appearance color normal MS/ Extremity: Moves all extremities, no obvious deformities appreciated, no edema noted to the lower extremities Neuro: Awake and alert Psych: Behavior is normal, Mood is normal, Patient is cooperative and pleasant Vital Signs: 12:57 BP 138 / 81; Pulse 72; Resp 19; Temp 98.2(TE); Pulse Ox 95% ; Weight 103.87 kg; Height nj1 4 ft. 11 in. ; Pain 3/10; 15:42 BP 167 / 91; Pulse 72; Resp 16; Pulse Ox 94% ; bp 17:31 BP 136 / 82; Pulse 61; Resp 16; Pulse Ox 97% ; bp 12:57 Body Mass Index 46.25 (103.87 kg, 149.86 cm) nj1 12:57 Pain Scale: Adult nj1 MDM: 13:12 Patient medically screened. xuan 17:16 Differential diagnosis: acute myocardial infarction, acute pericarditis, chest wall jm pain, pericarditis, pulmonary embolus, thoracic aortic disection, unstable angina. Data reviewed: vital signs, nurses notes, lab test result(s), radiologic studies, CT scan. Consideration of Admission/Observation Escalation of care including admission/observation considered. I considered the following discharge prescriptions or medication management in the emergency department Medications were administered in the Emergency Department. See MAR. Historians other than the Patient: Daughter. Counseling: I had a detailed discussion with the patient and/or guardian regarding: the historical points, exam findings, and any diagnostic results supporting the discharge/admit diagnosis, radiology results, the need for outpatient follow up, to return to the emergency department if symptoms worsen or persist or if there are any questions or concerns that arise at home. ED course: Catheterization revealed normal coronary arteries. Patient advised to follow-up with cardiology. Repeat troponin was normal. Patient given strict return precautions. Patient understood and agrees with plan of care.. 02/04 13:30 Order name: Basic Metabolic Panel; Complete Time: 14:25 [facility] 02/04 13:30 Order name: CBC with Diff; Complete Time: 14:08 [facility] 02/04 13:30 Order name: NT PRO-BNP; Complete Time: 14:25 [facility] 02/04 13:30 Order name: Troponin HS; Complete Time: 14:25 [facility] 02/04 15:28 Order name: Troponin High Sensitivity: repeat; Complete Time: 17:01 [facility] 02/04 13:30 Order name: XRAY Chest (1 view); Complete Time: 15:04 [facility] 02/04 13:40 Order name: CT Chest For PE Angio; Complete Time: 15:46 [facility] 02/04 13:30 Order name: EKG; Complete Time: 13:31 [facility] 02/04 13:30 Order name: Cardiac monitoring; Complete Time: 13:48 [facility] 02/04 13:30 Order name: EKG - Nurse/Tech; Complete Time: 13:48 [facility] 02/04 13:30 Order name: IV Saline Lock; Complete Time: 13:48 [facility] 02/04 13:30 Order name: Labs collected and sent; Complete Time: 13:48 [facility] 02/04 13:30 Order name: O2 Per Protocol; Complete Time: 13:48 [facility] 02/04 13:30 Order name: O2 Sat Monitoring; Complete Time: 13:48 [facility] Administered Medications: 14:49 Drug: Diazepam IVP 2 mg Route: IVP; Site: right antecubital; iw 17:32 Follow up: Response: No adverse reaction bp 15:39 Drug: Ondansetron IVP 4 mg Route: IVP; Site: left antecubital; bp 17:32 Follow up: Response: No adverse reaction bp Disposition: 02/05 09:53 Co-signature as Attending Physician, Narciso Portillo MD I reviewed the patient's care rt provided by the Advanced Practice Provider and agree with the diagnosis and treatment plan. Disposition Summary: 02/04/23 17:19 Discharge Ordered Location: Home [facility] Condition: Stable [facility] Diagnosis - Chest pain, unspecified [facility] Followup: [facility] - With: José Baxter MD - When: 2 - 3 days - Reason: Recheck today's complaints, Continuance of care, Re-evaluation by your physician Discharge Instructions: - Discharge Summary Sheet [facility] - Nonspecific Chest Pain, Adult [facility] Forms: - Medication Reconciliation Form [facility] - Thank You Letter [facility] - Antibiotic Education [facility] - Prescription Opioid Use [facility] Prescriptions: - Pepcid 20 mg Oral Tablet - take 1 tablet by ORAL route every 12 hours for 10 days; 20 tablet; Refills: 0, [facility] Product Selection Permitted - orphenadrine citrate 100 mg Oral Tablet Sustained Release - take 1 tablet by ORAL route 2 times per day As needed; 20 tablet; Refills: 0, [facility] Product Selection Permitted Signatures: Dispatcher [employer] John Navarro MD MD cha Mickail, Joel, PA PA jm Jayne Hedrick RN RN iw Denys Rogers RN RN bp [place], Narciso, MD MD rt Ian, Gisele, RN RN nj1
[2023-02-04 18:16] VITALS: TEMP 98.2
[2023-02-04 18:20] VITALS: BP 136/82; O2SAT 97
--- NOTE | 2023-02-05 05:38 | EKG ---
Test Date: 2023-02-04 Test Time: 13:04:31 [employer] Operator: XUAN MEASUREMENT RESULTS: Intervals: Rate: 75 ID: [id number] QRSD: 86 QT: 388 QTc: 433 [place]: P: 45 ID: [id number] QRS: -10 T: 34 INTERPRETIVE STATEMENTS: Normal sinus rhythm Normal ECG Compared to ECG 08/24/2022 02:29:58 Sinus bradycardia no longer present Electronically Signed On 02-05-23 05:36:37 CDT by Hernandez Byrne
== END 2023-02-04 17:32 | disposition home or self-care (01) ==
LOC: ER 12:34
DX: R07.89 Other chest pain (principal); I10 Essential (primary) hypertension; R73.03 Prediabetes; Z88.5 Allergy status to narcotic agent
CPT/HCPCS: 85025; 80048; 36415; 84484 ×2; 83880; 71275; 71045; Q9967; J3360; J2405; 93005

== ENCOUNTER 2023-02-10 20:36 | Emergency (ER) | payer OTHER ==
--- OUTSIDE RECORDS SUMMARY | 2023-02-10 20:57 | XMS REPORT | Continuity of Care Document ---
:1955 Author Organization [facility] t Address [address] [place] [address] Care Team Providers Name Role Phone Melanie Simmons Primary Care Physician Chino Bishop Attending Clinician Unavailable Bob Attending Clinician Unavailable Kahlil Ruelas MD Attending Clinician KAHLIL RUELAS Attending Clinician Unavailable Doctor Unassigned, [place] Attending Clinician Unavailable MICHAELA TOWNSEND Attending Clinician Unavailable Bob Admitting Clinician Unavailable KAHLIL RUELAS Admitting Clinician Unavailable MICHAELA TOWNSEND Admitting Clinician Unavailable Payers Payer Name Policy Type Policy Number Effective Date Expiration Date Everett munoz [facility] MEDICARE [id number] COMPLETE (MEDICARE REPLACEMENT HMO) Ambetter from [id number] 2021-03-21 2021-09-20 [facility] 00:00:00 00:00:00 Spirit - CHI Plan [facility] Ambetter from [id number] Common [facility] - CHI Plan [facility] Ambetter from [id number] Common [facility] - CHI Plan [facility] Ambetter from [id number] Common [facility] - CHI Plan [facility] Ambetter from [id number] Common [facility] Spirit - CHI Plan [facility] Ambetter from [id number] Common [facility] Spirit - CHI Plan [facility] Ambetter from [id number] Common [facility] - CHI Plan [facility] Ambetter from [id number] Common [facility] Plan [facility] Ambetter from [id number] Common [facility] Plan [facility] Ambetter from [id number] Common [facility] Plan [facility] Ambetter from [id number] Common [facility] - CHI Plan [facility] Ambetter from [id number] Common [facility] - CHI Plan [facility] Ambetter from [id number] Common [facility] Plan [facility] Ambetter from [id number] Common [facility] Plan [facility] Ambetter from [id number] Common [facility] Plan [facility] Ambetter from [id number] Common [facility] Plan [facility] Ambetter from [id number] [facility] Problems Condition Condition Condition Status Onset Resolution Last Treating Co mments Source Name Details Category Date Date Treatment Clinician Date Pain of Pain of Problem Active Ngoc right knee Right Knee - Or thope joint Joint 00:00: dic 00 Sports Medicin e No known No known Disease Unive rs active active ity of problems problems [facility] [id number] Primary Problem Comm on osteoarthr Spirit itis of [place] [employer] right knee [facility] Arthritis Arthritis Problem Com mon of right of knee, Spirit knee right - CHI [facility] [id number] Pre-op Problem Common testing [facility] [id number] COVID-19 Problem Comm on Spirit - CHI [facility] [id number] 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 [facility] [id number] 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 [facility] Allergies, Adverse Reactions, Alerts Allergy Allergy Status Severity Reaction(s) Onset Inactive Treating Comm ents Source Name Type Date Date Clinician Codeine Allergy Active Ngoc to 03-12 Orthope substanc 00:00: dic e 00 Sports Medicin e [place] - Propensi Active Intraven ty to 03-12 ous adverse 00:00: reaction 00 to drug HYDROCOD DRUG Active ITCHING Univers ONE INGREDI 10-22 ity of 00:00: [place] 00 Medical Branch Hydrocod Propensi Active Itching Unive rs one ty to 10-22 ity of adverse 00:00: [place] reaction 00 Medical s Branch Hydrocod Allergy Active Itching Ngoc one to 10-22 Orthope substanc 00:00: dic e 00 Sports Medicin e Codeine Allergy Active Ngoc to 615 Orthope substanc 00:00: dic e 00 Sports Medicin e Hydrocod Propensi Active one ty to 03-05 adverse 00:00: reaction 00 to drug Social History Social Habit Start Date Stop Date Quantity Comments Source History of Common Spirit - Tobacco Use [facility] Exposure to 2022-08-11 2022-08-21 Not sure [facility] 00:00:00 13:59:00 [facility] (event) Branch Tobacco use and 2022-07-30 2022-07-30 Smokeless tobacco Un iversity of exposure 00:00:00 00:00:00 non-user [facility] Sex Ass[birth year] Universit y of 00:00:00 00:00:00 [facility] Smoking Status Start Date Stop Date Source Tobacco smoking consumption [facility] unknown Branch Never smoked tobacco [facility] Medications Ordered Filled Start Stop Current Ordering Indication Dosage Frequency Signature Comments Components Source Medication Medication Date Date Medication? Clinician (SIG) Name Name Clark Rodas 145 2021-09 No Linzess Ngoc mcg capsule [...] TWICE MOUTH e DAILY DAILY TWICE DAILY Dose 2021-09 No Unknown 2-12 00:00: 00 [...] THREE 00:00: TIMES DAILY 00 NEEDED TAKE 1 2021-09 No 10 TABLET BY 2-12 MOUTH ONCE 00:00: A DAY WITH 00 FOOD FOR 11 DAYS TAKE BY 2021-09 No MOUTH 1 2-12 TABLET 00:00: EVERY 4 TO 00 6 HOURS NEEDED FOR PAIN TAKE 1 2021-09 No 25 TABLET BY 2-12 MOUTH EVERY 00:00: 6 TO 8 00 HOURS Dose 2021-09 No Unknown 2-12 00:00: 00 TAKE 1 2021-09 No 50 TABLET BY 2-12 MOUTH EVERY 00:00: 6 HOURS 00 NEEDED FOR PAIN metformin metformin 2021-09 No metformin Ngoc 500 mg 500 mg 2-12 500 mg Orthope tablet TAKE tablet TAKE 00:00: tablet dic 1 TABLET BY 1 TABLET BY 00 TAKE 1 Sports MOUTH DAILY MOUTH DAILY TABLET BY Medicin MOUTH e DAILY TAKE 2021-09 No CAPSULE BY 2-12 MOUTH DAILY 00:00: 00 Dose 2021-09 No Unknown 2-12 00:00: 00 Dose 2021-09 No Unknown 2-12 00:00: 00 Dose 2021-09 No Unknown 2-12 00:00: 00 Dose 2021-09 No 100 Unknown 2-12 00:00: 00 TAKE 2021-09 No TABLET BY 2-12 MOUTH EVERY 00:00: 6 HOURS 00 NEEDED FOR PAIN 8 DAYS Dose 2021-09 No Unknown 2-12 00:00: 00 Dose 2021-09 No Unknown 2-12 00:00: 00 TAKE 2021-09 No 10 TABLET BY 2-12 MOUTH DAILY 00:00: 00 Dose 2021-09 No Unknown 2-12 00:00: 00 Dose 2021-09 No Unknown 2- 00:00: 00 TAKE 2021-09 No 20 TABLET 2-12 DAILY. 00:00: 00 Dose 2021-09 No Unknown 2-12 00:00: 00 TAKE 2021-09 No 100 TABLET BY 2-12 MOUTH DAILY 00:00: 00 TAKE 2021-09 No 100 CAPSULE BY 2-12 MOUTH [...] CAPSULE BY 2-12 MOUTH DAILY 00:00: 00 rosuvastati rosuvastati 2021-09 No rosuvastat Ngoc n 10 mg n 10 mg 2-12 in 10 mg Ortho pe tablet TAKE tablet TAKE 00:00: tablet dic 1 TABLET BY 1 TABLET BY 00 TAKE 1 Sports MOUTH DAILY MOUTH DAILY TABLET BY Medicin MOUTH e DAILY Xarelto 10 Xarelto 10 2021-09 No Xarelto 10 Ngco mg tablet mg tablet 2-12 mg tablet Orthope 00:00: dic 00 Sports Medicin e amLODIPine 2021-09 Yes 5mg Take 5 mg Un [place] 5 mg tablet 1-09 by mouth ity of 13:48: in the [place] [address] morning. Medical Branch metFORMIN 2021-09 Yes 500mg Take 500 Uni vers 500 mg 1-09 mg by ity of tablet 13:48: mouth in [place] [address] the Medical morning. Branch rosuvastati 2021-09 Yes 20mg Take 20 mg Univers n 20 mg 1-09 by mouth ity of tablet 13:48: at [place] [address] bedtime. Medical Branch amLODIPine 2021-09 Yes 5mg Take 5 mg Un [place] 5 mg tablet 1-09 by mouth ity of 13:48: in the [place] [address] morning. Medical Branch metFORMIN 2021-09 Yes 500mg Take 500 Uni vers 500 mg 1-09 mg by ity of tablet 13:48: mouth in [place] [address] the Medical morning. Branch rosuvastati 2021-09 Yes 20mg Take 20 mg Univers n 20 mg 1-09 by mouth ity of tablet 13:48: at [place] [address] bedtime. Medical Branch amLODIPine 2021-09 Yes 5mg Take 5 mg Un [place] 5 mg tablet 1-09 by mouth ity of 13:48: in the [place] [address] morning. Medical Branch metFORMIN 2021-09 Yes 500mg Take 500 Uni vers 500 mg 1-09 mg by ity of tablet 13:48: mouth in [place] [address] the Medical morning. Branch rosuvastati 2021-09 Yes 20mg Take 20 mg Univers n 20 mg 1-09 by mouth ity of tablet 13:48: at [place] [address] bedtime. Medical Branch amLODIPine 2021-09 Yes 5mg Take 5 mg Un [place] 5 mg tablet 1-09 by mouth ity of 13:48: in the [place] [address] morning. Medical Branch metFORMIN 2021-09 Yes 500mg Take 500 Uni vers 500 mg 1-09 mg by ity of tablet 13:48: mouth in [place] [address] the Medical morning. Branch rosuvastati 2021-09 Yes 20mg Take 20 mg Univers n 20 mg 1-09 by mouth ity of tablet 13:48: at [place] [address] bedtime. Medical Branch amLODIPine 2021-09 Yes 5mg Take 5 mg Un [place] 5 mg tablet 1-09 by mouth ity of 13:48: in the [place] [address] morning. Medical Branch metFORMIN 2021-09 Yes 500mg Take 500 Uni vers 500 mg 1-09 mg by ity of tablet 13:48: mouth in [place] [address] the Medical morning. Branch rosuvastati 2021-09 Yes 20mg Take 20 mg Univers n 20 mg 1-09 by mouth ity of tablet 13:48: at [place] [address] bedtime. Medical Branch amLODIPine 2021-09 Yes 5mg Take 5 mg Un [place] 5 mg tablet 1-09 by mouth ity of 13:48: in the [place] [address] morning. Medical Branch metFORMIN 2021-09 Yes 500mg Take 500 Uni vers 500 mg 1-09 mg by ity of tablet 13:48: mouth in [place] [address] the [facility] morning. Branch rosuvastati 2021-09 Yes 20mg Take 20 mg Univers n 20 mg 1-09 by mouth ity of tablet 13:48: at [place] [address] bedtime. Medical Branch TAKE 1 2022-0 No [...] 2022-0 No Unknown 6-22 00:00: 00 gabapentin gabapentin 2022-0 No gabapentin Ngoc 300 mg 300 mg 6-22 300 mg Orthope capsule capsule 00:00: capsule dic TAKE 1 TAKE 1 00 TAKE 1 Sports CAPSULE BY CAPSULE BY CAPSULE BY Medicin MOUTH TWICE MOUTH TWICE MOUTH e DAILY DAILY TWICE DAILY gabapentin 2022-0 No 1mg 300 mg 6-06 [...] 3-22 00:00: 00 Dose 2022-0 No Unknown 3- 00:00: 00 Dose 2022-0 No Unknown 3- 00:00: 00 Dose 2022-0 No Unknown 3- 00:00: 00 Dose 2022-0 No Unknown 3- 00:00: 00 Dose 2022-0 No Unknown 3- 00:00: 00 Dose 2022-0 No Unknown 3- 00:00: 00 Dose 2022-0 No Unknown 3- 00:00: 00 Dose 2022-0 No Unknown 3- 00:00: 00 Dose 2022-0 No Unknown 3- 00:00: 00 Dose 2022-0 No Unknown 3- 00:00: 00 Dose 2022-0 No Unknown 3- 00:00: 00 Dose 2022-0 No Unknown 3- 00:00: 00 Dose 2-0 No Unknown 3 00:00: 00 Dose 2022-0 No Unknown 3 00:00: 00 ibuprofen ibuprofen 2-0 No 1mg ibuprofen Ngoc 800 mg 800 mg 322 800 mg Orthope tablet 1 mg tablet 1 mg 00:00: tablet 1 dic by oral by oral 00 mg by oral Spo rts route. route. route. Medicin e gabapentin gabapentin 2021-0 No 1{capsu TID gabapentin [...] 25 mg 1-20 tablet 00:00: 00 trazodone 2-0 No 1mg 100 mg 1-20 [...] HCl 25 mg 1-20 tablet 00:00: 00 hydroxyzine hydroxyzine 2-0 No 1mg hydroxyzin Ngoc HCl 25 mg HCl 25 mg 1-20 e HCl 25 O rthope tablet 1 mg tablet 1 mg 00:00: mg tablet dic by oral by oral 00 1 mg by Sports route. route. oral Medicin route. e oxybutynin oxybutynin 2-0 No 1mg oxybutynin Ngoc chloride ER chloride ER 1-20 chloride Orthope 10 mg 10 mg 00:00: ER 10 mg dic tablet,exte tablet,exte 00 tablet,ext Sports nded nded ended Medicin release 24 release 24 release 24 e hr 1 mg by hr 1 mg by hr 1 mg by oral route. oral route. oral route. trazodone trazodone 2-0 No 1mg trazodone Ngoc 100 mg 100 mg 1-20 100 mg Orthope tablet 1 mg tablet 1 mg 00:00: tablet 1 dic by oral by oral 00 mg by oral Spo rts route. route. route. Medicin e traMADol traMADol 2021-0 No 1{table traMADol HCl [...] 1-11 t_as_ne 00:00: eded} 00 traMADol traMADol 2021-0 No [...] t_as_ne HCl 50 MG 00:00: eded} 00 tramadol 50 tramadol 50 2021-0 No 1{table [...] 50 MG -11 t_as_ne 00:00: eded} 00 Bromfed DM 2020-09 [...] 00 Bupivicaine Bupivicaine 2020-0 No 4mL Common [facility] 9-22 Spirit 00:00: - CHI 00 [facility] Kenalog Kenalog 2020-0 No 40mg Common (Triamcinol (Triamcinol 9-22 S pirit one) one) 00:00: - CHI 00 [facility] Bupivicaine Bupivicaine 2020-0 No 4mL Common Harris Harris 9-22 Spirit 00:00: - CHI 00 [facility] Kenalog Kenalog 2020-0 No 40mg Common (Triamcinol (Triamcinol 9-22 S pirit one) one) 00:00: - CHI 00 [facility] Bupivicaine Bupivicaine 2020-0 No 4mL Common Harris Harris 9-22 Spirit 00:00: - CHI 00 [facility] Kenalog Kenalog 2020-0 No 40mg Common (Triamcinol (Triamcinol 9-22 S pirit one) one) 00:00: - CHI 00 [facility] Bupivicaine Bupivicaine 2020-0 No 4mL Common [facility] Harris 9-22 Spirit 00:00: - CHI 00 [facility] Kenalog Kenalog 2020-0 No 40mg Common (Triamcinol (Triamcinol 9-22 S pirit one) one) 00:00: - CHI 00 [facility] Bupivicaine Bupivicaine 2020-0 No 4mL Common [facility] Harris 9-22 Spirit 00:00: - CHI 00 [facility] Kenalog Kenalog 2020-0 No 40mg Common (Triamcinol (Triamcinol 9-22 S pirit one) one) 00:00: - CHI 00 [facility] Bupivicaine Bupivicaine 2020-0 No 4mL Common Harris Harris 9-22 Spirit 00:00: - CHI 00 [facility] Kenalog Kenalog 2020-0 No 40mg Common (Triamcinol (Triamcinol 9-22 S pirit one) one) 00:00: - CHI 00 [facility] Bupivicaine Bupivicaine 2020-0 No 4mL Common [facility] Harris 9-22 Spirit 00:00: - CHI 00 [facility] Kenalog Kenalog 2020-0 No 40mg Common (Triamcinol (Triamcinol 9-22 S pirit one) one) 00:00: - CHI 00 [facility] Bupivicaine Bupivicaine 2020-0 No 4mL Common Harris Harris 9-22 Spirit 00:00: - CHI 00 [facility] Kenalog Kenalog 2020-0 No 40mg Common (Triamcinol (Triamcinol 9-22 S pirit one) one) 00:00: - CHI 00 [facility] Bupivicaine Bupivicaine 2020-0 No 4mL Common Harris Harris 9-22 Spirit 00:00: - CHI 00 [facility] Kenalog Kenalog 2020-0 No 40mg Common (Triamcinol (Triamcinol 9-22 S pirit one) one) 00:00: - CHI 00 [facility] Bupivicaine Bupivicaine 2020-0 No 4mL Common Harris Harris 9-22 Spirit 00:00: - CHI 00 [facility] Kenalog Kenalog 2020-0 No 40mg Common (Triamcinol (Triamcinol 9-22 S pirit one) one) 00:00: - CHI 00 [facility] Bupivicaine Bupivicaine 2020-0 No 4mL Common Harris Harris 9-22 Spirit 00:00: - CHI 00 [facility] Kenalog Kenalog 2020-0 No 40mg Common (Triamcinol (Triamcinol 9-22 S pirit one) one) 00:00: - CHI 00 [facility] Bupivicaine Bupivicaine 2020-0 No 4mL Common Harris Harris 9-22 Spirit 00:00: - CHI 00 [facility] Kenalog Kenalog 2020-0 No 40mg Common (Triamcinol (Triamcinol 9-22 S pirit one) one) 00:00: - CHI 00 [facility] cetirizine 2020-0 No 1mg 10 mg 5-19 [...] mg 5-14 Spirit 00:00: - CHI 00 [facility] Hyalgan 20 Hyalgan 20 2020-0 No 2mL C ommon mg mg 5-14 Spirit 00:00: - CHI [facility] Hyalgan 20 Hyalgan 20 2020-0 No 2mL C ommon mg mg 5-14 Spirit 00:00: - CHI [facility] Hyalgan 20 Hyalgan 20 2020-0 No 2mL C ommon mg mg 5-14 Spirit 00:00: - CHI 00 [facility] Hyalgan 20 Hyalgan 20 2020-0 No 2mL C ommon mg mg 5-14 Spirit 00:00: - CHI 00 [facility] Hyalgan 20 Hyalgan 20 2020-0 No 2mL C ommon mg mg 5-14 Spirit 00:00: - CHI [facility] Hyalgan 20 Hyalgan 20 2020-0 No 2mL C ommon mg mg 5-14 Spirit 00:00: - CHI 00 [facility] Hyalgan 20 Hyalgan 20 2020-0 No 2mL C ommon mg mg 02-01 Spirit 00:00: - CHI [facility] Hyalgan 20 Hyalgan 20 2020-0 No 2mL C ommon mg mg 02-01 Spirit 00:00: - CHI [facility] Hyalgan 20 Hyalgan 20 2020-0 No 2mL C ommon mg mg 02-01 Spirit 00:00: - CHI [facility] Hyalgan 20 Hyalgan 20 2020-0 No 2mL C ommon mg mg 02-01 Spirit 00:00: - CHI [facility] Hyalgan 20 Hyalgan 20 2020-0 No 2mL C ommon mg mg 02-01 Spirit 00:00: - CHI [facility] Ibuprofen Ibuprofen 2020-0 Yes Mu 1 PO TUD Common 01-25 [place] PRN Spirit 00:00: - CHI [facility] Hyalgan 20 Hyalgan 20 2020-0 No 2mL C ommon mg mg 01-25 Spirit 00:00: - CHI [facility] Hyalgan 20 Hyalgan 20 2020-0 No 2mL C ommon mg mg 01-25 Spirit 00:00: - CHI [facility] Hyalgan 20 Hyalgan 20 2020-0 No 2mL C ommon mg mg 01-25 Spirit 00:00: - CHI [facility] Hyalgan 20 Hyalgan 20 2020-0 No 2mL C ommon mg mg 01-25 Spirit 00:00: - CHI [facility] Hyalgan 20 Hyalgan 20 2020-0 No 2mL C ommon mg mg 01-25 Spirit 00:00: - CHI [facility] Hyalgan 20 Hyalgan 20 2020-0 No 2mL C ommon mg mg 01-25 Spirit 00:00: - CHI [facility] Hyalgan 20 Hyalgan 20 2020-0 No 2mL C ommon mg mg 01-25 Spirit 00:00: - CHI [facility] Hyalgan 20 Hyalgan 20 2020-0 No 2mL C ommon mg mg 01-25 Spirit 00:00: - CHI [facility] Hyalgan 20 Hyalgan 20 2020-0 No 2mL C ommon mg mg 01-25 Spirit 00:00: - CHI [facility] Hyalgan 20 Hyalgan 20 2020-0 No 2mL C ommon mg mg 01-25 Spirit 00:00: - CHI [facility] Hyalgan 20 Hyalgan 20 2020-0 No 2mL C ommon mg mg 01-25 Spirit 00:00: - CHI [facility] Hyalgan 20 Hyalgan 20 2020-0 No 2mL C ommon mg mg 01-25 Spirit 00:00: - CHI [facility] Hyalgan 20 Hyalgan 20 2020-0 No 20mg C ommon mg mg 01-15 Spirit 00:00: - CHI [facility] Hyalgan 20 Hyalgan 20 2020-0 No 20mg C ommon mg mg 01-15 Spirit 00:00: - CHI [facility] Hyalgan 20 Hyalgan 20 2020-0 No 20mg C ommon mg mg 01-15 Spirit 00:00: - CHI [facility] Hyalgan 20 Hyalgan 20 2020-0 No 20mg C ommon mg mg 01-15 Spirit 00:00: - CHI [facility] Hyalgan 20 Hyalgan 20 2020-0 No 20mg C ommon mg mg 01-15 Spirit 00:00: - CHI [facility] Hyalgan 20 Hyalgan 20 2020-0 No 20mg C ommon mg mg 01-15 Spirit 00:00: - CHI [facility] Hyalgan 20 Hyalgan 20 2020-0 No 20mg C ommon mg mg 01-15 Spirit 00:00: - CHI [facility] Hyalgan 20 Hyalgan 20 2020-0 No 20mg C ommon mg mg 01-15 Spirit 00:00: - CHI [facility] Hyalgan 20 Hyalgan 20 2020-0 No 20mg C ommon mg mg 01-15 Spirit 00:00: - CHI [facility] Hyalgan 20 Hyalgan 20 2020-0 No 20mg C ommon mg mg 01-15 Spirit 00:00: - CHI [facility] Hyalgan 20 Hyalgan 20 2020-0 No 20mg C ommon mg mg 01-15 Spirit 00:00: - CHI [facility] Hyalgan 20 Hyalgan 20 2020-0 No 20mg C ommon mg mg 01-15 Spirit 00:00: - CHI [facility] Kenalog Kenalog 2020-0 No 40mg Common (Triamcinol (Triamcinol 12-20 S pirit one) one) 00:00: - CHI 00 [facility] Bupivicaine Bupivicaine 2020-0 No 4mL Common Harris Harris 4-01 Spirit 00:00: - CHI 00 [facility] Kenalog Kenalog 2020-0 No 40mg Common (Triamcinol (Triamcinol 4-01 S pirit one) one) 00:00: - CHI 00 [facility] Bupivicaine Bupivicaine 2020-0 No 4mL Common Harris Harris 4-01 Spirit 00:00: - CHI 00 [facility] Kenalog Kenalog 2020-0 No 40mg Common (Triamcinol (Triamcinol 4-01 S pirit one) one) 00:00: - CHI 00 [facility] Bupivicaine Bupivicaine 2020-0 No 4mL Common Harris Harris 4-01 Spirit 00:00: - CHI 00 [facility] Kenalog Kenalog 2020-0 No 40mg Common (Triamcinol (Triamcinol 4-01 S pirit one) one) 00:00: - CHI 00 [facility] Bupivicaine Bupivicaine 2020-0 No 4mL Common Harris Harris 4-01 Spirit 00:00: - CHI 00 [facility] Kenalog Kenalog 2020-0 No 40mg Common (Triamcinol (Triamcinol 4-01 S pirit one) one) 00:00: - CHI 00 [facility] Bupivicaine Bupivicaine 2020-0 No 4mL Common Harris Harris 4-01 Spirit 00:00: - CHI 00 [facility] Kenalog Kenalog 2020-0 No 40mg Common (Triamcinol (Triamcinol 4-01 S pirit one) one) 00:00: - CHI 00 [facility] Bupivicaine Bupivicaine 2020-0 No 4mL Common Harris Harris 4-01 Spirit 00:00: - CHI 00 [facility] Kenalog Kenalog 2020-0 No 40mg Common (Triamcinol (Triamcinol 4-01 S pirit one) one) 00:00: - CHI 00 [facility] Bupivicaine Bupivicaine 2020-0 No 4mL Common Harris Harris 4-01 Spirit 00:00: - CHI 00 [facility] Kenalog Kenalog 2020-0 No 40mg Common (Triamcinol (Triamcinol 4-01 S pirit one) one) 00:00: - CHI 00 [facility] Bupivicaine Bupivicaine 2020-0 No 4mL Common Harris Harris 4-01 Spirit 00:00: - CHI 00 [facility] Kenalog Kenalog 2020-0 No 40mg Common (Triamcinol (Triamcinol 4-01 S pirit one) one) 00:00: - CHI 00 [facility] Bupivicaine Bupivicaine 2020-0 No 4mL Common Harris Harris 4- Spirit 00:00: - CHI 00 [facility] Kenalog Kenalog 2020-0 No 40mg Common (Triamcinol (Triamcinol 4-01 S pirit one) one) 00:00: - CHI 00 [facility] Bupivicaine Bupivicaine 2020-0 No 4mL Common Harris Harris 4- Spirit 00:00: - CHI 00 [facility] Kenalog Kenalog 2020-0 No 40mg Common (Triamcinol (Triamcinol 4-01 S pirit one) one) 00:00: - [facility] 00 [facility] Bupivicaine Bupivicaine 2020-0 No 4mL Common Harris Harris 4-01 Spirit 00:00: - [facility] 00 [facility] Kenalog Kenalog 2020-0 No 40mg Common (Triamcinol (Triamcinol 4-01 S pirit one) one) 00:00: - [facility] 00 [facility] Bupivicaine Bupivicaine 2020-0 No 4mL Common Harris Harris 4-01 Spirit 00:00: - [facility] 00 [facility] Dose 2020-0 No Unknown 2-26 00:00: 00 Dose 2020-0 No Unknown 2-26 00:00: 00 Dose 2020-0 No Unknown 2-26 00:00: 00 Dose 2020-0 No Unknown 2-26 00:00: 00 Dose 2020-0 No Unknown 2-26 00:00: 00 Dose 2020-0 No Unknown 2-26 00:00: 00 Dose 2020-0 No Unknown 2-26 00:00: 00 benzonatate 2020-0 Yes [id number] 100mg Take 1 [facility] 100 mg 2-01 capsule by ity of capsule 00:00: mouth 3 (three) Medical times Branch daily as needed for Cough. benzonatate 2020-0 Yes [id number] 100mg Take 1 [facility] 100 mg 2-01 capsule by ity of capsule 00:00: mouth 3 (three) Medical times Branch daily as needed for Cough. benzonatate 2020-0 Yes [id number] 100mg Take 1 [facility] 100 mg 2-01 capsule by ity of capsule 00:00: mouth 3 (three) Medical times Branch daily as needed for Cough. benzonatate 2020-0 Yes [id number] 100mg Take 1 [facility] 100 mg 2-01 capsule by ity of capsule 00:00: mouth 3 (three) Medical times Branch daily as needed for Cough. benzonatate 2020-0 Yes [id number] 100mg Take 1 [facility] 100 mg 2-01 capsule by ity of capsule 00:00: mouth 3 (three) Medical times Branch daily as needed for Cough. benzonatate 2020-0 Yes [id number] 100mg Take 1 [facility] 100 mg 2-01 capsule by ity of capsule 00:00: mouth 3 (three) Medical times Branch daily as needed for Cough. benzonatate 2020-0 Yes [id number] 100mg Take 1 [facility] 100 mg 2-01 capsule by ity of capsule 00:00: mouth 3 (three) Medical times Branch daily as needed for Cough. benzonatate 2020-0 Yes [id number] 100mg Take 1 [facility] 100 mg 2-01 capsule by ity of capsule 00:00: mouth 3 [place] (three) Medical times Branch daily as needed [...] pirit one) one) 00:00: - [facility] 00 [facility] LIDOCAINE LIDOCAINE 2019-1 No 4mL Com mon HCL 10MG/ML HCL 10MG/ML 0-21 S pirit 00:00: - CH[facility] Kenalog Kenalog 2019-1 No 1mL Common (Triamcinol (Triamcinol 0-21 S pirit one) one) 00:00: - [facility] 00 [facility] LIDOCAINE LIDOCAINE 2019-1 No 4mL Com mon HCL 10MG/ML HCL 10MG/ML 0-21 S pirit 00:00: - [facility] 00 [facility] Kenalog Kenalog 2019-1 No 1mL Common (Triamcinol (Triamcinol 0-21 S pirit one) one) 00:00: - [facility] 00 [facility] LIDOCAINE LIDOCAINE 2019-1 No 4mL Com mon HCL 10MG/ML HCL 10MG/ML 0-21 S pirit 00:00: - CHI [facility] Kenalog Kenalog 2019- No 1mL Common (Triamcinol (Triamcinol 0-21 S pirit one) one) 00:00: - [facility] 00 [facility] LIDOCAINE LIDOCAINE 2019-1 No 4mL Com mon HCL 10MG/ML HCL 10MG/ML 0-21 S pirit 00:00: - [facility] 00 [facility] Kenalog Kenalog 2019-1 No 1mL Common (Triamcinol (Triamcinol 0-21 S pirit one) one) 00:00: - [facility] 00 [facility] LIDOCAINE LIDOCAINE 2019-1 No 4mL Com mon HCL 10MG/ML HCL 10MG/ML 0-21 S pirit 00:00: - [facility] 00 [facility] Kenalog Kenalog 2019-1 No 1mL Common (Triamcinol (Triamcinol 0-21 S pirit one) one) 00:00: - [facility] 00 [facility] LIDOCAINE LIDOCAINE 2019-1 No 4mL Com mon HCL 10MG/ML HCL 10MG/ML 0-21 S pirit 00:00: - [facility] 00 [facility] Kenalog Kenalog 2019-1 No 1mL Common (Triamcinol (Triamcinol 0-21 S pirit one) one) 00:00: - [facility] 00 [facility] LIDOCAINE LIDOCAINE 2019-1 No 4mL Com mon HCL 10MG/ML HCL 10MG/ML 0-21 S pirit 00:00: - [facility] 00 [facility] Kenalog Kenalog 2019-1 No 1mL Common (Triamcinol (Triamcinol 0-21 S pirit one) one) 00:00: - [facility] 00 [facility] LIDOCAINE LIDOCAINE 2019-1 No 4mL Com mon HCL 10MG/ML HCL 10MG/ML 0-21 S pirit 00:00: - [facility] 00 [facility] Kenalog Kenalog 2019-1 No 1mL Common (Triamcinol (Triamcinol 0-21 S pirit one) one) 00:00: - [facility] 00 [facility] LIDOCAINE LIDOCAINE 2019-1 No 4mL Com mon HCL 10MG/ML HCL 10MG/ML 0-21 S pirit 00:00: - [facility] 00 [facility] Kenalog Kenalog 2019-1 No 1mL Common (Triamcinol (Triamcinol 0-21 S pirit one) one) 00:00: - [facility] 00 [facility] LIDOCAINE LIDOCAINE 2019-1 No 4mL Com mon HCL 10MG/ML HCL 10MG/ML 0-21 S pirit 00:00: - [facility] 00 [facility] Kenalog Kenalog 2019-1 No 1mL Common (Triamcinol (Triamcinol 0-21 S pirit one) one) 00:00: - [facility] 00 [facility] LIDOCAINE LIDOCAINE 2019-1 No 4mL Com mon HCL 10MG/ML HCL 10MG/ML 0-21 S pirit 00:00: - [facility] 00 [facility] Kenalog Kenalog 2019-1 No 1mL Common (Triamcinol (Triamcinol 0-21 S pirit one) one) 00:00: - [facility] 00 [facility] LIDOCAINE LIDOCAINE 2019-1 No 4mL Com mon HCL 10MG/ML HCL 10MG/ML 0-21 S pirit 00:00: - [facility] 00 [facility] lisinopril 2019-0 No 1mg 40 mg 8-14 [...] mg 7-16 Spirit 00:00: - [facility] 00 [facility] Hyalgan 20 Hyalgan 20 2019-0 No 20mg C ommon mg mg 7-16 Spirit 00:00: - [facility] 00 [facility] Hyalgan 20 Hyalgan 20 2019-0 No 20mg C ommon mg mg 7-16 Spirit 00:00: - [facility] 00 [facility] Hyalgan 20 Hyalgan 20 2019-0 No 20mg C ommon mg mg 7-16 Spirit 00:00: - [facility] Hyalgan 20 Hyalgan 20 2019-0 No 20mg C ommon mg mg 7-16 Spirit 00:00: - [facility] Hyalgan 20 Hyalgan 20 2019-0 No 20mg C ommon mg mg 7-16 Spirit 00:00: - [facility] 00 [facility] Hyalgan 20 Hyalgan 20 2019-0 No 20mg C ommon mg mg 7-16 Spirit 00:00: - [facility] 00 [facility] Hyalgan 20 Hyalgan 20 2019-0 No 20mg C ommon mg mg 7-16 Spirit 00:00: - [facility] Hyalgan 20 Hyalgan 20 2019-0 No 20mg C ommon mg mg 7-16 Spirit 00:00: - [facility] 00 [facility] Hyalgan 20 Hyalgan 20 2019-0 No 20mg C ommon mg mg 04-05 Spirit 00:00: - [facility] Hyalgan 20 Hyalgan 20 2019-0 No 20mg C ommon mg mg 04-05 Spirit 00:00: - [facility] Hyalgan 20 Hyalgan 20 2019-0 No 20mg C ommon mg mg 04-05 Spirit 00:00: - [facility] Hyalgan 20 Hyalgan 20 2019-0 No 20mg C ommon mg mg 03-29 Spirit 00:00: - [facility] Hyalgan 20 Hyalgan 20 2019-0 No 20mg C ommon mg mg 03-29 Spirit 00:00: - [facility] Hyalgan 20 Hyalgan 20 2019-0 No 20mg C ommon mg mg 03-29 Spirit 00:00: - [facility] Hyalgan 20 Hyalgan 20 2019-0 No 20mg C ommon mg mg 03-29 Spirit 00:00: - [facility] Hyalgan 20 Hyalgan 20 2019-0 No 20mg C ommon mg mg 03-29 Spirit 00:00: - [facility] Hyalgan 20 Hyalgan 20 2019-0 No 20mg C ommon mg mg 03-29 Spirit 00:00: - [facility] Hyalgan 20 Hyalgan 20 2019-0 No 20mg C ommon mg mg 03-29 Spirit 00:00: - [facility] Hyalgan 20 Hyalgan 20 2019-0 No 20mg C ommon mg mg 03-29 Spirit 00:00: - [facility] Hyalgan 20 Hyalgan 20 2019-0 No 20mg C ommon mg mg 03-29 Spirit 00:00: - [facility] Hyalgan 20 Hyalgan 20 2019-0 No 20mg C ommon mg mg 03-29 Spirit 00:00: - [facility] Hyalgan 20 Hyalgan 20 2019-0 No 20mg C ommon mg mg 03-29 Spirit 00:00: - [facility] Hyalgan 20 Hyalgan 20 2019-0 No 20mg C ommon mg mg 03-29 Spirit 00:00: - [facility] LIDOCAINE LIDOCAINE 2019-0 No 10mg Com mon HCL 10MG/ML HCL 10MG/ML 7-02 S pirit 00:00: - CH[facility] Hyalgan 20 Hyalgan 20 2019-0 No 20mg C ommon mg mg 7 Spirit 00:00: - [facility] Kenalog Kenalog 2019-0 No 40mg Common (Triamcinol (Triamcinol 7-02 S pirit one) one) 00:00: - [facility] LIDOCAINE LIDOCAINE 2019-0 No 10mg Com mon HCL 10MG/ML HCL 10MG/ML 7- S pirit 00:00: - CH[facility] Hyalgan 20 Hyalgan 20 2019-0 No 20mg C ommon mg mg 03-22 Spirit 00:00: - [facility] Kenalog Kenalog 2019-0 No 40mg Common (Triamcinol (Triamcinol 7-02 S pirit one) one) 00:00: - [facility] LIDOCAINE LIDOCAINE 2019-0 No 10mg Com mon HCL 10MG/ML HCL 10MG/ML 7-02 S pirit 00:00: - CH[facility] Hyalgan 20 Hyalgan 20 2019-0 No 20mg C ommon mg mg 7 Spirit 00:00: - [facility] Kenalog Kenalog 2019-0 No 40mg Common (Triamcinol (Triamcinol 7-02 S pirit one) one) 00:00: - [facility] LIDOCAINE LIDOCAINE 2019-0 No 10mg Com mon HCL 10MG/ML HCL 10MG/ML 7- S pirit 00:00: - CH[facility] Hyalgan 20 Hyalgan 20 2019-0 No 20mg C ommon mg mg 7 Spirit 00:00: - [facility] Kenalog Kenalog 2019-0 No 40mg Common (Triamcinol (Triamcinol 7-02 S pirit one) one) 00:00: - [facility] LIDOCAINE LIDOCAINE 2019-0 No 10mg Com mon HCL 10MG/ML HCL 10MG/ML 7-02 S pirit 00:00: - [facility] Hyalgan 20 Hyalgan 20 2019-0 No 20mg C ommon mg mg 7- Spirit 00:00: - [facility] Kenalog Kenalog 2019-0 No 40mg Common (Triamcinol (Triamcinol 7-02 S pirit one) one) 00:00: - [facility] LIDOCAINE LIDOCAINE 2019-0 No 10mg Com mon HCL 10MG/ML HCL 10MG/ML 7-02 S pirit 00:00: - CH[facility] Hyalgan 20 Hyalgan 20 2019-0 No 20mg C ommon mg mg 7 Spirit 00:00: - [facility] 00 [facility] Kenalog Kenalog 2019-0 No 40mg Common (Triamcinol (Triamcinol 7-02 S pirit one) one) 00:00: - [facility] 00 [facility] LIDOCAINE LIDOCAINE 2019-0 No 10mg Com mon HCL 10MG/ML HCL 10MG/ML 7-02 S pirit 00:00: - CH[facility] Hyalgan 20 Hyalgan 20 2019-0 No 20mg C ommon mg mg 7 Spirit 00:00: - [facility] Kenalog Kenalog 2019-0 No 40mg Common (Triamcinol (Triamcinol 7-02 S pirit one) one) 00:00: - [facility] 00 [facility] LIDOCAINE LIDOCAINE 2019-0 No 10mg Com mon HCL 10MG/ML HCL 10MG/ML 7-02 S pirit 00:00: - CH[facility] Hyalgan 20 Hyalgan 20 2019-0 No 20mg C ommon mg mg 03-22 Spirit 00:00: - [facility] Kenalog Kenalog 2019-0 No 40mg Common (Triamcinol (Triamcinol 7-02 S pirit one) one) 00:00: - [facility] 00 [facility] LIDOCAINE LIDOCAINE 2019-0 No 10mg Com mon HCL 10MG/ML HCL 10MG/ML 7-02 S pirit 00:00: - CH[facility] Hyalgan 20 Hyalgan 20 2019-0 No 20mg C ommon mg mg 702 Spirit 00:00: - [facility] Kenalog Kenalog 2019-0 No 40mg Common (Triamcinol (Triamcinol 7-02 S pirit one) one) 00:00: - [facility] 00 [facility] LIDOCAINE LIDOCAINE 2019-0 No 10mg Com mon HCL 10MG/ML HCL 10MG/ML 7-02 S pirit 00:00: - [facility] 00 [facility] Hyalgan 20 Hyalgan 20 2019-0 No 20mg C ommon mg mg 7- Spirit 00:00: - [facility] Kenalog Kenalog 2019-0 No 40mg Common (Triamcinol (Triamcinol 7-02 S pirit one) one) 00:00: - [facility] 00 [facility] LIDOCAINE LIDOCAINE 2019-0 No 10mg Com mon HCL 10MG/ML HCL 10MG/ML 7-02 S pirit 00:00: - CH[facility] Hyalgan 20 Hyalgan 20 2019-0 No 20mg C ommon mg mg 7 Spirit 00:00: - [facility] Kenalog Kenalog 2019-0 No 40mg Common (Triamcinol (Triamcinol 7-02 S pirit one) one) 00:00: - [facility] LIDOCAINE LIDOCAINE 2019-0 No 10mg Com mon HCL 10MG/ML HCL 10MG/ML 7- S pirit 00:00: - CH[facility] Hyalgan 20 Hyalgan 20 2019-0 No 20mg C ommon mg mg 7 Spirit 00:00: - [facility] Kenalog Kenalog 2019-0 No 40mg Common (Triamcinol (Triamcinol 7-02 S pirit one) one) 00:00: - CH[facility] fluticasone 2019-0 No 2mcg/ac propionate 5- tuation [...] mL mg-10 mg/5 00:00: mL syrup 00 predniSONE predniSONE No predniSONE Losartan Losartan No [...] Besylate Besylate [place] Auth: Rx Spi rit Ref#:[id number] - CHI 8) [facility] HydrOXYzine HydrOXYzine Yes Mu not Common HCl HCl [place] defined Spirit - [facility] Gabapentin Gabapentin Yes Mu not Common [place] defined Spirit - [facility] Clarithromy Clarithromy Yes Mu not Common justina justina [place] defined [facility] Amoxicillin Amoxicillin Yes Mu not Common [place] defined [facility] MethylPREDN MethylPREDN Yes Mu not Common ISolone ISolone [place] defined [facility] Flucelvax Flucelvax Yes Mu not Co mmon Quadrivalen Quadrivalen [place] defined [facility] t t [facility] Omeprazole Omeprazole Yes Mu not Common [place] defined [facility] Cephalexin Cephalexin Yes Mu not Common [place] defined [facility] Losartan Losartan Yes Mu TAKE 1 Co mmon Potassium Potassium [place] TABLET BY Spirit MOUTH - CHI EVERY DAY [facility] Meloxicam Meloxicam Yes Mu not Co mmon [place] defined [facility] Diclofenac Diclofenac Yes Mu TAKE 1 Common Sodium Sodium [place] TABLET BY Spirit MOUTH - CHI TWICE A [facility] Sulfamethox Sulfamethox Yes Mu TAKE 1 Common azole-Trime azole-Trime [place] TABLET BY Spirit thoprim thoprim MOUTH - [facility]I EVERY [address] St HOURS FOR [address] Mupirocin Mupirocin Yes Mu APPLY TO Common [place] AFFECTED Spirit AREA TWICE - CHI A DAY FOR [address] Promethazin Promethazin No e-DM e-DM Metformin [...] n in Benzonatate Benzonatate No Benzonatat e Immunizations Ordered Filled Immunization Date Status Comments [facility] e Immunization Name Name Influenza Virus [...] dose mcg/0.5 mL dose (Moderna) (Moderna) Bupivicaine Harris Bupivicaine Harris 2020-06-12 Completed Common Spirit - 15:06:00 [facility] Kenalog Kenalog 2020-06-12 Completed Common Spirit - (Triamcinolone) (Triamcinolone) 15:06:00 [facility] Bupivicaine Harris Bupivicaine Harris 2020-06-12 Completed Common Spirit - 15:06:00 [facility] Kenalog Kenalog 2020-06-12 Completed Common Spirit - (Triamcinolone) (Triamcinolone) 15:06:00 [facility] Bupivicaine Harris Bupivicaine Harris 2020-06-12 Completed Common Spirit - 15:06:00 [facility] Kenalog Kenalog 2020-06-12 Completed Common Spirit - (Triamcinolone) (Triamcinolone) 15:06:00 [facility] Bupivicaine Harris Bupivicaine Harris 2020-06-12 Completed Common Spirit - 15:06:00 [facility] Kenalog Kenalog 2020-06-12 Completed Common [facility] - (Triamcinolone) (Triamcinolone) 15:06:00 [facility] Bupivicaine Harris Bupivicaine Harris 2020-06-12 Completed Common Spirit - 15:06:00 [facility] Kenalog Kenalog 2020-06-12 Completed Common [facility] - (Triamcinolone) (Triamcinolone) 15:06:00 [facility] Bupivicaine Harris Bupivicaine Harris 2020-06-12 Completed Common Spirit - 15:06:00 [facility] Kenalog Kenalog 2020-06-12 Completed Common Spirit - (Triamcinolone) (Triamcinolone) 15:06:00 [facility] Bupivicaine Harris Bupivicaine Harris 2020-06-12 Completed Common Spirit - 15:06:00 [facility] Kenalog Kenalog 2020-06-12 Completed Common Spirit - (Triamcinolone) (Triamcinolone) 15:06:00 [facility] Bupivicaine Harris Bupivicaine Harris 2020-06-12 Completed Common Spirit - 15:06:00 [facility] Kenalog Kenalog 2020-06-12 Completed Common Spirit - (Triamcinolone) (Triamcinolone) 15:06:00 [facility] Hyalgan 20 mg Hyalgan 20 mg 2020-02-02 Completed Common S pirit - 13:53:00 [facility] [place] 20 mg Hyalgan 20 mg 2020-02-02 Completed Common S pirit - 13:53:00 [facility] [place] 20 mg Hyalgan 20 mg 2020-02-02 Completed Common S pirit - 13:53:00 [facility] [place] 20 mg Hyalgan 20 mg 2020-02-02 Completed Common S pirit - 13:53:00 [facility] [place] 20 mg Hyalgan 20 mg 2020-02-02 Completed Common S pirit - 13:53:00 [facility] [place] 20 mg Hyalgan 20 mg 2020-02-02 Completed Common S pirit - 13:53:00 [facility] [place] 20 mg Hyalgan 20 mg 2020-02-02 Completed Common S pirit - 13:53:00 [facility] [place] 20 mg Hyalgan 20 mg 2020-02-02 Completed Common S pirit - 13:53:00 [facility] [place] 20 mg Hyalgan 20 mg 2020-01-26 Completed Common S pirit - 15:28:00 [facility] [place] 20 mg Hyalgan 20 mg 2020-01-26 Completed Common S pirit - 15:28:00 [facility] [place] 20 mg Hyalgan 20 mg 2020-01-26 Completed Common S pirit - 15:28:00 [facility] [place] 20 mg Hyalgan 20 mg 2020-01-26 Completed Common S pirit - 15:28:00 [facility] [place] 20 mg Hyalgan 20 mg 2020-01-26 Completed Common S pirit - 15:28:00 [facility] [place] 20 mg Hyalgan 20 mg 2020-01-26 Completed Common S pirit - 15:28:00 [facility] [place] 20 mg Hyalgan 20 mg 2020-01-26 Completed Common S pirit - 15:28:00 [facility] [place] 20 mg Hyalgan 20 mg 2020-01-26 Completed Common S pirit - 15:28:00 [facility] [place] 20 mg Hyalgan 20 mg 2020-01-16 Completed Common S pirit - 15:56:00 [facility] [place] 20 mg Hyalgan 20 mg 2020-01-16 Completed Common S pirit - 15:56:00 [facility] [place] 20 mg Hyalgan 20 mg 2020-01-16 Completed Common S pirit - 15:56:00 [facility] [place] 20 mg Hyalgan 20 mg 2020-01-16 Completed Common S pirit - 15:56:00 [facility] [place] 20 mg Hyalgan 20 mg 2020-01-16 Completed Common S pirit - 15:56:00 [facility] [place] 20 mg Hyalgan 20 mg 2020-01-16 Completed Common S pirit - 15:56:00 [facility] [place] 20 mg Hyalgan 20 mg 2020-01-16 Completed Common S pirit - 15:56:00 [facility] [place] 20 mg Hyalgan 20 mg 2020-01-16 Completed Common S pirit - 15:56:00 [facility] Bupivicaine Harris Bupivicaine Harris 2019-12-21 Completed Common Spirit - 13:51:00 [facility] Bupivicaine Harris Bupivicaine Harris 2019-12-21 Completed Common [facility] - 13:51:00 [facility] Bupivicaine Harris Bupivicaine Harris 2019-12-21 Completed Common [facility] - 13:51:00 [facility] Bupivicaine Harris Bupivicaine Harris 2019-12-21 Completed Common Spirit - 13:51:00 [facility] Bupivicaine Harris Bupivicaine Harris 2019-12-21 Completed Common Spirit - 13:51:00 [facility] Bupivicaine Harris Bupivicaine Harris 2019-12-21 Completed Common Spirit - 13:51:00 [facility] Bupivicaine Harris Bupivicaine Harris 2019-12-21 Completed Common [facility] - 13:51:00 [facility] Bupivicaine Harris Bupivicaine Harris 2019-12-21 Completed Common [facility] - 13:51:00 [facility] Ken[place]og Kenalog 2019-12-21 Completed Common [facility] - (Triamcinolone) (Triamcinolone) 13:50:00 [facility] Ken[facility] Kenalog 2019-12-21 Completed Common [facility] - (Triamcinolone) (Triamcinolone) 13:50:00 [facility] Ken[facility] Kenalog 2019-12-21 Completed Common [facility] - (Triamcinolone) (Triamcinolone) 13:50:00 [facility] Kenal[facility] Kenalog 2019-12-21 Completed Common [facility] - (Triamcinolone) (Triamcinolone) 13:50:00 [facility] Kenalog Kenalog 2019-12-21 Completed Common [facility] - (Triamcinolone) (Triamcinolone) 13:50:00 [facility] Kenal[facility] Kenalog 2019-12-21 Completed Common [facility] - (Triamcinolone) (Triamcinolone) 13:50:00 [facility] Ken[facility] Kenalog 2019-12-21 Completed Common [facility] - (Triamcinolone) (Triamcinolone) 13:50:00 [facility] Alex Johnson 2019-12-21 Completed Common [facility] - (Triamcinolone) (Triamcinolone) 13:50:00 [facility] Alex Johnson 2019-07-11 Completed [facility] - (Triamcinolone) (Triamcinolone) 15:14:00 [facility] Alex Johnson 2019-07-11 Completed [facility] - (Triamcinolone) (Triamcinolone) 15:14:00 [facility] Alex Johnson 2019-07-11 Completed [facility] - (Triamcinolone) (Triamcinolone) 15:14:00 [facility] Alex Johnson 2019-07-11 Completed [facility] - (Triamcinolone) (Triamcinolone) 15:14:00 [facility] Alex Johnson 2019-07-11 Completed [facility] - (Triamcinolone) (Triamcinolone) 15:14:00 [facility] Alex Johnson 2019-07-11 Completed [facility] - (Triamcinolone) (Triamcinolone) 15:14:00 [facility] Alex Johnson 2019-07-11 Completed [facility] - (Triamcinolone) (Triamcinolone) 15:14:00 [facility] Alex Johnson 2019-07-11 Completed [facility] - (Triamcinolone) (Triamcinolone) 15:14:00 [facility] LIDOCAINE HCL LIDOCAINE HCL 2019-07-11 Completed Common S pirit - 10MG/ML 10MG/ML 15:12:00 [facility] LIDOCAINE HCL LIDOCAINE HCL 2019-07-11 Completed Common S pirit - 10MG/ML 10MG/ML 15:12:00 [facility] LIDOCAINE HCL LIDOCAINE HCL 2019-07-11 Completed Common S pirit - 10MG/ML 10MG/ML 15:12:00 [facility] LIDOCAINE HCL LIDOCAINE HCL 2019-07-11 Completed Common S pirit - 10MG/ML 10MG/ML 15:12:00 [facility] LIDOCAINE HCL LIDOCAINE HCL 2019-07-11 Completed Common S pirit - 10MG/ML 10MG/ML 15:12:00 [facility] LIDOCAINE HCL LIDOCAINE HCL 2019-07-11 Completed Common S pirit - 10MG/ML 10MG/ML 15:12:00 [facility] LIDOCAINE HCL LIDOCAINE HCL 2019-07-11 Completed Common S pirit - 10MG/ML 10MG/ML 15:12:00 [facility] LIDOCAINE HCL LIDOCAINE HCL 2019-07-11 Completed Common S pirit - 10MG/ML 10MG/ML 15:12:00 [facility] [place] 20 mg Hyalgan 20 mg 2019-04-05 Completed Common S pirit - 10:54:00 [facility] [place] 20 mg Hyalgan 20 mg 2019-04-05 Completed Common S pirit - 10:54:00 [facility] [place] 20 mg Hyalgan 20 mg 2019-04-05 Completed [facility] - 10[facility]54:00 [facility] Hyalgan 20 mg Hyalgan 20 mg 2019-04-05 Completed [facility] - 10:54:00 [facility] Hyalgan 20 mg Hyalgan 20 mg 2019-04-05 Completed [facility] - 10:54:00 [facility] Hyalgan 20 mg Hyalgan 20 mg 2019-04-05 Completed [facility] - 10:54:00 [facility] Hyalgan 20 mg Hyalgan 20 mg 2019-04-05 Completed [facility] - 10:54:00 [facility] Hyalgan 20 mg Hyalgan 20 mg 2019-04-05 Completed [facility] - 10:54:00 [facility] Hyalgan 20 mg Hyalgan 20 mg 2019-03-29 Completed [facility] - 10:53:00 [facility] Hyalgan 20 mg Hyalgan 20 mg 2019-03-29 Completed [facility] - 10:53:00 [facility] Hyalgan 20 mg Hyalgan 20 mg 2019-03-29 Completed [facility] - 10:53:00 [facility] Hyalgan 20 mg Hyalgan 20 mg 2019-03-29 Completed [facility] - 10:53:00 [facility] Hyalgan 20 mg Hyalgan 20 mg 2019-03-29 Completed [facility] - 10:53:00 [facility] Hyalgan 20 mg Hyalgan 20 mg 2019-03-29 Completed [facility] - 10:53:00 [facility] Hyalgan 20 mg Hyalgan 20 mg 2019-03-29 Completed [facility] - 10:53:00 [facility] Hyalgan 20 mg Hyalgan 20 mg 2019-03-29 Completed [facility] 10:53:00 [facility] Alex Johnson 2019-03-22 Completed [facility] (Triamcinolone) (Triamcinolone) 11:02:00 [facility] Alex Johnson 2019-03-22 Completed [facility] (Triamcinolone) (Triamcinolone) 11:02:00 [facility] Alex Johnson 2019-03-22 Completed [facility] (Triamcinolone) (Triamcinolone) 11:02:00 [facility] Alex Johnson 2019-03-22 Completed [facility] (Triamcinolone) (Triamcinolone) 11:02:00 [facility] Alex Johnson 2019-03-22 Completed [facility] (Triamcinolone) (Triamcinolone) 11:02:00 [facility] Alex Johnson 2019-03-22 Completed [facility] (Triamcinolone) (Triamcinolone) 11:02:00 [facility] Alex Johnson 2019-03-22 Completed [facility] (Triamcinolone) (Triamcinolone) 11:02:00 [facility] Alex Johnson 2019-03-22 Completed [facility] (Triamcinolone) (Triamcinolone) 11:02:00 [facility] LIDOCAINE HCL LIDOCAINE HCL 2019-03-22 Completed [facility] - 10MG/ML 10MG/ML 11:01:00 [facility] LIDOCAINE HCL LIDOCAINE HCL 2019-03-22 Completed [facility] - 10MG/ML 10MG/ML 11:01:00 [facility] LIDOCAINE HCL LIDOCAINE HCL 2019-03-22 Completed [facility] - 10MG/ML 10MG/ML 11:01:00 [facility] LIDOCAINE HCL LIDOCAINE HCL 2019-03-22 Completed [facility] - 10MG/ML 10MG/ML 11:01:00 [facility] LIDOCAINE HCL LIDOCAINE HCL 2019-03-22 Completed [facility] - 10MG/ML 10MG/ML 11:01:00 [facility] LIDOCAINE HCL LIDOCAINE HCL 2019-03-22 Completed [facility] - 10MG/ML 10MG/ML 11:01:00 [facility] LIDOCAINE HCL LIDOCAINE HCL 2019-03-22 Completed [facility] - 10MG/ML 10MG/ML 11:01:00 [facility] LIDOCAINE HCL LIDOCAINE HCL 2019-03-22 Completed [facility] - 10MG/ML 10MG/ML 11:01:00 [facility] Hyalgan 20 mg Hyalgan 20 mg 2019-03-22 Completed [facility] - 10:58:00 [facility] Hyalgan 20 mg Hyalgan 20 mg 2019-03-22 Completed [facility] - 10:58:00 [facility] Hyalgan 20 mg Hyalgan 20 mg 2019-03-22 Completed [facility] - 10:58:00 [facility] Hyalgan 20 mg Hyalgan 20 mg 2019-03-22 Completed [facility] - 10:58:00 [facility] Hyalgan 20 mg Hyalgan 20 mg 2019-03-22 Completed [facility] - 10:58:00 [facility] Hyalgan 20 mg Hyalgan 20 mg 2019-03-22 Completed [facility] - 10:58:00 [facility] Hyalgan 20 mg Hyalgan 20 mg 2019-03-22 Completed [facility] - 10:58:00 [facility] Hyalgan 20 mg Hyalgan 20 mg 2019-03-22 Completed [facility] - 10:58:00 [facility] Vital Signs Vital Name Observation Time Observation Value Comments Source Systolic blood 2022-07-30 19:50:00 134 mm[Hg] [facility] Diastolic blood 2022-07-30 19:50:00 83 mm[Hg] [facility] Heart rate 2022-07-30 19:50:00 77 [facility] Body temperature 2022-07-30 19:50:00 36.5 [facility] [place] [facility] Respiratory rate 2022-07-30 19:50:00 17 /min [facility] height 2022-07-30 19:50:00 144.8 cm [facility] Body weight 2022-07-30 19:50:00 108.909 kg [facility] BMI 2022-07-30 19:50:00 51.96 kg/m2 [facility] Oxygen saturation in 2022-07-30 19:50:00 91 /min [facility] Arterial blood by [facility] Pulse oximetry Branch height 2022-04-14 13:45:00 60 [in_i] [facility] weight 2022-04-14 13:45:00 220 [lb_av] [facility] bmi 2022-04-14 13:45:00 42.96 kg/m2 [facility] blood pressure 2022-04-14 13:45:00 145 mm[Hg] [facility] systolic [facility] blood pressure 2022-04-14 13:45:00 84 mm[Hg] [facility] diastolic [facility] height 2021-12-24 14:30:00 60 [in_i] [facility] weight 2021-12-24 14:30:00 221 [lb_av] [facility] temperature 2021-12-24 14:30:00 98.2 [degF] [facility] bmi 2021-12-24 14:30:00 43.16 kg/m2 [facility] blood pressure 2021-12-24 14:30:00 130 mm[Hg] [facility] blood pressure 2021-12-24 14:30:00 84 mm[Hg] [facility] diastolic [facility] height 2021-10-22 13:45:00 60 [in_i] [facility] weight 2021-10-22 13:45:00 225 [lb_av] [facility] temperature 2021-10-22 13:45:00 97.8 [degF] [facility] bmi 2021-10-22 13:45:00 43.94 kg/m2 [facility] blood pressure 2021-10-22 13:45:00 136 mm[Hg] [facility] systolic [facility] blood pressure 2021-10-22 13:45:00 84 mm[Hg] [facility] diastolic [facility] height 2021-10-01 15:30:00 60 [in_i] [facility] weight 2021-10-01 15:30:00 225 [lb_av] [facility] 2021-10-01 15:30:00 43.94 kg/m2 [facility] blood pressure 2021-10-01 15:30:00 140 mm[Hg] [facility] systolic [facility] blood pressure 2021-10-01 15:30:00 79 mm[Hg] [facility] diastolic [facility] height 2021-08-26 15:45:00 60 [in_i] [facility] weight 2021-08-26 15:45:00 225 [lb_av] [facility] temperature 2021-08-26 15:45:00 98.4 [degF] [facility] bmi 2021-08-26 15:45:00 43.94 kg/m2 [facility] blood pressure 2021-08-26 15:45:00 146 mm[Hg] [facility] systolic [facility] blood pressure 2021-08-26 15:45:00 82 mm[Hg] [facility] diastolic [facility] height 2021-08-01 10:30:00 60 [in_i] [facility] weight 2021-08-01 10:30:00 225 [lb_av] [facility] bmi 2021-08-01 10:30:00 43.94 kg/m2 [facility] blood pressure 2021-08-01 10:30:00 142 mm[Hg] [facility] systolic [facility] blood pressure 2021-08-01 10:30:00 72 mm[Hg] [facility] diastolic [facility] height 2021-07-25 11:00:00 60 [in_i] [facility] weight 2021-07-25 11:00:00 225 [lb_av] [facility] temperature 2021-07-25 11:00:00 97.3 [degF] [facility] bmi 2021-07-25 11:00:00 43.94 kg/m2 [facility] blood pressure 2021-07-25 11:00:00 140 mm[Hg] [facility] systolic [facility] blood pressure 2021-07-25 11:00:00 92 mm[Hg] [facility] diastolic [facility] height 2021-05-09 16:12:00 60 [in_i] [facility] weight 2021-05-09 16:12:00 220 [lb_av] [facility] bmi 2021-05-09 16:12:00 42.96 kg/m2 [facility] BP Systolic 2022-09-03 17:16:00 BP Diastolic 2022-09-03 [...] XR, knee, 3 view 2022-10-09 00:00:00 [facility] FLU 2022-07-30 20:03:02 [facility] [place] VACC(),65+YR, Medical [facility] 0.5 ML,IM,ADJUVANTED,QUAD( FLUAD) ASSIGNMENT OF BENEFITS 2022-07-30 19:33:55 Doctor Unassigned, No [facility] Name Medical Branch REFERRAL- 2022-07-03 05:01:00 Doctor Unassigned, No [facility] REQUEST/RESPONSE Name Medical Branch Plan of Care Planned Activity Planned Date Details Comments Source Goal Plan of Care Note [code = 35825-5] Goal Plan of Care Note [code = 06514-2] Goal Plan of Care Note [code = 59402-8] Goal Plan of Care Note [code = 01053-3] Goal Plan of Care Note [code = 42426-2] Goal Plan of Care Note [code = 21568-5] Goal Plan of Care Note [code = 29711-0] Goal Plan of Care Note [code = 78276-4] Goal Plan of Care Note [code = 03875-6] Goal Plan of Care Note [code = 79594-3] Goal Plan of Care Note [code = 32778-2] Goal Plan of Care Note [code = 72946-9] Goal Plan of Care Note [code = 19114-7] Goal Plan of Care Note [code = 39266-5] Goal Plan of Care Note [code = 41565-3] Goal Plan of Care Note [code = 04397-7] Goal Plan of Care Note [code = 12875-7] Goal Plan of Care Note [code = 07779-6] Goal Plan of Care Note [code = 12956-9] Goal Plan of Care Note [code = 54072-7] Goal Plan of Care Note [code = 34061-4] Goal Plan of Care Note [code = 10269-7] Goal Plan of Care Note [code = 62418-2] Goal Plan of Care Note [code = 43850-4] Goal Plan of Care Note [code = 38631-5] Goal Plan of Care Note [code = 59583-0] Goal Plan of Care Note [code = 60557-5] Goal Plan of Care Note [code = 11940-5] Goal Plan of Care Note [code = 04230-4] Goal Plan of Care Note [code = 03771-9] Goal Plan of Care Note [code = 28152-4] Goal Plan of Care Note [code = 09756-8] Goal Plan of Care Note [code = 95955-7] Goal Plan of Care Note [code = 25557-9] Goal Plan of Care Note [code = 62326-2] Goal Plan of Care Note [code = 25208-4] Goal Plan of Care Note [code = 73842-4] Goal Plan of Care Note [code = 69789-4] Goal Plan of Care Note [code = 81004-8] Goal Plan of Care Note [code = 04901-8] Goal Plan of Care Note [code = 89996-0] Goal Plan of Care Note [code = 57881-5] Goal Plan of Care Note [code = 79230-6] Goal Plan of Care Note [code = 00923-3] Goal Plan of Care Note [code = 63406-2] Goal Plan of Care Note [code = 38032-4] Goal Plan of Care Note [code = 75467-8] Goal Plan of Care Note [code = 01109-0] Goal Plan of Care Note [code = 09784-9] Goal Plan of Care Note [code = 50813-6] Goal Plan of Care Note [code = 82261-3] Goal Plan of Care Note [code = 09728-1] Goal Plan of Care Note [code = 70844-1] Goal Plan of Care Note [code = 88970-8] Goal Plan of Care Note [code = 10670-2] Goal Plan of Care Note [code = 57640-1] Goal Plan of Care Note [code = 72664-9] Goal Plan of Care Note [code = 65510-3] Goal Plan of Care Note [code = 76709-1] Goal Plan of Care Note [code = 55228-6] Goal Plan of Care Note [code = 29565-4] Goal Plan of Care Note [code = 09462-9] Goal Plan of Care Note [code = 67472-6] Goal Plan of Care Note [code = 92960-3] Goal Plan of Care Note [code = 92389-1] Goal Plan of Care Note [code = 10387-3] Goal Plan of Care Note [code = 51092-2] Goal Plan of Care Note [code = 90109-3] Goal Plan of Care Note [code = 17572-2] Goal Plan of Care Note [code = 55814-3] Goal Plan of Care Note [code = 73663-7] Goal Plan of Care Note [code = 10326-3] Goal Plan of Care Note [code = 66996-1] Goal Plan of Care Note [code = 21120-6] Goal Plan of Care Note [code = 27991-8] Goal Plan of Care Note [code = 33597-4] Goal Plan of Care Note [code = 08490-1] Goal Plan of Care Note [code = 66271-8] Goal Plan of Care Note [code = 09761-2] Goal Plan of Care Note [code = 91151-4] Goal Plan of Care Note [code = 50555-5] Goal Plan of Care Note [code = 49567-0] Goal Plan of Care Note [code = 92747-1] Goal Plan of Care Note [code = 96122-8] Goal Plan of Care Note [code = 55915-8] Goal Plan of Care Note [code = 74713-5] Goal Plan of Care Note [code = 02893-6] Goal Plan of Care Note [code = 44372-1] Goal Plan of Care Note [code = 12492-3] Goal Plan of Care Note [code = 83301-4] Goal Plan of Care Note [code = 01852-6] Goal Plan of Care Note [code = 45840-1] Goal Plan of Care Note [code = 22963-7] Goal Plan of Care Note [code = 81868-5] Goal Plan of Care Note [code = 63779-7] Goal Plan of Care Note [code = 97406-2] Goal Plan of Care Note [code = 60467-5] Goal Plan of Care Note [code = 90826-7] Goal Plan of Care Note [code = 20734-7] Goal Plan of Care Note [code = 31721-7] Goal Plan of Care Note [code = 78145-3] Goal Plan of Care Note [code = 68467-1] Goal Plan of Care Note [code = 66505-2] Goal Plan of Care Note [code = 41665-7] Goal Plan of Care Note [code = 49994-8] Goal Plan of Care Note [code = 02007-0] Goal Plan of Care Note [code = 78043-4] Goal Plan of Care Note [code = 69985-2] Goal Plan of Care Note [code = 56206-8] Goal Plan of Care Note [code = 79740-3] Goal Plan of Care Note [code = 47707-7] Goal Plan of Care Note [code = 68679-7] Goal Plan of Care Note [code = 96758-4] Goal Plan of Care Note [code = 77278-5] Goal Plan of Care Note [code = 44532-7] Goal Plan of Care Note [code = 40360-4] Goal Plan of Care Note [code = 41729-9] Goal Plan of Care Note [code = 65443-5] Goal Plan of Care Note [code = 68480-9] Goal Plan of Care Note [code = 35574-8] Goal Plan of Care Note [code = 98332-4] Goal Plan of Care Note [code = 82792-6] Goal Plan of Care Note [code = 26117-0] Goal Plan of Care Note [code = 53691-1] Goal Plan of Care Note [code = 15546-1] Goal Plan of Care Note [code = 02449-8] Goal Plan of Care Note [code = 35033-0] Goal Plan of Care Note [code = 19053-2] Goal Plan of Care Note [code = 21119-6] Goal Plan of Care Note [code = 68887-0] Goal Plan of Care Note [code = 54771-7] Goal Plan of Care Note [code = 01201-4] Goal Plan of Care Note [code = 83198-4] Goal Plan of Care Note [code = 65280-5] Goal Plan of Care Note [code = 86414-0] Goal Plan of Care Note [code = 39171-1] Goal Plan of Care Note [code = 65973-5] Goal Plan of Care Note [code = 44973-3] Goal Plan of Care Note [code = 24908-0] Goal Plan of Care Note [code = 71495-5] Goal Plan of Care Note [code = 19312-7] Goal Plan of Care Note [code = 87900-0] Goal Plan of Care Note [code = 89096-6] Goal Plan of Care Note [code = 91926-5] Goal Plan of Care Note [code = 09243-5] Goal Plan of Care Note [code = 48563-9] Goal Plan of Care Note [code = 16297-1] Goal Plan of Care Note [code = 19045-4] Goal Plan of Care Note [code = 82932-7] Goal Plan of Care Note [code = 35174-1] Goal Plan of Care Note [code = 37213-1] Goal Plan of Care Note [code = 60401-4] Goal Plan of Care Note [code = 42284-6] Goal Plan of Care Note [code = 96313-1] Goal Plan of Care Note [code = 27858-0] Goal Plan of Care Note [code = 40698-8] Goal Plan of Care Note [code = 15931-2] Goal Plan of Care Note [code = 03033-3] Goal Plan of Care Note [code = 27795-0] Goal Plan of Care Note [code = 20985-8] Goal Plan of Care Note [code = 24048-2] Goal Plan of Care Note [code = 79589-4] Goal Plan of Care Note [code = 09396-7] Goal Plan of Care Note [code = 37968-4] Goal Plan of Care Note [code = 03414-7] Goal Plan of Care Note [code = 93369-0] Goal Plan of Care Note [code = 94526-4] Goal Plan of Care Note [code = 40891-4] Goal Plan of Care Note [code = 72913-5] Goal Plan of Care Note [code = 46270-7] Goal Plan of Care Note [code = 88066-8] Goal Plan of Care Note [code = 89843-7] Goal Plan of Care Note [code = 94202-6] Goal Plan of Care Note [code = 81113-3] Goal Plan of Care Note [code = 95922-0] Goal Plan of Care Note [code = 34547-1] Goal Plan of Care Note [code = 23824-8] Goal Plan of Care Note [code = 53559-0] Goal Plan of Care Note [code = 97395-3] Goal Plan of Care Note [code = 85069-8] Goal Plan of Care Note [code = 15289-9] Goal Plan of Care Note [code = 76603-9] Goal Plan of Care Note [code = 79809-2] Goal Plan of Care Note [code = 94225-9] Goal Plan of Care Note [code = 72452-2] Goal Plan of Care Note [code = 63455-2] Goal Plan of Care Note [code = 58376-2] Goal Plan of Care Note [code = 48042-6] Goal Plan of Care Note [code = 02494-6] Goal Plan of Care Note [code = 01807-0] Goal Plan of Care Note [code = 04063-0] Goal Plan of Care Note [code = 26605-8] Goal Plan of Care Note [code = 00821-2] Goal Plan of Care Note [code = 37262-2] Goal Plan of Care Note [code = 09859-4] Goal Plan of Care Note [code = 02831-8] Goal Plan of Care Note [code = 28073-5] Goal Plan of Care Note [code = 59429-0] Goal Plan of Care Note [code = 14636-2] Goal Plan of Care Note [code = 42319-9] Goal Plan of Care Note [code = 39765-6] Goal Plan of Care Note [code = 66989-4] Goal Plan of Care Note [code = 38132-9] Goal Plan of Care Note [code = 75576-5] Goal Plan of Care Note [code = 44244-2] Goal Plan of Care Note [code = 72763-3] Goal Plan of Care Note [code = 68014-0] Goal Plan of Care Note [code = 44294-4] Goal Plan of Care Note [code = 60502-8] Goal Plan of Care Note [code = 50342-8] Goal Plan of Care Note [code = 40731-4] Goal Plan of Care Note [code = 12640-6] Goal Plan of Care Note [code = 63277-2] Goal Plan of Care Note [code = 21639-5] Goal Plan of Care Note [code = 95517-1] Goal Plan of Care Note [code = 45647-9] Goal Plan of Care Note [code = 29846-7] Goal Plan of Care Note [code = 81036-5] Goal Plan of Care Note [code = 76931-5] Goal Plan of Care Note [code = 55435-0] Goal Plan of Care Note [code = 20665-3] Goal Plan of Care Note [code = 23388-6] Goal Plan of Care Note [code = 10543-5] Goal Plan of Care Note [code = 06659-4] Goal Plan of Care Note [code = 52166-4] Goal Plan of Care Note [code = 95857-9] Goal Plan of Care Note [code = 17810-8] Goal Plan of Care Note [code = 36045-3] Goal Plan of Care Note [code = 42788-0] Goal Plan of Care Note [code = 62840-0] Goal Plan of Care Note [code = 16107-7] Goal Plan of Care Note [code = 95324-3] Goal Plan of Care Note [code = 68474-3] Goal Plan of Care Note [code = 48288-1] Goal Plan of Care Note [code = 23412-9] Goal Plan of Care Note [code = 02144-4] Goal Plan of Care Note [code = 63661-8] Goal Plan of Care Note [code = 89794-7] Goal Plan of Care Note [code = 55094-3] Goal Plan of Care Note [code = 29349-0] Goal Plan of Care Note [code = 18902-0] Goal Plan of Care Note [code = 61773-0] Goal Plan of Care Note [code = 68112-2] Goal Plan of Care Note [code = 61342-2] Goal Plan of Care Note [code = 33852-2] Goal Plan of Care Note [code = 10320-5] Goal Plan of Care Note [code = 41359-7] Goal Plan of Care Note [code = 52066-3] Goal Plan of Care Note [code = 32259-8] Goal Plan of Care Note [code = 10487-1] Goal Plan of Care Note [code = 58107-7] Goal Plan of Care Note [code = 16525-1] Goal Plan of Care Note [code = 00875-7] Goal Plan of Care Note [code = 27620-5] Goal Plan of Care Note [code = 67494-5] Goal Plan of Care Note [code = 49908-8] Goal Plan of Care Note [code = 36929-8] Goal Plan of Care Note [code = 88300-6] Goal Plan of Care Note [code = 09645-5] Goal Plan of Care Note [code = 28030-8] Goal Plan of Care Note [code = 16673-6] Goal Plan of Care Note [code = 52962-7] Goal Plan of Care Note [code = 07352-3] Goal Plan of Care Note [code = 89797-1] Goal Plan of Care Note [code = 29773-3] Goal Plan of Care Note [code = 84321-3] Goal Plan of Care Note [code = 88791-5] Goal Plan of Care Note [code = 34442-2] Goal Plan of Care Note [code = 85191-2] Goal Plan of Care Note [code = 01966-3] Goal Plan of Care Note [code = 15674-1] Goal Plan of Care Note [code = 34539-0] Goal Plan of Care Note [code = 60921-1] Goal Plan of Care Note [code = 39416-3] Goal Plan of Care Note [code = 48264-2] Goal Plan of Care Note [code = 00060-0] Goal Plan of Care Note [code = 59382-5] Goal Plan of Care Note [code = 88578-9] Goal Plan of Care Note [code = 34038-7] Goal Plan of Care Note [code = 08364-2] Goal Plan of Care Note [code = 69449-8] Goal Plan of Care Note [code = 83924-8] Goal Plan of Care Note [code = 73299-6] Goal Plan of Care Note [code = 54120-5] Goal Plan of Care Note [code = 79198-9] Goal Plan of Care Note [code = 56403-3] Goal Plan of Care Note [code = 00740-4] Goal Plan of Care Note [code = 88936-4] Goal Plan of Care Note [code = 63232-6] Goal Plan of Care Note [code = 41761-8] Goal Plan of Care Note [code = 14577-8] Goal Plan of Care Note [code = 60452-9] Goal Plan of Care Note [code = 94519-2] Goal Plan of Care Note [code = 26783-8] Goal Plan of Care Note [code = 98651-9] Goal Plan of Care Note [code = 30980-0] Goal Plan of Care Note [code = 07888-8] Goal Plan of Care Note [code = 90834-0] Goal Plan of Care Note [code = 75741-5] Goal Plan of Care Note [code = 80483-6] Goal Plan of Care Note [code = 00068-8] Goal Plan of Care Note [code = 50229-3] Goal Plan of Care Note [code = 08693-1] Goal Plan of Care Note [code = 82621-0] Goal Plan of Care Note [code = 05808-9] Goal Plan of Care Note [code = 94235-3] Goal Plan of Care Note [code = 11964-7] Goal Plan of Care Note [code = 53581-3] Goal Plan of Care Note [code = 97576-4] Goal Plan of Care Note [code = 51130-7] Goal Plan of Care Note [code = 59021-8] Goal Plan of Care Note [code = 10892-0] Goal Plan of Care Note [code = 93701-4] Goal Plan of Care Note [code = 68282-1] Goal Plan of Care Note [code = 67926-2] Goal Plan of Care Note [code = 24060-5] Goal Plan of Care Note [code = 66068-1] Goal Plan of Care Note [code = 81266-7] Goal Plan of Care Note [code = 85890-0] Goal Plan of Care Note [code = 81089-3] Goal Plan of Care Note [code = 18863-7] Goal Plan of Care Note [code = 68358-0] Goal Plan of Care Note [code = 29935-5] Goal Plan of Care Note [code = 31313-9] Goal Plan of Care Note [code = 38952-1] Goal Plan of Care Note [code = 56019-3] Goal Plan of Care Note [code = 98853-5] Goal Plan of Care Note [code = 70393-5] Goal Plan of Care Note [code = 01971-2] Goal Plan of Care Note [code = 87942-4] Goal Plan of Care Note [code = 07656-5] Goal Plan of Care Note [code = 18598-4] Goal Plan of Care Note [code = 39996-6] Goal Plan of Care Note [code = 51744-8] Goal Plan of Care Note [code = 90818-1] Goal Plan of Care Note [code = 37017-2] Goal Plan of Care Note [code = 01159-2] Goal Plan of Care Note [code = 90473-8] Goal Plan of Care Note [code = 86213-4] Goal Plan of Care Note [code = 38164-9] Goal Plan of Care Note [code = 91752-9] Goal Plan of Care Note [code = 59139-5] Goal Plan of Care Note [code = 65796-4] Goal Plan of Care Note [code = 45706-1] Goal Plan of Care Note [code = 15351-0] Goal Plan of Care Note [code = 90985-6] Goal Plan of Care Note [code = 54011-1] Goal Plan of Care Note [code = 71038-5] Goal Plan of Care Note [code = 68828-5] Goal Plan of Care Note [code = 56144-4] Goal Plan of Care Note [code = 39089-8] Goal Plan of Care Note [code = 86794-3] Goal Plan of Care Note [code = 98820-0] Goal Plan of Care Note [code = 59313-8] Goal Plan of Care Note [code = 33939-0] Goal Plan of Care Note [code = 07016-8] Goal Plan of Care Note [code = 74310-9] Goal Plan of Care Note [code = 33993-1] Goal Plan of Care Note [code = 20798-6] Goal Plan of Care Note [code = 92563-7] Goal Plan of Care Note [code = 55053-7] Goal Plan of Care Note [code = 40992-7] Goal Plan of Care Note [code = 84123-7] Goal Plan of Care Note [code = 76213-0] Goal Plan of Care Note [code = 54753-4] Goal Plan of Care Note [code = 27611-5] Goal Plan of Care Note [code = 56806-9] Instructions [facility] Encounters Start End Encounter Admission Attending Care Care Encounter Source Date/Time Date/Time Type Type Clinicians Facility Department ID 2022-04-10 Outpatient [facility] [id number] Common 07:57:00 [facility] 2022-04-09 Outpatient [facility] [id number] Common 17:02:00 [facility] 2022-02-03 Outpatient [facility] [id number] Common 10:37:15 [facility] 2021-12-23 Outpatient [facility] [id number] Common 14:56:00 [facility] 2021-12-04 Outpatient [facility] [id number] Common 15:19:00 [facility] 2021-10-29 Outpatient STLMLC STLMLC [id number] Common 16:15:01 [facility] 2021-10-21 Outpatient STLMLC STLMLC [id number] Common 15:08:00 [facility] 2021-10-16 Outpatient STLMLC STLMLC [id number] Common 14:40:22 [facility] 2021-10-16 Outpatient STLMLC STLMLC [id number] Common 14:26:36 [facility] 2021-10-16 Outpatient STLMLC STLMLC [id number] Common 14:15:34 [facility] 2021-10-16 Outpatient STLMLC STLMLC [id number] Common 14:12:05 [facility] 2021-10-16 Outpatient STLMLC STLMLC [id number] Common 14:11:16 [facility] 2021-10-16 Outpatient STLMLC STLMLC [id number] Common 11:16:32 [id number] [facility] 2020-11-28 Inpatient Edna, HCAPM HCAPM [id number] HCA 10:53:18 Chino Walsh [facility] 2023-01-22 2023-01-22 Outpatient FOG_[place] AOSM AOSM [id number] Ngoc 00:00:00 00:00:00 _Kendal [id number] [facility] 2023-01-20 2023-01-20 Outpatient [facility] [id number] Mio 13:32:35 13:32:35 0502 F [place] 2023-01-14 2023-01-14 Outpatient FOG_[place] AOSM AOSM [id number] Ngoc 00:00:00 00:00:00 _Kendal [id number] [facility] 2022-12-10 2022-12-10 Outpatient FOG_[place] AOSM AOSM [id number] Ngoc 00:00:00 00:00:00 _Kendal 577184 [facility] 2022-11-05 2022-11-05 Outpatient [facility]OG_[place] AOSM AOSM [id number] Ngoc 00:00:00 00:00:00 _Kendal 289670 [facility] 2022-10-09 2022-10-09 Outpatient [facility]_[place] AOSM AOSM [id number] Ngoc 00:00:00 00:00:00 _Kendal 812747 [facility] 2022-10-09 2022-10-09 Rogerio A AOSM [place] - Ortho [id number] Ngoc 00:00:00 00:00:00 Suzie Caldwell MD: [id number] FOG_Ofc dic [facility], [place] [address] , Ph. [phone] 2022-09-03 2022-09-03 Outpatient [id number] 00:00:00 00:00:00 Visit u49a-8i0r 84f-4f0d-9 -9214-cf8 214-cf83d5 7d2ks503y pl461y 2022-09-02 2022-09-02 Outpatient [facility] AOSM AOSM [id number] Ngoc 00:00:00 00:00:00 _Kendal 115548 [facility] 2022-09-02 2022-09-02 Outpatient [facility]OG_[place] AOSM AOSM [id number] Ngoc 00:00:00 00:00:00 _Yadiel_ [id number] [facility] 2022-09-01 2022-09-01 Outpatient SFA SFA [id number] Mio 13:12:57 13:12:57 1212 F [place] 2022-09-01 2022-09-01 Outpatient [id number]- [id number] af rg586i-[id number] 00:00:00 00:00:00 Visit 79f5-5103 9n9-7772-8 -931d-b82 31d-n9383i 37e4y9g99 4f5f25 2022-08-27 2022-08-27 Telephone [facility] [id number] Univers 00:00:00 00:00:00 Guillermojun [place] [id number] it[place] [phone] Vt dic[address] 2022-08-26 2022-08-26 Telephone [facility] [id number] Univers 00:00:00 00:00:00 Guillermojun [place] [id number] [place] [phone] Vt dical NAL [address] [place] [address] 2022-08-25 2022-08-25 Telephone [facility] [id number] Univers 00:00:00 00:00:00 Qiaskye [place] [id number] [place] [phone] Vt dicjeni NAL 9 [facility] 2022-08-25 2022-08-25 Telephone [facility] [id number] Univers 00:00:00 00:00:00 Kahlil COOPERLAZ [id number] ity of [facility] [place] [phone] [address] 2022-08-21 2022-08-21 [facility] [id number] Univers 14:00:00 23:59:00 JASONSKYE irenearmando fountain [facility] 2022-07-31 2022-07-31 Outpatient SFA SFA [id number] Mio 08:33:27 08:33:27 1110 F [place] 2022-07-31 2022-07-31 Outpatient [id number]- [id number] aa [id number] 00:00:00 00:00:00 Visit 8k7u-3602 a1b-6199-9 -845c-415 45c-415e7f y6j370v6x 721a4e 2022-07-30 2022-07-30 [facility] [id number] Univers 13:40:00 14:11:31 JASONSKYE irenearmando fountain [facility] 2022-07-30 2022-07-30 Office [facility] [id number] Univers 13:40:00 14:11:31 Visit Kahlil LEPE [id number] ity of [facility] [place] [phone] [address] 2022-07-30 2022-07-30 Orders Doctor IRINA [id number] Univers 00:00:00 00:00:00 Only Unassigned, YESSICA [id number] ity of [place] [facility] 4.2.7.2.686 Chandu as [phone] [address] 2022-07-18 2022-07-18 Outpatient [id number] 0d [id number] 00:00:00 00:00:00 Visit 2506-4a95 506-4a95-9 -51b7-kkf 0s9-yyuj9k h1or57bbd f24ecb 2022-07-03 2022-07-03 Outpatient SFA SFA [id number] Mio 14:59:47 14:59:47 1013 F [place] 2022-07-03 2022-07-03 Orders Doctor IRINA [id number] Univers 00:00:00 00:00:00 Only Unassigned, YESSICA [id number] ity of [place] [facility] [id number] Chandu as [phone] [address] 2022-07-03 2022-07-03 Outpatient [id number] 00:00:00 00:00:00 Visit t267-28j4 876-48b5-b -l889-20b 388-45dd78 y1189p44i 16f12c 2022-04-14 2022-04-14 OFFICE STLMLC STLMLC [id number] Co mmon 00:00:00 00:00:00 VISIT Spirit ESTAB PT - CHI LEVEL 4 [facility] 2022-04-03 2022-04-03 Outpatient [id number]- [id number] 00:00:00 00:00:00 Visit 6ep5-6762 bd9-4992-9 -4v21-879 z50-66745f 31x2g466o 8u858n 2022-03-27 2022-03-27 Outpatient [id number] 00:00:00 00:00:00 Visit 4b95-74h6 s08-27p5-4 -3m22-pv9 s09-ly1e4h w1sh9c3r1 b9f0e5 2022-02-27 2022-02-27 (TEL) STLMLC STLMLC [id number] Co mmon 00:00:00 00:00:00 [facility] 2022-02-25 2022-02-25 (TEL) STLMLC STLMLC [id number] Co mmon 00:00:00 00:00:00 [facility] 2022-02-03 2022-02-03 (TEL) STLMLC STLMLC [id number] Co mmon 00:00:00 00:00:00 [facility] 2022-01-13 2022-01-13 (TEL) STLMLC STLMLC [id number] Co mmon 00:00:00 00:00:00 [facility] 2022-01-01 2022-01-01 (TEL) STLMLC STLMLC [id number] Co mmon 00:00:00 00:00:00 [facility] 2021-12-26 2021-12-26 (TEL) STLMLC STLMLC [id number] Co mmon 00:00:00 00:00:00 [facility] 2021-12-24 2021-12-24 OFFICE STLMLC STLMLC [id number] Co mmon 00:00:00 00:00:00 VISIT [facility] PT - CHI LEVEL 4 [facility] 2021-12-04 2021-12-04 (TEL) STLMLC STLMLC [id number] Co mmon 00:00:00 00:00:00 [facility] 2021-11-21 2021-11-21 (TEL) STLMLC STLMLC [id number] Co mmon 00:00:00 00:00:00 [facility] 2021-10-23 2021-10-23 (TEL) STLMLC STLMLC [id number] Co mmon 00:00:00 00:00:00 [facility] 2021-10-22 2021-10-22 OFFICE STLMLC STLMLC [id number] Co mmon 00:00:00 00:00:00 VISIT [facility] PT - CHI LEVEL 4 [facility] 2021-10-17 2021-10-17 (TEL) STLMLC STLMLC [id number] Co mmon 00:00:00 00:00:00 [facility] 2021-10-17 2021-10-17 (TEL) STLMLC STLMLC [id number] Co mmon 00:00:00 00:00:00 [facility] 2021-10-15 2021-10-15 (TEL) STLMLC STLMLC [id number] Co mmon 00:00:00 00:00:00 [facility] 2021-10-08 2021-10-08 (TEL) STLMLC STLMLC [id number] Co mmon 00:00:00 00:00:00 [facility] 2021-10-01 2021-10-01 NON-BILLAB STLMLC STLMLC [id number] Common 00:00:00 00:00:00 LE VISIT [facility] 2021-08-28 2021-08-28 (TEL) STLMLC STLMLC [id number] Co mmon 00:00:00 00:00:00 [facility] 2021-08-26 2021-08-26 NON-BILLAB STLMLC STLMLC [id number] Common 00:00:00 00:00:00 LE VISIT [facility] 2021-08-19 2021-08-19 (TEL) STLMLC STLMLC [id number] Co mmon 00:00:00 00:00:00 [facility] 2021-08-05 2021-08-05 (TEL) STLMLC STLMLC [id number] Co mmon 00:00:00 00:00:00 [facility] 2021-08-01 2021-08-01 (TEL) STLMLC STLMLC [id number] Co mmon 00:00:00 00:00:00 [facility] 2021-08-01 2021-08-01 NON-BILLAB STLMLC STLMLC [id number] Common 00:00:00 00:00:00 LE VISIT [facility] 2021-07-26 2021-07-26 (TEL) STLMLC STLMLC [id number] Co mmon 00:00:00 00:00:00 [facility] 2021-07-25 2021-07-25 Postop STLMLC STLMLC [id number] Co mmon 00:00:00 00:00:00 visit [facility] 2021-07-24 2021-07-24 (TEL) STLMLC STLMLC [id number] Co mmon 00:00:00 00:00:00 [facility] 2021-07-22 2021-07-22 (TEL) STLMLC STLMLC [id number] Co mmon 00:00:00 00:00:00 [facility] 2021-07-22 2021-07-22 (TEL) STLMLC STLMLC [id number] Co mmon 00:00:00 00:00:00 [facility] 2021-07-22 2021-07-22 (TEL) STLMLC STLMLC [id number] Co mmon 00:00:00 00:00:00 [facility] 2021-07-09 2021-07-09 (TEL) STLMLC STLMLC [id number] Co mmon 00:00:00 00:00:00 [facility] 2021-07-09 2021-07-09 (TEL) STLMLC STLMLC [id number] Co mmon 00:00:00 00:00:00 [facility] 2021-07-08 2021-07-08 (TEL) STLMLC STLMLC [id number] Co mmon 00:00:00 00:00:00 [facility] 2021-07-08 2021-07-08 (TEL) STLMLC STLMLC [id number] Co mmon 00:00:00 00:00:00 [facility] 2021-06-28 2021-06-28 (TEL) STLMLC STLMLC [id number] Co mmon 00:00:00 00:00:00 [facility] 2021-06-26 2021-06-26 (TEL) STLMLC STLMLC [id number] Co mmon 00:00:00 00:00:00 [facility] 2021-05-24 2021-05-24 (TEL) STLMLC STLMLC [id number] Co mmon 00:00:00 00:00:00 [facility] 2021-05-22 2021-05-22 (TEL) STLMLC STLMLC [id number] Co mmon 00:00:00 00:00:00 [facility] 2021-05-09 2021-05-09 (TEL) STLMLC STLMLC [id number] Co mmon 00:00:00 00:00:00 [facility] 2021-03-27 2021-03-27 Outpatient STLMLC STLMLC [id number] Common 00:00:00 00:00:00 [facility] 2021-02-26 2021-02-26 Outpatient STLMLC STLMLC [id number] Common 00:00:00 00:00:00 [facility] 2021-02-21 2021-02-21 Outpatient STLMLC STLMLC [id number] Common 00:00:00 00:00:00 [facility] 2021 2021 Outpatient STLMLC STLMLC [id number] Common 00:00:00 00:00:00 [facility] 2021-02-07 2021-02-07 Outpatient STLMLC STLMLC [id number] Common 00:00:00 00:00:00 [facility] 2021-02-04 2021-02-04 Outpatient STLMLC STLMLC [id number] Common 00:00:00 00:00:00 [facility] 2021-01-17 2021-01-17 Outpatient STLMLC STLMLC [id number] Common 00:00:00 00:00:00 [facility] 2020-12-24 2020-12-24 Outpatient STLMLC STLMLC [id number] Common 00:00:00 00:00:00 [facility] 2020-11-12 2020-11-12 Outpatient STLMLC STLMLC [id number] Common 00:00:00 00:00:00 [facility] 2020-10-30 2020-10-30 Outpatient STLMLC STLMLC [id number] Common 00:00:00 00:00:00 [facility] 2020-10-17 2020-10-17 Outpatient STLMLC STLMLC [id number] Common 00:00:00 00:00:00 [facility] 2020-08-21 2020-08-21 Outpatient STLMLC STLMLC [id number] Common 00:00:00 00:00:00 [facility] 2020-07-30 2020-07-30 Outpatient STLMLC STLMLC [id number] Common 00:00:00 00:00:00 [facility] 2020-06-12 2020-06-12 Outpatient STLMLC STLMLC [id number] Common 00:00:00 00:00:00 [facility] 2020-06-12 2020-06-12 Outpatient STLMLC STLMLC [id number] Common 00:00:00 00:00:00 [facility] 2020-02-02 2020-02-02 [facility] [id number] Common 14:45:00 14:45:00 [facility] 2020-01-31 2020-01-31 [facility] [id number] Common 15:06:00 15:06:00 [facility] 2020-01-26 2020-01-26 [facility] [id number] Common 15:15:00 15:15:00 [facility] 2020-01-18 2020-01-18 [facility] [id number] Common 14:31:00 14:31:00 t [facility] 2020-01-16 2020-01-16 [facility] [id number] Common 15:30:00 15:30:00 t [facility] 2020-01-12 2020-01-12 [facility] [id number] Common 11:16:00 11:16:00 t [facility] 2019-12-21 2019-12-21 [facility] [id number] Common 13:30:00 13:30:00 t [facility] 2019-12-09 2019-12-09 Out[facility] [id number] Common 10:41:00 10:41:00 t [facility] 2019-10-22 2019-10-22 Emergency X [facility] ERT [id number] Univers 15:41:04 17:21:00 MICHAELA [facility] 2019-07-11 2019-07-11 Out[facility] [id number] Common 15:30:00 15:30:00 [facility] 2019-04-05 2019-04-05 [facility] [id number] Common 11:00:00 11:00:00 t [facility] 2019-03-29 2019-03-29 Out[facility] [id number] Common 11:00:00 11:00:00 t [facility] Sp[facility] 2019-03-22 2019-03-22 Outpatient [facility] [id number] Common 10:30:00 10:30:00 t [facility] 2018-06-07 2018-06-07 [facility] [id number] Common 14:00:00 14:00:00 t [facility] Results Test Description Test Time Test Comments Results Result Comments Source COMPREHENSIVE METABOLIC PANEL 2022-08-01 00:00:00 Test Item Value Reference Range Interpretation Comme nts GLUCOSE (test code = 2217) 125 MG/DL BUN (test code = 2208) 13 MG/DL CREATININE (test code = 2214) 0.55 MG/DL eGFR (2020 CKD-EPI) (test code = 47101) 102 ML/MIN/1.73 CALC BUN/CREAT (test code = [...] code = 2219) 9 U/L COMPREHENSIVE METABOLIC [id number] 00:00:00 Test Item Value Reference Range Interpretation Comments GLUCOSE (test code = 2217) 125 MG/DL BUN (test code = 2208) 13 MG/DL CREATININE (test code = 2214) 0.55 MG/DL eGFR (2020 CKD-EPI) (test 102 ML/MIN/1.73 code = 26654) CALC BUN/CREAT (test code = 24 RATIO [...] (test code = 2219) 9 U/L LIPID [id number] 00:00:00 Test Item Value Reference Range Interpretation Comments CHOLESTEROL (test code = 2210) 145 MG/DL TRIGLYCERIDES (test code = 2232) 125 MG/DL HDL CHOLESTEROL (test code = 2220) 55 MG/DL CALC LDL CHOL (test code = 2237) 69 MG/DL RISK RATIO LDL/HDL (test code = 1.25 RATIO 2238) LIPID [id number] 00:00:00 Test Item Value Reference Range Interpretation Comments CHOLESTEROL (test code = 2210) 145 MG/DL TRIGLYCERIDES (test code = 2232) 125 MG/DL HDL CHOLESTEROL (test code = 2220) 55 MG/DL CALC LDL CHOL (test code = 2237) 69 MG/DL RISK RATIO LDL/HDL (test code = 1.25 RATIO 2238) HEMOGLOBIN [id number] 00:00:00 Test Item Value Reference Range Interpretation Comments HEMOGLOBIN A1c (test code = 55960) 6.5 % HEMOGLOBIN [id number] 00:00:00 Test Item Value Reference Range Interpretation Comments HEMOGLOBIN A1c (test code = 28104) 6.5 % HEMOGLOBIN [id number] 00:00:00 Test Item Value Reference Range Interpretation Comments HEMOGLOBIN A1c (test code = 83198) 6.5 % COMPREHENSIVE METABOLIC [id number] 00:00:00 Test Item Value Reference Range Interpretation Comments GLUCOSE (test code = 7) 125 MG/DL BUN (test code = 2208) 13 MG/DL CREATININE (test code = 2214) 0.55 MG/DL eGFR (2020 CKD-EPI) (test 102 ML/MIN/1.73 code = 51017) CALC BUN/CREAT (test code = 24 RATIO [...] code = 2219) 9 U/L COMPREHENSIVE METABOLIC [id number] 00:00:00 Test Item Value Reference Range Interpretation Comments GLUCOSE (test code = 2217) 125 MG/DL BUN (test code = 2208) 13 MG/DL CREATININE (test code = 2214) 0.55 MG/DL eGFR (2020 CKD-EPI) (test 102 ML/MIN/1.73 code = 51164) CALC BUN/CREAT (test code = 24 RATIO [...] (test code = 2219) 9 U/L LIPID [id number] 00:00:00 Test Item Value Reference Range Interpretation Comments CHOLESTEROL (test code = 2210) 145 MG/DL TRIGLYCERIDES (test code = 2232) 125 MG/DL HDL CHOLESTEROL (test code = 2220) 55 MG/DL CALC LDL CHOL (test code = 2237) 69 MG/DL RISK RATIO LDL/HDL (test code = 1.25 RATIO 2238) LIPID [id number] 00:00:00 Test Item Value Reference Range Interpretation Comments CHOLESTEROL (test code = 2210) 145 MG/DL TRIGLYCERIDES (test code = 2232) 125 MG/DL HDL CHOLESTEROL (test code = 2220) 55 MG/DL CALC LDL CHOL (test code = 2237) 69 MG/DL RISK RATIO LDL/HDL (test code = 1.25 RATIO 8) HEMOGLOBIN [id number] 00:00:00 Test Item Value Reference Range Interpretation Comments HEMOGLOBIN A1c (test code = 66132) 6.5 % HEMOGLOBIN [id number] 00:00:00 Test Item Value Reference Range Interpretation Comments HEMOGLOBIN A1c (test code = 16591) 6.5 % HEMOGLOBIN [id number] 00:00:00 Test Item Value Reference Range Interpretation Comments HEMOGLOBIN A1c (test code = 85170) 6.5 % COMPREHENSIVE METABOLIC [id number] 00:00:00 Test Item Value Reference Range Interpretation Comments GLUCOSE (test code = 2217) 125 MG/DL BUN (test code = 2208) 13 MG/DL CREATININE (test code = 2214) 0.55 MG/DL eGFR (2020 CKD-EPI) (test 102 ML/MIN/1.73 code = 89915) CALC BUN/CREAT (test code = 24 RATIO [...] code = 2219) 9 U/L COMPREHENSIVE METABOLIC [id number] 00:00:00 Test Item Value Reference Range Interpretation Comments GLUCOSE (test code = 2217) 125 MG/DL BUN (test code = 2208) 13 MG/DL CREATININE (test code = 2214) 0.55 MG/DL eGFR (2020 CKD-EPI) (test 102 ML/MIN/1.73 code = 45176) CALC BUN/CREAT (test code = 24 RATIO [...] (test code = 2219) 9 U/L LIPID [id number] 00:00:00 Test Item Value Reference Range Interpretation Comments CHOLESTEROL (test code = 2210) 145 MG/DL TRIGLYCERIDES (test code = 2232) 125 MG/DL HDL CHOLESTEROL (test code = 2220) 55 MG/DL CALC LDL CHOL (test code = 2237) 69 MG/DL RISK RATIO LDL/HDL (test code = 1.25 RATIO 2238) LIPID [id number] 00:00:00 Test Item Value Reference Range Interpretation Comments CHOLESTEROL (test code = 2210) 145 MG/DL TRIGLYCERIDES (test code = 2232) 125 MG/DL HDL CHOLESTEROL (test code = 2220) 55 MG/DL CALC LDL CHOL (test code = 2237) 69 MG/DL RISK RATIO LDL/HDL (test code = 1.25 RATIO 2238) HEMOGLOBIN [id number] 00:00:00 Test Item Value Reference Range Interpretation Comments HEMOGLOBIN A1c (test code = 37601) 6.5 % HEMOGLOBIN [id number] 00:00:00 Test Item Value Reference Range Interpretation Comments HEMOGLOBIN A1c (test code = 94385) 6.5 % HEMOGLOBIN [id number] 00:00:00 Test Item Value Reference Range Interpretation Comments HEMOGLOBIN A1c (test code = 87248) 6.5 % SCR MAMM BILATERAL SWAPNA CAD [id number] 08:06:36 Name: Dinah : 1955 Sex: F - SCR MAMM BILATERAL SWAPNA CAD DIGITALBILATERAL DIGITAL SCREENING MAMMOGRAM 3D/2D WITH CAD: 06/13/2022LINICAL: Asymptomatic. Digital breast tomosynthesis was performed in addition to routine CC and MLO views. Current mammographic images were evaluated by [employer] CAD (computer-aided detection) software. Comparison is made to exams dated 02/18/2018 mammogram, 12/23/2016 mammogram - [facility], and 07/12/2015 mammogram - [facility]. There are scattered fibroglandular tissues in both breasts. There are benign calcifications in both breasts. There also are benign vascular calcifications in both breasts. No suspicious mass, architectural distortion, malignant type calcification, or lymph node abnormality detected. Breast architecture is stable compared to prior exams.IMPRESSION: BENIGNThere is no mammographic evidence of malignancy. Resume annual screening mammography in one year. (06/14/2023) Dona lee/penrad:06/20/2022 08:06:36 Valve Assembler: Jennifer Parekh MM, [facility] Mammographyletter sent: BIRADS 1-2 Normal Mammogram BI-RADS: 2 BenignPAP TEST, THINPREP, [id number] 09:35:49 Test Item Value Reference Range Interpretation Comments SOURCE: (test Cervical/Endoc code = 8001) ervical SLIDES: (test 1 code = 8011) LMP: (test code SEE NOTE POST MENOPA USAL = 8000) SPECIMEN (NOTE) Satisfactory f or ADEQUACY: (test evaluation. Endocervical code = 72074) cells/transfor mation zone component present. INTERPRETATION: NILM/NO EPITH. (test code = ABNORMALITY;SE 89766) E BELOW ------- NEGATIVE FO R INTRAEPITHELIAL LESION OR MALIGNANCY ( NILM) --------- --------- --------- - ICE SCULPTOR Cynthia Uribe : (test code = 8101) QC TECHNOLOGIST: Nayeli (test code = Michaela,SCT(ASC 8111) P)CT(IAC) LOCATION: (test (NOTE) Specimens pr ocessed and code = 79007) [facility] [address] [place] [id number], , CLIA: [id number] CPT: (test code (NOTE) 08717 UNLESS OTHERWISE = 8140) INDICATED, COMP UTER [...] avai labfran as applicable. PAP TEST, THINPREP, [id number] 00:00:00 Test Item Value Reference Range Interpretation Comments SOURCE: (test code = Cervical/Endocervical 8001) SLIDES: (test code = 1 8011) LMP: (test code = 8021) SEE NOTE SPECIMEN ADEQUACY: (test (NOTE) code = 05307) INTERPRETATION: (test NILM/NO EPITH. code = 37480) ABNORMALITY;SEE BELOW ICE SCULPTOR: (test Cynthia Uribe code = 8101) QC TECHNOLOGIST: (test Nayeli code = 8111) Josessmagali,SCT(ASCP)CT(IA C) LOCATION: (test code = (NOTE) 26449) CPT: (test code = 8140) (NOTE) PAP TEST, THINPREP, [id number] 00:00:00 Test Item Value Reference Range Interpretation Comments SOURCE: (test code = Cervical/Endocervical 8001) SLIDES: (test code = 1 8011) LMP: (test code = 8021) SEE NOTE SPECIMEN ADEQUACY: (test (NOTE) code = 48194) INTERPRETATION: (test NILM/NO EPITH. code = 19179) ABNORMALITY;SEE BELOW ICE SCULPTOR: ([facility] QC TECHNOLOGIST: (test Nayeli code = 8111) Michaela,SCT(ASCP)CT(IA C) LOCATION: (test code = (NOTE) 28939) CPT: (test code = 8140) (NOTE) PAP TEST, THINPREP, [id number] 00:00:00 Test Item Value Reference Range Interpretation Comments SOURCE: (test code = Cervical/Endocervical 8001) SLIDES: (test code = 1 8011) LMP: (test code = 8021) SEE NOTE SPECIMEN ADEQUACY: (test (NOTE) code = 38206) INTERPRETATION: (test NILM/NO EPITH. code = 06929) ABNORMALITY;SEE BELOW ICE SCULPTOR: (test Cynthia Lara code = 8101) QC TECHNOLOGIST: (test Nayeli code = 8111) Michaela,SCT(ASCP)CT(IA C) LOCATION: (test code = (NOTE) 23263) CPT: (test code = 8140) (NOTE) PAP TEST, THINPREP, [id number] 00:00:00 Test Item Value Reference Range Interpretation Comments SOURCE: (test code = Cervical/Endocervical 8001) SLIDES: (test code = 1 8011) LMP: (test code = 8021) SEE NOTE SPECIMEN ADEQUACY: (test (NOTE) code = 55272) INTERPRETATION: (test NILM/NO EPITH. code = 75992) ABNORMALITY;SEE BELOW ICE SCULPTOR: ([facility] QC TECHNOLOGIST: (test Nayeli code = 8111) MichaelaSCT(ASCP)CT(IA C) LOCATION: (test code = (NOTE) 82656) CPT: (test code = 8140) (NOTE) PAP TEST, THINPREP, [id number] 00:00:00 Test Item Value Reference Range Interpretation Comments SOURCE: (test code = Cervical/Endocervical 8001) SLIDES: (test code = 1 8011) LMP: (test code = 8021) SEE NOTE SPECIMEN ADEQUACY: (test (NOTE) code = 86577) INTERPRETATION: (test NILM/NO EPITH. code = 93260) ABNORMALITY;SEE BELOW ICE SCULPTOR: (test Cynthia Uribe code = 8101) QC TECHNOLOGIST: (test Nayeli code = 8111) MichaelaSCT(ASCP)CT(IA C) LOCATION: (test code = (NOTE) 92307) CPT: (test code = 8140) (NOTE) PAP TEST, THINPREP, [id number] 00:00:00 Test Item Value Reference Range Interpretation Comments SOURCE: (test code = Cervical/Endocervical 8001) SLIDES: (test code = 1 8011) LMP: (test code = 8021) SEE NOTE SPECIMEN ADEQUACY: (test (NOTE) code = 79617) INTERPRETATION: (test NILM/NO EPITH. code = 50845) ABNORMALITY;SEE BELOW ICE SCULPTOR: (test Cynthia Uribe code = 8101) QC TECHNOLOGIST: (test Nayeli code = 8111) MichaelaSCT(ASCP)CT(IA C) LOCATION: (test code = (NOTE) 74259) CPT: (test code = 8140) (NOTE) PAP TEST, THINPREP, [id number] 00:00:00 Test Item Value Reference Range Interpretation Comments SOURCE: (test code = Cervical/Endocervical 8001) SLIDES: (test code = 1 8011) LMP: (test code = 8021) SEE NOTE SPECIMEN ADEQUACY: (test (NOTE) code = 37720) INTERPRETATION: (test NILM/NO EPITH. code = 83295) ABNORMALITY;SEE BELOW ICE SCULPTOR: (test Cynthia Uribe code = 8101) QC TECHNOLOGIST: (test Nayeli code = 8111) Kussad,SCT(ASCP)CT(IA C) LOCATION: (test code = (NOTE) 48217) CPT: (test code = 8140) (NOTE) PAP TEST, THINPREP, [id number] 00:00:00 Test Item Value Reference Range Interpretation Comments SOURCE: (test code = Cervical/Endocervical 8001) SLIDES: (test code = 1 8011) LMP: (test code = 8021) SEE NOTE SPECIMEN ADEQUACY: (test (NOTE) code = 77238) INTERPRETATION: (test NILM/NO EPITH. code = 94438) ABNORMALITY;SEE BELOW ICE SCULPTOR: (test Anniel Samujh code = 8101) QC TECHNOLOGIST: (test Nayeli code = 8111) Josessmagali,SCT(ASCP)CT(IA C) LOCATION: (test code = (NOTE) 02384) CPT: (test code = 8140) (NOTE) PAP TEST, THINPREP, [id number] 00:00:00 Test Item Value Reference Range Interpretation Comments SOURCE: (test code = Cervical/Endocervical 8001) SLIDES: (test code = 1 8011) LMP: (test code = 8021) SEE NOTE SPECIMEN ADEQUACY: (test (NOTE) code = 60323) INTERPRETATION: (test NILM/NO EPITH. code = 62595) ABNORMALITY;SEE BELOW ICE SCULPTOR: (test Anniel Samujh code = 8101) QC TECHNOLOGIST: (test Nayeli code = 8111) MichaelaSCT(ASCP)CT(IA C) LOCATION: (test code = (NOTE) 66884) CPT: (test code = 8140) (NOTE) PAP TEST, THINPREP, [id number] 00:00:00 Test Item Value Reference Range Interpretation Comments SOURCE: (test code = Cervical/Endocervical 8001) SLIDES: (test code = 1 8011) LMP: (test code = 8021) SEE NOTE SPECIMEN ADEQUACY: (test (NOTE) code = 34068) INTERPRETATION: (test NILM/NO EPITH. code = 43215) ABNORMALITY;SEE BELOW ICE SCULPTOR: (test Anniel Samujh code = 8101) QC TECHNOLOGIST: (test Nayeli code = 8111) AMANUEL Jennings(ASCP)CT(IA C) LOCATION: (test code = (NOTE) 50978) CPT: (test code = 8140) (NOTE) PAP TEST, THINPREP, [id number] 00:00:00 Test Item Value Reference Range Interpretation Comments SOURCE: (test code = Cervical/Endocervical 8001) SLIDES: (test code = 1 8011) LMP: (test code = 8021) SEE NOTE SPECIMEN ADEQUACY: (test (NOTE) code = 32639) INTERPRETATION: (test NILM/NO EPITH. code = 03230) ABNORMALITY;SEE BELOW ICE SCULPTOR: (test Cynthia [facility] code = 8101) QC TECHNOLOGIST: (test Nayeli code = 8111) AMANUEL Jennings(ASCP)CT(IA C) LOCATION: (test code = (NOTE) 67332) CPT: (test code = 8140) (NOTE) HPV HIGH RISK WITH GENOTYPE, [id number] 15:22:15 Test Item Value Reference Range Interpretation Comments HPV HIGH RISK INTERP NEGATIVE NEGATIVE (test code = 34618) HPV 16 (test code = NEGATIVE 71718) HPV 18 (test code = NEGATIVE 78940) HPV, HR, OTHER NEGATIVE Testing meth odology is GENOTYPES (test code real-ti me PCR utilizing = 83714) hydrolysis prob es with the [employer] Sh[employer] 4800 system. The jaki t individually [...] PERFORM ED [facility] [place]. [address] [place] [address] LABORATORY DIRE CTOR: WALDO PHILLIPS M.D. CLIA NUMBER [id number] [place] [id number] HPV HIGH RISK WITH GENOTYPE, [id number] 00:00:00 Test Item Value Reference Range Interpretation Comments HPV HIGH RISK INTERP (test code = NEGATIVE 96944) HPV 16 (test code = 21580) NEGATIVE HPV 18 (test code = 43709) NEGATIVE HPV, HR, OTHER GENOTYPES (test code NEGATIVE = 77282) HPV HIGH RISK WITH GENOTYPE, [id number] 00:00:00 Test Item Value Reference Range Interpretation Comments HPV HIGH RISK INTERP (test code = NEGATIVE 94516) HPV 16 (test code = 05888) NEGATIVE HPV 18 (test code = 29646) NEGATIVE HPV, HR, OTHER GENOTYPES (test code NEGATIVE = 07171) HPV HIGH RISK WITH GENOTYPE, [id number] 00:00:00 Test Item Value Reference Range Interpretation Comments HPV HIGH RISK INTERP (test code = NEGATIVE 94105) HPV 16 (test code = 60890) NEGATIVE HPV 18 (test code = 97598) NEGATIVE HPV, HR, OTHER GENOTYPES (test code NEGATIVE = 17477) HPV HIGH RISK WITH GENOTYPE, [id number] 00:00:00 Test Item Value Reference Range Interpretation Comments HPV HIGH RISK INTERP (test code = NEGATIVE 74691) HPV 16 (test code = 70308) NEGATIVE HPV 18 (test code = 79343) NEGATIVE HPV, HR, OTHER GENOTYPES (test code NEGATIVE = 35034) HPV HIGH RISK WITH GENOTYPE, [id number] 00:00:00 Test Item Value Reference Range Interpretation Comments HPV HIGH RISK INTERP (test code = NEGATIVE 16497) HPV 16 (test code = 12613) NEGATIVE HPV 18 (test code = 85092) NEGATIVE HPV, HR, OTHER GENOTYPES (test code NEGATIVE = 26437) HPV HIGH RISK WITH GENOTYPE, [id number] 00:00:00 Test Item Value Reference Range Interpretation Comments HPV HIGH RISK INTERP (test code = NEGATIVE 13609) HPV 16 (test code = 25220) NEGATIVE HPV 18 (test code = 20395) NEGATIVE HPV, HR, OTHER GENOTYPES (test code NEGATIVE = 53797) HPV HIGH RISK WITH GENOTYPE, [id number] 00:00:00 Test Item Value Reference Range Interpretation Comments HPV HIGH RISK INTERP (test code = NEGATIVE 26287) HPV 16 (test code = 40917) NEGATIVE HPV 18 (test code = 59664) NEGATIVE HPV, HR, OTHER GENOTYPES (test code NEGATIVE = 68638) HPV HIGH RISK WITH GENOTYPE, [id number] 00:00:00 Test Item Value Reference Range Interpretation Comments HPV HIGH RISK INTERP (test code = NEGATIVE 07034) HPV 16 (test code = 32953) NEGATIVE HPV 18 (test code = 11252) NEGATIVE HPV, HR, OTHER GENOTYPES (test code NEGATIVE = 11234) HPV HIGH RISK WITH GENOTYPE, [id number] 00:00:00 Test Item Value Reference Range Interpretation Comments HPV HIGH RISK INTERP (test code = NEGATIVE 15908) HPV 16 (test code = 73856) NEGATIVE HPV 18 (test code = 53000) NEGATIVE HPV, HR, OTHER GENOTYPES (test code NEGATIVE = 08750) HPV HIGH RISK WITH GENOTYPE, [id number] 00:00:00 Test Item Value Reference Range Interpretation Comments HPV HIGH RISK INTERP (test code = NEGATIVE 06978) HPV 16 (test code = 08733) NEGATIVE HPV 18 (test code = 24281) NEGATIVE HPV, HR, OTHER GENOTYPES (test code NEGATIVE = 75062) HPV HIGH RISK WITH GENOTYPE, [id number] 00:00:00 Test Item Value Reference Range Interpretation Comments HPV HIGH RISK INTERP (test code = NEGATIVE 90181) HPV 16 (test code = 05733) NEGATIVE HPV 18 (test code = 67272) NEGATIVE HPV, HR, OTHER GENOTYPES (test code NEGATIVE = 78558) HEMOGLOBIN [id number] 05:01:22 Test Item Value Reference Range Interpretation Comments HEMOGLOBIN A1c (test code = 71312) 6.3 % 4.2-5.6 H CBC W/AUTO DIFF WITH [id number] 04:19:27 Test Item Value Reference Range Interpretation [...] message] code = 1065) WBC'S The system [employer] generated this result transmitted ref erence range: [...] 0.00-0.11 UNLESS O THERWISE (test code = 03505) INDICATE D, ALL TESTING PERFORM ED [facility], [facility]. [address] [place] [id number] [place] [address] DIRECTOR: WALDO COSTELLO M.D. CLIA NUMBER [id number] CAP ACCREDITATION N O. [id number] COMPREHENSIVE METABOLIC [id number] 03:45:12 Test Item Value Reference Range Interpretation Comments GLUCOSE (test code = 118 MG/DL 70-99 H 2216) BUN (test code = 14 MG/DL -2207) CREATININE (test 0.58 MG/DL 0.60-1.30 L code = 2214) eGFR (2020 CKD-EPI) 100 >60 (test code = 96252) ML/MIN/1.73 CALC BUN/CREAT (test 24 RATIO 6-28 code = 2235) SODIUM (test code = 144 MEQ/L 340-572 4393) POTASSIUM (test code 4.7 MEQ/L 3.5-5.4 = [...] code = 9 U/L 5-40 2218) LIPID [id number] 03:45:12 Test Item Value Reference Range Interpretation [...] , SEE CLIENT ANNOUNCE MENT AT [email or web address] RISK RATIO LDL/HDL 1.22 RATIO <3.22 (test code = 2238) COMPREHENSIVE METABOLIC [id number] 00:00:00 Test Item Value Reference Range Interpretation Comments GLUCOSE (test code = 2217) 118 MG/DL BUN (test code = 2208) 14 MG/DL CREATININE (test code = 2214) 0.58 MG/DL eGFR (2020 CKD-EPI) (test 100 ML/MIN/1.73 code = 33253) CALC BUN/CREAT (test code = 24 RATIO [...] code = 2219) 9 U/L COMPREHENSIVE METABOLIC [id number] 00:00:00 Test Item Value Reference Range Interpretation Comments GLUCOSE (test code = 2217) 118 MG/DL BUN (test code = 2208) 14 MG/DL CREATININE (test code = 2214) 0.58 MG/DL eGFR (2020 CKD-EPI) (test 100 ML/MIN/1.73 code = 91370) CALC BUN/CREAT (test code = 24 RATIO [...] code = 2219) 9 U/L COMPREHENSIVE METABOLIC [id number] 00:00:00 Test Item Value Reference Range Interpretation Comments GLUCOSE (test code = 2217) 118 MG/DL BUN (test code = 2208) 14 MG/DL CREATININE (test code = 2214) 0.58 MG/DL eGFR (2020 CKD-EPI) (test 100 ML/MIN/1.73 code = 63140) CALC BUN/CREAT (test code = 24 RATIO [...] (test code = 2219) 9 U/L LIPID [id number] 00:00:00 Test Item Value Reference Range Interpretation Comments CHOLESTEROL (test code = 2210) 164 MG/DL TRIGLYCERIDES (test code = 2232) 112 MG/DL HDL CHOLESTEROL (test code = 2220) 65 MG/DL CALC LDL CHOL (test code = 2237) 79 MG/DL RISK RATIO LDL/HDL (test code = 1.22 RATIO 2238) LIPID [id number] 00:00:00 Test Item Value Reference Range Interpretation Comments CHOLESTEROL (test code = 2210) 164 MG/DL TRIGLYCERIDES (test code = 2232) 112 MG/DL HDL CHOLESTEROL (test code = 2220) 65 MG/DL CALC LDL CHOL (test code = 2237) 79 MG/DL RISK RATIO LDL/HDL (test code = 1.22 RATIO 2238) HEMOGLOBIN [id number] 00:00:00 Test Item Value Reference Range Interpretation Comments HEMOGLOBIN A1c (test code = 53700) 6.3 % HEMOGLOBIN [id number] 00:00:00 Test Item Value Reference Range Interpretation Comments HEMOGLOBIN A1c (test code = 29096) 6.3 % HEMOGLOBIN [id number] 00:00:00 Test Item Value Reference Range Interpretation Comments HEMOGLOBIN A1c (test code = 09295) 6.3 % CBC W/AUTO [id number] 00:00:00 Test Item Value Reference Range Interpretation [...] NUCLEATED RBCS (test code = 0.00 K/UL 25401) CBC W/AUTO [id number] 00:00:00 Test Item Value Reference Range Interpretation [...] NUCLEATED RBCS (test code = 0.00 K/UL 61552) CBC W/AUTO [id number] 00:00:00 Test Item Value Reference Range Interpretation [...] NUCLEATED RBCS (test code = 0.00 K/UL 06479) LIPID [id number] 00:00:00 Test Item Value Reference Range Interpretation Comments CHOLESTEROL (test code = 2210) 164 MG/DL TRIGLYCERIDES (test code = 2232) 112 MG/DL HDL CHOLESTEROL (test code = 2220) 65 MG/DL CALC LDL CHOL (test code = 2237) 79 MG/DL RISK RATIO LDL/HDL (test code = 1.22 RATIO 2238) HEMOGLOBIN [id number] 00:00:00 Test Item Value Reference Range Interpretation Comments HEMOGLOBIN A1c (test code = 43629) 6.3 % HEMOGLOBIN [id number] 00:00:00 Test Item Value Reference Range Interpretation Comments HEMOGLOBIN A1c (test code = 63605) 6.3 % COMPREHENSIVE METABOLIC [id number] 00:00:00 Test Item Value Reference Range Interpretation Comments GLUCOSE (test code = 2217) 118 MG/DL BUN (test code = 2208) 14 MG/DL CREATININE (test code = 2214) 0.58 MG/DL eGFR (2020 CKD-EPI) (test 100 ML/MIN/1.73 code = 30308) CALC BUN/CREAT (test code = 24 RATIO [...] code = 2219) 9 U/L CBC W/AUTO [id number] 00:00:00 Test Item Value Reference Range Interpretation [...] NUCLEATED RBCS (test code = 0.00 K/UL 63335) COMPREHENSIVE METABOLIC [id number] 00:00:00 Test Item Value Reference Range Interpretation Comments GLUCOSE (test code = 2217) 118 MG/DL BUN (test code = 2208) 14 MG/DL CREATININE (test code = 2214) 0.58 MG/DL eGFR (2020 CKD-EPI) (test 100 ML/MIN/1.73 code = 73326) CALC BUN/CREAT (test code = 24 RATIO [...] code = 2219) 9 U/L CBC W/AUTO [id number] 00:00:00 Test Item Value Reference Range Interpretation [...] NUCLEATED RBCS (test code = 0.00 K/UL 74007) LIPID [id number] 00:00:00 Test Item Value Reference Range Interpretation Comments CHOLESTEROL (test code = 2210) 164 MG/DL TRIGLYCERIDES (test code = 2232) 112 MG/DL HDL CHOLESTEROL (test code = 2220) 65 MG/DL CALC LDL CHOL (test code = 2237) 79 MG/DL RISK RATIO LDL/HDL (test code = 1.22 RATIO 2238) LIPID [id number] 00:00:00 Test Item Value Reference Range Interpretation Comments CHOLESTEROL (test code = 2210) 164 MG/DL TRIGLYCERIDES (test code = 2232) 112 MG/DL HDL CHOLESTEROL (test code = 2220) 65 MG/DL CALC LDL CHOL (test code = 2237) 79 MG/DL RISK RATIO LDL/HDL (test code = 1.22 RATIO 2238) HEMOGLOBIN [id number] 00:00:00 Test Item Value Reference Range Interpretation Comments HEMOGLOBIN A1c (test code = 19208) 6.3 % HEMOGLOBIN [id number] 00:00:00 Test Item Value Reference Range Interpretation Comments HEMOGLOBIN A1c (test code = 60084) 6.3 % HEMOGLOBIN [id number] 00:00:00 Test Item Value Reference Range Interpretation Comments HEMOGLOBIN A1c (test code = 59798) 6.3 % CBC W/AUTO [id number] 00:00:00 Test Item Value Reference Range Interpretation [...] NUCLEATED RBCS (test code = 0.00 K/UL 60705) CBC W/AUTO [id number] 00:00:00 Test Item Value Reference Range Interpretation [...] NUCLEATED RBCS (test code = 0.00 K/UL 82346) CBC W/AUTO [id number] 00:00:00 Test Item Value Reference Range Interpretation [...] NUCLEATED RBCS (test code = 0.00 K/UL 09797) COMPREHENSIVE METABOLIC [id number] 00:00:00 Test Item Value Reference Range Interpretation Comments GLUCOSE (test code = 2217) 118 MG/DL BUN (test code = 2208) 14 MG/DL CREATININE (test code = 2214) 0.58 MG/DL eGFR (2020 CKD-EPI) (test 100 ML/MIN/1.73 code = 76531) CALC BUN/CREAT (test code = 24 RATIO [...] code = 2219) 9 U/L COMPREHENSIVE METABOLIC [id number] 00:00:00 Test Item Value Reference Range Interpretation Comments GLUCOSE (test code = 2217) 118 MG/DL BUN (test code = 2208) 14 MG/DL CREATININE (test code = 2214) 0.58 MG/DL eGFR (2020 CKD-EPI) (test 100 ML/MIN/1.73 code = 01700) CALC BUN/CREAT (test code = 24 RATIO [...] (test code = 2219) 9 U/L LIPID [id number] 00:00:00 Test Item Value Reference Range Interpretation Comments CHOLESTEROL (test code = 2210) 164 MG/DL TRIGLYCERIDES (test code = 2232) 112 MG/DL HDL CHOLESTEROL (test code = 2220) 65 MG/DL CALC LDL CHOL (test code = 2237) 79 MG/DL RISK RATIO LDL/HDL (test code = 1.22 RATIO 2238) LIPID [id number] 00:00:00 Test Item Value Reference Range Interpretation Comments CHOLESTEROL (test code = 2210) 164 MG/DL TRIGLYCERIDES (test code = 2232) 112 MG/DL HDL CHOLESTEROL (test code = 2220) 65 MG/DL CALC LDL CHOL (test code = 2237) 79 MG/DL RISK RATIO LDL/HDL (test code = 1.22 RATIO 2238) HEMOGLOBIN [id number] 00:00:00 Test Item Value Reference Range Interpretation Comments HEMOGLOBIN A1c (test code = 16482) 6.3 % HEMOGLOBIN [id number] 00:00:00 Test Item Value Reference Range Interpretation Comments HEMOGLOBIN A1c (test code = 83856) 6.3 % HEMOGLOBIN [id number] 00:00:00 Test Item Value Reference Range Interpretation Comments HEMOGLOBIN A1c (test code = 55028) 6.3 % CBC W/AUTO [id number] 00:00:00 Test Item Value Reference Range Interpretation [...] NUCLEATED RBCS (test code = 0.00 K/UL 07926) CBC W/AUTO [id number] 00:00:00 Test Item Value Reference Range Interpretation [...] NUCLEATED RBCS (test code = 0.00 K/UL 52011) CBC W/AUTO [id number] 00:00:00 Test Item Value Reference Range Interpretation [...] NUCLEATED RBCS (test code = 0.00 K/UL 52800) COMPREHENSIVE METABOLIC [id number] 00:00:00 Test Item Value Reference Range Interpretation Comments GLUCOSE (test code = 2217) 118 MG/DL BUN (test code = 2208) 14 MG/DL CREATININE (test code = 2214) 0.58 MG/DL eGFR (2020 CKD-EPI) (test 100 ML/MIN/1.73 code = 88714) CALC BUN/CREAT (test code = 24 RATIO [...] (test code = 2219) 9 U/L LIPID [id number] 00:00:00 Test Item Value Reference Range Interpretation Comments CHOLESTEROL (test code = 2210) 164 MG/DL TRIGLYCERIDES (test code = 2232) 112 MG/DL HDL CHOLESTEROL (test code = 2220) 65 MG/DL CALC LDL CHOL (test code = 2237) 79 MG/DL RISK RATIO LDL/HDL (test code = 1.22 RATIO 2238) HEMOGLOBIN [id number] 00:00:00 Test Item Value Reference Range Interpretation Comments HEMOGLOBIN A1c (test code = 41971) 6.3 % HEMOGLOBIN [id number] 00:00:00 Test Item Value Reference Range Interpretation Comments HEMOGLOBIN A1c (test code = 16989) 6.3 % CBC W/AUTO [id number] 00:00:00 Test Item Value Reference Range Interpretation [...] NUCLEATED RBCS (test code = 0.00 K/UL 10574) CBC W/AUTO [id number] 00:00:00 Test Item Value Reference Range Interpretation [...] NUCLEATED RBCS (test code = 0.00 K/UL 08061) COMPREHENSIVE METABOLIC [id number] 00:00:00 Test Item Value Reference Range Interpretation Comments GLUCOSE (test code = 2217) 118 MG/DL BUN (test code = 2208) 14 MG/DL CREATININE (test code = 2214) 0.58 MG/DL eGFR (2020 CKD-EPI) (test 100 ML/MIN/1.73 code = 24184) CALC BUN/CREAT (test code = 24 RATIO [...] code = 2219) 9 U/L COMPREHENSIVE METABOLIC [id number] 00:00:00 Test Item Value Reference Range Interpretation Comments GLUCOSE (test code = 2217) 118 MG/DL BUN (test code = 2208) 14 MG/DL CREATININE (test code = 2214) 0.58 MG/DL eGFR (2020 CKD-EPI) (test 100 ML/MIN/1.73 code = 32383) CALC BUN/CREAT (test code = 24 RATIO [...] (test code = 2219) 9 U/L LIPID [id number] 00:00:00 Test Item Value Reference Range Interpretation Comments CHOLESTEROL (test code = 2210) 164 MG/DL TRIGLYCERIDES (test code = 2232) 112 MG/DL HDL CHOLESTEROL (test code = 2220) 65 MG/DL CALC LDL CHOL (test code = 2237) 79 MG/DL RISK RATIO LDL/HDL (test code = 1.22 RATIO 2238) LIPID [id number] 00:00:00 Test Item Value Reference Range Interpretation Comments CHOLESTEROL (test code = 2210) 164 MG/DL TRIGLYCERIDES (test code = 2232) 112 MG/DL HDL CHOLESTEROL (test code = 2220) 65 MG/DL CALC LDL CHOL (test code = 2237) 79 MG/DL RISK RATIO LDL/HDL (test code = 1.22 RATIO 2238) HEMOGLOBIN [id number] 00:00:00 Test Item Value Reference Range Interpretation Comments HEMOGLOBIN A1c (test code = 44425) 6.3 % HEMOGLOBIN [id number] 00:00:00 Test Item Value Reference Range Interpretation Comments HEMOGLOBIN A1c (test code = 24665) 6.3 % HEMOGLOBIN [id number] 00:00:00 Test Item Value Reference Range Interpretation Comments HEMOGLOBIN A1c (test code = 05728) 6.3 % CBC W/AUTO [id number] 00:00:00 Test Item Value Reference Range Interpretation [...] NUCLEATED RBCS (test code = 0.00 K/UL 62084) CBC W/AUTO [id number] 00:00:00 Test Item Value Reference Range Interpretation [...] NUCLEATED RBCS (test code = 0.00 K/UL 94105) CBC W/AUTO [id number] 00:00:00 Test Item Value Reference Range Interpretation [...] NUCLEATED RBCS (test code = 0.00 K/UL 11450) COMPREHENSIVE METABOLIC [id number] 00:00:00 Test Item Value Reference Range Interpretation Comments GLUCOSE (test code = 2217) 118 MG/DL BUN (test code = 2208) 14 MG/DL CREATININE (test code = 2214) 0.58 MG/DL eGFR (2020 CKD-EPI) (test 100 ML/MIN/1.73 code = 47698) CALC BUN/CREAT (test code = 24 RATIO [...] code = 2219) 9 U/L COMPREHENSIVE METABOLIC [id number] 00:00:00 Test Item Value Reference Range Interpretation Comments GLUCOSE (test code = 2217) 118 MG/DL BUN (test code = 2208) 14 MG/DL CREATININE (test code = 2214) 0.58 MG/DL eGFR (2020 CKD-EPI) (test 100 ML/MIN/1.73 code = 49297) CALC BUN/CREAT (test code = 24 RATIO [...] (test code = 2219) 9 U/L LIPID [id number] 00:00:00 Test Item Value Reference Range Interpretation Comments CHOLESTEROL (test code = 2210) 164 MG/DL TRIGLYCERIDES (test code = 2232) 112 MG/DL HDL CHOLESTEROL (test code = 2220) 65 MG/DL CALC LDL CHOL (test code = 2237) 79 MG/DL RISK RATIO LDL/HDL (test code = 1.22 RATIO 2238) LIPID [id number] 00:00:00 Test Item Value Reference Range Interpretation Comments CHOLESTEROL (test code = 2210) 164 MG/DL TRIGLYCERIDES (test code = 2232) 112 MG/DL HDL CHOLESTEROL (test code = 2220) 65 MG/DL CALC LDL CHOL (test code = 2237) 79 MG/DL RISK RATIO LDL/HDL (test code = 1.22 RATIO 2238) HEMOGLOBIN [id number] 00:00:00 Test Item Value Reference Range Interpretation Comments HEMOGLOBIN A1c (test code = 59882) 6.3 % HEMOGLOBIN [id number] 00:00:00 Test Item Value Reference Range Interpretation Comments HEMOGLOBIN A1c (test code = 96780) 6.3 % HEMOGLOBIN [id number] 00:00:00 Test Item Value Reference Range Interpretation Comments HEMOGLOBIN A1c (test code = 38775) 6.3 % CBC W/AUTO [id number] 00:00:00 Test Item Value Reference Range Interpretation [...] NUCLEATED RBCS (test code = 0.00 K/UL 96180) CBC W/AUTO [id number] 00:00:00 Test Item Value Reference Range Interpretation [...] NUCLEATED RBCS (test code = 0.00 K/UL 08045) CBC W/AUTO [id number] 00:00:00 Test Item Value Reference Range Interpretation [...] NUCLEATED RBCS (test code = 0.00 K/UL 42830) CULTURE, [id number] 08:37:02SPECIMEN NUMBER: [id number] CULTURE, URINE SPECIMEN NUMBER: [id number] SPECIMEN COMMENT: URINE SOURCE:URINE REPORT STATUS: FINAL FINAL REPORT: 12/13/2021 >100,000 CFU/ML UROGENITAL JESICA PRESENT NO CO MMON PATHOGENS UNLESS OTHERWISE INDICATED, ALL TESTING PERFOR[facility] [address] [place] [id number] STUDENT AFFAIRS VICE PRESIDENT: WALDO COSTELLO M.D. CLIA NUMBER [id number] [place]. [id number] CULTURE, [id number] 00:00:00 Test Item Value Reference Range Interpretation Comments CULTURE, URINE (test SPECIMEN NUMBER: code = 17418) [id number] CULTURE, [id number] 00:00:00 Test Item Value Reference Range Interpretation Comments CULTURE, URINE (test SPECIMEN NUMBER: code = 37760) [id number] CULTURE, [id number] 00:00:00 Test Item Value Reference Range Interpretation Comments CULTURE, URINE (test SPECIMEN NUMBER: code = 18334) [id number] CULTURE, [id number] 00:00:00 Test Item Value Reference Range Interpretation Comments CULTURE, URINE (test SPECIMEN NUMBER: code = 09273) [id number] CULTURE, [id number] 00:00:00 Test Item Value Reference Range Interpretation Comments CULTURE, URINE (test SPECIMEN NUMBER: code = 78074) [id number] CULTURE, [id number] 00:00:00 Test Item Value Reference Range Interpretation Comments CULTURE, URINE (test SPECIMEN NUMBER: code = 16822) [id number] CULTURE, [id number] 00:00:00 Test Item Value Reference Range Interpretation Comments CULTURE, URINE (test SPECIMEN NUMBER: code = 56356) [id number] CULTURE, [id number] 00:00:00 Test Item Value Reference Range Interpretation Comments CULTURE, URINE (test SPECIMEN NUMBER: code = 29025) [id number] CULTURE, [id number] 00:00:00 Test Item Value Reference Range Interpretation Comments CULTURE, URINE (test SPECIMEN NUMBER: code = 12834) [id number] CULTURE, [id number] 00:00:00 Test Item Value Reference Range Interpretation Comments CULTURE, URINE (test SPECIMEN NUMBER: code = 87859) [id number] CULTURE, [id number] 00:00:00 Test Item Value Reference Range Interpretation Comments CULTURE, URINE (test SPECIMEN NUMBER: code = 11729) [id number] CULTURE, [id number] 00:00:00 Test Item Value Reference Range Interpretation Comments CULTURE, URINE (test SPECIMEN NUMBER: code = 08700) [id number] 00:00:00 Test Item Value Reference Range Interpretation Comments PTT (test code = 1403) 31.0 SECONDS BASIC METABOLIC [id number] 00:00:00 Test Item Value Reference Range Interpretation Comments GLUCOSE (test code = 2217) 103 MG/DL BUN (test code = 2208) 18 MG/DL CREATININE (test code = 2214) 0.56 MG/DL eGFR AMER. (test code 114 ML/MIN/1.73 = 02299) eGFR NON- AMER. (test 99 ML/MIN/1.73 code = 71854) SODIUM (test code = 2231) 141 MEQ/L POTASSIUM (test code = 2228) 4.1 MEQ/L CHLORIDE (test code = 2215) 103 MEQ/L CARBON DIOXIDE (test code = 26 MEQ/L 2206) CALCIUM (test code = 2209) 9.6 MG/DL [id number] 00:00:00 Test Item Value Reference Range Interpretation Comments PTT (test code = 1403) 31.0 SECONDS BASIC METABOLIC [id number] 00:00:00 Test Item Value Reference Range Interpretation Comments GLUCOSE (test code = 2217) 103 MG/DL BUN (test code = 2208) 18 MG/DL CREATININE (test code = 2214) 0.56 MG/DL eGFR AMER. (test code 114 ML/MIN/1.73 = 86039) eGFR NON- AMER. (test 99 ML/MIN/1.73 code = 11821) SODIUM (test code = 2231) 141 MEQ/L POTASSIUM (test code = 2228) 4.1 MEQ/L CHLORIDE (test code = 2215) 103 MEQ/L CARBON DIOXIDE (test code = 26 MEQ/L 2206) CALCIUM (test code = 2209) 9.6 MG/DL [id number] 00:00:00 Test Item Value Reference Range Interpretation Comments PTT (test code = 1403) 31.0 SECONDS [id number] 00:00:00 Test Item Value Reference Range Interpretation Comments PTT (test code = 1403) 31.0 SECONDS [id number] 00:00:00 Test Item Value Reference Range Interpretation Comments PTT (test code = 1403) 31.0 SECONDS BASIC METABOLIC [id number] 00:00:00 Test Item Value Reference Range Interpretation Comments GLUCOSE (test code = 2217) 103 MG/DL BUN (test code = 2208) 18 MG/DL CREATININE (test code = 2214) 0.56 MG/DL eGFR AMER. (test code 114 ML/MIN/1.73 = 81797) eGFR NON- AMER. (test 99 ML/MIN/1.73 code = 35184) SODIUM (test code = 2231) 141 MEQ/L POTASSIUM (test code = 2228) 4.1 MEQ/L CHLORIDE (test code = 2215) 103 MEQ/L CARBON DIOXIDE (test code = 26 MEQ/L 2206) CALCIUM (test code = 2209) 9.6 MG/DL CBC W/AUTO [id number] 00:00:00 Test Item Value Reference Range Interpretation [...] NUCLEATED RBCS (test code = 0.00 K/UL 58344) CBC W/AUTO [id number] 00:00:00 Test Item Value Reference Range Interpretation [...] NUCLEATED RBCS (test code = 0.00 K/UL 08589) PROTHROMBIN TIME (PT)2021-06-15 00:00:00 Test Item Value Reference Range Interpretation Comments PROTHROMBIN TIME (PT) (test code 12.5 SECONDS = 1402) INR (test code = 88234) 0.9 CBC W/AUTO [id number] 00:00:00 Test Item Value Reference Range Interpretation [...] NUCLEATED RBCS (test code = 0.00 K/UL 21517) PROTHROMBIN TIME (PT)2021-06-15 00:00:00 Test Item Value Reference Range Interpretation Comments PROTHROMBIN TIME (PT) (test code 12.5 SECONDS = 1402) INR (test code = 98848) 0.9 HEMOGLOBIN [id number] 00:00:00 Test Item Value Reference Range Interpretation Comments HEMOGLOBIN A1c (test code = 12642) 6.4 % HEMOGLOBIN [id number] 00:00:00 Test Item Value Reference Range Interpretation Comments HEMOGLOBIN A1c (test code = 11352) 6.4 % HEMOGLOBIN [id number] 00:00:00 Test Item Value Reference Range Interpretation Comments HEMOGLOBIN A1c (test code = 99442) 6.4 % PROTHROMBIN TIME (PT)2021-06-15 00:00:00 Test Item Value Reference Range Interpretation Comments PROTHROMBIN TIME (PT) (test code 12.5 SECONDS = 1402) INR (test code = 08692) 0.9 CBC W/AUTO [id number] 00:00:00 Test Item Value Reference Range Interpretation [...] NUCLEATED RBCS (test code = 0.00 K/UL 10514) CBC W/AUTO [id number] 00:00:00 Test Item Value Reference Range Interpretation [...] NUCLEATED RBCS (test code = 0.00 K/UL 91164) BASIC METABOLIC [id number] 00:00:00 Test Item Value Reference Range Interpretation Comments GLUCOSE (test code = 2217) 103 MG/DL BUN (test code = 2208) 18 MG/DL CREATININE (test code = 2214) 0.56 MG/DL eGFR AMER. (test code 114 ML/MIN/1.73 = 56620) eGFR NON- AMER. (test 99 ML/MIN/1.73 code = 06084) SODIUM (test code = 2231) 141 MEQ/L POTASSIUM (test code = 2228) 4.1 MEQ/L CHLORIDE (test code = 2215) 103 MEQ/L CARBON DIOXIDE (test code = 26 MEQ/L 2206) CALCIUM (test code = 2209) 9.6 MG/DL [id number] 00:00:00 Test Item Value Reference Range Interpretation Comments PTT (test code = 1403) 31.0 SECONDS [id number] 00:00:00 Test Item Value Reference Range Interpretation Comments PTT (test code = 1403) 31.0 SECONDS [id number] 00:00:00 Test Item Value Reference Range Interpretation Comments PTT (test code = 1403) 31.0 SECONDS BASIC METABOLIC [id number] 00:00:00 Test Item Value Reference Range Interpretation Comments GLUCOSE (test code = 2217) 103 MG/DL BUN (test code = 2208) 18 MG/DL CREATININE (test code = 2214) 0.56 MG/DL eGFR AMER. (test code 114 ML/MIN/1.73 = 17429) eGFR NON- AMER. (test 99 ML/MIN/1.73 code = 17346) SODIUM (test code = 2231) 141 MEQ/L POTASSIUM (test code = 2228) 4.1 MEQ/L CHLORIDE (test code = 2215) 103 MEQ/L CARBON DIOXIDE (test code = 26 MEQ/L 2206) CALCIUM (test code = 2209) 9.6 MG/DL [id number] 00:00:00 Test Item Value Reference Range Interpretation Comments PTT (test code = 1403) 31.0 SECONDS CBC W/AUTO [id number] 00:00:00 Test Item Value Reference Range Interpretation [...] NUCLEATED RBCS (test code = 0.00 K/UL 41257) CBC W/AUTO [id number] 00:00:00 Test Item Value Reference Range Interpretation [...] NUCLEATED RBCS (test code = 0.00 K/UL 26945) PROTHROMBIN TIME (PT)2021-06-15 00:00:00 Test Item Value Reference Range Interpretation Comments PROTHROMBIN TIME (PT) (test code 12.5 SECONDS = 1402) INR (test code = 62867) 0.9 CBC W/AUTO [id number] 00:00:00 Test Item Value Reference Range Interpretation [...] NUCLEATED RBCS (test code = 0.00 K/UL 15697) HEMOGLOBIN [id number] 00:00:00 Test Item Value Reference Range Interpretation Comments HEMOGLOBIN A1c (test code = 43877) 6.4 % PROTHROMBIN TIME (PT)2021-06-15 00:00:00 Test Item Value Reference Range Interpretation Comments PROTHROMBIN TIME (PT) (test code 12.5 SECONDS = 1402) INR (test code = 21805) 0.9 HEMOGLOBIN [id number] 00:00:00 Test Item Value Reference Range Interpretation Comments HEMOGLOBIN A1c (test code = 86523) 6.4 % HEMOGLOBIN [id number] 00:00:00 Test Item Value Reference Range Interpretation Comments HEMOGLOBIN A1c (test code = 55253) 6.4 % HEMOGLOBIN [id number] 00:00:00 Test Item Value Reference Range Interpretation Comments HEMOGLOBIN A1c (test code = 06229) 6.4 % HEMOGLOBIN [id number] 00:00:00 Test Item Value Reference Range Interpretation Comments HEMOGLOBIN A1c (test code = 59389) 6.4 % [id number] 00:00:00 Test Item Value Reference Range Interpretation Comments PTT (test code = 1403) 31.0 SECONDS [id number] 00:00:00 Test Item Value Reference Range Interpretation Comments PTT (test code = 1403) 31.0 SECONDS BASIC METABOLIC [id number] 00:00:00 Test Item Value Reference Range Interpretation Comments GLUCOSE (test code = 2217) 103 MG/DL BUN (test code = 2208) 18 MG/DL CREATININE (test code = 2214) 0.56 MG/DL eGFR AMER. (test code 114 ML/MIN/1.73 = 28755) eGFR NON- AMER. (test 99 ML/MIN/1.73 code = 38810) SODIUM (test code = 2231) 141 MEQ/L POTASSIUM (test code = 2228) 4.1 MEQ/L CHLORIDE (test code = 2215) 103 MEQ/L CARBON DIOXIDE (test code = 26 MEQ/L 2206) CALCIUM (test code = 2209) 9.6 MG/DL [id number] 00:00:00 Test Item Value Reference Range Interpretation Comments PTT (test code = 1403) 31.0 SECONDS BASIC METABOLIC [id number] 00:00:00 Test Item Value Reference Range Interpretation Comments GLUCOSE (test code = 2217) 103 MG/DL BUN (test code = 2208) 18 MG/DL CREATININE (test code = 2214) 0.56 MG/DL eGFR AMER. (test code 114 ML/MIN/1.73 = 85987) eGFR NON- AMER. (test 99 ML/MIN/1.73 code = 36757) SODIUM (test code = 2231) 141 MEQ/L POTASSIUM (test code = 2228) 4.1 MEQ/L CHLORIDE (test code = 2215) 103 MEQ/L CARBON DIOXIDE (test code = 26 MEQ/L 2206) CALCIUM (test code = 2209) 9.6 MG/DL [id number] 00:00:00 Test Item Value Reference Range Interpretation Comments PTT (test code = 1403) 31.0 SECONDS PROTHROMBIN TIME (PT)2021-06-15 00:00:00 Test Item Value Reference Range Interpretation Comments PROTHROMBIN TIME (PT) (test code 12.5 SECONDS = 1402) INR (test code = 28523) 0.9 CBC W/AUTO [id number] 00:00:00 Test Item Value Reference Range Interpretation [...] NUCLEATED RBCS (test code = 0.00 K/UL 44288) CBC W/AUTO [id number] 00:00:00 Test Item Value Reference Range Interpretation [...] NUCLEATED RBCS (test code = 0.00 K/UL 15145) PROTHROMBIN TIME (PT)2021-06-15 00:00:00 Test Item Value Reference Range Interpretation Comments PROTHROMBIN TIME (PT) (test code 12.5 SECONDS = 1402) INR (test code = 77938) 0.9 CBC W/AUTO [id number] 00:00:00 Test Item Value Reference Range Interpretation [...] NUCLEATED RBCS (test code = 0.00 K/UL 55112) HEMOGLOBIN [id number] 00:00:00 Test Item Value Reference Range Interpretation Comments HEMOGLOBIN A1c (test code = 35554) 6.4 % HEMOGLOBIN [id number] 00:00:00 Test Item Value Reference Range Interpretation Comments HEMOGLOBIN A1c (test code = 73197) 6.4 % HEMOGLOBIN [id number] 00:00:00 Test Item Value Reference Range Interpretation Comments HEMOGLOBIN A1c (test code = 48426) 6.4 % [id number] 00:00:00 Test Item Value Reference Range Interpretation Comments PTT (test code = 1403) 31.0 SECONDS [id number] 00:00:00 Test Item Value Reference Range Interpretation Comments PTT (test code = 1403) 31.0 SECONDS BASIC METABOLIC [id number] 00:00:00 Test Item Value Reference Range Interpretation Comments GLUCOSE (test code = 2217) 103 MG/DL BUN (test code = 2208) 18 MG/DL CREATININE (test code = 2214) 0.56 MG/DL eGFR AMER. (test code 114 ML/MIN/1.73 = 03306) eGFR NON- AMER. (test 99 ML/MIN/1.73 code = 65593) SODIUM (test code = 2231) 141 MEQ/L POTASSIUM (test code = 2228) 4.1 MEQ/L CHLORIDE (test code = 2215) 103 MEQ/L CARBON DIOXIDE (test code = 26 MEQ/L 2206) CALCIUM (test code = 2209) 9.6 MG/DL [id number] 00:00:00 Test Item Value Reference Range Interpretation Comments PTT (test code = 1403) 31.0 SECONDS PROTHROMBIN TIME (PT)2021-06-15 00:00:00 Test Item Value Reference Range Interpretation Comments PROTHROMBIN TIME (PT) (test code 12.5 SECONDS = 1402) INR (test code = 83087) 0.9 CBC W/AUTO [id number] 00:00:00 Test Item Value Reference Range Interpretation [...] NUCLEATED RBCS (test code = 0.00 K/UL 22990) CBC W/AUTO [id number] 00:00:00 Test Item Value Reference Range Interpretation [...] NUCLEATED RBCS (test code = 0.00 K/UL 93873) HEMOGLOBIN [id number] 00:00:00 Test Item Value Reference Range Interpretation Comments HEMOGLOBIN A1c (test code = 86879) 6.4 % HEMOGLOBIN [id number] 00:00:00 Test Item Value Reference Range Interpretation Comments HEMOGLOBIN A1c (test code = 69146) 6.4 % [id number] 00:00:00 Test Item Value Reference Range Interpretation Comments PTT (test code = 1403) 31.0 SECONDS [id number] 00:00:00 Test Item Value Reference Range Interpretation Comments PTT (test code = 1403) 31.0 SECONDS [id number] 00:00:00 Test Item Value Reference Range Interpretation Comments PTT (test code = 1403) 31.0 SECONDS [id number] 00:00:00 Test Item Value Reference Range Interpretation Comments PTT (test code = 1403) 31.0 SECONDS BASIC METABOLIC [id number] 00:00:00 Test Item Value Reference Range Interpretation Comments GLUCOSE (test code = 2217) 103 MG/DL BUN (test code = 2208) 18 MG/DL CREATININE (test code = 2214) 0.56 MG/DL eGFR AMER. (test code 114 ML/MIN/1.73 = 17176) eGFR NON- AMER. (test 99 ML/MIN/1.73 code = 55489) SODIUM (test code = 2231) 141 MEQ/L POTASSIUM (test code = 2228) 4.1 MEQ/L CHLORIDE (test code = 2215) 103 MEQ/L CARBON DIOXIDE (test code = 26 MEQ/L 2206) CALCIUM (test code = 2209) 9.6 MG/DL BASIC METABOLIC [id number] 00:00:00 Test Item Value Reference Range Interpretation Comments GLUCOSE (test code = 2217) 103 MG/DL BUN (test code = 2208) 18 MG/DL CREATININE (test code = 2214) 0.56 MG/DL eGFR AMER. (test code 114 ML/MIN/1.73 = 10069) eGFR NON- AMER. (test 99 ML/MIN/1.73 code = 23617) SODIUM (test code = 2231) 141 MEQ/L POTASSIUM (test code = 2228) 4.1 MEQ/L CHLORIDE (test code = 2215) 103 MEQ/L CARBON DIOXIDE (test code = 26 MEQ/L 2206) CALCIUM (test code = 2209) 9.6 MG/DL CBC W/AUTO [id number] 00:00:00 Test Item Value Reference Range Interpretation [...] NUCLEATED RBCS (test code = 0.00 K/UL 24546) PROTHROMBIN TIME (PT)2021-06-15 00:00:00 Test Item Value Reference Range Interpretation Comments PROTHROMBIN TIME (PT) (test code 12.5 SECONDS = 1402) INR (test code = 40299) 0.9 CBC W/AUTO [id number] 00:00:00 Test Item Value Reference Range Interpretation [...] NUCLEATED RBCS (test code = 0.00 K/UL 22960) PROTHROMBIN TIME (PT)2021-06-15 00:00:00 Test Item Value Reference Range Interpretation Comments PROTHROMBIN TIME (PT) (test code 12.5 SECONDS = 1402) INR (test code = 56980) 0.9 CBC W/AUTO [id number] 00:00:00 Test Item Value Reference Range Interpretation [...] NUCLEATED RBCS (test code = 0.00 K/UL 97284) HEMOGLOBIN [id number] 00:00:00 Test Item Value Reference Range Interpretation Comments HEMOGLOBIN A1c (test code = 03515) 6.4 % HEMOGLOBIN [id number] 00:00:00 Test Item Value Reference Range Interpretation Comments HEMOGLOBIN A1c (test code = 28699) 6.4 % HEMOGLOBIN [id number] 00:00:00 Test Item Value Reference Range Interpretation Comments HEMOGLOBIN A1c (test code = 78381) 6.4 % [id number] 00:00:00 Test Item Value Reference Range Interpretation Comments PTT (test code = 1403) 31.0 SECONDS [id number] 00:00:00 Test Item Value Reference Range Interpretation Comments PTT (test code = 1403) 31.0 SECONDS [id number] 00:00:00 Test Item Value Reference Range Interpretation Comments PTT (test code = 1403) 31.0 SECONDS BASIC METABOLIC [id number] 00:00:00 Test Item Value Reference Range Interpretation Comments GLUCOSE (test code = 2217) 103 MG/DL BUN (test code = 2208) 18 MG/DL CREATININE (test code = 2214) 0.56 MG/DL eGFR AMER. (test code 114 ML/MIN/1.73 = 50812) eGFR NON- AMER. (test 99 ML/MIN/1.73 code = 66429) SODIUM (test code = 2231) 141 MEQ/L POTASSIUM (test code = 2228) 4.1 MEQ/L CHLORIDE (test code = 2215) 103 MEQ/L CARBON DIOXIDE (test code = 26 MEQ/L 2206) CALCIUM (test code = 2209) 9.6 MG/DL BASIC METABOLIC [id number] 00:00:00 Test Item Value Reference Range Interpretation Comments GLUCOSE (test code = 2217) 103 MG/DL BUN (test code = 2208) 18 MG/DL CREATININE (test code = 2214) 0.56 MG/DL eGFR AMER. (test code 114 ML/MIN/1.73 = 88352) eGFR NON- AMER. (test 99 ML/MIN/1.73 code = 20210) SODIUM (test code = 2231) 141 MEQ/L POTASSIUM (test code = 2228) 4.1 MEQ/L CHLORIDE (test code = 2215) 103 MEQ/L CARBON DIOXIDE (test code = 26 MEQ/L 2206) CALCIUM (test code = 2209) 9.6 MG/DL [id number] 00:00:00 Test Item Value Reference Range Interpretation Comments PTT (test code = 1403) 31.0 SECONDS PROTHROMBIN TIME (PT)2021-06-15 00:00:00 Test Item Value Reference Range Interpretation Comments PROTHROMBIN TIME (PT) (test code 12.5 SECONDS = 1402) INR (test code = 09250) 0.9 CBC W/AUTO [id number] 00:00:00 Test Item Value Reference Range Interpretation [...] NUCLEATED RBCS (test code = 0.00 K/UL 02566) PROTHROMBIN TIME (PT)2021-06-15 00:00:00 Test Item Value Reference Range Interpretation Comments PROTHROMBIN TIME (PT) (test code 12.5 SECONDS = 1402) INR (test code = 92130) 0.9 CBC W/AUTO [id number] 00:00:00 Test Item Value Reference Range Interpretation [...] NUCLEATED RBCS (test code = 0.00 K/UL 14095) CBC W/AUTO [id number] 00:00:00 Test Item Value Reference Range Interpretation [...] NUCLEATED RBCS (test code = 0.00 K/UL 71029) HEMOGLOBIN [id number] 00:00:00 Test Item Value Reference Range Interpretation Comments HEMOGLOBIN A1c (test code = 13768) 6.4 % HEMOGLOBIN [id number] 00:00:00 Test Item Value Reference Range Interpretation Comments HEMOGLOBIN A1c (test code = 47348) 6.4 % HEMOGLOBIN [id number] 00:00:00 Test Item Value Reference Range Interpretation Comments HEMOGLOBIN A1c (test code = 07075) 6.4 % [id number] 00:00:00 Test Item Value Reference Range Interpretation Comments PTT (test code = 1403) 31.0 SECONDS [id number] 00:00:00 Test Item Value Reference Range Interpretation Comments PTT (test code = 1403) 31.0 SECONDS HEMOGLOBIN [id number] 00:00:00 Test Item Value Reference Range Interpretation Comments HEMOGLOBIN A1c (test code = 11520) 6.2 % HEMOGLOBIN [id number] 00:00:00 Test Item Value Reference Range Interpretation Comments HEMOGLOBIN A1c (test code = 18311) 6.2 % HEMOGLOBIN [id number] 00:00:00 Test Item Value Reference Range Interpretation Comments HEMOGLOBIN A1c (test code = 64567) 6.2 % HEMOGLOBIN [id number] 00:00:00 Test Item Value Reference Range Interpretation Comments HEMOGLOBIN A1c (test code = 31877) 6.2 % LIPID [id number] 00:00:00 Test Item Value Reference Range Interpretation Comments CHOLESTEROL (test code = 2210) 127 MG/DL TRIGLYCERIDES (test code = 2232) 124 MG/DL HDL CHOLESTEROL (test code = 2220) 56 MG/DL CALC LDL CHOL (test code = 2237) 50 MG/DL RISK RATIO LDL/HDL (test code = 0.89 RATIO 2238) LIPID [id number] 00:00:00 Test Item Value Reference Range Interpretation Comments CHOLESTEROL (test code = 2210) 127 MG/DL TRIGLYCERIDES (test code = 2232) 124 MG/DL HDL CHOLESTEROL (test code = 2220) 56 MG/DL CALC LDL CHOL (test code = 2237) 50 MG/DL RISK RATIO LDL/HDL (test code = 0.89 RATIO 2238) COMPREHENSIVE METABOLIC [id number] 00:00:00 Test Item Value Reference Range Interpretation Comments GLUCOSE (test code = 2217) 115 MG/DL BUN (test code = 2208) 11 MG/DL CREATININE (test code = 2214) 0.57 MG/DL eGFR AMER. (test code 114 ML/MIN/1.73 = 18502) eGFR NON- AMER. (test 98 ML/MIN/1.73 code = 01335) CALC BUN/CREAT (test code = 19 RATIO [...] code = 2219) 14 U/L COMPREHENSIVE METABOLIC [id number] 00:00:00 Test Item Value Reference Range Interpretation Comments GLUCOSE (test code = 2217) 115 MG/DL BUN (test code = 2208) 11 MG/DL CREATININE (test code = 2214) 0.57 MG/DL eGFR AMER. (test code 114 ML/MIN/1.73 = 58517) eGFR NON- AMER. (test 98 ML/MIN/1.73 code = 64789) CALC BUN/CREAT (test code = 19 RATIO [...] (test code = 2219) 14 U/L LIPID [id number] 00:00:00 Test Item Value Reference Range Interpretation Comments CHOLESTEROL (test code = 2210) 127 MG/DL TRIGLYCERIDES (test code = 2232) 124 MG/DL HDL CHOLESTEROL (test code = 2220) 56 MG/DL CALC LDL CHOL (test code = 2237) 50 MG/DL RISK RATIO LDL/HDL (test code = 0.89 RATIO 2238) COMPREHENSIVE METABOLIC [id number] 00:00:00 Test Item Value Reference Range Interpretation Comments GLUCOSE (test code = 2217) 115 MG/DL BUN (test code = 2208) 11 MG/DL CREATININE (test code = 2214) 0.57 MG/DL eGFR AMER. (test code 114 ML/MIN/1.73 = 26132) eGFR NON- AMER. (test 98 ML/MIN/1.73 code = 55990) CALC BUN/CREAT (test code = 19 RATIO [...] (test code = 2219) 14 U/L HEMOGLOBIN [id number] 00:00:00 Test Item Value Reference Range Interpretation Comments HEMOGLOBIN A1c (test code = 22956) 6.2 % HEMOGLOBIN [id number] 00:00:00 Test Item Value Reference Range Interpretation Comments HEMOGLOBIN A1c (test code = 82128) 6.2 % HEMOGLOBIN [id number] 00:00:00 Test Item Value Reference Range Interpretation Comments HEMOGLOBIN A1c (test code = 03165) 6.2 % LIPID [id number] 00:00:00 Test Item Value Reference Range Interpretation Comments CHOLESTEROL (test code = 2210) 127 MG/DL TRIGLYCERIDES (test code = 2232) 124 MG/DL HDL CHOLESTEROL (test code = 2220) 56 MG/DL CALC LDL CHOL (test code = 2237) 50 MG/DL RISK RATIO LDL/HDL (test code = 0.89 RATIO 2238) LIPID [id number] 00:00:00 Test Item Value Reference Range Interpretation Comments CHOLESTEROL (test code = 2210) 127 MG/DL TRIGLYCERIDES (test code = 2232) 124 MG/DL HDL CHOLESTEROL (test code = 2220) 56 MG/DL CALC LDL CHOL (test code = 2237) 50 MG/DL RISK RATIO LDL/HDL (test code = 0.89 RATIO 2238) COMPREHENSIVE METABOLIC [id number] 00:00:00 Test Item Value Reference Range Interpretation Comments GLUCOSE (test code = 2217) 115 MG/DL BUN (test code = 2208) 11 MG/DL CREATININE (test code = 2214) 0.57 MG/DL eGFR AMER. (test code 114 ML/MIN/1.73 = 38640) eGFR NON- AMER. (test 98 ML/MIN/1.73 code = 75698) CALC BUN/CREAT (test code = 19 RATIO [...] code = 2219) 14 U/L COMPREHENSIVE METABOLIC [id number] 00:00:00 Test Item Value Reference Range Interpretation Comments GLUCOSE (test code = 2217) 115 MG/DL BUN (test code = 2208) 11 MG/DL CREATININE (test code = 2214) 0.57 MG/DL eGFR AMER. (test code 114 ML/MIN/1.73 = 97944) eGFR NON- AMER. (test 98 ML/MIN/1.73 code = 02471) CALC BUN/CREAT (test code = 19 RATIO [...] (test code = 2219) 14 U/L HEMOGLOBIN [id number] 00:00:00 Test Item Value Reference Range Interpretation Comments HEMOGLOBIN A1c (test code = 40610) 6.2 % HEMOGLOBIN [id number] 00:00:00 Test Item Value Reference Range Interpretation Comments HEMOGLOBIN A1c (test code = 44235) 6.2 % HEMOGLOBIN [id number] 00:00:00 Test Item Value Reference Range Interpretation Comments HEMOGLOBIN A1c (test code = 14836) 6.2 % LIPID [id number] 00:00:00 Test Item Value Reference Range Interpretation Comments CHOLESTEROL (test code = 2210) 127 MG/DL TRIGLYCERIDES (test code = 2232) 124 MG/DL HDL CHOLESTEROL (test code = 2220) 56 MG/DL CALC LDL CHOL (test code = 2237) 50 MG/DL RISK RATIO LDL/HDL (test code = 0.89 RATIO 2238) LIPID [id number] 00:00:00 Test Item Value Reference Range Interpretation Comments CHOLESTEROL (test code = 2210) 127 MG/DL TRIGLYCERIDES (test code = 2232) 124 MG/DL HDL CHOLESTEROL (test code = 2220) 56 MG/DL CALC LDL CHOL (test code = 2237) 50 MG/DL RISK RATIO LDL/HDL (test code = 0.89 RATIO 2238) COMPREHENSIVE METABOLIC [id number] 00:00:00 Test Item Value Reference Range Interpretation Comments GLUCOSE (test code = 2217) 115 MG/DL BUN (test code = 2208) 11 MG/DL CREATININE (test code = 2214) 0.57 MG/DL eGFR AMER. (test code 114 ML/MIN/1.73 = 95676) eGFR NON- AMER. (test 98 ML/MIN/1.73 code = 69112) CALC BUN/CREAT (test code = 19 RATIO [...] code = 2219) 14 U/L COMPREHENSIVE METABOLIC [id number] 00:00:00 Test Item Value Reference Range Interpretation Comments GLUCOSE (test code = 2217) 115 MG/DL BUN (test code = 2208) 11 MG/DL CREATININE (test code = 2214) 0.57 MG/DL eGFR AMER. (test code 114 ML/MIN/1.73 = 43709) eGFR NON- AMER. (test 98 ML/MIN/1.73 code = 00311) CALC BUN/CREAT (test code = 19 RATIO [...] (test code = 2219) 14 U/L HEMOGLOBIN [id number] 00:00:00 Test Item Value Reference Range Interpretation Comments HEMOGLOBIN A1c (test code = 65804) 6.2 % HEMOGLOBIN [id number] 00:00:00 Test Item Value Reference Range Interpretation Comments HEMOGLOBIN A1c (test code = 99954) 6.2 % LIPID [id number] 00:00:00 Test Item Value Reference Range Interpretation Comments CHOLESTEROL (test code = 2210) 127 MG/DL TRIGLYCERIDES (test code = 2232) 124 MG/DL HDL CHOLESTEROL (test code = 2220) 56 MG/DL CALC LDL CHOL (test code = 2237) 50 MG/DL RISK RATIO LDL/HDL (test code = 0.89 RATIO 2238) COMPREHENSIVE METABOLIC [id number] 00:00:00 Test Item Value Reference Range Interpretation Comments GLUCOSE (test code = 2217) 115 MG/DL BUN (test code = 2208) 11 MG/DL CREATININE (test code = 2214) 0.57 MG/DL eGFR AMER. (test code 114 ML/MIN/1.73 = 51450) eGFR NON- AMER. (test 98 ML/MIN/1.73 code = 46758) CALC BUN/CREAT (test code = 19 RATIO [...] (test code = 2219) 14 U/L HEMOGLOBIN [id number] 00:00:00 Test Item Value Reference Range Interpretation Comments HEMOGLOBIN A1c (test code = 51923) 6.2 % HEMOGLOBIN [id number] 00:00:00 Test Item Value Reference Range Interpretation Comments HEMOGLOBIN A1c (test code = 41428) 6.2 % HEMOGLOBIN [id number] 00:00:00 Test Item Value Reference Range Interpretation Comments HEMOGLOBIN A1c (test code = 94376) 6.2 % LIPID [id number] 00:00:00 Test Item Value Reference Range Interpretation Comments CHOLESTEROL (test code = 2210) 127 MG/DL TRIGLYCERIDES (test code = 2232) 124 MG/DL HDL CHOLESTEROL (test code = 2220) 56 MG/DL CALC LDL CHOL (test code = 2237) 50 MG/DL RISK RATIO LDL/HDL (test code = 0.89 RATIO 2238) LIPID [id number] 00:00:00 Test Item Value Reference Range Interpretation Comments CHOLESTEROL (test code = 2210) 127 MG/DL TRIGLYCERIDES (test code = 2232) 124 MG/DL HDL CHOLESTEROL (test code = 2220) 56 MG/DL CALC LDL CHOL (test code = 2237) 50 MG/DL RISK RATIO LDL/HDL (test code = 0.89 RATIO 2238) COMPREHENSIVE METABOLIC [id number] 00:00:00 Test Item Value Reference Range Interpretation Comments GLUCOSE (test code = 2217) 115 MG/DL BUN (test code = 2208) 11 MG/DL CREATININE (test code = 2214) 0.57 MG/DL eGFR AMER. (test code 114 ML/MIN/1.73 = 33433) eGFR NON- AMER. (test 98 ML/MIN/1.73 code = 64957) CALC BUN/CREAT (test code = 19 RATIO [...] code = 2219) 14 U/L COMPREHENSIVE METABOLIC [id number] 00:00:00 Test Item Value Reference Range Interpretation Comments GLUCOSE (test code = 2217) 115 MG/DL BUN (test code = 2208) 11 MG/DL CREATININE (test code = 2214) 0.57 MG/DL eGFR AMER. (test code 114 ML/MIN/1.73 = 89680) eGFR NON- AMER. (test 98 ML/MIN/1.73 code = 58227) CALC BUN/CREAT (test code = 19 RATIO [...] (test code = 2219) 14 U/L HEMOGLOBIN [id number] 00:00:00 Test Item Value Reference Range Interpretation Comments HEMOGLOBIN A1c (test code = 41371) 6.2 % HEMOGLOBIN [id number] 00:00:00 Test Item Value Reference Range Interpretation Comments HEMOGLOBIN A1c (test code = 96491) 6.2 % HEMOGLOBIN [id number] 00:00:00 Test Item Value Reference Range Interpretation Comments HEMOGLOBIN A1c (test code = 97145) 6.2 % LIPID [id number] 00:00:00 Test Item Value Reference Range Interpretation Comments CHOLESTEROL (test code = 2210) 127 MG/DL TRIGLYCERIDES (test code = 2232) 124 MG/DL HDL CHOLESTEROL (test code = 2220) 56 MG/DL CALC LDL CHOL (test code = 2237) 50 MG/DL RISK RATIO LDL/HDL (test code = 0.89 RATIO 2238) LIPID [id number] 00:00:00 Test Item Value Reference Range Interpretation Comments CHOLESTEROL (test code = 2210) 127 MG/DL TRIGLYCERIDES (test code = 2232) 124 MG/DL HDL CHOLESTEROL (test code = 2220) 56 MG/DL CALC LDL CHOL (test code = 2237) 50 MG/DL RISK RATIO LDL/HDL (test code = 0.89 RATIO 2238) COMPREHENSIVE METABOLIC [id number] 00:00:00 Test Item Value Reference Range Interpretation Comments GLUCOSE (test code = 2217) 115 MG/DL BUN (test code = 2208) 11 MG/DL CREATININE (test code = 2214) 0.57 MG/DL eGFR AMER. (test code 114 ML/MIN/1.73 = 75406) eGFR NON- AMER. (test 98 ML/MIN/1.73 code = 14977) CALC BUN/CREAT (test code = 19 RATIO [...] code = 2219) 14 U/L COMPREHENSIVE METABOLIC [id number] 00:00:00 Test Item Value Reference Range Interpretation Comments GLUCOSE (test code = 2217) 115 MG/DL BUN (test code = 2208) 11 MG/DL CREATININE (test code = 2214) 0.57 MG/DL eGFR AMER. (test code 114 ML/MIN/1.73 = 96872) eGFR NON- AMER. (test 98 ML/MIN/1.73 code = 55702) CALC BUN/CREAT (test code = 19 RATIO [...] (test code = 2219) 14 U/L HEMOGLOBIN [id number] 00:00:00 Test Item Value Reference Range Interpretation Comments HEMOGLOBIN A1c (test code = 45989) 6.2 % LIPID PANEL [ADDED]2020-11-12 00:00:00 Test [...] eGFR AMER. (test code 111 ML/MIN/1.73 = 56011) eGFR NON- AMER. (test 95 ML/MIN/1.73 code = 08842) CALC BUN/CREAT (test code = 32 RATIO [...] eGFR AMER. (test code 111 ML/MIN/1.73 = 25615) eGFR NON- AMER. (test 95 ML/MIN/1.73 code = 58361) CALC BUN/CREAT (test code = 32 RATIO [...] eGFR AMER. (test code 111 ML/MIN/1.73 = 69525) eGFR NON- AMER. (test 95 ML/MIN/1.73 code = 24838) CALC BUN/CREAT (test code = 32 RATIO [...] eGFR AMER. (test code 111 ML/MIN/1.73 = 21895) eGFR NON- AMER. (test 95 ML/MIN/1.73 code = 68898) CALC BUN/CREAT (test code = 32 RATIO [...] eGFR AMER. (test code 111 ML/MIN/1.73 = 64565) eGFR NON- AMER. (test 95 ML/MIN/1.73 code = 52756) CALC BUN/CREAT (test code = 32 RATIO [...] eGFR AMER. (test code 111 ML/MIN/1.73 = 91792) eGFR NON- AMER. (test 95 ML/MIN/1.73 code = 19916) CALC BUN/CREAT (test code = 32 RATIO [...] eGFR AMER. (test code 111 ML/MIN/1.73 = 12394) eGFR NON- AMER. (test 95 ML/MIN/1.73 code = 50225) CALC BUN/CREAT (test code = 32 RATIO [...] eGFR AMER. (test code 111 ML/MIN/1.73 = 23444) eGFR NON- AMER. (test 95 ML/MIN/1.73 code = 43317) CALC BUN/CREAT (test code = 32 RATIO [...] eGFR AMER. (test code 111 ML/MIN/1.73 = 00487) eGFR NON- AMER. (test 95 ML/MIN/1.73 code = 83233) CALC BUN/CREAT (test code = 32 RATIO [...] eGFR AMER. (test code 111 ML/MIN/1.73 = 48822) eGFR NON- AMER. (test 95 ML/MIN/1.73 code = 51806) CALC BUN/CREAT (test code = 32 RATIO [...] eGFR AMER. (test code 111 ML/MIN/1.73 = 25851) eGFR NON- AMER. (test 95 ML/MIN/1.73 code = 77975) CALC BUN/CREAT (test code = 32 RATIO [...] eGFR AMER. (test code 111 ML/MIN/1.73 = 62212) eGFR NON- AMER. (test 95 ML/MIN/1.73 code = 67011) CALC BUN/CREAT (test code = 32 RATIO [...] Interpretation Comments HEMOGLOBIN A1c (test code = 46881) 6.5 % CBC W/AUTO DIFF WITH PLATELETS [...] Interpretation Comments HEMOGLOBIN A1c (test code = 29468) 6.5 % HEMOGLOBIN A1c [ADDED]2020-11-10 00:00:00 Test Item Value Reference Range Interpretation Comments HEMOGLOBIN A1c (test code = 60813) 6.5 % HEMOGLOBIN A1c [ADDED]2020-11-10 00:00:00 Test Item Value Reference Range Interpretation Comments HEMOGLOBIN A1c (test code = 31254) 6.5 % HEMOGLOBIN A1c [ADDED]2020-11-10 00:00:00 Test Item Value Reference Range Interpretation Comments HEMOGLOBIN A1c (test code = 47157) 6.5 % CBC W/AUTO DIFF WITH PLATELETS [...] Interpretation Comments HEMOGLOBIN A1c (test code = 36702) 6.5 % HEMOGLOBIN A1c [ADDED]2020-11-10 00:00:00 Test Item Value Reference Range Interpretation Comments HEMOGLOBIN A1c (test code = 24416) 6.5 % HEMOGLOBIN A1c [ADDED]2020-11-10 00:00:00 Test Item Value Reference Range Interpretation Comments HEMOGLOBIN A1c (test code = 92126) 6.5 % CBC W/AUTO DIFF WITH PLATELETS [...] Interpretation Comments HEMOGLOBIN A1c (test code = 12886) 6.5 % HEMOGLOBIN A1c [ADDED]2020-11-10 00:00:00 Test Item Value Reference Range Interpretation Comments HEMOGLOBIN A1c (test code = 24596) 6.5 % HEMOGLOBIN A1c [ADDED]2020-11-10 00:00:00 Test Item Value Reference Range Interpretation Comments HEMOGLOBIN A1c (test code = 29108) 6.5 % CBC W/AUTO DIFF WITH PLATELETS [...] Interpretation Comments HEMOGLOBIN A1c (test code = 85022) 6.5 % HEMOGLOBIN A1c [ADDED]2020-11-10 00:00:00 Test Item Value Reference Range Interpretation Comments HEMOGLOBIN A1c (test code = 26851) 6.5 % CBC W/AUTO DIFF WITH PLATELETS [...] Interpretation Comments HEMOGLOBIN A1c (test code = 50339) 6.5 % HEMOGLOBIN A1c [ADDED]2020-11-10 00:00:00 Test Item Value Reference Range Interpretation Comments HEMOGLOBIN A1c (test code = 84921) 6.5 % HEMOGLOBIN A1c [ADDED]2020-11-10 00:00:00 Test Item Value Reference Range Interpretation Comments HEMOGLOBIN A1c (test code = 15321) 6.5 % CBC W/AUTO DIFF WITH PLATELETS [...] Interpretation Comments HEMOGLOBIN A1c (test code = 00807) 6.5 % HEMOGLOBIN A1c [ADDED]2020-11-10 00:00:00 Test Item Value Reference Range Interpretation Comments HEMOGLOBIN A1c (test code = 88862) 6.5 % HEMOGLOBIN A1c [ADDED]2020-11-10 00:00:00 Test Item Value Reference Range Interpretation Comments HEMOGLOBIN A1c (test code = 70026) 6.5 % CBC W/AUTO DIFF WITH PLATELETS [...] code = 1015) 264 K/UL COMPREHENSIVE METABOLIC [id number] 00:00:00 Test Item Value Reference Range Interpretation Comments GLUCOSE (test code = 2217) 174 MG/DL BUN (test code = 2208) 15 MG/DL CREATININE (test code = 2214) 0.70 MG/DL eGFR AMER. (test code 108 ML/MIN/1.73 = 70262) eGFR NON- AMER. (test 93 ML/MIN/1.73 code = 25877) CALC BUN/CREAT (test code = 21 RATIO [...] code = 2219) 12 U/L COMPREHENSIVE METABOLIC [id number] 00:00:00 Test Item Value Reference Range Interpretation Comments GLUCOSE (test code = 2217) 174 MG/DL BUN (test code = 2208) 15 MG/DL CREATININE (test code = 2214) 0.70 MG/DL eGFR AMER. (test code 108 ML/MIN/1.73 = 36368) eGFR NON- AMER. (test 93 ML/MIN/1.73 code = 15547) CALC BUN/CREAT (test code = 21 RATIO [...] (test code = 2219) 12 U/L HEMOGLOBIN [id number] 00:00:00 Test Item Value Reference Range Interpretation Comments HEMOGLOBIN A1c (test code = 36095) 5.9 % HEMOGLOBIN [id number] 00:00:00 Test Item Value Reference Range Interpretation Comments HEMOGLOBIN A1c (test code = 66487) 5.9 % HEMOGLOBIN [id number] 00:00:00 Test Item Value Reference Range Interpretation Comments HEMOGLOBIN A1c (test code = 26071) 5.9 % HEMOGLOBIN [id number] 00:00:00 Test Item Value Reference Range Interpretation Comments HEMOGLOBIN A1c (test code = 02451) 5.9 % HEMOGLOBIN [id number] 00:00:00 Test Item Value Reference Range Interpretation Comments HEMOGLOBIN A1c (test code = 58558) 5.9 % COMPREHENSIVE METABOLIC [id number] 00:00:00 Test Item Value Reference Range Interpretation Comments GLUCOSE (test code = 2217) 174 MG/DL BUN (test code = 2208) 15 MG/DL CREATININE (test code = 2214) 0.70 MG/DL eGFR AMER. (test code 108 ML/MIN/1.73 = 20266) eGFR NON- AMER. (test 93 ML/MIN/1.73 code = 00027) CALC BUN/CREAT (test code = 21 RATIO [...] code = 2219) 12 U/L COMPREHENSIVE METABOLIC [id number] 00:00:00 Test Item Value Reference Range Interpretation Comments GLUCOSE (test code = 2217) 174 MG/DL BUN (test code = 2208) 15 MG/DL CREATININE (test code = 2214) 0.70 MG/DL eGFR AMER. (test code 108 ML/MIN/1.73 = 06360) eGFR NON- AMER. (test 93 ML/MIN/1.73 code = 09027) CALC BUN/CREAT (test code = 21 RATIO [...] (test code = 2219) 12 U/L HEMOGLOBIN [id number] 00:00:00 Test Item Value Reference Range Interpretation Comments HEMOGLOBIN A1c (test code = 07150) 5.9 % HEMOGLOBIN [id number] 00:00:00 Test Item Value Reference Range Interpretation Comments HEMOGLOBIN A1c (test code = 56461) 5.9 % HEMOGLOBIN [id number] 00:00:00 Test Item Value Reference Range Interpretation Comments HEMOGLOBIN A1c (test code = 36935) 5.9 % COMPREHENSIVE METABOLIC [id number] 00:00:00 Test Item Value Reference Range Interpretation Comments GLUCOSE (test code = 2217) 174 MG/DL BUN (test code = 2208) 15 MG/DL CREATININE (test code = 2214) 0.70 MG/DL eGFR AMER. (test code 108 ML/MIN/1.73 = 84518) eGFR NON- AMER. (test 93 ML/MIN/1.73 code = 25545) CALC BUN/CREAT (test code = 21 RATIO [...] code = 2219) 12 U/L COMPREHENSIVE METABOLIC [id number] 00:00:00 Test Item Value Reference Range Interpretation Comments GLUCOSE (test code = 2217) 174 MG/DL BUN (test code = 2208) 15 MG/DL CREATININE (test code = 2214) 0.70 MG/DL eGFR AMER. (test code 108 ML/MIN/1.73 = 95594) eGFR NON- AMER. (test 93 ML/MIN/1.73 code = 18057) CALC BUN/CREAT (test code = 21 RATIO [...] (test code = 2219) 12 U/L HEMOGLOBIN [id number] 00:00:00 Test Item Value Reference Range Interpretation Comments HEMOGLOBIN A1c (test code = 68268) 5.9 % HEMOGLOBIN [id number] 00:00:00 Test Item Value Reference Range Interpretation Comments HEMOGLOBIN A1c (test code = 17744) 5.9 % HEMOGLOBIN [id number] 00:00:00 Test Item Value Reference Range Interpretation Comments HEMOGLOBIN A1c (test code = 04072) 5.9 % COMPREHENSIVE METABOLIC [id number] 00:00:00 Test Item Value Reference Range Interpretation Comments GLUCOSE (test code = 2217) 174 MG/DL BUN (test code = 2208) 15 MG/DL CREATININE (test code = 2214) 0.70 MG/DL eGFR AMER. (test code 108 ML/MIN/1.73 = 06596) eGFR NON- AMER. (test 93 ML/MIN/1.73 code = 08673) CALC BUN/CREAT (test code = 21 RATIO [...] (test code = 2219) 12 U/L HEMOGLOBIN [id number] 00:00:00 Test Item Value Reference Range Interpretation Comments HEMOGLOBIN A1c (test code = 21942) 5.9 % HEMOGLOBIN [id number] 00:00:00 Test Item Value Reference Range Interpretation Comments HEMOGLOBIN A1c (test code = 15199) 5.9 % COMPREHENSIVE METABOLIC [id number] 00:00:00 Test Item Value Reference Range Interpretation Comments GLUCOSE (test code = 2217) 174 MG/DL BUN (test code = 2208) 15 MG/DL CREATININE (test code = 2214) 0.70 MG/DL eGFR AMER. (test code 108 ML/MIN/1.73 = 22201) eGFR NON- AMER. (test 93 ML/MIN/1.73 code = 95038) CALC BUN/CREAT (test code = 21 RATIO [...] code = 2219) 12 U/L COMPREHENSIVE METABOLIC [id number] 00:00:00 Test Item Value Reference Range Interpretation Comments GLUCOSE (test code = 2217) 174 MG/DL BUN (test code = 2208) 15 MG/DL CREATININE (test code = 2214) 0.70 MG/DL eGFR AMER. (test code 108 ML/MIN/1.73 = 43064) eGFR NON- AMER. (test 93 ML/MIN/1.73 code = 25145) CALC BUN/CREAT (test code = 21 RATIO [...] (test code = 2219) 12 U/L HEMOGLOBIN [id number] 00:00:00 Test Item Value Reference Range Interpretation Comments HEMOGLOBIN A1c (test code = 63889) 5.9 % HEMOGLOBIN [id number] 00:00:00 Test Item Value Reference Range Interpretation Comments HEMOGLOBIN A1c (test code = 38341) 5.9 % HEMOGLOBIN [id number] 00:00:00 Test Item Value Reference Range Interpretation Comments HEMOGLOBIN A1c (test code = 99095) 5.9 % COMPREHENSIVE METABOLIC [id number] 00:00:00 Test Item Value Reference Range Interpretation Comments GLUCOSE (test code = 2217) 174 MG/DL BUN (test code = 2208) 15 MG/DL CREATININE (test code = 2214) 0.70 MG/DL eGFR AMER. (test code 108 ML/MIN/1.73 = 20213) eGFR NON- AMER. (test 93 ML/MIN/1.73 code = 23956) CALC BUN/CREAT (test code = 21 RATIO [...] code = 2219) 12 U/L COMPREHENSIVE METABOLIC [id number] 00:00:00 Test Item Value Reference Range Interpretation Comments GLUCOSE (test code = 2217) 174 MG/DL BUN (test code = 2208) 15 MG/DL CREATININE (test code = 2214) 0.70 MG/DL eGFR AMER. (test code 108 ML/MIN/1.73 = 87475) eGFR NON- AMER. (test 93 ML/MIN/1.73 code = 95667) CALC BUN/CREAT (test code = 21 RATIO [...] (test code = 2219) 12 U/L HEMOGLOBIN [id number] 00:00:00 Test Item Value Reference Range Interpretation Comments HEMOGLOBIN A1c (test code = 36388) 5.9 % HEMOGLOBIN [id number] 00:00:00 Test Item Value Reference Range Interpretation Comments HEMOGLOBIN A1c (test code = 78186) 5.9 % HEMOGLOBIN [id number] 00:00:00 Test Item Value Reference Range Interpretation Comments HEMOGLOBIN A1c (test code = 66433) 5.9 % COMPREHENSIVE METABOLIC [id number] 00:00:00 Test Item Value Reference Range Interpretation Comments GLUCOSE (test code = 2217) 174 MG/DL BUN (test code = 2208) 15 MG/DL CREATININE (test code = 2214) 0.70 MG/DL eGFR AMER. (test code 108 ML/MIN/1.73 = 03575) eGFR NON- AMER. (test 93 ML/MIN/1.73 code = 95127) CALC BUN/CREAT (test code = 21 RATIO [...] code = 2219) 12 U/L COMPREHENSIVE METABOLIC [id number] 00:00:00 Test Item Value Reference Range Interpretation Comments GLUCOSE (test code = 2217) 102 MG/DL BUN (test code = 2208) 15 MG/DL CREATININE (test code = 2214) 1.00 MG/DL eGFR AMER. (test code 70 ML/MIN/1.73 = 62329) eGFR NON- AMER. (test 61 ML/MIN/1.73 code = 89681) CALC BUN/CREAT (test code = 15 RATIO [...] code = 2219) 13 U/L COMPREHENSIVE METABOLIC [id number] 00:00:00 Test Item Value Reference Range Interpretation Comments GLUCOSE (test code = 2217) 102 MG/DL BUN (test code = 2208) 15 MG/DL CREATININE (test code = 2214) 1.00 MG/DL eGFR AMER. (test code 70 ML/MIN/1.73 = 19548) eGFR NON- AMER. (test 61 ML/MIN/1.73 code = 39287) CALC BUN/CREAT (test code = 15 RATIO [...] code = 2219) 13 U/L COMPREHENSIVE METABOLIC [id number] 00:00:00 Test Item Value Reference Range Interpretation Comments GLUCOSE (test code = 2217) 102 MG/DL BUN (test code = 2208) 15 MG/DL CREATININE (test code = 2214) 1.00 MG/DL eGFR AMER. (test code 70 ML/MIN/1.73 = 70478) eGFR NON- AMER. (test 61 ML/MIN/1.73 code = 93759) CALC BUN/CREAT (test code = 15 RATIO [...] (test code = 2219) 13 U/L LIPID [id number] 00:00:00 Test Item Value Reference Range Interpretation Comments CHOLESTEROL (test code = 2210) 197 MG/DL TRIGLYCERIDES (test code = 2232) 151 MG/DL HDL CHOLESTEROL (test code = 2220) 55 MG/DL CALC LDL CHOL (test code = 2237) 112 MG/DL RISK RATIO LDL/HDL (test code = 2.03 RATIO 2238) LIPID [id number] 00:00:00 Test Item Value Reference Range Interpretation Comments CHOLESTEROL (test code = 2210) 197 MG/DL TRIGLYCERIDES (test code = 2232) 151 MG/DL HDL CHOLESTEROL (test code = 2220) 55 MG/DL CALC LDL CHOL (test code = 2237) 112 MG/DL RISK RATIO LDL/HDL (test code = 2.03 RATIO 2238) HEMOGLOBIN [id number] 00:00:00 Test Item Value Reference Range Interpretation Comments HEMOGLOBIN A1c (test code = 85077) 6.1 % HEMOGLOBIN [id number] 00:00:00 Test Item Value Reference Range Interpretation Comments HEMOGLOBIN A1c (test code = 67958) 6.1 % HEMOGLOBIN [id number] 00:00:00 Test Item Value Reference Range Interpretation Comments HEMOGLOBIN A1c (test code = 37251) 6.1 % LIPID [id number] 00:00:00 Test Item Value Reference Range Interpretation Comments CHOLESTEROL (test code = 2210) 197 MG/DL TRIGLYCERIDES (test code = 2232) 151 MG/DL HDL CHOLESTEROL (test code = 2220) 55 MG/DL CALC LDL CHOL (test code = 2237) 112 MG/DL RISK RATIO LDL/HDL (test code = 2.03 RATIO 2238) HEMOGLOBIN [id number] 00:00:00 Test Item Value Reference Range Interpretation Comments HEMOGLOBIN A1c (test code = 97768) 6.1 % HEMOGLOBIN [id number] 00:00:00 Test Item Value Reference Range Interpretation Comments HEMOGLOBIN A1c (test code = 27689) 6.1 % COMPREHENSIVE METABOLIC [id number] 00:00:00 Test Item Value Reference Range Interpretation Comments GLUCOSE (test code = 2217) 102 MG/DL BUN (test code = 2208) 15 MG/DL CREATININE (test code = 2214) 1.00 MG/DL eGFR AMER. (test code 70 ML/MIN/1.73 = 13211) eGFR NON- AMER. (test 61 ML/MIN/1.73 code = 75906) CALC BUN/CREAT (test code = 15 RATIO [...] code = 2219) 13 U/L COMPREHENSIVE METABOLIC [id number] 00:00:00 Test Item Value Reference Range Interpretation Comments GLUCOSE (test code = 2217) 102 MG/DL BUN (test code = 2208) 15 MG/DL CREATININE (test code = 2214) 1.00 MG/DL eGFR AMER. (test code 70 ML/MIN/1.73 = 51033) eGFR NON- AMER. (test 61 ML/MIN/1.73 code = 52281) CALC BUN/CREAT (test code = 15 RATIO [...] (test code = 2219) 13 U/L LIPID [id number] 00:00:00 Test Item Value Reference Range Interpretation Comments CHOLESTEROL (test code = 2210) 197 MG/DL TRIGLYCERIDES (test code = 2232) 151 MG/DL HDL CHOLESTEROL (test code = 2220) 55 MG/DL CALC LDL CHOL (test code = 2237) 112 MG/DL RISK RATIO LDL/HDL (test code = 2.03 RATIO 2238) LIPID [id number] 00:00:00 Test Item Value Reference Range Interpretation Comments CHOLESTEROL (test code = 2210) 197 MG/DL TRIGLYCERIDES (test code = 2232) 151 MG/DL HDL CHOLESTEROL (test code = 2220) 55 MG/DL CALC LDL CHOL (test code = 2237) 112 MG/DL RISK RATIO LDL/HDL (test code = 2.03 RATIO 2238) HEMOGLOBIN [id number] 00:00:00 Test Item Value Reference Range Interpretation Comments HEMOGLOBIN A1c (test code = 20451) 6.1 % HEMOGLOBIN [id number] 00:00:00 Test Item Value Reference Range Interpretation Comments HEMOGLOBIN A1c (test code = 32708) 6.1 % HEMOGLOBIN [id number] 00:00:00 Test Item Value Reference Range Interpretation Comments HEMOGLOBIN A1c (test code = 92378) 6.1 % COMPREHENSIVE METABOLIC [id number] 00:00:00 Test Item Value Reference Range Interpretation Comments GLUCOSE (test code = 2217) 102 MG/DL BUN (test code = 2208) 15 MG/DL CREATININE (test code = 2214) 1.00 MG/DL eGFR AMER. (test code 70 ML/MIN/1.73 = 33307) eGFR NON- AMER. (test 61 ML/MIN/1.73 code = 07916) CALC BUN/CREAT (test code = 15 RATIO [...] code = 2219) 13 U/L COMPREHENSIVE METABOLIC [id number] 00:00:00 Test Item Value Reference Range Interpretation Comments GLUCOSE (test code = 2217) 102 MG/DL BUN (test code = 2208) 15 MG/DL CREATININE (test code = 2214) 1.00 MG/DL eGFR AMER. (test code 70 ML/MIN/1.73 = 58936) eGFR NON- AMER. (test 61 ML/MIN/1.73 code = 87361) CALC BUN/CREAT (test code = 15 RATIO [...] (test code = 2219) 13 U/L LIPID [id number] 00:00:00 Test Item Value Reference Range Interpretation Comments CHOLESTEROL (test code = 2210) 197 MG/DL TRIGLYCERIDES (test code = 2232) 151 MG/DL HDL CHOLESTEROL (test code = 2220) 55 MG/DL CALC LDL CHOL (test code = 2237) 112 MG/DL RISK RATIO LDL/HDL (test code = 2.03 RATIO 2238) LIPID [id number] 00:00:00 Test Item Value Reference Range Interpretation Comments CHOLESTEROL (test code = 2210) 197 MG/DL TRIGLYCERIDES (test code = 2232) 151 MG/DL HDL CHOLESTEROL (test code = 2220) 55 MG/DL CALC LDL CHOL (test code = 2237) 112 MG/DL RISK RATIO LDL/HDL (test code = 2.03 RATIO 2238) HEMOGLOBIN [id number] 00:00:00 Test Item Value Reference Range Interpretation Comments HEMOGLOBIN A1c (test code = 87907) 6.1 % HEMOGLOBIN [id number] 00:00:00 Test Item Value Reference Range Interpretation Comments HEMOGLOBIN A1c (test code = 84167) 6.1 % HEMOGLOBIN [id number] 00:00:00 Test Item Value Reference Range Interpretation Comments HEMOGLOBIN A1c (test code = 83120) 6.1 % COMPREHENSIVE METABOLIC [id number] 00:00:00 Test Item Value Reference Range Interpretation Comments GLUCOSE (test code = 2217) 102 MG/DL BUN (test code = 2208) 15 MG/DL CREATININE (test code = 2214) 1.00 MG/DL eGFR AMER. (test code 70 ML/MIN/1.73 = 34526) eGFR NON- AMER. (test 61 ML/MIN/1.73 code = 76038) CALC BUN/CREAT (test code = 15 RATIO [...] (test code = 2219) 13 U/L LIPID [id number] 00:00:00 Test Item Value Reference Range Interpretation Comments CHOLESTEROL (test code = 2210) 197 MG/DL TRIGLYCERIDES (test code = 2232) 151 MG/DL HDL CHOLESTEROL (test code = 2220) 55 MG/DL CALC LDL CHOL (test code = 2237) 112 MG/DL RISK RATIO LDL/HDL (test code = 2.03 RATIO 2238) HEMOGLOBIN [id number] 00:00:00 Test Item Value Reference Range Interpretation Comments HEMOGLOBIN A1c (test code = 71710) 6.1 % HEMOGLOBIN [id number] 00:00:00 Test Item Value Reference Range Interpretation Comments HEMOGLOBIN A1c (test code = 73838) 6.1 % COMPREHENSIVE METABOLIC [id number] 00:00:00 Test Item Value Reference Range Interpretation Comments GLUCOSE (test code = 2217) 102 MG/DL BUN (test code = 2208) 15 MG/DL CREATININE (test code = 2214) 1.00 MG/DL eGFR AMER. (test code 70 ML/MIN/1.73 = 62973) eGFR NON- AMER. (test 61 ML/MIN/1.73 code = 88372) CALC BUN/CREAT (test code = 15 RATIO [...] code = 2219) 13 U/L COMPREHENSIVE METABOLIC [id number] 00:00:00 Test Item Value Reference Range Interpretation Comments GLUCOSE (test code = 2217) 102 MG/DL BUN (test code = 2208) 15 MG/DL CREATININE (test code = 2214) 1.00 MG/DL eGFR AMER. (test code 70 ML/MIN/1.73 = 45897) eGFR NON- AMER. (test 61 ML/MIN/1.73 code = 25597) CALC BUN/CREAT (test code = 15 RATIO [...] (test code = 2219) 13 U/L LIPID [id number] 00:00:00 Test Item Value Reference Range Interpretation Comments CHOLESTEROL (test code = 2210) 197 MG/DL TRIGLYCERIDES (test code = 2232) 151 MG/DL HDL CHOLESTEROL (test code = 2220) 55 MG/DL CALC LDL CHOL (test code = 2237) 112 MG/DL RISK RATIO LDL/HDL (test code = 2.03 RATIO 2238) LIPID [id number] 00:00:00 Test Item Value Reference Range Interpretation Comments CHOLESTEROL (test code = 2210) 197 MG/DL TRIGLYCERIDES (test code = 2232) 151 MG/DL HDL CHOLESTEROL (test code = 2220) 55 MG/DL CALC LDL CHOL (test code = 2237) 112 MG/DL RISK RATIO LDL/HDL (test code = 2.03 RATIO 2238) HEMOGLOBIN [id number] 00:00:00 Test Item Value Reference Range Interpretation Comments HEMOGLOBIN A1c (test code = 19427) 6.1 % HEMOGLOBIN [id number] 00:00:00 Test Item Value Reference Range Interpretation Comments HEMOGLOBIN A1c (test code = 59446) 6.1 % HEMOGLOBIN [id number] 00:00:00 Test Item Value Reference Range Interpretation Comments HEMOGLOBIN A1c (test code = 08051) 6.1 % COMPREHENSIVE METABOLIC [id number] 00:00:00 Test Item Value Reference Range Interpretation Comments GLUCOSE (test code = 2217) 102 MG/DL BUN (test code = 2208) 15 MG/DL CREATININE (test code = 2214) 1.00 MG/DL eGFR AMER. (test code 70 ML/MIN/1.73 = 79450) eGFR NON- AMER. (test 61 ML/MIN/1.73 code = 97049) CALC BUN/CREAT (test code = 15 RATIO [...] code = 2219) 13 U/L COMPREHENSIVE METABOLIC [id number] 00:00:00 Test Item Value Reference Range Interpretation Comments GLUCOSE (test code = 2217) 102 MG/DL BUN (test code = 2208) 15 MG/DL CREATININE (test code = 2214) 1.00 MG/DL eGFR AMER. (test code 70 ML/MIN/1.73 = 41261) eGFR NON- AMER. (test 61 ML/MIN/1.73 code = 40480) CALC BUN/CREAT (test code = 15 RATIO [...] (test code = 2219) 13 U/L LIPID [id number] 00:00:00 Test Item Value Reference Range Interpretation Comments CHOLESTEROL (test code = 2210) 197 MG/DL TRIGLYCERIDES (test code = 2232) 151 MG/DL HDL CHOLESTEROL (test code = 2220) 55 MG/DL CALC LDL CHOL (test code = 2237) 112 MG/DL RISK RATIO LDL/HDL (test code = 2.03 RATIO 2238) LIPID [id number] 00:00:00 Test Item Value Reference Range Interpretation Comments CHOLESTEROL (test code = 2210) 197 MG/DL TRIGLYCERIDES (test code = 2232) 151 MG/DL HDL CHOLESTEROL (test code = 2220) 55 MG/DL CALC LDL CHOL (test code = 2237) 112 MG/DL RISK RATIO LDL/HDL (test code = 2.03 RATIO 2238) HEMOGLOBIN [id number] 00:00:00 Test Item Value Reference Range Interpretation Comments HEMOGLOBIN A1c (test code = 22197) 6.1 % HEMOGLOBIN [id number] 00:00:00 Test Item Value Reference Range Interpretation Comments HEMOGLOBIN A1c (test code = 92833) 6.1 % HEMOGLOBIN [id number] 00:00:00 Test Item Value Reference Range Interpretation Comments HEMOGLOBIN A1c (test code = 19884) 6.1 % CULTURE, [id number] 00:00:00 Test Item Value Reference Range Interpretation Comments CULTURE, URINE (test SPECIMEN NUMBER: code = 53236) [id number] CULTURE, [id number] 00:00:00 Test Item Value Reference Range Interpretation Comments CULTURE, URINE (test SPECIMEN NUMBER: code = 29586) [id number] VAGINAL PATHOGENS DNA [id number] 00:00:00 Test Item Value Reference Range Interpretation Comments SIENA SPECIES (test code = 48689) NEGATIVE G. VAGINALIS (test code = 73437) NEGATIVE T. VAGINALIS (test code = 41500) NEGATIVE VAGINAL PATHOGENS DNA [id number] 00:00:00 Test Item Value Reference Range Interpretation Comments SIENA SPECIES (test code = 68158) NEGATIVE G. VAGINALIS (test code = 23115) NEGATIVE T. VAGINALIS (test code = 10207) NEGATIVE VAGINAL PATHOGENS DNA [id number] 00:00:00 Test Item Value Reference Range Interpretation Comments SIENA SPECIES (test code = 05633) NEGATIVE G. VAGINALIS (test code = 74741) NEGATIVE T. VAGINALIS (test code = 23940) NEGATIVE CULTURE, [id number] 00:00:00 Test Item Value Reference Range Interpretation Comments CULTURE, URINE (test SPECIMEN NUMBER: code = 56185) [id number] CULTURE, [id number] 00:00:00 Test Item Value Reference Range Interpretation Comments CULTURE, URINE (test SPECIMEN NUMBER: code = 84467) [id number] VAGINAL PATHOGENS DNA [id number] 00:00:00 Test Item Value Reference Range Interpretation Comments SIENA SPECIES (test code = 86941) NEGATIVE G. VAGINALIS (test code = 07989) NEGATIVE T. VAGINALIS (test code = 03231) NEGATIVE VAGINAL PATHOGENS DNA [id number] 00:00:00 Test Item Value Reference Range Interpretation Comments SIENA SPECIES (test code = 19605) NEGATIVE G. VAGINALIS (test code = 36204) NEGATIVE T. VAGINALIS (test code = 49972) NEGATIVE CULTURE, [id number] 00:00:00 Test Item Value Reference Range Interpretation Comments CULTURE, URINE (test SPECIMEN NUMBER: code = 23753) [id number] CULTURE, [id number] 00:00:00 Test Item Value Reference Range Interpretation Comments CULTURE, URINE (test SPECIMEN NUMBER: code = 08739) [id number] VAGINAL PATHOGENS DNA [id number] 00:00:00 Test Item Value Reference Range Interpretation Comments SIENA SPECIES (test code = 93110) NEGATIVE G. VAGINALIS (test code = 58014) NEGATIVE T. VAGINALIS (test code = 72327) NEGATIVE VAGINAL PATHOGENS DNA [id number] 00:00:00 Test Item Value Reference Range Interpretation Comments SIENA SPECIES (test code = 97777) NEGATIVE G. VAGINALIS (test code = 67879) NEGATIVE T. VAGINALIS (test code = 40992) NEGATIVE CULTURE, [id number] 00:00:00 Test Item Value Reference Range Interpretation Comments CULTURE, URINE (test SPECIMEN NUMBER: code = 74709) [id number] VAGINAL PATHOGENS DNA [id number] 00:00:00 Test Item Value Reference Range Interpretation Comments SIENA SPECIES (test code = 57033) NEGATIVE G. VAGINALIS (test code = 55284) NEGATIVE T. VAGINALIS (test code = 18028) NEGATIVE CULTURE, [id number] 00:00:00 Test Item Value Reference Range Interpretation Comments CULTURE, URINE (test SPECIMEN NUMBER: code = 18255) [id number] CULTURE, [id number] 00:00:00 Test Item Value Reference Range Interpretation Comments CULTURE, URINE (test SPECIMEN NUMBER: code = 39876) [id number] VAGINAL PATHOGENS DNA [id number] 00:00:00 Test Item Value Reference Range Interpretation Comments SIENA SPECIES (test code = 96077) NEGATIVE G. VAGINALIS (test code = 77600) NEGATIVE T. VAGINALIS (test code = 19292) NEGATIVE VAGINAL PATHOGENS DNA [id number] 00:00:00 Test Item Value Reference Range Interpretation Comments SIENA SPECIES (test code = 56316) NEGATIVE G. VAGINALIS (test code = 97291) NEGATIVE T. VAGINALIS (test code = 17671) NEGATIVE CULTURE, [id number] 00:00:00 Test Item Value Reference Range Interpretation Comments CULTURE, URINE (test SPECIMEN NUMBER: code = 85943) [id number] CULTURE, [id number] 00:00:00 Test Item Value Reference Range Interpretation Comments CULTURE, URINE (test SPECIMEN NUMBER: code = 51773) [id number] VAGINAL PATHOGENS DNA [id number] 00:00:00 Test Item Value Reference Range Interpretation Comments SIENA SPECIES (test code = 48372) NEGATIVE G. VAGINALIS (test code = 26947) NEGATIVE T. VAGINALIS (test code = 22859) NEGATIVE VAGINAL PATHOGENS DNA [id number] 00:00:00 Test Item Value Reference Range Interpretation Comments SIENA SPECIES (test code = 06998) NEGATIVE G. VAGINALIS (test code = 73681) NEGATIVE T. VAGINALIS (test code = 95980) NEGATIVE CULTURE, [id number] 00:00:00 Test Item Value Reference Range Interpretation Comments CULTURE, URINE (test SPECIMEN NUMBER: code = 65454) [id number] BASIC METABOLIC [id number] 00:00:00 Test Item Value Reference Range Interpretation Comments GLUCOSE (test code = 85 mg/dL 2345-7) UREA NITROGEN (BUN) 13 mg/dL (test code = 3094-0) CREATININE (test code = 0.55 mg/dL 0-0) eGFR NON-AFR. GABONESE 102 mL/min/1.73m2 (test code = 00055-8) eGFR 118 mL/min/1.73m2 (test code = 00475-3) BUN/CREATININE RATIO NOT APPLICABLE (calc) (test code = 3097-3) SODIUM (test code = 138 mmol/L 2951-2) POTASSIUM (test code = 4.3 mmol/L 2823-3) CHLORIDE (test code = 103 mmol/L 2075-0) CARBON DIOXIDE (test 28 mmol/L code = 8-9) CALCIUM (test code = 9.4 mg/dL 41523-8) BASIC METABOLIC [id number] 00:00:00 Test Item Value Reference Range Interpretation Comments GLUCOSE (test code = 85 mg/dL 2345-7) UREA NITROGEN (BUN) 13 mg/dL (test code = 3094-0) CREATININE (test code = 0.55 mg/dL 2160-0) eGFR NON-AFR. GABONESE 102 mL/min/1.73m2 (test code = 63131-3) eGFR 118 mL/min/1.73m2 (test code = 61285-2) BUN/CREATININE RATIO NOT APPLICABLE (calc) (test code = 3097-3) SODIUM (test code = 138 mmol/L 2951-2) POTASSIUM (test code = 4.3 mmol/L 2823-3) CHLORIDE (test code = 103 mmol/L 2075-0) CARBON DIOXIDE (test 28 mmol/L code = 8-9) CALCIUM (test code = 9.4 mg/dL 41549-0) BASIC METABOLIC [id number] 00:00:00 Test Item Value Reference Range Interpretation Comments GLUCOSE (test code = 85 mg/dL 2345-7) UREA NITROGEN (BUN) 13 mg/dL (test code = 3094-0) CREATININE (test code = 0.55 mg/dL 2160-0) eGFR NON-AFR. GABONESE 102 mL/min/1.73m2 (test code = 82488-1) eGFR 118 mL/min/1.73m2 (test code = 34649-9) BUN/CREATININE RATIO NOT APPLICABLE (calc) (test code = 3097-3) SODIUM (test code = 138 mmol/L 2951-2) POTASSIUM (test code = 4.3 mmol/L 2823-3) CHLORIDE (test code = 103 mmol/L 2075-0) CARBON DIOXIDE (test 28 mmol/L code = 8-9) CALCIUM (test code = 9.4 mg/dL 45629-1) BASIC METABOLIC [id number] 00:00:00 Test Item Value Reference Range Interpretation Comments GLUCOSE (test code = 85 mg/dL 2345-7) UREA NITROGEN (BUN) 13 mg/dL (test code = 3094-0) CREATININE (test code = 0.55 mg/dL 2160-0) eGFR NON-AFR. GABONESE 102 mL/min/1.73m2 (test code = 27610-1) eGFR 118 mL/min/1.73m2 (test code = 49950-3) BUN/CREATININE RATIO NOT APPLICABLE (calc) (test code = 3097-3) SODIUM (test code = 138 mmol/L 2951-2) POTASSIUM (test code = 4.3 mmol/L 2823-3) CHLORIDE (test code = 103 mmol/L 2075-0) CARBON DIOXIDE (test 28 mmol/L code = 2027-9) CALCIUM (test code = 9.4 mg/dL 19477-7) BASIC METABOLIC [id number] 00:00:00 Test Item Value Reference Range Interpretation Comments GLUCOSE (test code = 85 mg/dL 2345-7) UREA NITROGEN (BUN) 13 mg/dL (test code = 3094-0) CREATININE (test code = 0.55 mg/dL 2160-0) eGFR NON-AFR. GABONESE 102 mL/min/1.73m2 (test code = 75921-0) eGFR 118 mL/min/1.73m2 (test code = 16401-4) BUN/CREATININE RATIO NOT APPLICABLE (calc) (test code = 3097-3) SODIUM (test code = 138 mmol/L 2951-2) POTASSIUM (test code = 4.3 mmol/L 2823-3) CHLORIDE (test code = 103 mmol/L 2075-0) CARBON DIOXIDE (test 28 mmol/L code = 8-9) CALCIUM (test code = 9.4 mg/dL 23425-1) BASIC METABOLIC [id number] 00:00:00 Test Item Value Reference Range Interpretation Comments GLUCOSE (test code = 85 mg/dL 2345-7) UREA NITROGEN (BUN) 13 mg/dL (test code = 3094-0) CREATININE (test code = 0.55 mg/dL 2160-0) eGFR NON-AFR. GABONESE 102 mL/min/1.73m2 (test code = 78133-1) eGFR 118 mL/min/1.73m2 (test code = 65974-0) BUN/CREATININE RATIO NOT APPLICABLE (calc) (test code = 3097-3) SODIUM (test code = 138 mmol/L 2951-2) POTASSIUM (test code = 4.3 mmol/L 2823-3) CHLORIDE (test code = 103 mmol/L 2075-0) CARBON DIOXIDE (test 28 mmol/L code = 8-9) CALCIUM (test code = 9.4 mg/dL 09483-7) BASIC METABOLIC [id number] 00:00:00 Test Item Value Reference Range Interpretation Comments GLUCOSE (test code = 85 mg/dL 2345-7) UREA NITROGEN (BUN) 13 mg/dL (test code = 3094-0) CREATININE (test code = 0.55 mg/dL 2160-0) eGFR NON-AFR. GABONESE 102 mL/min/1.73m2 (test code = 24432-5) eGFR 118 mL/min/1.73m2 (test code = 74200-8) BUN/CREATININE RATIO NOT APPLICABLE (calc) (test code = 3097-3) SODIUM (test code = 138 mmol/L 2951-2) POTASSIUM (test code = 4.3 mmol/L 2823-3) CHLORIDE (test code = 103 mmol/L 2075-0) CARBON DIOXIDE (test 28 mmol/L code = 8-9) CALCIUM (test code = 9.4 mg/dL 81316-8) CBC W/AUTO [id number] 00:00:00 Test Item Value Reference Range Interpretation [...] code = 1015) 268 K/UL CBC W/AUTO [id number] 00:00:00 Test Item Value Reference Range Interpretation [...] code = 1015) 268 K/UL CBC W/AUTO [id number] 00:00:00 Test Item Value Reference Range Interpretation [...] code = 1015) 268 K/UL CBC W/AUTO [id number] 00:00:00 Test Item Value Reference Range Interpretation [...] code = 1015) 268 K/UL COMPREHENSIVE METABOLIC [id number] 00:00:00 Test Item Value Reference Range Interpretation Comments GLUCOSE (test code = 2217) 127 MG/DL BUN (test code = 2208) 13 MG/DL CREATININE (test code = 2214) 0.65 MG/DL eGFR AMER. (test code 112 ML/MIN/1.73 = 35113) eGFR NON- AMER. (test 96 ML/MIN/1.73 code = 54115) CALC BUN/CREAT (test code = 20 RATIO [...] code = 2219) 14 U/L COMPREHENSIVE METABOLIC [id number] 00:00:00 Test Item Value Reference Range Interpretation Comments GLUCOSE (test code = 2217) 127 MG/DL BUN (test code = 2208) 13 MG/DL CREATININE (test code = 2214) 0.65 MG/DL eGFR AMER. (test code 112 ML/MIN/1.73 = 49339) eGFR NON- AMER. (test 96 ML/MIN/1.73 code = 48166) CALC BUN/CREAT (test code = 20 RATIO [...] (test code = 2219) 14 U/L LIPID [id number] 00:00:00 Test Item Value Reference Range Interpretation Comments CHOLESTEROL (test code = 2210) 187 MG/DL TRIGLYCERIDES (test code = 2232) 137 MG/DL HDL CHOLESTEROL (test code = 2220) 52 MG/DL CALC LDL CHOL (test code = 2237) 108 MG/DL RISK RATIO LDL/HDL (test code = 2.07 RATIO 2238) LIPID [id number] 00:00:00 Test Item Value Reference Range Interpretation Comments CHOLESTEROL (test code = 2210) 187 MG/DL TRIGLYCERIDES (test code = 2232) 137 MG/DL HDL CHOLESTEROL (test code = 2220) 52 MG/DL CALC LDL CHOL (test code = 2237) 108 MG/DL RISK RATIO LDL/HDL (test code = 2.07 RATIO 2238) COMPREHENSIVE METABOLIC [id number] 00:00:00 Test Item Value Reference Range Interpretation Comments GLUCOSE (test code = 2217) 127 MG/DL BUN (test code = 2208) 13 MG/DL CREATININE (test code = 2214) 0.65 MG/DL eGFR AMER. (test code 112 ML/MIN/1.73 = 46553) eGFR NON- AMER. (test 96 ML/MIN/1.73 code = 31914) CALC BUN/CREAT (test code = 20 RATIO [...] (test code = 2219) 14 U/L HEMOGLOBIN [id number] 00:00:00 Test Item Value Reference Range Interpretation Comments HEMOGLOBIN A1c (test code = 71767) 6.1 % HEMOGLOBIN [id number] 00:00:00 Test Item Value Reference Range Interpretation Comments HEMOGLOBIN A1c (test code = 59766) 6.1 % HEMOGLOBIN [id number] 00:00:00 Test Item Value Reference Range Interpretation Comments HEMOGLOBIN A1c (test code = 67879) 6.1 % HEPATITIS C [id number] 00:00:00 Test Item Value Reference Range Interpretation Comments HEPATITIS C ANTIBODY (test code NON-REACTIVE = 4675) HEPATITIS C [id number] 00:00:00 Test Item Value Reference Range Interpretation Comments HEPATITIS C ANTIBODY (test code NON-REACTIVE = 4675) [id number] 00:00:00 Test Item Value Reference Range Interpretation Comments FERRITIN (test code = 2074) 28 NG/ML [id number] 00:00:00 Test Item Value Reference Range Interpretation Comments FERRITIN (test code = 2074) 28 NG/ML IRON BINDING CAPACITY AND IRON AND % [id number] 00:00:00 Test Item Value Reference Range Interpretation Comments IRON, SERUM (test code = 2221) 55 UG/DL UNSATURATED IBC (test code = ) 324 UG/DL CALC TOTAL IBC (test code = 2076) 379 UG/DL CALC % IRON SAT (test code = 2078) 15 % IRON BINDING CAPACITY AND IRON AND % [id number] 00:00:00 Test Item Value Reference Range Interpretation Comments IRON, SERUM (test code = 2221) 55 UG/DL UNSATURATED IBC (test code = 81974) 324 UG/DL CALC TOTAL IBC (test code = 2076) 379 UG/DL CALC % IRON SAT (test code = 2078) 15 % [id number] 00:00:00 Test Item Value Reference Range Interpretation Comments TRANSFERRIN (test code = 4936) 312 MG/DL [id number] 00:00:00 Test Item Value Reference Range Interpretation Comments TRANSFERRIN (test code = 4936) 312 MG/DL VITAMIN B 12 AND FOLIC [id number] 00:00:00 Test Item Value Reference Range Interpretation Comments VITAMIN B-12 (test code = 2840) 425 PG/ML FOLIC ACID (test code = 2695) 11.3 UG/L VITAMIN B 12 AND FOLIC [id number] 00:00:00 Test Item Value Reference Range Interpretation Comments VITAMIN B-12 (test code = 2840) 425 PG/ML FOLIC ACID (test code = 2695) 11.3 UG/L LIPID [id number] 00:00:00 Test Item Value Reference Range Interpretation Comments CHOLESTEROL (test code = 2210) 187 MG/DL TRIGLYCERIDES (test code = 2232) 137 MG/DL HDL CHOLESTEROL (test code = 2220) 52 MG/DL CALC LDL CHOL (test code = 2237) 108 MG/DL RISK RATIO LDL/HDL (test code = 2.07 RATIO 2238) CBC W/AUTO [id number] 00:00:00 Test Item Value Reference Range Interpretation [...] (test code = 1015) 268 K/UL HEMOGLOBIN [id number] 00:00:00 Test Item Value Reference Range Interpretation Comments HEMOGLOBIN A1c (test code = 64359) 6.1 % CBC W/AUTO [id number] 00:00:00 Test Item Value Reference Range Interpretation [...] code = 1015) 268 K/UL CBC W/AUTO [id number] 00:00:00 Test Item Value Reference Range Interpretation [...] (test code = 1015) 268 K/UL HEMOGLOBIN [id number] 00:00:00 Test Item Value Reference Range Interpretation Comments HEMOGLOBIN A1c (test code = 47457) 6.1 % COMPREHENSIVE METABOLIC [id number] 00:00:00 Test Item Value Reference Range Interpretation Comments GLUCOSE (test code = 2217) 127 MG/DL BUN (test code = 2208) 13 MG/DL CREATININE (test code = 2214) 0.65 MG/DL eGFR AMER. (test code 112 ML/MIN/1.73 = 23129) eGFR NON- AMER. (test 96 ML/MIN/1.73 code = 20709) CALC BUN/CREAT (test code = 20 RATIO [...] code = 2219) 14 U/L COMPREHENSIVE METABOLIC [id number] 00:00:00 Test Item Value Reference Range Interpretation Comments GLUCOSE (test code = 2217) 127 MG/DL BUN (test code = 2208) 13 MG/DL CREATININE (test code = 2214) 0.65 MG/DL eGFR AMER. (test code 112 ML/MIN/1.73 = 29898) eGFR NON- AMER. (test 96 ML/MIN/1.73 code = 52019) CALC BUN/CREAT (test code = 20 RATIO [...] code = 2219) 14 U/L HEPATITIS C [id number] 00:00:00 Test Item Value Reference Range Interpretation Comments HEPATITIS C ANTIBODY (test code NON-REACTIVE = 4675) LIPID [id number] 00:00:00 Test Item Value Reference Range Interpretation Comments CHOLESTEROL (test code = 2210) 187 MG/DL TRIGLYCERIDES (test code = 2232) 137 MG/DL HDL CHOLESTEROL (test code = 2220) 52 MG/DL CALC LDL CHOL (test code = 2237) 108 MG/DL RISK RATIO LDL/HDL (test code = 2.07 RATIO 2238) LIPID [id number] 00:00:00 Test Item Value Reference Range Interpretation Comments CHOLESTEROL (test code = 2210) 187 MG/DL TRIGLYCERIDES (test code = 2232) 137 MG/DL HDL CHOLESTEROL (test code = 2220) 52 MG/DL CALC LDL CHOL (test code = 2237) 108 MG/DL RISK RATIO LDL/HDL (test code = 2.07 RATIO 2238) HEMOGLOBIN [id number] 00:00:00 Test Item Value Reference Range Interpretation Comments HEMOGLOBIN A1c (test code = 86552) 6.1 % HEMOGLOBIN [id number] 00:00:00 Test Item Value Reference Range Interpretation Comments HEMOGLOBIN A1c (test code = 70700) 6.1 % HEMOGLOBIN [id number] 00:00:00 Test Item Value Reference Range Interpretation Comments HEMOGLOBIN A1c (test code = 90108) 6.1 % [id number] 00:00:00 Test Item Value Reference Range Interpretation Comments FERRITIN (test code = 5) 28 NG/ML HEPATITIS C [id number] 00:00:00 Test Item Value Reference Range Interpretation Comments HEPATITIS C ANTIBODY (test code NON-REACTIVE = 4675) HEPATITIS C [id number] 00:00:00 Test Item Value Reference Range Interpretation Comments HEPATITIS C ANTIBODY (test code NON-REACTIVE = 4675) [id number] 00:00:00 Test Item Value Reference Range Interpretation Comments FERRITIN (test code = 5) 28 NG/ML [id number] 00:00:00 Test Item Value Reference Range Interpretation Comments FERRITIN (test code = 5) 28 NG/ML IRON BINDING CAPACITY AND IRON AND % [id number] 00:00:00 Test Item Value Reference Range Interpretation Comments IRON, SERUM (test code = 2221) 55 UG/DL UNSATURATED IBC (test code = ) 324 UG/DL CALC TOTAL IBC (test code = 2076) 379 UG/DL CALC % IRON SAT (test code = 2078) 15 % IRON BINDING CAPACITY AND IRON AND % [id number] 00:00:00 Test Item Value Reference Range Interpretation Comments IRON, SERUM (test code = 2) 55 UG/DL UNSATURATED IBC (test code = 64879) 324 UG/DL CALC TOTAL IBC (test code = 2076) 379 UG/DL CALC % IRON SAT (test code = 2078) 15 % [id number] 00:00:00 Test Item Value Reference Range Interpretation Comments TRANSFERRIN (test code = 4936) 312 MG/DL [id number] 00:00:00 Test Item Value Reference Range Interpretation Comments TRANSFERRIN (test code = 4936) 312 MG/DL IRON BINDING CAPACITY AND IRON AND % [id number] 00:00:00 Test Item Value Reference Range Interpretation Comments IRON, SERUM (test code = 2) 55 UG/DL UNSATURATED IBC (test code = 63122) 324 UG/DL CALC TOTAL IBC (test code = 2076) 379 UG/DL CALC % IRON SAT (test code = 2078) 15 % VITAMIN B 12 AND FOLIC [id number] 00:00:00 Test Item Value Reference Range Interpretation Comments VITAMIN B-12 (test code = 2840) 425 PG/ML FOLIC ACID (test code = 2695) 11.3 UG/L VITAMIN B 12 AND FOLIC [id number] 00:00:00 Test Item Value Reference Range Interpretation Comments VITAMIN B-12 (test code = 2840) 425 PG/ML FOLIC ACID (test code = 2695) 11.3 UG/L [id number] 00:00:00 Test Item Value Reference Range Interpretation Comments TRANSFERRIN (test code = 4936) 312 MG/DL VITAMIN B 12 AND FOLIC [id number] 00:00:00 Test Item Value Reference Range Interpretation Comments VITAMIN B-12 (test code = 2840) 425 PG/ML FOLIC ACID (test code = 2695) 11.3 UG/L CBC W/AUTO [id number] 00:00:00 Test Item Value Reference Range Interpretation [...] code = 1015) 268 K/UL CBC W/AUTO [id number] 00:00:00 Test Item Value Reference Range Interpretation [...] code = 1015) 268 K/UL CBC W/AUTO [id number] 00:00:00 Test Item Value Reference Range Interpretation [...] code = 1015) 268 K/UL COMPREHENSIVE METABOLIC [id number] 00:00:00 Test Item Value Reference Range Interpretation Comments GLUCOSE (test code = 2217) 127 MG/DL BUN (test code = 2208) 13 MG/DL CREATININE (test code = 2214) 0.65 MG/DL eGFR AMER. (test code 112 ML/MIN/1.73 = 78595) eGFR NON- AMER. (test 96 ML/MIN/1.73 code = 23472) CALC BUN/CREAT (test code = 20 RATIO [...] code = 2219) 14 U/L COMPREHENSIVE METABOLIC [id number] 00:00:00 Test Item Value Reference Range Interpretation Comments GLUCOSE (test code = 2217) 127 MG/DL BUN (test code = 2208) 13 MG/DL CREATININE (test code = 2214) 0.65 MG/DL eGFR AMER. (test code 112 ML/MIN/1.73 = 97621) eGFR NON- AMER. (test 96 ML/MIN/1.73 code = 01586) CALC BUN/CREAT (test code = 20 RATIO [...] (test code = 2219) 14 U/L LIPID [id number] 00:00:00 Test Item Value Reference Range Interpretation Comments CHOLESTEROL (test code = 2210) 187 MG/DL TRIGLYCERIDES (test code = 2232) 137 MG/DL HDL CHOLESTEROL (test code = 2220) 52 MG/DL CALC LDL CHOL (test code = 2237) 108 MG/DL RISK RATIO LDL/HDL (test code = 2.07 RATIO 2238) LIPID [id number] 00:00:00 Test Item Value Reference Range Interpretation Comments CHOLESTEROL (test code = 2210) 187 MG/DL TRIGLYCERIDES (test code = 2232) 137 MG/DL HDL CHOLESTEROL (test code = 2220) 52 MG/DL CALC LDL CHOL (test code = 2237) 108 MG/DL RISK RATIO LDL/HDL (test code = 2.07 RATIO 2238) HEMOGLOBIN [id number] 00:00:00 Test Item Value Reference Range Interpretation Comments HEMOGLOBIN A1c (test code = 39870) 6.1 % HEMOGLOBIN [id number] 00:00:00 Test Item Value Reference Range Interpretation Comments HEMOGLOBIN A1c (test code = 21110) 6.1 % HEMOGLOBIN [id number] 00:00:00 Test Item Value Reference Range Interpretation Comments HEMOGLOBIN A1c (test code = 58411) 6.1 % HEPATITIS C [id number] 00:00:00 Test Item Value Reference Range Interpretation Comments HEPATITIS C ANTIBODY (test code NON-REACTIVE = 4675) HEPATITIS C [id number] 00:00:00 Test Item Value Reference Range Interpretation Comments HEPATITIS C ANTIBODY (test code NON-REACTIVE = 4675) [id number] 00:00:00 Test Item Value Reference Range Interpretation Comments FERRITIN (test code = 2075) 28 NG/ML [id number] 00:00:00 Test Item Value Reference Range Interpretation Comments FERRITIN (test code = 2075) 28 NG/ML IRON BINDING CAPACITY AND IRON AND % [id number] 00:00:00 Test Item Value Reference Range Interpretation Comments IRON, SERUM (test code = 2) 55 UG/DL UNSATURATED IBC (test code = 76518) 324 UG/DL CALC TOTAL IBC (test code = 2076) 379 UG/DL CALC % IRON SAT (test code = 2078) 15 % IRON BINDING CAPACITY AND IRON AND % [id number] 00:00:00 Test Item Value Reference Range Interpretation Comments IRON, SERUM (test code = 2) 55 UG/DL UNSATURATED IBC (test code = 23626) 324 UG/DL CALC TOTAL IBC (test code = 2076) 379 UG/DL CALC % IRON SAT (test code = 2078) 15 % [id number] 00:00:00 Test Item Value Reference Range Interpretation Comments TRANSFERRIN (test code = 4936) 312 MG/DL [id number] 00:00:00 Test Item Value Reference Range Interpretation Comments TRANSFERRIN (test code = 4936) 312 MG/DL VITAMIN B 12 AND FOLIC [id number] 00:00:00 Test Item Value Reference Range Interpretation Comments VITAMIN B-12 (test code = 2840) 425 PG/ML FOLIC ACID (test code = 2695) 11.3 UG/L VITAMIN B 12 AND FOLIC [id number] 00:00:00 Test Item Value Reference Range Interpretation Comments VITAMIN B-12 (test code = 2840) 425 PG/ML FOLIC ACID (test code = 2695) 11.3 UG/L CBC W/AUTO [id number] 00:00:00 Test Item Value Reference Range Interpretation [...] code = 1015) 268 K/UL CBC W/AUTO [id number] 00:00:00 Test Item Value Reference Range Interpretation [...] code = 1015) 268 K/UL COMPREHENSIVE METABOLIC [id number] 00:00:00 Test Item Value Reference Range Interpretation Comments GLUCOSE (test code = 2217) 127 MG/DL BUN (test code = 2208) 13 MG/DL CREATININE (test code = 2214) 0.65 MG/DL eGFR AMER. (test code 112 ML/MIN/1.73 = 09590) eGFR NON- AMER. (test 96 ML/MIN/1.73 code = 46470) CALC BUN/CREAT (test code = 20 RATIO [...] (test code = 2219) 14 U/L LIPID [id number] 00:00:00 Test Item Value Reference Range Interpretation Comments CHOLESTEROL (test code = 2210) 187 MG/DL TRIGLYCERIDES (test code = 2232) 137 MG/DL HDL CHOLESTEROL (test code = 2220) 52 MG/DL CALC LDL CHOL (test code = 2237) 108 MG/DL RISK RATIO LDL/HDL (test code = 2.07 RATIO 2238) HEMOGLOBIN [id number] 00:00:00 Test Item Value Reference Range Interpretation Comments HEMOGLOBIN A1c (test code = 77969) 6.1 % HEMOGLOBIN [id number] 00:00:00 Test Item Value Reference Range Interpretation Comments HEMOGLOBIN A1c (test code = 39425) 6.1 % HEPATITIS C [id number] 00:00:00 Test Item Value Reference Range Interpretation Comments HEPATITIS C ANTIBODY (test code NON-REACTIVE = 4675) [id number] 00:00:00 Test Item Value Reference Range Interpretation Comments FERRITIN (test code = 2075) 28 NG/ML IRON BINDING CAPACITY AND IRON AND % [id number] 00:00:00 Test Item Value Reference Range Interpretation Comments IRON, SERUM (test code = 222) 55 UG/DL UNSATURATED IBC (test code = 03152) 324 UG/DL CALC TOTAL IBC (test code = 207) 379 UG/DL CALC % IRON SAT (test code = 2079) 15 % [id number] 00:00:00 Test Item Value Reference Range Interpretation Comments TRANSFERRIN (test code = 4936) 312 MG/DL VITAMIN B 12 AND FOLIC [id number] 00:00:00 Test Item Value Reference Range Interpretation Comments VITAMIN B-12 (test code = 2840) 425 PG/ML FOLIC ACID (test code = 2695) 11.3 UG/L CBC W/AUTO [id number] 00:00:00 Test Item Value Reference Range Interpretation [...] code = 1015) 268 K/UL CBC W/AUTO [id number] 00:00:00 Test Item Value Reference Range Interpretation [...] code = 1015) 268 K/UL CBC W/AUTO [id number] 00:00:00 Test Item Value Reference Range Interpretation [...] code = 1015) 268 K/UL COMPREHENSIVE METABOLIC [id number] 00:00:00 Test Item Value Reference Range Interpretation Comments GLUCOSE (test code = 2217) 127 MG/DL BUN (test code = 2208) 13 MG/DL CREATININE (test code = 2214) 0.65 MG/DL eGFR AMER. (test code 112 ML/MIN/1.73 = 16737) eGFR NON- AMER. (test 96 ML/MIN/1.73 code = 61788) CALC BUN/CREAT (test code = 20 RATIO [...] code = 2219) 14 U/L COMPREHENSIVE METABOLIC [id number] 00:00:00 Test Item Value Reference Range Interpretation Comments GLUCOSE (test code = 2217) 127 MG/DL BUN (test code = 2208) 13 MG/DL CREATININE (test code = 2214) 0.65 MG/DL eGFR AMER. (test code 112 ML/MIN/1.73 = 67019) eGFR NON- AMER. (test 96 ML/MIN/1.73 code = 50463) CALC BUN/CREAT (test code = 20 RATIO [...] (test code = 2219) 14 U/L LIPID [id number] 00:00:00 Test Item Value Reference Range Interpretation Comments CHOLESTEROL (test code = 2210) 187 MG/DL TRIGLYCERIDES (test code = 2232) 137 MG/DL HDL CHOLESTEROL (test code = 2220) 52 MG/DL CALC LDL CHOL (test code = 2237) 108 MG/DL RISK RATIO LDL/HDL (test code = 2.07 RATIO 2238) LIPID [id number] 00:00:00 Test Item Value Reference Range Interpretation Comments CHOLESTEROL (test code = 2210) 187 MG/DL TRIGLYCERIDES (test code = 2232) 137 MG/DL HDL CHOLESTEROL (test code = 2220) 52 MG/DL CALC LDL CHOL (test code = 2237) 108 MG/DL RISK RATIO LDL/HDL (test code = 2.07 RATIO 2238) HEMOGLOBIN [id number] 00:00:00 Test Item Value Reference Range Interpretation Comments HEMOGLOBIN A1c (test code = 75458) 6.1 % HEMOGLOBIN [id number] 00:00:00 Test Item Value Reference Range Interpretation Comments HEMOGLOBIN A1c (test code = 68034) 6.1 % HEMOGLOBIN [id number] 00:00:00 Test Item Value Reference Range Interpretation Comments HEMOGLOBIN A1c (test code = 94467) 6.1 % HEPATITIS C [id number] 00:00:00 Test Item Value Reference Range Interpretation Comments HEPATITIS C ANTIBODY (test code NON-REACTIVE = 4675) HEPATITIS C [id number] 00:00:00 Test Item Value Reference Range Interpretation Comments HEPATITIS C ANTIBODY (test code NON-REACTIVE = 4675) [id number] 00:00:00 Test Item Value Reference Range Interpretation Comments FERRITIN (test code = 2075) 28 NG/ML [id number] 00:00:00 Test Item Value Reference Range Interpretation Comments FERRITIN (test code = 2075) 28 NG/ML IRON BINDING CAPACITY AND IRON AND % [id number] 00:00:00 Test Item Value Reference Range Interpretation Comments IRON, SERUM (test code = 2) 55 UG/DL UNSATURATED IBC (test code = 33095) 324 UG/DL CALC TOTAL IBC (test code = 2076) 379 UG/DL CALC % IRON SAT (test code = 2078) 15 % IRON BINDING CAPACITY AND IRON AND % [id number] 00:00:00 Test Item Value Reference Range Interpretation Comments IRON, SERUM (test code = 2) 55 UG/DL UNSATURATED IBC (test code = 95339) 324 UG/DL CALC TOTAL IBC (test code = 2076) 379 UG/DL CALC % IRON SAT (test code = 2078) 15 % [id number] 00:00:00 Test Item Value Reference Range Interpretation Comments TRANSFERRIN (test code = 4936) 312 MG/DL [id number] 00:00:00 Test Item Value Reference Range Interpretation Comments TRANSFERRIN (test code = 4936) 312 MG/DL VITAMIN B 12 AND FOLIC [id number] 00:00:00 Test Item Value Reference Range Interpretation Comments VITAMIN B-12 (test code = 2840) 425 PG/ML FOLIC ACID (test code = 2695) 11.3 UG/L VITAMIN B 12 AND FOLIC [id number] 00:00:00 Test Item Value Reference Range Interpretation Comments VITAMIN B-12 (test code = 2840) 425 PG/ML FOLIC ACID (test code = 2695) 11.3 UG/L CBC W/AUTO [id number] 00:00:00 Test Item Value Reference Range Interpretation [...] code = 1015) 268 K/UL CBC W/AUTO [id number] 00:00:00 Test Item Value Reference Range Interpretation [...] code = 1015) 268 K/UL CBC W/AUTO [id number] 00:00:00 Test Item Value Reference Range Interpretation [...] code = 1015) 268 K/UL COMPREHENSIVE METABOLIC [id number] 00:00:00 Test Item Value Reference Range Interpretation Comments GLUCOSE (test code = 2217) 127 MG/DL BUN (test code = 2208) 13 MG/DL CREATININE (test code = 2214) 0.65 MG/DL eGFR AMER. (test code 112 ML/MIN/1.73 = 87228) eGFR NON- AMER. (test 96 ML/MIN/1.73 code = 90091) CALC BUN/CREAT (test code = 20 RATIO [...] code = 2219) 14 U/L COMPREHENSIVE METABOLIC [id number] 00:00:00 Test Item Value Reference Range Interpretation Comments GLUCOSE (test code = 2217) 127 MG/DL BUN (test code = 2208) 13 MG/DL CREATININE (test code = 2214) 0.65 MG/DL eGFR AMER. (test code 112 ML/MIN/1.73 = 44841) eGFR NON- AMER. (test 96 ML/MIN/1.73 code = 18812) CALC BUN/CREAT (test code = 20 RATIO [...] (test code = 2219) 14 U/L LIPID [id number] 00:00:00 Test Item Value Reference Range Interpretation Comments CHOLESTEROL (test code = 2210) 187 MG/DL TRIGLYCERIDES (test code = 2232) 137 MG/DL HDL CHOLESTEROL (test code = 2220) 52 MG/DL CALC LDL CHOL (test code = 2237) 108 MG/DL RISK RATIO LDL/HDL (test code = 2.07 RATIO 2238) LIPID [id number] 00:00:00 Test Item Value Reference Range Interpretation Comments CHOLESTEROL (test code = 2210) 187 MG/DL TRIGLYCERIDES (test code = 2232) 137 MG/DL HDL CHOLESTEROL (test code = 2220) 52 MG/DL CALC LDL CHOL (test code = 2237) 108 MG/DL RISK RATIO LDL/HDL (test code = 2.07 RATIO 2238) HEMOGLOBIN [id number] 00:00:00 Test Item Value Reference Range Interpretation Comments HEMOGLOBIN A1c (test code = 12970) 6.1 % HEMOGLOBIN [id number] 00:00:00 Test Item Value Reference Range Interpretation Comments HEMOGLOBIN A1c (test code = 63971) 6.1 % HEMOGLOBIN [id number] 00:00:00 Test Item Value Reference Range Interpretation Comments HEMOGLOBIN A1c (test code = 14522) 6.1 % HEPATITIS C [id number] 00:00:00 Test Item Value Reference Range Interpretation Comments HEPATITIS C ANTIBODY (test code NON-REACTIVE = 4675) HEPATITIS C [id number] 00:00:00 Test Item Value Reference Range Interpretation Comments HEPATITIS C ANTIBODY (test code NON-REACTIVE = 4675) [id number] 00:00:00 Test Item Value Reference Range Interpretation Comments FERRITIN (test code = 2075) 28 NG/ML [id number] 00:00:00 Test Item Value Reference Range Interpretation Comments FERRITIN (test code = 5) 28 NG/ML IRON BINDING CAPACITY AND IRON AND % [id number] 00:00:00 Test Item Value Reference Range Interpretation Comments IRON, SERUM (test code = 2221) 55 UG/DL UNSATURATED IBC (test code = ) 324 UG/DL CALC TOTAL IBC (test code = 2077) 379 UG/DL CALC % IRON SAT (test code = 2078) 15 % IRON BINDING CAPACITY AND IRON AND % [id number] 00:00:00 Test Item Value Reference Range Interpretation Comments IRON, SERUM (test code = 2222) 55 UG/DL UNSATURATED IBC (test code = 67547) 324 UG/DL CALC TOTAL IBC (test code = 2076) 379 UG/DL CALC % IRON SAT (test code = 2078) 15 % [id number] 00:00:00 Test Item Value Reference Range Interpretation Comments TRANSFERRIN (test code = 4936) 312 MG/DL [id number] 00:00:00 Test Item Value Reference Range Interpretation Comments TRANSFERRIN (test code = 4936) 312 MG/DL VITAMIN B 12 AND FOLIC [id number] 00:00:00 Test Item Value Reference Range Interpretation Comments VITAMIN B-12 (test code = 2840) 425 PG/ML FOLIC ACID (test code = 2695) 11.3 UG/L VITAMIN B 12 AND FOLIC [id number] 00:00:00 Test Item Value Reference Range Interpretation Comments VITAMIN B-12 (test code = 2840) 425 PG/ML FOLIC ACID (test code = 2695) 11.3 UG/L CBC W/AUTO [id number] 00:00:00 Test Item Value Reference Range Interpretation [...] code = 1015) 268 K/UL COMPREHENSIVE METABOLIC [id number] 00:00:00 Test Item Value Reference Range Interpretation Comments GLUCOSE (test code = 2217) 87 MG/DL BUN (test code = 2208) 24 MG/DL CREATININE (test code = 2214) 0.7 MG/DL eGFR AMER. (test code 104 ML/MIN/1.73 = 06054) eGFR NON- AMER. (test 86 ML/MIN/1.73 code = 55822) CALCULATED BUN/CREAT (test 34 RATIO code = [...] code = 2219) 8 U/L COMPREHENSIVE METABOLIC [id number] 00:00:00 Test Item Value Reference Range Interpretation Comments GLUCOSE (test code = 2217) 87 MG/DL BUN (test code = 2208) 24 MG/DL CREATININE (test code = 2214) 0.7 MG/DL eGFR AMER. (test code 104 ML/MIN/1.73 = 57040) eGFR NON- AMER. (test 86 ML/MIN/1.73 code = 08224) CALCULATED BUN/CREAT (test 34 RATIO code = [...] code = 2219) 8 U/L COMPREHENSIVE METABOLIC [id number] 00:00:00 Test Item Value Reference Range Interpretation Comments GLUCOSE (test code = 2217) 87 MG/DL BUN (test code = 2208) 24 MG/DL CREATININE (test code = 2214) 0.7 MG/DL eGFR AMER. (test code 104 ML/MIN/1.73 = 34740) eGFR NON- AMER. (test 86 ML/MIN/1.73 code = 21951) CALCULATED BUN/CREAT (test 34 RATIO code = [...] code = 2219) 8 U/L CBC W/AUTO [id number] 00:00:00 Test Item Value Reference Range Interpretation [...] code = 1015) 282 K/UL CBC W/AUTO [id number] 00:00:00 Test Item Value Reference Range Interpretation [...] code = 1015) 282 K/UL CBC W/AUTO [id number] 00:00:00 Test Item Value Reference Range Interpretation [...] code = 1015) 282 K/UL CBC W/AUTO [id number] 00:00:00 Test Item Value Reference Range Interpretation [...] code = 1015) 282 K/UL CBC W/AUTO [id number] 00:00:00 Test Item Value Reference Range Interpretation [...] code = 1015) 282 K/UL COMPREHENSIVE METABOLIC [id number] 00:00:00 Test Item Value Reference Range Interpretation Comments GLUCOSE (test code = 2217) 87 MG/DL BUN (test code = 2208) 24 MG/DL CREATININE (test code = 2214) 0.7 MG/DL eGFR AMER. (test code 104 ML/MIN/1.73 = 00606) eGFR NON- AMER. (test 86 ML/MIN/1.73 code = 95747) CALCULATED BUN/CREAT (test 34 RATIO code = [...] code = 2219) 8 U/L COMPREHENSIVE METABOLIC [id number] 00:00:00 Test Item Value Reference Range Interpretation Comments GLUCOSE (test code = 2217) 87 MG/DL BUN (test code = 2208) 24 MG/DL CREATININE (test code = 2214) 0.7 MG/DL eGFR AMER. (test code 104 ML/MIN/1.73 = 88500) eGFR NON- AMER. (test 86 ML/MIN/1.73 code = 32962) CALCULATED BUN/CREAT (test 34 RATIO code = [...] code = 2219) 8 U/L CBC W/AUTO [id number] 00:00:00 Test Item Value Reference Range Interpretation [...] code = 1015) 282 K/UL CBC W/AUTO [id number] 00:00:00 Test Item Value Reference Range Interpretation [...] code = 1015) 282 K/UL CBC W/AUTO [id number] 00:00:00 Test Item Value Reference Range Interpretation [...] code = 1015) 282 K/UL COMPREHENSIVE METABOLIC [id number] 00:00:00 Test Item Value Reference Range Interpretation Comments GLUCOSE (test code = 2217) 87 MG/DL BUN (test code = 2208) 24 MG/DL CREATININE (test code = 2214) 0.7 MG/DL eGFR AMER. (test code 104 ML/MIN/1.73 = 48882) eGFR NON- AMER. (test 86 ML/MIN/1.73 code = 77419) CALCULATED BUN/CREAT (test 34 RATIO code = [...] code = 2219) 8 U/L COMPREHENSIVE METABOLIC [id number] 00:00:00 Test Item Value Reference Range Interpretation Comments GLUCOSE (test code = 2217) 87 MG/DL BUN (test code = 2208) 24 MG/DL CREATININE (test code = 2214) 0.7 MG/DL eGFR AMER. (test code 104 ML/MIN/1.73 = 66840) eGFR NON- AMER. (test 86 ML/MIN/1.73 code = 69193) CALCULATED BUN/CREAT (test 34 RATIO code = [...] code = 2219) 8 U/L CBC W/AUTO [id number] 00:00:00 Test Item Value Reference Range Interpretation [...] code = 1015) 282 K/UL CBC W/AUTO [id number] 00:00:00 Test Item Value Reference Range Interpretation [...] code = 1015) 282 K/UL CBC W/AUTO [id number] 00:00:00 Test Item Value Reference Range Interpretation [...] code = 1015) 282 K/UL COMPREHENSIVE METABOLIC [id number] 00:00:00 Test Item Value Reference Range Interpretation Comments GLUCOSE (test code = 2217) 87 MG/DL BUN (test code = 2208) 24 MG/DL CREATININE (test code = 2214) 0.7 MG/DL eGFR AMER. (test code 104 ML/MIN/1.73 = 56213) eGFR NON- AMER. (test 86 ML/MIN/1.73 code = 47051) CALCULATED BUN/CREAT (test 34 RATIO code = [...] code = 2219) 8 U/L CBC W/AUTO [id number] 00:00:00 Test Item Value Reference Range Interpretation [...] code = 1015) 282 K/UL CBC W/AUTO [id number] 00:00:00 Test Item Value Reference Range Interpretation [...] code = 1015) 282 K/UL COMPREHENSIVE METABOLIC [id number] 00:00:00 Test Item Value Reference Range Interpretation Comments GLUCOSE (test code = 2217) 87 MG/DL BUN (test code = 2208) 24 MG/DL CREATININE (test code = 2214) 0.7 MG/DL eGFR AMER. (test code 104 ML/MIN/1.73 = 54353) eGFR NON- AMER. (test 86 ML/MIN/1.73 code = 39214) CALCULATED BUN/CREAT (test 34 RATIO code = [...] code = 2219) 8 U/L COMPREHENSIVE METABOLIC [id number] 00:00:00 Test Item Value Reference Range Interpretation Comments GLUCOSE (test code = 2217) 87 MG/DL BUN (test code = 2208) 24 MG/DL CREATININE (test code = 2214) 0.7 MG/DL eGFR AMER. (test code 104 ML/MIN/1.73 = 11355) eGFR NON- AMER. (test 86 ML/MIN/1.73 code = 74773) CALCULATED BUN/CREAT (test 34 RATIO code = [...] code = 2219) 8 U/L CBC W/AUTO [id number] 00:00:00 Test Item Value Reference Range Interpretation [...] code = 1015) 282 K/UL CBC W/AUTO [id number] 00:00:00 Test Item Value Reference Range Interpretation [...] code = 1015) 282 K/UL CBC W/AUTO [id number] 00:00:00 Test Item Value Reference Range Interpretation [...] code = 1015) 282 K/UL COMPREHENSIVE METABOLIC [id number] 00:00:00 Test Item Value Reference Range Interpretation Comments GLUCOSE (test code = 2217) 87 MG/DL BUN (test code = 2208) 24 MG/DL CREATININE (test code = 2214) 0.7 MG/DL eGFR AMER. (test code 104 ML/MIN/1.73 = 16135) eGFR NON- AMER. (test 86 ML/MIN/1.73 code = 78435) CALCULATED BUN/CREAT (test 34 RATIO code = [...] code = 2219) 8 U/L COMPREHENSIVE METABOLIC [id number] 00:00:00 Test Item Value Reference Range Interpretation Comments GLUCOSE (test code = 2217) 87 MG/DL BUN (test code = 2208) 24 MG/DL CREATININE (test code = 2214) 0.7 MG/DL eGFR AMER. (test code 104 ML/MIN/1.73 = 08866) eGFR NON- AMER. (test 86 ML/MIN/1.73 code = 06850) CALCULATED BUN/CREAT (test 34 RATIO code = [...] code = 2219) 8 U/L CBC W/AUTO [id number] 00:00:00 Test Item Value Reference Range Interpretation [...] code = 1015) 282 K/UL CBC W/AUTO [id number] 00:00:00 Test Item Value Reference Range Interpretation [...] code = 1015) 282 K/UL CBC W/AUTO [id number] 00:00:00 Test Item Value Reference Range Interpretation [...] Notes Date/Time Note Provider Source 2020-12-03 11:15:00-00:00 [id number] [facility] [id number] [place] [id number] PATIENT NAME: DINAH ALDANA ADMIT DATE: 11/29/20 ACCOUNT NO: [id number] ROOM NO: AGE: 65 REPORT TYPE: eECHOCARDIOGRAM REPORT SEX: F ADMITTING PHYSICIAN: ATTENDING PHYSICIAN: Chino Bishop MD *[facility]* [id number] [place] [address] Transthoracic Echocardiogram Patient: Dinah Aldana Study Date: 11/29/2020 BP: Location: [facility] URN: [id number] : 1955 Age: 65 Height: 59 in / 149.9 cm Gender: F Weight: 219 .5 lb / 99.8 kg BMI/BSA: 44.4 kg/m 2 / 1.92 m 2 *Ordering Physician: * Chino Bishop MD *Interpreting Physician: * Adelfo Mcneal *Financial Services Technician: * Dona Sosa Indications: Hypertensive Heart Disease. Study data: Transthoracic echocardiogram. Comple te 2D, complete spectral Doppler, and color Doppler. Location: [facility]. Patient status: Outpatient. Study status: [facility]. Findings Left ventricle: The cavity size is [...] ere is no PATIENT NAME: DINAH ALDANA 626 regurgitation. Mitral valve: The valve is structurally [...] 11:15 PATIENT NAME: DINAH ALDANA 626 at 111 PATIENT NAME: DINAH ALDANA 3626
[2023-02-10] MEDS ORDERED: METOCLOPRAMIDE 10 MG/2mL INJ ONE (22:01)
[2023-02-10] MEDS ORDERED: ONDANSETRON 4 MG/2 ML VIAL ONE (22:01)
[2023-02-10 22:05] LABS: Absolute Lymphocytes (CBC) 2.1 K/uL (0.7-4.9); Hematocrit 38.6 % (36.0-45.0); Lymphocytes % 27.9 % (15.3-44.8); MCV 86.2 fL (80-100); MPV 7.9 fL (7.6-11.3); RBC Red Blood Cell Count 4.48 M/uL (3.86-4.86)
[2023-02-10 22:16] LABS: Albumin 3.8 g/dL (3.4-5.0); Bilirubin Total 0.4 mg/dL (0.2-1.0); Potassium 3.4 mEq/L (3.5-5.1); Protein, Total 7.5 g/dL (6.4-8.2)
[2023-02-10 22:42] LABS: Specific Gravity 1.022 (1.005-1.030); Urine Bacteria <20 /HPF (<20); Urine Bilirubin NEGATIVE (Negative); Urine Blood Trace (Negative); Urine Clarity Clear (Clear); Urine Color Light-Yellow (Yellow); Urine Glucose NEGATIVE (Negative); Urine Mucus 1+ /HPF (None Seen); Urine Protein NEGATIVE (Negative); Urine RBC <5 /HPF (None Seen); Urine Urobilinogen Normal (Normal); Urine pH 5.5 (5.0-7.0)
--- NOTE | 2023-02-11 00:44 | ER ---
Nurse's Notes [facility] Name: Anaid Martinez Age: 67 yrs Sex: Female : 1955 Arrival Date: 02/10/2023 Time: 20:36 Bed 17 Private MD: Diagnosis: Rectal tenesmus, right indeterminate renal lesion, abdominal discomfort, nausea, hernia, midline abdominal hernia. Presentation: 02/10 20:52 Chief complaint: Patient states: constipation. last normal bowel movement 3 days ago. kl abdominal discomfort. Coronavirus screen: Vaccine status: Patient reports receiving the 2nd dose of the covid vaccine. 20:52 Method Of Arrival: Ambulatory kl 20:52 Acuity: KATHY 3 kl 22:40 Ebola Screen: No symptoms or risks identified at this time. Initial Sepsis Screen: Does ha1 the patient meet any 2 criteria? No. Patient's initial sepsis screen is negative. Does the patient have a suspected source of infection? No. Patient's initial sepsis screen is negative. Risk Assessment: Do you want to hurt yourself or someone else? Patient reports no desire to harm self or others. Onset of symptoms was February 07, 2023. Historical: - Allergies: 22:14 No Known Allergies; ha1 - Immunization history:: Adult Immunizations unknown. - Social history:: Patient/guardian denies using alcohol, street drugs, IV drugs, caffeine, over the counter diet medications, tobacco products, Smoking status: unknown. - Family history:: not pertinent. Screenin:58 [facility] ED Fall Risk Assessment (Adult) History of falling in the last 3 months, ha1 including since admission No falls in past 3 months (0 pts) Confusion or Disorientation No (0 pts) Intoxicated or Sedated No (0 pts) Impaired Gait No (0 pts) Mobility Assist Device Used No (0 pt) Altered Elimination No (0 pt) Score/Fall Risk Level 0 - 2 = Low Risk Oriented to surroundings, Maintained a safe environment, Educated pt \T\ family on fall prevention, incl call for assistance when getting out of bed, Hourly rounding (assess needs \T\ fall precautionary measures) done. 22:40 Abuse screen: Denies threats or abuse. Denies injuries from another. Nutritional ha1 screening: No deficits noted. Tuberculosis screening: No symptoms or risk factors identified. Assessment: 21:30 Reassessment:. General: Appears uncomfortable, Behavior is calm, cooperative. Pain: ha1 Complains of pain in abdomen Pain does not radiate. Pain currently is 6 out of 10 on a pain scale. Neuro: Level of Consciousness is awake, alert, obeys commands, Oriented to person, place, time, situation. Cardiovascular: Patient's skin is warm and dry. Respiratory: Airway is patent Respiratory effort is even, unlabored, Respiratory pattern is regular, symmetrical. GI: Abdomen is non-distended, obese, Bowel sounds present X 4 quads. Abd is soft and non tender Reports constipation, cramping. 21:30 Musculoskeletal: Range of motion: intact in all extremities. ha1 22:37 Reassessment: Patient and/or family updated on plan of care and expected duration. Pain ha1 level reassessed. Patient is alert, oriented x 3, equal unlabored respirations, skin warm/dry/pink. Back from CT. 23:28 Reassessment: Patient and/or family updated on plan of care and expected duration. Pain ha1 level reassessed. Patient is alert, oriented x 3, equal unlabored respirations, skin warm/dry/pink. Patient states symptoms have improved. 02/11 00:30 Reassessment: Patient and/or family updated on plan of care and expected duration. Pain ha1 level reassessed. Patient is alert, oriented x 3, equal unlabored respirations, skin warm/dry/pink. Vital Signs: 02/10 20:52 BP 134 / 89; Pulse 95; Resp 20; Temp 97.6; Pulse Ox 97% ; Weight 104.33 kg; Height 4 kl ft. 11 in. ; Pain 7/10; 21:32 BP 161 / 75; Pulse 80; Resp 16 S; Pulse Ox 98% on R/A; ha1 22:00 BP 124 / 72; Pulse 79; Resp 16 S; Pulse Ox 96% on R/A; ha1 23:00 BP 147 / 83; Pulse 85; Resp 19 S; Pulse Ox 98% on R/A; ha1 23:30 BP 126 / 71; Pulse 74; Resp 18 S; Pulse Ox 95% on R/A; ha1 02/11 00:30 BP 135 / 72; Pulse 78; Resp 18 S; Pulse Ox 96% on R/A; ha1 02/10 20:52 Body Mass Index 46.45 (104.33 kg, 149.86 cm) 02/10 20:52 Pain Scale: Adult ED Course: 02/10 20:39 Patient arrived in ED. ag3 20:54 Triage completed. kl 20:58 Arm band placed on right wrist. ha1 20:58 Patient has correct armband on for positive identification. Placed in gown. Bed in low ha1 position. Call light in reach. Side rails up X 1. Adult w/ patient. 21:07 Juan Carlos Kolb MD is Attending Physician. sp4 21:33 Abbie Souza, BRYANNA is Primary Nurse. ha1 21:40 No provider procedures requiring assistance completed. Inserted saline lock: 22 gauge ha1 in right antecubital area, using aseptic technique. Blood collected. 21:52 CBC with Diff Sent. ha1 21:52 CMP Sent. ha1 21:52 Lipase Sent. ha1 22:14 CMP Sent. ha1 22:14 Lipase Sent. ha1 22:32 CT Abd/Pelvis - IV Contrast Only In Process Unspecified. EDMS 02/11 00:43 Del Maldonado MD is Referral Physician. sp4 01:05 IV discontinued, intact, bleeding controlled, No redness/swelling at site. Pressure ha1 dressing applied. Administered Medications: 02/10 22:00 Drug: metoCLOPramide IVP 10 mg Route: IVP; Site: left antecubital; ha1 22:41 Follow up: Response: No adverse reaction ha1 22:04 Drug: Ondansetron IVP 4 mg Route: IVP; Site: right antecubital; ha1 22:30 Follow up: Response: No adverse reaction; Nausea is decreased 1 02/11 00:45 Drug: Dicyclomine PO 20 mg Route: PO; ha1 01:03 Follow up: Response: No adverse reaction ha1 00:45 Drug: PHENobarbital PO 60 mg Route: PO; ha1 01:02 Follow up: Response: No adverse reaction; RASS: Alert and Calm (0) ha1 Medication: 01:05 VIS not applicable for this client. ha1 Outcome: 00:43 Discharge ordered by . sp4 01:05 Discharged to home ambulatory. ha1 01:05 Condition: stable 01:05 Discharge instructions given to patient, Instructed on discharge instructions, follow up and referral plans. medication usage, Demonstrated understanding of instructions, follow-up care, medications, Prescriptions given X 1. 01:06 Patient left the ED. ha1 Signatures: Dispatcher [employer] Nevin Dickens RN RN kl Gomez, Alice ag3 Abbie Souza RN RN ha1 Juan Carlos Kolb MD MD sp4 Corrections: (The following items were deleted from the chart) 02/10 20:55 20:54 PMHx: borderline diabetic; kl kl 20:55 20:54 PMHx: Arthritis; kl kl 20:55 20:54 PMHx: Hypertension; kl kl 20:55 20:54 PSHx: knee replacement, left; kl kl 22:15 20:54 Allergies: Hydrocodone-Acetaminophen [Inactive]; kl ha1
--- NOTE | 2023-02-11 00:45 | EDPHYS ---
Physician Documentation [facility] Name: Anaid Martinez Age: 67 yrs Sex: Female : 1955 Arrival Date: 02/10/2023 Time: 20:36 Bed 17 Private MD: ED Physician Juan Carlos Kolb HPI: 02/10 21:08 This 67 yrs old Female presents to ER via Ambulatory with complaints of sp4 Constipation. 21:15 87-year-old female presents with complaint of constipation nausea vomiting and sp4 abdominal pain for the past 5 days. Patient states she was not able to have a bowel movement for the past 5 days. Patient has tried [id number] laxative tablets with no success and kitp-[id number]-[id number] Dulcolax suppositories with no success. . Historical: - Allergies: 22:14 No Known Allergies; ha1 - Immunization history:: Adult Immunizations unknown. - Social history:: Patient/guardian denies using alcohol, street drugs, IV drugs, caffeine, over the counter diet medications, tobacco products, Smoking status: unknown. - Family history:: not pertinent. ROS: 21:15 Constitutional: Negative for fever, chills, and weight loss, Eyes: Negative for injury, sp4 pain, redness, and discharge, ENT: Negative for injury, pain, and discharge, Neck: Negative for injury, pain, and swelling, Cardiovascular: Negative for chest pain, palpitations, and edema, Respiratory: Negative for shortness of breath, cough, wheezing, and pleuritic chest pain, Abdomen/GI: Positive for abdominal pain, abdominal bloating, nausea or vomiting, positive constipation. Negative for diarrhea Back: Negative for injury and pain, : Negative for injury, bleeding, discharge, and swelling, MS/Extremity: Negative for injury and deformity, Skin: Negative for injury, rash, and discoloration, Neuro: Negative for headache, weakness, numbness, tingling, and seizure, Psych: Negative for depression, anxiety, Allergy/Immunology: Negative for hives, rash, and allergies Endocrine: Negative for neck swelling, polydipsia, polyuria, polyphagia, and weight changes Hematologic/Lymphatic: Negative for swollen nodes, abnormal bleeding, and unusual bruising Exam: 21:15 Constitutional: This is a well developed, well nourished patient who is awake, alert, sp4 and in no acute distress. Overweight female Head/Face: Normocephalic, atraumatic. Eyes: Pupils equal round and reactive to light, extra-ocular motions intact. Lids and lashes normal. Conjunctiva and sclera are not injected. Cornea within normal limits. Periorbital areas with no swelling, redness, or edema. ENT: Nares patent. No nasal discharge, no septal abnormalities noted. Tympanic membranes are normal and external auditory canals are clear. Oropharynx with no redness, swelling, or masses, exudates, or evidence of obstruction, uvula midline. Mucous membranes moist. Neck: Trachea midline, no thyromegaly or masses palpated, and no cervical lymphadenopathy. Supple, full range of motion without nuchal rigidity, or vertebral point tenderness. No Meningismus. Chest/axilla: Normal chest wall appearance and motion. Nontender with no deformity. No lesions are appreciated. Cardiovascular: Regular rate and rhythm with a normal S1 and S2. No gallops, murmurs, or rubs. Normal PMI, no JVD. No pulse deficits. Respiratory: Lungs have equal breath sounds bilaterally, clear to auscultation and percussion. No rales, rhonchi or wheezes noted. No increased work of breathing, no retractions or nasal flaring. Abdomen/GI: Soft, non-tender, with normal bowel sounds. No distension or tympany. No guarding or rebound. No evidence of tenderness throughout. Back: No spinal tenderness. No costovertebral tenderness. Female : Normal external genitalia. Skin: Warm, dry with normal turgor. Normal color with no rashes, no lesions, and no evidence of cellulitis. MS/ Extremity: Pulses equal, no cyanosis. Neurovascular intact. Full, normal range of motion. Neuro: Awake and alert, GCS 15, oriented to person, place, time, and situation. Cranial nerves II-XII grossly intact. Motor strength 5/5 in all extremities. Sensory grossly intact. Psych: Awake, alert, with orientation to person, place and time. Behavior, mood, and affect are within normal limits 02/11 00:41 Abdomen/GI: Rectal exam: rectal tone normal, hemorrhoid(s), are not appreciated, mass, sp4 is not appreciated, swelling, is not appreciated, fecal impaction, is not appreciated, the exam is chaperoned by the nurse, There is no mass, no effusion, no fistula, no impaction, no bleeding, no melena. Anal skin tags present.. Vital Signs: 02/10 20:52 BP 134 / 89; Pulse 95; Resp 20; Temp 97.6; Pulse Ox 97% ; Weight 104.33 kg; Height 4 kl ft. 11 in. ; Pain 7/10; 21:32 BP 161 / 75; Pulse 80; Resp 16 S; Pulse Ox 98% on R/A; ha1 22:00 BP 124 / 72; Pulse 79; Resp 16 S; Pulse Ox 96% on R/A; ha1 23:00 BP 147 / 83; Pulse 85; Resp 19 S; Pulse Ox 98% on R/A; ha1 23:30 BP 126 / 71; Pulse 74; Resp 18 S; Pulse Ox 95% on R/A; ha1 02/11 00:30 BP 135 / 72; Pulse 78; Resp 18 S; Pulse Ox 96% on R/A; ha1 02/10 20:52 Body Mass Index 46.45 (104.33 kg, 149.86 cm) 02/10 20:52 Pain Scale: Adult kl MDM: 02/10 21:12 Patient medically screened. sp4 02/11 00:37 Differential Diagnosis Rectal tenesmus , rectal pain, hemorrhoid, constipation, fecal sp4 impaction. Data reviewed: vital signs, nurses notes, old medical records, lab test result(s), radiologic studies, doppler. Consideration of Admission/Observation Patient was admitted/placed on observation. Escalation of care including admission/observation considered. ED course: CT revealed indeterminate lesion in the right kidney measuring 2.8 cm. Should be followed up with multiphase contrast-enhanced CT or MRI. To exclude primary renal neoplasm. Otherwise there is fat containing complex epigastric hernia. Rectal exam today revealed anal skin tags, no mass, no tenderness, no fissure, no fistula, no masses, no impaction. I suspect patient has a rectal tenesmus. Patient was advised to see machine hose cutter for lower endoscopy. . 00:41 ED course: Patient was provided her CT report and labs and advised to see a primary sp4 care MD for follow-up also machine hose cutter as well for follow-up will provide referral to gastroenterology. At this time there is no sign of emergent medical condition. Will advise patient to follow-up for her acute finding of indeterminate right renal lesion. Also with suspected rectal tenesmus secondary to some unidentified problem without emergent abnormality on the CAT scan. . 02/10 21:14 Order name: CBC with Diff; Complete Time: 00:20 sp4 02/10 21:14 Order name: CMP; Complete Time: 00:20 sp4 02/10 21:14 Order name: Lipase; Complete Time: 00:20 sp4 02/10 21:14 Order name: Urinalysis w/ reflexes; Complete Time: 00:20 sp4 02/10 21:14 Order name: CT Abd/Pelvis - IV Contrast Only sp4 02/10 21:14 Order name: IV Saline Lock; Complete Time: 21:51 sp4 02/10 21:14 Order name: Labs collected and sent; Complete Time: 21:52 sp4 Administered Medications: 02/10 22:00 Drug: metoCLOPramide IVP 10 mg Route: IVP; Site: left antecubital; ha1 22:41 Follow up: Response: No adverse reaction ha1 22:04 Drug: Ondansetron IVP 4 mg Route: IVP; Site: right antecubital; ha1 22:30 Follow up: Response: No adverse reaction; Nausea is decreased ha1 02/11 00:45 Drug: Dicyclomine PO 20 mg Route: PO; ha1 01:03 Follow up: Response: No adverse reaction ha1 00:45 Drug: PHENobarbital PO 60 mg Route: PO; ha1 01:02 Follow up: Response: No adverse reaction; RASS: Alert and Calm (0) ha1 Disposition Summary: 02/11/23 00:43 Discharge Ordered Location: Home sp4 Problem: new sp4 Symptoms: have improved sp4 Condition: Stable sp4 Diagnosis - Rectal tenesmus, right indeterminate renal lesion, abdominal discomfort, nausea, sp4 hernia, midline abdominal hernia. Followup: sp4 - With: Del Maldonado MD - When: 7 - 10 days - Reason: Recheck today's complaints Discharge Instructions: - Discharge Summary Sheet sp4 - Abdominal Pain, Adult, [id number]-zx-[id number] sp4 - Clear Liquid Diet, Adult, Ozvh-ef-Cusx sp4 Prescriptions: - Zofran 4 mg Oral Tablet - take 1 tablet by ORAL route every 6 hours As needed PRN nausea; 30 tablet; sp4 Refills: 0, Product Selection Permitted Signatures: Dispatcher [employer] Nevin Dickens RN RN kl Ayala, Heidy, RN RN ha1 Juan Carlos Kolb MD MD sp4 Corrections: (The following items were deleted from the chart) 02/10 20:55 20:54 PMHx: borderline diabetic; kl kl 20:55 20:54 PMHx: Arthritis; kl kl 20:55 20:54 PMHx: Hypertension; kl kl 20:55 20:54 PSHx: knee replacement, left; kl kl 22:15 20:54 Allergies: Hydrocodone-Acetaminophen [Inactive]; kl ha1
[2023-02-11] MEDS ORDERED: PHENOBARBITAL 32.4 MG TABLET PO ONE (00:48)
[2023-02-11] MEDS ORDERED: DICYCLOMINE HCL 10 MG CAP ONE (00:48)
[2023-02-11 02:50] VITALS: TEMP 97.6
[2023-02-11 02:58] VITALS: BP 135/72; O2SAT 96
--- NOTE | 2023-02-12 13:30 | RAD REPORT ---
EXAM DESCRIPTION: CT - Abdomen Pelvis W Contrast - 02/11/2023 7:09 am CLINICAL HISTORY: 67 years Female abdominal pain, constipation TECHNIQUE: Contiguous axial images obtained through the abdomen and pelvis following intravenous con trast administration. Coronal and sagittal reformatted images provided. This CT exam was performed according to our departmental dose-optimization program, which includes on e or more of the following dose reduction techniques: automated exposure control, adjustment of the m A and/or kV according to patient size, and/or use of iterative reconstruction technique. COMPARISON: 09/21/2018 FINDINGS: Again seen is a complex epigastric midline hernia containing fat only. Additional small fa t-containing umbilical hernia. Steatosis of the liver again noted without focal lesion. The biliary tree, gallbladder, pancreas, spleen, bilateral adrenal glands, left kidney, uterus, ovari es, and urinary bladder are normal. Stable subcentimeter upper pole cyst on the right, benign. Previously seen simple cystic lesion also in the upper pole of the right kidney now demonstrates soft tissue attenuation and indistinct margins , measuring up to 2.8 cm. The right kidney is otherwise normal. Prior gastric sleeve surgery. Small sliding hiatal hernia. There is no bowel inflammation, obstructio n, free intraperitoneal air, or ascites. Mild atherosclerosis without abdominal aortic aneurysm or dissection. Chronic degenerative changes present throughout the spine and at both hips. No acute fracture. IMPRESSION: There is now an indeterminate lesion in the right kidney measuring up to 2.8 cm. This sh ould be followed up with multiphase contrast-enhanced CT or MRI to exclude a primary renal neoplasm. Otherwise stable exam with a fat-containing complex epigastric hernia. Electronically signed by: Maty Ball MD 02/10/2023 11:47 PM CDT Due to temporary technical issues with the PACS/Fluency reporting system, reports are being signed by the in house radiologists without review as a courtesy to insure prompt reporting. The interpreting radiologist is fully responsible for the content of the report.
== END 2023-02-11 01:06 | disposition home or self-care (01) ==
LOC: ER 20:36
DX: K45.8 Other specified abdominal hernia without obstruction or gangrene (principal); N28.89 Other specified disorders of kidney and ureter; R19.8 Other specified symptoms and signs involving the digestive system and abdomen; R11.0 Nausea
CPT/HCPCS: 85025; 81001; 36415; 83690; 80053; 74177; Q9967; J2765; J2405